=== PATIENT | female | born 1950 | race Caucasian/White ===

== ENCOUNTER → 2017-08-13 11:37 | Outpatient (CLI) | payer MEDICARE, OTHER, SELFPAY ==
[2017-06-03 06:57] VITALS: BMI 39.2
[2017-06-03 08:10] VITALS: BP 126/72
[2017-08-18 12:25] LABS: Vitamin D 1,25-Dihydroxy 55.5 pg/mL (19.9-79.3)
== END ==
PROVIDERS: Family Provider Family Medicine; PCP Family Medicine; Visit Provider Family Medicine
DX: E55.9 Vitamin D deficiency, unspecified (principal)
CPT/HCPCS: 36415; 82652

== ENCOUNTER → 2017-08-26 16:42 | Outpatient (CLI) | payer MEDICARE, OTHER, SELFPAY ==
[2017-08-26 12:55] LABS: Anion Gap 7 (5-15); BUN 11 mg/dL (7-18); Calcium,Total 8.7 mg/dL (8.5-10.1); Chloride 103 mmol/L (98-107); EST Glomerular Filtration Rate 53 mL/min (>60); Est Glom Filt Rate - Afr Amer 64 mL/min (>60); Glucose 123 mg/dL (74-106); Potassium 4.3 mmol/L (3.5-5.1); Sodium Level 140 mmol/L (136-145)
== END ==
PROVIDERS: Family Provider Family Medicine; PCP Family Medicine; Visit Provider Family Medicine
DX: Z00.00 Encounter for general adult medical examination without abnormal findings (principal)
CPT/HCPCS: 36415; 80048

== ENCOUNTER → 2017-12-16 10:08 | Outpatient (CLI) | payer MEDICARE, OTHER, SELFPAY ==
[2017-12-16 11:59] LABS: AST(SGOT) 25 U/L (15-37); Alanine Aminotransfer ALT/SGPT 32 U/L (13-56); Albumin, Serum 3.5 g/dL (3.2-5.0); Alkaline Phosphatase 97 U/L (45-117); Bilirubin, Direct 0.13 mg/dL (0.00-0.30); Cholesterol 139 mg/dL (200); Globulin 3.9 g/dL (2.2-4.2); High Density Lipoprotein 41 mg/dL; Protein, Total 7.4 g/dL (6.4-8.2); Triglycerides 133 mg/dL; Very Low Density Lipoprotein 27 mg/dL (5-40)
== END ==
PROVIDERS: Family Provider Family Medicine; PCP Family Medicine; Visit Provider Nurse Practitioner Family
DX: E78.5 Hyperlipidemia, unspecified (principal)
CPT/HCPCS: 36415; 80061; 80076

== ENCOUNTER → 2018-09-24 09:45 | Outpatient (CLI) | payer MEDICARE, OTHER, SELFPAY ==
[2018-06-18 10:08] VITALS: BMI 40.6
--- NOTE | 2018-09-24 09:51 | VDLE_ITS ---
Reason For Study: LEG PAIN RIGHT LEFT GSV is normal. CFV is compressible, spontaneous, phasic, CFV is compressible, spontaneous, phasic, competent, and demonstrates normal competent and demonstrates normal augmentation. augmentation. FV is compressible, spontaneous, phasic, competent and demonstrates normal augmentation. POP V is compressible, spontaneous, phasic, competent and demonstrates normal augmentation. T/P Trunk is compressible. PTV is compressible. RT PerV is compressible. Procedure Exam performed in department. A preliminary report was called and/or faxed to Dr. Bolden. Interpretation Summary Deep veins of the right lower extremity are patent and compressible segmentally. There is no evidence of right lower extremity deep vein thrombosis. Valvular competence appears intact within the proximal deep venous system on the right . The right greater saphenous vein appears patent and compressible segmentally. Ordering Physician: Justin Bolden Referring Physician: Justin Bolden Performed By: Nita Isaac RVT
== END ==
PROVIDERS: Family Provider Family Medicine; PCP Family Medicine; Referring Provider Family Medicine; Visit Provider Family Medicine
DX: M79.661 Pain in right lower leg (principal)
CPT/HCPCS: 93971

== ENCOUNTER → 2018-10-21 | Outpatient (CLI) | payer MEDICARE, OTHER, SELFPAY ==
[2018-06-18 10:08] VITALS: BMI 40.6
[2018-10-21 12:37] LABS: Anion Gap 7 (5-15); BUN 14 mg/dL (7-18); BUN/Creat Ratio 14.3 RATIO (10-20); Calcium,Total 8.2 mg/dL (8.5-10.1); Chloride 103 mmol/L (98-107); Cholesterol 151 mg/dL (200); Creatinine, Serum 0.98 mg/dL (0.55-1.02); EST Glomerular Filtration Rate 60 mL/min (>60); Est Glom Filt Rate - Afr Amer 73 mL/min (>60); Glucose 150 mg/dL (74-106); High Density Lipoprotein 37 mg/dL; Potassium 3.9 mmol/L (3.5-5.1); Sodium Level 139 mmol/L (136-145); Triglycerides 133 mg/dL; Very Low Density Lipoprotein 27 mg/dL (5-40)
[2018-10-21 13:05] LABS: Vitamin D,25 Hydroxy 18.2 ng/mL (29.95-100.01)
== END | disposition home or self-care (01) ==
LOC: MFPLAB 09:48
PROVIDERS: Family Provider Family Medicine; PCP Family Medicine; Referring Provider Family Medicine; Visit Provider Family Medicine
DX: Z00.00 Encounter for general adult medical examination without abnormal findings (principal); E55.9 Vitamin D deficiency, unspecified
CPT/HCPCS: 36415; 80048; 80061; 82306

== ENCOUNTER → 2019-11-01 11:51 | Outpatient (CLI) | payer MEDICARE, OTHER, SELFPAY ==
[2019-06-21 08:49] VITALS: BMI 41.5
[2019-11-01 15:16] LABS: ALB/GLOB Ratio 1.1 RATIO (0.9-2.4); AST(SGOT) 24 U/L (15-37); Alanine Aminotransfer ALT/SGPT 34 U/L (13-56); Albumin, Serum 3.6 g/dL (3.2-5.0); Alkaline Phosphatase 113 U/L (45-117); Anion Gap 5 (5-15); BUN 14 mg/dL (7-18); BUN/Creat Ratio 15.5 RATIO (10-20); Calcium,Total 8.4 mg/dL (8.5-10.1); Chloride 104 mmol/L (98-107); Cholesterol 164 mg/dL (200); EST Glomerular Filtration Rate 66 mL/min (>60); Est Glom Filt Rate - Afr Amer 80 mL/min (>60); Globulin 3.4 g/dL (2.2-4.2); Glucose 157 mg/dL (74-106); High Density Lipoprotein 43 mg/dL; Potassium 4.4 mmol/L (3.5-5.1); Sodium Level 138 mmol/L (136-145); Triglycerides 156 mg/dL; Very Low Density Lipoprotein 31 mg/dL (5-40)
[2019-11-01 16:00] LABS: Vitamin D,25 Hydroxy 25.2 ng/mL
== END ==
PROVIDERS: PCP Family Medicine; Referring Provider Family Medicine; Visit Provider Family Medicine
DX: E78.5 Hyperlipidemia, unspecified (principal); E55.9 Vitamin D deficiency, unspecified
CPT/HCPCS: 36415; 80053; 80061; 82306

== ENCOUNTER → 2019-12-20 10:00 | Outpatient (CLI) | payer MEDICARE, OTHER, SELFPAY ==
[2019-06-21 08:49] VITALS: BMI 41.5
--- NOTE | 2019-12-20 10:04 | BI_ITS ---
MAMMOGRAPHY - BILATERAL SCREENING REASON FOR EXAM: Female, 69 years old. Routine annual screening examination. PERTINENT HISTORY: Non-contributory. Remote left breast biopsy. TECHNIQUE: Digital bilateral breast arturo (3D mammographic acquisition) in the CC and MLO projections. 2-D mediolateral oblique (MLO) and craniocaudad (CC) views of both breasts were obtained. CAD: Full Field Digital Mammography with Computer Added Detection was performed. COMPARISON: Comparison is made with prior examination dated February 05, 2017 and June 05, 2014. FINDINGS: Breast Composition: The breasts are almost entirely fatty. There are no dominant masses or suspicious calcifications. No other significant abnormalities are identified. There has been no significant change since the prior study. BI/SCREEN MAMM (CAD) W/ARUTRO BILAT IMPRESSION: Stable bilateral screening mammogram. Yearly follow-up mammogram recommended. (A) ASSESSMENT CATEGORY: BIRADS Category 1: Negative. A letter regarding these results will be sent to the patient by the facility within 30 days. Approximately 10% of breast cancers are not detected by mammography. A normal mammogram should not delay biopsy of a clinically suspicious abnormality. [id number] Electronically Signed: Cisco Calderon, at 12:24 EDT , Service support ,
--- NOTE | 2019-12-20 10:21 | BD_ITS ---
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 COMPARISON: None. FINDINGS: Lumbar Spine (L1-L4): g/cm2 (1.338) / T-score (1.1) / Z-score (2.8) Findings are suggestive of normal bone density with a low fracture risk. Left Femur Total: g/cm2 (0.958) / T-score (-0.4) / Z-score (1.0) Left Femoral Neck: g/cm2 (0.882) / T-score (-1.1) / Z-score (0.5) BD/Dexa Bone Density Study IMPRESSION: The patient is considered osteopenic as outlined below according to World Julian Organization (WHO) criteria with a low fracture risk. Reference Information: The T-score is the number of standard deviations above or below the standard which is normal for young adults at their peak bone mineral density. The World Health Organization (WHO) interprets the T-scores as follows: Above -1 Normal bone density Between -1 and -2.5 Osteopenia Equal to / or below -2.5 Osteoporosis As a practical clinical guideline, osteopenia may be graded as follows: Mild -1 through -1.5 Moderate -1.6 through -2.0 Severe -2.1 through -2.4 The Z-score is the number of standard deviations above or below age-matched controls. A Z-score of less than -1.5 would be considered abnormal. References: 1. NIH Osteoporosis and Related Bone Diseases http://www.osteo.org 2. International Society for Clinical Densitometry http://www.iscd.org 3. National Osteoporosis Foundation http://www.nof.org Electronically Signed: Cisco Calderon, at 14:55 EDT , Service support ,
== END ==
PROVIDERS: PCP Family Medicine; Referring Provider Family Medicine; Visit Provider Family Medicine
DX: Z12.31 Encounter for screening mammogram for malignant neoplasm of breast (principal); N95.9 Unspecified menopausal and perimenopausal disorder
CPT/HCPCS: 77063; 77067; 77080

== ENCOUNTER → 2020-12-14 13:54 | Outpatient (CLI) | payer MEDICARE, OTHER, SELFPAY ==
[2020-06-21 10:22] VITALS: BMI 44.4
--- NOTE | 2020-12-14 13:59 | CT_ITS ---
STUDY: LOW DOSE CT LUNG CANCER SCREENING REASON FOR EXAM: Female, 70 years old. SMOKING. Patient smoked 1 pack per day for 50 years. RADIATION DOSAGE (If Supplied By Facility): CTDIvol = ( 4.02 ) mGy, DLP = ( 119.33 ) mGycm TECHNIQUE: No contrast was administered. Low dose technique was utilized (average mAS-38 and kVp 120). 1.25 mm axial source images with a slice interval of 1.25-mm were reconstructed in lung windows. 2.5 mm axial source images with a slice interval of 2.5-mm were reconstructed in lung windows. 5.0 mm axial source images with a slice interval of 5.0-mm were reconstructed in soft tissue windows. Nodule measured using lung windows on PACS and/or independent workstation with automated measurement of minimum and maximum diameter. Nodule measurement reported as average diameter rounded to the nearest whole number. Growth is defined as an increase ins size of greater than 1.5 mm. COMPARISON: None. NODULES: There is a 2.6 mm noncalcified nodule in the peripheral lateral aspect of the right upper lobe as seen on axial image #59 and coronal image #178. 2 tiny calcified granulomas are seen in the anterior aspect of the right upper lobe. Emphysema: Minimal scarring in the lateral aspect of the left lower lobe. Endobronchial lesion: None Aorta: Atherosclerotic plaque formation. Coronary arteries: Coronary artery calcification. Heart: Unremarkable Pulmonary artery: Unremarkable Mediastinal nodes: Small mediastinal lymph nodes. Other chest and abdominal findings: CT/Low Dose CT Lung Screening IMPRESSION: Lung-RADS category 2 - Continue annual screening with LDCT in 12 months. IMPORTANT NOTES FOR USE: ACR Lung-RADS Version 1.1 Assessment Categories Release Date: 2018 Category: Coded 0-4 bases on nodule(s) with highest degree of suspicion. Negative screen is defined as categories 1 and 2; a positive screen is defined as categories 3 and 4. Category 3 and 4A nodules that are unchanged on interval CT should be coded as category 2, and individuals returned to screening in 12 months. Category 4X: Category 3 or 4 nodules with additional imaging findings that increase the suspicion of lung cancer, such as spiculation, GGN that doubles in size in 1 year, enlarged lymph notes, etc. Category Modifiers: S (significant finding unrelated to lung cancer) Electronically Signed: Cisco Calderon MD at 15:05 EDT , Service support ,
== END ==
PROVIDERS: PCP Family Medicine; Referring Provider Family Medicine; Visit Provider Family Medicine
DX: F17.210 Nicotine dependence, cigarettes, uncomplicated (principal)
CPT/HCPCS: 71271

== ENCOUNTER → 2021-01-18 11:07 | Outpatient (CLI) | payer MEDICARE, OTHER, SELFPAY ==
[2020-06-21 10:22] VITALS: BMI 44.4
[2021-01-18 12:31] LABS: Anion Gap 5 (5-15); BUN 12 mg/dL (7-18); BUN/Creat Ratio 11.5 RATIO (10-20); Chloride 102 mmol/L (98-107); Cholesterol 139 mg/dL (200); Creatinine, Serum 1.04 mg/dL (0.55-1.02); EST Glomerular Filtration Rate 56 mL/min (>60); Est Glom Filt Rate - Afr Amer 67 mL/min (>60); Glucose 134 mg/dL (74-106); High Density Lipoprotein 43 mg/dL; Potassium 4.3 mmol/L (3.5-5.1); Sodium Level 137 mmol/L (136-145); Triglycerides 156 mg/dL; Very Low Density Lipoprotein 31 mg/dL (5-40)
== END ==
PROVIDERS: PCP Family Medicine; Visit Provider Family Medicine
DX: I10 Essential (primary) hypertension (principal)
CPT/HCPCS: 36415; 80048; 80061

== ENCOUNTER → 2021-06-19 12:45 | Outpatient (CLI) | payer MEDICARE, OTHER, SELFPAY ==
--- NOTE | 2021-06-19 12:48 | ECHOCS_ITS ---
Version 2 Procedure The study was technically difficult. Contrast injection was performed. Exam performed in department. Left Ventricle Normal LV size. Moderate concentric left ventricular hypertrophy. Left ventricular systolic function is normal. The estimated ejection fraction is 60 %. Stage 1 diastolic dysfunction. No regional wall motion abnormalities noted. Right Ventricle Normal RV size. Normal systolic function. Atria Normal left atrium. Normal right atrium. Mitral Valve Normal mitral valve. Tricuspid Valve The tricuspid valve is not well visualized. Aortic Valve The aortic valve is not well visualized. Pulmonic Valve The pulmonic valve is not well visualized. Great Vessels Normal aortic root. The pulmonary is not well visualized. Normal inferior vena cava. Pericardium/Pleural No pericardial effusion. Medication 22 gauge I.V. with prn adaptor inserted into left arm. Diluted definity 2ml given slow IV push to enhance endocardial definition. MMode/2D Measurements & Calculations LVIDd: 4.0 cm IVSd: 1.8 cm LA dimension: 3.6 cm LVIDs: 2.4 cm LVPWd: 1.6 cm FS: 40.1 % LAV(MOD-sp4): 50.0 ml LA A4 area: 18.8 cm2 RA A4 area: 12.8 cm2 Time Measurements MV dec time: 0.35 sec Doppler Measurements & Calculations MV E max jose: 76.2 cm/sec Lat Peak E' Jose: 7.4 cm/sec Med Peak E' Jose: 7.3 cm/sec MV A max jose: 99.0 cm/sec E/E' lat: 10.3 E/E' med: 10.4 MV E/A: 0.77 MV V2 max: 119.8 cm/sec MV P1/2t max jose: 109.1 cm/sec Ao V2 max: 130.3 cm/sec MV max P.7 mmHg MV P1/2t: 86.4 msec Ao max P.8 mmHg MV V2 mean: 72.9 cm/sec MV dec slope: 369.8 cm/sec2 MV mean P.4 mmHg MV V2 VTI: 35.4 cm MVA(P1/2t): 2.5 cm2 LV V1 max: 121.8 cm/sec PA V2 max: 116.6 cm/sec LV V1 max P.9 mmHg ECHO/Echo Complete W/ Contrast Interpretation Summary Normal LV size. Left ventricular systolic function is normal. The estimated ejection fraction is 60 %. Stage 1 diastolic dysfunction. Moderate concentric left ventricular hypertrophy. Contrast injection was performed. The study was technically difficult. Ordering Physician: Kamaljit Trevizo Referring Physician: Justin Bolden Performed By: Keven Mera RCS
== END ==
PROVIDERS: PCP Family Medicine; Referring Provider Internal Medicine Cardiovascular Disease; Visit Provider Internal Medicine Cardiovascular Disease
DX: I25.10 Atherosclerotic heart disease of native coronary artery without angina pectoris (principal)
CPT/HCPCS: 93306; Q9957; A4216; C8929

== ENCOUNTER → 2022-09-12 | Outpatient (CLI) | payer MEDICARE, OTHER, SELFPAY ==
[2022-09-12 18:16] LABS: ALB/GLOB Ratio 0.8 RATIO (0.9-2.4); AST(SGOT) 33 U/L (15-37); Alanine Aminotransfer ALT/SGPT 37 U/L (13-56); Albumin, Serum 3.5 g/dL (3.2-5.0); Alkaline Phosphatase 94 U/L (45-117); Anion Gap 8 (5-15); BUN 11 mg/dL (7-18); BUN/Creat Ratio 11.8 RATIO (10-20); Chloride 100 mmol/L (98-107); Cholesterol 139 mg/dL (200); Creatinine, Serum 0.94 mg/dL (0.55-1.02); EST Glomerular Filtration Rate 63 mL/min (>60); Est Glom Filt Rate - Afr Amer 76 mL/min (>60); Globulin 4.3 g/dL (2.2-4.2); Glucose 143 mg/dL (74-106); High Density Lipoprotein 44 mg/dL; Potassium 4.2 mmol/L (3.5-5.1); Protein, Total 7.8 g/dL (6.4-8.2); Sodium Level 139 mmol/L (136-145); Triglycerides 140 mg/dL; Very Low Density Lipoprotein 28 mg/dL (5-40)
== END | disposition home or self-care (01) ==
LOC: MFPLAB 14:10
PROVIDERS: PCP Family Medicine; Referring Provider Family Medicine; Visit Provider Family Medicine
DX: E78.5 Hyperlipidemia, unspecified (principal)
CPT/HCPCS: 36415; 80053; 80061

== ENCOUNTER 2023-03-19 14:14 | Inpatient (IN) | payer MEDICARE, OTHER, SELFPAY ==
[2023-03-19] VITALS (10 sets, daily range): BP systolic 136–203; BP diastolic 73–121; PULSE 62–98; RESP 16–24; TEMP 36.3–36.6; O2SAT 68–99; BMI 51.8; BMI 41.8
--- NOTE | 2023-03-19 14:37 | EKG12_ITS ---
Test Reason : SOB Blood Pressure : / mmHG Vent. Rate : 071 BPM Atrial Rate : 071 BPM P-R Int : 198 ms QRS Dur : 076 ms QT Int : 384 ms P-R-T Axes : 064 -25 058 degrees QTc Int : 417 ms Sinus rhythm with Premature supraventricular complexes Septal infarct , age undetermined Abnormal ECG Confirmed by MIKAELA BEYER, CINTHYA ([id number]), newspaper managing editor VANDANA ALVARADO ([id number]) on 03/24/2023 2:03:09 PM Referred By: JASEN Confirmed By:CINTHYA AL MD
--- NOTE | 2023-03-19 14:41 | EDS_ITS ---
HPI History of Present Illness Chief Complaint: Shortness of Breath Narrative Narrative: 72-year-old female presents with dyspnea. She has noticed it over the last couple of months but really over the last couple of weeks she has noticed even worse. She says she states she is gaining weight but she does not on a scale. She does have some ankle edema and left foot edema which is noticed over the last couple weeks as well. She states that currently she thinks she could walk from her room to the triage station, however couple of months ago she could walk much further without a difficulty. She denies any chest pain. No fevers or chills. Patient has history of COPD and is currently weaning down. She states he has not had any cigarettes today and is really only of smoking a couple a day. She states she is going to stop now. She does not feel like she is wheezing. [facility] Medical History Atherosclerotic heart disease of [place] coronary artery without angina pectoris Bronchitis COPD (chronic obstructive pulmonary disease) Diabetes Essential (primary) hypertension Hyperlipidemia LBBB (left bundle branch block) Nicotine abuse Nonischemic cardiomyopathy Home Medications albuterol sulfate 90 mcg/actuation aerosol inhaler 2 puff inhalation Q4H PRN SHORTNESS OF BREATH/WHEEZING 10/02/16 [History Last Taken Unknown] aspirin 81 mg tablet,delayed release 81 mg PO DAILY HEART HEALTH 10/02/16 [History Last Taken 03/18/23] imipramine HCl 25 mg tablet 25 - 50 mg PO QHS BLADDER CONTROL 10/02/16 [History Last Taken 03/18/23] lisinopril 20 mg tablet 20 mg PO BID BLOOD PRESSURE 10/02/16 [History Last Taken 03/18/23] simvastatin 40 mg tablet 40 mg PO QHS CHOLESTEROL 10/02/16 [History Last Taken 03/18/23] cholecalciferol (vitamin D3) 50 mcg (2,000 unit) capsule 2,000 unit PO DAILY SUPPLEMENT 11/24/17 [History Last Taken 03/18/23] carvedilol 25 mg tablet 25 mg PO BID HEART #180 tabs 09/03/20 [Rx Last Taken 03/18/23] Allergy/AdvReac Type Severity Reaction Status Date / Time Iodinated Contrast Media Allergy Other Verified 10/21/22 13:06 [CONTRASTS] meperidine [From Demerol] Allergy Unknown Verified 10/21/22 13:06 Penicillins [PCN] Allergy Rash Verified 10/21/22 13:06 Family History Mother Hypertension Diabetes Father Cancer Surgical History History of appendectomy History of cataract surgery History of cholecystectomy History of colonoscopy with polypectomy History of left heart catheterization (09/03/11) History of total hip arthroplasty Social History Smoking Status: Current every day smoker tobacco type: cigarettes alcohol intake: current substance use type: does not use ROS ROS ED Review of Systems ROS Unobtainable: Denies due to encephalopathy Constitutional Constitutional ED: Denies chills or fever(s) Eyes Eyes: Denies change in vision or diplopia ENT ENT ED: Denies rhinorrhea or sore throat Cardiovascular Cardiovascular: Denies chest pain or palpitations Respiratory/Chest Respiratory/Chest: Reports dyspnea and dyspnea on exertion Gastrointestinal Gastrointestinal: Denies abdominal pain, melena or nausea Genitourinary Genitourinary ED: Denies dysuria or hematuria Musculoskeletal Musculoskeletal: Denies arthralgias Integumentary Denies Abrasions Neurologic Neurologic: Denies headache(s) or paresthesias Psychiatric Psychiatric: Denies anxiety or depression EXAM Physical Exam Const Vital Signs: 03/19/23 14:15 03/19/23 14:25 03/19/23 15:30 Temperature 98 F Temperature Source Oral Pulse Rate 71 Respiratory Rate 24 H Respiratory Effort Normal Blood Pressure 203/121 H Blood Pressure Mean 148 Pulse Ox 68 Oxygen Delivery Method Room Air Nasal Cannula Nasal Cannula Oxygen Flow Rate (L/min) 2 2 03/19/23 16:49 03/19/23 17:22 Temperature 97.8 F Temperature Source Temporal Pulse Rate 98 75 Respiratory Rate 18 18 Respiratory Effort Blood Pressure 187/87 H 155/100 H Blood Pressure Mean 120 118 Pulse Ox 99 94 Oxygen Delivery Method Room Air Nasal Cannula Oxygen Flow Rate (L/min) 2 Positive well nourished HEENT Reports moist mucous membranes and dry mucous membranes Mouth ED: Yes dry mucous membranes Mouth: dry mucous membranes Eyes PERRL and EOMs intact bilaterally Neck no lymphadenopathy and supple Resp Auscultation: diminished lung sounds bilateral throughout Cardio regular rate and regular rhythm GI non-tender Back/Spine no CVA tenderness Extremity General Extremety ED: Yes edema and tenderness General Extremity: edema Neuro oriented x3 and CN's II-XII intact bilaterally Sensorium / Orientation: alert Psych mental status grossly normal Skin no wounds MDM MDM MDM Narrative Medical decision making narrative: 72-year-old female presenting with hypoxia. Patient denies any chest pain. This has been ongoing problem for a couple of months but worse over the last couple of weeks. She has history of COPD but does not feel like she is wheezing and I do not hear any wheezing on exam. Patient noted to be hypertensive. Differential includes CHF, COPD exacerbation, pneumonia, dehydration, electrolyte abnormalities, anemia, hypertension. Given 5 mg of hydralazine elevated blood pressure of 203/85. Will reevaluate. Patient states her blood pressure is never this high. Was obtained to assess white blood cell count, hemoglobin, platelets. BMP to assess renal function, electrolytes, glucose. High-sensitivity troponin, EKG to assess for ischemia and dysrhythmia. Chest x- ray to rule out pneumonia or CHF. BNP to assess for CHF. CBC shows normal white blood cell count 8.3. Hemoglobin slightly hemoconcentrated at 17.3. Recheck of blood pressure not under 155/100. Renal function and electrolytes unremarkable. High-sensitivity troponin is 8. BNP 56 and therefore within normal limits. Chest x-ray on my interpretation concerning for right-sided infiltrate. I did obtain a noncontrast CT scan to differentiate this and shows bilateral pleural effusions. It is unclear the etiology has a BNP is normal. Patient has no white count either. She is hypoxic into the 60s. And will need to be admitted. Discussed with hospitalist for admission. Impression: 1. Hypoxic respiratory failure 2. CHF 3. Dyspnea Lab Data Attestation: I reviewed the patient's lab results. Labs: Laboratory Results - last 24 hr 03/19/23 03/19/23 14:46 15:11 WBC 8.3 RBC 5.70 H Hgb 17.3 H Hct 57.7 H MCV 101.2 H MCH 30.4 MCHC 30.0 L RDW Std Deviation 53.9 H RDW Coeff of Ju[place] 14.5 Plt Count 210 MPV 11.9 Immature Gran % (Auto) 0.200 Neut % (Auto) 69.8 Lymph % (Auto) 19.5 Donley % (Auto) 8.1 Eos % (Auto) 1.7 Baso % (Auto) 0.7 Absolute Neuts (auto) 5.8 Absolute Lymphs (auto) 1.62 Nucleated RBC % 0 Sodium Cancelled 139 Potassium Cancelled 4.3 Chloride Cancelled 105 Carbon Dioxide Cancelled 33.0 H Anion Gap Cancelled 1 L BUN Cancelled 8 Creatinine Cancelled 0.78 Estim Creat Clear Calc Cancelled 43.91 Est GFR (MDRD) Af Amer Cancelled 94 Est GFR (MDRD) Non-Af Cancelled 78 BUN/Creatinine Ratio Cancelled 10.3 Glucose Cancelled 114 H Calcium Cancelled 8.4 L Troponin I High Sens Cancelled 8 B-Natriuretic Peptide 56.0 Radiography Diagnostic Testing: Clinical Impression(s) from Imaging Studies Chest X-Ray 03/19/23 15:00 IMPRESSION: Mild degree of increased markings in the right midlung. Early infiltrate should be ruled out. Electronically Signed: Cisco Calderon MD at 15:17 EDT , Chest CT 03/19/23 16:00 IMPRESSION: Bilateral pleural effusions. Electronically Signed: Cipriano Jefferson DO at 16:41 EDT , Discharge Plan Triage Chief Complaint: Shortness of Breath ED Provider: Harjit Ivory Dx/Rx/DC Orders Primary Care Provider: Justin Bolden
[2023-03-19] MEDS: hydrALAZINE 20 MG/ML Vial 5 MG IV (14:47)
[2023-03-19 14:49] LABS: Absolute Lymphocyte Count 1.62 X10^3/uL (0.83-4.51); Absolute Neutrophil Count 5.8 X10^3/uL (2.0-7.7); Basophil# 0.06 X10^3/uL; Basophil% 0.7 % (0-1); Eosinophil# 0.14 X10^3/uL; Eosinophils% 1.7 % (0-5); Hemoglobin 17.3 g/dL (12.0-15.0); Lymphocyte # 1.62 X10^3/ul (0.83-4.51); Lymphocyte % 19.5 % (19-41); Mean Corpuscular Hgb 30.4 pg (27.0-32.0); Mean Corpuscular Volume 101.2 fL (81-99); Mean Platelet Vol. 11.9 fl (6.2-12.0); Monocyte# 0.67 X10^3/uL; Monocyte% 8.1 % (0-10); NRBC Flagged by Analyzer 0 % (0-5); Neutrophil # 5.81 X10^3/uL (2.7-7.7); Neutrophil % 69.8 % (47-70); Platelet Count 210 K/mm3 (150-450); RBC Distribution Width CV 14.5 % (11.6-14.6); RBC Distribution Width SD 53.9 fl (35.1-43.9); White Blood Count 8.3 K/mm3 (4.4-11.0)
[2023-03-19 14:51] LABS: Hematocrit 57.7 % (37-47)
--- NOTE | 2023-03-19 15:00 | RAD_ITS ---
STUDY: X-RAY CHEST REASON FOR EXAM: Female, 72 years old. Chest pain TECHNIQUE: Single AP portable view of the chest. COMPARISON: Comparison is made with prior study dated October 02, 2016. FINDINGS: EKG electrodes are seen. Mild degree of increased markings in the right mid lung. Early infiltrate should be ruled out. There is no demonstrated pleural abnormality. There is moderate cardiac enlargement. Normal mediastinum and maninder. Normal visualized pulmonary arteries. Normal visualized aortic arch and descending thoracic aorta. There are diffuse degenerative changes of the visualized thoracic spine. Normal visualized ribs, clavicles, and shoulders. There is no demonstrated abnormality of the visualized soft tissue structures of the upper abdomen. RAD/Chest 1 View (Portable) IMPRESSION: Mild degree of increased markings in the right midlung. Early infiltrate should be ruled out. Electronically Signed: Cisco Calderon MD at 15:17 EDT ,
[2023-03-19 15:58] LABS: Anion Gap 1 (5-15); BUN 8 mg/dL (7-18); BUN/Creat Ratio 10.3 RATIO (10-20); Calcium,Total 8.4 mg/dL (8.5-10.1); Chloride 105 mmol/L (98-107); Creatinine, Serum 0.78 mg/dL (0.55-1.02); EST Glomerular Filtration Rate 78 mL/min (>60); Est Glom Filt Rate - Afr Amer 94 mL/min (>60); Estimated Creatinine Clearance 43.91 ml/min; Glucose 114 mg/dL (74-106); Potassium 4.3 mmol/L (3.5-5.1); Sodium Level 139 mmol/L (136-145); Troponin-I HS 8 pg/mL (3.0-54.0)
--- NOTE | 2023-03-19 16:00 | CT_ITS ---
INDICATION: dyspnea EXAMINATION: CT CHEST WITHOUT CONTRAST - CT Chest W/O Contrast Injection TECHNIQUE: Helically acquired images were obtained of the chest. A radiation dose optimization technique was used for this scan. IV Contrast dosage and agent: None. RADIATION DOSAGE (If Supplied By Facility): CTDIvol = ( 20.15 ) mGy, DLP = ( 770.34 ) mGycm COMPARISON: FINDINGS: LUNGS, PLEURA AND LARGE AIRWAYS: Bilateral mild pleural effusions, right more than left. No pneumothorax. THYROID: No thyroid lesions. HEART AND PERICARDIUM: Heart size is normal. No pericardial effusion. CORONARY ARTERIES: Coronary artery calcifications are noted VESSELS: Thoracic aorta is not dilated. MEDIASTINUM AND JARROD: No mediastinal or hilar adenopathy. Esophagus is unremarkable. No hiatal hernia. UPPER ABDOMEN: Possible left adrenal 1.5 cm nodule. BONES: Degenerative vertebral changes. CT/Chest without Contrast IMPRESSION: Bilateral pleural effusions. Electronically Signed: Cipriano Jefferson DO at 16:41 EDT Reading Location ID and State: [facility] / [place] Tel [phone], Service support ,
--- NOTE | 2023-03-19 16:50 | ED.RN ---
Patient Cleaned of incontinent urine. Cleaned and new linens applied.
--- NOTE | 2023-03-19 17:49 | HP.PCM.HOS_ITS ---
HPI - General General Date of Admission: 03/19/23 Date of Service: 03/19/23 Chief Complaint: Low O2 HPI Narrative LUCIANA AYALA, is a 72 F with history reportedly of COPD, hypertension, CAD who presented to [facility] 03/19/2023 due to low oxygen saturation. Reportedly she has had increased shortness of breath on and off for the past 1 to 2 months and over the past 3 to 4 days has been using her albuterol with increasing frequency. Today she went to her primary care physician's office and was found to have an oxygen saturation of 70% on room air and she was sent to the ED. In the ED she was 68% on room air and was placed on 2 L with improvement of sats when she was at rest, SBP 203/121. X-ray showed small pleural effusions and CT confirmed this with no other abnormalities appreciated. She 5 of hydralazine with improvement in her blood pressure. Hospitalist called for admission due to her hypoxia. Patient evaluated bedside and reports she is feeling slightly better than when she walked in, does still note shortness of breath, reports chronic cough with no increase in frequency or sputum production and has had no fevers. Has noticed increased feet swelling over the past few weeks but does not weigh herself, has had some lower back aching as well. Denies any chest pain, no headache or changes in vision. No other complaints at this time. Discussed her reported history of COPD and she said that is what they told me and that she is never seen a lung specialist or had testing for this but does take her albuterol. [facility] Medical History Atherosclerotic heart disease of [place] coronary artery without angina pectoris Bronchitis COPD (chronic obstructive pulmonary disease) Diabetes Essential (primary) hypertension Hyperlipidemia LBBB (left bundle branch block) Nicotine abuse Nonischemic cardiomyopathy Home Medications albuterol sulfate 90 mcg/actuation aerosol inhaler 2 puff inhalation Q4H PRN SHORTNESS OF BREATH/WHEEZING 10/02/16 [History Last Taken Unknown] aspirin 81 mg tablet,delayed release 81 mg PO DAILY HEART HEALTH 10/02/16 [History Last Taken 03/18/23] imipramine HCl 25 mg tablet 25 - 50 mg PO QHS BLADDER CONTROL 10/02/16 [History Last Taken 03/18/23] lisinopril 20 mg tablet 20 mg PO BID BLOOD PRESSURE 10/02/16 [History Last Taken 03/18/23] simvastatin 40 mg tablet 40 mg PO QHS CHOLESTEROL 10/02/16 [History Last Taken 03/18/23] cholecalciferol (vitamin D3) 50 mcg (2,000 unit) capsule 2,000 unit PO DAILY SUPPLEMENT 11/24/17 [History Last Taken 03/18/23] carvedilol 25 mg tablet 25 mg PO BID HEART #180 tabs 09/03/20 [Rx Last Taken 03/18/23] Allergy/AdvReac Type Severity Reaction Status Date / Time Iodinated Contrast Media Allergy Other Verified 10/21/22 13:06 [CONTRASTS] meperidine [From Demerol] Allergy Unknown Verified 10/21/22 13:06 Penicillins [PCN] Allergy Rash Verified 10/21/22 13:06 Family History Mother Hypertension Diabetes Father Cancer Surgical History History of appendectomy History of cataract surgery History of cholecystectomy History of colonoscopy with polypectomy History of left heart catheterization (09/03/11) History of total hip arthroplasty Social History Smoking Status: Current every day smoker tobacco type: cigarettes alcohol intake: current substance use type: does not use ROS ROS Narrative General: Denies fever/chills HENT: Denies headache, denies stuffy nose, denies sore throat EYES: Denies changes in vision Resp: Chronic cough with no change, shortness of breath increasing over the past 1 month Cardiac: Denies chest pain GI: Denies abdominal pain, denies changes in bowel, denies nausea/vomiting : Denies changes in urination Extremity: Some swelling in her legs MSK: Denies weakness Neuro: Denies any numbness/tingling Heme: Denies any bleeding or bruising Skin: Denies rashes Psychiatric: No complaints voiced Vital Signs Vital Signs Vital Signs: 03/19/23 14:15 03/19/23 14:25 03/19/23 15:30 Temperature 98 F Temperature Source Oral Pulse Rate 71 Respiratory Rate 24 H Respiratory Effort Normal Blood Pressure 203/121 H Blood Pressure Mean 148 Pulse Ox 68 Oxygen Delivery Method Room Air Nasal Cannula Nasal Cannula Oxygen Flow Rate (L/min) 2 2 03/19/23 16:49 03/19/23 17:22 Temperature 97.8 F Temperature Source Temporal Pulse Rate 98 75 Respiratory Rate 18 18 Respiratory Effort Blood Pressure 187/87 H 155/100 H Blood Pressure Mean 120 118 Pulse Ox 99 94 Oxygen Delivery Method Room Air Nasal Cannula Oxygen Flow Rate (L/min) 2 Weight Weight: 137 kg Body Mass Index (BMI) 51.8 Physical Exam Narrative General: Alert, oriented, no apparent distress HEENT: Atraumatic, normocephalic Eyes: Anicteric, normal conjunctiva, extraocular movements grossly intact Neck: Supple Respiratory: Diminished bilaterally with slight increase in respiratory effort Cardiovascular: Regular rate and rhythm GI: Soft, nontender, nondistended Extremities: Slight edema in lower extremities without significant pitting Musculoskeletal: Moving all extremities Neuro: No overt focal neurological deficits Skin: No rashes appreciated Psych: Cooperative Results Lab / Micro Data 03/19/23 14:46 03/19/23 15:11 Labs: Laboratory Results - last 24 hr 03/19/23 14:46: WBC 8.3, RBC 5.70 H, Hgb 17.3 H, Hct 57.7 H, MCV 101.2 H, MCH 30.4, MCHC 30.0 L, RDW Std Deviation 53.9 H, RDW Coeff of Juventino 14.5, Plt Count 210, MPV 11.9, Immature Gran % (Auto) 0.200, Neut % (Auto) 69.8, Lymph % (Auto) 19.5, Stark % (Auto) 8.1, Eos % (Auto) 1.7, Baso % (Auto) 0.7, Absolute Neuts (auto) 5.8, Absolute Lymphs (auto) 1.62, Nucleated RBC % 0, Sodium Cancelled, Potassium Cancelled, Chloride Cancelled, Carbon Dioxide Cancelled, Anion Gap Cancelled, BUN Cancelled, Creatinine Cancelled, Estim Creat Clear Calc Cancelled, Est GFR (MDRD) Af Amer Cancelled, Est GFR (MDRD) Non-Af Cancelled, BUN/Creatinine Ratio Cancelled, Glucose Cancelled, Calcium Cancelled, Troponin I High Sens Cancelled, B-Natriuretic Peptide 56.0 03/19/23 15:11: Sodium 139, Potassium 4.3, Chloride 105, Carbon Dioxide 33.0 H, Anion Gap 1 L, BUN 8, Creatinine 0.78, Estim Creat Clear Calc 43.91, Est GFR (MDRD) Af Amer 94, Est GFR (MDRD) Non-Af 78, BUN/Creatinine Ratio 10.3, Glucose 114 H, Calcium 8.4 L, Troponin I High Sens 8 Radiology Impression Chest X-Ray 03/19/23 15:00 IMPRESSION: Mild degree of increased markings in the right midlung. Early infiltrate should be ruled out. Electronically Signed: Cisco Calderon MD at 15:17 EDT , Chest CT 03/19/23 16:00 IMPRESSION: Bilateral pleural effusions. Electronically Signed: Cipriano Jefferson DO at 16:41 EDT , Assessment & Plan Assessment/Plan (1) Hypoxia: (2) Nicotine abuse: (3) Essential (primary) hypertension: PLAN: Plan #SOB with hypoxia -68% on RA on arrival, improved with O2 -Patient has documented history of COPD and uses albuterol at home, will sched ule nebs, no wheezing and do not feel IV steroids are necessary at this time -BNP was within normal limits and troponin also within normal limits, though CT and chest x-ray showed small pleural effusions -We will obtain echocardiogram to evaluate for any abnormalities and ideally pressures as well -Suspect there is a chronic component given her elevated hemoglobin and bicarb, will obtain VBG, also would benefit from outpatient sleep apnea evaluation and pulm follow-up -Additionally will get D-dimer, do not think the effusions that count for the extent of her hypoxia -We will also get COVID and respiratory panels though this is less likely given her timeline -Incentive spirometer, daily weights, I's and O's -EKG normal sinus rhythm with PVCs and heart rate of 71 #Hypertensive urgency -SBP 203/121 on arrival but no evidence of endorgan damage -Received hydralazine as needed -We will give patient her lisinopril and carvedilol and continue the as needed hydralazine, reports at home she does not run even close to this #Tobacco use -Advise cessation -Patient agreeable to nicotine replacement #Morbid obesity -BMI 51.8 kg/m? -Complicates treatment, prognosis, outcomes -Recommend weight loss and lifestyle changes #Possible adrenal incedentaloma -CT queried 1.5cm left adrenal nodule- will need further evaluation moving forward #DVT ppx: Lovenox subcu Jennie Salgado MD Charges/Coding Visit Charges Inpatient E&M: 14525 Init Hosp L2
[2023-03-19 19:53] LABS: D-Dimer Quantitative (DVT/PE) 1.17 FEU/ug/m (0.27-0.49)
--- NOTE | 2023-03-19 19:55 | ECHOCS_ITS ---
Reason For Study: Dyspnea/SOB Procedure This was a 2D Doppler, Color Flow transthoracic echocardiogram. Contrast injection was performed. Exam performed portable in patient room. Left Ventricle Normal LV size. Moderate eccentric left ventricular hypertrophy. Left ventricular systolic function is normal. The estimated ejection fraction is 70 %. Stage 1 diastolic dysfunction. No regional wall motion abnormalities noted. Right Ventricle Normal RV size. Normal systolic function. Atria Normal left atrium. Normal right atrium. Mitral Valve Normal mitral valve. Tricuspid Valve Normal tricuspid valve. Aortic Valve Trisinus/trileaflet aortic valve. Moderate focal aortic valve calcification. Pulmonic Valve Normal pulmonic valve. Great Vessels Normal aortic root. The pulmonary artery is normal size. Normal inferior vena cava. Pericardium/Pleural No pericardial effusion. Medication Diluted definity 3ml given slow IV push to enhance endocardial definition. MMode/2D Measurements & Calculations LVIDd: 4.4 cm IVSd: 1.8 cm LVOT diam: 2.0 cm LVIDs: 2.5 cm LVPWd: 0.75 cm RVDd: 3.5 cm FS: 44.1 % LVOT area: 3.1 cm2 Ao root diam: 3.2 cm LAV(MOD-bp): 45.7 ml LVAd ap4: 27.6 cm2 LAV(MOD-bp) Indexed: 19.7 ml/m2 LVLd ap4: 7.9 cm LAV(MOD-sp2): 30.5 ml EDV(MOD-sp4): 80.7 ml LAV(MOD-sp4): 53.3 ml EDV(sp4-el): 82.0 ml LVAs ap4: 13.9 cm2 LVLs ap4: 6.4 cm ESV(MOD-sp4): 25.2 ml ESV(sp4-el): 25.7 ml EF(MOD-sp4): 68.8 % EF(sp4-el): 68.6 % SV(MOD-sp4): 55.5 ml SV(sp4-el): 56.2 ml LA A4 area: 19.7 cm2 LA dimension(2D): 3.8 cm RA A4 area: 12.4 cm2 TAPSE: 2.8 cm Time Measurements MV dec time: 0.31 sec Doppler Measurements & Calculations MV E max jose: 78.3 cm/sec Lat Peak E' Jose: 9.2 cm/sec Med Peak E' Jose: 7.9 cm/sec MV A max jose: 106.0 cm/sec E/E' lat: 8.5 E/E' med: 9.9 MV E/A: 0.74 MV dec slope: 254.9 cm/sec2 Ao V2 max: 246.6 cm/sec LV V1 max: 144.1 cm/sec Ao max P.4 mmHg LV V1 max P.3 mmHg Ao V2 mean: 191.1 cm/sec LV V1 mean P.6 mmHg Ao mean P.6 mmHg LV V1 mean: 113.7 cm/sec Ao V2 VTI: 56.2 cm LV V1 VTI: 33.9 cm AV (velocity ratio): 0.60 UBALDO(I,D): 1.9 cm2 UBALDO(V,D): 1.8 cm2 SV(LVOT): 105.9 ml PA V2 max: 108.6 cm/sec ECHO/Echo Complete W/ Contrast Interpretation Summary Normal LV size. Left ventricular systolic function is normal. The estimated ejection fraction is 70 %. Stage 1 diastolic dysfunction. Moderate focal aortic valve calcification. Ordering Physician: Jennie Salgado Referring Physician: Justin Bolden Performed By: Daphne Cao, RDCS, RVT
--- NOTE | 2023-03-19 20:32 | VDLE_ITS ---
Reason For Study: Elevated D Dimer RIGHT LEFT GSV is normal. GSV is normal. CFV is compressible, spontaneous, phasic, CFV is compressible, spontaneous, phasic, competent and demonstrates normal competent, and demonstrates normal augmentation. augmentation. FV is compressible, spontaneous, phasic, FV is compressible, spontaneous, phasic, competent and demonstrates normal competent and demonstrates normal augmentation. augmentation. POP V is compressible, spontaneous, phasic, POP V is compressible, spontaneous, phasic, competent and demonstrates normal competent and demonstrates normal augmentation. augmentation. T/P Trunk is compressible. T/P Trunk is compressible. PTV is compressible. PTV is compressible. RT PerV is compressible. LT PerV is compressible. Procedure This is a venous duplex using B-mode, color flow and spectral Doppler. Exam performed portable in patient room. The exam was diagnostic. A preliminary report was called and/or faxed to PCU human resources trainee - Alex. VL/Venous Duplex US - Miguel Extrem Interpretation Summary Deep veins of the bilateral lower extremities are patent and compressible segme ntally. There is no evidence of bilateral lower extremity deep vein thrombosis. The bilateral great saphenous veins appear patent and compressible segmentally. Ordering Physician: Jennie Salgado Referring Physician: Justin Bolden Performed By: Jake Saravia RVT
--- NOTE | 2023-03-19 20:39 | PCM.HOSP.N ---
Hospitalist Note Elevated ddimer and still unclear cause of her initial significant hypoxia on admission and doctors office, covid negative, ddimer elevated. Pt w/ allrgy to contrast, will get LE duplex, v/q scan, and given lack of explanation for symptoms w/ significant desats w/ movement will treat w/ heparin gtt empirically with plan to deescalate if negative
[2023-03-19] MEDS: 0.9% Saline Lock 10 ML Syringe IV ×2 (21:17→22:49)
[2023-03-19] MEDS: Lisinopril 20 MG Tablet PO (21:17)
[2023-03-19] MEDS: Carvedilol 25 MG Tablet PO (21:17)
[2023-03-19] MEDS: Atorvastatin Calcium 20 MG Tablet PO (21:17)
[2023-03-19] MEDS: Furosemide 20 MG/2 ML VIAL IV (21:17)
[2023-03-19 21:21] LABS: Partial Thromboplast Time 34.4 Seconds (24.1-36.2)
[2023-03-19] MEDS: Heparin Injection (Vial) 5,000 UNIT/ML VIAL 8000 UNIT IV (22:30)
[2023-03-19] MEDS: HEPARIN/D5w 25,000 UNITS 25,000 UNITS/250 ML IV.SOLN. 15 UNITS CONT INF (22:47)
[2023-03-20] VITALS (11 sets, daily range): BP systolic 156–177; BP diastolic 71–82; PULSE 68–85; RESP 16–18; TEMP 36.4–36.8; O2SAT 89–95; BMI 39.7; BMI 40.5
[2023-03-20 04:49] LABS: Absolute Lymphocyte Count 2.04 X10^3/uL (0.83-4.51); Basophil% 0.8 % (0-1); Eosinophil# 0.18 X10^3/uL; Eosinophils% 1.5 % (0-5); Hematocrit 55.3 % (37-47); Hemoglobin 16.5 g/dL (12.0-15.0); Lymphocyte # 2.04 X10^3/ul (0.83-4.51); Lymphocyte % 16.5 % (19-41); Mean Corp Hgb Conc 29.8 g/dL (32-36); Mean Corpuscular Volume 100.5 fL (81-99); Mean Platelet Vol. 11.4 fl (6.2-12.0); Monocyte# 0.97 X10^3/uL; Monocyte% 7.9 % (0-10); NRBC Flagged by Analyzer 0 % (0-5); Neutrophil # 8.99 X10^3/uL (2.7-7.7); Neutrophil % 72.8 % (47-70); Platelet Count 214 K/mm3 (150-450); RBC Distribution Width CV 14.2 % (11.6-14.6); RBC Distribution Width SD 53.6 fl (35.1-43.9); White Blood Count 12.3 K/mm3 (4.4-11.0)
[2023-03-20 04:57] LABS: Blood Gas Specimen Type VEN; O2 Delivery Device Cannula; SITE Not entered; VBG BASE EXCESS 10 mmol/L (-1.0-3.5); VBG Bicarbonate 35 mmol/L (22-26); VBG PO2 40 mmHg (25-40); VBG SO2 71 % (50-70); VBG TCO2 37 mmol/L (23-33); VBG pCO2 60.5 mmHg (41-51); VBG pH 7.37 (7.32-7.42)
[2023-03-20 05:18] LABS: Anion Gap 2 (5-15); BUN 8 mg/dL (7-18); BUN/Creat Ratio 9.4 RATIO (10-20); Calcium,Total 8.3 mg/dL (8.5-10.1); Chloride 101 mmol/L (98-107); Creatinine, Serum 0.86 mg/dL (0.55-1.02); EST Glomerular Filtration Rate 69 mL/min (>60); Est Glom Filt Rate - Afr Amer 84 mL/min (>60); Estimated Creatinine Clearance 51.06 ml/min; Glucose 130 mg/dL (74-106); Potassium 3.7 mmol/L (3.5-5.1); Sodium Level 139 mmol/L (136-145); Thyroid Stim Hormone (TSH) 1.46 uIU/mL (0.358-3.74)
[2023-03-20 05:22] LABS: Partial Thromboplast Time > 200.0 Seconds (24.1-36.2)
[2023-03-20] MEDS: Ipratropium/Albuterol Sulfate 3 ML AMPUL.NEB INHALATION ×3 (07:02→19:38)
[2023-03-20] MEDS: Carvedilol 25 MG Tablet PO ×2 (10:15→22:28)
[2023-03-20] MEDS: Lisinopril 20 MG Tablet PO ×2 (10:15→22:28)
[2023-03-20] MEDS: Aspirin E.C. 81 MG Tablet PO (10:15)
--- NOTE | 2023-03-20 11:30 | CASEMGMT ---
MEDINA LANDIN Face to Face with patient for initial transition planning/care coordination assessment. RN CM introduced self and role at [facility]. Patient lying in bed, alert and oriented. Patient willing to participate in assessment and is able to answer all questions appropriately. Care providers, pharmacy, and demographics verified. Patient wishes to discharge home, denies need for home health at this time. Patient states she has no further needs or concerns at this time. CM to follow for discharge planning needs that may arise. 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 Patient states she is independent. Transportation: self, DME/HHC: Patient has shower chair, cane, walker, rollator, wheelchair, grab bars, lift chair at home. No previous HHC or SNF. Will monitor for home oxygen. Patient prefers [employer] for DME Disposition Plan: Patient to discharge home with family support and follow-up plans in place. Will monitor for home oxygen. Milka MORRISON, RN, CM
--- NOTE | 2023-03-20 11:39 | PN.HOSP_ITS ---
Subjective Subjective Feels about the same as yesterday, she still requiring 5 L nasal cannula. She is unclear as to the reaction she has had with contrast in the past however given the abnormality seen on chest x-ray cannot proceed with a VQ scan this was discussed with her and she is willing to try the protocol for CT scan with contr ast with an allergy. Objective Data Objective Data Vital Signs: Vital Signs Temp Pulse Resp BP Pulse Ox O2 Del Method O2 Flow Rate 98.2 F 68 18 160/72 H 94 Nasal Cannula 5 03/20/23 10:12 03/20/23 10:12 03/20/23 10:12 03/20/23 10:12 03/20/23 10:12 03/20/23 10:12 03/20/23 10:12 Oxygen Flow Rate (L/min) 5 Oxygen Delivery Method Nasal Cannula Weight: 236 lb 1.841 oz Body Mass Index (BMI) 40.5 Intake & Output: Intake and Output for Last 24 Hours 03/19/23 03/20/23 03/21/23 03:59 03:59 03:59 Intake Total 342.5 / 342.5 Output Total 1050 / 1050 950 / 950 Balance -1050 / -1050 -607.5 / -607.5 Lab / Micro Data 03/20/23 04:42 03/20/23 04:42 Labs: Laboratory Results - last 24 hr 03/19/23 14:46: WBC 8.3, RBC 5.70 H, Hgb 17.3 H, Hct 57.7 H, MCV 101.2 H, MCH 30.4, MCHC 30.0 L, RDW Std Deviation 53.9 H, RDW Coeff of Juventino 14.5, Plt Count 210, MPV 11.9, Immature Gran % (Auto) 0.200, Neut % (Auto) 69.8, Lymph % (Auto) 19.5, [place] % (Auto) 8.1, Eos % (Auto) 1.7, Baso % (Auto) 0.7, Absolute Neuts (auto) 5.8, Absolute Lymphs (auto) 1.62, Nucleated RBC % 0, Sodium Cancelled, Potassium Cancelled, Chloride Cancelled, Carbon Dioxide Cancelled, Anion Gap Cancelled, BUN Cancelled, Creatinine Cancelled, Estim Creat Clear Calc Cancelled, Est GFR (MDRD) Af Amer Cancelled, Est GFR (MDRD) Non-Af Cancelled, BUN/Creatinine Ratio Cancelled, Glucose Cancelled, Calcium Cancelled, Troponin I High Sens Cancelled, B-Natriuretic Peptide 56.0 03/19/23 15:11: Sodium 139, Potassium 4.3, Chloride 105, Carbon Dioxide 33.0 H, Anion Gap 1 L, BUN 8, Creatinine 0.78, Estim Creat Clear Calc 43.91, Est GFR (MDRD) Af Amer 94, Est GFR (MDRD) Non-Af 78, BUN/Creatinine Ratio 10.3, Glucose 114 H, Calcium 8.4 L, Troponin I High Sens 8 03/19/23 19:02: APTT 34.4, D-Dimer Quant (PE/DVT) 1.17 H* 03/20/23 04:42: WBC 12.3 H, RBC 5.50 H, Hgb 16.5 H, Hct 55.3 H, MCV 100.5 H, MCH 30.0, MCHC 29.8 L, RDW Std Deviation 53.6 H, RDW Coeff of Juventino 14.2, Plt Count 214, MPV 11.4, Immature Gran % (Auto) 0.500, Neut % (Auto) 72.8 H, Lymph % (Auto) 16.5 L, [place] % (Auto) 7.9, Eos % (Auto) 1.5, Baso % (Auto) 0.8, Absolute Neuts (auto) 9.0 H, Absolute Lymphs (auto) 2.04, Nucleated RBC % 0, APTT > 200.0 H*, Sodium 139, Potassium 3.7, Chloride 101, Carbon Dioxide 36.0 H, Anion Gap 2 L, BUN 8, Creatinine 0.86, Estim Creat Clear Calc 51.06, Est GFR (MDRD) Af Amer 84, Est GFR (MDRD) Non-Af 69, BUN/Creatinine Ratio 9.4 L, Glucose 130 H, Calcium 8.3 L, TSH 1.46 Micro: Microbiology 03/19/23 21:10 Mucosa - Nasopharyngeal Respiratory Panel (PCR) - Final 03/19/23 17:15 Nasal Secretion SARS-CoV-2 & FLU Antigen (Rapid) - Final ABG Data ABG results: ABG 03/20/23 04:50 Specimen Type NJ Sample Site Not entered O2 % 3.0 VBG pH 7.37 VBG pO2 40 VBG HCO3 35 H VBG Total CO2 37 H VBG O2 Sat (Calc) 71 H VBG Base Excess 10 H POC Mix VBG pCO2 Pt Tmp 60.5 H O2 Delivery Device Cannula Radiography Diagnostic Testing: Radiology Impression Chest X-Ray 03/19/23 15:00 IMPRESSION: Mild degree of increased markings in the right midlung. Early infiltrate should be ruled out. Electronically Signed: Cisco Calderon MD at 15:17 EDT , Chest CT 03/19/23 16:00 IMPRESSION: Bilateral pleural effusions. Electronically Signed: Cipriano Jefferson DO at 16:41 EDT , Physical Exam Narrative General: Alert, Oriented x3, Cooperative, mild to moderate respiratory distress HEENT: Atraumatic, PERRLA, EOMI, Normocephalic Oral: Moist Mucosa Neck: Supple, No JVD Lungs: Diminished, Normal air movement, No rhonchi, wheeze, No rales, intermittent tachypnea, can only do 3 word sentences, some retractions Cardiovascular: Regular rate, Regular Rhythm, Normal S1, Normal S2, No murmurs Abdomen: Soft, Non Tender, Non-Distended, No Hepato-splenomegaly Extremities: No edema, Capillary Refill Less than 3 Seconds Skin: No rashes, No breakdown Musculoskeletal: No Tenderness to Palpation of Joints or Extremities Neurological: Motor Exam 5/5 strength throughout, Sensory exam intact to light touch and pain Psych/Mental Status: Normal Affect, Appropriate Assessment & Plan Assessment/Plan (1) Hypoxia: (2) Nicotine abuse: (3) Essential (primary) hypertension: PLAN: Plan 1. Acute hypoxic respiratory failure unclear etiology/COPD/tobacco abuse -68% on RA on arrival, improved with O2 -Patient has documented history of COPD and uses albuterol at home, will schedule nebs, she did have some wheezing on my exam we will continue with breathing treatments May trial steroids -BNP was within normal limits and troponin also within normal limits, though CT and chest x-ray showed small pleural effusions -We will obtain echocardiogram to evaluate for any abnormalities and ideally pressures as well, lower extremity Doppler is also pending -Suspect there is a chronic component given her elevated hemoglobin and bicarb, will obtain VBG, also would benefit from outpatient sleep apnea evaluation and pulm follow-up -D-dimer was elevated however given the abnormal chest x-ray we will proceed with a CTA and placed on the contrast allergy protocol -COVID and respiratory panels are negative ? Discussed cessation 2. HTN/HLD/hypertensive urgency ? Present with a systolic blood pressure of 203 with no endorgan damage ? Continue with her home blood pressure medications ? We will continue to monitor and make adjustments as necessary 3. Morbid obesity -BMI 51.8 kg/m? -Complicates treatment, prognosis, outcomes -Recommend weight loss and lifestyle changes 4. Possible adrenal incedentaloma -CT queried 1.5cm left adrenal nodule ? Will need further evaluation moving forward DVT: Heparin drip Charges/Coding Visit Charges Inpatient E&M: 89708 Subs Hosp L2
[2023-03-20 14:33] LABS: Partial Thromboplast Time 101.8 Seconds (24.1-36.2)
--- NOTE | 2023-03-20 15:08 | CHAPLAIN ---
Type of Pastoral Visit _x__ Initial Visit ___ Follow-up Visit ___ On-call Visit ___ General Patient Visit ___ Spiritual Assessment ___ Family Conference ___ Bereavement ___ Rapid Response ___ Code Blue ___ Other (describe below) Pastoral Care Referral From __x_ Patient ___ Family ___ Nurse ___ Physician ___ Sash Repairer ___ Treasury Assistant ___ Other (describe below) Sacrament/Intervention _x__ Active listening ___ Anointing ___ Roman Catholic ___ Bereavement ___ Communion ___ Lyndsey exploration ___ _x__ Life review _x__ Prayer ___ Reconciliation ___ Sacrament of Sick _x__ Supportive presence ___ Wedding ___ Other (describe below) Pastoral Comments patient is given opportunity to express her situation and her life; pt uses that to talk about her life in review and mostly about her 39 yr old son living at home with many health issues; pt has concerns for her son's care; pt speaks of unknowns in her health and coming in yesterday to ED; pt is a member of a [employer] community but has not attended services in several years; pt welcomes presence and prayer for support
[2023-03-20] MEDS: predniSONE 20 MG Tablet 50 MG PO (18:20)
[2023-03-20] MEDS: HEPARIN/D5w 25,000 UNITS 25,000 UNITS/250 ML IV.SOLN. 10 UNITS CONT INF (20:20)
[2023-03-20 22:21] LABS: Partial Thromboplast Time 66.5 Seconds (24.1-36.2)
[2023-03-20] MEDS: Atorvastatin Calcium 20 MG Tablet PO (22:28)
[2023-03-21] VITALS (15 sets, daily range): BP systolic 113–148; BP diastolic 54–78; PULSE 67–74; RESP 16–20; TEMP 35.8–36.7; O2SAT 83–95; BMI 40.4
[2023-03-21] MEDS: predniSONE 20 MG Tablet 50 MG PO ×2 (01:12→06:59)
[2023-03-21 04:41] LABS: Absolute Lymphocyte Count 1.11 X10^3/uL (0.83-4.51); Absolute Neutrophil Count 7.5 X10^3/uL (2.0-7.7); Basophil# 0.02 X10^3/uL; Basophil% 0.2 % (0-1); Hemoglobin 16.5 g/dL (12.0-15.0); Lymphocyte # 1.11 X10^3/ul (0.83-4.51); Lymphocyte % 12.7 % (19-41); Mean Corp Hgb Conc 29.2 g/dL (32-36); Mean Corpuscular Hgb 29.8 pg (27.0-32.0); Mean Corpuscular Volume 102.2 fL (81-99); Mean Platelet Vol. 11.4 fl (6.2-12.0); Monocyte# 0.05 X10^3/uL; Monocyte% 0.6 % (0-10); NRBC Flagged by Analyzer 0 % (0-5); Neutrophil # 7.53 X10^3/uL (2.7-7.7); Neutrophil % 86.2 % (47-70); Platelet Count 174 K/mm3 (150-450); RBC Distribution Width CV 14.1 % (11.6-14.6); RBC Distribution Width SD 53.9 fl (35.1-43.9); Red Blood Count 5.54 M/mm3 (4.2-5.4); White Blood Count 8.7 K/mm3 (4.4-11.0)
[2023-03-21 04:55] LABS: Hematocrit 56.6 % (37-47)
[2023-03-21 05:37] LABS: Anion Gap 2 (5-15); BUN 12 mg/dL (7-18); BUN/Creat Ratio 15.2 RATIO (10-20); Calcium,Total 8.3 mg/dL (8.5-10.1); Chloride 104 mmol/L (98-107); Creatinine, Serum 0.79 mg/dL (0.55-1.02); EST Glomerular Filtration Rate 76 mL/min (>60); Est Glom Filt Rate - Afr Amer 92 mL/min (>60); Estimated Creatinine Clearance 43.91 ml/min; Glucose 206 mg/dL (74-106); Potassium 4.1 mmol/L (3.5-5.1); Sodium Level 137 mmol/L (136-145)
--- NOTE | 2023-03-21 05:55 | CT_ITS ---
HISTORY: SOB with elevated d-dimer. Has allergy, protocol initiated. TECHNIQUE: CT angiogram of the chest was performed after the intravenous administration of 100 mL Isovue-370. Post-processing of the angiographic images was performed with multiplanar reformation and 3D reconstruction. Individualized dose optimization techniques were used for this CT. 1164 images. COMPARISON: Noncontrast CT 03/19/2023, 12/14/2020. FINDINGS: CENTRAL AIRWAYS: Patent. LUNGS: Azygos lobe incidentally noted. Stable 2 m right upper lobe nodules with small blebs. 8 mm noncalcified left upper lobe suprahilar nodule on image 66/211. Increased right greater than left lower lobe atelectasis. PLEURA: Mild bilateral pleural effusions. HEART/PERICARDIUM: Heart within normal limits in size. No pericardial effusion. PULMONARY ARTERIES: No filling defect. AORTA/VESSELS: No thoracic aortic aneurysm or dissection flap. MEDIASTINUM/JARROD: No pathologically enlarged lymph nodes. OSSEOUS STRUCTURES: Degenerative change. UPPER ABDOMEN: 2 cm left adrenal adenoma. Calcified hepatic and splenic granulomas. CT/CTA Chest W/WO Contrast IMPRESSION: No evidence of pulmonary embolism. Stable since 12/2020 8 mm left upper lobe pulmonary nodule; recommend continued follow-up with annual screening. Stable 2 mm right upper lobe nodules. Increased mild bibasilar atelectasis with persistent mild bilateral pleural effusions. Electronically Signed: Julieta Horan MD at 9:18 EDT ,
[2023-03-21] MEDS: DiphenhydrAMINE 25 MG Capsule 50 MG PO (06:59)
[2023-03-21] MEDS: Ipratropium/Albuterol Sulfate 3 ML AMPUL.NEB INHALATION ×3 (07:59→19:35)
--- NOTE | 2023-03-21 08:20 | NURSING ---
Patient left unit for CT scan. Per nursing judgement Ativan dose held at this time- patient drowsy from prior dose of Benadryl given at 0700. Will monitor.
--- NOTE | 2023-03-21 08:37 | PN.HOSP_ITS ---
Subjective Subjective Sleepy this morning because she had received Benadryl for the contrast for CTA as well as a dose of Ativan per claustrophobia Objective Data Objective Data Vital Signs: Vital Signs Temp Pulse Resp BP Pulse Ox O2 Del Method O2 Flow Rate 96.8 F L 68 18 148/77 H 95 Nasal Cannula 5 03/21/23 08:03 03/21/23 08:03 03/21/23 08:03 03/21/23 08:03 03/21/23 08:03 03/21/23 08:03 03/21/23 08:03 Oxygen Flow Rate (L/min) 5 Oxygen Delivery Method Nasal Cannula Weight: 235 lb 10.786 oz Body Mass Index (BMI) 40.4 Intake & Output: Intake and Output for Last 24 Hours 03/20/23 03/21/23 03/22/23 03:59 03:59 03:59 Intake Total 832.17 / 832.17 88 / 88 Output Total 1050 / 1050 1550 / 1550 350 / 350 Balance -1050 / -1050 -717.83 / -717.83 -262 / -262 Lab / Micro Data 03/21/23 04:30 03/21/23 04:30 Labs: Laboratory Results - last 24 hr 03/20/23 13:50: APTT 101.8 H* 03/20/23 21:56: APTT 66.5 H 03/21/23 04:30: WBC 8.7, RBC 5.54 H, Hgb 16.5 H, Hct 56.6 H, MCV 102.2 H, MCH 29.8, MCHC 29.2 L, RDW Std Deviation 53.9 H, RDW Coeff of [place] 14.1, Plt Count 174, MPV 11.4, Immature Gran % (Auto) 0.300, Neut % (Auto) 86.2 H, Lymph % (Auto) 12.7 L, [place] % (Auto) 0.6, Eos % (Auto) 0.0, Baso % (Auto) 0.2, Absolute Neuts (auto) 7.5, Absolute Lymphs (auto) 1.11, Nucleated RBC % 0, APTT 89.0 H, Sodium 137, Potassium 4.1, Chloride 104, Carbon Dioxide 31.0, Anion Gap 2 L, BUN 12, Creatinine 0.79, Estim Creat Clear Calc 43.91, Est GFR (MDRD) Af Amer 92, Est GFR (MDRD) Non-Af 76, BUN/Creatinine Ratio 15.2, Glucose 206 H, Calcium 8.3 L Micro: Microbiology 03/19/23 21:10 Mucosa - Nasopharyngeal Respiratory Panel (PCR) - Final 03/19/23 17:15 Nasal Secretion SARS-CoV-2 & FLU Antigen (Rapid) - Final Radiography Diagnostic Testing: Radiology Impression Echocardiogram 03/19/23 19:55 Interpretation Summary Normal LV size. Left ventricular systolic function is normal. The estimated ejection fraction is 70 %. Stage 1 diastolic dysfunction. Moderate focal aortic valve calcification. Ordering Physician: Jennie Salgado Referring Physician: Justin Bolden Performed By: Daphne Cao, CLAUDE, RVT Physical Exam Narrative General: Alert, Oriented x3, Cooperative, mild to moderate respiratory distress HEENT: Atraumatic, PERRLA, EOMI, Normocephalic Oral: Moist Mucosa Neck: Supple, No JVD Lungs: Diminished, Normal air movement, No rhonchi, wheeze, No rales, intermittent tachypnea, can only do 3 word sentences, some retractions Cardiovascular: Regular rate, Regular Rhythm, Normal S1, Normal S2, No murmurs Abdomen: Soft, Non Tender, Non-Distended, No Hepato-splenomegaly Extremities: No edema, Capillary Refill Less than 3 Seconds Skin: No rashes, No breakdown Musculoskeletal: No Tenderness to Palpation of Joints or Extremities Neurological: Motor Exam 5/5 strength throughout, Sensory exam intact to light touch and pain Psych/Mental Status: Normal Affect, Appropriate Assessment & Plan Assessment/Plan (1) Hypoxia: (2) Nicotine abuse: (3) Essential (primary) hypertension: PLAN: Plan 1. Acute hypoxic respiratory failure unclear etiology/COPD/tobacco abuse -68% on RA on arrival, improved with O2 -Patient has documented history of COPD and uses albuterol at home, will schedule nebs, she did have some wheezing on my exam we will continue with breathing treatments May trial steroids -BNP was within normal limits and troponin also within normal limits, though CT and chest x-ray showed small pleural effusions -Echo with 70% EF and stage I diastolic dysfunction no signs of right heart strain -Suspect there is a chronic component given her elevated hemoglobin and bicarb, will obtain VBG, also would benefit from outpatient sleep apnea evaluation and pulm follow-up -D-dimer was elevated however given the abnormal chest x-ray we will proceed with a CTA and placed on the contrast allergy protocol -COVID and respiratory panels are negative ? Discussed cessation 2. HTN/HLD/hypertensive urgency ? Present with a systolic blood pressure of 203 with no endorgan damage ? Continue with her home blood pressure medications ? We will continue to monitor and make adjustments as necessary 3. Morbid obesity -BMI 51.8 kg/m? -Complicates treatment, prognosis, outcomes -Recommend weight loss and lifestyle changes 4. Possible adrenal incedentaloma -CT queried 1.5cm left adrenal nodule ? Will need further evaluation moving forward DVT: Heparin drip Charges/Coding Visit Charges Inpatient E&M: 65108 Subs Hosp L2
[2023-03-21] MEDS: Lisinopril 20 MG Tablet PO ×2 (08:44→21:34)
[2023-03-21] MEDS: Carvedilol 25 MG Tablet PO ×2 (08:45→21:34)
[2023-03-21] MEDS: Aspirin E.C. 81 MG Tablet PO (08:45)
[2023-03-21] MEDS: Miconazole Nitrate 43 GM Bottle 1 APPLIC TOPICAL ×2 (08:45→21:34)
--- NOTE | 2023-03-21 09:17 | CASEMGMT ---
Pox put on chart with green sheet to be given to pt.
[2023-03-21] MEDS: Furosemide 40 MG/4 ML Vial IV (12:33)
[2023-03-21 13:08] LABS: Partial Thromboplast Time 84.5 Seconds (24.1-36.2)
[2023-03-21] MEDS: Atorvastatin Calcium 20 MG Tablet PO (21:34)
[2023-03-21 22:00] LABS: Partial Thromboplast Time 42.4 Seconds (24.1-36.2)
[2023-03-22] VITALS (10 sets, daily range): BP systolic 131–155; BP diastolic 58–92; PULSE 69–79; RESP 16–20; TEMP 36.1–36.8; O2SAT 90–95; BMI 40.4
[2023-03-22] MEDS: HEPARIN/D5w 25,000 UNITS 25,000 UNITS/250 ML IV.SOLN. 9 UNITS CONT INF (00:49)
[2023-03-22 06:31] LABS: Absolute Lymphocyte Count 1.43 X10^3/uL (0.83-4.51); Absolute Neutrophil Count 23.1 X10^3/uL (2.0-7.7); Basophil# 0.05 X10^3/uL; Basophil% 0.2 % (0-1); Eosinophil# 0.57 X10^3/uL; Eosinophils% 2.1 % (0-5); Hematocrit 52.9 % (37-47); Lymphocyte # 1.43 X10^3/ul (0.83-4.51); Lymphocyte % 5.4 % (19-41); Mean Corp Hgb Conc 30.2 g/dL (32-36); Mean Corpuscular Hgb 30.1 pg (27.0-32.0); Mean Corpuscular Volume 99.4 fL (81-99); Mean Platelet Vol. 12.3 fl (6.2-12.0); Monocyte# 1.34 X10^3/uL; NRBC Flagged by Analyzer 0 % (0-5); Neutrophil # 23.06 X10^3/uL (2.7-7.7); Neutrophil % 86.8 % (47-70); POSITIVE DIFFERENTIAL YES; Platelet Count 183 K/mm3 (150-450); RBC Distribution Width CV 14.3 % (11.6-14.6); RBC Distribution Width SD 52.1 fl (35.1-43.9); Red Blood Count 5.32 M/mm3 (4.2-5.4); White Blood Count 26.6 K/mm3 (4.4-11.0)
[2023-03-22 06:36] LABS: Differential Indicated SCAN CRITERIA MET
[2023-03-22 06:42] LABS: Partial Thromboplast Time 50.4 Seconds (24.1-36.2)
[2023-03-22 07:08] LABS: Differential Comment SCANNED
[2023-03-22 07:15] LABS: Anion Gap 2 (5-15); BUN 19 mg/dL (7-18); BUN/Creat Ratio 19.6 RATIO (10-20); Calcium,Total 8.8 mg/dL (8.5-10.1); Chloride 100 mmol/L (98-107); Creatinine, Serum 0.97 mg/dL (0.55-1.02); EST Glomerular Filtration Rate 60 mL/min (>60); Est Glom Filt Rate - Afr Amer 73 mL/min (>60); Estimated Creatinine Clearance 45.27 ml/min; Glucose 163 mg/dL (74-106); Potassium 4.1 mmol/L (3.5-5.1); Sodium Level 137 mmol/L (136-145)
[2023-03-22] MEDS: Ipratropium/Albuterol Sulfate 3 ML AMPUL.NEB INHALATION ×3 (07:36→19:14)
[2023-03-22] MEDS: Carvedilol 25 MG Tablet PO ×2 (08:36→21:55)
[2023-03-22] MEDS: Aspirin E.C. 81 MG Tablet PO (08:36)
[2023-03-22] MEDS: Lisinopril 20 MG Tablet PO ×2 (08:37→21:56)
[2023-03-22] MEDS: Miconazole Nitrate 43 GM Bottle 1 APPLIC TOPICAL ×2 (08:37→21:55)
[2023-03-22] MEDS: Furosemide 40 MG/4 ML Vial IV ×2 (08:51→17:27)
[2023-03-22] MEDS: 0.9% Saline Lock 10 ML Syringe IV (08:52)
[2023-03-22] MEDS: Heparin Injection (Vial) 5,000 UNIT/ML VIAL IV ×2 (08:52→22:33)
--- NOTE | 2023-03-22 09:45 | PN.HOSP_ITS ---
Subjective Subjective Doing well, no issues overnight. Still requiring around 6-8 L nasal cannula Objective Data Objective Data Vital Signs: Vital Signs Temp Pulse Resp BP Pulse Ox O2 Del Method O2 Flow Rate 97.2 F L 76 16 132/92 H 94 High Flow 6 03/22/23 08:30 03/22/23 08:30 03/22/23 08:30 03/22/23 08:30 03/22/23 08:30 03/22/23 08:30 03/22/23 08:30 Oxygen Flow Rate (L/min) [ 10 AMBULATING with Oxygen #3] Oxygen Flow Rate (L/min) [ 7 AMBULATING with Oxygen #2] Oxygen Flow Rate (L/min) [ 5 AMBULATING with Oxygen #1] Oxygen Flow Rate (L/min) [At 5 REST with Oxygen] Oxygen Flow Rate (L/min) 6 Oxygen Delivery Method High Flow Weight: 235 lb 10.786 oz Body Mass Index (BMI) 40.4 Intake & Output: Intake and Output for Last 24 Hours 03/21/23 03/22/23 03/23/23 03:59 03:59 03:59 Intake Total 832.17 / 832.17 490.00 / 490.00 292.6 / 292.6 Output Total 1550 / 1550 1100 / 1100 400 / 400 Balance -717.83 / -717.83 -610.00 / -610.00 -107.4 / -107.4 Lab / Micro Data 03/22/23 06:00 03/22/23 06:00 Labs: Laboratory Results - last 24 hr 03/21/23 12:43: APTT 84.5 H 03/21/23 20:55: APTT 42.4 H 03/22/23 06:00: WBC 26.6 H, RBC 5.32, Hgb 16.0 H, Hct 52.9 H, MCV 99.4 H, MCH 30.1, MCHC 30.2 L, RDW Std Deviation 52.1 H, RDW Coeff of [place] 14.3, Plt Count 183, MPV 12.3 H, Immature Gran % (Auto) 0.500, Neut % (Auto) 86.8 H, Lymph % (Auto) 5.4 L, [place] % (Auto) 5.0, Eos % (Auto) 2.1, Baso % (Auto) 0.2, Absolute Neuts (auto) 23.1 H, Absolute Lymphs (auto) 1.43, Nucleated RBC % 0, Differential Comment SCANNED, APTT 50.4 H, Sodium 137, Potassium 4.1, Chloride 100, Carbon Dioxide 35.0 H, Anion Gap 2 L, BUN 19 H, Creatinine 0.97, Estim Creat Clear Calc 45.27, Est GFR (MDRD) Af Amer 73, Est GFR (MDRD) Non-Af 60, BUN/Creatinine Ratio 19.6, Glucose 163 H, Calcium 8.8 Micro: Microbiology 03/19/23 21:10 Mucosa - Nasopharyngeal Respiratory Panel (PCR) - Final 03/19/23 17:15 Nasal Secretion SARS-CoV-2 & FLU Antigen (Rapid) - Final Physical Exam Narrative General: Alert, Oriented x3, Cooperative, mild to moderate respiratory distress HEENT: Atraumatic, PERRLA, EOMI, Normocephalic Oral: Moist Mucosa Neck: Supple, No JVD Lungs: Diminished, Normal air movement, No rhonchi, wheeze, No rales, intermittent tachypnea, can only do 3 word sentences, some retractions Cardiovascular: Regular rate, Regular Rhythm, Normal S1, Normal S2, No murmurs Abdomen: Soft, Non Tender, Non-Distended, No Hepato-splenomegaly Extremities: No edema, Capillary Refill Less than 3 Seconds Skin: No rashes, No breakdown Musculoskeletal: No Tenderness to Palpation of Joints or Extremities Neurological: Motor Exam 5/5 strength throughout, Sensory exam intact to light touch and pain Psych/Mental Status: Normal Affect, Appropriate Assessment & Plan Assessment/Plan (1) Hypoxia: (2) Nicotine abuse: (3) Essential (primary) hypertension: PLAN: Plan 1. Acute hypoxic respiratory failure unclear etiology/COPD/tobacco abuse -68% on RA on arrival, improved with O2 -Patient has documented history of COPD and uses albuterol at home, will schedule nebs, she did have some wheezing on my exam we will continue with breathing treatments ? We will place on p.o. prednisone -BNP was within normal limits and troponin also within normal limits, though CT and chest x-ray showed small pleural effusions -Echo with 70% EF and stage I diastolic dysfunction no signs of right heart strain -Suspect there is a chronic component given her elevated hemoglobin and bicarb, will obtain VBG, also would benefit from outpatient sleep apnea evaluation and pulm follow-up -D-dimer was elevated proceed with a CTA which was negative for PE but it did show bilateral minimal pleural effusions ? We will continue with the heparin drip as the Doppler ultrasounds have not been read yet -COVID and respiratory panels are negative ? Discussed cessation 2. HTN/HLD/hypertensive urgency ? Present with a systolic blood pressure of 203 with no endorgan damage ? Continue with her home blood pressure medications ? We will continue to monitor and make adjustments as necessary ? To help with her breathing will continue with twice daily Lasix monitor her renal function 3. Morbid obesity -BMI 51.8 kg/m? -Complicates treatment, prognosis, outcomes -Recommend weight loss and lifestyle changes 4. Possible adrenal incedentaloma -CT queried 1.5cm left adrenal nodule ? Will need further evaluation moving forward DVT: Heparin drip Charges/Coding Visit Charges Inpatient E&M: 21792 Subs Hosp L2
[2023-03-22 09:51] LABS: Bacteria 0 SEEN /hpf (None Seen); Mucous, Urine 0 SEEN /hpf (<or=2+); Red Blood Cells-Urine 0 SEEN /hpf (0-5)
[2023-03-22 10:01] LABS: Color, Urine Yellow (Yellow); Glucose, Dipstick Normal (Normal); Ketone-Dipstick Negative (Negative); Leukocyte Esterase-Dipstick Negative /ul (Negative); Nitrite-Dipstick Negative (Negative); Occult Blood-Urine Negative /ul (Negative); Protein-Dipstick 30 mg/dl (Negative); Specific Gravity, Urine 1.015 (1.002-1.030); Urine Bilirubin Dipstick Negative (Negative); Urine Clarity Clear (Clear); Urine Urobilinogen 1 mg/dl (Normal)
[2023-03-22 10:07] LABS: Squamous Epithelial Cells - UA 0-5 SEEN /hpf (5-10)
[2023-03-22 10:08] LABS: White Blood Cells 0 SEEN /hpf (0-5)
[2023-03-22] MEDS: predniSONE 20 MG Tablet 40 MG PO (11:43)
[2023-03-22] MEDS: Menthol/Lanolin/Calamine/Znox 113 GM Tube 1 APPLIC TOPICAL ×2 (13:39→21:55)
[2023-03-22 15:25] LABS: Partial Thromboplast Time 58.5 Seconds (24.1-36.2)
[2023-03-22] MEDS: Atorvastatin Calcium 20 MG Tablet PO (21:55)
[2023-03-22 22:14] LABS: Partial Thromboplast Time 50.4 Seconds (24.1-36.2)
[2023-03-23] VITALS (8 sets, daily range): BP systolic 131–146; BP diastolic 53–79; PULSE 71–84; RESP 18–20; TEMP 36.4–36.7; O2SAT 91–94; BMI 40.8
[2023-03-23] MEDS: HEPARIN/D5w 25,000 UNITS 25,000 UNITS/250 ML IV.SOLN. 11 UNITS CONT INF (00:15)
[2023-03-23 04:35] LABS: Absolute Lymphocyte Count 1.38 X10^3/uL (0.83-4.51); Absolute Neutrophil Count 14.8 X10^3/uL (2.0-7.7); Basophil# 0.03 X10^3/uL; Basophil% 0.2 % (0-1); Hematocrit 50.7 % (37-47); Hemoglobin 15.3 g/dL (12.0-15.0); Lymphocyte # 1.38 X10^3/ul (0.83-4.51); Mean Corp Hgb Conc 30.2 g/dL (32-36); Mean Corpuscular Hgb 29.9 pg (27.0-32.0); Monocyte# 0.94 X10^3/uL; Monocyte% 5.4 % (0-10); NRBC Flagged by Analyzer 0 % (0-5); Neutrophil # 14.82 X10^3/uL (2.7-7.7); Neutrophil % 85.8 % (47-70); Platelet Count 176 K/mm3 (150-450); RBC Distribution Width CV 14.3 % (11.6-14.6); RBC Distribution Width SD 52.6 fl (35.1-43.9); Red Blood Count 5.12 M/mm3 (4.2-5.4); White Blood Count 17.3 K/mm3 (4.4-11.0)
[2023-03-23 04:51] LABS: Anion Gap 2 (5-15); BUN 19 mg/dL (7-18); Calcium,Total 8.3 mg/dL (8.5-10.1); Chloride 100 mmol/L (98-107); Creatinine, Serum 0.73 mg/dL (0.55-1.02); EST Glomerular Filtration Rate 83 mL/min (>60); Est Glom Filt Rate - Afr Amer 101 mL/min (>60); Estimated Creatinine Clearance 43.91 ml/min; Glucose 218 mg/dL (74-106); Sodium Level 138 mmol/L (136-145)
[2023-03-23 05:20] LABS: Partial Thromboplast Time 83.6 Seconds (24.1-36.2)
[2023-03-23] MEDS: Menthol/Lanolin/Calamine/Znox 113 GM Tube 1 APPLIC TOPICAL ×3 (05:43→21:28)
[2023-03-23] MEDS: predniSONE 20 MG Tablet 40 MG PO (08:30)
[2023-03-23] MEDS: Lisinopril 20 MG Tablet PO ×2 (08:31→21:30)
[2023-03-23] MEDS: Miconazole Nitrate 43 GM Bottle 1 APPLIC TOPICAL ×2 (08:31→21:28)
[2023-03-23] MEDS: Carvedilol 25 MG Tablet PO ×2 (08:31→21:28)
[2023-03-23] MEDS: Aspirin E.C. 81 MG Tablet PO (08:31)
[2023-03-23] MEDS: Furosemide 40 MG/4 ML Vial IV ×2 (08:39→18:39)
[2023-03-23] MEDS: 0.9% Saline Lock 10 ML Syringe IV ×4 (08:39→21:29)
--- NOTE | 2023-03-23 11:21 | CASEMGMT ---
Social Work LW/POA scanned into [facility], pt has Robbie Seth listed as healthcare POA. ЮЛИЯ Oakley
--- NOTE | 2023-03-23 11:26 | CON.PCM.CC_ITS ---
Assessment & Plan Assessment/Plan (1) Hypoxia: PLAN: Plan RECOMMENDATIONS: 1. Wean supplemental oxygen to maintain saturations at or above 90%. 2. Continue attempts at gentle diuresis as tolerated by hemodynamics and renal function. 3. Continue scheduled bronchodilators. 4. Transition to prednisone 40 mg daily beginning tomorrow. Anticipate 5-day burst at discharge. 5. Perform walking oximetry study prior to consideration for discharge home. 6. Outpatient pulmonary follow-up in 2 weeks. IMPRESSIONS: 1. Shortness of breath and hypoxemia The patient presented to the hospital with blood pressures in excess of 200 mmHg systolic and radiographic evidence of pleural effusions and atelectasis. In addition, the patient has an extensive tobacco abuse history and could certainly have an underlying component of obstructive lung disease. I do suspect that based upon her polycythemia, she has likely been hypoxemic for quite some time. At this time, it is reasonable to continue scheduled bronchodilators, steroids and IV Lasix, as tolerated by hemodynamics and renal function. The patient should be encouraged to utilize her incentive spirometer. Perform walking oximetry study prior to consideration for discharge home. The patient should ideally follow-up in the pulmonary medicine clinic in 2 weeks so that baseline PFTs can be obtained and maintenance bronchodilators initiated. 2. Chronic tobacco dependency The patient smoked until her admission to the hospital. She does have subce ntimeter pulmonary nodules on chest imaging, all of which appear to be stable. However, in light of her age and tobacco abuse history, recommend yearly low- dose CT imaging of the chest. 3. Morbid obesity/hypertension/hyperlipidemia Complicates care, management, recovery and prognosis. Continue home medications as indicated. This note was generated with [employer] dictation software. It may contain incorrect words, spelling, and punctuation that were not noted in checking the note before signing. HPI Consult Data Date of Consult: 03/24/23 HPI Narrative Reason for Consultation: COPD HPI Narrative: The patient is a 72-year-old female, with a history as outlined below, who presented to the emergency department on March 19 with shortness of breath and hypoxemia. The patient reported that she was being evaluated at the office of her primary care provider, at which time, she was noted to be significantly hypertensive with an oxygen saturation of approximately 90% on room air. She was subsequently referred to the emergency department for evaluation. The patient does have an extensive tobacco abuse history, but stated that she has not smoked any cigarettes since her admission to the hospital. She has never been evaluated by a dormitory keeper in the past. The patient has never completed pulmonary function studies. She does not regularly utilize supplemental oxygen at her baseline. On presentation to the emergency department, the patient was noted to be afebrile and was notably hypertensive with a blood pressure of 203/121 mmHg. The patient was hypoxemic, requiring supplemental oxygen. Initial laboratory evaluation demonstrated no evidence of a leukocytosis. Hemoglobin was elevated at 17.3 g/dL. Troponin and BNP were negative. Chemistry profile was notable for a bicarbonate of 33. Creatinine was within normal limits. CT imaging of the chest demonstrated bilateral pleural effusions. A CTA chest was then completed on March 21 which demonstrated no evidence for pulmonary embolism. The patient does have a stable subcentimeter pulmonary nodule in the left upper lobe. Echocardiogram completed on March 20 demonstrated moderate concentric LVH with stage I diastolic dysfunction. The patient was placed on bronchodilators, steroids and Lasix. [facility] Medical History (Updated 03/23/23 @ 19:[address] Blaise العلي, ) Atherosclerotic heart disease of [place] coronary artery without angina pectoris Bronchitis COPD (chronic obstructive pulmonary disease) Diabetes Essential (primary) hypertension Hyperlipidemia LBBB (left bundle branch block) Nicotine abuse Nonischemic cardiomyopathy Home Medications albuterol sulfate 90 mcg/actuation aerosol inhaler 2 puff inhalation Q4H PRN SHORTNESS OF BREATH/WHEEZING 10/02/16 [History Last Taken Unknown] aspirin 81 mg tablet,delayed release 81 mg PO DAILY HEART HEALTH 10/02/16 [History Last Taken 03/18/23] imipramine HCl 25 mg tablet 25 - 50 mg PO QHS BLADDER CONTROL 10/02/16 [History Last Taken 03/18/23] lisinopril 20 mg tablet 20 mg PO BID BLOOD PRESSURE 10/02/16 [History Last Taken 03/18/23] simvastatin 40 mg tablet 40 mg PO QHS CHOLESTEROL 10/02/16 [History Last Taken 03/18/23] cholecalciferol (vitamin D3) 50 mcg (2,000 unit) capsule 2,000 unit PO DAILY SUPPLEMENT 11/24/17 [History Last Taken 03/18/23] carvedilol 25 mg tablet 25 mg PO BID HEART #180 tabs 09/03/20 [Rx Last Taken 03/18/23] Allergy/AdvReac Type Severity Reaction Status Date / Time Iodinated Contrast Media Allergy Other Verified 10/21/22 13:06 [CONTRASTS] meperidine [From Demerol] Allergy Unknown Verified 10/21/22 13:06 Penicillins [PCN] Allergy Rash Verified 10/21/22 13:06 Family History Mother Hypertension Diabetes Father Cancer Surgical History History of appendectomy History of cataract surgery History of cholecystectomy History of colonoscopy with polypectomy History of left heart catheterization (09/03/11) History of total hip arthroplasty Social History Smoking Status: Current every day smoker tobacco type: cigarettes alcohol intake: current substance use type: does not use ROS ROS Narrative 10 systems were reviewed with pertinent positives as noted in the HPI above. Physical Exam Const alert and no apparent distress Constitutional Narrative: Obese. Sitting in bedside recliner. General Appearance: cooperative HEENT normocephalic and head/scalp atraumatic Eyes PERRL, EOMs intact bilaterally and conjunctivae normal Neck supple General: trachea midline Chest inspection of chest normal Resp normal respiratory effort Auscultation: rales and diminished lung sounds Cardio regular rate and regular rhythm GI normal to inspection, nondistended, normoactive bowel sounds Extremity no clubbing, cyanosis or edema Skin no rashes or lesions noted Neuro CN's II-XII intact bilaterally, moves all extremities and no focal motor deficits Psych cooperative and affect normal Lab / Micro Data 03/23/23 04:27 03/23/23 04:27 Labs: Laboratory Results - last 24 hr 03/22/23 14:56: APTT 58.5 H 03/22/23 21:35: APTT 50.4 H 03/23/23 04:27: WBC 17.3 H, RBC 5.12, Hgb 15.3 H, Hct 50.7 H, MCV 99.0, MCH 29. 9, MCHC 30.2 L, RDW Std Deviation 52.6 H, RDW Coeff of [place] 14.3, Plt Count 176, MPV 12.0, Immature Gran % (Auto) 0.600, Neut % (Auto) 85.8 H, Lymph % (Auto) 8.0 L, [place] % (Auto) 5.4, Eos % (Auto) 0.0, Baso % (Auto) 0.2, Absolute Neuts (auto) 14.8 H, Absolute Lymphs (auto) 1.38, Nucleated RBC % 0, APTT 83.6 H, Sodium 138, Potassium 4.0, Chloride 100, Carbon Dioxide 36.0 H, Anion Gap 2 L, BUN 19 H, Creatinine 0.73, Estim Creat Clear Calc 43.91, Est GFR (MDRD) Af Amer 101, Est GFR (MDRD) Non-Af 83, BUN/Creatinine Ratio 26.0 H, Glucose 218 H, Calcium 8.3 L Charges/Coding Visit Charges Inpatient E&M: 76659 Init Hosp L3
[2023-03-23 11:58] LABS: Partial Thromboplast Time 68.5 Seconds (24.1-36.2)
[2023-03-23] MEDS: Ipratropium/Albuterol Sulfate 3 ML AMPUL.NEB INHALATION ×2 (12:51→18:48)
[2023-03-23] MEDS: Methylprednisolone Sod Succ 40 MG/ML VIAL IV ×2 (15:32→21:28)
[2023-03-23 17:59] LABS: Partial Thromboplast Time 58.8 Seconds (24.1-36.2)
--- NOTE | 2023-03-23 19:41 | PCM.PN.HOSP ---
Reason for Visit Reason for Visit: Diagnoses Essential (primary) hypertension (03/19/23) Hypoxemia (03/19/23) Tobacco use (03/19/23) Subjective Subjective Patient was seen and examined today, she is still requiring 6 L of oxygen at rest, I had pulmonary medicine see the patient today for consultation. Objective Data Objective Data Vital Signs: Vital Signs Temp Pulse Resp BP Pulse Ox O2 Del Method O2 Flow Rate 98.0 F 76 18 136/71 H 93 Nasal Cannula 6 03/23/23 15:20 03/23/23 15:20 03/23/23 15:20 03/23/23 15:20 03/23/23 15:20 03/23/23 15:45 03/23/23 15:45 Oxygen Flow Rate (L/min) [ 10 AMBULATING with Oxygen #3] Oxygen Flow Rate (L/min) [ 7 AMBULATING with Oxygen #2] Oxygen Flow Rate (L/min) [ 5 AMBULATING with Oxygen #1] Oxygen Flow Rate (L/min) [At 5 REST with Oxygen] Oxygen Flow Rate (L/min) 6 Oxygen Delivery Method Nasal Cannula Weight: 108 kg Body Mass Index (BMI) 40.8 Intake & Output: Intake and Output for Last 24 Hours 03/21/23 03/22/23 03/23/23 23:59 23:59 23:59 Intake Total 233.95 / 473.95 1485.49 / 1685.49 588.96 / 588.96 Output Total 1050 / 1400 1550 / 2050 1400 / 1400 Balance -816.05 / -926.05 -64.51 / -364.51 -811.04 / -811.04 Lab / Micro Data 03/23/23 04:27 03/23/23 04:27 Labs: Laboratory Results - last 24 hr 03/22/23 21:35: APTT 50.4 H 03/23/23 04:27: WBC 17.3 H, RBC 5.12, Hgb 15.3 H, Hct 50.7 H, MCV 99.0, MCH 29.9, MCHC 30.2 L, RDW Std Deviation 52.6 H, RDW Coeff of [place] 14.3, Plt Count 176, MPV 12.0, Immature Gran % (Auto) 0.600, Neut % (Auto) 85.8 H, Lymph % (Auto) 8.0 L, [place] % (Auto) 5.4, Eos % (Auto) 0.0, Baso % (Auto) 0.2, Absolute Neuts (auto) 14.8 H, Absolute Lymphs (auto) 1.38, Nucleated RBC % 0, APTT 83.6 H, Sodium 138, Potassium 4.0, Chloride 100, Carbon Dioxide 36.0 H, Anion Gap 2 L, BUN 19 H, Creatinine 0.73, Estim Creat Clear Calc 43.91, Est GFR (MDRD) Af Amer 101, Est GFR (MDRD) Non-Af 83, BUN/Creatinine Ratio 26.0 H, Glucose 218 H, Calcium 8.3 L 03/23/23 11:43: APTT 68.5 H 03/23/23 17:24: APTT 58.8 H Micro: Microbiology 03/19/23 21:10 Mucosa - Nasopharyngeal Respiratory Panel (PCR) - Final 03/19/23 17:15 Nasal Secretion SARS-CoV-2 & FLU Antigen (Rapid) - Final Radiography Diagnostic Testing: Radiology Impression Venous Doppler Study 03/19/23 20:32 Interpretation Summary Deep veins of the bilateral lower extremities are patent and compressible segmentally. There is no evidence of bilateral lower extremity deep vein thrombosis. The bilateral great saphenous veins appear patent and compressible segmentally. Ordering Physician: Jennie Salgado Referring Physician: Justin Bolden Performed By: Jake Saravia RVJaz Physical Exam Const alert, oriented x3 and no apparent distress Constitutional Narrative: Patient is morbidly obese General Appearance: cooperative, well kempt and well developed Orientation / Consciousness: awake, oriented to person, oriented to place and oriented to time HEENT normocephalic, head/scalp atraumatic and moist oral mucous membranes Eyes PERRL, EOMs intact bilaterally and conjunctivae normal Neck supple, no JVD, thyroid normal and no carotid bruits General: trachea midline Resp normal respiratory effort, no retractions and no use of accessory muscles Resp Narrative: Scattered expiratory wheezes are noted bilaterally Auscultation: wheezes scattered wheezes and throughout; Negative for rales or rhonchi Cardio regular rate, regular rhythm, S1 normal heart sound, S2 normal heart sound, no murmurs, no rub and no gallops GI normal to inspection, nondistended, normoactive bowel sounds, soft to palpation, non-tender and non-distended Extremity no clubbing, cyanosis or edema Skin no rashes or lesions noted General Skin Exam: no breakdown Neuro oriented x3, CN's II-XII intact bilaterally, moves all extremities, no focal motor deficits and no sensory deficits noted Sensorium / Orientation: awake, alert, oriented to person, oriented to place and oriented to time Speech: speech normal Psych affect normal Assessment & Plan Assessment/Plan (1) COPD (chronic obstructive pulmonary disease): PLAN: Plan 1. Acute exacerbation of COPD-I placed the patient on IV corticosteroids today, she will continue to receive aerosol treatments, pulmonary medicine saw her in consultation today. #2 essential hypertension-patient will remain on her present blood pressure medications #3 acute hypoxic respiratory failure secondary to #1-patient's oxygen will be monitored, she is still on high flow oxygen #4 morbid obesity-complicates care, medical course, recovery, and prognosis #5 coronary artery disease-patient will remain on her present medications Patient's venous duplex of her lower extremities were negative for DVT, I have decided to stop her heparin drip Total clinical time spent by myself addressing the patient's medical issues, reviewing the data, and collaborating with patient's care team: 35 minutes Charges/Coding Visit Charges Inpatient E&M: 54614 Subs Hosp L2
[2023-03-23] MEDS: Atorvastatin Calcium 20 MG Tablet PO (21:28)
[2023-03-24] VITALS (8 sets, daily range): BP systolic 139–165; BP diastolic 65–77; PULSE 67–85; RESP 16–68; TEMP 36.3–36.8; O2SAT 92–94; BMI 41.0
[2023-03-24] MEDS: Methylprednisolone Sod Succ 40 MG/ML VIAL IV ×3 (05:32→21:14)
[2023-03-24] MEDS: 0.9% Saline Lock 10 ML Syringe IV ×5 (05:32→21:14)
[2023-03-24] MEDS: Ipratropium/Albuterol Sulfate 3 ML AMPUL.NEB INHALATION ×2 (07:04→19:03)
[2023-03-24] MEDS: Aspirin E.C. 81 MG Tablet PO (08:43)
[2023-03-24] MEDS: predniSONE 20 MG Tablet 40 MG PO (08:43)
[2023-03-24] MEDS: Miconazole Nitrate 43 GM Bottle 1 APPLIC TOPICAL ×2 (08:43→21:14)
[2023-03-24] MEDS: Carvedilol 25 MG Tablet PO ×2 (08:47→21:14)
[2023-03-24] MEDS: Lisinopril 20 MG Tablet PO ×2 (08:47→21:14)
[2023-03-24] MEDS: Furosemide 40 MG/4 ML Vial IV ×2 (10:09→17:42)
--- NOTE | 2023-03-24 10:10 | PN.CC_ITS ---
Assessment & Plan Assessment/Plan (1) Hypoxia: PLAN: Plan RECOMMENDATIONS: 1. Wean supplemental oxygen to maintain saturations at or above 90%. 2. Ongoing diuresis as tolerated by hemodynamics and renal function. 3. Continue scheduled bronchodilators. 4. Continue prednisone 40 mg daily. Anticipate 5-day burst at discharge. 5. Perform walking oximetry study prior to consideration for discharge home. 6. Outpatient pulmonary follow-up in 2 weeks. IMPRESSIONS: 1. Shortness of breath and hypoxemia The patient presented to the hospital with blood pressures in excess of 200 mmHg systolic and radiographic evidence of pleural effusions and atelectasis. In addition, the patient has an extensive tobacco abuse history and could certainly have an underlying component of obstructive lung disease. I do suspect that based upon her polycythemia, she has likely been hypoxemic for quite some time. At this time, it is reasonable to continue scheduled bronchodilators, steroids and IV Lasix, as tolerated by hemodynamics and renal function. The patient should be encouraged to utilize her incentive spirometer. Perform walking oximetry study prior to consideration for discharge home. The patient should ideally follow-up in the pulmonary medicine clinic in 2 weeks so that baseline PFTs can be obtained and maintenance bronchodilators initiated. 2. Chronic tobacco dependency The patient smoked until her admission to the hospital. She does have subcentimeter pulmonary nodules on chest imaging, all of which appear to be stable. However, in light of her age and tobacco abuse history, recommend yearly low-dose CT imaging of the chest. 3. Morbid obesity/hypertension/hyperlipidemia Complicates care, management, recovery and prognosis. Continue home medications as indicated. This note was generated with [employer] dictation software. It may contain incorrect words, spelling, and punctuation that were not noted in checking the note before signing. Subjective Subjective The patient was seen and examined at the bedside this morning. Events from the last 24 hours have been reviewed. The patient is currently afebrile, hemodynamically stable and maintaining appropriate oxygen saturations on 5 L/min via nasal cannula. The patient had an uneventful night and has been compliant with the use of her incentive spirometer. Objective Data Objective Data The patient's most recent lab work, culture data and imaging studies have all been personally reviewed. Vital Signs: Vital Signs Temp Pulse Resp BP Pulse Ox O2 Del Method O2 Flow Rate 98.2 F 76 16 150/70 H 93 Nasal Cannula 5 03/24/23 09:05 03/24/23 09:05 03/24/23 09:05 03/24/23 09:05 03/24/23 09:05 03/24/23 09:05 03/24/23 09:05 Oxygen Flow Rate (L/min) [ 10 AMBULATING with Oxygen #3] Oxygen Flow Rate (L/min) [ 7 AMBULATING with Oxygen #2] Oxygen Flow Rate (L/min) [ 5 AMBULATING with Oxygen #1] Oxygen Flow Rate (L/min) [At 5 REST with Oxygen] Oxygen Flow Rate (L/min) 5 Oxygen Delivery Method Nasal Cannula Weight: 239 lb 3.225 oz Body Mass Index (BMI) 41.0 Intake & Output: Intake and Output for Last 24 Hours 03/22/23 03/23/23 03/24/23 23:59 23:59 23:59 Intake Total 1485.49 / 1685.49 669.63 / 669.63 0 / 0 Output Total 1550 / 2050 1400 / 2950 1950 / 1950 Balance -64.51 / -364.51 -730.37 / -2280.37 -1950 / -1950 Lab / Micro Data Attestation: I reviewed the patient's lab results. 03/23/23 04:27 03/23/23 04:27 Labs: Laboratory Results - last 24 hr 03/23/23 11:43: APTT 68.5 H 03/23/23 17:24: APTT 58.8 H Micro: Microbiology 03/19/23 21:10 Mucosa - Nasopharyngeal Respiratory Panel (PCR) - Final 03/19/23 17:15 Nasal Secretion SARS-CoV-2 & FLU Antigen (Rapid) - Final Radiography Diagnostic Testing: Radiology Impression Venous Doppler Study 03/19/23 20:32 Interpretation Summary Deep veins of the bilateral lower extremities are patent and compressible segmentally. There is no evidence of bilateral lower extremity deep vein thrombosis. The bilateral great saphenous veins appear patent and compressible segmentally. Ordering Physician: Jennie Salgado Referring Physician: Justin Bolden Performed By: Jake Saravia, RVT Physical Exam Const alert and no apparent distress Constitutional Narrative: Obese. General Appearance: cooperative HEENT normocephalic and head/scalp atraumatic Eyes PERRL, EOMs intact bilaterally and conjunctivae normal Neck supple General: trachea midline Chest inspection of chest normal Resp normal respiratory effort Auscultation: rales and diminished lung sounds Cardio regular rate and regular rhythm GI normal to inspection, nondistended, normoactive bowel sounds Extremity no clubbing, cyanosis or edema Skin no rashes or lesions noted Neuro CN's II-XII intact bilaterally, moves all extremities and no focal motor deficits Psych cooperative and affect normal Charges/Coding Visit Charges Inpatient E&M: 08999 Subs Hosp L2
[2023-03-24] MEDS: Menthol/Lanolin/Calamine/Znox 113 GM Tube 1 APPLIC TOPICAL ×2 (14:35→21:15)
--- NOTE | 2023-03-24 19:04 | PCM.PN.HOSP ---
Reason for Visit Reason for Visit: Diagnoses Essential (primary) hypertension (03/19/23) Chronic obstructive pulmonary disease, unspecified (03/19/23) Hypoxemia (03/19/23) Tobacco use (03/19/23) Subjective Subjective Patient was seen and examined today, she still remains on 5 L nasal cannula at rest. Patient does not complain of any chest pain or shortness of breath at rest Objective Data Objective Data Vital Signs: Vital Signs Temp Pulse Resp BP Pulse Ox O2 Del Method O2 Flow Rate 97.3 F L 71 16 155/74 H 92 Nasal Cannula 5 03/24/23 14:35 03/24/23 14:35 03/24/23 14:35 03/24/23 14:35 03/24/23 14:35 03/24/23 14:35 03/24/23 14:35 Oxygen Flow Rate (L/min) [ 10 AMBULATING with Oxygen #3] Oxygen Flow Rate (L/min) [ 7 AMBULATING with Oxygen #2] Oxygen Flow Rate (L/min) [ 5 AMBULATING with Oxygen #1] Oxygen Flow Rate (L/min) [At 5 REST with Oxygen] Oxygen Flow Rate (L/min) 5 Oxygen Delivery Method Nasal Cannula Weight: 108.5 kg Body Mass Index (BMI) 41.0 Intake & Output: Intake and Output for Last 24 Hours 03/22/23 03/23/23 03/24/23 23:59 23:59 23:59 Intake Total 1485.49 / 1685.49 669.63 / 669.63 780 / 780 Output Total 1550 / 2050 1400 / 2950 1950 / 1950 Balance -64.51 / -364.51 -730.37 / -2280.37 -1170 / -1170 Lab / Micro Data 03/23/23 04:27 03/23/23 04:27 Micro: Microbiology 03/19/23 21:10 Mucosa - Nasopharyngeal Respiratory Panel (PCR) - Final 03/19/23 17:15 Nasal Secretion SARS-CoV-2 & FLU Antigen (Rapid) - Final Physical Exam Narrative alert, oriented x3 and no apparent distress Constitutional Narrative: Patient is morbidly obese General Appearance: cooperative, well kempt and well developed Orientation / Consciousness: awake, oriented to person, oriented to place and oriented to time HEENT normocephalic, head/scalp atraumatic and moist oral mucous membranes Eyes PERRL, EOMs intact bilaterally and conjunctivae normal Neck supple, no JVD, thyroid normal and no carotid bruits General: trachea midline Resp normal respiratory effort, no retractions and no use of accessory muscles Resp Narrative: Auscultation: Breath sounds are diminished bilaterally, no rhonchi or wheezes are noted Cardio regular rate, regular rhythm, S1 normal heart sound, S2 normal heart sound, no murmurs, no rub and no gallops GI normal to inspection, nondistended, normoactive bowel sounds, soft to palpation, non-tender and non-distended Extremity no clubbing, cyanosis or edema Skin no rashes or lesions noted General Skin Exam: no breakdown Neuro oriented x3, CN's II-XII intact bilaterally, moves all extremities, no focal motor deficits and no sensory deficits noted Sensorium / Orientation: awake, alert, oriented to person, oriented to place and oriented to time Speech: speech normal Psych affect normal Assessment & Plan Assessment/Plan (1) COPD (chronic obstructive pulmonary disease): PLAN: Plan 1. Acute exacerbation of COPD-patient will remain on her present treatment, she will need a walking pulse oximetry tomorrow, patient may be stable for discharge home tomorrow, she will be reevaluated tomorrow morning #2 essential hypertension-patient will remain on her present blood pressure medications #3 acute hypoxic respiratory failure secondary to #1-patient's oxygen will be monitored, she is still on high flow oxygen at rest #4 morbid obesity-complicates care, medical course, recovery, and prognosis #5 coronary artery disease-patient will remain on her present medications, I have decided to change the patient over to oral Lasix and stop her IV Lasix. Total clinical time spent by myself addressing the patient's medical issues, reviewing the data, and collaborating with patient's care team: 35 minutes Charges/Coding Visit Charges Inpatient E&M: 71162 Subs Hosp L2
[2023-03-24] MEDS: Atorvastatin Calcium 20 MG Tablet PO (21:14)
[2023-03-25] VITALS (10 sets, daily range): BP systolic 142–165; BP diastolic 63–69; PULSE 68–84; RESP 16–20; TEMP 36.2–36.7; O2SAT 84–98; BMI 40.1
[2023-03-25] MEDS: Methylprednisolone Sod Succ 40 MG/ML VIAL IV ×2 (05:29→13:45)
[2023-03-25] MEDS: 0.9% Saline Lock 10 ML Syringe IV ×2 (05:29→13:44)
[2023-03-25] MEDS: Menthol/Lanolin/Calamine/Znox 113 GM Tube 1 APPLIC TOPICAL ×2 (05:30→13:44)
[2023-03-25] MEDS: Ipratropium/Albuterol Sulfate 3 ML AMPUL.NEB INHALATION ×2 (07:23→13:05)
[2023-03-25] MEDS: Aspirin E.C. 81 MG Tablet PO (09:48)
[2023-03-25] MEDS: Carvedilol 25 MG Tablet PO (09:48)
[2023-03-25] MEDS: Lisinopril 20 MG Tablet PO (09:48)
[2023-03-25] MEDS: Miconazole Nitrate 43 GM Bottle 1 APPLIC TOPICAL (09:49)
[2023-03-25] MEDS: Furosemide 40 MG Tablet PO (09:52)
--- NOTE | 2023-03-25 14:06 | DCINST_ITS ---
Discharge Instructions Diet Discharge Diet: No restrictions Activity Discharge Activity: Return to Normal Activity Weight Bearing Status: Full weight bearing Follow Up Care Test Results: Test results from this visit will be discussed in further detail at your follow- up appointment, if applicable. Discharge Plan Admission Admit Date/Time: 03/19/23 17:50 Primary Reason for Your Visit: Observation of COPD, respiratory failure Attending Provider: Blaise العلي Primary Care Provider: Justin Bolden Consulting Providers: Jennie Salgado; Farhad Garza; Chirag Rodriguez; Bryce Razo; Donna Brunson; Tramaine Ordaz; Kurt Root; Kena Reynolds [employer]S ATTENDANT Discharge Orders/Prescriptions Prescriptions: New furosemide [Lasix] 40 mg tablet 40 mg PO DAILY Qty: 30 0RF prednisone 20 mg tablet 40 mg PO DAILY Qty: 11 0RF Rx Instructions: 1 twice a day for 3 days, then 1-1/2 daily for 2 days then 1 tablet daily for 2 days and stop Combivent Respimat 20-100 mcg/actuation mist 1 puff inhalation .QID Qty: 4 1RF Continued cholecalciferol (vitamin D3) 2,000 unit capsule 2,000 unit PO DAILY lisinopril 20 MG tablet 20 mg PO BID aspirin 81 MG tablet 81 mg PO DAILY simvastatin 40 MG tablet 40 mg PO QHS albuterol sulfate 1 PUFF inhaler 2 puff INHALATION Q4H PRN (Reason: SHORTNESS OF BREATH/WHEEZING ) imipramine HCl 25 MG tablet 25 - 50 mg PO QHS carvedilol 25 mg tablet 25 mg PO BID Qty: 180 3RF Referrals / Follow Up: Justin Bolden MD [Primary Care Provider] - Bryce Razo DO [Med Staff - Active Staff] - See Referral Note (In 2 weeks, call for an appointment, let them know you were hospitalized) Disposition Disposition (needs filled in before D/C Order can be placed): Home, Self Care
--- NOTE | 2023-03-25 14:36 | PCM.DC.SUM ---
Providers Date of Admission: 03/19/23 Date of Discharge: 03/25/23 Primary Care Physician: Dr. Justin Bolden MD Consultations 03/23/23 10:35 Consult: Front Services Agent / Pulmonary Medicine Routine Consulting Provider: Pulmonary Medicine scott Turcios Reason for Consult: COPD EMERGENT Consult: No Notified: Yes Date Notified: 03/23/23 Time Notified: 10:36 Method of Notification: Verbal Reason For Visit: HYPOXIA Diagnosis Discharge Diagnosis (1) COPD (chronic obstructive pulmonary disease): Status: Chronic Code(s): J44.9 - Chronic obstructive pulmonary disease, unspecified Plan 1. Acute exacerbation of COPD-patient will remain on her present treatment, she will need a walking pulse oximetry tomorrow, patient may be stable for discharge home tomorrow, she will be reevaluated tomorrow morning #2 essential hypertension-patient will remain on her present blood pressure medications #3 acute hypoxic respiratory failure secondary to #1-patient's oxygen will be monitored, she is still on high flow oxygen at rest #4 morbid obesity-complicates care, medical course, recovery, and prognosis #5 coronary artery disease-patient will remain on her present medications, I have decided to change the patient over to oral Lasix and stop her IV Lasix. Total clinical time spent by myself addressing the patient's medical issues, reviewing the data, and collaborating with patient's care team: 35 minutes Medications at Discharge Home Medications albuterol sulfate 90 mcg/actuation aerosol inhaler 2 puff inhalation Q4H PRN SHORTNESS OF BREATH/WHEEZING 10/02/16 aspirin 81 mg tablet,delayed release 81 mg PO DAILY HEART HEALTH 10/02/16 imipramine HCl 25 mg tablet 25 - 50 mg PO QHS BLADDER CONTROL 10/02/16 lisinopril 20 mg tablet 20 mg PO BID BLOOD PRESSURE 10/02/16 simvastatin 40 mg tablet 40 mg PO QHS CHOLESTEROL 10/02/16 cholecalciferol (vitamin D3) 50 mcg (2,000 unit) capsule 2,000 unit PO DAILY SUPPLEMENT 11/24/17 carvedilol 25 mg tablet 25 mg PO BID HEART #180 tabs 09/03/20 furosemide 40 mg tablet (Lasix) 40 mg PO DAILY #30 tabs 03/25/23 ipratropium 20 mcg-albuterol 100 mcg/actuation mist for inhalation (Combivent Respimat) 1 puff inhalation .QID #4 grams 03/25/23 prednisone 20 mg tablet 40 mg (2 x 20 mg) PO DAILY #11 tabs 03/25/23 Hospital Course Operations None Procedures 2-D Echocardiogram Summary of Care Provided Minutes Spent on Discharge: 32 Hospital Course: This 72-year-old white female was seen in the emergency room at [facility] with a chief complaint of shortness of breath. Patient denied any fevers or chills, patient had a known history of COPD and was currently smoking but she had decreased her cigarette intake in the last few days prior to coming into the hospital. Work-up in the emergency room showed the patient's white blood cell count to be normal, hemoglobin was elevated at 17.3, BNP was 56, chest x-ray showed a possible right-sided infiltrate, a noncontrasted CT scan of the chest was performed and this showed bilateral pleural effusions. Patient was admitted for exacerbation of COPD, placed on aerosol treatments, she required supplemental oxygen in the high flow rate, she was placed on corticosteroids, and she was ultimately seen by pulmonary medicine. Patient underwent a diuresis while in the hospital, this improved her oxygenation somewhat. On 03/25/2023, patient was seen and examined:alert, oriented x3 and no apparent distress Constitutional Narrative: Patient is morbidly obese General Appearance: cooperative, well kempt and well developed Orientation / Consciousness: awake, oriented to person, oriented to place and oriented to time HEENT normocephalic, head/scalp atraumatic and moist oral mucous membranes Eyes PERRL, EOMs intact bilaterally and conjunctivae normal Neck supple, no JVD, thyroid normal and no carotid bruits General: trachea midline Resp normal respiratory effort, no retractions and no use of accessory muscles Resp Narrative: Auscultation: Breath sounds are diminished bilaterally, no rhonchi or wheezes are noted Cardio regular rate, regular rhythm, S1 normal heart sound, S2 normal heart sound, no murmurs, no rub and no gallops GI normal to inspection, nondistended, normoactive bowel sounds, soft to palpation, non-tender and non-distended Extremity no clubbing, cyanosis or edema Skin no rashes or lesions noted General Skin Exam: no breakdown Neuro oriented x3, CN's II-XII intact bilaterally, moves all extremities, no focal motor deficits and no sensory deficits noted Sensorium / Orientation: awake, alert, oriented to person, oriented to place and oriented to time Speech: speech normal Psych affect normal Patient required 5 L of oxygen at rest to maintain her pulse ox above 88%, she required 6 L on ambulation, she was expected to wear portable oxygen on activities outside the home and in the home if needed. She was discharged home in stable condition on 03/25/2023. Weight / BMI Weight Weight: 106 kg Body Mass Index (BMI) 40.1 ABG / Lab / Microbiology Data 03/23/23 04:27 03/23/23 04:27 Microbiology: Microbiology 03/19/23 21:10 Mucosa - Nasopharyngeal Respiratory Panel (PCR) - Final 03/19/23 17:15 Nasal Secretion SARS-CoV-2 & FLU Antigen (Rapid) - Final D/C Instructions Discharge Diet: No restrictions Weight Bearing Status: Full weight bearing Meaningful Use Info Meaningful Use Diagnoses (Choose all that apply): None applicable Discharge Plan Admission Admit Date/Time: 03/19/23 17:50 Primary Reason for Your Visit: Observation of COPD, respiratory failure Attending Provider: Blaise العلي Primary Care Provider: Justin Bolden Consulting Providers: Jennie Salgado; Farhad Garza; Chirag Rodriguez; Bryce Razo; Donna Brunson; Tramaine Ordaz; Kurt Root; Kena Ryenolds POUL[employer] VETERINARIAN Instructions Additional Instructions / Restrictions: Use oxygen at 5 L/min with cannula at rest, use oxygen at 6 L/min with cannula during activity Discharge Orders/Prescriptions Prescriptions: New furosemide [Lasix] 40 mg tablet 40 mg PO DAILY Qty: 30 0RF prednisone 20 mg tablet 40 mg PO DAILY Qty: 11 0RF Rx Instructions: 1 twice a day for 3 days, then 1-1/2 daily for 2 days then 1 tablet daily for 2 days and stop Combivent Respimat 20-100 mcg/actuation mist 1 puff inhalation .QID Qty: 4 1RF Continued cholecalciferol (vitamin D3) 2,000 unit capsule 2,000 unit PO DAILY lisinopril 20 MG tablet 20 mg PO BID aspirin 81 MG tablet 81 mg PO DAILY simvastatin 40 MG tablet 40 mg PO QHS albuterol sulfate 1 PUFF inhaler 2 puff INHALATION Q4H PRN (Reason: SHORTNESS OF BREATH/WHEEZING ) imipramine HCl 25 MG tablet 25 - 50 mg PO QHS carvedilol 25 mg tablet 25 mg PO BID Qty: 180 3RF Referrals / Follow Up: Bryce Razo DO [Med Staff - Active Staff] - See Referral Note (In 2 weeks, call for an appointment, let them know you were hospitalized) Justin Bolden MD [Primary Care Provider] - Disposition Disposition (needs filled in before D/C Order can be placed): Home, Self Care Charges/Coding Visit Charges Inpatient E&M: 52931 Disch Hosp >30min
--- NOTE | 2023-03-25 15:30 | CASEMGMT ---
MEDINA LANDIN updated that patient will need oxygen at discharge. Patient prefers [employer]. Script received and referral sent to [employer] via [employer], portable tank arranged to be delivered to patient's room. MEDINA LANDIN in to patient's room to update regarding oxygen. Patient denies further needs at discharge. Patient had no further question or concerns.
--- NOTE | 2023-03-25 15:45 | PCM.HOSP.N ---
Hospitalist Note Patient requires oxygen at rest at 5 L/min via nasal cannula, she requires oxygen at 6 L/min via nasal cannula during activity, she is expected to use oxygen during ADLs at her home and outside her home, she requires portable oxygen in order to carry out activities outside her home. Patient understands she is to use the oxygen as instructed/prescribed.
--- NOTE | 2023-04-03 15:55 | PCM.HOSP.N ---
Hospitalist Note Patient is ambulatory in the home and in the community and requires home oxygen with portability.
== END 2023-03-25 18:11 | disposition home or self-care (01) | DRG 189 ==
LOC: ED 17:29 → PCU 17:38
PROVIDERS: Family Medicine; Admitting Provider Internal Medicine; Emergency Provider Student in an Organized Health Care Education/Training Program; PCP Family Medicine; Visit Provider Internal Medicine
DX: J96.01 Acute respiratory failure with hypoxia (principal); J44.1 Chronic obstructive pulmonary disease with (acute) exacerbation; Z68.43 Body mass index [BMI] 50.0-59.9, adult; J98.11 Atelectasis; J90 Pleural effusion, not elsewhere classified; E27.8 Other specified disorders of adrenal gland; E66.01 Morbid (severe) obesity due to excess calories; I10 Essential (primary) hypertension; I25.10 Atherosclerotic heart disease of native coronary artery without angina pectoris; F17.210 Nicotine dependence, cigarettes, uncomplicated; E78.5 Hyperlipidemia, unspecified; I16.0 Hypertensive urgency; F40.240 Claustrophobia; Z79.82 Long term (current) use of aspirin; Z79.899 Other long term (current) drug therapy
CPT/HCPCS: 36415; 71045; 71250; 71275; 80048; 81001; 82803; 83880; 84443; 84484; 85025; 85379; 85730; 87428; 87633; 93005; 93306; 93970; 94640; 94668; 99252; 99285; Q9957; Q9967; A4216; C8929; G0463; J1940

== ENCOUNTER → 2023-05-06 | Outpatient (CLI) | payer MEDICARE, OTHER, SELFPAY ==
--- NOTE | 2023-05-07 09:20 | PFT ---
INTRODUCTION: The patient is a 72-year-old female who presents for pulmonary function studies secondary to a diagnosis of COPD. Respiratory therapy reported good patient effort. Bronchodilators were used during testing. INTERPRETATION: Forced expiration spirometry demonstrates the presence of a very severe large airways obstructive ventilatory defect. There was no significant response to aerosolized bronchodilators. Body plethysmography was performed and revealed an elevated RV to 210% of predicted, indicative of underlying air trapping. Diffusing capacity by single breath CO was reduced to 55% of predicted. IMPRESSION: Irreversible very severe large airways obstructive ventilatory defect with associated air trapping.
== END | disposition home or self-care (01) ==
LOC: PSN 12:50
PROVIDERS: PCP Family Medicine; Referring Provider Nurse Practitioner Acute Care; Visit Provider Nurse Practitioner Acute Care
DX: J44.9 Chronic obstructive pulmonary disease, unspecified (principal)
CPT/HCPCS: 94060; 94726; 94729

== ENCOUNTER → 2023-05-11 | Outpatient (CLI) | payer MEDICARE, OTHER, SELFPAY ==
[2023-05-11 12:30] VITALS: PULSE 63; PULSE 66; PULSE 72; PULSE 76; O2SAT 88; O2SAT 92; O2SAT 93; O2SAT 96
--- NOTE | 2023-05-11 14:47 | CPS ---
Patient wears oxygen at home at 4 lpm. Patient came in on 4 lpm pulse dose, SpO2 88%. Placed patient on 4 lpm continuous oxygen, SpO2 never increased higher than 89%. Increased O2 to 6 lpm, SpO2 96%. Patient walked for 3 minutes on the 6 lpm and stated that she was done. She said that is more walking than she normally does at one time at home.
--- NOTE | 2023-05-15 07:19 | WT_ITS ---
PSN 6 Minute Walk Test 6 Minute Walk Test 6 Minute Walk Test: 6 Minute Walk Test PSN:6-Minute Walk Test Start: 05/11/23 13:41 Freq: Status: Discharge Protocol: [id number] Document 05/11/23 12:30 JR (Rec: 05/11/23 13:43 JR [id number]) 6 Minute Walk Test Date Performed 05/11/23 Time Performed 12:30 Height 5 ft 4 in Weight: 108.862 kg Weight in Pounds 240.[address]: Kena Reynolds RN [facility] Assistive device used: Walker Pre-test Oxygen Flow Rate (L/min) 4 Oxygen Delivery Method Nasal Cannula Pulse Ox 88 Pulse Rate (60-100) 66 Dyspnea Meño Scale (0-10) 0 Exertion Meño Scale (6-20) 6 1st minute Oxygen Flow Rate (L/min) 6 Oxygen Delivery Method Nasal Cannula Pulse Ox 92 Pulse Rate (60-100) 72 2nd minute Oxygen Flow Rate (L/min) 6 Oxygen Delivery Method Nasal Cannula Pulse Ox 92 Pulse Rate (60-100) 66 3rd minute Oxygen Flow Rate (L/min) 6 Oxygen Delivery Method Nasal Cannula Pulse Ox 93 Pulse Rate (60-100) 63 Post-test Oxygen Delivery Method Nasal Cannula Pulse Ox 96 Pulse Rate (60-100) 76 Dyspnea Meño Scale (0-10) 2 Exertion Meño Scale (6-20) 13 Full Laps Walked 3 Partial Lap, Number of Tiles Walked 0 Total Distance Walked (ft) 177 05/11/23 14:47 Cardiopulmonary Services by Nila Oviedo Patient wears oxygen at home at 4 lpm. Patient came in on 4 lpm pulse dose, SpO2 88%. Placed patient on 4 lpm continuous oxygen, SpO2 never increased higher than 89%. Increased O2 to 6 lpm, SpO2 96%. Patient walked for 3 minutes on the 6 lpm and stated that she was done. She said that is more walking than she normally does at one time at home. Initialized on 05/11/23 14:47 - END OF NOTE Interpretation Interpretation: Patient reportedly is on 4 L pulsed dose of baseline, but arrived with a saturation of 88%. Patient was switched to 4 L continuous flow and saturations improved only to 89%. Patient was then placed to 6 L/min continuous flow with a saturation of 96%. Patient was able to ambulate 3 minutes with the assistance of a walker and travel to 177 feet. Saturations were controlled and there was no significant tachycardia during testing. These findings are consistent with a respiratory limitation exercise tolerance. Recommendations Recommendations: The patient should be on 6 L continuous flow at all times at a minimum. If exercise tolerance improves, testing may need to be reevaluated.
== END | disposition home or self-care (01) ==
LOC: PSN 12:12
PROVIDERS: PCP Family Medicine; Referring Provider Nurse Practitioner Acute Care; Visit Provider Nurse Practitioner Acute Care
DX: J44.9 Chronic obstructive pulmonary disease, unspecified (principal)
CPT/HCPCS: 94618

== ENCOUNTER → 2023-05-19 | Outpatient (CLI) | payer MEDICARE, OTHER, SELFPAY | END | disposition home or self-care (01) | LOC: SL 20:09 | PROVIDERS: PCP Family Medicine; Referring Provider Nurse Practitioner Acute Care; Visit Provider Nurse Practitioner Acute Care | DX: G47.30 Sleep apnea, unspecified (principal) | CPT/HCPCS: 95810 ==

== ENCOUNTER → 2023-09-03 | Outpatient (CLI) | payer MEDICARE, OTHER, SELFPAY ==
[2023-09-03 11:28] LABS: Anion Gap 2 (5-15); BUN 11 mg/dL (7-18); BUN/Creat Ratio 10.3 RATIO (10-20); Calcium,Total 8.6 mg/dL (8.5-10.1); Chloride 104 mmol/L (98-107); Creatinine, Serum 1.07 mg/dL (0.55-1.02); EST Glomerular Filtration Rate 53 mL/min (>60); Est Glom Filt Rate - Afr Amer 65 mL/min (>60); Glucose 222 mg/dL (74-106); Potassium 3.8 mmol/L (3.5-5.1); Sodium Level 138 mmol/L (136-145)
== END | disposition home or self-care (01) ==
LOC: PAVLAB 10:42
PROVIDERS: PCP Family Medicine; Referring Provider Nurse Practitioner Gerontology; Visit Provider Nurse Practitioner Gerontology
DX: I10 Essential (primary) hypertension (principal)
CPT/HCPCS: 36415; 80048

== ENCOUNTER 2023-10-12 02:58 | Observation (INO) | payer MEDICARE, OTHER, SELFPAY ==
[2023-10-12] VITALS (24 sets, daily range): BP systolic 104–193; BP diastolic 54–90; PULSE 69–83; RESP 16–21; TEMP 36.2–36.9; O2SAT 85–99; BMI 43.0; BMI 50.3
--- NOTE | 2023-10-12 03:10 | CT_ITS ---
INDICATION: fall, vertigo EXAMINATION: CT BRAIN - CT Head or Brain W/O Contrast Injection TECHNIQUE: Multiple axial images were obtained of the head without intravenous contrast. A radiation dose optimization technique was used for this scan. IV Contrast dosage and agent: None. RADIATION DOSAGE (If Supplied By Facility): CTDIvol = ( 44.99 ) mGy, DLP = ( 796.11 ) mGycm COMPARISON: No relevant prior comparison study available FINDINGS: BRAIN PARENCHYMA: No intra- or extra-axial hemorrhage. No evidence of acute infarct. No intracranial mass or mass effect. There is preservation of the dolan/white matter interface. Posterior fossa structures are unremarkable. No parenchymal abnormality. CSF SPACES: No cerebral volume loss. No hydrocephalus. Basal cisterns are patent. CALVARIUM, SKULL BASE, PARANASAL SINUSES AND MASTOID AIR CELLS: Regional soft tissues and scalp unremarkable. Calvarium and skull base are intact. Paranasal sinuses are clear. Mastoid air cells are clear. No discrete lytic or blastic abnormalities. ORBITS: Both globes, extraocular muscles, optic nerves and retrobulbar fat appear unremarkable. CT/Brain/Head without Contrast IMPRESSION: No acute intracranial finding. Electronically Signed: Mark Mcdowell MD at 3:47 EDT Reading Location ID and State: [facility] / [place] Tel , Service support ,
--- NOTE | 2023-10-12 03:12 | ED.VIS.FALL ---
HPI HPI - Fall History of Present Illness Chief Complaint: Fall Informant: patient and EMS Narrative Narrative: Patient presents around 3 hours after her last fall. She states she has had several falls in the last 3 days due to feeling dizzy whenever she gets up. This has been going on intermittently for several weeks but seems to be worse in the last few days. She states it feels like a sensation of movement not necessarily presyncope, although she admittedly does not drink a lot of water she states that is no different than usual. She has had no fevers or recent illness. She has COPD and is on home oxygen, she no longer smokes although she used to. She denies having headaches, tinnitus, earache. She has some scrapes on her right arm and her right knee, she states that is not from the falls but from trying to get up and crawling on the carpet to get to a phone. She was not able to get up tonight hence EMS bringing her here, she states her legs are extremely weak. She denies any injury from the falls, saying that she loses her balance and falls backward, and her back is not really bothering her right now. She denies hitting her head that she knows of. Her legs have been swollen for about the past 6 or 8 months, she states they are probably a little worse recently. She also states that in the past couple weeks she started bupropion is the only medication change/new medicine, to help curb her appetite. [facility] Medical History (Updated 10/12/23 @ 06:28 by Kym Talavera) Atherosclerotic heart disease of [place] coronary artery without angina pectoris Bronchitis Chronic hypoxic respiratory failure, on home oxygen therapy CKD (chronic kidney disease), stage III COPD (chronic obstructive pulmonary disease) Essential (primary) hypertension Hyperlipidemia LBBB (left bundle branch block) Morbid obesity Nicotine abuse Nonischemic cardiomyopathy Sleep apnea Home Medications albuterol sulfate 90 mcg/actuation aerosol inhaler 2 puff inhalation Q4H PRN SHORTNESS OF BREATH/WHEEZING 10/02/16 [History Last Taken Unknown] aspirin 81 mg tablet,delayed release 81 mg PO DAILY HEART HEALTH 10/02/16 [History Last Taken 03/18/23] imipramine HCl 25 mg tablet 25 - 50 mg PO QHS BLADDER CONTROL 10/02/16 [History Last Taken 03/18/23] simvastatin 40 mg tablet 40 mg PO QHS CHOLESTEROL 10/02/16 [History Last Taken 03/18/23] cholecalciferol (vitamin D3) 50 mcg (2,000 unit) capsule 2,000 unit PO DAILY SUPPLEMENT 11/24/17 [History Last Taken 03/18/23] ipratropium 0.5 mg-albuterol 3 mg (2.5 mg base)/3 mL nebulization soln 3 ml inhalation Q6H #180 mL 09/03/23 [Rx Last Taken Unknown] Nebulizer machine #1 ea 09/15/23 [Rx Last Taken Unknown] bupropion HCl 300 mg 24 hr tablet, extended release 300 mg PO DAILY 10/12/23 [History Last Taken Unknown] carvedilol 25 mg tablet 25 mg PO Q12H HEART 10/12/23 [History Last Taken Unknown] lisinopril 40 mg tablet 40 mg PO DAILY 10/12/23 [History Last Taken Unknown] Allergy/AdvReac Type Severity Reaction Status Date / Time Iodinated Contrast Media Allergy Other Verified 10/12/23 06:24 [CONTRASTS] meperidine [From Demerol] Allergy Unknown Verified 10/12/23 06:24 Penicillins [PCN] Allergy Rash Verified 10/12/23 06:24 Family History Mother Hypertension Diabetes Father Cancer Surgical History History of appendectomy History of cataract surgery History of cholecystectomy History of colonoscopy with polypectomy History of left heart catheterization (09/03/11) History of total hip arthroplasty Social History household members: none Smoking Status: Former smoker quit date: 04/04/23 alcohol intake: current substance use type: does not use ROS ROS ED Constitutional Constitutional ED: Reports weakness; Denies chills or fever(s) Eyes Eyes: Denies change in vision or diplopia ENT ENT ED: Denies ear pain, epistaxis, facial pain, rhinorrhea or tinnitus Cardiovascular Cardiovascular: Reports leg edema; Denies chest pain, palpitations or syncope Respiratory/Chest Respiratory/Chest: Reports cough and other Details: Chronic cough no worse than usual ; Denies dyspnea Gastrointestinal Gastrointestinal: Denies abdominal pain, diarrhea, melena, nausea or vomiting Genitourinary Genitourinary ED: Denies dysuria or hematuria Musculoskeletal Musculoskeletal: Denies back pain, extremity pain or neck pain Integumentary Reports Abrasions; Denies abscess, laceration or rash Neurologic Neurologic: Reports as per HPI, disequilibrium, dizziness and frequent falls; Denies abnormal speech, confusion, focal weakness, headache(s), paresthesias or weakness Psychiatric Psychiatric: Denies suicidal ideation or suicidal thoughts EXAM Physical Exam Const Vital Signs: 10/12/23 02:59 10/12/23 03:06 10/12/23 03:36 Temperature 98.5 F Temperature Source Temporal Pulse Rate 74 Pulse Rate [Lying] Pulse Rate [Sitting (for 1 minute prior to obtaining)] Pulse Rate [Standing (for 1 minute prior to obtaining)] Respiratory Rate 20 H Respiratory Effort Respiratory Depth Respiratory Pattern Blood Pressure 142/54 H Blood Pressure [Lying] Blood Pressure [Sitting (for 1 minute prior to obtaining)] Blood Pressure [Standing (for 1 minute prior to obtaining)] Blood Pressure Mean 83 Blood Pressure Mean [Lying] Blood Pressure Mean [Sitting (for 1 minute prior to obtaining)] Blood Pressure Mean [Standing (for 1 minute prior to obtaining)] Pulse Ox 85 93 96 Oxygen Delivery Method Room Air Nasal Cannula Nasal Cannula Oxygen Flow Rate (L/min) 3 3 10/12/23 04:00 10/12/23 05:01 10/12/23 05:00 Temperature Temperature Source Pulse Rate 83 Pulse Rate [Lying] 77 Pulse Rate [Sitting (for 1 minute prior to obtaining)] 82 Pulse Rate [Standing (for 1 minute prior to obtaining)] 74 Respiratory Rate 21 H Respiratory Effort Normal Non-Labored Respiratory Depth Normal Respiratory Pattern Normal Blood Pressure 133/90 H Blood Pressure [Lying] 142/65 H Blood Pressure [Sitting (for 1 minute prior to obtaining)] 160/71 H Blood Pressure [Standing (for 1 minute prior to obtaining)] 141/64 H Blood Pressure Mean 104 Blood Pressure Mean [Lying] 90 Blood Pressure Mean [Sitting (for 1 minute prior to obtaining)] 100 Blood Pressure Mean [Standing (for 1 minute prior to obtaining)] 89 Pulse Ox 94 Oxygen Delivery Method Room Air Nasal Cannula Oxygen Flow Rate (L/min) Positive well nourished, well developed and obese General Appearance ED: well developed and NAD Nutritional Appearance: obese HEENT Reports TM's clear and nasal mucous membranes and turbinates normal HEENT Narrative: Small contusion left mid forehead, nontender, appears old no crepitance or depression or other signs of acute trauma. No Castaneda sign. No periorbital ecchymosis. No CSF otorhinorrhea. No hemotympanum. atraumatic Face and Sinus: Negative for facial tenderness Tympanic Membrane ED: Yes TM's clear Eyes PERRL and EOMs intact bilaterally Visual Acuity: other Other Details: no entrapment or pain with extraocular movements Neck full ROM and supple General: Negative for tenderness Chest Wall inspection of chest normal and palpation of chest normal Chest: symmetrical chest wall rise; Negative for crepitus or tenderness Resp normal respiratory effort and no retractions Resp Narrative: Diffuse end expiratory wheezing and diffusely diminished but symmetrically, trachea midline no respiratory distress Cardio no murmurs Rate: regular rate Rhythm: regular rhythm GI normal to inspection, nondistended, normoactive bowel sounds, soft to palpation and non-tender Back/Spine normal ROM Cervical Spine: Negative for cervical spine tenderness Thoracic Spine / Upper Back: Negative for thoracic spinal tenderness Lumbar Spine / Lower Back: Negative for lumbar spinal tenderness Extremity normal to inspection and full ROM Extremity Narrative: Abrasion right anterior knee without bony tenderness or limited range of motion, abrasions ulnar aspect of the right proximal forearm and the elbow without bony tenderness or limited range of motion. General Extremety ED: Negative for tenderness Neuro oriented x3, CN's II-XII intact bilaterally, moves all extremities, no focal motor deficits and no sensory deficits noted [place] Coma Scale: document GCS findings Spontaneous Obeys Commands Oriented 15 Sensorium / Orientation: awake and alert Motor Exam: general weakness Psych mental status grossly normal and thought process normal Skin no wounds Lesions: no lesions Rashes: no rashes MDM MDM MDM Narrative Medical decision making narrative: Orthostatics performed and are negative. My concern is that the patient is having some form of vertigo, that seems more consistent with peripheral vertigo since it is intermittent and triggered with position changes, but she is having disequilibrium that seems to be making her fall. She does not clinically seem to have a significant injury from any of these falls. We cleansed her abrasions and dressing with bacitracin. She has a leukocytosis on her screening labs, the etiology of this is unknown. She has no urinary symptoms, but has not provided urine yet because she does not have to go yet. Her blood counts are otherwise unremarkable. Labs do not indicate dehydration, she has mild hyperglycemia, chest x-ray 1 view on my interpretation negative for pneumonia, and she does not have symptoms of worsening respiratory status or URI/LRI symptoms lately, feels at her baseline there. I obtained a CT of the head given her recent falls and the vertigo, I reviewed the images and the report which I agree with, negative for nothing acute. She does not feel dizzy right now, but she feels like her legs are so weak that she cannot safely go home. Will discuss with hospitalist for inpatient observation and further evaluation. Lab Data Attestation: I reviewed the patient's lab results. Labs: Laboratory Results - last 24 hr 10/12/23 10/12/23 10/12/23 03:20 03:20 03:50 WBC Cancelled 18.1 H Corrected WBC Cancelled RBC Cancelled 3.73 L Hgb Cancelled 12.6 Hct Cancelled 37.9 MCV Cancelled 101.6 H MCH Cancelled 33.8 H MCHC Cancelled 33.2 RDW Std Deviation Cancelled 46.0 H RDW Coeff of [place] Cancelled 12.3 Plt Count Cancelled 159 MPV Cancelled 11.4 Immature Gran % (Auto) Cancelled 0.400 Neut % (Auto) Cancelled 83.0 H Lymph % (Auto) Cancelled 7.9 L Kle[place] % (Auto) Cancelled 7.9 Eos % (Auto) Cancelled 0.4 Baso % (Auto) Cancelled 0.4 Absolute Neuts (auto) Cancelled 15.0 H Absolute Lymphs (auto) Cancelled 1.44 Total Counted Cancelled Neutrophils % (Manual) Cancelled Band Neutrophils % Cancelled Lymphocytes % (Manual) Cancelled Monocytes % (Manual) Cancelled Eosinophils % (Manual) Cancelled Basophils % (Manual) Cancelled Metamyelocytes % Cancelled Myelocytes % Cancelled Promyelocytes % Cancelled Blast Cells % Cancelled Plasma Cell % (Manual) Cancelled Other Cells % Cancelled Nucleated RBC % Cancelled 0 Nucleated RBCs/100 WBC Cancelled Differential Comment Cancelled Diff Path Review Cancelled Hypersegmented Neuts Cancelled Atypical Lymphocytes Cancelled Reactive Lymphocytes Cancelled Smudge Cells Cancelled Toxic Granulation Cancelled Toxic Vacuolation Cancelled Dohle Bodies Cancelled [place] Rods Cancelled Platelet Estimate Cancelled Plt Morphology Comment Cancelled RBC Morphology Cancelled Cancelled Polychromasia Cancelled Hypochromasia Cancelled Basophilic Stippling Cancelled Anisocytosis Cancelled Microcytosis Cancelled Macrocytosis Cancelled Spherocytes Cancelled Sickle Cells Cancelled Target Cells Cancelled Tear Drop Cells Cancelled Ovalocytes Cancelled Stomatocytes Cancelled [place] Bodies Cancelled [place] Cells Cancelled Bite Cells Cancelled Crenated Cell Cancelled Acanthocytes (Spur) Cancelled Rouleaux Cancelled Schistocytes Cancelled Sodium 138 Potassium 3.9 Chloride 104 Carbon Dioxide 29.0 Anion Gap 5 BUN 16 Creatinine 1.14 H Estim Creat Clear Calc 54.33 Est GFR (MDRD) Af Amer 60 Est GFR (MDRD) Non-Af 50 L BUN/Creatinine Ratio 14.0 Glucose 247 H Calcium 8.4 L Magnesium 1.6 Troponin I High Sens 10 Radiography Diagnostic Testing: Clinical Impression(s) from Imaging Studies Brain CT 10/12/23 03:10 IMPRESSION: No acute intracranial finding. Electronically Signed: Mark Mcdowell MD at 3:47 EDT , Chest X-Ray 10/12/23 03:30 IMPRESSION: No acute pulmonary finding. Electronically Signed: Mark Mcdowell MD at 3:45 EDT , Rhythm Strip Rhythm Strip: Sinus Rhythm Rate: 75 Ectopy: None Management Discussion w/another healthcare provider: Hospitalist Discharge Plan Dx/Rx/DC Orders Clinical Impression: Generalized weakness, Multiple falls, Disequilibrium, Abrasion, multiple sites Disposition Disposition: Acute Care Hospital [facility] Discharge Date/Time: 10/12/23 06:01
--- NOTE | 2023-10-12 03:30 | RAD_ITS ---
INDICATION: sob EXAMINATION/TECHNIQUE: X-RAY - XR Chest 1 View COMPARISON: No relevant prior comparison study available FINDINGS: LINES/DEVICES: None. LUNGS: The lungs are well expanded. No consolidation, edema or effusion. No pneumothorax. MEDIASTINUM AND CARDIOVASCULAR STRUCTURES: Cardiac silhouette not enlarged. Central airways and mediastinal contour are unremarkable. BONES AND SOFT TISSUES: No acute osseous abnormalities. RAD/Chest 1 View (Portable) IMPRESSION: No acute pulmonary finding. Electronically Signed: Mark Mcdowell MD at 3:45 EDT ,
[2023-10-12 03:46] LABS: Anion Gap 5 (5-15); BUN 16 mg/dL (7-18); Calcium,Total 8.4 mg/dL (8.5-10.1); Chloride 104 mmol/L (98-107); Creatinine, Serum 1.14 mg/dL (0.55-1.02); EST Glomerular Filtration Rate 50 mL/min (>60); Est Glom Filt Rate - Afr Amer 60 mL/min (>60); Estimated Creatinine Clearance 54.33 ml/min; Glucose 247 mg/dL (74-106); Potassium 3.9 mmol/L (3.5-5.1); Sodium Level 138 mmol/L (136-145)
[2023-10-12 03:57] LABS: Absolute Lymphocyte Count 1.44 X10^3/uL (0.83-4.51); Basophil# 0.07 X10^3/uL; Basophil% 0.4 % (0-1); Eosinophil# 0.08 X10^3/uL; Eosinophils% 0.4 % (0-5); Hematocrit 37.9 % (37-47); Hemoglobin 12.6 g/dL (12.0-15.0); Lymphocyte # 1.44 X10^3/ul (0.83-4.51); Lymphocyte % 7.9 % (19-41); Mean Corp Hgb Conc 33.2 g/dL (32-36); Mean Corpuscular Hgb 33.8 pg (27.0-32.0); Mean Corpuscular Volume 101.6 fL (81-99); Mean Platelet Vol. 11.4 fl (6.2-12.0); Monocyte# 1.44 X10^3/uL; Monocyte% 7.9 % (0-10); NRBC Flagged by Analyzer 0 % (0-5); Neutrophil # 15.03 X10^3/uL (2.7-7.7); Platelet Count 159 K/mm3 (150-450); RBC Distribution Width CV 12.3 % (11.6-14.6); Red Blood Count 3.73 M/mm3 (4.2-5.4); White Blood Count 18.1 K/mm3 (4.4-11.0)
--- NOTE | 2023-10-12 05:22 | PCM.HP.STD ---
HPI - General General Date of Admission: 10/12/23 Date of Service: 10/12/23 Chief Complaint: LH, Dizziness, Falls. HPI Narrative The patient is a 73 y/o F w/ PMHx: JONO using oxygen qHS only, CKD possible stage III unclear subtype, Morbid Obesity, HTN, HLD, Chronic COPD w/ Chronic Hypoxic Respiratory Failure (2-3L NC), Former tobacco use, Nonobstructive CAD/Nonischemic cardiomyopathy who presents to the [facility] ED on 10/12/23 with history of 3 days of progressively worsening fatigue, malaise, dizziness and frequent falls with no recent fevers or chills reporting that she has been losing her balance and occasionally falling backwards with no head trauma or loss of consciousness with mildly increased lower extremity swelling above her baseline and reports that she recently started new medications including bupropion to assist in decreasing her appetite but unfortunately upon evening prior to ED presentation following a fall she could not get up prompting EMS call and transition to the ED given severe debility. Patient has difficulty describing the symptoms prior to falls but denies any specific overt room spinning sensation. From discussion it does seem may be to be more consistent with lightheadedness and dizziness and gait instability. Workup in the ED included T98.5, heart 74, BP 142/54, respiratory rate 20, 85% on room air with improvement to 96 on 3 L nasal cannula, CBC with WBC 18.1, hemoglobin 12.6, MCV 101.6, platelet 159 with left shift, BMP with BUN/creatinine 16/1.14, GFR 50, glucose 247, EKG was sinus rhythm with no acute evidence of ischemia, CT of the brain with no acute intracranial finding, chest x-ray with no acute cardiopulmonary finding, urinalysis requested and pending upon requested evaluation of patient. [facility] Medical History Atherosclerotic heart disease of [place] coronary artery without angina pectoris Bronchitis Chronic hypoxic respiratory failure, on home oxygen therapy CKD (chronic kidney disease), stage III COPD (chronic obstructive pulmonary disease) Diabetes Essential (primary) hypertension Hyperlipidemia LBBB (left bundle branch block) Morbid obesity Nicotine abuse Nonischemic cardiomyopathy Sleep apnea Home Medications albuterol sulfate 90 mcg/actuation aerosol inhaler 2 puff inhalation Q4H PRN SHORTNESS OF BREATH/WHEEZING 03/30/17 [History Last Taken Unknown] aspirin 81 mg tablet,delayed release 81 mg PO DAILY HEART HEALTH 10/02/16 [History Last Taken 03/18/23] imipramine HCl 25 mg tablet 25 - 50 mg PO QHS BLADDER CONTROL 10/02/16 [History Last Taken 03/18/23] simvastatin 40 mg tablet 40 mg PO QHS CHOLESTEROL 10/02/16 [History Last Taken 03/18/23] cholecalciferol (vitamin D3) 50 mcg (2,000 unit) capsule 2,000 unit PO DAILY SUPPLEMENT 11/24/17 [History Last Taken 03/18/23] carvedilol 25 mg tablet 25 mg PO BID HEART #180 tabs 09/03/20 [Rx Last Taken 03/18/23] lisinopril 40 mg tablet 40 mg PO BID #180 tabs 08/31/23 [Rx Last Taken Unknown] ipratropium 0.5 mg-albuterol 3 mg (2.5 mg base)/3 mL nebulization soln 3 ml inhalation Q6H #180 mL 09/03/23 [Rx Last Taken Unknown] Nebulizer machine #1 ea 09/15/23 [Rx Last Taken Unknown] Allergy/AdvReac Type Severity Reaction Status Date / Time Iodinated Contrast Media Allergy Other Verified 09/03/23 10:09 [CONTRASTS] meperidine [From Demerol] Allergy Unknown Verified 09/03/23 10:09 Penicillins [PCN] Allergy Rash Verified 09/03/23 10:09 Family History Mother Hypertension Diabetes Father Cancer Surgical History History of appendectomy History of cataract surgery History of cholecystectomy History of colonoscopy with polypectomy History of left heart catheterization (09/03/11) History of total hip arthroplasty Social History household members: none Smoking Status: Former smoker quit date: 04/04/23 alcohol intake: current substance use type: does not use ROS ROS Narrative Admission Review of Systems: CONSTITUTIONAL: No weight loss, fever, chills, + weakness or fatigue. HEENT: + Lightheadedness, dizziness. Eyes: No visual loss, blurred vision, double vision or yellow sclerae. Ears, Nose, Throat: No hearing loss, sneezing, congestion, runny nose or sore throat. SKIN: No rash or itching, lesions, wounds. CARDIOVASCULAR: + Lightheadedness, dizziness, near syncopal type sensation, chronic edema. No chest pain, chest pressure or chest discomfort, palpitations, orthopnea. RESPIRATORY: + Chronic dyspnea primarily with exertion. No marked cough, increased sputum, wheezing or hemoptysis. GASTROINTESTINAL: No anorexia, nausea, vomiting or diarrhea, abdominal pain, melena, BRBPR. GENITOURINARY: No dysuria, frequency, urgency or retention. NEUROLOGICAL: + Lightheadedness, dizziness, falls, near-syncope type sensation. No headache, paralysis, ataxia, numbness or tingling in the extremities, focal weakness, change in bowel or bladder control, seizure. MUSCULOSKELETAL: + muscle, back pain, joint pain or stiffness. HEMATOLOGIC: No anemia, bleeding or bruising. LYMPHATICS: No enlarged nodes. No history of splenectomy. PSYCHIATRIC: No history of depression or anxiety. ENDOCRINOLOGIC: No reports of sweating, cold or heat intolerance. No polyuria or polydipsia. ALLERGIES: No history of asthma, hives, eczema or rhinitis. Vital Signs Vital Signs Vital Signs: 10/12/23 02:59 10/12/23 03:06 10/12/23 03:36 Temperature 98.5 F Temperature Source Temporal Pulse Rate 74 Pulse Rate [Lying] Pulse Rate [Sitting (for 1 minute prior to obtaining)] Pulse Rate [Standing (for 1 minute prior to obtaining)] Respiratory Rate 20 H Respiratory Effort Respiratory Depth Respiratory Pattern Blood Pressure 142/54 H Blood Pressure [Lying] Blood Pressure [Sitting (for 1 minute prior to obtaining)] Blood Pressure [Standing (for 1 minute prior to obtaining)] Blood Pressure Mean 83 Blood Pressure Mean [Lying] Blood Pressure Mean [Sitting (for 1 minute prior to obtaining)] Blood Pressure Mean [Standing (for 1 minute prior to obtaining)] Pulse Ox 85 93 96 Oxygen Delivery Method Room Air Nasal Cannula Nasal Cannula Oxygen Flow Rate (L/min) 3 3 10/12/23 04:00 10/12/23 05:01 10/12/23 05:00 Temperature Temperature Source Pulse Rate 83 Pulse Rate [Lying] 77 Pulse Rate [Sitting (for 1 minute prior to obtaining)] 82 Pulse Rate [Standing (for 1 minute prior to obtaining)] 74 Respiratory Rate 21 H Respiratory Effort Normal Non-Labored Respiratory Depth Normal Respiratory Pattern Normal Blood Pressure 133/90 H Blood Pressure [Lying] 142/65 H Blood Pressure [Sitting (for 1 minute prior to obtaining)] 160/71 H Blood Pressure [Standing (for 1 minute prior to obtaining)] 141/64 H Blood Pressure Mean 104 Blood Pressure Mean [Lying] 90 Blood Pressure Mean [Sitting (for 1 minute prior to obtaining)] 100 Blood Pressure Mean [Standing (for 1 minute prior to obtaining)] 89 Pulse Ox 94 Oxygen Delivery Method Room Air Nasal Cannula Oxygen Flow Rate (L/min) Weight Weight: 250 lb 11.2 oz Body Mass Index (BMI) 43.0 Physical Exam Narrative Physical Examination: General: Awake, alert, oriented x 3 and cooperative, seated upright in the ED bed, fatigued, no acute distress. Skin: Normal color, normal turgor, no icterus, no cyanosis except occasional staged abrasion, scratches, bilateral lower extremity venous stasis skin changes. HEENT: AT/NC, EOMI, PERRLA, dry MM, no carotid bruits or JVD noted; however, very thickened neck makes evaluation difficult. Lungs: Diminished, distant, mildly increased respiratory rate but no distress, pursed lip breathing which she notes is chronic, no rales, ronchi or wheezing. Heart: Regular rate and rhythm; no gallop, rub audible. Abdomen: Soft, morbidly obese, NTTP, distant BS, difficult to discern distention and HSM given habitus. Extremities: No cyanosis, no clubbing, mild peripheral nonpitting edema distally in the bilateral lower extremity, see skin. Neurological: Patient awake, alert, oriented as noted, cognitive function intact; pupils equally reactive to light and accommodation, cranial nerves grossly normal, moving all 4 extremities, no focal deficits, strength moderately to severely global decreased. Psychiatric: Affect appears flat, fatigued, no acute evidence of depressive or anxiety feelings. Results Lab / Micro Data 10/12/23 03:50 10/12/23 03:20 Labs: Laboratory Results - last 24 hr 10/12/23 03:20: WBC Cancelled, Corrected WBC Cancelled, RBC Cancelled, Hgb Cancelled, Hct Cancelled, MCV Cancelled, MCH Cancelled, MCHC Cancelled, RDW Std Deviation Cancelled, RDW Coeff of [place] Cancelled, Plt Count Cancelled, MPV Cancelled, Immature Gran % (Auto) Cancelled, Neut % (Auto) Cancelled, Lymph % (Auto) Cancelled, [place] % (Auto) Cancelled, Eos % (Auto) Cancelled, Baso % (Auto) Cancelled, Absolute Neuts (auto) Cancelled, Absolute Lymphs (auto) Cancelled, Total Counted Cancelled, Neutrophils % (Manual) Cancelled, Band Neutrophils % Cancelled, Lymphocytes % (Manual) Cancelled, Monocytes % (Manual) Cancelled, Eosinophils % (Manual) Cancelled, Basophils % (Manual) Cancelled, Metamyelocytes % Cancelled, Myelocytes % Cancelled, Promyelocytes % Cancelled, Blast Cells % Cancelled, Plasma Cell % (Manual) Cancelled, Other Cells % Cancelled, Nucleated RBC % Cancelled, Nucleated RBCs/100 WBC Cancelled, Differential Comment Cancelled, Diff Path Review Cancelled, Hypersegmented Neuts Cancelled, Atypical Lymphocytes Cancelled, Reactive Lymphocytes Cancelled, Smudge Cells Cancelled, Toxic Granulation Cancelled, Toxic Vacuolation Cancelled, Dohle Bodies Cancelled, Meggan Rods Cancelled, Platelet Estimate Cancelled, Plt Morphology Comment Cancelled, RBC Morphology Cancelled 10/12/23 03:20: RBC Morphology Cancelled, Polychromasia Cancelled, Hypochromasia Cancelled, Basophilic Stippling Cancelled, Anisocytosis Cancelled, Microcytosis Cancelled, Macrocytosis Cancelled, Spherocytes Cancelled, Sickle Cells Cancelled, Target Cells Cancelled, Tear Drop Cells Cancelled, Ovalocytes Cancelled, Stomatocytes Cancelled, [place] Bodies Cancelled, [place] Cells Cancelled, Bite Cells Cancelled, Crenated Cell Cancelled, Acanthocytes (Spur) Cancelled, Rouleaux Cancelled, Schistocytes Cancelled, Sodium 138, Potassium 3.9, Chloride 104, Carbon Dioxide 29.0, Anion Gap 5, BUN 16, Creatinine 1.14 H, Estim Creat Clear Calc 54.33, Est GFR (MDRD) Af Amer 60, Est GFR (MDRD) Non-Af 50 L, BUN/Creatinine Ratio 14.0, Glucose 247 H, Calcium 8.4 L 10/12/23 03:50: WBC 18.1 H, RBC 3.73 L, Hgb 12.6, Hct 37.9, MCV 101.6 H, MCH 33.8 H, MCHC 33.2, RDW Std Deviation 46.0 H, RDW Coeff of [place] 12.3, Plt Count 159, MPV 11.4, Immature Gran % (Auto) 0.400, Neut % (Auto) 83.0 H, Lymph % (Auto) 7.9 L, [place] % (Auto) 7.9, Eos % (Auto) 0.4, Baso % (Auto) 0.4, Absolute Neuts (auto) 15.0 H, Absolute Lymphs (auto) 1.44, Nucleated RBC % 0 Rhythm Strip Rhythm Strip: Sinus Rhythm Rate: 75 Ectopy: None Imaging Radiology Impression Brain CT 10/12/23 03:10 IMPRESSION: No acute intracranial finding. Electronically Signed: Mark Mcdowell MD at 3:47 EDT , Chest X-Ray 10/12/23 03:30 IMPRESSION: No acute pulmonary finding. Electronically Signed: Mark Mcdowell MD at 3:45 EDT , Assessment & Plan Assessment/Plan (1) Multiple falls: PLAN: Plan The patient is a 73 y/o F w/ PMHx: JONO using oxygen qHS only, CKD possible stage III unclear subtype, Morbid Obesity, HTN, HLD, Chronic COPD w/ Chronic Hypoxic Respiratory Failure (2-3L NC), Former tobacco use, Nonobstructive CAD/Nonischemic cardiomyopathy who presents to the [facility] ED on 10/12/23 with history of 3 days of progressively worsening fatigue, malaise, dizziness and frequent falls with no recent fevers or chills reporting that she has been losing her balance and occasionally falling backwards with no head trauma or loss of consciousness with mildly increased lower extremity swelling above her baseline and reports that she recently started new medications including bupropion to assist in decreasing her appetite but unfortunately upon evening prior to ED presentation following a fall she could not get up prompting EMS call and transition to the ED given severe debility. #1. Adult FTT secondary to Dizziness/LH, ? Vertiginous symptoms (lower suspicion), debility with frequent falls, adult failure to thrive with leukocytosis of unclear etiology: Will admit to PCU to be cautious, will hold patient bupropion especially given onset of frequent falls and dizziness following start of this medication, CT head without acute findings and timeline would have expected findings if CVA and also would be constant, will cycle cardiac enzymes, will obtain orthostatic vital signs, will judiciously hydrate pending orthostatic vital signs and may bolus IV fluids as needed pending results, magnesium level requested, FLP in AM, urinalysis and urine culture requested but pending upon evaluation, procalcitonin requested, will judiciously hydrate and repeat chest x-ray in the a.m. given concern for possibly infectious unclear source as well, PT/OT/case management consult for discharge planning. #2. Nonobstructive CAD/nonischemic cardiomyopathy: Patient with single-vessel diagonal branch disease, nonobstructive, following with cardiology with last evaluation 08/28/2023 in the office, will continue aspirin, statin, Coreg, lisinopril home regimen. #3. Chronic COPD with chronic hypoxic respiratory failure (2-3L NC): Will maintain on home oxygen supplementation, continue ATC duonebs, PRN albuterol, HOB, IS parameters. #4. Hypertension: Continue home regimen including lisinopril, Coreg, PRN hydralazine. #5. Hyperlipidemia: We will continue patient on statin therapy. #6. Morbid Obesity: Weight loss and lifestyle changes encouraged. Will hold patient bupropion especially given onset of frequent falls and dizziness following start of this medication. #7. Former Tobacco Abuse: Encouraged continued tobacco cessation. #8. Chronic Kidney Disease Stage III unclear subtype per GFR trending: Admission BUN/Cr 16/1.14, GFR 50, baseline renal function 0.7-1.0, most recently noted 09/03/2023 creatinine 1.07 with at that time GFR noted to be 53 consistent with stage III, repeat BMP in AM. #9. JONO: Patient does not use CPAP or BiPAP but only supplemental oxygen at night. #10. DVT prophylaxis: Lovenox. #11. CODE status: Patient MIGUEL is her she notes and living will is she believes in place but uncertain. Discussed CODE status at length including difference between FULL code, DNR-CCA and DNR-CC status. Following discussions about the differences in these status, requested Full Code status. Advanced Care Planning Face to Face Time: 16 minutes. Charges/Coding Visit Charges Inpatient E&M: 04900 Init Hosp L2 Procedures Hospitalists Procedures: 31477 Advncd Care Plan 30 Min
[2023-10-12 05:49] LABS: Mucous, Urine 0 SEEN /hpf (<or=2+); Red Blood Cells-Urine 0 SEEN /hpf (0-5)
[2023-10-12 05:54] LABS: Color, Urine Yellow (Yellow); Glucose, Dipstick 1000 mg/dl (Normal); Ketone-Dipstick Negative (Negative); Leukocyte Esterase-Dipstick 25 /ul (Negative); Nitrite-Dipstick Positive (Negative); Occult Blood-Urine 150 /ul (Negative); Protein-Dipstick 100 mg/dl (Negative); Specific Gravity, Urine 1.015 (1.002-1.030); Urine Bilirubin Dipstick Negative (Negative); Urine Clarity Sl. Cloudy (Clear); Urine Urobilinogen 4 mg/dl (Normal)
[2023-10-12 06:03] LABS: Bacteria 4+ /hpf (None Seen); Squamous Epithelial Cells - UA 0-5 SEEN /hpf (5-10); White Blood Cells 0-5 SEEN /hpf (0-5)
[2023-10-12] MEDS: 0.9% Saline Lock 10 ML Syringe IV (06:29)
[2023-10-12] MEDS: 0.9% Normal Saline (1000mL) 1,000 ML 100 ML IV (06:30)
[2023-10-12 06:39] LABS: Magnesium 1.6 mg/dL (1.6-2.6); Troponin-I HS 10 pg/mL (3.0-54.0)
[2023-10-12 07:32] LABS: Troponin-I HS 14 pg/mL (3.0-54.0)
[2023-10-12] MEDS: Enoxaparin 40 MG/0.4 ML Syringe SC ×2 (08:02→21:39)
[2023-10-12] MEDS: Lisinopril 40 MG Tablet PO ×2 (08:02→21:39)
[2023-10-12] MEDS: Aspirin E.C. 81 MG Tablet PO (08:02)
[2023-10-12] MEDS: Carvedilol 25 MG Tablet PO ×2 (08:02→21:39)
[2023-10-12] MEDS: Menthol/Lanolin/Calamine/Znox 113 GM Tube 1 APPLIC TOPICAL ×3 (08:03→21:40)
[2023-10-12 09:36] LABS: Troponin-I HS 14 pg/mL (3.0-54.0)
[2023-10-12] MEDS: Ipratropium/Albuterol Sulfate 3 ML AMPUL.NEB INHALATION ×3 (09:37→20:05)
[2023-10-12] MEDS: Ceftriaxone 1 GM/50 ML BAG IV (09:53)
[2023-10-12] MEDS: buPROPion (XL) 300 MG TABLET.XL PO (09:53)
[2023-10-12] MEDS: Acetaminophen 325 MG Tablet 650 MG PO ×2 (15:25→21:38)
[2023-10-12] MEDS: hydrALAZINE 20 MG/ML Vial 10 MG IV (15:29)
--- NOTE | 2023-10-12 17:21 | PN.HOSP_ITS ---
Hospitalist Note Patient is a 73-year-old white female presented to the emergency department at [facility] on 10/12/2023 due to lightheadedness/dizziness/falls. She indicated this has been going on for a few weeks now she feels. She complained on presentation of about a 3-day history of progressively worsening fatigue, malaise, and dizziness/falls with no injury or loss of consciousness. She did indicate she recently started Wellbutrin to assist in decreasing her appetite. The evening prior to her presentation in the emergency department she had a fall which resulted in her inability to get up so EMS was called and she was transferred to the emergency department. On presentation she denied any overt room spinning and it sounded like she described more of a lightheadedness with gait instability. Her vital signs on presentation were unremarkable other than her oxygen saturation was 85% on room air with improvement to 96% on 3 L na cuco cannula. Her CBC did show a leukocytosis with a white count of 18.1 and a stable hemoglobin. She did have a left shift. Her BMP was overtly unremarkable. EKG showed sinus rhythm with no evidence of acute ischemia. CT of the brain was unremarkable for any acute findings. Her urinalysis was consistent with possible infection and a culture was obtained. Orthostatic vitals were also obtained and found to be positive show she was given IV fluids. Urine culture is currently pending and we did start her on ceftriaxone. I will give her 1 more liter of IV fluids and repeat orthostatic vitals. If her lightheadedness/dizziness persists will proceed with MRI tomorrow to rule out any vascular event in the cerebellum as the etiology for her symptoms. Plan is to reevaluate tomorrow and make further decisions from there.
[2023-10-12] MEDS: Lactated Ringers 1,000 ML 100 ML IV (17:53)
[2023-10-12 18:39] LABS: D-Dimer Quantitative (DVT/PE) 0.86 FEU/ug/m (0.27-0.49)
[2023-10-12] MEDS: predniSONE 20 MG Tablet 50 MG PO (19:48)
[2023-10-12] MEDS: Atorvastatin Calcium 20 MG Tablet PO (21:38)
[2023-10-12] MEDS: Imipramine HCl 25 MG Tablet PO (21:39)
[2023-10-13] VITALS (11 sets, daily range): BP systolic 112–182; BP diastolic 54–84; PULSE 67–93; RESP 16–24; TEMP 36.1–36.9; O2SAT 92–97; BMI 50.8
[2023-10-13] MEDS: predniSONE 20 MG Tablet 50 MG PO ×2 (01:27→06:27)
[2023-10-13] MEDS: Acetaminophen 325 MG Tablet 650 MG PO ×3 (03:49→21:44)
[2023-10-13] MEDS: hydrALAZINE 20 MG/ML Vial 10 MG IV (04:00)
[2023-10-13] MEDS: 0.9% Saline Lock 10 ML Syringe IV (04:00)
[2023-10-13] MEDS: Albuterol 2.5 MG/3 ML VIAL.NEB. INHALATION (04:15)
--- NOTE | 2023-10-13 05:55 | RAD_ITS ---
INDICATION: Dyspnea, cough EXAMINATION/TECHNIQUE: X-RAY - XR Chest 1 View COMPARISON: Chest x-ray from one day prior FINDINGS: LINES/DEVICES: None. LUNGS: Mild right basilar opacities. No sizable pleural effusion. No pneumothorax detected. MEDIASTINUM AND CARDIOVASCULAR STRUCTURES: Heart size stable, magnified by imaging technique. Mediastinal contours unremarkable. BONES AND SOFT TISSUES: No acute findings. RAD/Chest 1 View (Portable) IMPRESSION: Right basilar atelectasis versus infiltrate Electronically Signed: Blaise Farley MD at 7:16 EDT ,
[2023-10-13 05:58] LABS: Absolute Lymphocyte Count 1.04 X10^3/uL (0.83-4.51); Absolute Neutrophil Count 14.4 X10^3/uL (2.0-7.7); Basophil# 0.04 X10^3/uL; Basophil% 0.3 % (0-1); Hematocrit 37.8 % (37-47); Hemoglobin 12.1 g/dL (12.0-15.0); Lymphocyte # 1.04 X10^3/ul (0.83-4.51); Lymphocyte % 6.6 % (19-41); Mean Corpuscular Hgb 32.5 pg (27.0-32.0); Mean Corpuscular Volume 101.6 fL (81-99); Mean Platelet Vol. 11.8 fl (6.2-12.0); Monocyte# 0.31 X10^3/uL; NRBC Flagged by Analyzer 0 % (0-5); Neutrophil # 14.35 X10^3/uL (2.7-7.7); Neutrophil % 90.3 % (47-70); Platelet Count 162 K/mm3 (150-450); RBC Distribution Width CV 12.2 % (11.6-14.6); RBC Distribution Width SD 45.7 fl (35.1-43.9); Red Blood Count 3.72 M/mm3 (4.2-5.4); White Blood Count 15.9 K/mm3 (4.4-11.0)
[2023-10-13] MEDS: Ipratropium/Albuterol Sulfate 3 ML AMPUL.NEB INHALATION ×3 (07:08→20:29)
[2023-10-13] MEDS: Ceftriaxone 1 GM/50 ML BAG IV (08:44)
[2023-10-13] MEDS: Carvedilol 25 MG Tablet PO ×2 (08:46→21:44)
[2023-10-13] MEDS: Lisinopril 40 MG Tablet PO (08:46)
[2023-10-13] MEDS: Enoxaparin 40 MG/0.4 ML Syringe SC ×2 (08:46→21:44)
[2023-10-13] MEDS: buPROPion (XL) 300 MG TABLET.XL PO (08:46)
[2023-10-13] MEDS: Aspirin E.C. 81 MG Tablet PO (08:46)
[2023-10-13] MEDS: DiphenhydrAMINE 25 MG Capsule 50 MG PO (08:53)
[2023-10-13] MEDS: Ensure Plus High Protein 120 ML LIQUID PO ×3 (08:55→17:15)
--- NOTE | 2023-10-13 09:30 | CT_ITS ---
STUDY: CTA CHEST REASON FOR EXAM: Female, 73 years old. PE evaluation -- 13 HR PREP FOR ALLERGY RADIATION DOSAGE (If Supplied By Facility): CTDIvol = ( 28.20 ) mGy, DLP = ( 819.67 ) mGycm TECHNIQUE: The examination was performed with the intravenous administration of IV 100mL Isovue-370. Post-processing of the angiographic images was performed, with multiplanar reformation and 3D reconstruction. Individualized dose optimization techniques were used for this CT. COMPARISON: Comparison is made with prior study dated March 21, 2023. FINDINGS: Normal enhancement of the main pulmonary artery and right and left pulmonary arteries. Normal enhancement of the bilateral peripheral pulmonary arteries. There is no demonstrated pulmonary embolism. There is atherosclerotic calcification of the aortic arch with tortuosity. There is no demonstrated aortic dissection. Normal heart and pericardium. No coronary artery calcification is seen. Normal mediastinum. Normal hilar regions. Normal visualized trachea and bronchi. The lungs are well expanded. There is evidence of an azygous lobe. This is a normal variant. Minimal scarring in the lingular segment of the left upper lobe. Linear scarring in both lower lobes more prominent on the right side. Normal pleura. Normal chest wall structures. There are degenerative changes of thoracic spine. There is a 2.2 cm cyst in the posterior aspect of the left kidney. Stable 2.1 cm left adrenal adenoma. CT/CTA Chest W/WO Contrast IMPRESSION: No evidence of pulmonary embolism. No focal consolidation is seen. Electronically Signed: Cisco Calderon MD at 10:46 EDT ,
[2023-10-13] MEDS: amLODIPine 10 MG Tablet PO (10:01)
[2023-10-13] MEDS: Menthol/Lanolin/Calamine/Znox 113 GM Tube 1 APPLIC TOPICAL ×3 (10:06→21:58)
--- NOTE | 2023-10-13 10:37 | CASEMGMT ---
Met with pt to complete CALHOUN form. CALHOUN form explained to pt at this time who voiced understanding and signed form. Original form placed in pt?s chart and copy provided to the pt. Cristina Alvares RN CM
--- NOTE | 2023-10-13 12:08 | CASEMGMT ---
Addendum entered by Milka Johnson 10/13/23 15:05: MEDINA LANDIN updated by SW that patient was denied [facility] Rehab Unit. MEDINA LANDIN in to update patient. MEDINA LANDIN discussed private paying for SNF. Patient states she is not able to go privately to SNF. MEDINA LANDIN discussed HHC at discharge for SN, PT, OT. Patient reviewed list and prefers [facility] for HHC. Patient statest she has walker and rollator at home. Patient states she has home oxygen through [employer] at 2lpm continuously, MEDINA LANDIN to verify orders with [employer]. MEDINA LANDIN called and left referral with [facility], awaiting acceptance. CM will continue to follow this patient and plan for a safe discharge. Original Note: MEDINA LANDIN updated by therapy that patient would benefit from additional rehab at discharge. MEDINA LANDIN in to discuss needs at discharge. Patient states that she talked with her and she is agreeable to go to SNF/RU for additional therapy. Patient is currently in observation and will not have qualifying stay for SNF. MEDINA LANDIN discussed RU vs HHC at discharge. Patient states she would prefer to go to [facility] Rehab Unit and declined list. Patient states if she is not able to go to rehab unit, she will go home with HHC. A list of [facility] providers including quality and resource use data and consistent with the patient?s preferred geographical region, medical needs, and insurance network were provided from the [employer] Guide. Patient had no further questions or concerns. MEDINA LANDIN updated SW regarding requests for [facility] Rehab Unit.
[2023-10-13 12:21] LABS: ALB/GLOB Ratio 0.8 RATIO (0.9-2.4); AST(SGOT) 53 U/L (15-37); Alanine Aminotransfer ALT/SGPT 39 U/L (13-56); Albumin, Serum 2.9 g/dL (3.2-5.0); Alkaline Phosphatase 80 U/L (45-117); Anion Gap 8 (5-15); BUN 12 mg/dL (7-18); BUN/Creat Ratio 13.8 RATIO (10-20); Calcium,Total 8.8 mg/dL (8.5-10.1); Chloride 107 mmol/L (98-107); Creatinine, Serum 0.87 mg/dL (0.55-1.02); EST Glomerular Filtration Rate 68 mL/min (>60); Est Glom Filt Rate - Afr Amer 82 mL/min (>60); Estimated Creatinine Clearance 78.68 ml/min; Globulin 3.6 g/dL (2.2-4.2); Glucose 278 mg/dL (74-106); Protein, Total 6.5 g/dL (6.4-8.2); Sodium Level 140 mmol/L (136-145)
--- NOTE | 2023-10-13 12:40 | CASEMGMT ---
Addendum entered by Abigail Wheeler 10/13/23 14:39: Acute Rehab declined patient. Abigail LOPEZ Original Note: Per RN CM patient is agreeable to going to [facility] Acute Rehab. SW made a referral to [facility] Acute Rehab. Abigail LOPEZ
--- NOTE | 2023-10-13 16:05 | CASEMGMT ---
MEDINA LANDIN received call back from [facility] and they are able to accept patient with planned start of care for . MEDINA LANDIN updated patient. Patient had no further questions or concerns.
--- NOTE | 2023-10-13 16:57 | PN.HOSP_ITS ---
Reason for Visit Reason for Visit: Falls/lightheadedness Subjective Subjective Patient states she is feeling much better and she has had no further dizziness/lightheadedness. Her symptoms seem to resolve with IV fluids and I highly suspect she is volume depleted on presentation. She does state that she feels a little bit shaky today. Therapy thought she would do well with rehab however she was declined by inpatient rehab and residential facility as she did too well for that type of care so home health has been set up and that will start on . Objective Data Objective Data Vital Signs: Vital Signs Temp Pulse Resp BP Pulse Ox O2 Del Method O2 Flow Rate 98.5 F 77 20 H 150/75 H 94 Nasal Cannula 3 10/13/23 10:00 10/13/23 13:04 10/13/23 13:04 10/13/23 10:00 10/13/23 10:00 10/13/23 10:00 10/13/23 12:01 Oxygen Flow Rate (L/min) 3 Oxygen Delivery Method Nasal Cannula Weight: 134.3 kg Body Mass Index (BMI) 50.8 Intake & Output: Intake and Output for Last 24 Hours 10/11/23 10/12/23 10/13/23 23:59 23:59 23:59 Intake Total 1900 / 1900 1350 / 1350 Balance 1900 / 1900 1350 / 1350 Lab / Micro Data 10/13/23 05:34 10/13/23 05:34 Labs: Laboratory Results - last 24 hr 10/12/23 18:00: D-Dimer Quant (PE/DVT) 0.86 H* 10/13/23 05:34: WBC 15.9 H, RBC 3.72 L, Hgb 12.1, Hct 37.8, MCV 101.6 H, MCH 32.5 H, MCHC 32.0, RDW Std Deviation 45.7 H, RDW Coeff of Juventino 12.2, Plt Count 162, MPV 11.8, Immature Gran % (Auto) 0.800, Neut % (Auto) 90.3 H, Lymph % (Auto) 6.6 L, Ste[place]s % (Auto) 2.0, Eos % (Auto) 0.0, Baso % (Auto) 0.3, Absolute Neuts (auto) 14.4 H, Absolute Lymphs (auto) 1.04, Nucleated RBC % 0, Sodium 140, Potassium 4.0, Chloride 107, Carbon Dioxide 25.0, Anion Gap 8, BUN 12, Creatinine 0.87, Estim Creat Clear Calc 78.68, Est GFR (MDRD) Af Amer 82, Est GFR (MDRD) Non-Af 68, BUN/Creatinine Ratio 13.8, Glucose 278 H, Calcium 8.8, Total Bilirubin 0.50, AST 53 H, ALT 39, Alkaline Phosphatase 80, Total Protein 6.5, Albumin 2.9 L, Globulin 3.6, Albumin/Globulin Ratio 0.8 L Micro: Microbiology 10/12/23 05:34 Urine, Clean Catch Urine Culture - Preliminary Presumptive E. coli Radiography Diagnostic Testing: Radiology Impression Chest X-Ray 10/13/23 05:55 IMPRESSION: Right basilar atelectasis versus infiltrate Electronically Signed: Blaise Farley MD at 7:16 EDT , Chest CTA 10/13/23 09:30 IMPRESSION: No evidence of pulmonary embolism. No focal consolidation is seen. Electronically Signed: Cisco Calderon MD at 10:46 EDT , Rhythm Strip Rhythm Strip: Sinus Rhythm Rate: 75 Ectopy: None Physical Exam Const alert, oriented x3, no apparent distress and well nourished; Negative for average body habitus or healthy appearing Constitutional Narrative: Morbidly obese, white female, sitting up in a chair at the bedside, physical therapy at in the room working with the patient, appears comfortable, nontoxic HEENT head/scalp atraumatic and moist oral mucous membranes HEENT Narrative: Mallampati 3, no thrush Head and Scalp: normocephalic Resp normal respiratory effort, no retractions and no use of accessory muscles Resp Narrative: Diffusely diminished but no adventitious sounds, patient is on her baseline oxygen of 2 L, dyspneic with exertion Auscultation: Negative for rales, rhonchi or wheezes Cardio regular rate, regular rhythm, S1 normal heart sound, S2 normal heart sound, no rub, no gallops and no clicks; Negative for no murmurs Cardio Narrative: 3 out of 6 systolic murmur loudest at right upper sternal border GI normal to inspection, nondistended, normoactive bowel sounds, soft to palpation and non-tender GI Narrative: Large protuberant abdomen Extremity no clubbing, cyanosis or edema Extremity Narrative: Pedal pulses are 2+, radial pulses are 2+ Neuro oriented x3, moves all extremities and no focal motor deficits Neuro Narrative: Generalized weakness noted-proximal greater than distal Speech: speech normal Psych affect normal Psych Narrative: Very pleasant, interacts appropriately, seems slightly fatigued Assessment & Plan Assessment/Plan (1) Abrasion, multiple sites: (2) Multiple falls: (3) Generalized weakness: (4) Leukocytosis: (5) Hyperglycemia: PLAN: Plan Lightheadedness -Orthostatics were positive -This has resolved with IV fluids -Patient is found to be hyperglycemic and hemoglobin A1c is pending I do question whether or not she is been having an osmotic diuresis causing some dehydration -Continue to monitor -Cardiac enzymes were negative Generalized weakness/falls -PT/OT are following the patient -Therapy services did suggest she may benefit from ongoing therapy after discharge in the inpatient setting either at rehab or SNF however she has been declined by both services and plan is for home health care at the time of discharge -This will start on -CT of the brain was unremarkable for any acute findings Leukocytosis -Etiology unclear -May be reactive -No infectious symptoms -CTA of the chest was done and no significant findings there -Repeat CBC in a.m. Hyperglycemia -Blood sugars been markedly elevated and she is not on any steroids -Appears they have been trending up when I look at her previous trends -Check hemoglobin A1c as I suspect the patient may be a newly diagnosed diabetic Elevated D-dimer -CTA of the chest was performed and negative for PE Chronic hypoxic respiratory failure secondary to COPD -FEV1 is 32% predicted -Patient did have a recent echocardiogram done in March 2023 that showed an EF of 70%, stage I diastolic dysfunction and moderate focal aortic valve calcification--> pulmonary pressures were not reported -Continue home inhalers JONO -Continue home CPAP History of nonischemic cardiomyopathy -Patient is currently well compensated and last echo showed an EF of 70% -Continue current medical therapy Nonobstructive CAD/chronic LBBB -Patient follows as an outpatient with cardiology with her last appointment being in August -Overall stable -Last cardiac catheterization was in 2011 with no intervention -Cardiac enzymes were cycled and unremarkable x 3 -Continue home aspirin -Continue home carvedilol -Continue home lisinopril Hyperlipidemia -Continue home statin Urinary incontinence -Continue home medication Depression -Continue home Wellbutrin Tobacco abuse -Remote--> quit in March 2023 -Recommend ongoing cessation Morbid obesity -BMI is 50.8 -Complicates treatment, prognosis, outcomes -Recommend weight loss DVT prophylaxis -Continue enoxaparin 40 mg SQ twice daily CODE STATUS -Full code as verified on admission Charges/Coding Visit Charges Inpatient E&M: 16102 Subs Hosp L2
[2023-10-13 17:24] LABS: Hemoglobin A1c 7.3 % (3.8-5.6)
[2023-10-13 17:37] LABS: Bedside Glucose 280 mg/dL (74-106)
[2023-10-13] MEDS: levoFLOXacin IV 750 MG/150 ML BAG 100 MG IV (21:43)
[2023-10-13] MEDS: Atorvastatin Calcium 20 MG Tablet PO (21:44)
[2023-10-13] MEDS: Imipramine HCl 25 MG Tablet PO (21:54)
[2023-10-14 03:00] VITALS: BP 137/53; PULSE 67; RESP 18; TEMP 36.9; O2SAT 95
[2023-10-14 03:30] VITALS: BMI 51.7
[2023-10-14] MEDS: levoFLOXacin 750 MG Tablet PO (06:41)
[2023-10-14 06:58] VITALS: PULSE 67; RESP 22; O2SAT 95
[2023-10-14] MEDS: Ipratropium/Albuterol Sulfate 3 ML AMPUL.NEB INHALATION ×2 (06:58→13:14)
[2023-10-14 07:18] LABS: Absolute Lymphocyte Count 2.53 X10^3/uL (0.83-4.51); Absolute Neutrophil Count 15.3 X10^3/uL (2.0-7.7); Basophil# 0.07 X10^3/uL; Basophil% 0.4 % (0-1); Eosinophil# 0.04 X10^3/uL; Eosinophils% 0.2 % (0-5); Hematocrit 38.8 % (37-47); Hemoglobin 12.4 g/dL (12.0-15.0); Lymphocyte # 2.53 X10^3/ul (0.83-4.51); Lymphocyte % 13.1 % (19-41); Mean Corpuscular Hgb 33.1 pg (27.0-32.0); Mean Corpuscular Volume 103.5 fL (81-99); Monocyte# 1.33 X10^3/uL; Monocyte% 6.9 % (0-10); NRBC Flagged by Analyzer 0 % (0-5); Neutrophil # 15.26 X10^3/uL (2.7-7.7); Neutrophil % 78.8 % (47-70); Platelet Count 192 K/mm3 (150-450); RBC Distribution Width CV 12.5 % (11.6-14.6); RBC Distribution Width SD 47.3 fl (35.1-43.9); Red Blood Count 3.75 M/mm3 (4.2-5.4); White Blood Count 19.4 K/mm3 (4.4-11.0)
[2023-10-14 07:32] VITALS: BP 151/65; PULSE 72; RESP 18; TEMP 36.8; O2SAT 94
[2023-10-14] MEDS: buPROPion (XL) 300 MG TABLET.XL PO (07:34)
[2023-10-14] MEDS: Carvedilol 25 MG Tablet PO (07:34)
[2023-10-14] MEDS: Aspirin E.C. 81 MG Tablet PO (07:34)
[2023-10-14] MEDS: amLODIPine 10 MG Tablet PO (07:35)
[2023-10-14] MEDS: Lisinopril 40 MG Tablet PO (07:35)
[2023-10-14] MEDS: Enoxaparin 40 MG/0.4 ML Syringe SC (07:35)
[2023-10-14] MEDS: Acetaminophen 325 MG Tablet 650 MG PO (07:37)
[2023-10-14] MEDS: Ensure Plus High Protein 120 ML LIQUID PO (07:37)
[2023-10-14] MEDS: Menthol/Lanolin/Calamine/Znox 113 GM Tube 1 APPLIC TOPICAL (07:38)
[2023-10-14 07:52] LABS: Anion Gap 3 (5-15); BUN 19 mg/dL (7-18); BUN/Creat Ratio 20.7 RATIO (10-20); Calcium,Total 8.8 mg/dL (8.5-10.1); Chloride 106 mmol/L (98-107); Creatinine, Serum 0.92 mg/dL (0.55-1.02); EST Glomerular Filtration Rate 64 mL/min (>60); Est Glom Filt Rate - Afr Amer 77 mL/min (>60); Estimated Creatinine Clearance 75.23 ml/min; Glucose 177 mg/dL (74-106); Potassium 3.5 mmol/L (3.5-5.1); Sodium Level 142 mmol/L (136-145)
[2023-10-14] MEDS: metFORMIN HCl 500 MG Tablet PO (09:09)
--- NOTE | 2023-10-14 13:03 | DS.PCM_ITS ---
Providers Date of Admission: 10/12/23 Date of Discharge: 10/14/23 Primary Care Physician: Dr. Justin Bolden MD Reason For Visit: NEAR SYNCOPE, ADULT FTT Diagnosis Discharge Diagnosis (1) Abrasion, multiple sites: Status: Acute Code(s): T07.XXXA - Unspecified multiple injuries, initial encounter (2) Multiple falls: Status: Acute Code(s): R29.6 - Repeated falls (3) Generalized weakness: Status: Acute Code(s): R53.1 - Weakness (4) Leukocytosis: Status: Acute Code(s): D72.829 - Elevated white blood cell count, unspecified (5) Hyperglycemia: Status: Acute Code(s): R73.9 - Hyperglycemia, unspecified Medications at Discharge Home Medications albuterol sulfate 90 mcg/actuation aerosol inhaler 2 puff inhalation Q4H PRN SHORTNESS OF BREATH/WHEEZING 10/02/16 aspirin 81 mg tablet,delayed release 81 mg PO DAILY HEART HEALTH 10/02/16 imipramine HCl 25 mg tablet 25 - 50 mg PO QHS BLADDER CONTROL 10/02/16 simvastatin 40 mg tablet 40 mg PO QHS CHOLESTEROL 10/02/16 cholecalciferol (vitamin D3) 50 mcg (2,000 unit) capsule 2,000 unit PO DAILY SUPPLEMENT 11/24/17 ipratropium 0.5 mg-albuterol 3 mg (2.5 mg base)/3 mL nebulization soln 3 ml inhalation Q6H #180 mL 09/03/23 Nebulizer machine #1 ea 09/15/23 bupropion HCl 300 mg 24 hr tablet, extended release 300 mg PO DAILY 10/12/23 carvedilol 25 mg tablet 25 mg PO Q12H HEART 10/12/23 lisinopril 40 mg tablet 40 mg PO DAILY 10/12/23 amlodipine 10 mg tablet 10 mg PO DAILY #30 tabs 10/14/23 cephalexin 500 mg capsule 500 mg PO BID #10 caps 10/14/23 metformin 500 mg tablet 500 mg PO BIDCM #60 tabs 10/14/23 Hospital Course Summary of Care Provided Hospital Course: Mrs. Seth is a 73-year-old white female presented to the emergency department at [facility] on 10/12/2023 due to lig htheadedness/dizziness/falls. She indicated this has been going on for a few weeks now she feels. She complained on presentation of about a 3-day history of progressively worsening fatigue, malaise, and dizziness/falls with no injury or loss of consciousness. She did indicate she recently started Wellbutrin to assist in decreasing her appetite. The evening prior to her presentation in the emergency department she had a fall which resulted in her inability to get up so EMS was called and she was transferred to the emergency department. On presentation she denied any overt room spinning and it sounded like she described more of a lightheadedness with gait instability. Her vital signs on presentation were unremarkable other than her oxygen saturation was 85% on room air with improvement to 96% on 3 L nasal cannula. Her CBC did show a leukocytosis with a white count of 18.1 and a stable hemoglobin. She did have a left shift. Her BMP was overtly unremarkable. EKG showed sinus rhythm with no evidence of acute ischemia. CT of the brain was unremarkable for any acute findings. Her urinalysis was consistent with possible infection and a culture was obtained. Orthostatic vitals were also obtained and found to be positive show she was given IV fluids. Ceftriaxone was started after urine culture was sent. Her urine culture resulted positive for an E. coli UTI with chronic c ounts greater than 100,000. It was a pansensitive organism and we discharged her home with another 5 days of Keflex to complete her antibiotic regimen for her UTI. As noted, she was also found to be dehydrated. Her orthostatic vitals responded well to IV fluids and her symptoms resolved. She denied any further lightheadedness with moving around or with therapy getting up in her room and in the hallway. She was stable with regards to oxygen on her home 2 L at baseline. She was seen by physical and Occupational Therapy and they felt that she may benefit from some rehab acute rehab declined the patient and do the fact that she was admitted as observation did not qualify for discharge to long-term facility. We were able to arrange home health care at the time of discharge and she will start home health care on . She was moving much better at the time of discharge with therapy services and as noted above, her lightheadedness had resolved. She was noted to be hyperglycemic and we did obtain a hemoglobin A1c. Her A1c was found to be 7.3 which is consistent with a diagnosis of diabetes mellitus type 2. We started on metformin 500 mg p.o. twice daily and asked her to follow-up with her primary care physician for ongoing management of her diabetes. She was also given information with regards to diabetes and diet. Her blood pressure also was noted to be elevated during her stay and upon review of previous hospitalizations seems to be chronically elevated. We did increase her amlodipine to 10 mg p.o. twice daily and she was discharged with a prescription for this in addition to the metformin and her antibiotic. I have asked that she follow-up with her primary care physician within 1 week for hospital follow-up and a blood pressure check to see if any additional medication will be required to attain a goal blood pressure of 130/80 or less. She was able to be discharged home with home health care in stable condition on 10/14/2023. Discharge diagnoses: Orthostatic hypotension-resolved Lightheadedness-resolved Generalized weakness Falls E. coli UTI Newly diagnosed DM-2 Uncontrolled hypertension Leukocytosis Chronic hypoxic respiratory failure COPD JONO History of nonischemic cardiomyopathy Nonobstructive CAD Chronic left bundle branch block Hyperlipidemia Urinary incontinence Depression History of tobacco abuse Morbid obesity Physical Exam Const alert, oriented x3, no apparent distress, no limitations and well nourished; Negative for average body habitus or healthy appearing Constitutional Narrative: Morbidly obese, white female, sitting up in bed talking on the phone and watching television, appears comfortable and nontoxic, does appear chronically ill General Appearance: cooperative, comfortable, well kempt and well developed Orientation / Consciousness: awake, oriented to person, oriented to place and oriented to time Exam Limitations: no limitations Nutritional Appearance: morbidly obese HEENT normocephalic, head/scalp atraumatic, hearing grossly normal bilaterally and m oist oral mucous membranes HEENT Narrative: Mallampati 3, no thrush Eyes PERRL, EOMs intact bilaterally and conjunctivae normal Eyes Narrative: No scleral icterus Neck no lymphadenopathy and supple Neck Narrative: Trachea midline, no thyroid enlargement Resp normal respiratory effort, no retractions, no use of accessory muscles and clear to auscultation bilaterally Resp Narrative: Diffusely diminished but clear Auscultation: Negative for rales, rhonchi or wheezes Cardio regular rate, regular rhythm, S1 normal heart sound, S2 normal heart sound, no rub, no gallops and no clicks; Negative for no murmurs Cardio Narrative: 3 out of 6 systolic murmur loudest at right upper sternal border GI normal to inspection, nondistended, normoactive bowel sounds, soft to palpation and non-tender GI Narrative: Large protuberant abdomen Extremity no clubbing, cyanosis or edema Extremity Narrative: Pedal pulses are 2+, radial pulses are 2+ Skin no rashes or lesions noted, skin turgor normal and no jaundice Skin Narrative: Abrasion on forehead centrally, right elbow, and right knee-healing well with no signs of infection, no drainage Neuro oriented x3, CN's II-XII intact bilaterally, moves all extremities and no focal motor deficits Neuro Narrative: Generalized weakness noted-proximal greater than distal Speech: speech normal Psych affect normal Psych Narrative: Very pleasant, interacts appropriately, seems slightly fatigued Weight / BMI Weight Weight: 136.7 kg Body Mass Index (BMI) 51.7 ABG / Lab / Microbiology Data 10/14/23 06:45 10/14/23 06:45 Laboratory: Laboratory Results - last 24 hr 10/13/23 05:34: Hemoglobin A1c 7.3 H 10/13/23 17:12: POC Glucose 280 H 10/14/23 06:45: WBC 19.4 H, RBC 3.75 L, Hgb 12.4, Hct 38.8, MCV 103.5 H, MCH 33.1 H, MCHC 32.0, RDW Std Deviation 47.3 H, RDW Coeff of Juventino 12.5, Plt Count 192, MPV 12.0, Immature Gran % (Auto) 0.600, Neut % (Auto) 78.8 H, Lymph % (Auto) 13.1 L, [place] % (Auto) 6.9, Eos % (Auto) 0.2, Baso % (Auto) 0.4, Absolute Neuts (auto) 15.3 H, Absolute Lymphs (auto) 2.53, Nucleated RBC % 0, Sodium 142, Potassium 3.5, Chloride 106, Carbon Dioxide 33.0 H, Anion Gap 3 L, BUN 19 H, Creatinine 0.92, Estim Creat Clear Calc 75.23, Est GFR (MDRD) Af Amer 77, Est GFR (MDRD) Non-Af 64, BUN/Creatinine Ratio 20.7 H, Glucose 177 H, Calcium 8.8 Microbiology: Microbiology 10/12/23 05:34 Urine, Clean Catch Urine Culture - Final Presumptive E. coli D/C Instructions Discharge Diet: Low fat / Low cholesterol and 1800 Calorie Control Diet Discharge Activity: Return to Normal Activity Meaningful Use Info Meaningful Use Diagnoses (Choose all that apply): None applicable Discharge Plan Admission Admit Date/Time: 10/12/23 05:26 Primary Reason for Your Visit: Lightheadedness/dizziness/falls Attending Provider: Penny Redd Primary Care Provider: Justin Bolden Consulting Providers: Chantelle Chavarria Instructions Patient Instructions: Diabetes Food Shop Meals Prep, Diabetes Food Tips Ch, Diabetes: Meal Planning, Diabetes Inspect Feet Discharge Orders/Prescriptions Prescriptions: New amlodipine 10 mg Tablet 10 mg PO DAILY Qty: 30 1RF metformin 500 mg Tablet 500 mg PO BIDCM Qty: 60 1RF cephalexin 500 mg capsule 500 mg PO BID Qty: 10 0RF Continued cholecalciferol (vitamin D3) 2,000 unit capsule 2,000 unit PO DAILY ipratropium-albuterol 0.5 mg-3 mg(2.5 mg base)/3 mL solution for nebulization 3 ml inhalation Q6H Qty: 180 11RF aspirin 81 MG tablet 81 mg PO DAILY simvastatin 40 MG tablet 40 mg PO QHS albuterol sulfate 1 PUFF inhaler 2 puff INHALATION Q4H PRN (Reason: SHORTNESS OF BREATH/WHEEZING ) imipramine HCl 25 MG tablet 25 - 50 mg PO QHS carvedilol 25 mg tablet 25 mg PO Q12H lisinopril 40 mg tablet 40 mg PO DAILY bupropion HCl 300 mg tablet extended release 24 hr 300 mg PO DAILY (DME) Nebulizer machine See Rx Instructions .ROUTE .MEDSUPPLY Qty: 1 0RF Rx Instructions: As directed Referrals / Follow Up: Justin Bolden MD [Primary Care Provider] - Within 1 Week Disposition Disposition (needs filled in before D/C Order can be placed): Home Health Service Charges/Coding Visit Charges Inpatient E&M: 71919 Disch Hosp >30min
[2023-10-14 13:15] VITALS: PULSE 85; RESP 22
--- NOTE | 2023-10-14 13:46 | CASEMGMT ---
Patient has order for discharge. MEDINA LANDIN called [facility] to update regarding discharge, start of care planned for tomorrow. MEDINA LANDIN in to updated patient. Patient states will bring oxygen portability from home for at discharge. Patient had no further questions or concerns.
--- NOTE | 2023-10-14 14:28 | PHA.DC_ITS ---
Pharmacy [facility] has performed discharge medication reconciliation and counseling for this patient. 1. AMLODIPINE 10MG PO DAILY 2. CEPHALEXIN 500MG PO BID X 5 DAYS 3. METFORMIN 500MG PO BIDCM The patient's discharge medication list was reviewed for discrepancies and discrepancies were resolved. The patient was counseled on the following discharge medications and changes in medications for homegoing were reviewed. The Reason for Use, instructions for use, and potential side effects were reviewed for all new medications. The patient's questions regarding all of their medications were answered. The patient was able to verbally demonstrate an understanding of their discharge medications. Medications at Discharge Home Medications albuterol sulfate 90 mcg/actuation aerosol inhaler 2 puff inhalation Q4H PRN SHORTNESS OF BREATH/WHEEZING 10/02/16 aspirin 81 mg tablet,delayed release 81 mg PO DAILY HEART HEALTH 10/02/16 imipramine HCl 25 mg tablet 25 - 50 mg PO QHS BLADDER CONTROL 10/02/16 simvastatin 40 mg tablet 40 mg PO QHS CHOLESTEROL 10/02/16 cholecalciferol (vitamin D3) 50 mcg (2,000 unit) capsule 2,000 unit PO DAILY SUPPLEMENT 11/24/17 ipratropium 0.5 mg-albuterol 3 mg (2.5 mg base)/3 mL nebulization soln 3 ml inhalation Q6H breathing #180 mL 09/03/23 Nebulizer machine #1 ea 09/15/23 bupropion HCl 300 mg 24 hr tablet, extended release 300 mg PO DAILY mental health 10/12/23 carvedilol 25 mg tablet 25 mg PO Q12H HEART 10/12/23 lisinopril 40 mg tablet 40 mg PO DAILY blood pressure 10/12/23 amlodipine 10 mg tablet 10 mg PO DAILY #30 tabs 10/14/23 cephalexin 500 mg capsule 500 mg PO BID #10 caps 10/14/23 metformin 500 mg tablet 500 mg PO BIDCM #60 tabs 10/14/23
== END 2023-10-14 13:13 | disposition home health service (06) ==
LOC: ED 05:16 → PCU 05:46
PROVIDERS: Admitting Provider Family Medicine; Emergency Provider Emergency Medicine; PCP Family Medicine; Visit Provider Internal Medicine
DX: I95.1 Orthostatic hypotension (principal); J96.11 Chronic respiratory failure with hypoxia; J44.9 Chronic obstructive pulmonary disease, unspecified; I42.8 Other cardiomyopathies; Z68.43 Body mass index [BMI] 50.0-59.9, adult; E66.01 Morbid (severe) obesity due to excess calories; E11.65 Type 2 diabetes mellitus with hyperglycemia; E11.22 Type 2 diabetes mellitus with diabetic chronic kidney disease; N18.30 Chronic kidney disease, stage 3 unspecified; N39.0 Urinary tract infection, site not specified; B96.20 Unspecified Escherichia coli [E. coli] as the cause of diseases classified elsewhere; I44.7 Left bundle-branch block, unspecified; I25.10 Atherosclerotic heart disease of native coronary artery without angina pectoris; R32 Unspecified urinary incontinence; I12.9 Hypertensive chronic kidney disease with stage 1 through stage 4 chronic kidney disease, or unspecified chronic kidney disease; E78.5 Hyperlipidemia, unspecified; W19.XXXA Unspecified fall, initial encounter; T07.XXXA Unspecified multiple injuries, initial encounter; Z87.891 Personal history of nicotine dependence; D72.829 Elevated white blood cell count, unspecified; Z99.81 Dependence on supplemental oxygen; Z79.899 Other long term (current) drug therapy; Z79.82 Long term (current) use of aspirin; R29.6 Repeated falls; R62.7 Adult failure to thrive
CPT/HCPCS: 36415; 70450; 71045; 71275; 80048; 80053; 81001; 82962; 83036; 83735; 84145; 84484; 85025; 85379; 87086; 87088; 87186; 94640; 94668; 96361; 96365; 96366; 96367; 96372; 96375; 96376; 97162; 97166; 97802; 99221; 99252; 99284; J7030; J7120; Q9967; A4216; G0378; G0463

== ENCOUNTER 2024-03-23 21:12 | Inpatient (IN) | payer MEDICARE, OTHER, SELFPAY ==
[2024-03-23 21:13] VITALS: BP 126/59; PULSE 117; RESP 23; TEMP 37.3; O2SAT 91; BMI 40.7
[2024-03-23 21:15] VITALS: BP 126/59; PULSE 111; RESP 22; TEMP 37.3; O2SAT 92
[2024-03-23 21:46] VITALS: BP 107/61; PULSE 120; RESP 24; TEMP 37.5; O2SAT 91
--- NOTE | 2024-03-23 21:59 | EKG12_ITS ---
Test Reason : SHORTNESS OF BREATH Blood Pressure : / mmHG Vent. Rate : 108 BPM Atrial Rate : 000 BPM P-R Int : 000 ms QRS Dur : 078 ms QT Int : 298 ms P-R-T Axes : 000 078 -15 degrees QTc Int : 399 ms Atrial fibrillation with rapid ventricular response Abnormal QRS-T angle, consider primary T wave abnormality Abnormal ECG Confirmed by Robert Etienne ([id number]), editor magazine [employer]ILL [employer] ([id number]) on 03/28/2024 10:42:40 AM Referred By: VIANEY Confirmed By:Robert Etienne
--- NOTE | 2024-03-23 22:01 | EDS_ITS ---
HPI History of Present Illness Chief Complaint: Shortness of Breath Informant: patient, spouse/S.O. and EMS Narrative Narrative: 73-year-old female presenting to the emergency room with chief complaint of dyspnea. Patient states that yesterday she began to have runny nose sore throat cough and increasing shortness of breath. She has home oxygen typically wearing 2 to 4 L due to her COPD. She states that today she called her home oxygen company and had a brand-new concentrator out. She states she was noticing that her oxygen levels were into the low 80s. Eventually EMS was called and they noted a pulse ox of 83%. Patient denies any chest pain. No history of congestive heart failure. She denies any new swelling of her legs. states he feels okay but that he had a rough day at work because he was painting inside a house with fumes. He denies any fever cough or rhinorrhea or sore throat. She has no history of DVT or PE. She sees [facility]. [facility] Medical History Chronic hypoxic respiratory failure, on home oxygen therapy Morbid obesity CKD (chronic kidney disease), stage III Sleep apnea Nonischemic cardiomyopathy Essential (primary) hypertension LBBB (left bundle branch block) COPD (chronic obstructive pulmonary disease) Hyperlipidemia Nicotine abuse Atherosclerotic heart disease of [place] coronary artery without angina pectoris Bronchitis Home Medications ?Medication ?Instructions ?Recorded ?Last Taken ?Type albuterol sulfate 90 mcg/actuation 2 puff inhalation Q4H PRN 10/02/16 Unknown History aerosol inhaler SHORTNESS OF BREATH/WHEEZING aspirin 81 mg tablet,delayed 81 mg PO DAILY HEART HEALTH 10/02/16 03/18/23 History release imipramine HCl 25 mg tablet 25 - 50 mg PO QHS BLADDER CONTROL 10/02/16 03/18/23 History simvastatin 40 mg tablet 40 mg PO QHS CHOLESTEROL 10/02/16 03/18/23 History Nebulizer machine #1 ea 09/15/23 Unknown Rx bupropion HCl 300 mg 24 hr tablet, 300 mg PO DAILY mental health 10/12/23 Unknown History extended release carvedilol 25 mg tablet 25 mg PO Q12H HEART 10/12/23 Unknown History lisinopril 40 mg tablet 40 mg PO DAILY blood pressure 10/12/23 Unknown History amlodipine 10 mg tablet 10 mg PO DAILY #30 tabs 10/14/23 Unknown Rx cholecalciferol (vitamin D3) 25 25 mcg PO DAILY 03/08/24 Unknown History mcg (1,000 unit) capsule fluticasone fur. 200 mcg-umeclid 1 inh inhalation DAILY #60 ea 03/08/24 Unknown Rx 62.5 mcg-vilant 25 mcg inhalat.powder (Trelegy Ellipta) ipratropium 20 mcg-albuterol 100 1 puff inhalation BID 03/08/24 Unknown History mcg/actuation mist for inhalation (Combivent Respimat) metformin 1,000 mg tablet 1,000 mg PO BID 03/08/24 Unknown History Allergy/AdvReac Type Severity Reaction Status Date / Time Iodinated Contrast Media Allergy Other Verified 03/23/24 21:30 (CONTRASTS) meperidine (From Demerol) Allergy Unknown Verified 03/23/24 21:30 Penicillins (PCN) Allergy Rash Verified 03/23/24 21:30 Family History Mother Hypertension Diabetes Father Cancer Surgical History History of colonoscopy with polypectomy History of total hip arthroplasty History of cholecystectomy History of cataract surgery History of appendectomy History of left heart catheterization (09/03/11) Social History household members: none Smoking Status: Former smoker quit date: 04/04/23 alcohol intake: current substance use type: does not use ROS ROS ED Constitutional Constitutional ED: Reports fever(s) and sweats; Denies chills or weight loss Eyes Eyes: Denies change in vision or diplopia ENT ENT ED: Reports rhinorrhea and sore throat; Denies ear pain Cardiovascular Cardiovascular: Denies chest pain, orthopnea, palpitations or racing heartbeat Respiratory/Chest Respiratory/Chest: Reports cough, dyspnea and dyspnea on exertion; Denies orthopnea Gastrointestinal Gastrointestinal: Denies abdominal pain, diarrhea, nausea or vomiting Genitourinary Genitourinary ED: Denies dysuria, hematuria or urinary frequency Musculoskeletal Musculoskeletal: Denies arthralgias, back pain, myalgias or neck pain Integumentary Denies abscess or rash Neurologic Neurologic: Denies headache(s) or weakness Psychiatric Psychiatric: Denies anxiety, depression, suicidal ideation or suicidal thoughts Endocrine Endocrinology: Denies polydipsia, polyphagia or polyuria Allergic/Immunologic Allergic/Immunologic ED: Denies mouth swelling, tongue swelling or urticaria EXAM Physical Exam Const Vital Signs: 03/23/24 21:13 03/23/24 21:15 03/23/24 21:45 Temperature 99.2 F H 99.2 F H Temperature Source Oral Oral Pulse Rate 117 H 111 H Respiratory Rate 23 H 22 H Respiratory Effort Normal Non-Labored Respiratory Pattern Tachypnea Blood Pressure 126/59 H 126/59 H Blood Pressure Mean 81 81 Pulse Ox 91 92 Oxygen Delivery Method Nasal Cannula Nasal Cannula Oxygen Flow Rate (L/min) 6 6 03/23/24 21:46 03/23/24 22:25 03/23/24 22:25 Temperature 99.5 F H Temperature Source Oral Pulse Rate 120 H 110 H Respiratory Rate 24 H 20 H Respiratory Effort Respiratory Pattern Normal Blood Pressure 107/61 Blood Pressure Mean 76 Pulse Ox 91 91 Oxygen Delivery Method Nasal Cannula Nasal Cannula Oxygen Flow Rate (L/min) 5 5 03/23/24 22:53 Temperature 99 F Temperature Source Oral Pulse Rate 105 H Respiratory Rate 25 H Respiratory Effort Respiratory Pattern Blood Pressure 115/68 Blood Pressure Mean 83 Pulse Ox 90 Oxygen Delivery Method Nasal Cannula Oxygen Flow Rate (L/min) 5 Positive well nourished and well developed General Appearance ED: well developed HEENT Reports normocephalic, head/scalp atraumatic and moist mucous membranes Eyes PERRL and EOMs intact bilaterally Neck no lymphadenopathy, supple and no JVD Resp Resp Narrative: Patient is tachypneic with pursed lip breathing. She speaks in 4-5 word sentences. Cardio regular rate, regular rhythm and no murmurs Rate: tachycardic GI normal to inspection, nondistended, normoactive bowel sounds and non-tender Palpation: soft Back/Spine no CVA tenderness and normal ROM Extremity General Extremety ED: Yes edema General Extremity: edema bilateral lower extremity Details: mild Neuro oriented x3 and CN's II-XII intact bilaterally Sensorium / Orientation: alert Motor Exam: strength 5/5 throughout Psych mental status grossly normal Mood & Affect: Negative for depressed or tearful Skin no rashes or lesions noted and no wounds MDM MDM MDM Narrative Medical decision making narrative: Differential diagnosis includes but not limited to pneumonia pleural effusion pneumothorax COPD exacerbation sepsis viral syndrome Patient's white count is substantially elevated 36.2 hemoglobin 11.8 platelet count 188. 86.3 neutrophils. Lactic acid elevated 2.8 BNP is 190.7 troponin 6 normal LFTs my independent interpretation the chest x-ray is right lower lobe infiltrate with pleural effusion. Blood cultures were obtained and the patient is given a breathing treatment Rocephin and azithromycin. Ibuprofen was given for the low-grade temperature. Afib does appear new for the patient. Case will be discussed with the hospitalist regarding admission History & Record Review Discussion w/independent historian: Patient and Significant other Additional record(s) reviewed:: Prior inpatient record, Prior ED visit and Prior labs Lab Data Attestation: I reviewed the patient's lab results. Labs: Laboratory Results - last 24 hr 03/23/24 22:10 WBC 36.2 H* RBC 3.61 L Hgb 11.8 L Hct 35.8 L MCV 99.2 H MCH 32.7 H MCHC 33.0 RDW Std Deviation 46.3 H RDW Coeff of [place] 12.8 Plt Count 188 MPV 12.5 H Immature Gran % (Auto) 1.200 H Neut % (Auto) 86.3 H Lymph % (Auto) 5.3 L Snyder % (Auto) 6.8 Eos % (Auto) 0.1 Baso % (Auto) 0.3 Absolute Neuts (auto) 31.3 H Absolute Lymphs (auto) 1.93 Nucleated RBC % 0 Differential Comment SCANNED Diff Path Review May foll Sodium 138 Potassium 3.5 Chloride 103 Carbon Dioxide 25.0 Anion Gap 10 BUN 25 H Creatinine 1.27 H Estim Creat Clear Calc 47.27 Est GFR (MDRD) Af Amer 53 L Est GFR (MDRD) Non-Af 44 L BUN/Creatinine Ratio 19.7 Glucose 154 H Lactic Acid 2.8 H* Calcium 8.3 L Total Bilirubin 0.90 Direct Bilirubin 0.40 H AST 14 L ALT 33 Alkaline Phosphatase 77 Troponin I High Sens 6 B-Natriuretic Peptide 190.7 H Total Protein 6.5 Albumin 2.8 L Globulin 3.7 Radiography Diagnostic Testing: Clinical Impression(s) from Imaging Studies Chest X-Ray 03/23/24 22:08 IMPRESSION: Small right-sided pleural effusion with basilar opacity which could be atelectasis or pneumonia. Electronically Signed: Min Rees MD at 22:21 EDT , EKG Initial EKG: Attestation: I personally reviewed and interpreted this EKG as follows: Comments: Atrial fibrillation with rapid ventricular response at 108 bpm. Management Discussion w/another healthcare provider: Hospitalist (Dr Chavarria) Discharge Plan Triage Chief Complaint: Shortness of Breath ED Provider: Gaurang Mann Dx/Rx/DC Orders Prescriptions: No Action metformin 1,000 mg tablet 1,000 mg PO BID cholecalciferol (vitamin D3) 25 mcg (1,000 unit) capsule 25 mcg PO DAILY Combivent Respimat 20-100 mcg/actuation mist 1 puff inhalation BID Trelegy Ellipta 200-62.5-25 mcg blister with device 1 inh inhalation DAILY Qty: 60 6RF aspirin 81 MG tablet 81 mg PO DAILY simvastatin 40 MG tablet 40 mg PO QHS albuterol sulfate 1 PUFF inhaler 2 puff INHALATION Q4H PRN (Reason: SHORTNESS OF BREATH/WHEEZING ) imipramine HCl 25 MG tablet 25 - 50 mg PO QHS carvedilol 25 mg tablet 25 mg PO Q12H lisinopril 40 mg tablet 40 mg PO DAILY bupropion HCl 300 mg tablet extended release 24 hr 300 mg PO DAILY amlodipine 10 mg Tablet 10 mg PO DAILY Qty: 30 1RF (DME) Nebulizer machine See Rx Instructions .ROUTE .MEDSUPPLY Qty: 1 0RF Rx Instructions: As directed Primary Care Provider: Justin Bolden Referrals: Justin Bolden MD [Primary Care Provider] - Print Language: Slovak
--- NOTE | 2024-03-23 22:08 | RAD_ITS ---
INDICATION: copd EXAMINATION/TECHNIQUE: X-RAY - XR Chest 1 View COMPARISON: Prior study dated: 10/13/2023 FINDINGS: LINES/DEVICES: None. LUNGS: Low lung volumes. Small right-sided pleural effusion with basilar opacity. The left lung is clear. No pneumothorax. MEDIASTINUM AND CARDIOVASCULAR STRUCTURES: Cardiac silhouette not enlarged. Central airways and mediastinal contour are unremarkable. BONES AND SOFT TISSUES: No acute abnormality. RAD/Chest 1 View (Portable) IMPRESSION: Small right-sided pleural effusion with basilar opacity which could be atelectasis or pneumonia. Electronically Signed: Min Rees MD at 22:21 EDT ,
[2024-03-23] MEDS: Ibuprofen 600 MG Tablet PO (22:15)
[2024-03-23 22:23] LABS: Absolute Lymphocyte Count 1.93 X10^3/uL (0.83-4.51); Absolute Neutrophil Count 31.3 X10^3/uL (2.0-7.7); Basophil% 0.3 % (0-1); Eosinophil# 0.05 X10^3/uL; Eosinophils% 0.1 % (0-5); Hematocrit 35.8 % (37-47); Hemoglobin 11.8 g/dL (12.0-15.0); Lymphocyte # 1.93 X10^3/ul (0.83-4.51); Lymphocyte % 5.3 % (19-41); Mean Corpuscular Hgb 32.7 pg (27.0-32.0); Mean Corpuscular Volume 99.2 fL (81-99); Mean Platelet Vol. 12.5 fl (6.2-12.0); Monocyte# 2.46 X10^3/uL; Monocyte% 6.8 % (0-10); NRBC Flagged by Analyzer 0 % (0-5); Neutrophil # 31.27 X10^3/uL (2.7-7.7); Neutrophil % 86.3 % (47-70); POSITIVE COUNT YES; POSITIVE DIFFERENTIAL YES; Platelet Count 188 K/mm3 (150-450); RBC Distribution Width CV 12.8 % (11.6-14.6); RBC Distribution Width SD 46.3 fl (35.1-43.9); Red Blood Count 3.61 M/mm3 (4.2-5.4)
[2024-03-23 22:25] VITALS: PULSE 110; RESP 20; O2SAT 91
[2024-03-23] MEDS: Ipratropium/Albuterol Sulfate 3 ML AMPUL.NEB INHALATION (22:25)
[2024-03-23 22:40] LABS: Differential Indicated SCAN CRITERIA MET; White Blood Count 36.2 K/mm3 (4.4-11.0)
[2024-03-23 22:41] LABS: AST(SGOT) 14 U/L (15-37); Alanine Aminotransfer ALT/SGPT 33 U/L (13-56); Albumin, Serum 2.8 g/dL (3.2-5.0); Alkaline Phosphatase 77 U/L (45-117); Anion Gap 10 (5-15); BUN 25 mg/dL (7-18); BUN/Creat Ratio 19.7 RATIO (10-20); Calcium,Total 8.3 mg/dL (8.5-10.1); Chloride 103 mmol/L (98-107); Creatinine, Serum 1.27 mg/dL (0.55-1.02); EST Glomerular Filtration Rate 44 mL/min (>60); Est Glom Filt Rate - Afr Amer 53 mL/min (>60); Estimated Creatinine Clearance 47.27 ml/min; Globulin 3.7 g/dL (2.2-4.2); Glucose 154 mg/dL (74-106); Potassium 3.5 mmol/L (3.5-5.1); Protein, Total 6.5 g/dL (6.4-8.2); Sodium Level 138 mmol/L (136-145); Troponin-I HS 6 pg/mL (3.0-54.0)
[2024-03-23 22:49] LABS: Differential Comment SCANNED
[2024-03-23 22:53] VITALS: BP 115/68; PULSE 105; RESP 25; TEMP 37.2; O2SAT 90
[2024-03-23 22:55] LABS: Lactic Acid 2.8 mmol/L (0.4-1.9)
[2024-03-23 23:00] LABS: BNP,B-Type NATRIURETIC PEPTIDE 190.7 pg/mL (0-100)
--- NOTE | 2024-03-23 23:20 | CT_ITS ---
INDICATION: pneumonia pleural effusion EXAMINATION: CT CHEST WITHOUT CONTRAST - CT Chest W/O Contrast Injection TECHNIQUE: Helically acquired images were obtained of the chest. The protocol utilizes one or more of the following dose reduction techniques: automated exposure control, adjustment of mA and/or kV according to patient size,and/or use of iterative reconstruction technique. IV Contrast dosage and agent: None. RADIATION DOSAGE (If Supplied By Facility): CTDIvol = ( 20.15 ) mGy, DLP = ( 755.23 ) mGycm COMPARISON: Prior study dated: 10/13/2023 FINDINGS: LUNGS, PLEURA AND LARGE AIRWAYS: The central airways are patent. Filling defects of the right lower and middle lobe bronchi. Complete consolidation of the right middle lobe. Dependent right lower lobe opacity with small pleural effusion. There is a right upper lobe pulmonary nodule measuring 0.5 cm on series 2 image 42, unchanged. Left upper lobe central 0.9 cm nodule on series 2 image 32. This is unchanged. These were both present on the sixth 1121 study, without significant change. A posterior right upper lobe 0.3 cm nodule is also unchanged, series 2 image 28. Azygos fissure present. No pneumothorax. THYROID: No thyroid lesions. HEART AND PERICARDIUM: Prominent heart. No pericardial effusion. CORONARY ARTERIES: Coronary artery calcification is seen. VESSELS: Thoracic aorta is not dilated. MEDIASTINUM AND JARROD: Prominent subcarinal lymph node measures 1.4 cm short axis. This is increased from prior. Esophagus is unremarkable. No hiatal hernia. UPPER ABDOMEN: Left adrenal gland thickening, unchanged. Simple left renal cyst which requires no specific follow-up. BONES: No suspicious lytic or blastic abnormality. Degenerative change throughout the spine. DISH. CT/Chest without Contrast IMPRESSION: Right middle lobe consolidation consistent with pneumonia. Small right pleural effusion. Prominent mediastinal lymph nodes are likely reactive. Pulmonary nodules which appear unchanged from prior imaging, suggestive of benign etiology. Electronically Signed: Min Rees MD at 0:31 EDT ,
[2024-03-23] MEDS: Ceftriaxone 1 GM/50 ML BAG IV (23:21)
--- NOTE | 2024-03-23 23:32 | HP.PCM.HOS_ITS ---
HPI - General General Date of Admission: 03/23/24 Date of Service: 03/23/24 Chief Complaint: Dyspnea. HPI Narrative The patient is a 73 y/o F w/ PMHx: JONO using oxygen qHS only, CKD possible stage III unclear subtype, Morbid Obesity, HTN, HLD, Chronic COPD w/ Chronic Hypoxic Respiratory Failure (2-3L NC), Former tobacco use, Nonobstructive CAD/Nonischemic cardiomyopathy, Chronic anemia who presents to the [facility] ED on 03/23/24 with dyspnea worsening over the last 48 hours with onset of rhinorrhea, sore throat and cough starting the day prior with increased oxygen supplementation needs although she does note that her concentrator was having issues today prompting her to call the company with low oxygen levels into the 80s at home prompting EMS call with no recent increased lower extremity swelling or orthopnea but she has recently been more exposed to chemicals as they have been painting inside the house with no other ill contacts. Workup in the ED included T99.2, heart rate 117, BP 126/59, respiratory rate 23, 91% on 6 L nasal cannula normally on 2 L nasal cannula chronically with most recent repeat assessment T99, heart rate 105, BP 115/68, respiratory rate 25, 90% on 5 L nasal cannula, CBC with WBC 36.2, hemoglobin 0.8, MCV 99.2, platelet 188 with left shift, CMP with BUN/creatinine 25/1.27, GFR 44, glucose 154, lactic acid 2.8, hepatic profile not marked appearing, BNP 190.7, troponin 6, chest x-ray with small right-sided pleural effusion with basilar opacity possibly atelectasis versus pneumonia, blood culture x 2 pending per ED, rapid SARS COVID/influenza/RSV PCR negative, pending CT of the chest per ED physician upon requested evaluation patient. In the ED patient ministered DuoNeb therapy, Motrin 600 mg p.o. x 1, Zithromax 500 mg IV times 1 as well as Rocephin 1 g IV x 1. [facility] Medical History Chronic hypoxic respiratory failure, on home oxygen therapy Morbid obesity CKD (chronic kidney disease), stage III Sleep apnea Nonischemic cardiomyopathy Essential (primary) hypertension LBBB (left bundle branch block) COPD (chronic obstructive pulmonary disease) Hyperlipidemia Nicotine abuse Atherosclerotic heart disease of [place] coronary artery without angina pectoris Bronchitis Home Medications ?Medication ?Instructions ?Recorded ?Last Taken ?Type albuterol sulfate 90 mcg/actuation 2 puff inhalation Q4H PRN 10/02/16 Unknown History aerosol inhaler SHORTNESS OF BREATH/WHEEZING aspirin 81 mg tablet,delayed 81 mg PO DAILY HEART HEALTH 10/02/16 03/18/23 History release imipramine HCl 25 mg tablet 25 - 50 mg PO QHS BLADDER CONTROL 10/02/16 03/18/23 History simvastatin 40 mg tablet 40 mg PO QHS CHOLESTEROL 10/02/16 03/18/23 History Nebulizer machine #1 ea 09/15/23 Unknown Rx bupropion HCl 300 mg 24 hr tablet, 300 mg PO DAILY mental health 10/12/23 Unknown History extended release carvedilol 25 mg tablet 25 mg PO Q12H HEART 10/12/23 Unknown History lisinopril 40 mg tablet 40 mg PO DAILY blood pressure 10/12/23 Unknown History amlodipine 10 mg tablet 10 mg PO DAILY #30 tabs 10/14/23 Unknown Rx cholecalciferol (vitamin D3) 25 25 mcg PO DAILY 03/08/24 Unknown History mcg (1,000 unit) capsule fluticasone fur. 200 mcg-umeclid 1 inh inhalation DAILY #60 ea 03/08/24 Unknown Rx 62.5 mcg-vilant 25 mcg inhalat.powder (Trelegy Ellipta) ipratropium 20 mcg-albuterol 100 1 puff inhalation BID 03/08/24 Unknown History mcg/actuation mist for inhalation (Combivent Respimat) metformin 1,000 mg tablet 1,000 mg PO BID 03/08/24 Unknown History Allergy/AdvReac Type Severity Reaction Status Date / Time Iodinated Contrast Media Allergy Other Verified 03/23/24 21:30 (CONTRASTS) meperidine (From Demerol) Allergy Unknown Verified 03/23/24 21:30 Penicillins (PCN) Allergy Rash Verified 03/23/24 21:30 Family History Mother Hypertension Diabetes Father Cancer Surgical History History of colonoscopy with polypectomy History of total hip arthroplasty History of cholecystectomy History of cataract surgery History of appendectomy History of left heart catheterization (09/03/11) Social History household members: none Smoking Status: Former smoker quit date: 04/04/23 alcohol intake: current substance use type: does not use ROS ROS Narrative Admission Review of Systems: CONSTITUTIONAL: No weight loss, fever, chills, + weakness or fatigue. HEENT: Eyes: No visual loss, blurred vision, double vision or yellow sclerae. Ears, Nose, Throat: No hearing loss, sneezing, congestion, runny nose or sore throat. SKIN: No rash or itching, lesions, wounds. CARDIOVASCULAR: + Chronic edema. No chest pain, chest pressure or chest discomfort, palpitations, orthopnea, syncope. RESPIRATORY: + Acute on Chronic dyspnea primarily with exertion, cough without marked sputum. No wheezing or hemoptysis. GASTROINTESTINAL: No anorexia, nausea, vomiting or diarrhea, abdominal pain, melena, BRBPR. GENITOURINARY: No dysuria, frequency, urgency or retention. NEUROLOGICAL: No headache, lightheadedness, dizziness, syncopal events, paralysis, ataxia, numbness or tingling in the extremities, focal weakness, change in bowel or bladder control, seizure. MUSCULOSKELETAL: + muscle, back pain, joint pain or stiffness. HEMATOLOGIC: + Chronic anemia. No bleeding or bruising. LYMPHATICS: No enlarged nodes. No history of splenectomy. PSYCHIATRIC: No history of depression or anxiety. ENDOCRINOLOGIC: No reports of sweating, cold or heat intolerance. No polyuria or polydipsia. ALLERGIES: No history of asthma, hives, eczema or rhinitis. Vital Signs Vital Signs Vital Signs: 03/23/24 21:13 03/23/24 21:15 03/23/24 21:45 Temperature 99.2 F H 99.2 F H Temperature Source Oral Oral Pulse Rate 117 H 111 H Respiratory Rate 23 H 22 H Respiratory Effort Normal Non-Labored Respiratory Pattern Tachypnea Blood Pressure 126/59 H 126/59 H Blood Pressure Mean 81 81 Pulse Ox 91 92 Oxygen Delivery Method Nasal Cannula Nasal Cannula Oxygen Flow Rate (L/min) 6 6 03/23/24 21:46 03/23/24 22:25 03/23/24 22:25 Temperature 99.5 F H Temperature Source Oral Pulse Rate 120 H 110 H Respiratory Rate 24 H 20 H Respiratory Effort Respiratory Pattern Normal Blood Pressure 107/61 Blood Pressure Mean 76 Pulse Ox 91 91 Oxygen Delivery Method Nasal Cannula Nasal Cannula Oxygen Flow Rate (L/min) 5 5 03/23/24 22:53 Temperature 99 F Temperature Source Oral Pulse Rate 105 H Respiratory Rate 25 H Respiratory Effort Respiratory Pattern Blood Pressure 115/68 Blood Pressure Mean 83 Pulse Ox 90 Oxygen Delivery Method Nasal Cannula Oxygen Flow Rate (L/min) 5 Weight Weight: 237 lb 7.005 oz Body Mass Index (BMI) 40.7 Physical Exam Narrative Physical Examination: General: Awake, alert, oriented x 3 and cooperative, seated upright in the ED bed, fatigued, no acute distress, notes feeling improved with ED interventions with less than dyspnea sensation. Skin: Normal color, normal turgor, no icterus, no cyanosis except occasional staged abrasion, bilateral lower extremity stasis skin changes. HEENT: AT/NC, EOMI, PERRLA, mildly dry MM, no carotid bruits or JVD noted; however, very thickened neck makes evaluation difficult. Lungs: Diminished, distant, mildly increased respiratory rate but no distress, more prominent bilateral bases, right greater than left, currently no marked rales, rhonchi or wheezing. Heart: Irregular irregular; no gallop, rub audible. Abdomen: Soft, morbidly obese, NTTP, distant BS, difficult to discern distention and HSM given habitus. Extremities: No cyanosis, no clubbing, mild peripheral nonpitting edema distally in the bilateral lower extremity, see skin. Neurological: Patient awake, alert, oriented as noted, cognitive function intact; pupils equally reactive to light and accommodation, cranial nerves grossly normal, moving all 4 extremities, no focal deficits, strength severely global decreased secondary to acute presentation. Psychiatric: Affect appears flat, fatigued, ill-appearing, no acute evidence of depressive or anxiety feelings. Results Lab / Micro Data 03/23/24 22:10 03/23/24 22:10 Labs: Laboratory Results - last 24 hr 03/23/24 22:10: WBC 36.2 H*, RBC 3.61 L, Hgb 11.8 L, Hct 35.8 L, MCV 99.2 H, MCH 32.7 H, MCHC 33.0, RDW Std Deviation 46.3 H, RDW Coeff of [place] 12.8, Plt Count 188, MPV 12.5 H, Immature Gran % (Auto) 1.200 H, Neut % (Auto) 86.3 H, Lymph % (Auto) 5.3 L, [place] % (Auto) 6.8, Eos % (Auto) 0.1, Baso % (Auto) 0.3, Absolute Neuts (auto) 31.3 H, Absolute Lymphs (auto) 1.93, Nucleated RBC % 0, Differential Comment SCANNED, Diff Path Review May foll, Sodium 138, Potassium 3.5, Chloride 103, Carbon Dioxide 25.0, Anion Gap 10, BUN 25 H, Creatinine 1.27 H, Estim Creat Clear Calc 47.27, Est GFR (MDRD) Af Amer 53 L, Est GFR (MDRD) Non-Af 44 L, BUN/Creatinine Ratio 19.7, Glucose 154 H, Lactic Acid 2.8 H*, C alcium 8.3 L, Total Bilirubin 0.90, Direct Bilirubin 0.40 H, AST 14 L, ALT 33, Alkaline Phosphatase 77, Troponin I High Sens 6, B-Natriuretic Peptide 190.7 H, Total Protein 6.5, Albumin 2.8 L, Globulin 3.7 Micro: Microbiology 03/23/24 22:29 Mucosa - Nose SARS-CoV-2, Influenza & RSV (PCR) - Final Imaging Radiology Impression Chest X-Ray 03/23/24 22:08 IMPRESSION: Small right-sided pleural effusion with basilar opacity which could be atelectasis or pneumonia. Electronically Signed: Min Rees MD at 22:21 EDT Reading Location ID and State: [facility] / [place] Tel , Service support , Assessment & Plan Assessment/Plan (1) Acute and chronic respiratory failure with hypoxia: (2) Pneumonia: (3) New onset a-fib: PLAN: Plan The patient is a 73 y/o F w/ PMHx: JONO using oxygen qHS only, CKD possible stage III unclear subtype, Morbid Obesity, HTN, HLD, Chronic COPD w/ Chronic Hypoxic Respiratory Failure (2-3L NC), Former tobacco use, Nonobstructive CAD/Nonischemic cardiomyopathy, Chronic anemia who presents to the [facility] ED on 03/23/24 with dyspnea worsening over the last 48 hours with onset of rhinorrhea, sore throat and cough starting the day prior with increased oxygen supplementation needs although she does note that her concentrator was having issues today prompting her to call the company with low oxygen levels into the 80s at home prompting EMS call with no recent increased lower extremity swelling or orthopnea but she has recently been more exposed to chemicals as they have been painting inside the house with no other ill contacts. #1. Acute on Chronic Hypoxic secondary to Acute RML Pneumonia, Community Acquired with associated lactic acidosis suspected secondary to her hypoxemia: CXR in the ED w/ with small right sided pleural effusion with basilar opacity possibly atelectasis versus pneumonia with follow-up CT chest per ED with right middle lobe consolidation consistent with pneumonia, small right pleural effusion, prominent mediastinal lymph nodes likely reactive, pulmonary nodules unchanged from previous. Will admit to PCU given #2, maintain on oxygen with wean as tolerated to home oxygen which is normally 2 to 3 L nasal cannula supplementation, continue ATC budesonide with avoidance of albuterol and less absolutely necessary given #2, maintain on IV Rocephin and Azithromycin, MRSA screen requested, encourage HOB, IS parameters w/ pending sputum cultures and urine antigens. Bld cx x 2 obtained in the ED. PT/OT/case management consulted for discharge planning. #2. Paroxysmal atrial fibrillation w/ RVR, new onset as well as noted occasional ventricular tachycardia on monitor: EKG in ED w/ atrial fibrillation w/ RVR. Patient administered Cardizem 10 mg bolus in ED. Will maintain on telemetry, obtain cardiac enzyme serial set, obtain magnesium level, obtain ECHO, obtain TSH level. CHADs scoring appropriate for anticoagulation start at this time thus will initiate oral Eliquis regimen. Will dose with patient Coreg now however if ongoing issues may necessitate drip. #3. Chronic macrocytic anemia: Admission hemoglobin 1.8, MCV 99.2, baseline hemoglobin more recently has been lower at 12 range, will continue closely monitor and further investigate pending trending. #4. Nonobstructive CAD/nonischemic cardiomyopathy: Patient with single-vessel diagonal branch disease, nonobstructive, following with cardiology with last evaluation 08/28/2023 in the office, will continue aspirin, statin, Coreg, lisinopril home regimen. #5. Chronic COPD with chronic hypoxic respiratory failure (2-3L NC): Complicates presentation as noted above, will continue oxygen supplementation with wean as tolerated to home 2 to 3 L supplementation, maintain on ATC budesonide therapy, PRN albuterol only if absolutely needed given PAF with RVR presentation concurrently, HOB, IS parameters. #6. Hypertension: Continue home regimen including lisinopril, Coreg with dose upon admission given #2, PRN hydralazine. #7. Hyperlipidemia: We will continue patient on statin therapy. FLP in AM. #8. Chronic Kidney Disease Stage III unclear subtype per GFR trending: Admission BUN/Cr 25/1.27, GFR 44, baseline renal function has vacillated but appears 0.7-1.1, will repeat BMP in AM. #9. JONO: Patient does not use CPAP or BiPAP but only supplemental oxygen at night, will continue supplementation as noted above #1 with wean as tolerated to previous home level. #10. Morbid Obesity: Weight loss and lifestyle changes encouraged. #11. Former Tobacco Abuse: Encouraged continued tobacco cessation. #12. DVT prophylaxis: Eliquis given #2. #13. CODE status: Patient MIGUEL is her and she notes living will is in place. Discussed CODE status at length including difference between FULL code, DNR-CCA and DNR-CC status. Following discussions about the differences in these status, requested Full Code status. Advanced Care Planning Face to Face Time: 16 minutes. Charges/Coding Visit Charges Inpatient E&M: 90434 Init Hosp L3 Procedures Hospitalists Procedures: 40193 Advncd Care Plan 30 Min
[2024-03-23 23:45] VITALS: BP 113/58; PULSE 115; RESP 31; TEMP 37.2; O2SAT 92
[2024-03-24] VITALS (15 sets, daily range): BP systolic 109–157; BP diastolic 55–103; PULSE 64–109; RESP 17–28; TEMP 36.5–37.2; O2SAT 92–96; BMI 41.9
[2024-03-24] MEDS: dilTIAZem 25 MG/5 ML Vial 10 MG IV BOLUS (00:17)
[2024-03-24] MEDS: Azithromycin 500 MG in Dextrose 5%-Water (250mL Bag) 250 ML 250 MG IV ×2 (00:17→22:59)
[2024-03-24 00:36] LABS: Magnesium 0.9 mg/dL (1.6-2.6)
[2024-03-24] MEDS: Magnesium Sulfate 4gm/100mL 4 GM/100 ML IV.SOLN. IV (00:57)
--- NOTE | 2024-03-24 01:20 | ECHOD_ITS ---
Reason For Study: PAF Procedure This was a 2D Doppler, Color Flow transthoracic echocardiogram. The study was technically difficult. Definity declined by patient due to allergy. Exam performed portable in ED. Left Ventricle Mild concentric left ventricular hypertrophy. The left ventricular ejection fraction is 65 %. Diastolic function is indeterminate. Right Ventricle Normal right ventricle. Atria The left and right atria are normal. Mitral Valve Trivial mitral valve insufficiency. Tricuspid Valve The tricuspid valve is not well visualized. No tricuspid valve insufficiency. Aortic Valve Moderate calcification of the noncoronary cusp of the aortic valve. Mild aortic valve stenosis. Pulmonic Valve The pulmonic valve is not well visualized. Great Vessels The aortic root is not well visualized. Pericardium/Pleural No pericardial effusion. MMode/2D Measurements & Calculations LVIDd: 4.2 cm IVSd: 1.4 cm LAV(MOD-bp): 56.4 ml LVIDs: 2.4 cm LVPWd: 1.3 cm LAV(MOD-bp) Indexed: 26.8 ml/m2 FS: 42.3 % LAV(MOD-sp2): 47.1 ml LAV(MOD-sp4): 58.7 ml LA dimension(2D): 4.0 cm LA A4 area: 20.2 cm2 RA A4 area: 20.3 cm2 Time Measurements MV dec time: 0.27 sec Doppler Measurements & Calculations MV E max jose: 92.9 cm/sec Lat Peak E' Jose: 9.3 cm/sec Med Peak E' Jose: 8.6 cm/sec MV A max jose: 88.8 cm/sec E/E' lat: 10.0 E/E' med: 10.8 MV E/A: 1.0 MV V2 max: 97.0 cm/sec MV dec slope: 341.7 cm/sec2 Ao V2 max: 203.0 cm/sec MV max P.8 mmHg Ao max P.5 mmHg MV V2 mean: 63.2 cm/sec Ao V2 mean: 136.6 cm/sec MV mean P.8 mmHg Ao mean P.7 mmHg MV V2 VTI: 31.1 cm Ao V2 VTI: 46.0 cm ECHO/Echo Complete Interpretation Summary The study was technically difficult. Mild concentric left ventricular hypertrophy. The left ventricular ejection fraction is 65 %. Moderate calcification of the noncoronary cusp of the aortic valve. Mild aortic valve stenosis. Ordering Physician: Chantelle Chavarria Referring Physician: Justin Bolden Performed By: Toshia Orr and Student
[2024-03-24 01:34] LABS: International Normalized Ratio 1.4; Prothrombin Time (Protime)PT. 17.2 SECONDS (11.7-14.9)
[2024-03-24 01:35] LABS: Partial Thromboplast Time 32.7 Seconds (24.1-36.2)
[2024-03-24] MEDS: 0.9% Normal Saline (1000mL) 1,000 ML 100 ML IV (02:01)
[2024-03-24] MEDS: APIXABAN 5 MG TABLET PO ×3 (02:02→22:58)
[2024-03-24] MEDS: Carvedilol 25 MG Tablet PO ×3 (02:02→22:58)
[2024-03-24] MEDS: Atorvastatin Calcium 20 MG Tablet PO ×2 (02:03→22:58)
[2024-03-24] MEDS: Imipramine HCl 25 MG Tablet PO ×2 (02:03→22:58)
[2024-03-24 02:18] LABS: Reflex Lactate? Y
[2024-03-24 03:07] LABS: Lactic Acid 1.9 mmol/L (0.4-1.9)
[2024-03-24 06:38] LABS: Bedside Glucose 145 mg/dL (74-106)
[2024-03-24] MEDS: Budesonide Respules 0.5 MG/2 ML AMPUL.NEB. INHALATION (07:37)
[2024-03-24 07:48] LABS: Absolute Lymphocyte Count 1.35 X10^3/uL (0.83-4.51); Absolute Neutrophil Count 24.6 X10^3/uL (2.0-7.7); Basophil# 0.09 X10^3/uL; Basophil% 0.3 % (0-1); Eosinophil# 0.18 X10^3/uL; Eosinophils% 0.6 % (0-5); Hematocrit 31.9 % (37-47); Hemoglobin 10.4 g/dL (12.0-15.0); Lymphocyte # 1.35 X10^3/ul (0.83-4.51); Lymphocyte % 4.8 % (19-41); Mean Corp Hgb Conc 32.6 g/dL (32-36); Mean Corpuscular Hgb 32.7 pg (27.0-32.0); Mean Corpuscular Volume 100.3 fL (81-99); Mean Platelet Vol. 11.6 fl (6.2-12.0); Monocyte# 1.76 X10^3/uL; Monocyte% 6.2 % (0-10); NRBC Flagged by Analyzer 0 % (0-5); Neutrophil # 24.59 X10^3/uL (2.7-7.7); Neutrophil % 86.7 % (47-70); POSITIVE DIFFERENTIAL YES; Platelet Count 146 K/mm3 (150-450); RBC Distribution Width CV 12.8 % (11.6-14.6); RBC Distribution Width SD 46.9 fl (35.1-43.9); Red Blood Count 3.18 M/mm3 (4.2-5.4); White Blood Count 28.4 K/mm3 (4.4-11.0)
[2024-03-24] MEDS: amLODIPine 10 MG Tablet PO (08:04)
[2024-03-24] MEDS: Aspirin E.C. 81 MG Tablet PO (08:05)
[2024-03-24] MEDS: buPROPion (XL) 300 MG TABLET.XL PO (08:05)
[2024-03-24] MEDS: Lisinopril 40 MG Tablet PO (08:05)
[2024-03-24 08:07] LABS: Troponin-I HS 17 pg/mL (3.0-54.0)
[2024-03-24] MEDS: guaiFENesin 10 ML UDC (200MG/10ML) 20 ML PO (08:09)
[2024-03-24 08:24] LABS: Differential Indicated SCAN CRITERIA MET
[2024-03-24 09:42] LABS: Troponin-I HS 14 pg/mL (3.0-54.0)
[2024-03-24 11:14] LABS: Differential Comment SCANNED
[2024-03-24 11:45] LABS: ALB/GLOB Ratio 0.9 RATIO (0.9-2.4); AST(SGOT) 15 U/L (15-37); Alanine Aminotransfer ALT/SGPT 28 U/L (13-56); Albumin, Serum 2.6 g/dL (3.2-5.0); Alkaline Phosphatase 76 U/L (45-117); Anion Gap 10 (5-15); BUN 24 mg/dL (7-18); Calcium,Total 7.9 mg/dL (8.5-10.1); Chloride 105 mmol/L (98-107); Creatinine, Serum 1.09 mg/dL (0.55-1.02); EST Glomerular Filtration Rate 52 mL/min (>60); Est Glom Filt Rate - Afr Amer 63 mL/min (>60); Estimated Creatinine Clearance 56.15 ml/min; Globulin 2.8 g/dL (2.2-4.2); Glucose 123 mg/dL (74-106); Magnesium 1.9 mg/dL (1.6-2.6); Potassium 3.5 mmol/L (3.5-5.1); Protein, Total 5.4 g/dL (6.4-8.2); Sodium Level 140 mmol/L (136-145)
[2024-03-24] MEDS: Insulin Lispro 100 UNIT/ML INSULN.PEN SC ×3 (11:45→23:07)
[2024-03-24 11:54] LABS: Bedside Glucose 189 mg/dL (74-106)
[2024-03-24 13:43] LABS: Troponin-I HS 12 pg/mL (3.0-54.0)
--- NOTE | 2024-03-24 14:35 | PCM.PN.HOSP ---
Reason for Visit Reason for Visit: Diagnoses Unspecified atrial fibrillation (03/23/24) Pneumonia, unspecified organism (03/23/24) Acute and chronic respiratory failure with hypoxia (03/23/24) Objective Data Objective Data Vital Signs: Vital Signs Temp Pulse Resp BP Pulse Ox O2 Del Method O2 Flow Rate 98.7 F 70 21 H 133/72 H 92 High Flow 6 03/24/24 12:59 03/24/24 12:59 03/24/24 12:59 03/24/24 12:59 03/24/24 12:59 03/24/24 12:59 03/24/24 12:59 Oxygen Flow Rate (L/min) 6 Oxygen Delivery Method High Flow Weight: 245 lb 9.519 oz Body Mass Index (BMI) 41.9 Intake & Output: Intake and Output for Last 24 Hours 03/22/24 03/23/24 03/24/24 23:59 23:59 23:59 Intake Total 50 / 50 1555 / 1555 Balance 50 / 50 1555 / 1555 Lab / Micro Data 03/24/24 07:34 03/24/24 07:34 Labs: Laboratory Results - last 24 hr 03/23/24 22:10: WBC 36.2 H*, RBC 3.61 L, Hgb 11.8 L, Hct 35.8 L, MCV 99.2 H, MCH 32.7 H, MCHC 33.0, RDW Std Deviation 46.3 H, RDW Coeff of [place] 12.8, Plt Count 188, MPV 12.5 H, Immature Gran % (Auto) 1.200 H, Neut % (Auto) 86.3 H, Lymph % (Auto) 5.3 L, [place] % (Auto) 6.8, Eos % (Auto) 0.1, Baso % (Auto) 0.3, Absolute Neuts (auto) 31.3 H, Absolute Lymphs (auto) 1.93, Nucleated RBC % 0, Differential Comment SCANNED, Diff Path Review November, Sodium 138, Potassium 3.5, Chloride 103, Carbon Dioxide 25.0, Anion Gap 10, BUN 25 H, Creatinine 1.27 H, Estim Creat Clear Calc 47.27, Est GFR (MDRD) Af Amer 53 L, Est GFR (MDRD) Non-Af 44 L, BUN/Creatinine Ratio 19.7, Glucose 154 H, Lactic Acid 2.8 H*, Calcium 8.3 L, Magnesium 0.9 L*, Total Bilirubin 0.90, Direct Bilirubin 0.40 H, AST 14 L, ALT 33, Alkaline Phosphatase 77, Troponin I High Sens 6, B-Natriuretic Peptide 190.7 H, Total Protein 6.5, Albumin 2.8 L, Globulin 3.7 03/24/24 01:04: PT 17.2 H, INR 1.4, APTT 32.7 03/24/24 02:22: Lactic Acid 1.9 03/24/24 06:21: POC Glucose 145 H 03/24/24 07:34: WBC 28.4 H, RBC 3.18 L, Hgb 10.4 L, Hct 31.9 L, MCV 100.3 H, MCH 32.7 H, MCHC 32.6, RDW Std Deviation 46.9 H, RDW Coeff of [place] 12.8, Plt Count 146 L, MPV 11.6, Immature Gran % (Auto) 1.400 H, Neut % (Auto) 86.7 H, Lymph % (Auto) 4.8 L, [place] % (Auto) 6.2, Eos % (Auto) 0.6, Baso % (Auto) 0.3, Absolute Neuts (auto) 24.6 H, Absolute Lymphs (auto) 1.35, Nucleated RBC % 0, Differential Comment SCANNED, Diff Path Review November, Sodium 140, Potassium 3.5, Chloride 105, Carbon Dioxide 25.0, Anion Gap 10, BUN 24 H, Creatinine 1.09 H, Estim Creat Clear Calc 56.15, Est GFR (MDRD) Af Amer 63, Est GFR (MDRD) Non-Af 52 L, BUN/Creatinine Ratio 22.0 H, Glucose 123 H, Calcium 7.9 L, Magnesium 1.9, Total Bilirubin 0.60, AST 15, ALT 28, Alkaline Phosphatase 76, Troponin I High Sens 17, Total Protein 5.4 L, Albumin 2.6 L, Globulin 2.8, Albumin/Globulin Ratio 0.9, TSH 1.010 03/24/24 09:20: Troponin I High Sens 14 03/24/24 11:35: POC Glucose 189 H 03/24/24 13:10: Troponin I High Sens 12 Micro: Microbiology 03/24/24 06:22 Urine, Clean Catch Legionella Antigen - Final 03/24/24 06:22 Urine, Clean Catch Streptococcus pneumoniae Antigen (M - Final 03/24/24 02:53 Nasal Secretion MRSA (PCR) - Final 03/24/24 02:53 Mucosa - Nose Respiratory Panel (PCR) - Final 03/23/24 22:29 Mucosa - Nose SARS-CoV-2, Influenza & RSV (PCR) - Final Radiography Diagnostic Testing: Radiology Impression Chest X-Ray 03/23/24 22:08 IMPRESSION: Small right-sided pleural effusion with basilar opacity which could be atelectasis or pneumonia. Electronically Signed: Min Rees MD at 22:21 EDT , Chest CT 03/23/24 23:20 IMPRESSION: Right middle lobe consolidation consistent with pneumonia. Small right pleural effusion. Prominent mediastinal lymph nodes are likely reactive. Pulmonary nodules which appear unchanged from prior imaging, suggestive of benign etiology. Electronically Signed: Min Rees MD at 0:31 EDT , Physical Exam Narrative Seen and examined. As per the nursing staff report, patient had a choking event in the morning while having toast. Patient states he has mild dysphagia for last 2 to 3 years and it happens randomly sometime once in a month or once in 3 months. It can happen with any solid food but not liquid food. GI consulted Earlier patient was admitted with shortness of breath, cough with no change in symptoms. No fever. Physical exam General: Alert, Oriented x3, Cooperative HEENT: Atraumatic, PERRLA, EOMI, Normocephalic Oral: No Gingival or Mucosal Lesions/ Ulcerations Neck: Supple, No JVD, Negative Carotid Bruits Chest wall/Lungs: Air entry diminished in bilateral lung bases. Mild bilateral coarse crepitations and rhonchi Cardiovascular: Irregular rhythm, Normal S1, Normal S2, No M/G/R Abdomen: Bowel Sounds Present, Soft, Non Tender, Non-Distended : No dysuria. No renal angle tenderness. No suprapubic tenderness. Extremities: No edema, Capillary Refill Less than 3 Seconds Skin: No rashes, No breakdown Musculoskeletal: No Tenderness to Palpation of Joints or Extremities Neurological: Cranial nerves II-XII grossly intact, DTR 2+/4. No acute focal neurological deficit. Psych/Mental Status: Flat affect. Assessment & Plan Assessment/Plan (1) Acute and chronic respiratory failure with hypoxia: (2) Pneumonia: (3) New onset a-fib: PLAN: Plan The patient is a 73 y/o F was admitted with shortness of breath worsening over 2 to 3 days with URI symptoms of rhinorrhea or sore throat and cough for 3 to 4 days with increased oxygen requirement. In ED found to have right lower lobe pneumonia. #1. Acute on Chronic Hypoxic secondary to Acute RML Pneumonia, Community Acquired with associated lactic acidosis suspected secondary to her hypoxemia: Patient is being admitted in PCU status but currently in ED. On baseline 2 to 3 L of oxygen at night with CPAP. Chest x-ray and states CT initially reviewed and shows right lower lobe consolidation with small right pleural effusion. Started on IV antibiotic ceftriaxone and azithromycin. Pneumonia infectious workup so far negative including respiratory panel, urinary antigen, MRSA nasal screen and triple PCR for SARS-CoV-2, flu and RSV are negative #2. Paroxysmal atrial fibrillation w/ RVR, new onset with PVCs: EKG in ED w/ atrial fibrillation w/ RVR. Patient administered Cardizem 10 mg bolus in ED. cardiac enzymes negative. BNP slightly elevated. CHADVASC score is high therefore started on Eliquis. Rate controlled with carvedilol. #3. Chronic macrocytic anemia: Admission hemoglobin 11.8, MCV 99.2, baseline hemoglobin more recently has been lower at 12 range. No acute issues #4. Nonobstructive CAD/nonischemic cardiomyopathy: Patient with single-vessel diagonal branch disease, nonobstructive, following with cardiology with last evaluation 08/28/2023 in the office, continue aspirin, statin, Coreg, lisinopril home regimen. #5. Mild COPD exacerbation with chronic hypoxic respiratory failure (2-3L NC) due to pneumonia: Patient complained that he has increased shortness of breath for about 2 to 3 days along with cough but no change in his sputum. continue oxygen supplementation with wean as tolerated to home 2 to 3 L supplementation. Patient is being managed on scheduled bronchodilator, IV Solu-Medrol, Mucinex, incentive spirometry and Pep. #6. Hypertension: Continue home regimen including lisinopril, Coreg and IV as needed Daniel. #7. Hyperlipidemia: We will continue patient on statin therapy. FLP #8. Chronic Kidney Disease Stage IIIa : Admission BUN/Cr 25/1.27, GFR 44, baseline r appears 0.7-1.1, repeat creatinine shows 1.09, BUN 24. #9. JONO: Patient does not use CPAP or BiPAP but only supplemental oxygen at night, will continue supplementation as noted above #1 with wean as tolerated to previous home level. #10. Morbid Obesity: Weight loss and lifestyle changes encouraged. #11. Former Tobacco Abuse: Encouraged continued tobacco cessation. #12. Hyperglycemia: Glucose in BMP elevated 154, 189. Accu-Chek AC incorrigible sliding scale. A1c tomorrow AM 13. Electrolyte abnormality: Serum magnesium level, 0.9. Hypomagnesemia, magnesium sulfate replaced. Repeat magnesium 1.9. CODE status: Patient MIGUEL is her and she notes living will is in place. Discussed CODE status at length including difference between FULL code, DNR-CCA and DNR-CC status. Following discussions about the differences in these status, requested Full Code status. Charges/Coding Visit Charges Inpatient E&M: 99499 Subs Hosp L2
--- NOTE | 2024-03-24 14:48 | CASEMGMT ---
RN CM to ER to complete assessment. Pt getting echo and RN CM asked to return at a later time. Updated Milka HANEY CM.
[2024-03-24 15:08] LABS: Pathologist Review Reviewed
[2024-03-24] MEDS: Insulin Glargine-YFGN 100 UNIT/ML Pen 10 UNIT SC (16:14)
[2024-03-24] MEDS: guaiFENesin/D-Methorphan TAB.SR.12H 1 TABLET PO ×2 (16:14→22:57)
[2024-03-24 16:34] LABS: Bedside Glucose 199 mg/dL (74-106)
[2024-03-24] MEDS: Ipratropium/Albuterol Sulfate 3 ML AMPUL.NEB INHALATION (19:26)
[2024-03-24] MEDS: Ceftriaxone 1 GM/50 ML BAG IV (22:52)
[2024-03-24] MEDS: Senna/Docusate Sodium 1 Tablet 2 TABLET PO (22:57)
[2024-03-24 23:57] LABS: Bedside Glucose 191 mg/dL (74-106)
[2024-03-25] VITALS (14 sets, daily range): BP systolic 121–138; BP diastolic 54–90; PULSE 64–78; RESP 14–24; TEMP 36.1–36.6; O2SAT 88–95; BMI 41.8
[2024-03-25 06:19] LABS: Absolute Lymphocyte Count 0.97 X10^3/uL (0.83-4.51); Absolute Neutrophil Count 23.9 X10^3/uL (2.0-7.7); Basophil# 0.04 X10^3/uL; Basophil% 0.2 % (0-1); Hematocrit 33.5 % (37-47); Hemoglobin 10.9 g/dL (12.0-15.0); Lymphocyte # 0.97 X10^3/ul (0.83-4.51); Lymphocyte % 3.7 % (19-41); Mean Corp Hgb Conc 32.5 g/dL (32-36); Mean Corpuscular Hgb 32.4 pg (27.0-32.0); Mean Corpuscular Volume 99.7 fL (81-99); Mean Platelet Vol. 12.6 fl (6.2-12.0); Monocyte% 2.7 % (0-10); NRBC Flagged by Analyzer 0 % (0-5); Neutrophil # 23.86 X10^3/uL (2.7-7.7); Neutrophil % 91.8 % (47-70); POSITIVE DIFFERENTIAL YES; Platelet Count 172 K/mm3 (150-450); RBC Distribution Width CV 12.6 % (11.6-14.6); RBC Distribution Width SD 45.6 fl (35.1-43.9); Red Blood Count 3.36 M/mm3 (4.2-5.4)
[2024-03-25] MEDS: Insulin Lispro 100 UNIT/ML INSULN.PEN SC ×3 (06:25→22:25)
[2024-03-25 06:36] LABS: Differential Indicated SCAN CRITERIA MET
[2024-03-25] MEDS: Ipratropium/Albuterol Sulfate 3 ML AMPUL.NEB INHALATION ×2 (06:55→19:31)
[2024-03-25 07:08] LABS: Anion Gap 8 (5-15); BUN 20 mg/dL (7-18); BUN/Creat Ratio 22.8 RATIO (10-20); Calcium,Total 8.3 mg/dL (8.5-10.1); Chloride 105 mmol/L (98-107); Cholesterol 107 mg/dL (200); Creatinine, Serum 0.88 mg/dL (0.55-1.02); EST Glomerular Filtration Rate 67 mL/min (>60); Est Glom Filt Rate - Afr Amer 81 mL/min (>60); Estimated Creatinine Clearance 69.48 ml/min; Glucose 168 mg/dL (74-106); High Density Lipoprotein 61 mg/dL; Potassium 3.6 mmol/L (3.5-5.1); Sodium Level 139 mmol/L (136-145); Triglycerides 68 mg/dL; Very Low Density Lipoprotein 14 mg/dL (5-40)
[2024-03-25 07:09] LABS: Bedside Glucose 170 mg/dL (74-106)
[2024-03-25 08:32] LABS: Hemoglobin A1c 5.5 % (3.8-5.6)
--- NOTE | 2024-03-25 09:48 | PCM.PN.HOSP ---
Reason for Visit Reason for Visit: Diagnoses Unspecified atrial fibrillation (03/23/24) Pneumonia, unspecified organism (03/23/24) Acute and chronic respiratory failure with hypoxia (03/23/24) Objective Data Objective Data Vital Signs: Vital Signs Temp Pulse Resp BP Pulse Ox O2 Del Method O2 Flow Rate 97.6 F L 78 20 H 128/62 H 95 Nasal Cannula 5 03/25/24 02:30 03/25/24 06:55 03/25/24 06:55 03/25/24 02:30 03/25/24 06:55 03/25/24 06:55 03/25/24 06:55 Oxygen Flow Rate (L/min) 5 Oxygen Delivery Method Nasal Cannula Weight: 245 lb 2.464 oz Body Mass Index (BMI) 41.8 Intake & Output: Intake and Output for Last 24 Hours 03/23/24 03/24/24 03/25/24 23:59 23:59 23:59 Intake Total 50 / 50 1555 / 1555 305 / 305 Balance 50 / 50 1555 / 1555 305 / 305 Lab / Micro Data 03/25/24 05:44 03/25/24 05:44 Labs: Laboratory Results - last 24 hr 03/23/24 22:10: Diff Path Review Reviewed 03/24/24 07:34: Differential Comment SCANNED, Diff Path Review November, Sodium 140, Potassium 3.5, Chloride 105, Carbon Dioxide 25.0, Anion Gap 10, BUN 24 H, Creatinine 1.09 H, Estim Creat Clear Calc 56.15, Est GFR (MDRD) Af Amer 63, Est GFR (MDRD) Non-Af 52 L, BUN/Creatinine Ratio 22.0 H, Glucose 123 H, Calcium 7.9 L, Magnesium 1.9, Total Bilirubin 0.60, AST 15, ALT 28, Alkaline Phosphatase 76, Total Protein 5.4 L, Albumin 2.6 L, Globulin 2.8, Albumin/Globulin Ratio 0.9, TSH 1.010 03/24/24 11:35: POC Glucose 189 H 03/24/24 13:10: Troponin I High Sens 12 03/24/24 16:08: POC Glucose 199 H 03/24/24 23:05: POC Glucose 191 H 03/25/24 05:44: WBC 26.0 H, RBC 3.36 L, Hgb 10.9 L, Hct 33.5 L, MCV 99.7 H, MCH 32.4 H, MCHC 32.5, RDW Std Deviation 45.6 H, RDW Coeff of [place] 12.6, Plt Count 172, MPV 12.6 H, Immature Gran % (Auto) 1.600 H, Neut % (Auto) 91.8 H, Lymph % (Auto) 3.7 L, [place] % (Auto) 2.7, Eos % (Auto) 0.0, Baso % (Auto) 0.2, Absolute Neuts (auto) 23.9 H, Absolute Lymphs (auto) 0.97, Nucleated RBC % 0, Sodium 139, Potassium 3.6, Chloride 105, Carbon Dioxide 26.0, Anion Gap 8, BUN 20 H, Creatinine 0.88, Estim Creat Clear Calc 69.48, Est GFR (MDRD) Af Amer 81, Est GFR (MDRD) Non-Af 67, BUN/Creatinine Ratio 22.8 H, Glucose 168 H, Hemoglobin A1c 5.5, Calcium 8.3 L, Triglycerides 68, Cholesterol 107, LDL Cholesterol 32, VLDL Cholesterol 14, HDL Cholesterol 61 03/25/24 06:23: POC Glucose 170 H Micro: Microbiology 03/24/24 10:10 Sputum, Expectorated/Coughed Gram Stain - Final 03/24/24 06:22 Urine, Clean Catch Legionella Antigen - Final 03/24/24 06:22 Urine, Clean Catch Streptococcus pneumoniae Antigen (M - Final 03/24/24 02:53 Nasal Secretion MRSA (PCR) - Final 03/24/24 02:53 Mucosa - Nose Respiratory Panel (PCR) - Final 03/23/24 22:29 Mucosa - Nose SARS-CoV-2, Influenza & RSV (PCR) - Final Radiography Diagnostic Testing: Radiology Impression Echocardiogram 03/24/24 01:20 Interpretation Summary The study was technically difficult. Mild concentric left ventricular hypertrophy. The left ventricular ejection fraction is 65 %. Moderate calcification of the noncoronary cusp of the aortic valve. Mild aortic valve stenosis. Ordering Physician: Chantelle Chavarria Referring Physician: Justin Bolden Performed By: Tohsia Orr and Student Physical Exam Narrative Seen and examined. As per the nursing staff report, patient had a choking event yesterday on the toast and intermittent dysphagia. Went for swallow study/BMS Earlier patient was admitted with shortness of breath, cough with no change in symptoms. No fever. Physical exam General: Alert, Oriented x3, Cooperative HEENT: Atraumatic, PERRLA, EOMI, Normocephalic Oral: No Gingival or Mucosal Lesions/ Ulcerations Neck: Supple, No JVD, Negative Carotid Bruits Chest wall/Lungs: Air entry diminished in bilateral lung bases. Mild expiratory wheezing but much improved compared to yesterday Cardiovascular: Irregular rhythm, Normal S1, Normal S2, No M/G/R Abdomen: Bowel Sounds Present, Soft, Non Tender, Non-Distended : No dysuria. No renal angle tenderness. No suprapubic tenderness. Extremities: No edema, Capillary Refill Less than 3 Seconds Skin: No rashes, No breakdown Musculoskeletal: No Tenderness to Palpation of Joints or Extremities Neurological: Cranial nerves II-XII grossly intact, DTR 2+/4. No acute focal neurological deficit. Psych/Mental Status: Flat affect. Assessment & Plan Assessment/Plan (1) Acute and chronic respiratory failure with hypoxia: (2) Pneumonia: (3) New onset a-fib: PLAN: Plan The patient is a 73 y/o F was admitted with shortness of breath worsening over 2 to 3 days with URI symptoms of rhinorrhea or sore throat and cough for 3 to 4 days with increased oxygen requirement. In ED found to have right lower lobe pneumonia. #1. Acute on Chronic Hypoxic secondary to Acute RML Pneumonia, Community Acquired with associated lactic acidosis suspected secondary to her hypoxemia: Patient is being admitted in PCU status but currently in ED. On baseline 2 to 3 L of oxygen at night with CPAP. Chest x-ray and states CT initially reviewed and shows right lower lobe consolidation with small right pleural effusion. Started on IV antibiotic ceftriaxone and azithromycin. Pneumonia infectious workup so far negative including respiratory panel, urinary antigen, and triple PCR for SARS-CoV-2, flu and RSV are negative 03/25/2024: Prelim sputum culture growing 2+ GPC, 2+ GPR. ID consult requested and discussed with him. Patient already had echo which did not show vegetation. No further need for SRINIVASA. Vancomycin added and Zithromax discontinued. 2. Mild esophageal dysphagia: Patient states he has mild dysphagia for last 2 to 3 years and it happens randomly sometime once in a month or once in 3 months. It can happen with any solid food but not liquid food. GI consulted. Had EGD suspected motility disorder EGD 03/25/2020 Impressions : - LA Grade C reflux esophagitis with no bleeding. Biopsied. - Abnormal esophageal motility, suspicious for achalasia. Dilated. - Hematin (altered blood/bhpfja-vhhdfy-wnjq material) in the gastric fundus, in the gastric body and in the cardia. - Gastritis. - No gross lesions in the first portion of the duodenum. Recommendations : - [facility] to [facility] for [facility]. - Resume regular diet. - Continue present medications. - Await pathology results. #2. Paroxysmal atrial fibrillation w/ RVR, new onset with PVCs: EKG in ED w/ atrial fibrillation w/ RVR. Patient administered Cardizem 10 mg bolus in ED. cardiac enzymes negative. BNP slightly elevated. CHADVASC score is high therefore started on Eliquis. Rate controlled with carvedilol. 03/25: 2D echo shows EF 65% with mild aortic stenosis and calcification in noncoronary cusp of aortic valve. #3. Chronic macrocytic anemia: Admission hemoglobin 11.8, MCV 99.2, baseline hemoglobin more recently has been lower at 12 range. No acute issues 03/25 H&H at baseline. #4. Nonobstructive CAD/nonischemic cardiomyopathy: Patient with single-vessel diagonal branch disease, nonobstructive, following with cardiology with last evaluation 08/28/2023 in the office, continue aspirin, statin, Coreg, lisinopril home regimen. #5. Mild COPD exacerbation with chronic hypoxic respiratory failure (2-3L NC) due to pneumonia: Patient complained that he has increased shortness of breath for about 2 to 3 days along with cough but no change in his sputum. continue oxygen supplementation with wean as tolerated to home 2 to 3 L supplementation. Patient is being managed on scheduled bronchodilator, IV Solu-Medrol, Mucinex, incentive spirometry and Pep. 03/25: Shortness of breath and wheezing better. #6. Hypertension: Continue home regimen including lisinopril, Coreg and IV as needed Daniel. #7. Hyperlipidemia: We will continue patient on statin therapy. FLP #8. Chronic Kidney Disease Stage IIIa : Admission BUN/Cr 25/1.27, GFR 44, baseline r appears 0.7-1.1, repeat creatinine shows 1.09, BUN 24. #9. JONO: Patient does not use CPAP or BiPAP but only supplemental oxygen at night, will continue supplementation as noted above #1 with wean as tolerated to previous home level. #10. Morbid Obesity: Weight loss and lifestyle changes encouraged. #11. Former Tobacco Abuse: Encouraged continued tobacco cessation. #12. Hyperglycemia: Glucose in BMP elevated 154, 189. Accu-Chek AC incorrigible sliding scale. A1c tomorrow AM 13. Electrolyte abnormality: Serum magnesium level, 0.9. Hypomagnesemia, magnesium sulfate replaced. Repeat magnesium 1.9. CODE status: Patient MIGUEL is her and she notes living will is in place. Discussed CODE status at length including difference between FULL code, DNR-CCA and DNR-CC status. Following discussions about the differences in these status, requested Full Code status. Clinical Impression(s) from Imaging Studies Chest X-Ray 03/23/24 22:08 IMPRESSION: Small right-sided pleural effusion with basilar opacity which could be atelectasis or pneumonia. Electronically Signed: Min Rees MD at 22:21 EDT , Chest CT 03/23/24 23:20 IMPRESSION: Right middle lobe consolidation consistent with pneumonia. Small right pleural effusion. Prominent mediastinal lymph nodes are likely reactive. Pulmonary nodules which appear unchanged from prior imaging, suggestive of benign etiology. Electronically Signed: Min Rees MD at 0:31 EDT , Echocardiogram 03/24/24 01:20 Interpretation Summary The study was technically difficult. Mild concentric left ventricular hypertrophy. The left ventricular ejection fraction is 65 %. Moderate calcification of the noncoronary cusp of the aortic valve. Mild aortic valve stenosis. Ordering Physician: Chantelle Chavarria Referring Physician: Justin Bolden Performed By: Toshia Orr and Student Microbiology Past 72 Hours 03/24/24 10:10 Sputum, Expectorated/Coughed Gram Stain - Final 03/24/24 10:10 Sputum, Expectorated/Coughed Respiratory Culture - Preliminary Staphylococcus aureus 03/24/24 06:22 Urine, Clean Catch Legionella Antigen - Final 03/24/24 06:22 Urine, Clean Catch Streptococcus pneumoniae Antigen (M - Final 03/24/24 02:53 Nasal Secretion MRSA (PCR) - Final 03/24/24 02:53 Mucosa - Nose Respiratory Panel (PCR) - Final 03/23/24 22:29 Mucosa - Nose SARS-CoV-2, Influenza & RSV (PCR) - Final Laboratory Results 03/24/24 07:34: Diff Path Review Reviewed 03/24/24 16:08: POC Glucose 199 H 03/24/24 23:05: POC Glucose 191 H 03/25/24 05:44: WBC 26.0 H, RBC 3.36 L, Hgb 10.9 L, Hct 33.5 L, MCV 99.7 H, MCH 32.4 H, MCHC 32.5, RDW Std Deviation 45.6 H, RDW Coeff of [place] 12.6, Plt Count 172, MPV 12.6 H, Immature Gran % (Auto) 1.600 H, Neut % (Auto) 91.8 H, Lymph % (Auto) 3.7 L, [place] % (Auto) 2.7, Eos % (Auto) 0.0, Baso % (Auto) 0.2, Absolute Neuts (auto) 23.9 H, Absolute Lymphs (auto) 0.97, Nucleated RBC % 0, Sodium 139, Potassium 3.6, Chloride 105, Carbon Dioxide 26.0, Anion Gap 8, BUN 20 H, Creatinine 0.88, Estim Creat Clear Calc 69.48, Est GFR (MDRD) Af Amer 81, Est GFR (MDRD) Non-Af 67, BUN/Creatinine Ratio 22.8 H, Glucose 168 H, Hemoglobin A1c 5.5, Calcium 8.3 L, Triglycerides 68, Cholesterol 107, LDL Cholesterol 32, VLDL Cholesterol 14, HDL Cholesterol 61 03/25/24 06:23: POC Glucose 170 H 03/25/24 10:52: POC Glucose 162 H Charges/Coding Visit Charges Inpatient E&M: 33811 Subs Hosp L2
--- NOTE | 2024-03-25 10:21 | CASEMGMT ---
MEDINA LANDIN Assessment Face to Face with patient for initial transition planning/care coordination assessment. MEDINA LANDIN introduced self and role at [facility], pt voices understanding. Pt is A&Ox4 and is resting comfortably in bed and is calm. Pt at bedside. Care providers, pharmacy, and demographics verified. Admitting dx: Hypoxia, PNA LACE Strata: 3 PCP: Justin Bolden Specialists: ERICK, [facility] Preferred Pharmacy: [facility] Insurance: MCR A/B, [employer] Supp Prescription Benefit:Yes LNOK: Robbie (H) Living Arrangements: Pt lives with her and 40 y/o son in a single story home with a basement with a stair lift and 3 steps to enter. Pt states that the stair lift was built for a friend that used to live with her ADLs/IADLs: Ind Transportation: Self, DME: Shower Chair. Cane. FWW. W/C. Rollator. Grab bars. Stair lift. BP Monitor. Home oxygen through [employer]. Awaiting return e-mail/verification regarding current O2 Rx. Pt states that she has a concentrator, POC, Pulse Ox, and portable tanks. Pt states that he will bring in portability at [place]. HHC/SNF: Hx with [facility] HH. Denies SNF Hx or needs Pt?s goal: Home Plan: Home with pt . 6-Click is 19. Pt denies the need for HHC or OP Tx. However, PT is ordered and pending. CM to follow oxygen needs as well as therapy recommendations. Cristina Alvares RN, CM
[2024-03-25] MEDS: 0.9% Saline Lock 10 ML Syringe IV ×4 (10:55→22:22)
[2024-03-25 11:38] LABS: Bedside Glucose 162 mg/dL (74-106)
[2024-03-25] MEDS: Lactated Ringers 1,000 ML 15 ML IV (12:22)
--- NOTE | 2024-03-25 12:36 | PRE.ANES_ITS ---
ASA Classification* ASA Classification ASA Classification: 3 Assessment & Plan Anesthesia* Anesthesia Assessment Anesthesia Assessment: Discussed sedation and/or anesthesia options, risks, benefits, and alternatives with patient/parents/legal guardian/POA. Questions invited. The patient/parents/legal guardian/POA seems to understand and agrees to proceed with anesthesia plan. Reviewed the physical assessment, medical history, allergy history and patient home medications list prior to surgery/procedure/anesthetic and documented any changes. Performed airway and anesthesia risk assessments. Anesthesia Type Anesthesia Type: MAC Anesthesia Focused Assessment* Temperature: 97.9 F Pulse Rate: 73 Blood Pressure: 125/61 Respiratory Rate: 16 Pulse Ox: 94 Airway Assessment Mouth opens: >3 cm Mallampati Score: II Focused Labs Anesthesia Preop lab: CBC WBC 26.0 K/mm3 (4.4-11.0) H 03/25/24 05:44 RBC 3.36 M/mm3 (4.2-5.4) L 03/25/24 05:44 Hgb 10.9 g/dL (12.0-15.0) L 03/25/24 05:44 Hct 33.5 % (37-47) L 03/25/24 05:44 Plt Count 172 K/mm3 (150-450) 03/25/24 05:44 CHEMISTRY Potassium 3.6 mmol/L (3.5-5.1) 03/25/24 05:44 Sodium 139 mmol/L (136-145) 03/25/24 05:44 Magnesium 1.9 mg/dL (1.6-2.6) 03/24/24 07:34 BUN 20 mg/dL (7-18) H 03/25/24 05:44 Creatinine 0.88 mg/dL (0.55-1.02) 03/25/24 05:44 Glucose 168 mg/dL (74-106) H 03/25/24 05:44 POC Glucose 162 mg/dL (74-106) H 03/25/24 10:52 TSH 1.010 uIU/mL (0.358-3.740) 03/24/24 07:34 COAG PT 17.2 SECONDS (11.7-14.9) H 03/24/24 01:04 Pre-Assessment Diagnosis/Proposed Procedure Planned Operative Procedure(s): EGD Anesthesia History Anesthesia History - medical service representative: Anesthesia History - medical service representative Hx Hospitalization No 04/13/19 13:08 Any Problems With Anesthesia No 03/25/24 09:46 Cholinesterase deficiency No 03/25/24 09:46 You/Your Family Experience No 03/25/24 09:46 fever (hyperthermia) with Relationship Recent Exposure to Contagious No 03/25/24 09:46 Disease Does patient have nerve No 03/25/24 09:46 stimulator Patient instructed to have device shut off --Does patient have Pacemaker No 03/25/24 09:38 or ICD? When Was Last Pacemaker Check QUESTION #4 FULL TEXT: You/Your Family Experience fever (hyperthermia) with Anesthesia Last Oral Intake Last Oral intake: Last Oral Intake NPO since 00:01 03/25/24 09:38 Meds taken in AM with sips of No 03/25/24 09:38 water? Meds patient instructed to take am of surgery PONV PONV - medical service representative: PONV - medical service representative Female HX of Motion Sickness HX of N/V After Surgery Non-Smoker Duration of Surgery greater than 60 minutes Number of Risk Factors PONV Score Height & Weight Height & Weight: Anesthesia: Height & Weight Height 5 ft 4.17 in 03/25/24 09:38 Weight: 111.2 kg 03/25/24 09:38 Body Mass Index (BMI) 41.8 03/25/24 09:38 Respiratory Assessment Respiratory Assessment - medical service representative: Respiratory Tract Infection Hx - medical service representative Hx Respiratory Tract Infection Yes: current pna 03/25/24 09:46 STOP Sleep Apnea STOP Sleep Apnea - medical service representative: STOP Sleep Apnea - medical service representative Hx Hypertension Yes 03/24/24 02:11 Hx Sleep Apnea No 03/24/24 02:11 CPAP No 10/12/23 06:04 BIPAP No 10/12/23 06:04 Do you snore loudly (louder No 03/24/24 02:11 than talking or can be heard Do you often feel tired/ No 03/24/24 02:11 fatigued/ sleepy during daytime? Has anyone observed you stop No 03/24/24 02:11 breathing during sleep? STOP Results Negative 03/24/24 02:11 QUESTION #5 FULL TEXT : Do you snore loudly (louder than talking or can be heard through closed doors)? 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 Specify any problems Hx of Preganancy in last 3 N/A 03/24/24 02:11 Months Nurse Filling Out Transfusion ASELF 03/24/24 02:11 & Questions: Date: 03/24/24 03/24/24 02:11 Time: 02:12 03/24/24 02:11 Patient unable to answer at this time (ie. confused, unrespo /Reproduction History /Reproductive History - medical service representative: /Reproductive Hx- medical service representative Hx Now No 03/25/24 09:46 Gestational Age (in weeks): EDC: Hx Hx Para Hx Section SAB No 03/25/24 09:46 Active Medications Active Medications: Current Medications Generic Name Dose Route Start Last Admin Trade Name Freq PRN Reason Stop Dose Admin Acetaminophen 650 mg 03/24/24 01:20 Acetaminophen 325 Mg Tablet PO Q4H PRN PRN Fever, pain 1-10/10 Albuterol/Ipratropium 3 ml 03/24/24 15:00 03/25/24 06:55 Ipratropium/Albuterol Sulfate 3 Ml Ampul.Neb INHALATION 3 ml Q6HWA.RT ANGELITO Administration Amlodipine Besylate 10 mg 03/24/24 10:00 03/24/24 08:04 Amlodipine 10 Mg Tablet PO 10 mg DAILY ANGELITO Administration Protocol Apixaban 5 mg 03/24/24 01:20 03/24/24 22:58 Apixaban 5 Mg Tablet PO 5 mg BID ANGELITO Administration Aspirin 81 mg 03/24/24 10:00 03/24/24 08:05 Aspirin E.C. 81 Mg Tablet PO 81 mg DAILY ANGELITO Administration Atorvastatin Calcium 20 mg 03/24/24 01:30 03/24/24 22:58 Atorvastatin Calcium 20 Mg Tablet PO 20 mg QHS ANGELITO Administration Bupropion HCl 300 mg 03/24/24 10:00 03/24/24 08:05 Bupropion (Xl) 300 Mg Tablet.Xl PO 300 mg DAILY ANGELITO Administration Carvedilol 25 mg 03/24/24 01:20 03/24/24 22:58 Carvedilol 25 Mg Tablet PO 25 mg Q12 ANGELITO Administration Protocol Glucagon 1 mg 03/24/24 01:20 Glucagon 1 Mg/Ml Syringe IM X1 PRN HYPOGLYCEMIA Protocol Guaifenesin 1 tablet 03/24/24 14:55 03/24/24 22:57 Guaifenesin/D-Methorphan Tab.Sr.12h PO 1 tablet BID ANGELITO Administration Hydralazine HCl 10 mg 03/24/24 14:51 Hydralazine 20 Mg/Ml Vial IV Q4H PRN PRN SBP > 180 Protocol Azithromycin 500 mg/ Dextrose 255 mls @ 250 mls/hr 03/24/24 22:00 03/25/24 01:36 IV Infused Q24H ANGELITO Infusion Ceftriaxone Sodium 1 gm in 50 mls @ 100 mls/hr 03/24/24 22:00 03/25/24 01:35 Rocephin IV Infused Q24H ANGELITO Infusion Dextrose 250 mls @ 0 mls/hr 03/24/24 01:20 Dextrose 10%-Water IV .Q0M PRN HYPOGLYCEMIA Protocol As Directed Sodium Chloride 250 mls @ 15 mls/hr 03/24/24 02:19 IV .[id number] PRN Saline Flush Lactated Ringer's 1,000 mls @ 15 mls/hr 03/25/24 12:30 03/25/24 12:22 IV 15 mls/hr .Q48H ANGELITO Administration Imipramine HCl 25 mg 03/24/24 01:20 03/24/24 22:58 Imipramine Hcl 25 Mg Tablet PO 25 mg QHS ANGELITO Administration Insulin Glargine 10 unit 03/24/24 17:00 03/24/24 16:14 Insulin Glargine-Yfgn 100 Unit/Ml Pen SC 10 unit DINNER ANGELITO Administration Insulin Human Lispro 0 unit 03/24/24 07:00 03/25/24 10:52 Insulin Lispro 100 Unit/Ml Insuln.Pen SC Not Given ACHS [facility] Protocol Lisinopril 40 mg 03/24/24 10:00 03/24/24 08:05 Lisinopril 40 Mg Tablet PO 40 mg DAILY ANGELITO Administration Protocol Melatonin 3 mg 03/24/24 01:20 Melatonin 3 Mg Tablet PO QHS PRN PRN INSOMNIA Methylprednisolone 40 mg 03/24/24 15:00 03/25/24 06:21 Methylprednisolone 40 Mg/Ml Vial IV 40 mg Q8 ANGELITO Administration Ondansetron HCl 4 mg 03/24/24 01:20 Ondansetron 4 Mg/2 Ml Vial IV Q8H PRN PRN NAUSEA/VOMITING Prochlorperazine Edisylate 5 mg 03/24/24 01:20 Prochlorperazine 10 Mg/2 Ml Vial IV Q4H PRN PRN Breakthrough Nausea/Vomiting Senna/Docusate Sodium 2 tablet 03/24/24 22:00 03/24/24 22:57 Senna/Docusate Sodium 1 Tablet PO 2 tablet BID ANGELITO Administration Sodium Chloride 10 - 40 ml 03/24/24 02:19 03/25/24 10:55 0.9% Saline Lock 10 Ml Syringe IV 10 ml UD PRN Administration SALINE FLUSH PFSH Medical History Chronic hypoxic respiratory failure, on home oxygen therapy Morbid obesity CKD (chronic kidney disease), stage III Sleep apnea Nonischemic cardiomyopathy Essential (primary) hypertension LBBB (left bundle branch block) COPD (chronic obstructive pulmonary disease) Hyperlipidemia Nicotine abuse Atherosclerotic heart disease of [place] coronary artery without angina pectoris Bronchitis Home Medications ?Medication ?Instructions ?Recorded ?Last Taken ?Type albuterol sulfate 90 mcg/actuation 2 puff inhalation Q4H PRN 10/02/16 Unknown History aerosol inhaler SHORTNESS OF BREATH/WHEEZING aspirin 81 mg tablet,delayed 81 mg PO DAILY HEART HEALTH 10/02/16 03/18/23 History release imipramine HCl 25 mg tablet 25 - 50 mg PO QHS BLADDER CONTROL 10/02/16 03/18/23 History simvastatin 40 mg tablet 40 mg PO QHS CHOLESTEROL 10/02/16 03/18/23 History Nebulizer machine #1 ea 09/15/23 Unknown Rx bupropion HCl 300 mg 24 hr tablet, 300 mg PO DAILY mental health 10/12/23 Unknown History extended release carvedilol 25 mg tablet 25 mg PO Q12H HEART 10/12/23 Unknown History lisinopril 40 mg tablet 40 mg PO DAILY blood pressure 10/12/23 Unknown History amlodipine 10 mg tablet 10 mg PO DAILY #30 tabs 10/14/23 Unknown Rx cholecalciferol (vitamin D3) 25 25 mcg PO DAILY 03/08/24 Unknown History mcg (1,000 unit) capsule fluticasone fur. 200 mcg-umeclid 1 inh inhalation DAILY #60 ea 03/08/24 Unknown Rx 62.5 mcg-vilant 25 mcg inhalat.powder (Trelegy Ellipta) ipratropium 20 mcg-albuterol 100 1 puff inhalation BID 03/08/24 Unknown History mcg/actuation mist for inhalation (Combivent Respimat) metformin 1,000 mg tablet 1,000 mg PO BID 03/08/24 Unknown History Allergy/AdvReac Type Severity Reaction Status Date / Time Iodinated Contrast Media Allergy Other Verified 03/23/24 21:30 (CONTRASTS) meperidine (From Demerol) Allergy Unknown Verified 03/23/24 21:30 Penicillins (PCN) Allergy Rash Verified 03/23/24 21:30 Family History Mother Hypertension Diabetes Father Cancer Surgical History History of colonoscopy with polypectomy History of total hip arthroplasty History of cholecystectomy History of cataract surgery History of appendectomy History of left heart catheterization (09/03/11) Social History household members: none Smoking Status: Former smoker quit date: 04/04/23 alcohol intake: current substance use type: does not use Review of Systems (Anesthesia) ROS Narrative System reviewed and no additional complaints, except as documented.
--- NOTE | 2024-03-25 12:45 | EGD_PTH ---
PATHOLOGY RESULTS PATIENT: LUCIANA AYALA LOC: [facility] U#:[id number] AGE/SX: 73/F ROOM: [facility] RE03/23/[address]: Dr. Farhad Garza MD : 1950 BED: 1 DIS: 03/29/2024 SPEC #: [id number] RECD: 03/25/24 17:11 STATUS: BUBBA REQ #: [id number] EPI: 03/25/24 12:[address]: Jadon Solano DEPT: SURGICAL PATHOLOGY RECD BY: Liat Barron ENTERED: 03/28/24 12:19 SP TYPE: EGD BIOPSY OTHR DR: MD Dr. Farhad Pastrana MD Dr. Prakash Chand, MD Dr. Paul Nielsen, MD Dr. Robert Leininger, MD Tissues: Esophagus, NOS Procedures: Special Stain Group I Surgery Specimen Level IV Alcian Blue/PAS (control) Comments: @ Ordering doctor for SSI edited from to @ by SERAFIN at 03/29/24823 @ Ordering doctor for SUIV edited from to @ by SERAFIN at 03/29/24823 @ Ordering doctor for AB-PAS edited from to @ by SERAFIN at 03/29/24823 @ Submitting doctor edited from to @ by SERAFIN at 03/29/24823 HEADER OPERATION: EGD, biopsy, dilatation PRE-OP DIAGNOSIS: Dysphagia TISSUE SUBMITTED: Distal esophagus biopsy MICROSCOPIC DIAGNOSIS Distal esophagus, biopsy: Fragments of gastroesophageal mucosa with chronic inflammation. Intestinal metaplasia (goblet cell metaplasia) is not identified. See comment. Chu 03/29/2024 COMMENT Alcian blue/PAS stain with matched control is used in the evaluation of the specimen. MICROSCOPIC DESCRIPTION Slides are reviewed. GROSS DESCRIPTION Received in fixative is one container labeled with the patient's name and designated Distal esophagus biopsy. The specimen consists of two irregular fragments of light valle soft tissue that in aggregate measure 0.5 x 0.3 x 0.1 cm. The specimen is totally submitted in one cassette. 03/28/2024 TC:3 CPT:42743,70930
--- NOTE | 2024-03-25 12:55 | EX.PCM.CON.G ---
HPI Consult Data Date of Consult: 03/25/24 HPI Narrative Reason for Consultation: Dysphagia HPI Narrative: LUCIANA AYALA, is a 73 y/o F w/ PMHx: JONO using oxygen qHS only, CKD possible stage III unclear subtype, Morbid Obesity, HTN, HLD, Chronic COPD w/ Chronic Hypoxic Respiratory Failure (2-3L NC), Former tobacco use, Nonobstructive CAD/Nonischemic cardiomyopathy, Chronic anemia who presents to the [facility] ED on 03/23/24 with dyspnea worsening over the last 48 hours with onset of rhinorrhea, sore throat and cough starting the day prior with increased oxygen supplementation needs although she does note that her concentrator was having issues today prompting her to call the company with low oxygen levels into the 80s at home prompting EMS call with no recent increased lower extremity swelling or orthopnea but she has recently been more exposed to chemicals as they have been painting inside the house with no other ill contacts. Workup in the ED included T99.2, heart rate 117, BP 126/59, respiratory rate 23, 91% on 6 L nasal cannula normally on 2 L nasal cannula chronically with most recent repeat assessment T99, heart rate 105, BP 115/68, respiratory rate 25, 90% on 5 L nasal cannula, CBC with WBC 36.2, hemoglobin 0.8, MCV 99.2, platelet 188 with left shift, CMP with BUN/creatinine 25/1.27, GFR 44, glucose 154, lactic acid 2.8, hepatic profile not marked appearing, BNP 190.7, troponin 6, chest x-ray with small right-sided pleural effusion with basilar opacity possibly atelectasis versus pneumonia, blood culture x 2 pending per ED, rapid SARS COVID/influenza/RSV PCR negative, pending CT of the chest per ED physician upon requested evaluation patient. In the ED patient ministered DuoNeb therapy, Motrin 600 mg p.o. x 1, Zithromax 500 mg IV times 1 as well as Rocephin 1 g IV x 1. [facility] Medical History Chronic hypoxic respiratory failure, on home oxygen therapy Morbid obesity CKD (chronic kidney disease), stage III Sleep apnea Nonischemic cardiomyopathy Essential (primary) hypertension LBBB (left bundle branch block) COPD (chronic obstructive pulmonary disease) Hyperlipidemia Nicotine abuse Atherosclerotic heart disease of [place] coronary artery without angina pectoris Bronchitis Home Medications ?Medication ?Instructions ?Recorded ?Last Taken ?Type albuterol sulfate 90 mcg/actuation 2 puff inhalation Q4H PRN 10/02/16 Unknown History aerosol inhaler SHORTNESS OF BREATH/WHEEZING aspirin 81 mg tablet,delayed 81 mg PO DAILY HEART HEALTH 10/02/16 03/18/23 History release imipramine HCl 25 mg tablet 25 - 50 mg PO QHS BLADDER CONTROL 10/02/16 03/18/23 History simvastatin 40 mg tablet 40 mg PO QHS CHOLESTEROL 10/02/16 03/18/23 History Nebulizer machine #1 ea 09/15/23 Unknown Rx bupropion HCl 300 mg 24 hr tablet, 300 mg PO DAILY mental health 10/12/23 Unknown History extended release carvedilol 25 mg tablet 25 mg PO Q12H HEART 10/12/23 Unknown History lisinopril 40 mg tablet 40 mg PO DAILY blood pressure 10/12/23 Unknown History amlodipine 10 mg tablet 10 mg PO DAILY #30 tabs 10/14/23 Unknown Rx cholecalciferol (vitamin D3) 25 25 mcg PO DAILY 03/08/24 Unknown History mcg (1,000 unit) capsule fluticasone fur. 200 mcg-umeclid 1 inh inhalation DAILY #60 ea 03/08/24 Unknown Rx 62.5 mcg-vilant 25 mcg inhalat.powder (Trelegy Ellipta) ipratropium 20 mcg-albuterol 100 1 puff inhalation BID 03/08/24 Unknown History mcg/actuation mist for inhalation (Combivent Respimat) metformin 1,000 mg tablet 1,000 mg PO BID 03/08/24 Unknown History Allergy/AdvReac Type Severity Reaction Status Date / Time Iodinated Contrast Media Allergy Other Verified 03/23/24 21:30 (CONTRASTS) meperidine (From Demerol) Allergy Unknown Verified 03/23/24 21:30 Penicillins (PCN) Allergy Rash Verified 03/23/24 21:30 Family History Mother Hypertension Diabetes Father Cancer Surgical History History of colonoscopy with polypectomy History of total hip arthroplasty History of cholecystectomy History of cataract surgery History of appendectomy History of left heart catheterization (09/03/11) Social History household members: none Smoking Status: Former smoker quit date: 04/04/23 alcohol intake: current substance use type: does not use ROS ROS Narrative Admission Review of Systems: CONSTITUTIONAL: No weight loss, fever, chills, + weakness or fatigue. HEENT: Eyes: No visual loss, blurred vision, double vision or yellow sclerae. Ears, Nose, Throat: No hearing loss, sneezing, congestion, runny nose or sore throat. SKIN: No rash or itching, lesions, wounds. CARDIOVASCULAR: + Chronic edema. No chest pain, chest pressure or chest discomfort, palpitations, orthopnea, syncope. RESPIRATORY: + Acute on Chronic dyspnea primarily with exertion, cough without marked sputum. No wheezing or hemoptysis. GASTROINTESTINAL: No anorexia, nausea, vomiting or diarrhea, abdominal pain, melena, BRBPR. GENITOURINARY: No dysuria, frequency, urgency or retention. NEUROLOGICAL: No headache, lightheadedness, dizziness, syncopal events, paralysis, ataxia, numbness or tingling in the extremities, focal weakness, change in bowel or bladder control, seizure. MUSCULOSKELETAL: + muscle, back pain, joint pain or stiffness. HEMATOLOGIC: + Chronic anemia. No bleeding or bruising. LYMPHATICS: No enlarged nodes. No history of splenectomy. PSYCHIATRIC: No history of depression or anxiety. ENDOCRINOLOGIC: No reports of sweating, cold or heat intolerance. No polyuria or polydipsia. ALLERGIES: No history of asthma, hives, eczema or rhinitis. Physical Exam Narrative Physical Examination: General: Awake, alert, oriented x 3 and cooperative, seated upright in the ED bed, fatigued, no acute distress, notes feeling improved with ED interventions with less than dyspnea sensation. Skin: Normal color, normal turgor, no icterus, no cyanosis except occasional staged abrasion, bilateral lower extremity stasis skin changes. HEENT: AT/NC, EOMI, PERRLA, mildly dry MM, no carotid bruits or JVD noted; however, very thickened neck makes evaluation difficult. Lungs: Diminished, distant, mildly increased respiratory rate but no distress, more prominent bilateral bases, right greater than left, currently no marked rales, rhonchi or wheezing. Heart: Irregular irregular; no gallop, rub audible. Abdomen: Soft, morbidly obese, NTTP, distant BS, difficult to discern distention and HSM given habitus. Extremities: No cyanosis, no clubbing, mild peripheral nonpitting edema distally in the bilateral lower extremity, see skin. Neurological: Patient awake, alert, oriented as noted, cognitive function intact; pupils equally reactive to light and accommodation, cranial nerves grossly normal, moving all 4 extremities, no focal deficits, strength severely global decreased secondary to acute presentation. Psychiatric: Affect appears flat, fatigued, ill-appearing, no acute evidence of depressive or anxiety feelings. Lab / Micro Data 03/25/24 05:44 03/25/24 05:44 Labs: Laboratory Results - last 24 hr 03/23/24 22:10: Diff Path Review Reviewed 03/24/24 13:10: Troponin I High Sens 12 03/24/24 16:08: POC Glucose 199 H 03/24/24 23:05: POC Glucose 191 H 03/25/24 05:44: WBC 26.0 H, RBC 3.36 L, Hgb 10.9 L, Hct 33.5 L, MCV 99.7 H, MCH 32.4 H, MCHC 32.5, RDW Std Deviation 45.6 H, RDW Coeff of [place] 12.6, Plt Count 172, MPV 12.6 H, Immature Gran % (Auto) 1.600 H, Neut % (Auto) 91.8 H, Lymph % (Auto) 3.7 L, [place] % (Auto) 2.7, Eos % (Auto) 0.0, Baso % (Auto) 0.2, Absolute Neuts (auto) 23.9 H, Absolute Lymphs (auto) 0.97, Nucleated RBC % 0, Sodium 139, Potassium 3.6, Chloride 105, Carbon Dioxide 26.0, Anion Gap 8, BUN 20 H, Creatinine 0.88, Estim Creat Clear Calc 69.48, Est GFR (MDRD) Af Amer 81, Est GFR (MDRD) Non-Af 67, BUN/Creatinine Ratio 22.8 H, Glucose 168 H, Hemoglobin A1c 5.5, Calcium 8.3 L, Triglycerides 68, Cholesterol 107, LDL Cholesterol 32, VLDL Cholesterol 14, HDL Cholesterol 61 03/25/24 06:23: POC Glucose 170 H 03/25/24 10:52: POC Glucose 162 H Micro: Microbiology 03/24/24 10:10 Sputum, Expectorated/Coughed Gram Stain - Final 03/24/24 10:10 Sputum, Expectorated/Coughed Respiratory Culture - Preliminary Staphylococcus aureus Imaging Radiology Impression Echocardiogram 03/24/24 01:20 Interpretation Summary The study was technically difficult. Mild concentric left ventricular hypertrophy. The left ventricular ejection fraction is 65 %. Moderate calcification of the noncoronary cusp of the aortic valve. Mild aortic valve stenosis. Ordering Physician: Chantelle Chavarria Referring Physician: Justin Bolden Performed By: Toshia Orr and Student Assessment & Plan Assessment/Plan (1) Acute and chronic respiratory failure with hypoxia: (2) Pneumonia: (3) New onset a-fib: PLAN: Plan The patient is a 73 y/o F w/ PMHx: JONO using oxygen qHS only, CKD possible stage III unclear subtype, Morbid Obesity, HTN, HLD, Chronic COPD w/ Chronic Hypoxic Respiratory Failure (2-3L NC), Former tobacco use, Nonobstructive CAD/Nonischemic cardiomyopathy, Chronic anemia who presents to the [facility] ED on 03/23/24 with dyspnea worsening over the last 48 hours with onset of rhinorrhea, sore throat and cough. I was called to see her due to worsening esophageal dysphagia and inability to swallow her pills. Acute on Chronic Hypoxic secondary to Acute RML Pneumonia, Community Acquired with associated lactic acidosis suspected secondary to her hypoxemia: CXR in the ED w/ with small right sided pleural effusion with basilar opacity possibly atelectasis versus pneumonia with follow-up CT chest per ED with right middle lobe consolidation consistent with pneumonia, small right pleural effusion, prominent mediastinal lymph nodes likely reactive, pulmonary nodules unchanged from previous. Will admit to PCU given #2, maintain on oxygen with wean as tolerated to home oxygen which is normally 2 to 3 L nasal cannula supplementation, continue ATC budesonide with avoidance of albuterol and less absolutely necessary given #2, maintain on IV Rocephin and Azithromycin, MRSA screen requested, encourage HOB, IS parameters w/ pending sputum cultures and urine antigens. Bld cx x 2 obtained in the ED. PT/OT/case management consulted for discharge planning. Esophageal dysphagia. Differential diagnosis does include esophageal stricture, esophageal ring, eosinophilic esophagitis, hiatal hernia. She will undergo an upper endoscopy evaluate upper GI tract. She was explained alternatives, risk, benefits include not withstanding bleeding, infection, sepsis, perforation, need for emergent urgent . She will have an ASA of 3. Charges/Coding Visit Charges Inpatient E&M: 74071 Init Hosp L3
--- NOTE | 2024-03-25 13:24 | OP.CCLET_ITS ---
03/25/2024 Justin Bolden MD [address] [id number] Re : Upper GI endoscopy procedure for Sally Lopezler Dear Dr. Bolden This procedure was performed on Monday, March 25, 2024. My impressions and recommendations are as follows: Impressions : - LA Grade C reflux esophagitis with no bleeding. Biopsied. - Abnormal esophageal motility, suspicious for achalasia. Dilated. - Hematin (altered blood/azctvp-asksvy-ieji material) in the gastric fundus, in the gastric body and in the cardia. - Gastritis. - No gross lesions in the first portion of the duodenum. Recommendations : - Return patient to [facility] for ongoing care. - Resume regular diet. - Continue present medications. - Await pathology results. My findings are described in the full procedure note, which is enclosed. If I can be of further assistance, please feel free to contact me at . Sincerely, Jadon Solano, 03/25/2024 1:24:04 PM This report has been signed electronically.
--- NOTE | 2024-03-25 13:24 | OP.EGD_ITS ---
Patient Name: Sally Seth Procedure Date: 03/25/2024 1:00 PM Date of : 1950 Age: 73 Procedure: Upper GI endoscopy Indications: Dysphagia Providers: Jadon Solano DO Medicines: Monitored Anesthesia Care Patient Profile: This is a 73 year old female. Refer to note in patient chart for documentation of history and physical. Patient has symptoms of acute dysphagia. Complications: No immediate complications. Procedure: Pre-Anesthesia Assessment: - Prior to the procedure, a History and Physical was performed, and patient medications and allergies were reviewed. The patient is competent. The risks and benefits of the procedure and the sedation options and risks were discussed with the patient. All questions were answered and informed consent was obtained. Patient identification and proposed procedure were verified by the physician in the pre-procedure area. Mental Status Examination: alert and oriented. Airway Examination: normal oropharyngeal airway and neck mobility. Respiratory Examination: clear to auscultation. CV Examination: normal. Prophylactic Antibiotics: The patient does not require prophylactic antibiotics. Prior Anticoagulants: The patient has taken no anticoagulant or antiplatelet agents except for NSAID medication. ASA Grade Assessment: II - A patient with mild systemic disease. After reviewing the risks and benefits, the patient was deemed in satisfactory condition to undergo the procedure. The anesthesia plan was to use monitored anesthesia care (MAC). Immediately prior to administration of medications, the patient was re-assessed for adequacy to receive sedatives. The heart rate, respiratory rate, oxygen saturations, blood pressure, adequacy of pulmonary ventilation, and response to care were monitored throughout the procedure. The physical status of the patient was re-assessed after the procedure. After obtaining informed consent, the endoscope was passed under direct vision. Throughout the procedure, the patient's blood pressure, pulse, and oxygen saturations were monitored continuously. The Endoscope was introduced through the mouth, and advanced to the second part of duodenum. The upper GI endoscopy was accomplished without difficulty. The patient tolerated the procedure well. Scope In: 1:13:19 PM Scope Out: 1:18:46 PM Total Procedure Duration Time 0 hours 5 minutes 27 seconds Findings: LA Grade C (one or more mucosal breaks continuous between tops of 2 or more mucosal folds, less than 75% circumference) esophagitis with no bleeding was found 34 to 42 cm from the incisors. Biopsies were taken with a cold forceps for histology. Verification of patient identification for the specimen was done. Estimated blood loss was minimal. Abnormal motility was noted in the esophagus. The cricopharyngeus was abnormal. There are extra peristaltic waves in the esophageal body. The distal esophagus/lower esophageal sphincter is spastic, but gives up passage to the endoscope. Primary peristaltic waves are noted. A guidewire was placed and the scope was withdrawn. Dilation was performed with a Savary dilator with no resistance at 54 Fr. The dilation site was examined and showed moderate mucosal disruption. Hematin (altered blood/[id number]-ykmlfs-zpjd material) was found in the cardia, in the gastric fundus and in the gastric body. Localized mild inflammation characterized by erosions and erythema was found at the pylorus. No gross lesions were noted in the first portion of the duodenum. Impression: - LA Grade C reflux esophagitis with no bleeding. Biopsied. - Abnormal esophageal motility, suspicious for achalasia. Dilated. - Hematin (altered blood/kkkvlo-unymqy-vxae material) in the gastric fundus, in the gastric body and in the cardia. - Gastritis. - No gross lesions in the first portion of the duodenum. Recommendation: - Return patient to [facility] for ongoing care. - Resume regular diet. - Continue present medications. - Await pathology results. Procedure Code(s): --- Professional --- 49594, Esophagogastroduodenoscopy, flexible, transoral; with insertion of guide wire followed by passage of dilator(s) through esophagus over guide wire 40671, 59,51, Esophagogastroduodenoscopy, flexible, transoral; with biopsy, single or multiple CPT copyright 2021 [employer]. All rights reserved. The codes documented in this report are preliminary and upon registered phlebotomist part time review may be revised to meet current compliance requirements. Jadon Solano DO 03/25/2024 1:24:04 PM This report has been signed electronically. Number of Addenda: 0 Note Initiated On: 03/25/2024 1:00 PM
--- NOTE | 2024-03-25 13:28 | PCM.POST.ANE ---
Anesthesia: Postop Eval I Current Vital Signs Temperature: 97.6 F Pulse Rate: 72 Blood Pressure: 134/67 Respiratory Rate: 16 Pulse Ox: 95 Oxygen Delivery Method: Nasal Cannula Oxygen Flow Rate (L/min): 3 Assessment Airway patent: Yes Spontaneous unlabored respirations: Yes Mental status: Awake and Calm nausea: No Vomiting: No Anesthesia Complication: No Fluid Hydration Crystalloid volume administer (ml): 300 Total IV fluid infused: 300 Progress Note Anesthesia document: Postop Eval 1 completed: Yes
--- NOTE | 2024-03-25 13:58 | PCM.POSTANE2 ---
Anesthesia Postop Eval I Sum Postop Eval Completion status Anesthesia document: Postop Eval 1 completed: Yes Anesthesia Postop Eval I Summary Anesthesia Postop Eval I Summary: Anesthesia Postop Eval I: Assessment Summary Airway patent Yes 03/25/24 13:29 [email or web address] Spontaneous unlabored Yes 03/25/24 13:29 [email or web address] respirations Mental status Awake,Calm 03/25/24 13:29 [email or web address] nausea No 03/25/24 13:29 [email or web address] Vomiting No 03/25/24 13:29 [email or web address] Anesthesia Postop Eval I: Fluid Summary Crystalloid volume administer 300 03/25/24 13:29 [email or web address] (ml) Colloids volume administered ( ml) Blood Product volume administered (ml) Total IV fluid infused 300 03/25/24 13:29 [email or web address] Anesthesia Postop Eval I: Summary Notes Anesthesia Complication No 03/25/24 13:29 [email or web address] Anesthesia Complication Comment: Post-operative progress note Anesthesia: Postop Eval II Evaluation Mental status: Awake Pain Level: 0 nausea: No Vomiting: No
[2024-03-25 13:59] LABS: Pathologist Review Reviewed
[2024-03-25] MEDS: Carvedilol 25 MG Tablet PO ×2 (14:16→22:19)
[2024-03-25] MEDS: Senna/Docusate Sodium 1 Tablet 2 TABLET PO ×2 (14:17→22:17)
[2024-03-25] MEDS: amLODIPine 10 MG Tablet PO (14:17)
[2024-03-25] MEDS: APIXABAN 5 MG TABLET PO ×2 (14:18→22:17)
[2024-03-25] MEDS: buPROPion (XL) 300 MG TABLET.XL PO (14:18)
[2024-03-25] MEDS: Lisinopril 40 MG Tablet PO (14:18)
[2024-03-25] MEDS: Aspirin E.C. 81 MG Tablet PO (14:18)
[2024-03-25] MEDS: guaiFENesin/D-Methorphan TAB.SR.12H 1 TABLET PO ×2 (14:18→22:16)
[2024-03-25] MEDS: Insulin Glargine-YFGN 100 UNIT/ML Pen 10 UNIT SC (17:31)
[2024-03-25] MEDS: Vancomycin HCl 1,750 MG in 0.9% Normal Saline (500mL Bag) 500 ML 250 MG IV (17:44)
[2024-03-25 17:53] LABS: Bedside Glucose 212 mg/dL (74-106)
--- NOTE | 2024-03-25 18:12 | PCM.RX.CS ---
Consult Antibiotic Management Pharmacy has been consulted to manage selected antibiotic: Vancomycin Type of Intervention Type of Consult: New start Suspected Infection Suspected Infection: Pneumonia Labs Labs: Sodium 139 mmol/L (136-145) 03/25/24 05:44 Potassium 3.6 mmol/L (3.5-5.1) 03/25/24 05:44 Chloride 105 mmol/L (98-107) 03/25/24 05:44 Carbon Dioxide 26.0 mmol/L (21.0-32.0) 03/25/24 05:44 Anion Gap 8 (5-15) 03/25/24 05:44 BUN 20 mg/dL (7-18) H 03/25/24 05:44 Creatinine 0.88 mg/dL (0.55-1.02) 03/25/24 05:44 Est GFR (MDRD) Af Amer 81 mL/min (>60) 03/25/24 05:44 Est GFR (MDRD) Non-Af 67 mL/min (>60) 03/25/24 05:44 BUN/Creatinine Ratio 22.8 RATIO (10-20) H 03/25/24 05:44 Glucose 168 mg/dL (74-106) H 03/25/24 05:44 Microbiology Microbiology: Microbiology 03/24/24 10:10 Sputum, Expectorated/Coughed Gram Stain - Final 03/24/24 10:10 Sputum, Expectorated/Coughed Respiratory Culture - Preliminary Staphylococcus aureus 03/24/24 06:22 Urine, Clean Catch Legionella Antigen - Final 03/24/24 06:22 Urine, Clean Catch Streptococcus pneumoniae Antigen (M - Final 03/24/24 02:53 Nasal Secretion MRSA (PCR) - Final 03/24/24 02:53 Mucosa - Nose Respiratory Panel (PCR) - Final 03/23/24 22:29 Mucosa - Nose SARS-CoV-2, Influenza & RSV (PCR) - Final Pharmacy Plan for Drug Dosing Pharmacy Plan for Drug Dosing: NEW START IV VANCOMYCIN Consulting Physician: Lemuel Indication: Pneumonia Goal Trough: 15-20 mg/dl SrCr: 0.88 mg/dL CrCl: 69.5 ml/min Comments: initial dose of 1750mg given at 1744 Vancomycin Dose: Will start 1500mg Q12 (03/26 @ 0600) and get a trough prior to the 4th dose per policy. Pending Level: 03/27/24 @ 0530 Pharmacy Service will continue to monitor and adjust dosing as required.
[2024-03-25] MEDS: Atorvastatin Calcium 20 MG Tablet PO (22:16)
[2024-03-25] MEDS: Imipramine HCl 25 MG Tablet PO (22:19)
[2024-03-25] MEDS: Ceftriaxone 1 GM/50 ML BAG IV (22:28)
[2024-03-25 22:58] LABS: Bedside Glucose 180 mg/dL (74-106)
[2024-03-26] VITALS (15 sets, daily range): BP systolic 119–126; BP diastolic 51–63; PULSE 62–75; RESP 15–18; TEMP 36.2–36.5; O2SAT 4–98; BMI 41.4
[2024-03-26] MEDS: Vancomycin HCl 1,500 MG in 0.9% Normal Saline (500mL Bag) 500 ML 250 MG IV (05:02)
[2024-03-26] MEDS: 0.9% Saline Lock 10 ML Syringe IV ×3 (05:02→22:09)
[2024-03-26 05:40] LABS: Absolute Lymphocyte Count 1.15 X10^3/uL (0.83-4.51); Basophil# 0.02 X10^3/uL; Basophil% 0.1 % (0-1); Hematocrit 32.5 % (37-47); Hemoglobin 10.6 g/dL (12.0-15.0); Lymphocyte # 1.15 X10^3/ul (0.83-4.51); Lymphocyte % 5.2 % (19-41); Mean Corp Hgb Conc 32.6 g/dL (32-36); Mean Corpuscular Hgb 32.6 pg (27.0-32.0); Mean Platelet Vol. 12.1 fl (6.2-12.0); Monocyte# 0.78 X10^3/uL; Monocyte% 3.5 % (0-10); NRBC Flagged by Analyzer 0 % (0-5); Neutrophil # 20.02 X10^3/uL (2.7-7.7); Neutrophil % 89.6 % (47-70); POSITIVE DIFFERENTIAL YES; Platelet Count 200 K/mm3 (150-450); RBC Distribution Width CV 12.6 % (11.6-14.6); RBC Distribution Width SD 46.4 fl (35.1-43.9); Red Blood Count 3.25 M/mm3 (4.2-5.4); White Blood Count 22.3 K/mm3 (4.4-11.0)
[2024-03-26 05:46] LABS: Differential Indicated SCAN CRITERIA MET
[2024-03-26 06:02] LABS: Anion Gap 4 (5-15); BUN 25 mg/dL (7-18); BUN/Creat Ratio 27.1 RATIO (10-20); Calcium,Total 8.5 mg/dL (8.5-10.1); Chloride 106 mmol/L (98-107); Creatinine, Serum 0.92 mg/dL (0.55-1.02); EST Glomerular Filtration Rate 63 mL/min (>60); Est Glom Filt Rate - Afr Amer 77 mL/min (>60); Estimated Creatinine Clearance 66.11 ml/min; Glucose 194 mg/dL (74-106); Potassium 3.9 mmol/L (3.5-5.1); Sodium Level 138 mmol/L (136-145)
[2024-03-26] MEDS: Insulin Lispro 100 UNIT/ML INSULN.PEN SC ×4 (06:16→22:04)
[2024-03-26 06:30] LABS: Differential Comment SCANNED
[2024-03-26 06:36] LABS: Bedside Glucose 188 mg/dL (74-106)
[2024-03-26] MEDS: Ipratropium/Albuterol Sulfate 3 ML AMPUL.NEB INHALATION ×2 (07:04→19:29)
[2024-03-26] MEDS: amLODIPine 10 MG Tablet PO (10:04)
[2024-03-26] MEDS: Carvedilol 25 MG Tablet PO ×2 (10:04→22:10)
[2024-03-26] MEDS: buPROPion (XL) 300 MG TABLET.XL PO (10:04)
[2024-03-26] MEDS: Lisinopril 40 MG Tablet PO (10:04)
[2024-03-26] MEDS: guaiFENesin/D-Methorphan TAB.SR.12H 1 TABLET PO ×2 (10:04→22:10)
[2024-03-26] MEDS: APIXABAN 5 MG TABLET PO ×2 (10:04→22:10)
[2024-03-26] MEDS: Aspirin E.C. 81 MG Tablet PO (10:04)
[2024-03-26] MEDS: Senna/Docusate Sodium 1 Tablet 2 TABLET PO ×2 (10:04→22:12)
[2024-03-26] MEDS: Pantoprazole Sodium 40 MG Tablet PO ×2 (10:11→22:15)
[2024-03-26 12:00] LABS: Bedside Glucose 306 mg/dL (74-106)
--- NOTE | 2024-03-26 14:08 | PCM.PN.HOSP ---
Subjective Subjective Doing well, feels a little bit better today Objective Data Objective Data Vital Signs: Vital Signs Temp Pulse Resp BP Pulse Ox O2 Del Method O2 Flow Rate 97.6 F L 69 15 120/51 L 92 Nasal Cannula 4 03/26/24 09:28 03/26/24 09:28 03/26/24 11:34 03/26/24 09:28 03/26/24 11:34 03/26/24 13:54 03/26/24 13:54 Oxygen Flow Rate (L/min) 4 Oxygen Delivery Method Nasal Cannula Weight: 242 lb 15.19 oz Body Mass Index (BMI) 41.4 Intake & Output: Intake and Output for Last 24 Hours 03/25/24 03/26/24 03/27/24 03:59 03:59 03:59 Intake Total 1605 / 1605 679 / 679 530 / 530 Balance 1605 / 1605 679 / 679 530 / 530 Lab / Micro Data 03/26/24 05:30 03/26/24 05:30 Labs: Laboratory Results - last 24 hr 03/25/24 17:26: POC Glucose 212 H 03/25/24 22:24: POC Glucose 180 H 03/26/24 05:30: WBC 22.3 H, RBC 3.25 L, Hgb 10.6 L, Hct 32.5 L, MCV 100.0 H, MCH 32.6 H, MCHC 32.6, RDW Std Deviation 46.4 H, RDW Coeff of Juventino 12.6, Plt Count 200, MPV 12.1 H, Immature Gran % (Auto) 1.600 H, Neut % (Auto) 89.6 H, Lymph % (Auto) 5.2 L, [place] % (Auto) 3.5, Eos % (Auto) 0.0, Baso % (Auto) 0.1, Absolute Neuts (auto) 20.0 H, Absolute Lymphs (auto) 1.15, Nucleated RBC % 0, Differential Comment SCANNED, Sodium 138, Potassium 3.9, Chloride 106, Carbon Dioxide 28.0, Anion Gap 4 L, BUN 25 H, Creatinine 0.92, Estim Creat Clear Calc 66.11, Est GFR (MDRD) Af Amer 77, Est GFR (MDRD) Non-Af 63, BUN/Creatinine Ratio 27.1 H, Glucose 194 H, Calcium 8.5 03/26/24 06:15: POC Glucose 188 H 03/26/24 11:26: POC Glucose 306 H Micro: Microbiology 03/24/24 10:10 Sputum, Expectorated/Coughed Gram Stain - Final 03/24/24 10:10 Sputum, Expectorated/Coughed Respiratory Culture - Final Staphylococcus aureus 03/23/24 22:10 Blood Culture (Wb) - Right Wrist Blood Culture - Preliminary No growth in 48 hours. 03/25/24 17:50 Nasal Secretion MRSA (PCR) - Final 03/24/24 06:22 Urine, Clean Catch Legionella Antigen - Final 03/24/24 06:22 Urine, Clean Catch Streptococcus pneumoniae Antigen (M - Final 03/24/24 02:53 Nasal Secretion MRSA (PCR) - Final 03/24/24 02:53 Mucosa - Nose Respiratory Panel (PCR) - Final 03/23/24 22:29 Mucosa - Nose SARS-CoV-2, Influenza & RSV (PCR) - Final Physical Exam Narrative General: Alert, Oriented x3, Cooperative, No apparent distress HEENT: Atraumatic, PERRLA, EOMI, Normocephalic Oral: Moist Mucosa Neck: Supple, No JVD Lungs: Diminished, Normal air movement, No rhonchi, scattered wheeze, No rales Cardiovascular: Regular rate, Regular Rhythm, Normal S1, Normal S2, No murmurs Abdomen: Soft, Non Tender, Non-Distended, No Hepato-splenomegaly Extremities: No edema, Capillary Refill Less than 3 Seconds Skin: No rashes, No breakdown Musculoskeletal: No Tenderness to Palpation of Joints or Extremities Neurological: No focal neurological deficits, Motor Exam 5/5 strength throughout, Sensory exam intact to light touch and pain Psych/Mental Status: Normal Affect, Appropriate Assessment & Plan Assessment/Plan (1) Acute and chronic respiratory failure with hypoxia: (2) Pneumonia: (3) New onset a-fib: PLAN: Plan The patient is a 73 y/o F was admitted with shortness of breath worsening over 2 to 3 days with URI symptoms of rhinorrhea or sore throat and cough for 3 to 4 days with increased oxygen requirement. In ED found to have right lower lobe pneumonia. #1. Acute on Chronic Hypoxic secondary to Acute RML Pneumonia, Community Acquired with associated lactic acidosis suspected secondary to her hypoxemia: Patient is being admitted in PCU status but currently in ED. On baseline 2 to 3 L of oxygen at night with CPAP. Chest x-ray and states CT initially reviewed and shows right lower lobe consolidation with small right pleural effusion. Started on IV antibiotic ceftriaxone and azithromycin. Pneumonia infectious workup so far negative including respiratory panel, urinary antigen, and triple PCR for SARS-CoV-2, flu and RSV are negative 03/25/2024: Prelim sputum culture growing 2+ GPC, 2+ GPR. ID consult requested and discussed with him. Patient already had echo which did not show vegetation. No further need for SRINIVASA. Vancomycin added and Zithromax discontinued. 03/26/2024: MSSA pneumonia, will discontinue vancomycin continue with Rocephin 2. Mild esophageal dysphagia: Patient states he has mild dysphagia for last 2 to 3 years and it happens randomly sometime once in a month or once in 3 months. It can happen with any solid food but not liquid food. GI consulted. Had EGD suspected motility disorder EGD 03/25/2020 03/26/2024: EGD with esophagitis and gastritis, will start on twice daily PPI #2. Paroxysmal atrial fibrillation w/ RVR, new onset with PVCs: EKG in ED w/ atrial fibrillation w/ RVR. Patient administered Cardizem 10 mg bolus in ED. cardiac enzymes negative. BNP slightly elevated. CHADVASC score is high therefore started on Eliquis. Rate controlled with carvedilol. 03/25: 2D echo shows EF 65% with mild aortic stenosis and calcification in noncoronary cusp of aortic valve. #3. Chronic macrocytic anemia: Admission hemoglobin 11.8, MCV 99.2, baseline hemoglobin more recently has been lower at 12 range. No acute issues 03/25 H&H at baseline. #4. Nonobstructive CAD/nonischemic cardiomyopathy: Patient with single-vessel diagonal branch disease, nonobstructive, following with cardiology with last evaluation 08/28/2023 in the office, continue aspirin, statin, Coreg, lisinopril home regimen. #5. Mild COPD exacerbation with chronic hypoxic respiratory failure (2-3L NC) due to pneumonia: Patient complained that he has increased shortness of breath for about 2 to 3 days along with cough but no change in his sputum. continue oxygen supplementation with wean as tolerated to home 2 to 3 L supplementation. Patient is being managed on scheduled bronchodilator, IV Solu-Medrol, Mucinex, incentive spirometry and Pep. 03/25: Shortness of breath and wheezing better. 03/26/2024: Will decrease Solu-Medrol to daily prednisone #6. Hypertension: Continue home regimen including lisinopril, Coreg and IV as needed Daniel. #7. Hyperlipidemia: We will continue patient on statin therapy. FLP #8. Chronic Kidney Disease Stage IIIa : Admission BUN/Cr 25/1.27, GFR 44, baseline r appears 0.7-1.1, repeat creatinine shows 1.09, BUN 24. #9. JONO: Patient does not use CPAP or BiPAP but only supplemental oxygen at night, will continue supplementation as noted above #1 with wean as tolerated to previous home level. #10. Morbid Obesity: Weight loss and lifestyle changes encouraged. #11. Former Tobacco Abuse: Encouraged continued tobacco cessation. #12. Hyperglycemia: Glucose in BMP elevated 154, 189. Accu-Chek AC incorrigible sliding scale. A1c tomorrow AM 13. Electrolyte abnormality: Serum magnesium level, 0.9. Hypomagnesemia, magnesium sulfate replaced. Repeat magnesium 1.9. DVT: Eliquis Charges/Coding Visit Charges Inpatient E&M: 81912 Subs Hosp L2
[2024-03-26 16:28] LABS: Bedside Glucose 182 mg/dL (74-106)
[2024-03-26] MEDS: Insulin Glargine-YFGN 100 UNIT/ML Pen 10 UNIT SC (16:48)
[2024-03-26] MEDS: Ceftriaxone 1 GM/50 ML BAG IV (22:06)
[2024-03-26] MEDS: Atorvastatin Calcium 20 MG Tablet PO (22:11)
[2024-03-26] MEDS: Imipramine HCl 25 MG Tablet PO (22:12)
[2024-03-26 23:10] LABS: Bedside Glucose 198 mg/dL (74-106)
[2024-03-27] VITALS (8 sets, daily range): BP systolic 113–150; BP diastolic 58–61; PULSE 62–75; RESP 14–20; TEMP 36–36.6; O2SAT 86–96; BMI 40.6
[2024-03-27] MEDS: Ipratropium/Albuterol Sulfate 3 ML AMPUL.NEB INHALATION ×3 (07:00→19:50)
[2024-03-27 07:03] LABS: Bedside Glucose 109 mg/dL (74-106)
[2024-03-27 07:10] LABS: Absolute Lymphocyte Count 2.15 X10^3/uL (0.83-4.51); Absolute Neutrophil Count 15.8 X10^3/uL (2.0-7.7); Basophil# 0.09 X10^3/uL; Basophil% 0.4 % (0-1); Eosinophil# 0.06 X10^3/uL; Eosinophils% 0.3 % (0-5); Hematocrit 34.4 % (37-47); Hemoglobin 10.9 g/dL (12.0-15.0); Lymphocyte # 2.15 X10^3/ul (0.83-4.51); Lymphocyte % 10.6 % (19-41); Mean Corp Hgb Conc 31.7 g/dL (32-36); Mean Corpuscular Hgb 32.3 pg (27.0-32.0); Mean Corpuscular Volume 102.1 fL (81-99); Mean Platelet Vol. 12.1 fl (6.2-12.0); Monocyte# 1.51 X10^3/uL; Monocyte% 7.4 % (0-10); NRBC Flagged by Analyzer 0.1 % (0-5); Neutrophil # 15.83 X10^3/uL (2.7-7.7); POSITIVE DIFFERENTIAL YES; Platelet Count 221 K/mm3 (150-450); RBC Distribution Width CV 12.8 % (11.6-14.6); RBC Distribution Width SD 47.8 fl (35.1-43.9); Red Blood Count 3.37 M/mm3 (4.2-5.4); White Blood Count 20.3 K/mm3 (4.4-11.0)
[2024-03-27 07:14] LABS: Differential Indicated SCAN CRITERIA MET
[2024-03-27 07:25] LABS: Anion Gap 4 (5-15); BUN 30 mg/dL (7-18); BUN/Creat Ratio 32.6 RATIO (10-20); Calcium,Total 8.5 mg/dL (8.5-10.1); Chloride 108 mmol/L (98-107); Creatinine, Serum 0.92 mg/dL (0.55-1.02); EST Glomerular Filtration Rate 64 mL/min (>60); Est Glom Filt Rate - Afr Amer 77 mL/min (>60); Estimated Creatinine Clearance 65.29 ml/min; Glucose 122 mg/dL (74-106); Potassium 4.2 mmol/L (3.5-5.1); Sodium Level 141 mmol/L (136-145)
[2024-03-27] MEDS: APIXABAN 5 MG TABLET PO ×2 (08:59→22:25)
[2024-03-27] MEDS: Carvedilol 25 MG Tablet PO ×2 (08:59→22:25)
[2024-03-27] MEDS: predniSONE 20 MG Tablet 40 MG PO (08:59)
[2024-03-27] MEDS: guaiFENesin/D-Methorphan TAB.SR.12H 1 TABLET PO ×2 (08:59→22:26)
[2024-03-27] MEDS: Aspirin E.C. 81 MG Tablet PO (08:59)
[2024-03-27] MEDS: amLODIPine 10 MG Tablet PO (09:00)
[2024-03-27] MEDS: Senna/Docusate Sodium 1 Tablet 2 TABLET PO (09:01)
[2024-03-27] MEDS: buPROPion (XL) 300 MG TABLET.XL PO (09:02)
[2024-03-27] MEDS: Lisinopril 40 MG Tablet PO (09:02)
[2024-03-27] MEDS: Pantoprazole Sodium 40 MG Tablet PO ×2 (09:04→22:26)
[2024-03-27 11:29] LABS: Bedside Glucose 136 mg/dL (74-106)
--- NOTE | 2024-03-27 13:02 | PCM.PN.HOSP ---
Subjective Subjective Doing well, no issues overnight Objective Data Objective Data Vital Signs: Vital Signs Temp Pulse Resp BP Pulse Ox O2 Del Method O2 Flow Rate 97.9 F 63 14 124/59 H 87 Nasal Cannula 4 03/27/24 08:55 03/27/24 08:55 03/27/24 08:55 03/27/24 08:55 03/27/24 09:30 03/27/24 10:00 03/27/24 10:00 Oxygen Flow Rate (L/min) [ 8 AMBULATING with Oxygen #3] Oxygen Flow Rate (L/min) [ 6 AMBULATING with Oxygen #2] Oxygen Flow Rate (L/min) [ 4 AMBULATING with Oxygen #1] Oxygen Flow Rate (L/min) [At 2 REST with Oxygen] Oxygen Flow Rate (L/min) 4 Oxygen Delivery Method Nasal Cannula Weight: 237 lb 10.533 oz Body Mass Index (BMI) 40.6 Intake & Output: Intake and Output for Last 24 Hours 03/26/24 03/27/24 03/28/24 03:59 03:59 03:59 Intake Total 679 / 679 580 / 580 Balance 679 / 679 580 / 580 Lab / Micro Data 03/27/24 06:10 03/27/24 06:10 Labs: Laboratory Results - last 24 hr 03/26/24 16:09: POC Glucose 182 H 03/26/24 22:03: POC Glucose 198 H 03/27/24 06:10: WBC 20.3 H, RBC 3.37 L, Hgb 10.9 L, Hct 34.4 L, MCV 102.1 H, MCH 32.3 H, MCHC 31.7 L, RDW Std Deviation 47.8 H, RDW Coeff of [place] 12.8, Plt Count 221, MPV 12.1 H, Immature Gran % (Auto) 3.300 H, Neut % (Auto) 78.0 H, Lymph % (Auto) 10.6 L, [place] % (Auto) 7.4, Eos % (Auto) 0.3, Baso % (Auto) 0.4, Absolute Neuts (auto) 15.8 H, Absolute Lymphs (auto) 2.15, Nucleated RBC % 0.1, Sodium 141, Potassium 4.2, Chloride 108 H, Carbon Dioxide 29.0, Anion Gap 4 L, BUN 30 H, Creatinine 0.92, Estim Creat Clear Calc 65.29, Est GFR (MDRD) Af Amer 77, Est GFR (MDRD) Non-Af 64, BUN/Creatinine Ratio 32.6 H, Glucose 122 H, Calcium 8.5 03/27/24 06:34: POC Glucose 109 H 03/27/24 11:11: POC Glucose 136 H Micro: Microbiology 03/24/24 10:10 Sputum, Expectorated/Coughed Gram Stain - Final 03/24/24 10:10 Sputum, Expectorated/Coughed Respiratory Culture - Final Staphylococcus aureus 03/23/24 22:10 Blood Culture (Wb) - Right Wrist Blood Culture - Preliminary No growth in 48 hours. 03/25/24 17:50 Nasal Secretion MRSA (PCR) - Final 03/24/24 06:22 Urine, Clean Catch Legionella Antigen - Final 03/24/24 06:22 Urine, Clean Catch Streptococcus pneumoniae Antigen (M - Final 03/24/24 02:53 Nasal Secretion MRSA (PCR) - Final 03/24/24 02:53 Mucosa - Nose Respiratory Panel (PCR) - Final 03/23/24 22:29 Mucosa - Nose SARS-CoV-2, Influenza & RSV (PCR) - Final Physical Exam Narrative General: Alert, Oriented x3, Cooperative, No apparent distress HEENT: Atraumatic, PERRLA, EOMI, Normocephalic Oral: Moist Mucosa Neck: Supple, No JVD Lungs: Diminished, Normal air movement, No rhonchi, scattered wheeze, No rales Cardiovascular: Regular rate, Regular Rhythm, Normal S1, Normal S2, No murmurs Abdomen: Soft, Non Tender, Non-Distended, No Hepato-splenomegaly Extremities: No edema, Capillary Refill Less than 3 Seconds Skin: No rashes, No breakdown Musculoskeletal: No Tenderness to Palpation of Joints or Extremities Neurological: No focal neurological deficits, Motor Exam 5/5 strength throughout, Sensory exam intact to light touch and pain Psych/Mental Status: Normal Affect, Appropriate Assessment & Plan Assessment/Plan (1) Acute and chronic respiratory failure with hypoxia: (2) Pneumonia: (3) New onset a-fib: PLAN: Plan #1. Acute on Chronic Hypoxic secondary to Acute RML Pneumonia, Community Acquired with associated lactic acidosis suspected secondary to her hypoxemia: Patient is being admitted in PCU status but currently in ED. On baseline 2 to 3 L of oxygen at night with CPAP. Chest x-ray and states CT initially reviewed and shows right lower lobe consolidation with small right pleural effusion. Started on IV antibiotic ceftriaxone and azithromycin. Pneumonia infectious workup so far negative including respiratory panel, urinary antigen, and triple PCR for SARS-CoV-2, flu and RSV are negative 03/25/2024: Prelim sputum culture growing 2+ GPC, 2+ GPR. ID consult requested and discussed with him. Patient already had echo which did not show vegetation. No further need for SRINIVASA. Vancomycin added and Zithromax discontinued. 03/26/2024: MSSA pneumonia, will discontinue vancomycin continue with Rocephin 03/27/2024: She required 8 L with ambulation today, will trial her on a dose of IV Lasix 2. Mild esophageal dysphagia: Patient states he has mild dysphagia for last 2 to 3 years and it happens randomly sometime once in a month or once in 3 months. It can happen with any solid food but not liquid food. GI consulted. Had EGD suspected motility disorder EGD 03/25/2020 03/26/2024: EGD with esophagitis and gastritis, will start on twice daily PPI #2. Paroxysmal atrial fibrillation w/ RVR, new onset with PVCs: EKG in ED w/ atrial fibrillation w/ RVR. Patient administered Cardizem 10 mg bolus in ED. cardiac enzymes negative. BNP slightly elevated. CHADVASC score is high therefore started on Eliquis. Rate controlled with carvedilol. 03/25: 2D echo shows EF 65% with mild aortic stenosis and calcification in noncoronary cusp of aortic valve. #3. Chronic macrocytic anemia: Admission hemoglobin 11.8, MCV 99.2, baseline hemoglobin more recently has been lower at 12 range. No acute issues 03/25 H&H at baseline. #4. Nonobstructive CAD/nonischemic cardiomyopathy: Patient with single-vessel diagonal branch disease, nonobstructive, following with cardiology with last evaluation 08/28/2023 in the office, continue aspirin, statin, Coreg, lisinopril home regimen. #5. Mild COPD exacerbation with chronic hypoxic respiratory failure (2-3L NC) due to pneumonia: Patient complained that he has increased shortness of breath for about 2 to 3 days along with cough but no change in his sputum. continue oxygen supplementation with wean as tolerated to home 2 to 3 L supplementation. Patient is being managed on scheduled bronchodilator, IV Solu-Medrol, Mucinex, incentive spirometry and Pep. 03/25: Shortness of breath and wheezing better. 03/26/2024: Will decrease Solu-Medrol to daily prednisone #6. Hypertension: Continue home regimen including lisinopril, Coreg and IV as needed Daniel. #7. Hyperlipidemia: We will continue patient on statin therapy. FLP #8. Chronic Kidney Disease Stage IIIa : Admission BUN/Cr 25/1.27, GFR 44, baseline r appears 0.7-1.1, repeat creatinine shows 1.09, BUN 24. #9. JONO: Patient does not use CPAP or BiPAP but only supplemental oxygen at night, will continue supplementation as noted above #1 with wean as tolerated to previous home level. #10. Morbid Obesity: Weight loss and lifestyle changes encouraged. #11. Former Tobacco Abuse: Encouraged continued tobacco cessation. #12. Hyperglycemia: Glucose in BMP elevated 154, 189. Accu-Chek AC incorrigible sliding scale. A1c tomorrow AM 13. Electrolyte abnormality: Serum magnesium level, 0.9. Hypomagnesemia, magnesium sulfate replaced. Repeat magnesium 1.9. DVT: Eliquis Charges/Coding Visit Charges Inpatient E&M: 35233 Subs Hosp L2
[2024-03-27] MEDS: 0.9% Saline Lock 10 ML Syringe IV ×2 (14:44→22:32)
[2024-03-27] MEDS: Furosemide 20 MG/2 ML VIAL IV (14:44)
[2024-03-27] MEDS: Insulin Lispro 100 UNIT/ML INSULN.PEN SC ×2 (16:40→22:27)
[2024-03-27] MEDS: Insulin Glargine-YFGN 100 UNIT/ML Pen 10 UNIT SC (16:41)
[2024-03-27 17:34] LABS: Bedside Glucose 207 mg/dL (74-106)
[2024-03-27] MEDS: Atorvastatin Calcium 20 MG Tablet PO (22:26)
[2024-03-27] MEDS: Imipramine HCl 25 MG Tablet PO (22:27)
[2024-03-27] MEDS: Ceftriaxone 1 GM/50 ML BAG IV (22:50)
[2024-03-27 23:11] LABS: Bedside Glucose 189 mg/dL (74-106)
[2024-03-28] VITALS (10 sets, daily range): BP systolic 126–188; BP diastolic 64–78; PULSE 60–70; RESP 16–18; TEMP 35.9–36.8; O2SAT 86–98; BMI 40.3
[2024-03-28 06:52] LABS: Bedside Glucose 111 mg/dL (74-106)
[2024-03-28 07:43] LABS: Anion Gap 6 (5-15); BUN 24 mg/dL (7-18); BUN/Creat Ratio 27.5 RATIO (10-20); Calcium,Total 8.1 mg/dL (8.5-10.1); Chloride 105 mmol/L (98-107); Creatinine, Serum 0.87 mg/dL (0.55-1.02); EST Glomerular Filtration Rate 68 mL/min (>60); Est Glom Filt Rate - Afr Amer 82 mL/min (>60); Estimated Creatinine Clearance 68.82 ml/min; Glucose 132 mg/dL (74-106); Potassium 3.5 mmol/L (3.5-5.1); Sodium Level 140 mmol/L (136-145)
[2024-03-28] MEDS: Carvedilol 25 MG Tablet PO ×2 (08:28→20:21)
[2024-03-28] MEDS: APIXABAN 5 MG TABLET PO ×2 (08:28→20:20)
[2024-03-28] MEDS: Aspirin E.C. 81 MG Tablet PO (08:28)
[2024-03-28] MEDS: amLODIPine 10 MG Tablet PO (08:29)
[2024-03-28] MEDS: guaiFENesin/D-Methorphan TAB.SR.12H 1 TABLET PO ×2 (08:29→20:21)
[2024-03-28] MEDS: Pantoprazole Sodium 40 MG Tablet PO ×2 (08:29→20:22)
[2024-03-28] MEDS: predniSONE 20 MG Tablet 40 MG PO (08:29)
[2024-03-28] MEDS: buPROPion (XL) 300 MG TABLET.XL PO (08:29)
[2024-03-28] MEDS: Lisinopril 40 MG Tablet PO (08:30)
[2024-03-28] MEDS: Furosemide 40 MG/4 ML Vial IV (11:50)
[2024-03-28] MEDS: Insulin Lispro 100 UNIT/ML INSULN.PEN SC ×3 (11:52→20:20)
[2024-03-28 12:47] LABS: Bedside Glucose 162 mg/dL (74-106)
--- NOTE | 2024-03-28 12:59 | PCM.CONS.GEN ---
Assessment & Plan Assessment/Plan (1) Pneumonia: PLAN: sputum with mssa, on ceftriaxone. Will change to po doxy, plan on 4 more days. Will follow as needed, thank you (2) Acute and chronic respiratory failure with hypoxia: HPI Consult Data Date of Consult: 03/28/24 HPI Narrative Reason for Consultation: pneumonia HPI Narrative: LUCIAAN AYALA, is a 73 F with JONO, COPD, CKD, on home O2, presented 03/23 with 2-3 days progressive dyspnea, hypoxia, dry cough, fatigue, not feeling well. Admitted on azithro/ceftriaxone, now just on ceftriaxone. Feeling better, no sputum, no n/v/d. O2 down to 4L. Full ROS performed and neg except as noted above. [facility] Medical History Chronic hypoxic respiratory failure, on home oxygen therapy Morbid obesity CKD (chronic kidney disease), stage III Sleep apnea Nonischemic cardiomyopathy Essential (primary) hypertension LBBB (left bundle branch block) COPD (chronic obstructive pulmonary disease) Hyperlipidemia Nicotine abuse Atherosclerotic heart disease of [place] coronary artery without angina pectoris Bronchitis Home Medications ?Medication ?Instructions ?Recorded ?Last Taken ?Type albuterol sulfate 90 mcg/actuation 2 puff inhalation Q4H PRN 10/02/16 Unknown History aerosol inhaler SHORTNESS OF BREATH/WHEEZING aspirin 81 mg tablet,delayed 81 mg PO DAILY HEART HEALTH 10/02/16 03/18/23 History release imipramine HCl 25 mg tablet 25 - 50 mg PO QHS BLADDER CONTROL 10/02/16 03/18/23 History simvastatin 40 mg tablet 40 mg PO QHS CHOLESTEROL 10/02/16 03/18/23 History Nebulizer machine #1 ea 09/15/23 Unknown Rx bupropion HCl 300 mg 24 hr tablet, 300 mg PO DAILY mental health 10/12/23 Unknown History extended release carvedilol 25 mg tablet 25 mg PO Q12H HEART 10/12/23 Unknown History lisinopril 40 mg tablet 40 mg PO DAILY blood pressure 10/12/23 Unknown History amlodipine 10 mg tablet 10 mg PO DAILY #30 tabs 10/14/23 Unknown Rx cholecalciferol (vitamin D3) 25 25 mcg PO DAILY 03/08/24 Unknown History mcg (1,000 unit) capsule fluticasone fur. 200 mcg-umeclid 1 inh inhalation DAILY #60 ea 03/08/24 Unknown Rx 62.5 mcg-vilant 25 mcg inhalat.powder (Trelegy Ellipta) ipratropium 20 mcg-albuterol 100 1 puff inhalation BID 03/08/24 Unknown History mcg/actuation mist for inhalation (Combivent Respimat) metformin 1,000 mg tablet 1,000 mg PO BID 03/08/24 Unknown History Allergy/AdvReac Type Severity Reaction Status Date / Time Iodinated Contrast Media Allergy Other Verified 03/23/24 21:30 (CONTRASTS) meperidine (From Demerol) Allergy Unknown Verified 03/23/24 21:30 Penicillins (PCN) Allergy Rash Verified 03/23/24 21:30 Family History Mother Hypertension Diabetes Father Cancer Surgical History History of colonoscopy with polypectomy History of total hip arthroplasty History of cholecystectomy History of cataract surgery History of appendectomy History of left heart catheterization (09/03/11) Social History household members: none Smoking Status: Former smoker quit date: 04/04/23 alcohol intake: current substance use type: does not use Physical Exam Const alert, oriented x3 and no apparent distress General Appearance: cooperative HEENT normocephalic and head/scalp atraumatic Eyes PERRL and EOMs intact bilaterally Neck supple and No nodes Resp clear to auscultation bilaterally Auscultation: diminished lung sounds Cardio regular rate and regular rhythm GI soft to palpation, non-tender and non-distended Extremity General Extremity: edema Skin no rashes or lesions noted Neuro CN's II-XII intact bilaterally Lab / Micro Data Attestation: I reviewed the patient's lab results. 03/27/24 06:10 03/28/24 05:46 Labs: Laboratory Results - last 24 hr 03/27/24 16:39: POC Glucose 207 H 03/27/24 22:24: POC Glucose 189 H 03/28/24 05:46: Sodium 140, Potassium 3.5, Chloride 105, Carbon Dioxide 29.0, Anion Gap 6, BUN 24 H, Creatinine 0.87, Estim Creat Clear Calc 68.82, Est GFR (MDRD) Af Amer 82, Est GFR (MDRD) Non-Af 68, BUN/Creatinine Ratio 27.5 H, Glucose 132 H, Calcium 8.1 L 03/28/24 06:28: POC Glucose 111 H 03/28/24 11:52: POC Glucose 162 H
[2024-03-28] MEDS: Ipratropium/Albuterol Sulfate 3 ML AMPUL.NEB INHALATION ×2 (13:38→19:12)
[2024-03-28] MEDS: Insulin Glargine-YFGN 100 UNIT/ML Pen 10 UNIT SC (16:04)
[2024-03-28] MEDS: BENZOCAINE/MENTHOL 1 LOZENGE MUCOUS MEM (16:14)
--- NOTE | 2024-03-28 17:10 | PN.HOSP_ITS ---
Subjective Subjective Breathing little bit easier today, felt like she needed 1 more day with Lasix in the morning Objective Data Objective Data Vital Signs: Vital Signs Temp Pulse Resp BP Pulse Ox O2 Del Method O2 Flow Rate 98.3 F 63 18 126/78 H 96 Nasal Cannula 4 03/28/24 16:01 03/28/24 16:01 03/28/24 16:01 03/28/24 16:01 03/28/24 16:01 03/28/24 16:01 03/28/24 16:01 Oxygen Flow Rate (L/min) [ 6 AMBULATING with Oxygen #3] Oxygen Flow Rate (L/min) [ 4 AMBULATING with Oxygen #2] Oxygen Flow Rate (L/min) [ 3 AMBULATING with Oxygen #1] Oxygen Flow Rate (L/min) [At 3 REST with Oxygen] Oxygen Flow Rate (L/min) 4 Oxygen Delivery Method Nasal Cannula Weight: 236 lb 5.369 oz Body Mass Index (BMI) 40.3 Intake & Output: Intake and Output for Last 24 Hours 03/27/24 03/28/24 03/29/24 03:59 03:59 03:59 Intake Total 580 / 580 300 / 300 450 / 450 Output Total 400 / 400 300 / 300 Balance 580 / 580 -100 / -100 150 / 150 Lab / Micro Data 03/27/24 06:10 03/28/24 05:46 Labs: Laboratory Results - last 24 hr 03/27/24 16:39: POC Glucose 207 H 03/27/24 22:24: POC Glucose 189 H 03/28/24 05:46: Sodium 140, Potassium 3.5, Chloride 105, Carbon Dioxide 29.0, Anion Gap 6, BUN 24 H, Creatinine 0.87, Estim Creat Clear Calc 68.82, Est GFR (MDRD) Af Amer 82, Est GFR (MDRD) Non-Af 68, BUN/Creatinine Ratio 27.5 H, G lucose 132 H, Calcium 8.1 L 03/28/24 06:28: POC Glucose 111 H 03/28/24 11:52: POC Glucose 162 H Micro: Microbiology 03/24/24 10:10 Sputum, Expectorated/Coughed Gram Stain - Final 03/24/24 10:10 Sputum, Expectorated/Coughed Respiratory Culture - Final Staphylococcus aureus 03/23/24 22:10 Blood Culture (Wb) - Right Wrist Blood Culture - Preliminary No growth in 48 hours. 03/25/24 17:50 Nasal Secretion MRSA (PCR) - Final 03/24/24 06:22 Urine, Clean Catch Legionella Antigen - Final 03/24/24 06:22 Urine, Clean Catch Streptococcus pneumoniae Antigen (M - Final 03/24/24 02:53 Nasal Secretion MRSA (PCR) - Final 03/24/24 02:53 Mucosa - Nose Respiratory Panel (PCR) - Final 03/23/24 22:29 Mucosa - Nose SARS-CoV-2, Influenza & RSV (PCR) - Final Physical Exam Narrative General: Alert, Oriented x3, Cooperative, No apparent distress HEENT: Atraumatic, PERRLA, EOMI, Normocephalic Oral: Moist Mucosa Neck: Supple, No JVD Lungs: Diminished, Normal air movement, No rhonchi, scattered wheeze, No rales Cardiovascular: Regular rate, Regular Rhythm, Normal S1, Normal S2, No murmurs Abdomen: Soft, Non Tender, Non-Distended, No Hepato-splenomegaly Extremities: No edema, Capillary Refill Less than 3 Seconds Skin: No rashes, No breakdown Musculoskeletal: No Tenderness to Palpation of Joints or Extremities Neurological: No focal neurological deficits, Motor Exam 5/5 strength throughout, Sensory exam intact to light touch and pain Psych/Mental Status: Normal Affect, Appropriate Assessment & Plan Assessment/Plan (1) Acute and chronic respiratory failure with hypoxia: (2) Pneumonia: (3) New onset a-fib: PLAN: Plan #1. Acute on Chronic Hypoxic secondary to Acute RML Pneumonia, Community Acquired with associated lactic acidosis suspected secondary to her hypoxemia: Patient is being admitted in PCU status but currently in ED. On baseline 2 to 3 L of oxygen at night with CPAP. Chest x-ray and states CT initially reviewed and shows right lower lobe consolidation with small right pleural effusion. Started on IV antibiotic ceftriaxone and azithromycin. Pneumonia infectious workup so far negative including respiratory panel, urinary antigen, and triple PCR for SARS-CoV-2, flu and RSV are negative 03/25/2024: Prelim sputum culture growing 2+ GPC, 2+ GPR. ID consult requested and discussed with him. Patient already had echo which did not show vegetation. No further need for SRINIVASA. Vancomycin added and Zithromax discontinued. 03/26/2024: MSSA pneumonia, will discontinue vancomycin continue with Rocephin 03/27/2024: She required 8 L with ambulation today, will trial her on a dose of IV Lasix 03/28/2024: She still feels short of breath but show needed 4 L with ambulation today, she would like to see how she will feel tomorrow after Lasix in the morning 2. Mild esophageal dysphagia: Patient states he has mild dysphagia for last 2 to 3 years and it happens randomly sometime once in a month or once in 3 months. It can happen with any solid food but not liquid food. GI consulted. Had EGD suspected motility disorder EGD 03/25/2020 03/26/2024: EGD with esophagitis and gastritis, will start on twice daily PPI #2. Paroxysmal atrial fibrillation w/ RVR, new onset with PVCs: EKG in ED w/ atrial fibrillation w/ RVR. Patient administered Cardizem 10 mg bolus in ED. cardiac enzymes negative. BNP slightly elevated. CHADVASC score is high therefore started on Eliquis. Rate controlled with carvedilol. 03/25: 2D echo shows EF 65% with mild aortic stenosis and calcification in noncoronary cusp of aortic valve. #3. Chronic macrocytic anemia: Admission hemoglobin 11.8, MCV 99.2, baseline hemoglobin more recently has been lower at 12 range. No acute issues 03/25 H&H at baseline. #4. Nonobstructive CAD/nonischemic cardiomyopathy: Patient with single-vessel diagonal branch disease, nonobstructive, following with cardiology with last evaluation 08/28/2023 in the office, continue aspirin, statin, Coreg, lisinopril home regimen. #5. Mild COPD exacerbation with chronic hypoxic respiratory failure (2-3L NC) due to pneumonia: Patient complained that he has increased shortness of breath for about 2 to 3 days along with cough but no change in his sputum. continue oxygen supplementation with wean as tolerated to home 2 to 3 L supplementation. Patient is being managed on scheduled bronchodilator, IV Solu-Medrol, Mucinex, incentive spirometry and Pep. 03/25: Shortness of breath and wheezing better. 03/26/2024: Will decrease Solu-Medrol to daily prednisone #6. Hypertension: Continue home regimen including lisinopril, Coreg and IV as needed Daniel. #7. Hyperlipidemia: We will continue patient on statin therapy. FLP #8. Chronic Kidney Disease Stage IIIa : Admission BUN/Cr 25/1.27, GFR 44, baseline r appears 0.7-1.1, repeat creatinine shows 1.09, BUN 24. #9. JONO: Patient does not use CPAP or BiPAP but only supplemental oxygen at night, will continue supplementation as noted above #1 with wean as tolerated to previous home level. #10. Morbid Obesity: Weight loss and lifestyle changes encouraged. #11. Former Tobacco Abuse: Encouraged continued tobacco cessation. #12. Hyperglycemia: Glucose in BMP elevated 154, 189. Accu-Chek AC incorrigible sliding scale. A1c tomorrow AM 13. Electrolyte abnormality: Serum magnesium level, 0.9. Hypomagnesemia, magnesium sulfate replaced. Repeat magnesium 1.9. DVT: Eliquis Charges/Coding Visit Charges Inpatient E&M: 55623 Subs Hosp L2
[2024-03-28 17:26] LABS: Bedside Glucose 242 mg/dL (74-106)
[2024-03-28] MEDS: Doxycycline 100 MG CAPSULE PO (20:20)
[2024-03-28] MEDS: Atorvastatin Calcium 20 MG Tablet PO (20:21)
[2024-03-28] MEDS: Imipramine HCl 25 MG Tablet PO (20:22)
[2024-03-28 21:00] LABS: Bedside Glucose 155 mg/dL (74-106)
[2024-03-29 02:55] VITALS: BP 155/68; PULSE 59; RESP 18; TEMP 35.6; O2SAT 96
[2024-03-29 04:11] VITALS: BMI 40.6
[2024-03-29] MEDS: BENZOCAINE/MENTHOL 1 LOZENGE MUCOUS MEM ×2 (06:21→11:16)
[2024-03-29 06:45] LABS: Bedside Glucose 119 mg/dL (74-106)
[2024-03-29] MEDS: Ipratropium/Albuterol Sulfate 3 ML AMPUL.NEB INHALATION ×2 (07:23→13:08)
[2024-03-29 07:24] VITALS: PULSE 68; RESP 19; O2SAT 94
[2024-03-29] MEDS: Furosemide 40 MG/4 ML Vial IV (07:56)
[2024-03-29 07:59] VITALS: BP 139/60; PULSE 66; RESP 16; TEMP 36.7; O2SAT 95
[2024-03-29] MEDS: predniSONE 20 MG Tablet 40 MG PO (08:00)
[2024-03-29] MEDS: Carvedilol 25 MG Tablet PO (08:01)
[2024-03-29] MEDS: Doxycycline 100 MG CAPSULE PO (08:01)
[2024-03-29] MEDS: amLODIPine 10 MG Tablet PO (08:01)
[2024-03-29] MEDS: guaiFENesin/D-Methorphan TAB.SR.12H 1 TABLET PO (08:01)
[2024-03-29] MEDS: APIXABAN 5 MG TABLET PO (08:01)
[2024-03-29] MEDS: Aspirin E.C. 81 MG Tablet PO (08:01)
[2024-03-29] MEDS: buPROPion (XL) 300 MG TABLET.XL PO (08:02)
[2024-03-29] MEDS: Pantoprazole Sodium 40 MG Tablet PO (08:02)
[2024-03-29] MEDS: Lisinopril 40 MG Tablet PO (08:02)
[2024-03-29 08:46] LABS: Anion Gap 6 (5-15); BUN 22 mg/dL (7-18); BUN/Creat Ratio 22.7 RATIO (10-20); Calcium,Total 8.4 mg/dL (8.5-10.1); Chloride 103 mmol/L (98-107); Creatinine, Serum 0.97 mg/dL (0.55-1.02); EST Glomerular Filtration Rate 60 mL/min (>60); Est Glom Filt Rate - Afr Amer 72 mL/min (>60); Estimated Creatinine Clearance 61.96 ml/min; Glucose 116 mg/dL (74-106); Potassium 3.5 mmol/L (3.5-5.1); Sodium Level 139 mmol/L (136-145)
[2024-03-29 11:00] VITALS: O2SAT 85; O2SAT 88; O2SAT 89; O2SAT 90
[2024-03-29] MEDS: Insulin Lispro 100 UNIT/ML INSULN.PEN SC (11:17)
[2024-03-29 12:17] LABS: Bedside Glucose 190 mg/dL (74-106)
--- NOTE | 2024-03-29 12:57 | DCINST_ITS ---
Discharge Instructions Diet Discharge Diet: Low fat / Low cholesterol, 8 Cup Fluid Restriction and Carb Control Diet Activity Discharge Activity: Return to Normal Activity Dressing / Incision Call your doctor if you observe: Fever of 101 or Higher, Shortness of breath, Dizziness, Fainting spells, Swelling in the ankles, Chest pain and Increased palpitations (irregular heartbeat) Follow Up Care Test Results: Test results from this visit will be discussed in further detail at your follow- up appointment, if applicable. Discharge Plan Admission Admit Date/Time: 03/23/24 23:33 Attending Provider: Farhad Garza Primary Care Provider: Justin Bolden Consulting Providers: Chantelle Chavarria; Niles Mcleod; Eb Hdez Discharge Orders/Prescriptions Prescriptions: New doxycycline monohydrate 100 mg Capsule 100 mg PO BID 3 Days Qty: 6 0RF pantoprazole 40 mg Tablet,Delayed Release (Dr/Ec) 40 mg PO BID 30 Days Qty: 60 0RF Eliquis 5 mg Tablet 5 mg PO BID 30 Days Qty: 60 0RF prednisone 10 mg tablet 40 mg PO BREAKFAST Qty: 18 0RF Rx Instructions: Take 3 tablets daily for 3 days then 2 tablets daily for 3 days then 1 tablet daily for 3 days furosemide 40 mg tablet 40 mg PO DAILY Qty: 7 0RF Continued metformin 1,000 mg tablet 1,000 mg PO BID cholecalciferol (vitamin D3) 25 mcg (1,000 unit) capsule 25 mcg PO DAILY Combivent Respimat 20-100 mcg/actuation mist 1 puff inhalation BID Trelegy Ellipta 200-62.5-25 mcg blister with device 1 inh inhalation DAILY Qty: 60 6RF aspirin 81 MG tablet 81 mg PO DAILY simvastatin 40 MG tablet 40 mg PO QHS albuterol sulfate 1 PUFF inhaler 2 puff INHALATION Q4H PRN (Reason: SHORTNESS OF BREATH/WHEEZING ) imipramine HCl 25 MG tablet 25 - 50 mg PO QHS carvedilol 25 mg tablet 25 mg PO Q12H lisinopril 40 mg tablet 40 mg PO DAILY bupropion HCl 300 mg tablet extended release 24 hr 300 mg PO DAILY amlodipine 10 mg Tablet 10 mg PO DAILY Qty: 30 1RF (DME) Nebulizer machine See Rx Instructions .ROUTE .MEDSUPPLY Qty: 1 0RF Rx Instructions: As directed Referrals / Follow Up: Justin Bolden MD [Primary Care Provider] - Disposition Disposition (needs filled in before D/C Order can be placed): Home, Self Care
[2024-03-29 13:08] VITALS: PULSE 71; RESP 22
--- NOTE | 2024-03-29 14:41 | CASEMGMT ---
Patient has order for discharge. Patient discharging on Eliquis, copay is $140, savings card applied. MEDINA CM in to discuss needs at discharge. Patient states will bring oxygen tank from home. MEDINA LANDIN updated patient regarding Eliquis cost and savings card. Patient denies need for HHC as she is at her baseline. Patient is maintaining on her home oxygen orders. Patient denied further questions or concerns. Discharge plan updated.
[2024-03-29 14:47] VITALS: O2SAT 95
--- NOTE | 2024-03-29 15:38 | DS.PCM_ITS ---
Providers Date of Admission: 03/23/24 Primary Care Physician: Dr. Justin Bolden MD Consultations 03/24/24 13:24 Consult: Gastroenterology Routine Consulting Provider: [facility] Reason for Consult: foreign body EMERGENT Consult: No MD Notified: Yes Date Notified: 03/24/24 Time Notified: 13:24 Method of Notification: Verbal 03/25/24 15:57 Consult: Infectious Disease Routine Consulting Provider: Niles Mcleod Reason for Consult: STAPH Pneumonia, echo neg for vegetation EMERGENT Consult: No MD Notified: Yes Date Notified: 03/25/24 Time Notified: 15:58 Method of Notification: Verbal Reason For Visit: HYPOXIA PNA Diagnosis Discharge Diagnosis (1) Acute and chronic respiratory failure with hypoxia: Status: Chronic Code(s): J96.21 - Acute and chronic respiratory failure with hypoxia (2) Pneumonia: Status: Acute Code(s): J18.9 - Pneumonia, unspecified organism (3) New onset a-fib: Status: Acute Code(s): I48.91 - Unspecified atrial fibrillation Medications at Discharge Home Medications albuterol sulfate 90 mcg/actuation aerosol inhaler 2 puff inhalation Q4H PRN SHORTNESS OF BREATH/WHEEZING 10/02/16 aspirin 81 mg tablet,delayed release 81 mg PO DAILY HEART HEALTH 10/02/16 imipramine HCl 25 mg tablet 25 - 50 mg PO QHS BLADDER CONTROL 10/02/16 simvastatin 40 mg tablet 40 mg PO QHS CHOLESTEROL 10/02/16 Nebulizer machine #1 ea 09/15/23 bupropion HCl 300 mg 24 hr tablet, extended release 300 mg PO DAILY mental health 10/12/23 carvedilol 25 mg tablet 25 mg PO Q12H HEART 10/12/23 lisinopril 40 mg tablet 40 mg PO DAILY blood pressure 10/12/23 amlodipine 10 mg tablet 10 mg PO DAILY blood pressure #30 tabs 10/14/23 cholecalciferol (vitamin D3) 25 mcg (1,000 unit) capsule 25 mcg PO DAILY vitamin 03/08/24 fluticasone fur. 200 mcg-umeclid 62.5 mcg-vilant 25 mcg inhalat.powder (Trelegy Ellipta) 1 inh inhalation DAILY breathing #60 ea 03/08/24 ipratropium 20 mcg-albuterol 100 mcg/actuation mist for inhalation (Combivent Respimat) 1 puff inhalation BID 03/08/24 metformin 1,000 mg tablet 1,000 mg PO BID 03/08/24 apixaban 5 mg tablet (Eliquis) 5 mg PO BID 30 days #60 tabs 03/29/24 doxycycline monohydrate 100 mg capsule 100 mg PO BID 3 days #6 caps 03/29/24 furosemide 40 mg tablet 40 mg PO DAILY #7 tabs 03/29/24 pantoprazole 40 mg tablet,delayed release 40 mg PO BID 30 days #60 tabs 03/29/24 prednisone 10 mg tablet 40 mg (4 x 10 mg) PO BREAKFAST #18 tabs 03/29/24 Hospital Course Procedures 2-D Echocardiogram and EGD Summary of Care Provided Minutes Spent on Discharge: 39 Hospital Course: Per HPI: The patient is a 73 y/o F w/ PMHx: JONO using oxygen qHS only, CKD possible stage III unclear subtype, Morbid Obesity, HTN, HLD, Chronic COPD w/ Chronic Hypoxic Respiratory Failure (2-3L NC), Former tobacco use, Nonobstructive CAD/Nonischemic cardiomyopathy, Chronic anemia who presents to the [facility] ED on 03/23/24 with dyspnea worsening over the last 48 hours with onset of rhinorrhea, sore throat and cough starting the day prior with increased oxygen supplementation needs although she does note that her concentrator was having issues today prompting her to call the company with low oxygen levels into the 80s at home prompting EMS call with no recent increased lower extremity swelling or orthopnea but she has recently been more exposed to chemicals as they have been painting inside the house with no other ill contacts. Workup in the ED included T99.2, heart rate 117, BP 126/59, respiratory rate 23, 91% on 6 L nasal cannula normally on 2 L nasal cannula chronically with most recent repeat assessment T99, heart rate 105, BP 115/68, respiratory rate 25, 90% on 5 L nasal cannula, CBC with WBC 36.2, hemoglobin 0.8, MCV 99.2, platelet 188 with left shift, CMP with BUN/creatinine 25/1.27, GFR 44, glucose 154, lactic acid 2.8, hepatic profile not marked appearing, BNP 190.7, troponin 6, chest x-ray with small right-sided pleural effusion with basilar opacity possibly atelectasis versus pneumonia, blood culture x 2 pending per ED, rapid SARS COVID/influenza/RSV PCR negative, pending CT of the chest per ED physician upon requested evaluation patient. In the ED patient ministered DuoNeb therapy, Motrin 600 mg p.o. x 1, Zithromax 500 mg IV times 1 as well as Rocephin 1 g IV x 1. Hospital Course: #1. Acute on Chronic Hypoxic secondary to Acute RML Pneumonia, Community Acquired with associated lactic acidosis suspected secondary to her hypoxemia: Patient is being admitted in PCU status but currently in ED. On baseline 2 to 3 L of oxygen at night with CPAP. Chest x-ray and states CT initially reviewed and shows right lower lobe consolidation with small right pleural effusion. Started on IV antibiotic ceftriaxone and azithromycin. Pneumonia infectious workup so far negative including respiratory panel, urinary antigen, and triple PCR for SARS-CoV-2, flu and RSV are negative 03/25/2024: Prelim sputum culture growing 2+ GPC, 2+ GPR. ID consult requested and discussed with him. Patient already had echo which did not show vegetation. No further need for SRINIVASA. Vancomycin added and Zithromax discontinued. 03/26/2024: MSSA pneumonia, will discontinue vancomycin continue with Rocephin 03/27/2024: She required 8 L with ambulation today, will trial her on a dose of IV Lasix 03/28/2024: She still feels short of breath but show needed 4 L with ambulation today, she would like to see how she will feel tomorrow after Lasix in the morning 03/29/2024: She is feeling much better today and required 3 L at rest and 5 to 6 L with ambulation. I discussed with her the plan for discharge and she expressed understanding of the risk benefits of going home and would like to go home today. Appreciate infectious disease assistance, she was transition to p.o. doxycycline for MSSA in her sputum. She will be discharged on 3 more days. I also elected to discharge her on a short steroid taper as well as several days of p.o. Lasix as this seemed to help with her breathing here in the hospital. Of note she was started on Eliquis during this admission secondary to a new onset A-fib, her hemoglobin remained stable despite the EGD with esophagitis and gastritis therefore safe to continue on discharge as well with PPI. 2. Mild esophageal dysphagia: Patient states he has mild dysphagia for last 2 to 3 years and it happens randomly sometime once in a month or once in 3 months. It can happen with any solid food but not liquid food. GI consulted. Had EGD suspected motility disorder EGD 03/25/2020 03/26/2024: EGD with esophagitis and gastritis, will start on twice daily PPI 03/29/2024: Will discharge on PPI twice daily for a month and can likely transition to daily dosing after that #2. Paroxysmal atrial fibrillation w/ RVR, new onset with PVCs: EKG in ED w/ atrial fibrillation w/ RVR. Patient administered Cardizem 10 mg bolus in ED. cardiac enzymes negative. BNP slightly elevated. CHADVASC score is high therefore started on Eliquis. Rate controlled with carvedilol. 03/25: 2D echo shows EF 65% with mild aortic stenosis and calcification in noncoronary cusp of aortic valve. #3. Chronic macrocytic anemia: Admission hemoglobin 11.8, MCV 99.2, baseline hemoglobin more recently has been lower at 12 range. No acute issues 03/25 H&H at baseline. #4. Nonobstructive CAD/nonischemic cardiomyopathy: Patient with single-vessel diagonal branch disease, nonobstructive, following with cardiology with last evaluation 08/28/2023 in the office, continue aspirin, statin, Coreg, lisinopril home regimen. #5. Mild COPD exacerbation with chronic hypoxic respiratory failure (2-3L NC) due to pneumonia: Patient complained that he has increased shortness of breath for about 2 to 3 days along with cough but no change in his sputum. continue oxygen supplementation with wean as tolerated to home 2 to 3 L supplementation. Patient is being managed on scheduled bronchodilator, IV Solu-Medrol, Mucinex, incentive spirometry and Pep. 03/25: Shortness of breath and wheezing better. 03/26/2024: Will decrease Solu-Medrol to daily prednisone 03/29/2024: Will discharge on a short prednisone taper #6. Hypertension: Continue home regimen including lisinopril, Coreg and IV as needed Daniel. #7. Hyperlipidemia: We will continue patient on statin therapy. FLP #8. Chronic Kidney Disease Stage IIIa : Admission BUN/Cr 25/1.27, GFR 44, baseline r appears 0.7-1.1, repeat creatinine shows 1.09, BUN 24. #9. JONO: Patient does not use CPAP or BiPAP but only supplemental oxygen at night, will continue supplementation as noted above #1 with wean as tolerated to previous home level. #10. Morbid Obesity: Weight loss and lifestyle changes encouraged. #11. Former Tobacco Abuse: Encouraged continued tobacco cessation. #12. Hyperglycemia: Glucose in BMP elevated 154, 189. Accu-Chek AC incorrigible sliding scale. A1c tomorrow AM 13. Electrolyte abnormality: Serum magnesium level, 0.9. Hypomagnesemia, magnesium sulfate replaced. Repeat magnesium 1.9. Physical Exam Narrative General: Alert, Oriented x3, Cooperative, No apparent distress HEENT: Atraumatic, PERRLA, EOMI, Normocephalic Oral: Moist Mucosa Neck: Supple, No JVD Lungs: Diminished, Normal air movement, No rhonchi, scattered wheeze, No rales Cardiovascular: Regular rate, Regular Rhythm, Normal S1, Normal S2, No murmurs Abdomen: Soft, Non Tender, Non-Distended, No Hepato-splenomegaly Extremities: No edema, Capillary Refill Less than 3 Seconds Skin: No rashes, No breakdown Musculoskeletal: No Tenderness to Palpation of Joints or Extremities Neurological: No focal neurological deficits, Motor Exam 5/5 strength throughout, Sensory exam intact to light touch and pain Psych/Mental Status: Normal Affect, Appropriate Weight / BMI Weight Weight: 237 lb 14.06 oz Body Mass Index (BMI) 40.6 ABG / Lab / Microbiology Data 03/27/24 06:10 03/29/24 06:22 Laboratory: Laboratory Results - last 24 hr 03/28/24 15:59: POC Glucose 242 H 03/28/24 20:17: POC Glucose 155 H 03/29/24 06:13: POC Glucose 119 H 03/29/24 06:22: Sodium 139, Potassium 3.5, Chloride 103, Carbon Dioxide 30.0, Anion Gap 6, BUN 22 H, Creatinine 0.97, Estim Creat Clear Calc 61.96, Est GFR (MDRD) Af Amer 72, Est GFR (MDRD) Non-Af 60, BUN/Creatinine Ratio 22.7 H, G lucose 116 H, Calcium 8.4 L 03/29/24 11:12: POC Glucose 190 H Microbiology: Microbiology 03/23/24 22:10 Blood Culture (Wb) - Right Wrist Blood Culture - Final No growth in 5 days. 03/24/24 10:10 Sputum, Expectorated/Coughed Gram Stain - Final 03/24/24 10:10 Sputum, Expectorated/Coughed Respiratory Culture - Final Staphylococcus aureus 03/25/24 17:50 Nasal Secretion MRSA (PCR) - Final 03/24/24 06:22 Urine, Clean Catch Legionella Antigen - Final 03/24/24 06:22 Urine, Clean Catch Streptococcus pneumoniae Antigen (M - Final 03/24/24 02:53 Nasal Secretion MRSA (PCR) - Final 03/24/24 02:53 Mucosa - Nose Respiratory Panel (PCR) - Final 03/23/24 22:29 Mucosa - Nose SARS-CoV-2, Influenza & RSV (PCR) - Final D/C Instructions Discharge Diet: Low fat / Low cholesterol, 8 Cup Fluid Restriction and Carb Control Diet Call your doctor if you observe: Fever of 101 or Higher, Shortness of breath, Dizziness, Fainting spells, Swelling in the ankles, Chest pain and Increased palpitations (irregular heartbeat) Meaningful Use Info Meaningful Use Meaningful Use Diagnoses (Choose all that apply): None applicable Ischemic Stroke Statin Dosing Therapy Reference: STATIN DOSE THERAPY REFERENCE: * Patients > 75 years receive moderate or high dose statin therapy. * Patients 75 years or YOUNGER should receive HIGH intensity statin dose unless contraindicated. You will be required to document reason for non-treatment if statin daily dose does not meet guidelines. HIGH DOSE STATIN THERAPY DAILY Atorvastatin > than or = to 40 mg Rosuvastatin > than or = to 20 mg Amlodipine + Atorvastatin > than or = to 2.5/40 mg Ezetimibe + Simvastatin 10/80 mg Simvastatin 80mg Discharge Plan Admission Admit Date/Time: 03/23/24 23:33 Attending Provider: Farhad Garza Primary Care Provider: Justin Bolden Consulting Providers: Chantelle Chavarria; Niles Mcleod; Eb Hdez Discharge Orders/Prescriptions Prescriptions: New doxycycline monohydrate 100 mg Capsule 100 mg PO BID 3 Days Qty: 6 0RF pantoprazole 40 mg Tablet,Delayed Release (Dr/Ec) 40 mg PO BID 30 Days Qty: 60 0RF Eliquis 5 mg Tablet 5 mg PO BID 30 Days Qty: 60 0RF prednisone 10 mg tablet 40 mg PO BREAKFAST Qty: 18 0RF Rx Instructions: Take 3 tablets daily for 3 days then 2 tablets daily for 3 days then 1 tablet daily for 3 days furosemide 40 mg tablet 40 mg PO DAILY Qty: 7 0RF Continued metformin 1,000 mg tablet 1,000 mg PO BID cholecalciferol (vitamin D3) 25 mcg (1,000 unit) capsule 25 mcg PO DAILY Combivent Respimat 20-100 mcg/actuation mist 1 puff inhalation BID Trelegy Ellipta 200-62.5-25 mcg blister with device 1 inh inhalation DAILY Qty: 60 6RF aspirin 81 MG tablet 81 mg PO DAILY simvastatin 40 MG tablet 40 mg PO QHS albuterol sulfate 1 PUFF inhaler 2 puff INHALATION Q4H PRN (Reason: SHORTNESS OF BREATH/WHEEZING ) imipramine HCl 25 MG tablet 25 - 50 mg PO QHS carvedilol 25 mg tablet 25 mg PO Q12H lisinopril 40 mg tablet 40 mg PO DAILY bupropion HCl 300 mg tablet extended release 24 hr 300 mg PO DAILY amlodipine 10 mg Tablet 10 mg PO DAILY Qty: 30 1RF (DME) Nebulizer machine See Rx Instructions .ROUTE .MEDSUPPLY Qty: 1 0RF Rx Instructions: As directed Referrals / Follow Up: Justin Bolden MD [Primary Care Provider] - ([facility] called and the office was closed for lunch. ) Disposition Disposition (needs filled in before D/C Order can be placed): Home, Self Care Charges/Coding Visit Charges Inpatient E&M: 66460 Disch Hosp >30min
--- NOTE | 2024-03-29 16:08 | PHA.DC.MC.R ---
Pharmacy [facility] has performed discharge medication reconciliation and counseling for this patient. 1. APIXABAN 5MG PO BID 2. DOXYCYCLINE 100MG PO BID X 3 DAYS 3. FUROSEMIDE 40MG PO DAILY 4. PANTOPRAZOLE 40MG PO DAILY 5. PREDNISONE 30MG PO DAILY X 3 DAYS, 20MG X 3 DAYS, 10MG X 3 DAYS The patient's discharge medication list was reviewed for discrepancies and discrepancies were resolved. The patient was counseled on the following discharge medications and changes in medications for homegoing were reviewed. The Reason for Use, instructions for use, and potential side effects were reviewed for all new medications. The patient's questions regarding all of their medications were answered. The patient was able to verbally demonstrate an understanding of their discharge medications. Medications at Discharge Home Medications albuterol sulfate 90 mcg/actuation aerosol inhaler 2 puff inhalation Q4H PRN SHORTNESS OF BREATH/WHEEZING 10/02/16 aspirin 81 mg tablet,delayed release 81 mg PO DAILY HEART HEALTH 10/02/16 imipramine HCl 25 mg tablet 25 - 50 mg PO QHS BLADDER CONTROL 10/02/16 simvastatin 40 mg tablet 40 mg PO QHS CHOLESTEROL 10/02/16 Nebulizer machine #1 ea 09/15/23 bupropion HCl 300 mg 24 hr tablet, extended release 300 mg PO DAILY mental health 10/12/23 carvedilol 25 mg tablet 25 mg PO Q12H HEART 10/12/23 lisinopril 40 mg tablet 40 mg PO DAILY blood pressure 10/12/23 amlodipine 10 mg tablet 10 mg PO DAILY blood pressure #30 tabs 10/14/23 cholecalciferol (vitamin D3) 25 mcg (1,000 unit) capsule 25 mcg PO DAILY vitamin 03/08/24 fluticasone fur. 200 mcg-umeclid 62.5 mcg-vilant 25 mcg inhalat.powder (Trelegy Ellipta) 1 inh inhalation DAILY breathing #60 ea 03/08/24 ipratropium 20 mcg-albuterol 100 mcg/actuation mist for inhalation (Combivent Respimat) 1 puff inhalation BID 03/08/24 metformin 1,000 mg tablet 1,000 mg PO BID 03/08/24 apixaban 5 mg tablet (Eliquis) 5 mg PO BID 30 days #60 tabs 03/29/24 doxycycline monohydrate 100 mg capsule 100 mg PO BID 3 days #6 caps 03/29/24 furosemide 40 mg tablet 40 mg PO DAILY #7 tabs 03/29/24 pantoprazole 40 mg tablet,delayed release 40 mg PO BID 30 days #60 tabs 03/29/24 prednisone 10 mg tablet 40 mg (4 x 10 mg) PO BREAKFAST #18 tabs 03/29/24
== END 2024-03-29 16:10 | disposition home or self-care (01) | DRG 871 ==
LOC: ED 03-24 00:41 → PCU 03-24 01:53
PROVIDERS: Internal Medicine; Internal Medicine Gastroenterology; Admitting Provider Family Medicine; Emergency Provider Emergency Medicine; PCP Family Medicine; Visit Provider Family Medicine
PROC: 0DJ08ZZ Inspection of Upper Intestinal Tract, Via Natural or Artificial Opening Endoscopic (ICD-10-PCS; CPT 43235; principal; 2024-03-25 12:40)
DX: A41.2 Sepsis due to unspecified staphylococcus (principal); J15.211 Pneumonia due to Methicillin susceptible Staphylococcus aureus; J96.21 Acute and chronic respiratory failure with hypoxia; E87.20 Acidosis, unspecified; I42.8 Other cardiomyopathies; J44.1 Chronic obstructive pulmonary disease with (acute) exacerbation; I48.0 Paroxysmal atrial fibrillation; N18.30 Chronic kidney disease, stage 3 unspecified; E66.01 Morbid (severe) obesity due to excess calories; I12.9 Hypertensive chronic kidney disease with stage 1 through stage 4 chronic kidney disease, or unspecified chronic kidney disease; D53.9 Nutritional anemia, unspecified; I70.0 Atherosclerosis of aorta; I35.0 Nonrheumatic aortic (valve) stenosis; E78.5 Hyperlipidemia, unspecified; G47.33 Obstructive sleep apnea (adult) (pediatric); I25.10 Atherosclerotic heart disease of native coronary artery without angina pectoris; N18.31 Chronic kidney disease, stage 3a; K29.70 Gastritis, unspecified, without bleeding; K21.00 Gastro-esophageal reflux disease with esophagitis, without bleeding; Z87.891 Personal history of nicotine dependence; Z66 Do not resuscitate; Z79.82 Long term (current) use of aspirin; Z79.51 Long term (current) use of inhaled steroids; R73.9 Hyperglycemia, unspecified; I49.3 Ventricular premature depolarization; R13.10 Dysphagia, unspecified; Z79.891 Long term (current) use of opiate analgesic; Z82.49 Family history of ischemic heart disease and other diseases of the circulatory system; Z83.49 Family history of other endocrine, nutritional and metabolic diseases; Z80.9 Family history of malignant neoplasm, unspecified
CPT/HCPCS: 36415; 71045; 71250; 80048; 80053; 80061; 80076; 82962; 83036; 83605; 83735; 83880; 84443; 84484; 85025; 85610; 85730; 87040; 87070; 87077; 87186; 87205; 87449; 87631; 87633; 87641; 88305; 88312; 93005; 93306; 94640; 94668; 97110; 97162; 97165; 97530; 99285; J7030; J7040; J7120; A4216; C1769; J1940; J2405

== ENCOUNTER → 2024-08-01 | Outpatient (CLI) | payer MEDICARE, OTHER, SELFPAY ==
[2024-08-01 18:07] LABS: ALB/GLOB Ratio 0.7 RATIO (0.9-2.4); AST(SGOT) 26 U/L (15-37); Alanine Aminotransfer ALT/SGPT 30 U/L (13-56); Albumin, Serum 2.9 g/dL (3.2-5.0); Alkaline Phosphatase 92 U/L (45-117); Anion Gap 12 (5-15); BUN 21 mg/dL (7-18); BUN/Creat Ratio 19.1 RATIO (10-20); Calcium,Total 8.3 mg/dL (8.5-10.1); Chloride 105 mmol/L (98-107); Cholesterol 141 mg/dL (200); EST Glomerular Filtration Rate 52 mL/min (>60); Est Glom Filt Rate - Afr Amer 63 mL/min (>60); Globulin 4.3 g/dL (2.2-4.2); Glucose 139 mg/dL (74-106); High Density Lipoprotein 53 mg/dL; Potassium 3.6 mmol/L (3.5-5.1); Protein, Total 7.2 g/dL (6.4-8.2); Sodium Level 141 mmol/L (136-145); Triglycerides 103 mg/dL; Very Low Density Lipoprotein 21 mg/dL (5-40)
[2024-08-01 18:13] LABS: Hemoglobin A1c 5.8 % (3.8-5.6)
== END | disposition home or self-care (01) ==
LOC: MFPLAB 13:55
PROVIDERS: PCP Family Medicine; Referring Provider Family Medicine; Visit Provider Family Medicine
DX: I10 Essential (primary) hypertension (principal)
CPT/HCPCS: 36415; 80053; 80061; 83036

== ENCOUNTER 2024-08-28 20:00 | Inpatient (IN) | payer MEDICARE, OTHER, SELFPAY ==
[2024-08-28] VITALS (8 sets, daily range): BP systolic 126–136; BP diastolic 55–84; PULSE 83–88; RESP 20–24; TEMP 36.8; O2SAT 80–96; BMI 41.9
--- NOTE | 2024-08-28 20:11 | EDS_ITS ---
HPI History of Present Illness Chief Complaint: Shortness of Breath [facility] Medical History Chronic hypoxic respiratory failure, on home oxygen therapy Morbid obesity CKD (chronic kidney disease), stage III Sleep apnea Nonischemic cardiomyopathy Essential (primary) hypertension LBBB (left bundle branch block) COPD (chronic obstructive pulmonary disease) Hyperlipidemia Nicotine abuse Atherosclerotic heart disease of [place] coronary artery without angina pectoris Bronchitis Home Medications ?Medication ?Instructions ?Recorded ?Last Taken ?Type albuterol sulfate 90 mcg/actuation 2 puff inhalation Q 4H PRN 10/02/16 Unknown History aerosol inhaler SHORTNESS OF BREATH/WHEEZING aspirin 81 mg tablet,delayed 81 mg PO DAILY HEART HEAL TH 10/02/16 03/18/23 His tory release imipramine HCl 25 mg tablet 25 - 50 mg PO QHS BLADDER CONTROL 10/02/16 03/18/23 History simvastatin 40 mg tablet 40 mg PO QHS CHOLESTEROL 03/18/23 History Nebulizer machine #1 ea 09/15/23 Unknown Rx bupropion HCl 300 mg 24 hr tablet, 300 mg PO DAILY [facility] 10/12/23 Unknown History extended release carvedilol 25 mg tablet 25 mg PO Q12H HEART 10/12/23 Unknown History amlodipine 10 mg tablet 10 mg PO DAILY blood pressur e #30 10/14/23 Unknown Rx tabs cholecalciferol (vitamin D3) 25 25 mcg PO DAILY vitami n 03/08/24 Unknown History mcg (1,000 unit) capsule fluticasone fur. 200 mcg-umeclid 1 inh inhalation LOVE Y breathing 03/08/24 Unknown Rx 62.5 mcg-vilant 25 mcg #60 ea inhalat.powder (Trelegy Ellipta) ipratropium 20 mcg-albuterol 100 1 puff inhalation BID 03/08/24 Unknown History mcg/actuation mist for inhalation (Combivent Respimat) metformin 1,000 mg tablet 1,000 mg PO BID 03/08/24 Unk nown History apixaban 5 mg tablet (Eliquis) 5 mg PO BID 30 days #60 tabs 03/29/24 Unknown Rx doxycycline monohydrate 100 mg 100 mg PO BID 3 days #6 caps 03/29/24 Unknown Rx capsule furosemide 40 mg tablet 40 mg PO DAILY #7 tabs 03/29 Unknown Rx pantoprazole 40 mg tablet,delayed 40 mg PO BID 30 days #60 tabs 03/29/24 Unknown Rx release prednisone 10 mg tablet 40 mg (4 x 10 mg) PO BREAKFA ST #18 03/29/24 Unknown Rx tabs lisinopril 40 mg tablet 40 mg PO BID #180 TABLETS Unknown Rx Allergy/AdvReac Type Severity Reaction Status Date / Time Iodinated Contrast Media Allergy Other Verified 08/28/24 20:02 (CONTRASTS) meperidine (From Demerol) Allergy Unknown Verified 08/28/24 20:02 Penicillins (PCN) Allergy Rash Verified 08/28/24 20:02 Family History Mother Hypertension Diabetes Father Cancer Surgical History History of colonoscopy with polypectomy History of total hip arthroplasty History of cholecystectomy History of cataract surgery History of appendectomy History of left heart catheterization (09/03/11) Social History household members: none Smoking Status: Former smoker quit date: 04/04/23 alcohol intake: current substance use type: does not use EXAM Physical Exam Const Vital Signs: 08/28/24 20:04 08/28/24 20:08 08/28/24 20:08 Temperature 98.2 F 98.2 F Temperature Source Oral Oral Pulse Rate 83 83 Respiratory Rate 21 H 21 H Respiratory Effort Short of Breath Respiratory Depth Deep Respiratory Pattern Tachypnea Blood Pressure 136/84 H 136/84 H Blood Pressure Mean 101 101 Pulse Ox 91 91 Oxygen Delivery Method Nasal Cannula Nasal Cannula Nasal Cannula Oxygen Flow Rate (L/min) 4.5 4.5 4.5 08/28/24 20:51 08/28/24 20:51 08/28/24 20:53 Temperature Temperature Source Pulse Rate 85 Respiratory Rate 20 H Respiratory Effort Respiratory Depth Respiratory Pattern Normal Blood Pressure Blood Pressure Mean Pulse Ox 80 96 Oxygen Delivery Method Nasal Cannula Non-Rebreather Oxygen Flow Rate (L/min) 5 15 08/28/24 21:08 08/28/24 22:00 Temperature 98.2 F 98.2 F Temperature Source Oral Oral Pulse Rate 84 88 Respiratory Rate 22 H 20 H Respiratory Effort Respiratory Depth Respiratory Pattern Blood Pressure 129/61 H 135/63 H Blood Pressure Mean 83 87 Pulse Ox 92 88 Oxygen Delivery Method Nasal Cannula Nasal Cannula Oxygen Flow Rate (L/min) 4 4 MDM MDM MDM Narrative Medical decision making narrative: HISTORY OF PRESENT ILLNESS: 73-year-old female history of chronic hypoxic respiratory failure on home oxygen, atrial fibrillation on Eliquis, morbid obesity, CKD, nonischemic cardiomyopathy, hypertension, hyperlipidemia presents with chief complaint of shortness of breath. Per EMS report patient called for multiple falls and nausea and vomiting. She notes had mechanical fall today. No she was getting out of the recliner and her walker slipped forward. She fell backwards hitting her head and low back. She also notes increasing shortness of breath. Notes a cough that is nonproductive. States she is not smoking. She states today she became very short of breath despite having her oxygen on and she was saturating in the low 80s. She denies chest pain. Denies leg swelling. The patient denies recent surgery in the last 4 weeks or immobilization in the last 3 days, denies previous diagnosis of DVT or PE, hemoptysis, unilateral leg swelling or malignancy with treatment the last 6 months or palliative. No estrogen use noted. Denies bleeding diathesis. She notes that she gets reflux in times and developed nausea and vomiting. She endorses 1 episode of nonbloody nonbilious vomitus prior to arrival. Denies any nausea or abdominal pain at this time REVIEW OF SYSTEMS: Pertinent positives: Shortness of breath, nausea vomiting Pertinent negatives: Focal weakness, abdominal pain, chest pain PHYSICAL EXAM: Nursing triage notes reviewed, Vital signs reviewed Constitutional: please see mdm HENT: MMM, atraumatic, normocephalic, no nasal septal hematoma, no intraoral lesions nasal cannula in place Eyes: Pupils equal round and reactive to light, Extraocular muscles intact Neck: No stridor, no JVD, full neck ROM Lungs: Coarse breath sounds, slight expiratory wheezing in the right lower lung saravia, No increased work of breathing, no conversational dyspnea, no accessory muscle use, no nasal flaring. No respiratory distress noted Heart: Regular rate and rhythm, No murmurs, No rubs and No gallops, 2+ distal pulses (radial, femoral, posterior tibial) in all extremities Abdomen: Soft, there is no tenderness, rigidity, rebound or guarding, no obvious peritoneal signs, no palpable pulsatile abdominal masses, no auscultated abdominal bruit : No CVAT Extremities: No edema Neuro: No new focal neurological deficits, cranial nerves II through XII intact, 5/5 strength in all present extremities. Intact sensation to light touch in all present extremities, 2+ reflexes bilateral patella tendons. Skin: No rash or lesions noted MEDICAL DECISION MAKING: Chief Complaint: As per HPI External records reviewed: Reviewed prior hospitalization Factors affecting care: As per HPI Social determinants of health: Denies current tobacco use History obtained from others: The patient's Consults: Internal medicine (Dr. Chavarria) MDM Narrative: The patient was initially hemodynamically stable, afebrile and nontoxic- appearing. She is saturating at 88% on her home 4 and half liters. Patient had no signs of respiratory compromise. No indication for BiPAP or intubation initially. Primary secondary trauma surveys concerning for intracranial normality, cervical spine abnormality thoracic lumbar spine abnormality. History concerning for intra-abdominal pathology, heart and lung pathology including pneumonia, CHF, ACS, anemia, electrolyte disturbance, COVID, RSV, flu, pneumonia. I obtained a broad lab and imaging workup to further elucidate etiology patient's complaints IV placed, monitor placed. Patient saturating well on her home 4 and half liters by nasal cannula. No indication for noninvasive ventilation or intubation at this time. ALL IMAGES (IF OBTAINED) HAVE BEEN PERSONALLY REVIEWED AND INTERPRETED BY MYSELF. Chest x-ray was read reviewed by myself shows evidence of a right lower lobe infiltrate EKG with normal sinus rhythm rate 83, left ax deviation, QT interval 455, no STEMI CBC with marked leukocytosis of 30,000 which is slightly uptrending from prior, noted mild anemia but no thrombocytopenia BMP without evidence of significant electrolyte abnormalities, no anion gap, no acute kidney injury. LFTs show no evidence of hepatobiliary pathology. High-sensitivity troponin is negative, no evidence of myocardial ischemia Lipase is wnl indicating no pancreatic inflammation. COVID/RSV/flu negative CT scan of the head shows no evidence of obvious intracranial normality CT scan of the abdomen pelvis shows no evidence of obvious intra-abdominal pathology CT scan thoracic spine shows no evidence of obvious bony pathology of the back CT scan lumbar spine shows no evidence of obvious bony abnormality The synthesis of the patient's history, physical exam, labs images suggest likely pneumonia as a cause of her report of hypoxia, elevated leukocytosis and falls. There is no obvious traumatic injury noted on trauma evaluation. Given report of hypoxia and significant medical comorbidities I gave patient IV levofloxacin and opt to admit the patient for further management. The patient and/or family, caregivers express understanding. The patient and/or family, caregivers agrees with the plan. Shared decision making: I will have a discussion with the patient and or visitors regarding risk/benefits of further testing or admission. They will be made aware of of the risk/benefits inherent in this decision they will be given the opportunity to voice understanding. Total critical care time today provided was at least 0 minutes. This excludes separately billable procedures. Critical care time (if documented) is secondary to the patient having high probability of clinically significant/life threatening deterioration in the patient's condition which required my urgent intervention. Impression: 1. Community-acquired pneumonia 2. Hypoxia 3. History of COPD 4. Frequent falls Dispo: Admit to [facility] This note was generated with [employer] dictation software. It may contain incorrect words, spelling, and punctuation that were not noted in review of the chart prior to signing. Lab Data Labs: Laboratory Results - last 24 hr 08/28/24 20:30 WBC 30.1 H* RBC 3.59 L Hgb 11.5 L Hct 35.1 L MCV 97.8 MCH 32.0 MCHC 32.8 RDW Std Deviation 46.1 H RDW Coeff of [place] 13.0 Plt Count 195 MPV 11.8 Sodium 140 Potassium 3.4 L Chloride 106 Carbon Dioxide 26.0 Anion Gap 8 BUN 22 H Creatinine 1.11 H Estim Creat Clear Calc 55.00 Est GFR (MDRD) Af Amer 62 Est GFR (MDRD) Non-Af 51 L BUN/Creatinine Ratio 19.8 Glucose 152 H Calcium 7.3 L Total Bilirubin 0.90 AST 15 ALT 25 Alkaline Phosphatase 76 Troponin I High Sens 5 Total Protein 7.1 Albumin 2.8 L Globulin 4.3 H Albumin/Globulin Ratio 0.7 L Lipase 27 L Radiography Diagnostic Testing: Clinical Impression(s) from Imaging Studies Brain CT 08/28/24 20:28 IMPRESSION: 1. No acute intracranial abnormality. 2. Atrophy and chronic small-vessel ischemic changes. Reading Location: [facility] Abdomen/Pelvis CT 08/28/24 20:29 IMPRESSION: 1. Right middle and lower lobe consolidations concerning for multifocal pneumonia. Recommend imaging follow-up after medical management to ensure resolution. 2. Small right basilar effusion. 3. Small hiatal hernia. Dilated esophagus with extensive debris throughout. Correlate for aspiration pneumonia. One or more dose reduction techniques were used (e.g., Automated exposure control, adjustment of the mA and/or kV according to patient size, use of iterative reconstruction technique). Reading Location: [facility] Lumbar Spine CT 08/28/24 20:29 IMPRESSION: No acute osseous abnormality. Moderate multilevel degenerative changes. Right hip prosthesis. Severe left hip osteoarthritis. No paraspinal mass. One or more dose reduction techniques were used (e.g., Automated exposure control, adjustment of the mA and/or kV according to patient size, use of iterative reconstruction technique). Reading Location: [facility] Thoracic Spine CT 08/28/24 20:29 IMPRESSION: No acute osseous abnormality. Multilevel partial vertebral body ankylosis. Mild multilevel degenerative changes. Airspace consolidations in the right middle and right lower lobes concerning for pneu monia. Small hiatal hernia. Diffuse distention of the esophagus containing debris. Correlate for aspiration pneumonia. Coronary artery disease. One or more dose reduction techniques were used (e.g., Automated exposure control, adjustment of the mA and/or kV according to patient size, use of iterative reconstruction technique). Reading Location: [facility] Chest X-Ray 08/28/24 22:00 IMPRESSION: Right basilar consolidation with probable small right effusion. Reading Location: [facility] Discharge Plan Triage Chief Complaint: Shortness of Breath ED Provider: Jackson Negrete Dx/Rx/DC Orders Prescriptions: No Action metformin 1,000 mg tablet 1,000 mg PO BID cholecalciferol (vitamin D3) 25 mcg (1,000 unit) capsule 25 mcg PO DAILY Combivent Respimat 20-100 mcg/actuation mist 1 puff inhalation BID Trelegy Ellipta 200-62.5-25 mcg blister with device 1 inh inhalation DAILY Qty: 60 6RF aspirin 81 MG tablet 81 mg PO DAILY simvastatin 40 MG tablet 40 mg PO QHS albuterol sulfate 1 PUFF inhaler 2 puff INHALATION Q4H PRN (Reason: SHORTNESS OF BREATH/WHEEZING ) imipramine HCl 25 MG tablet 25 - 50 mg PO QHS carvedilol 25 mg tablet 25 mg PO Q12H bupropion HCl 300 mg tablet extended release 24 hr 300 mg PO DAILY amlodipine 10 mg Tablet 10 mg PO DAILY Qty: 30 1RF doxycycline monohydrate 100 mg Capsule 100 mg PO BID 3 Days Qty: 6 0RF pantoprazole 40 mg Tablet,Delayed Release (Dr/Ec) 40 mg PO BID 30 Days Qty: 60 0RF Eliquis 5 mg Tablet 5 mg PO BID 30 Days Qty: 60 0RF prednisone 10 mg tablet 40 mg PO BREAKFAST Qty: 18 0RF Rx Instructions: Take 3 tablets daily for 3 days then 2 tablets daily for 3 days then 1 tablet daily for 3 days furosemide 40 mg tablet 40 mg PO DAILY Qty: 7 0RF (DME) Nebulizer machine See Rx Instructions .ROUTE .MEDSUPPLY Qty: 1 0RF Rx Instructions: As directed lisinopril 40 mg tablet 40 mg PO BID Qty: 180 3RF Primary Care Provider: Justin Bolden Referrals: Justin Bolden MD [Primary Care Provider] - Print Language: Georgian
--- NOTE | 2024-08-28 20:28 | CT_ITS ---
EXAM: CT brain without IV contrast CLINICAL HISTORY: Pain, trauma COMPARISON: 10/12/2023 TECHNIQUE: Multiple contiguous axial images through the abdomen and pelvis were obtained without the administration of intravenous contrast. Two-dimensional coronal and sagittal reformatted images were reconstructed. Low-dose imaging technique was utilized. FINDINGS: No evidence of acute intracranial hemorrhage, midline shift or mass effect. No definite CT evidence of acute territorial cortical infarction. No hydrocephalus. Moderate generalized cerebral atrophy and chronic small-vessel ischemic changes. No depressed calvarial fracture. Paranasal sinuses and mastoid air cells are clear. CT/Brain/Head without Contrast IMPRESSION: 1. No acute intracranial abnormality. 2. Atrophy and chronic small-vessel ischemic changes. Reading Location: [facility]
--- NOTE | 2024-08-28 20:28 | EKG12_ITS ---
Test Reason : SOB Blood Pressure : */* mmHG Vent. Rate : 83 BPM Atrial Rate : 83 BPM P-R Int : 194 ms QRS Dur : 74 ms QT Int : 388 ms P-R-T Axes : 53 -29 44 degrees QTcB Int : 455 ms Normal sinus rhythm Low voltage QRS Borderline ECG Confirmed by Robert Etienne ([id number]), news video editor VANDANA ALVARADO ([id number]) on 08/29/2024 10:33:56 AM Referred By: Jackson Negrete Confirmed By: Robert Etienne
--- NOTE | 2024-08-28 20:29 | CT_ITS ---
PROCEDURE: CT abdomen pelvis without IV contrast REASON FOR EXAM: Nausea, vomiting TECHNIQUE: Multiple contiguous axial images through the abdomen and pelvis were obtained without the administration of intravenous contrast. Two-dimensional coronal and sagittal reformatted images were reconstructed. Low-dose imaging technique was utilized. COMPARISON: None. FINDINGS: Small right pleural effusion. Airspace consolidations in the right middle and right lower lobes. Small hiatal hernia. Distended esophagus containing extensive debris. Unenhanced liver, spleen, pancreas and right adrenal gland are intact. Nodular thickening of the left adrenal gland. Gallbladder is not visualized. No significant biliary ductal dilation. Punctate left renal hilar calcification which may relate to a vascular calcification or nonobstructing calculus. Small left renal cyst. No hydronephrosis. Urinary bladder is grossly intact. No bowel obstruction, focal bowel wall thickening or significant perienteric inflammation. Appendix is not visualized. No pelvic free fluid. No free air. Calcified nonaneurysmal abdominal aorta. No suspicious adenopathy. Superficial soft tissues are without acute abnormality. No acute osseous abnormality. Degenerative changes of the spine and left hip. Right hip prosthesis. CT/Abdomen/Pelvis without Cont IMPRESSION: 1. Right middle and lower lobe consolidations concerning for multifocal pneumon ia. Recommend imaging follow-up after medical management to ensure resolution. 2. Small right basilar effusion. 3. Small hiatal hernia. Dilated esophagus with extensive debris throughout. C orrelate for aspiration pneumonia. One or more dose reduction techniques were used (e.g., Automated exposure contr ol, adjustment of the mA and/or kV according to patient size, use of iterative reconstruction technique). Reading Location: [facility]
--- NOTE | 2024-08-28 20:29 | CT_ITS ---
PROCEDURE: CT thoracic spine without IV contrast REASON FOR EXAM: Pain, trauma TECHNIQUE: Multiple contiguous axial images through the thoracic spine were obtained without the administration of intravenous contrast. Two-dimensional coronal and sagittal reformatted images were reconstructed. Low-dose imaging technique was utilized. COMPARISON: None FINDINGS: See impression CT/Spine Thoracic without Contras IMPRESSION: No acute osseous abnormality. Multilevel partial vertebral body ankylosis. Mi ld multilevel degenerative changes. Airspace consolidations in the right middle and right lower lobes concerning for pneumon ia. Small hiatal hernia. Diffuse distention of the esophagus containing debris. Correlate for aspiration pneumonia. Coronary artery disease. One or more dose reduction techniques were used (e.g., Automated exposure contr ol, adjustment of the mA and/or kV according to patient size, use of iterative reconstruction technique). Reading Location: [facility]
--- NOTE | 2024-08-28 20:29 | CT_ITS ---
PROCEDURE: CT lumbar spine without IV contrast REASON FOR EXAM: Pain, trauma. TECHNIQUE: Multiple contiguous axial images through the lumbar spine were obtained without the administration of intravenous contrast. Two-dimensional coronal and sagittal reformatted images were reconstructed. Low-dose imaging technique was utilized. COMPARISON: None. FINDINGS: See impression CT/Spine Lumbar without Contrast IMPRESSION: No acute osseous abnormality. Moderate multilevel degenerative changes. Right hip prosthesis. Severe left hip osteoarthritis. No paraspinal mass. One or more dose reduction techniques were used (e.g., Automated exposure contr ol, adjustment of the mA and/or kV according to patient size, use of iterative reconstruction technique). Reading Location: [facility]
[2024-08-28] MEDS: Ipratropium/Albuterol Sulfate 3 ML AMPUL.NEB INHALATION (20:41)
[2024-08-28] MEDS: Ondansetron 4 MG/2 ML Vial IV (20:41)
[2024-08-28 21:01] LABS: Hematocrit 35.1 % (37-47); Hemoglobin 11.5 g/dL (12.0-15.0); Mean Corp Hgb Conc 32.8 g/dL (32-36); Mean Corpuscular Volume 97.8 fL (81-99); Mean Platelet Vol. 11.8 fl (6.2-12.0); POSITIVE COUNT YES; Platelet Count 195 K/mm3 (150-450); RBC Distribution Width SD 46.1 fl (35.1-43.9); Red Blood Count 3.59 M/mm3 (4.2-5.4)
[2024-08-28 21:08] LABS: White Blood Count 30.1 K/mm3 (4.4-11.0)
[2024-08-28 21:09] LABS: Scan Indicated on CBC? Y/N YES- FLAGS NOTED
[2024-08-28 21:25] LABS: ALB/GLOB Ratio 0.7 RATIO (0.9-2.4); AST(SGOT) 15 U/L (15-37); Alanine Aminotransfer ALT/SGPT 25 U/L (13-56); Albumin, Serum 2.8 g/dL (3.2-5.0); Alkaline Phosphatase 76 U/L (45-117); Anion Gap 8 (5-15); BUN 22 mg/dL (7-18); BUN/Creat Ratio 19.8 RATIO (10-20); Calcium,Total 7.3 mg/dL (8.5-10.1); Chloride 106 mmol/L (98-107); Creatinine, Serum 1.11 mg/dL (0.55-1.02); EST Glomerular Filtration Rate 51 mL/min (>60); Est Glom Filt Rate - Afr Amer 62 mL/min (>60); Globulin 4.3 g/dL (2.2-4.2); Glucose 152 mg/dL (74-106); Lipase 27 U/L (73-393); Potassium 3.4 mmol/L (3.5-5.1); Protein, Total 7.1 g/dL (6.4-8.2); Sodium Level 140 mmol/L (136-145); Troponin-I HS 5 pg/mL (3.0-54.0)
--- NOTE | 2024-08-28 21:38 | CM.ED ---
feeder worker power unit operator confirmed in patient record the presence of scanned in Living Will and HPOA. Harriet Taylor, GREEN TIRE INSPECTOR, BOILER FIREMAN
--- NOTE | 2024-08-28 22:00 | RAD_ITS ---
PROCEDURE: Chest radiograph REASON FOR EXAM: Cough TECHNIQUE: Frontal view of the chest COMPARISON: 03/24/2024 FINDINGS: Mild cardiomegaly. Right basilar airspace consolidations. Left lung is clear. Possible small right pleural effusion. No sizable pneumothorax. RAD/Chest 1 View (Portable) IMPRESSION: Right basilar consolidation with probable small right effusion. Reading Location: [facility]
--- NOTE | 2024-08-28 23:06 | PCM.HP.STD ---
HPI - General General Date of Admission: 08/28/24 Date of Service: 08/28/24 Chief Complaint: Falls, N/V, hypoxia. HPI Narrative The patient is a 73 y/o F w/ PMHx: Diabetes mellitus type II, JONO using oxygen qHS only, CKD possible stage III unclear subtype, Morbid Obesity, HTN, HLD, Chronic COPD w/ Chronic Hypoxic Respiratory Failure (2-3L NC), Former tobacco use, Nonobstructive CAD/Nonischemic cardiomyopathy, Chronic anemia who presents to the [facility] ED on 08/28/2024 with history of fatigue, malaise, dyspnea in addition to nausea and emesis with worsening weakness with resulting multiple falls prompting eventual ED evaluation to be cautious. Workup in the ED included T98.2, heart rate 83, BP 136/84, respiratory rate 21, 91% on 4.5 L nasal cannula, CBC with WBC 30.1, hemoglobin 11.5, MCV 97.8 without differential performed, CMP with potassium 3.4, BUN/creatinine 22/1.11, GFR 51, hepatic profile not marked appearing, troponin 5, chest x-ray right basilar consolidation with probable small right effusion, CT head with no acute intracranial abnormality with atrophy and chronic small vessel ischemic changes, CT thoracic spine with no acute osseous abnormality with multilevel partial vertebral body ankylosis and mild multilevel degenerative changes, CT lumbar spine with no acute osseous abnormality with moderate multilevel degenerative changes, CT abdomen and pelvis right middle and lower lobe consolidation concerning for multifocal pneumonia, small right basilar effusion, small hiatal hernia, dilated esophagus with extensive debris with recommended correlation for aspiration pneumonia. In the ED patient ministered DuoNeb therapy, Levaquin 750 mg IV x 1 and Zofran 4 mg IV x 1. [facility] Medical History Diabetes mellitus, type 2 Chronic hypoxic respiratory failure, on home oxygen therapy Morbid obesity CKD (chronic kidney disease), stage III Sleep apnea Nonischemic cardiomyopathy Essential (primary) hypertension LBBB (left bundle branch block) COPD (chronic obstructive pulmonary disease) Hyperlipidemia Nicotine abuse Atherosclerotic heart disease of [place] coronary artery without angina pectoris Bronchitis Home Medications ?Medication ?Instructions ?Recorded ?Last Taken ?Type albuterol sulfate 90 mcg/actuation 2 puff inhalation Q4H PRN 10/02/16 Unknown History aerosol inhaler SHORTNESS OF BREATH/WHEEZING aspirin 81 mg tablet,delayed 81 mg PO DAILY HEART HEALTH 10/02/16 03/18/23 History release imipramine HCl 25 mg tablet 25 - 50 mg PO QHS BLADDER CONTROL 10/02/16 03/18/23 History simvastatin 40 mg tablet 40 mg PO QHS CHOLESTEROL 10/02/16 03/18/23 History Nebulizer machine #1 ea 09/15/23 Unknown Rx bupropion HCl 300 mg 24 hr tablet, 300 mg PO DAILY mental health 10/12/23 Unknown History extended release carvedilol 25 mg tablet 25 mg PO Q12H HEART 10/12/23 Unknown History amlodipine 10 mg tablet 10 mg PO DAILY blood pressure #30 10/14/23 Unknown Rx tabs cholecalciferol (vitamin D3) 25 25 mcg PO DAILY vitamin 03/08/24 Unknown History mcg (1,000 unit) capsule fluticasone fur. 200 mcg-umeclid 1 inh inhalation DAILY breathing 03/08/24 Unknown Rx 62.5 mcg-vilant 25 mcg #60 ea inhalat.powder (Trelegy Ellipta) ipratropium 20 mcg-albuterol 100 1 puff inhalation BID 03/08/24 Unknown History mcg/actuation mist for inhalation (Combivent Respimat) metformin 1,000 mg tablet 1,000 mg PO BID 03/08/24 Unknown History apixaban 5 mg tablet (Eliquis) 5 mg PO BID 30 days #60 tabs 03/29/24 Unknown Rx doxycycline monohydrate 100 mg 100 mg PO BID 3 days #6 caps 03/29/24 Unknown Rx capsule furosemide 40 mg tablet 40 mg PO DAILY #7 tabs 03/29/24 Unknown Rx pantoprazole 40 mg tablet,delayed 40 mg PO BID 30 days #60 tabs 03/29/24 Unknown Rx release prednisone 10 mg tablet 40 mg (4 x 10 mg) PO BREAKFAST #18 03/29/24 Unknown Rx tabs lisinopril 40 mg tablet 40 mg PO BID #180 TABLETS 08/03/24 Unknown Rx Allergy/AdvReac Type Severity Reaction Status Date / Time Iodinated Contrast Media Allergy Other Verified 08/28/24 20:02 (CONTRASTS) meperidine (From Demerol) Allergy Unknown Verified 08/28/24 20:02 Penicillins (PCN) Allergy Rash Verified 08/28/24 20:02 Family History Mother Hypertension Diabetes Father Cancer Surgical History History of colonoscopy with polypectomy History of total hip arthroplasty History of cholecystectomy History of cataract surgery History of appendectomy History of left heart catheterization (09/03/11) Social History household members: none Smoking Status: Former smoker quit date: 04/04/23 alcohol intake: current substance use type: does not use ROS ROS Narrative Admission Review of Systems: CONSTITUTIONAL: No weight loss, fever, chills, + weakness or fatigue. HEENT: Eyes: No visual loss, blurred vision, double vision or yellow sclerae. Ears, Nose, Throat: No hearing loss, sneezing, congestion, runny nose or sore throat. SKIN: No rash or itching, lesions, wounds. CARDIOVASCULAR: + Chronic edema. No chest pain, chest pressure or chest discomfort, palpitations, orthopnea, syncope. RESPIRATORY: + Acute on Chronic dyspnea, cough without marked sputum. No wheezing or hemoptysis. GASTROINTESTINAL: + Anorexia, nausea, vomiting. No diarrhea, abdominal pain, melena, BRBPR. GENITOURINARY: No dysuria, frequency, urgency or retention. NEUROLOGICAL: + Frequent falls. No headache, lightheadedness, dizziness, syncopal events, paralysis, ataxia, numbness or tingling in the extremities, focal weakness, change in bowel or bladder control, seizure. MUSCULOSKELETAL: + muscle, back pain, joint pain or stiffness. HEMATOLOGIC: + Chronic anemia. No bleeding or bruising. LYMPHATICS: No enlarged nodes. No history of splenectomy. PSYCHIATRIC: No history of depression or anxiety. ENDOCRINOLOGIC: No reports of sweating, cold or heat intolerance. No polyuria or polydipsia. ALLERGIES: No history of asthma, hives, eczema or rhinitis. Vital Signs Vital Signs Vital Signs: 08/28/24 20:04 08/28/24 20:08 08/28/24 20:08 Temperature 98.2 F 98.2 F Temperature Source Oral Oral Pulse Rate 83 83 Respiratory Rate 21 H 21 H Respiratory Effort Short of Breath Respiratory Depth Deep Respiratory Pattern Tachypnea Blood Pressure 136/84 H 136/84 H Blood Pressure Mean 101 101 Pulse Ox 91 91 Oxygen Delivery Method Nasal Cannula Nasal Cannula Nasal Cannula Oxygen Flow Rate (L/min) 4.5 4.5 4.5 08/28/24 20:51 08/28/24 20:51 08/28/24 20:53 Temperature Temperature Source Pulse Rate 85 Respiratory Rate 20 H Respiratory Effort Respiratory Depth Respiratory Pattern Normal Blood Pressure Blood Pressure Mean Pulse Ox 80 96 Oxygen Delivery Method Nasal Cannula Non-Rebreather Oxygen Flow Rate (L/min) 5 15 08/28/24 21:08 08/28/24 22:00 08/28/24 23:00 Temperature 98.2 F 98.2 F 98.2 F Temperature Source Oral Oral Oral Pulse Rate 84 88 83 Respiratory Rate 22 H 20 H 24 H Respiratory Effort Respiratory Depth Respiratory Pattern Blood Pressure 129/61 H 135/63 H 131/55 H Blood Pressure Mean 83 87 80 Pulse Ox 92 88 94 Oxygen Delivery Method Nasal Cannula Nasal Cannula Nasal Cannula Oxygen Flow Rate (L/min) 4 4 4 Weight Weight: 244 lb 7.882 oz Body Mass Index (BMI) 41.9 Physical Exam Narrative Physical Examination: General: Awake, alert, oriented x 3 and cooperative, seated upright in the ED bed, fatigued, no evidence of any respiratory distress. Skin: Normal color, normal turgor, no icterus, no cyanosis except bilateral lower extremity venous stasis skin changes, occasional abrasion, staged ecchymoses HEENT: AT/NC, EOMI, PERRLA, MMM, difficult to discern carotid bruits/JVD given thickened neck. Lungs: Diminished, right greater than left, mildly increased respiratory rate but no distress, mildly rhonchorous right base, no rales or wheezing Heart: Regular rate and rhythm; no gallop, rub audible. Abdomen: Soft, morbidly obese, NTTP, distant BS, difficult to discern distention and HSM given habitus. Extremities: No cyanosis, no clubbing, pedal to proximal kline 2+ pitting edema. Neurological: Patient awake, alert, oriented as noted, cognitive function intact; pupils equally reactive to light and accommodation, cranial nerves grossly normal, moving all 4 extremities, no focal deficits, strength severely global decrease secondary to acute presentation Psychiatric: Affect appears fatigued, no acute evidence of depressive or anxiety feelings. Results Lab / Micro Data 08/28/24 20:30 08/28/24 20:30 Labs: Laboratory Results - last 24 hr 08/28/24 20:30: WBC 30.1 H*, RBC 3.59 L, Hgb 11.5 L, Hct 35.1 L, MCV 97.8, MCH 32.0, MCHC 32.8, RDW Std Deviation 46.1 H, RDW Coeff of [place] 13.0, Plt Count 195, MPV 11.8, Sodium 140, Potassium 3.4 L, Chloride 106, Carbon Dioxide 26.0, Anion Gap 8, BUN 22 H, Creatinine 1.11 H, Estim Creat Clear Calc 55.00, Est GFR (MDRD) Af Amer 62, Est GFR (MDRD) Non-Af 51 L, BUN/Creatinine Ratio 19.8, Glucose 152 H, Calcium 7.3 L, Total Bilirubin 0.90, AST 15, ALT 25, Alkaline Phosphatase 76, Troponin I High Sens 5, Total Protein 7.1, Albumin 2.8 L, Globulin 4.3 H, Albumin/Globulin Ratio 0.7 L, Lipase 27 L Micro: Microbiology 08/28/24 20:30 Mucosa - Nose SARS-CoV-2, Influenza & RSV (PCR) - Final Imaging Radiology Impression Brain CT 08/28/24 20:28 IMPRESSION: 1. No acute intracranial abnormality. 2. Atrophy and chronic small-vessel ischemic changes. Reading Location: [facility] Abdomen/Pelvis CT 08/28/24 20:29 IMPRESSION: 1. Right middle and lower lobe consolidations concerning for multifocal pneumonia. Recommend imaging follow-up after medical management to ensure resolution. 2. Small right basilar effusion. 3. Small hiatal hernia. Dilated esophagus with extensive debris throughout. Correlate for aspiration pneumonia. One or more dose reduction techniques were used (e.g., Automated exposure control, adjustment of the mA and/or kV according to patient size, use of iterative reconstruction technique). [email or web address] 08/28/24 20:29 IMPRESSION: No acute osseous abnormality. Moderate multilevel degenerative changes. Right hip prosthesis. Severe left hip osteoarthritis. No paraspinal mass. One or more dose reduction techniques were used (e.g., Automated exposure control, adjustment of the mA and/or kV according to patient size, use of iterative reconstruction technique). [email or web address] Thoracic Spine CT 08/28/24 20:29 IMPRESSION: No acute osseous abnormality. Multilevel partial vertebral body ankylosis. Mild multilevel degenerative changes. Airspace consolidations in the right middle and right lower lobes concerning for pneumonia. Small hiatal hernia. Diffuse distention of the esophagus containing debris. Correlate for aspiration pneumonia. Coronary artery disease. One or more dose reduction techniques were used (e.g., Automated exposure control, adjustment of the mA and/or kV according to patient size, use of iterative reconstruction technique). Reading Location: [facility] Chest X-Ray 08/28/24 22:00 IMPRESSION: Right basilar consolidation with probable small right effusion. Reading [email or web address] Assessment & Plan Assessment/Plan (1) Acute and chronic respiratory failure with hypoxia: (2) Pneumonia: PLAN: Plan The patient is a 73 y/o F w/ PMHx: Diabetes mellitus type II, JONO using oxygen qHS only, CKD possible stage III unclear subtype, Morbid Obesity, HTN, HLD, Chronic COPD w/ Chronic Hypoxic Respiratory Failure (2-3L NC), Former tobacco use, Nonobstructive CAD/Nonischemic cardiomyopathy, Chronic anemia who presents to the [facility] ED on 08/28/2024 with history of fatigue, malaise, dyspnea in addition to nausea and emesis with worsening weakness with resulting multiple falls prompting eventual ED evaluation to be cautious. #1. Acute on Chronic Hypoxic secondary to Acute RML/RLL Pneumonia, concern for possible aspiration component with gram-negative/gram-positive organisms: Will admit to MS,maintain on oxygen with wean as tolerated to home oxygen which is normally 2 to 3 L nasal cannula supplementation, continue ATC budesonide with avoidance of albuterol and less absolutely necessary given #2, maintain on IV Rocephin and IV Flagyl given aspiration concerns and allergies noted, MRSA screen requested, encourage HOB, IS parameters w/ pending sputum cultures, full respiratory viral panel and urine antigens. Bld cx x 2 obtained in the ED. PT/OT//ST/case management consulted for discharge planning. #2. Hypokalemia: Admission K+ 3.4, magnesium level requested, supplementation given, repeat level in AM. #3. Diabetes mellitus type II: Hold oral home regimen, requesting ST involvement, allow sips of water with medication until ST evaluation, every 6 hours accu checks w/ ISS in the interim. #4. Chronic Kidney Disease Stage III unclear subtype per GFR trending: Admission BUN/Cr 22/1.11, GFR 51, baseline renal function has vacillated but appears 0.7-1.1, will repeat BMP in AM. #5. PAF: We will continue patient home Eliquis and Coreg home regimen. #6. Chronic anemia, currently appearing macrocytic with MCV 97.8: Admission hemoglobin 11.5, MCV 97.8, baseline hemoglobin recently 10-11 range primarily, will continue to trend.\ #7. Nonobstructive CAD/nonischemic cardiomyopathy: Patient with single-vessel diagonal branch disease, nonobstructive, will continue aspirin, statin, Coreg, lisinopril home regimen. #8. Hypertension: Continue home regimen including lisinopril, Coreg, amlodipine, PRN hydralazine. #9. Hyperlipidemia: We will continue patient on statin therapy. . #10. Anxiety and depression: We will continue patient home bupropion home regimen. #11. JONO: Patient does not use CPAP or BiPAP but only supplemental oxygen at night. #12. Morbid Obesity: Weight loss and lifestyle changes encouraged. #13. Former Tobacco Abuse: Encouraged continued tobacco cessation. #14. GERD: We will continue patient on PPI. #15. Chronic bilateral lower extremity edema/lymphedema: Strongly encourage patient to consider snug arun wraps but she refused. Given acute infectious presentation would prefer to hydrate judiciously initially. Elevate lower extremities as able. #16. DVT prophylaxis: Continue home Eliquis. #17. CODE status: Patient MIGUEL is her and she notes living will is in place. Discussed CODE status at length including difference between FULL code, DNR-CCA and DNR-CC status. Following discussions about the differences in these status, requested Full Code status. Advanced Care Planning Face to Face Time: 16 minutes. Charges/Coding Visit Charges Inpatient E&M: 63033 Init Hosp L3 Procedures Hospitalists Procedures: 89654 Advncd Care Plan 30 Min
[2024-08-28] MEDS: levoFLOXacin IV 750 MG/150 ML BAG 100 MG IV (23:13)
[2024-08-28 23:41] LABS: Magnesium 0.7 mg/dL (1.6-2.6)
[2024-08-28] MEDS: Potassium Chloride Oral Tablet 20 MEQ 40 MEQ PO (23:48)
[2024-08-29] VITALS (10 sets, daily range): BP systolic 115–153; BP diastolic 52–100; PULSE 80–89; RESP 16–22; TEMP 36.4–36.8; O2SAT 91–96; BMI 39.9
[2024-08-29] MEDS: Magnesium Sulfate 2 GM in Dextrose 5%-Water (100mL Bag) 100 ML IV (01:56)
[2024-08-29] MEDS: 0.9% Normal Saline (1000mL) 1,000 ML 100 ML IV (02:28)
[2024-08-29] MEDS: metroNIDAZOLE 500 MG/100 ML BAG 100 MG IV ×4 (02:28→21:45)
[2024-08-29] MEDS: Potassium Chloride Oral Tablet 20 MEQ 40 MEQ PO (02:28)
[2024-08-29 07:10] LABS: Bedside Glucose 118 mg/dL (74-106)
[2024-08-29] MEDS: Budesonide Respules 0.5 MG/2 ML AMPUL.NEB. INHALATION ×2 (07:11→20:10)
[2024-08-29 08:39] LABS: Absolute Lymphocyte Count 1.86 X10^3/uL (0.83-4.51); Absolute Neutrophil Count 20.8 X10^3/uL (2.0-7.7); Basophil# 0.05 X10^3/uL; Basophil% 0.2 % (0-1); Eosinophil# 0.05 X10^3/uL; Eosinophils% 0.2 % (0-5); Hematocrit 32.1 % (37-47); Hemoglobin 10.4 g/dL (12.0-15.0); Lymphocyte # 1.86 X10^3/ul (0.83-4.51); Lymphocyte % 7.6 % (19-41); Mean Corp Hgb Conc 32.4 g/dL (32-36); Mean Corpuscular Hgb 32.1 pg (27.0-32.0); Mean Corpuscular Volume 99.1 fL (81-99); Mean Platelet Vol. 12.1 fl (6.2-12.0); Monocyte# 1.73 X10^3/uL; NRBC Flagged by Analyzer 0 % (0-5); Neutrophil # 20.76 X10^3/uL (2.7-7.7); Neutrophil % 84.3 % (47-70); POSITIVE DIFFERENTIAL YES; Platelet Count 178 K/mm3 (150-450); RBC Distribution Width CV 13.1 % (11.6-14.6); RBC Distribution Width SD 47.3 fl (35.1-43.9); Red Blood Count 3.24 M/mm3 (4.2-5.4); White Blood Count 24.6 K/mm3 (4.4-11.0)
[2024-08-29 08:40] LABS: Differential Indicated SCAN CRITERIA MET
[2024-08-29] MEDS: Nystatin Powder 15gm Bottle 1 APPLIC TOPICAL ×2 (08:41→23:37)
[2024-08-29] MEDS: APIXABAN 5 MG TABLET PO ×2 (08:43→23:36)
[2024-08-29] MEDS: Pantoprazole Sodium 40 MG Tablet PO ×2 (08:43→23:37)
[2024-08-29] MEDS: buPROPion (XL) 300 MG TABLET.XL PO (08:44)
[2024-08-29] MEDS: Lisinopril 40 MG Tablet PO ×2 (08:44→23:37)
[2024-08-29] MEDS: amLODIPine 10 MG Tablet PO (08:44)
[2024-08-29] MEDS: Carvedilol 25 MG Tablet PO ×2 (08:45→17:51)
[2024-08-29 08:59] LABS: ALB/GLOB Ratio 0.6 RATIO (0.9-2.4); AST(SGOT) 15 U/L (15-37); Alanine Aminotransfer ALT/SGPT 22 U/L (13-56); Albumin, Serum 2.6 g/dL (3.2-5.0); Alkaline Phosphatase 72 U/L (45-117); Anion Gap 8 (5-15); BUN 22 mg/dL (7-18); BUN/Creat Ratio 21.8 RATIO (10-20); Calcium,Total 7.2 mg/dL (8.5-10.1); Chloride 106 mmol/L (98-107); Creatinine, Serum 1.01 mg/dL (0.55-1.02); EST Glomerular Filtration Rate 57 mL/min (>60); Est Glom Filt Rate - Afr Amer 69 mL/min (>60); Estimated Creatinine Clearance 58.97 ml/min; Globulin 4.3 g/dL (2.2-4.2); Glucose 105 mg/dL (74-106); Potassium 4.2 mmol/L (3.5-5.1); Protein, Total 6.9 g/dL (6.4-8.2); Sodium Level 140 mmol/L (136-145)
--- NOTE | 2024-08-29 09:07 | NURSING ---
bilateral breast washed underneath with soap and water, rinsed well and towel dried-speech here to see pt
[2024-08-29] MEDS: Ceftriaxone 2 GM in 0.9% Normal Saline (50mL MB+) 50 ML IV (09:53)
--- NOTE | 2024-08-29 10:00 | NURSING ---
off unit to radiology for testing
--- NOTE | 2024-08-29 11:01 | ST.MBS ---
Modified Barium Swallow Patient Information Study Date: 08/29/24 Study Time: 10:00 Direct Billable Minutes: 120 Total Minutes procedure & reportin Diagnosis: J18.9 - Pneumonia, J96.21 - Respiratory failure w/ hypoxia Referring Physician: Blaise العلي Medical History: The patient is a 73-year-old female with a history of type 2 diabetes mellitus, chronic kidney disease (stage III), morbid obesity, obstructive sleep apnea (on nightly oxygen), chronic hypoxic respiratory failure (requiring 2-3L nasal cannula), COPD, hypertension, hyperlipidemia, nonischemic cardiomyopathy, and chronic anemia. She presented to the [facility] Emergency Department on 08/28/2024 with worsening fatigue, malaise, dyspnea, nausea, vomiting, and progressive weakness, leading to multiple falls. Imaging revealed right basilar consolidation with a probable small pleural effusion on chest X-ray, and CT findings concerning for multifocal pneumonia with suspected aspiration. Prior EGD (March 2024) showed LA Grade C reflux esophagitis, abnormal esophageal motility suggestive of achalasia, gastritis, and hematin in the stomach. Given concerns for aspiration pneumonia, Speech Therapy was consulted, and a bedside swallow evaluation was deferred in favor of an immediate modified barium swallow study. Current Diet Ordered: NPO Mental Status: WNL Respiratory Status: Oxygenating on 4L/M nasal cannula Penetration-Aspiration Scale Penetration-Aspiration Scale: OBJECTIVE ASSESSMENT OF SWALLOW FUNCTION (QUANTITATIVE ? PER TRIAL): PENETRATION / ASPIRATION SCALE (PAREDES): 1 = does not enter airway 2 = enters airway/above vocal folds/ejected 3 = enters airway/above vocal folds/not ejected 4 = enters airway/contacts vocal folds/ejected 5 = enters airway/contacts vocal folds/not ejected 6 = enters airway/below vocal folds/ejected 7 = enters airway/below vocal folds/not ejected despite effort 8 = enters airway/below vocal folds/no effort VIDEOFLOROSCOPIC SCALE SCORE (PAREDES): Grade I = aspiration of material that has penetrated into the laryngeal vestibule, intact cough reflex Grade II = aspiration < 10 % of the bolus, intact cough reflex Grade III = aspiration of < 10 % of the bolus, reduced cough reflex or aspiration of > 10 % of the bolus, intact cough reflex Grade IV = aspiration of > 10 % of the bolus, reduced cough reflex Penetration-Aspiration Scale Score Thin Liquid via teaspoon: Result: 1= does not enter airway Thin Liquid via small single sip: cup: Result: 1= does not enter airway Thin Liquid via small single sip: cup Trial 2: Result: 1= does not enter airway [place] Thick Liquid via small single sip: cup: Result: 1= does not enter airway Honey Thick Liquid via small single sip: cup: Result: 1= does not enter airway Pudding: Result: 1= does not enter airway Cookie: Result: 1= does not enter airway Barium Tablet: Result: 1= does not enter airway Thin Liquid via sequential sips: cup: Result: 2= enter airway/above vocal folds/ejected Oral Phase Labial Seal: No Labial Escape Tongue Control During Bolus Hold: Escape to lateral buccal cavity/floor of mouth Bolus Preparation/Mastication: Timely and efficient chewing and mashing Bolus Transport/Lingual Motion: Brisk tongue motion Oral Residue: Trace residue lining oral structures Pharyngeal Phase Initiation of Pharyngeal Swallow: Bolus head in pyriforms Soft Palate Elevation: No bolus between soft palate and pharyngeal wall Laryngeal Elevation: Partial superior movement thyroid cart/partial apprx aryt-epig petiole Anterior Hyoid Excursion: Partial anterior movement Epiglottic Movement: Complete inversion Laryngeal Vestibule Closure at Height of Swallow: Incomplete; narrow column of air/contrast in laryngeal vestibule Pharyngeal Stripping Wave: Present - diminished Pharyngoesophageal Segment Opening: Parital distension and partial duration; parital obstruction of flow Tongue Base Retraction: Narrow column of contrast between tongue base & post. pharyngeal wall Pharyngeal Residue: Collection of residue within or on pharyngeal structures Esophageal Phase Esophageal Clearance: Esophageal retention w/ retrograde flow below pharyngoesophageal seg. Diagnosis/Impression Diagnosis: PHARYNGOESOPHAGEAL DYSPHAGIA R13.14 Impression: No aspiration was observed during the study. The oral phase was adequate, though occasional oral residue spilled into the vallecula, which the patient independently cleared with multiple swallows. The primary deficits were pharyngoesophageal, with poor UES opening leading to incomplete clearance of liquids and pharyngeal residue in the pyriform sinuses. Significant retention was noted in the mid-esophagus post-swallow. When trialing pudding, retention progressively worsened, with complete retention and absent motility after only 3 bites. The patient trialed a barium tablet with a water systems engineer, which initially became stuck in the vallecula before momentarily lodging in the UES prior to complete clearance. The patient is at high risk for reflux aspiration. A liquid wash was somewhat effective in clearing esophageal retention, but retrograde flow near the UES was consistently observed across all PO trials. Given poor tolerance of whole medications with water and impaired UES function, ARTILLERY SPECIALIST recommends medications be crushed in puree. GI intervention is necessary. The patient was educated on GERD precautions, including stopping PO intake if esophageal retention symptoms increase, eating smaller/more frequent meals, and remaining upright for at least 30 minutes after meals. The hospitalist and GI team have been informed of MBSS findings and dietary recommendations. Recommendations Diet: Thin Liquids Comment: Medications crushed in puree Compensatory Strategies: Small Bites (Consider smaller, more frequent meals due to esophageal retention and reflux observed in the study.), Small Sips, Multiple Swallows, Alternate bites/solids and sips/liquids, Sitting upright and Remain sitting upright for 30 minutes after PO intake Recommend Repeat Modified Barium Swallow: No Need for Skilled Speech Therapy Services: No Recommended Referrals: GI Consult Education Completed: 1. Described result of evaluation. and 2. Pt understands evaluation & agrees with goals and treatment plan. Status Active ST Patient: Active Contact Information [facility] Speech Therapy:: Jennie Hood M.A. [facility]ARTILL[facility] SPECIALIST Speech-Language Pathologist [facility] [address] [place] [address] [email or web address] [phone]
[2024-08-29 11:26] LABS: Bedside Glucose 161 mg/dL (74-106)
--- NOTE | 2024-08-29 12:03 | CASEMGMT ---
Addendum entered by Ronit Bernal 08/29/24 12:46: MEDINA LANDIN into pt room, pt sitting up in bed. Provided pt with a list of HHC providers including quality and resource use data and consistent with the patient?s preferred geographic region, medical needs, and insurance network were provided from the [employer] Guide. Discussed with pt that she only wants SN but her therapy evals this date recommended further therapy. Pt states that it was not good as this was the first time she was out of bed. Discussed seeing how pt does tomorrow and ongoing and therapy may be added to HH referral. Pt agreeable to this. Also will follow ST recommendations. RN CM to check back on pt preferences. Original Note: RN MUSHTAQ Assessment: Face to Face with pt for initial transition planning/care coordination assessment. MEDINA LANDIN introduced self and role at [facility], pt voices understanding and consents to assessment. Pt is A&O x4 and answers all questions appropriately at this time. Pt sitting up in bed with oxygen on in no distress. Care providers, pharmacy, and demographics verified/updated. Admitting Dx: acute on chronic hypoxia, pna Strata Score: 3 PCP:Kimi Specialists:Santhosh, cardio; Anthony pod; susan Razo Preferred Pharmacy: [facility] Insurance: [facility], [employer] Sr Supp Prescription Benefit: yes LNOK: Robbie Pérezetler, Living Arrangements: Pt lives with and an adult son in a single story home with 3 steps to enter with bilat rails. Pt reports she is I in ADLs. She states her friend comes and cooks food for her or her cooks. She states her does the laundry and he picks up the groceries and they are ordered online. Pt denies concerns at home. Transportation: Pt drives self and denies concerns with transportation. DME:rollator, portable oxygen concentrator, oxygen through [employer], pox, BGM with sufficient testing supplies, FWW, transport w/c HHC/SNF: Pt has had HHC in the past but cannot recall the name of the agency, denies SNF stays. Pt states no concerns with going home at time of dc. Pt states that she would be interested in HHC for SN but not therapy. RN MUSHTAQ to bring a list. Pt states no further concerns/needs. CM to follow. Advised pt to ask CM if any further questions/concerns/needs arise, voices understanding. Pt Goal: Home with HHC SN Plan: Home with C SN Kareem HANEY CM
--- NOTE | 2024-08-29 14:55 | CASEMGMT ---
Addendum entered by Ronit Bernal 08/29/24 16:21: Received tc back from [facility], they are able to accept pt for SOC on pending hospital dc. Original Note: RN [facility]HT[facility] received pt preference of [facility]. Pt states she does not want anyone else to come to her home from out of town. She is aware this referral will be made. TC to [facility] at [facility], referral made at this time.
[2024-08-29 15:34] LABS: Pathologist Review Reviewed
--- NOTE | 2024-08-29 17:00 | EX.PCM.CON.G ---
HPI Consult Data Date of Consult: 08/29/24 HPI Narrative Reason for Consultation: Aspiration PNA and dysphagia HPI Narrative: LUCIANA AYALA, is a 73 F who presented to the ED with worsening shortness of breath and hypoxia. I saw her previous admission when she came in for similar presentation. She has a past medical history of chronic COPD w/ Chronic Hypoxic Respiratory Failure (2-3L NC). Workup in the ED included T98.2, heart rate 83, BP 136/84, respiratory rate 21, 91% on 4.5 L nasal cannula, CBC with WBC 30.1, hemoglobin 11.5, MCV 97.8 without differential performe CMP with potassium 3.4, BUN/creatinine 22/1.11, chest x-ray right basilar consolidation with probable small right effusion CT head with no acute intracranial abnormality with atrophy and chronic small vessel ischemic changes CT thoracic spine with no acute osseous abnormality with multilevel partial vertebral body ankylosis and mild multilevel degenerative changes CT lumbar spine with no acute osseous abnormality with moderate multilevel degenerative changes CT abdomen and pelvis right middle and lower lobe consolidation concerning for multifocal pneumonia, small right basilar effusion, small hiatal hernia, dilated esophagus with extensive debris with recommended correlation for aspiration pneumonia. I performed an upper endoscopy with her several months ago was displayed : LA Grade C (one or more mucosal breaks continuous between tops of 2 or more mucosal folds, less than 75% circumference) esophagitis with no bleeding was found 34 to 42 cm from the incisors. Biopsies were taken with a cold forceps for histology. Verification of patient identification for the specimen was done. Estimated blood loss was minimal. Abnormal motility was noted in the esophagus. The cricopharyngeus was abnormal. There are extra peristaltic waves in the esophageal body. The distal esophagus/lower esophageal sphincter is spastic, but gives up passage to the endoscope. Primary peristaltic waves are noted. guidewire was placed and the scope was withdrawn. Dilation was performed with a Savary dilator with no resistance at 54 Fr. The dilation site was examined and showed moderate mucosal disruption. Hematin (altered blood/ljrgvz-tdhfgg-gjut material) was found in the cardia, in the gastric fundus and in the gastric body. Localized mild inflammation characterized by erosions and erythema was found at the pylorus. No gross lesions were noted in the first portion of the duodenum. Impression: - LA Grade C reflux esophagitis with no bleeding. Biopsied. - Abnormal esophageal motility, suspicious for achalasia. Dilated. - Hematin (altered blood/opflqt-upvthd-imvu material) in the gastric fundus, in the gastric body and in the cardia. - Gastritis. - No gross lesions in the first portion of the duodenum. [facility] Medical History Diabetes mellitus, type 2 Chronic hypoxic respiratory failure, on home oxygen therapy Morbid obesity CKD (chronic kidney disease), stage III Sleep apnea Nonischemic cardiomyopathy Essential (primary) hypertension LBBB (left bundle branch block) COPD (chronic obstructive pulmonary disease) Hyperlipidemia Nicotine abuse Atherosclerotic heart disease of hoopa coronary artery without angina pectoris Bronchitis Home Medications ?Medication ?Instructions ?Recorded ?Last Taken ?Type albuterol sulfate 90 mcg/actuation 2 puff inhalation Q4H PRN 10/02/16 Unknown History aerosol inhaler SHORTNESS OF BREATH/WHEEZING aspirin 81 mg tablet,delayed 81 mg PO DAILY HEART HEALTH 10/02/16 08/28/24 10:00 History release imipramine HCl 25 mg tablet 25 - 50 mg PO QHS BLADDER CONTROL 10/02/16 08/27/24 22:00 History simvastatin 40 mg tablet 40 mg PO QHS CHOLESTEROL 10/02/16 08/27/24 22:00 History Nebulizer machine #1 ea 09/15/23 Unknown Rx bupropion HCl 300 mg 24 hr tablet, 300 mg PO DAILY mental health 10/12/23 08/28/24 10:00 History extended release carvedilol 25 mg tablet 25 mg PO Q12H HEART 10/12/23 08/28/24 10:00 History amlodipine 10 mg tablet 10 mg PO DAILY blood pressure #30 10/14/23 08/28/24 10:00 Rx tabs cholecalciferol (vitamin D3) 25 25 mcg PO DAILY vitamin 03/08/24 Unknown History mcg (1,000 unit) capsule fluticasone fur. 200 mcg-umeclid 1 inh inhalation DAILY breathing 03/08/24 Unknown Rx 62.5 mcg-vilant 25 mcg #60 ea inhalat.powder (Trelegy Ellipta) ipratropium 20 mcg-albuterol 100 1 puff inhalation BID 03/08/24 Unknown History mcg/actuation mist for inhalation (Combivent Respimat) metformin 1,000 mg tablet 1,000 mg PO BID diabetes 03/08/24 08/28/24 10:00 History apixaban 5 mg tablet (Eliquis) 5 mg PO BID afib 30 days #60 tabs 03/29/24 08/28/24 10:00 Rx doxycycline monohydrate 100 mg 100 mg PO BID 3 days #6 caps 03/29/24 Unknown Rx capsule furosemide 40 mg tablet 40 mg PO DAILY diuretic #7 tabs 03/29/24 Unknown Rx pantoprazole 40 mg tablet,delayed 40 mg PO BID gerd 30 days #60 tabs 03/29/24 08/28/24 10:00 Rx release prednisone 10 mg tablet 40 mg (4 x 10 mg) PO BREAKFAST #18 03/29/24 Unknown Rx tabs lisinopril 40 mg tablet 40 mg PO BID blood pressure #180 08/03/24 08/28/24 10:00 Rx TABLETS Allergy/AdvReac Type Severity Reaction Status Date / Time Iodinated Contrast Media Allergy Other Verified 08/28/24 20:02 (CONTRASTS) meperidine (From Demerol) Allergy Unknown Verified 08/28/24 20:02 Penicillins (PCN) Allergy Rash Verified 08/28/24 20:02 Family History Mother Hypertension Diabetes Father Cancer Surgical History History of colonoscopy with polypectomy History of total hip arthroplasty History of cholecystectomy History of cataract surgery History of appendectomy History of left heart catheterization (09/03/11) Social History household members: none Smoking Status: Former smoker quit date: 04/04/23 alcohol intake: current substance use type: does not use ROS Constitutional Constitutional: Denies fatigue, fever(s), poor appetite, weight gain or weight loss Gastrointestinal Gastrointestinal: Denies belching, bloating, change in bowel habits, change in stool character, chewing difficulty, coffee ground emesis, constipation, cramping, diarrhea, dyspepsia, dysphagia, early satiety, excessive flatus, fecal incontinence, heartburn, hematemesis, hematochezia, hemorrhoids, loose stools, melena, nausea, odynophagia, rectal bleeding, tenesmus, vomiting or weight changes Physical Exam Narrative Physical Examination: General: Awake, alert, oriented x 3 and cooperative, seated upright in the ED bed, fatigued, no evidence of any respiratory distress. Skin: Normal color, normal turgor, no icterus, no cyanosis except bilateral lower extremity venous stasis skin changes, occasional abrasion, staged ecchymoses HEENT: AT/NC, EOMI, PERRLA, MMM, difficult to discern carotid bruits/JVD given thickened neck. Lungs: Diminished, right greater than left, mildly increased respiratory rate but no distress, mildly rhonchorous right base, no rales or wheezing Heart: Regular rate and rhythm; no gallop, rub audible. Abdomen: Soft, morbidly obese, NTTP, distant BS, difficult to discern distention and HSM given habitus. Extremities: No cyanosis, no clubbing, pedal to proximal kline 2+ pitting edema. Neurological: Patient awake, alert, oriented as noted, cognitive function intact; pupils equally reactive to light and accommodation, cranial nerves grossly normal, moving all 4 extremities, no focal deficits, strength severely global decrease secondary to acute presentation Psychiatric: Affect appears fatigued, no acute evidence of depressive or anxiety feelings. Lab / Micro Data 08/29/24 07:48 08/29/24 07:48 Labs: Laboratory Results - last 24 hr 08/28/24 20:30: WBC 30.1 H*, RBC 3.59 L, Hgb 11.5 L, Hct 35.1 L, MCV 97.8, MCH 32.0, MCHC 32.8, RDW Std Deviation 46.1 H, RDW Coeff of [place] 13.0, Plt Count 195, MPV 11.8, Sodium 140, Potassium 3.4 L, Chloride 106, Carbon Dioxide 26.0, Anion Gap 8, BUN 22 H, Creatinine 1.11 H, Estim Creat Clear Calc 55.00, Est GFR (MDRD) Af Amer 62, Est GFR (MDRD) Non-Af 51 L, BUN/Creatinine Ratio 19.8, Glucose 152 H, Calcium 7.3 L, Magnesium 0.7 L*, Total Bilirubin 0.90, AST 15, ALT 25, Alkaline Phosphatase 76, Troponin I High Sens 5, Total Protein 7.1, Albumin 2.8 L, Globulin 4.3 H, Albumin/Globulin Ratio 0.7 L, Lipase 27 L 08/29/24 06:46: POC Glucose 118 H 08/29/24 07:48: WBC 24.6 H, RBC 3.24 L, Hgb 10.4 L, Hct 32.1 L, MCV 99.1 H, MCH 32.1 H, MCHC 32.4, RDW Std Deviation 47.3 H, RDW Coeff of Ju[place]ino 13.1, Plt Count 178, MPV 12.1 H, Immature Gran % (Auto) 0.700, Neut % (Auto) 84.3 H, Lymph % (Auto) 7.6 L, Williams % (Auto) 7.0, Eos % (Auto) 0.2, Baso % (Auto) 0.2, Absolute Neuts (auto) 20.8 H, Absolute Lymphs (auto) 1.86, Nucleated RBC % 0, Diff Path Review Reviewed, Sodium 140, Potassium 4.2, Chloride 106, Carbon Dioxide 26.0, Anion Gap 8, BUN 22 H, Creatinine 1.01, Estim Creat Clear Calc 58.97, Est GFR (MDRD) Af Amer 69, Est GFR (MDRD) Non-Af 57 L, BUN/Creatinine Ratio 21.8 H, Glucose 105, Calcium 7.2 L, Total Bilirubin 0.70, AST 15, ALT 22, Alkaline Phosphatase 72, Total Protein 6.9, Albumin 2.6 L, Globulin 4.3 H, Albumin/Globulin Ratio 0.6 L 08/29/24 11:08: POC Glucose 161 H Micro: Microbiology 08/29/24 01:38 Mucosa - Nasopharyngeal Respiratory Panel (PCR) - Final 08/29/24 02:35 Nasal Secretion MRSA (PCR) - Final 08/29/24 01:58 Urine, Random Legionella Antigen - Final 08/29/24 01:58 Urine, Random Streptococcus pneumoniae Antigen (M - Final 08/28/24 20:30 Mucosa - Nose SARS-CoV-2, Influenza & RSV (PCR) - Final Imaging Radiology Impression Brain CT 08/28/24 20:28 IMPRESSION: 1. No acute intracranial abnormality. 2. Atrophy and chronic small-vessel ischemic changes. Reading Location: [facility] Abdomen/Pelvis CT 08/28/24 20:29 IMPRESSION: 1. Right middle and lower lobe consolidations concerning for multifocal pneumonia. Recommend imaging follow-up after medical management to ensure resolution. 2. Small right basilar effusion. 3. Small hiatal hernia. Dilated esophagus with extensive debris throughout. Correlate for aspiration pneumonia. One or more dose reduction techniques were used (e.g., Automated exposure control, adjustment of the mA and/or kV according to patient size, use of iterative reconstruction technique). Reading Location: [facility] Lumbar Spine CT 08/28/24 20:29 IMPRESSION: No acute osseous abnormality. Moderate multilevel degenerative changes. Right hip prosthesis. Severe left hip osteoarthritis. No paraspinal mass. One or more dose reduction techniques were used (e.g., Automated exposure control, adjustment of the mA and/or kV according to patient size, use of iterative reconstruction technique). Reading Location: [facility] Thoracic Spine CT 08/28/24 20:29 IMPRESSION: No acute osseous abnormality. Multilevel partial vertebral body ankylosis. Mild multilevel degenerative changes. Airspace consolidations in the right middle and right lower lobes concerning for pneumonia. Small hiatal hernia. Diffuse distention of the esophagus containing debris. Correlate for aspiration pneumonia. Coronary artery disease. One or more dose reduction techniques were used (e.g., Automated exposure control, adjustment of the mA and/or kV according to patient size, use of iterative reconstruction technique). Reading [facility] 08/28/24 22:00 IMPRESSION: Right basilar consolidation with probable small right effusion. Reading [facility] Assessment & Plan Assessment/Plan (1) Acute and chronic respiratory failure with hypoxia: (2) Pneumonia: PLAN: Plan 73 y/o F w/ dyspnea in addition to nausea and emesis with worsening weakness . He was diagnosed with acute or chronic COPD with multifocal pneumonia. She also had imaging that showed dilated esophagus with a fluid-filled esophagus. I suspect that she does have either an esophageal gastric junction outflow obstruction or a form of achalasia type I or type II. She had severe illness and esophagitis from coughing on her previous upper endoscopy. I think she is undergoing repeat upper endoscopy with possible dilation possible Botox injection into the lower esophageal sphincter. Recommend 40 mg of PPI twice a day and continue replacement night. Charges/Coding Visit Charges Inpatient E&M: 18499 Init Hosp L3
--- NOTE | 2024-08-29 17:27 | PCM.PN.HOSP ---
Reason for Visit Reason for Visit: Diagnoses Pneumonia, unspecified organism (08/28/24) Acute and chronic respiratory failure with hypoxia (08/28/24) Subjective Subjective Patient was seen and examined today, she is currently on 4 L of oxygen via nasal cannula. Patient does not appear to be in any respiratory distress at rest at this time. Objective Data Objective Data Vital Signs: Vital Signs Temp Pulse Resp BP Pulse Ox O2 Del Method O2 Flow Rate 98.0 F 80 20 H 126/80 H 94 Nasal Cannula 4 08/29/24 13:18 08/29/24 13:18 08/29/24 13:18 08/29/24 13:18 08/29/24 13:18 08/29/24 13:18 08/29/24 13:18 Oxygen Flow Rate (L/min) 4 Oxygen Delivery Method Nasal Cannula Weight: 106.2 kg Body Mass Index (BMI) 39.9 Intake & Output: Intake and Output for Last 24 Hours 08/27/24 08/28/24 08/29/24 23:59 23:59 23:59 Intake Total 1419 / 1419 Balance 1419 / 1419 Lab / Micro Data 08/29/24 07:48 08/29/24 07:48 Labs: Laboratory Results - last 24 hr 08/28/24 20:30: WBC 30.1 H*, RBC 3.59 L, Hgb 11.5 L, Hct 35.1 L, MCV 97.8, MCH 32.0, MCHC 32.8, RDW Std Deviation 46.1 H, RDW Coeff of Juventino 13.0, Plt Count 195, MPV 11.8, Sodium 140, Potassium 3.4 L, Chloride 106, Carbon Dioxide 26.0, Anion Gap 8, BUN 22 H, Creatinine 1.11 H, Estim Creat Clear Calc 55.00, Est GFR (MDRD) Af Amer 62, Est GFR (MDRD) Non-Af 51 L, BUN/Creatinine Ratio 19.8, Glucose 152 H, Calcium 7.3 L, Magnesium 0.7 L*, Total Bilirubin 0.90, AST 15, ALT 25, Alkaline Phosphatase 76, Troponin I High Sens 5, Total Protein 7.1, Albumin 2.8 L, Globulin 4.3 H, Albumin/Globulin Ratio 0.7 L, Lipase 27 L 08/29/24 06:46: POC Glucose 118 H 08/29/24 07:48: WBC 24.6 H, RBC 3.24 L, Hgb 10.4 L, Hct 32.1 L, MCV 99.1 H, MCH 32.1 H, MCHC 32.4, RDW Std Deviation 47.3 H, RDW Coeff of Juventino 13.1, Plt Count 178, MPV 12.1 H, Immature Gran % (Auto) 0.700, Neut % (Auto) 84.3 H, Lymph % (Auto) 7.6 L, [place] % (Auto) 7.0, Eos % (Auto) 0.2, Baso % (Auto) 0.2, Absolute Neuts (auto) 20.8 H, Absolute Lymphs (auto) 1.86, Nucleated RBC % 0, Diff Path Review Reviewed, Sodium 140, Potassium 4.2, Chloride 106, Carbon Dioxide 26.0, Anion Gap 8, BUN 22 H, Creatinine 1.01, Estim Creat Clear Calc 58.97, Est GFR (MDRD) Af Amer 69, Est GFR (MDRD) Non-Af 57 L, BUN/Creatinine Ratio 21.8 H, Glucose 105, Calcium 7.2 L, Total Bilirubin 0.70, AST 15, ALT 22, Alkaline Phosphatase 72, Total Protein 6.9, Albumin 2.6 L, Globulin 4.3 H, Albumin/Globulin Ratio 0.6 L 08/29/24 11:08: POC Glucose 161 H Micro: Microbiology 08/29/24 01:38 Mucosa - Nasopharyngeal Respiratory Panel (PCR) - Final 08/29/24 02:35 Nasal Secretion MRSA (PCR) - Final 08/29/24 01:58 Urine, Random Legionella Antigen - Final 08/29/24 01:58 Urine, Random Streptococcus pneumoniae Antigen (M - Final 08/28/24 20:30 Mucosa - Nose SARS-CoV-2, Influenza & RSV (PCR) - Final Radiography Diagnostic Testing: Radiology Impression Brain CT 08/28/24 20:28 IMPRESSION: 1. No acute intracranial abnormality. 2. Atrophy and chronic small-vessel ischemic changes. Reading Location: [facility]Pelvis CT 08/28/24 20:29 IMPRESSION: 1. Right middle and lower lobe consolidations concerning for multifocal pneumonia. Recommend imaging follow-up after medical management to ensure resolution. 2. Small right basilar effusion. 3. Small hiatal hernia. Dilated esophagus with extensive debris throughout. Correlate for aspiration pneumonia. One or more dose reduction techniques were used (e.g., Automated exposure control, adjustment of the mA and/or kV according to patient size, use of iterative reconstruction technique). Reading Location: [facility] Lumbar Spine CT 08/28/24 20:29 IMPRESSION: No acute osseous abnormality. Moderate multilevel degenerative changes. Right hip prosthesis. Severe left hip osteoarthritis. No paraspinal mass. One or more dose reduction techniques were used (e.g., Automated exposure control, adjustment of the mA and/or kV according to patient size, use of iterative reconstruction technique). Reading Location: [facility] Thoracic Spine CT 08/28/24 20:29 IMPRESSION: No acute osseous abnormality. Multilevel partial vertebral body ankylosis. Mild multilevel degenerative changes. Airspace consolidations in the right middle and right lower lobes concerning for pneumonia. Small hiatal hernia. Diffuse distention of the esophagus containing debris. Correlate for aspiration pneumonia. Coronary artery disease. One or more dose reduction techniques were used (e.g., Automated exposure control, adjustment of the mA and/or kV according to patient size, use of iterative reconstruction technique). Reading Location: [facility] Chest X-Ray 08/28/24 22:00 IMPRESSION: Right basilar consolidation with probable small right effusion. Reading Location: [facility] Physical Exam Const alert, oriented x3, no apparent distress and average body habitus General Appearance: cooperative, well kempt and well developed Orientation / Consciousness: awake, oriented to person, oriented to place and oriented to time HEENT normocephalic, head/scalp atraumatic and moist oral mucous membranes Eyes PERRL, EOMs intact bilaterally and conjunctivae normal Neck supple, no JVD, thyroid normal and no carotid bruits General: trachea midline Resp normal respiratory effort, no retractions, no use of accessory muscles and clear to auscultation bilaterally Auscultation: Negative for rales, rhonchi or wheezes Cardio regular rate, regular rhythm, S1 normal heart sound, S2 normal heart sound, no murmurs, no rub and no gallops GI normal to inspection, nondistended, normoactive bowel sounds, soft to palpation, non-tender and non-distended Extremity no clubbing, cyanosis or edema Skin no rashes or lesions noted General Skin Exam: no breakdown Neuro oriented x3, CN's II-XII intact bilaterally, moves all extremities, no focal motor deficits and no sensory deficits noted Sensorium / Orientation: awake and alert Speech: speech normal Psych affect normal Assessment & Plan Assessment/Plan (1) Acute and chronic respiratory failure with hypoxia: PLAN: Plan 1. Acute on chronic hypoxic respiratory failure secondary to exacerbation of COPD and community-acquired pneumonia-patient will continue on aerosol treatments and IV antibiotics, pulse ox will be monitored, oxygen will be adjusted as necessary #2 community-acquired pneumonia-patient is currently on Rocephin and Flagyl #3 type 2 diabetes-blood sugars will be monitored, sliding scale insulin will be administered as needed #4 paroxysmal atrial fibrillation-patient is on Eliquis and Coreg #5 morbid obesity-complicates care, management, recovery, and prognosis Total clinical time spent by myself addressing the patient's medical issues, reviewing all of her data, and collaborating with patient's care team: 35 minutes Charges/Coding Visit Charges Inpatient E&M: 03834 Subs Hosp L2
[2024-08-29] MEDS: Insulin Lispro 100 UNIT/ML INSULN.PEN SC (17:50)
[2024-08-29 18:10] LABS: Bedside Glucose 181 mg/dL (74-106)
[2024-08-29] MEDS: Atorvastatin Calcium 20 MG Tablet PO (23:36)
[2024-08-29] MEDS: Imipramine HCl 25 MG Tablet PO (23:36)
[2024-08-29] MEDS: Menthol/Lanolin/Calamine/Znox 113 GM Tube 1 APPLIC TOPICAL (23:37)
[2024-08-30] VITALS (18 sets, daily range): BP systolic 108–148; BP diastolic 50–77; PULSE 80–89; RESP 16–22; TEMP 36.2–37.5; O2SAT 87–98; BMI 41.1
[2024-08-30 00:06] LABS: Bedside Glucose 140 mg/dL (74-106)
[2024-08-30] MEDS: metroNIDAZOLE 500 MG/100 ML BAG 100 MG IV ×3 (06:15→21:10)
[2024-08-30 06:48] LABS: Bedside Glucose 141 mg/dL (74-106)
[2024-08-30 07:18] LABS: Absolute Lymphocyte Count 1.54 X10^3/uL (0.83-4.51); Absolute Neutrophil Count 16.6 X10^3/uL (2.0-7.7); Basophil# 0.06 X10^3/uL; Basophil% 0.3 % (0-1); Eosinophil# 0.04 X10^3/uL; Eosinophils% 0.2 % (0-5); Hemoglobin 9.6 g/dL (12.0-15.0); Lymphocyte # 1.54 X10^3/ul (0.83-4.51); Lymphocyte % 7.7 % (19-41); Mean Corpuscular Hgb 31.9 pg (27.0-32.0); Mean Corpuscular Volume 99.7 fL (81-99); Monocyte# 1.62 X10^3/uL; Monocyte% 8.1 % (0-10); NRBC Flagged by Analyzer 0 % (0-5); Neutrophil # 16.63 X10^3/uL (2.7-7.7); Neutrophil % 82.8 % (47-70); POSITIVE DIFFERENTIAL YES; Platelet Count 179 K/mm3 (150-450); RBC Distribution Width SD 46.6 fl (35.1-43.9); Red Blood Count 3.01 M/mm3 (4.2-5.4); White Blood Count 20.1 K/mm3 (4.4-11.0)
[2024-08-30] MEDS: Budesonide Respules 0.5 MG/2 ML AMPUL.NEB. INHALATION ×2 (07:20→19:43)
[2024-08-30 07:28] LABS: Differential Indicated SCAN CRITERIA MET
[2024-08-30 07:47] LABS: Anion Gap 5 (5-15); BUN 19 mg/dL (7-18); BUN/Creat Ratio 19.5 RATIO (10-20); Calcium,Total 6.9 mg/dL (8.5-10.1); Chloride 106 mmol/L (98-107); Creatinine, Serum 0.98 mg/dL (0.55-1.02); EST Glomerular Filtration Rate 59 mL/min (>60); Est Glom Filt Rate - Afr Amer 72 mL/min (>60); Estimated Creatinine Clearance 61.74 ml/min; Glucose 143 mg/dL (74-106); Potassium 3.9 mmol/L (3.5-5.1); Sodium Level 137 mmol/L (136-145)
[2024-08-30] MEDS: Menthol/Lanolin/Calamine/Znox 113 GM Tube 1 APPLIC TOPICAL ×2 (09:54→21:12)
[2024-08-30] MEDS: Ceftriaxone 2 GM in 0.9% Normal Saline (50mL MB+) 50 ML IV (09:54)
[2024-08-30] MEDS: Nystatin Powder 15gm Bottle 1 APPLIC TOPICAL ×2 (09:56→21:12)
[2024-08-30 11:54] LABS: Pathologist Review Reviewed
[2024-08-30 12:23] LABS: Bedside Glucose 142 mg/dL (74-106)
--- NOTE | 2024-08-30 14:58 | PCM.PRE.AN2 ---
ASA Classification* ASA Classification ASA Classification: 3 Assessment & Plan Anesthesia* Anesthesia Assessment Anesthesia Assessment: Discussed sedation and/or anesthesia options, risks, benefits, and alternatives with patient/parents/legal guardian/POA. Questions invited. The patient/parents/legal guardian/POA seems to understand and agrees to proceed with anesthesia plan. Reviewed the physical assessment, medical history, allergy history and patient home medications list prior to surgery/procedure/anesthetic and documented any changes. Performed airway and anesthesia risk assessments. Anesthesia Type Anesthesia Type: MAC History Source History Obtained from:: Patient and Chart Anesthesia Focused Assessment* Temperature: 97.2 F Pulse Rate: 85 Blood Pressure: 148/72 Respiratory Rate: 21 Pulse Ox: 94 Oxygen Delivery Method: Nasal Cannula Oxygen Flow Rate (L/min): 5 Airway Assessment Mouth opens: 2 cm Mallampati Score: IV Teeth Condition: Missing (Patient is edentulous.) Neck Range of motion (ROM): Limited ROM Focused Labs Anesthesia Preop lab: CBC WBC 20.1 K/mm3 (4.4-11.0) H 08/30/24 06:40 08/30/24 RBC 3.01 M/mm3 (4.2-5.4) L 08/30/24 06:40 08/30/24 Hgb 9.6 g/dL (12.0-15.0) L 08/30/24 06:40 08/30/24 Hct 30.0 % (37-47) L 08/30/24 06:40 08/30/24 Plt Count 179 K/mm3 (150-450) 08/30/24 06:40 08/30/24 CHEMISTRY Potassium 3.9 mmol/L (3.5-5.1) 08/30/24 06:40 08/30/24 Sodium 137 mmol/L (136-145) 08/30/24 06:40 08/30/24 Magnesium 0.7 mg/dL (1.6-2.6) L* 08/28/24 20:30 08/28/24 BUN 19 mg/dL (7-18) H 08/30/24 06:40 08/30/24 Creatinine 0.98 mg/dL (0.55-1.02) 08/30/24 06:40 08/30/24 Glucose 143 mg/dL (74-106) H 08/30/24 06:40 08/30/24 POC Glucose 142 mg/dL (74-106) H 08/30/24 11:31 08/30/24 TSH 1.010 uIU/mL (0.358-3.740) 03/24/24 07:34 03/24/24 COAG PT 17.2 SECONDS (11.7-14.9) H 03/24/24 01:04 03/24/24 Pre-Assessment Diagnosis/Proposed Procedure Planned Operative Procedure(s): Esophagogastroduodenoscopy with possible cautery and/or injection therapy. Possible dilation. 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 When Was Last Pacemaker Check QUESTION #4 FULL TEXT: You/Your Family Experience fever (hyperthermia) with Anesthesia Last Oral Intake Last Oral intake: Last Oral Intake NPO since 00:00 08/30/24 13:51 Meds taken in AM with sips of No 08/30/24 13:51 water? Meds patient instructed to take am of surgery PONV PONV - tennis net maker: PONV - tennis net maker Female HX of Motion Sickness HX of N/V After Surgery Non-Smoker Duration of Surgery greater than 60 minutes Number of Risk Factors PONV Score Height & Weight Height & Weight: Anesthesia: Height & Weight Height 5 ft 4.17 in 08/30/24 13:51 Weight: 109.2 kg 08/30/24 13:51 Body Mass Index (BMI) 41.1 08/30/24 13:51 Respiratory Assessment Respiratory Assessment - tennis net maker: Respiratory Tract Infection Hx - tennis net maker Hx Respiratory Tract Infection No 08/30/24 04:08 Any additional information?: Yes Hx Respiratory Tract Infection: Yes (Currently getting over pneumonia.) STOP Sleep Apnea STOP Sleep Apnea - tennis net maker: STOP Sleep Apnea - tennis net maker Hx Hypertension Yes 08/29/24 10:43 Hx Sleep Apnea Yes 08/29/24 01:49 CPAP No 08/29/24 01:49 BIPAP No 08/29/24 01:49 Do you snore loudly (louder than talking or can be heard Do you often feel tired/ fatigued/ sleepy during daytime? Has anyone observed you stop breathing during sleep? STOP Results Positive 08/29/24 01:49 QUESTION #5 FULL TEXT : Do you snore loudly (louder than talking or can be heard through closed doors)? 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 Specify any problems Hx of Preganancy in last 3 N/A 08/29/24 01:49 Months Nurse Filling Out Transfusion CSIGNORIN 08/29/24 01:49 & Questions: Date: 08/29/24 08/29/24 01:49 Time: 01:51 08/29/24 01:49 Patient unable to answer at this time (ie. confused, unrespo /Reproduction History /Reproductive History - tennis net maker: /Reproductive Hx- tennis net maker Hx Now No 08/30/24 04:08 Gestational Age (in weeks): EDC: Hx Hx Para Hx Section SAB No 03/25/24 09:46 Active Medications Active Medications: Current Medications Generic Name Dose Route Start Last Admin Trade Name Freq PRN Reason Stop Dose Admin Acetaminophen 650 mg 08/29/24 01:19 Acetaminophen 325 Mg Tablet PO Q4H PRN PRN Fever, pain 1-04/14 Al Hydroxide/Mg Hydroxide 30 ml 08/29/24 01:19 Mag Hydrox/Al Hydrox/Simeth 30 Ml Udc PO Q6H PRN PRN Gastric Burning Albuterol Sulfate 2.5 mg 08/29/24 01:19 Albuterol 2.5 Mg/3 Ml Vial.Neb. INHALATION Q2H PRN PRN Dyspnea, wheezing Amlodipine Besylate 10 mg 08/29/24 10:00 08/30/24 08:21 Amlodipine 10 Mg Tablet PO Not Given DAILY [facility] Protocol Apixaban 5 mg 08/29/24 10:00 08/30/24 08:20 Apixaban 5 Mg Tablet PO Not Given BID [facility] Aspirin 81 mg 08/29/24 08:00 08/30/24 08:19 Aspirin E.C. 81 Mg Tablet PO Not Given BREAKFAST [facility] Atorvastatin Calcium 20 mg 08/29/24 22:00 08/29/24 23:36 Atorvastatin Calcium 20 Mg Tablet PO 20 mg QHS ANGELITO Administration Budesonide 0.5 mg 08/29/24 01:19 08/30/24 07:20 Budesonide Respules 0.5 Mg/2 Ml Ampul.Neb. INHALATION 0.5 mg BID.RT ANGELITO Administration Bupropion HCl 300 mg 08/29/24 10:00 08/30/24 08:20 Bupropion (Xl) 300 Mg Tablet.Xl PO Not Given DAILY [facility] Calamine/Phenol 1 applic 08/29/24 22:00 08/30/24 09:54 Menthol/Lanolin/Calamine/Znox 113 Gm Tube TOPICAL 09/03/24 22:00 1 applic BID ANGELITO Administration Protocol Carvedilol 25 mg 08/29/24 08:00 08/30/24 08:21 Car[facility]il[facility] 25 Mg [facility] Glucagon 1 mg 08/29/24 01:19 Glucagon 1 Mg/Ml Syringe IM X1 PRN HYPOGLYCEMIA Protocol Guaifenesin 20 ml 08/29/24 01:19 Guaifenesin 10 Ml Udc (200mg/10ml) PO Q4H PRN PRN COUGH Hydralazine HCl 10 mg 08/29/24 01:19 Hydralazine 20 Mg/Ml Vial IV Q4H PRN PRN SBP > 160 Protocol Metronidazole 500 mg in 100 mls @ 100 mls/hr 08/29/24 01:19 08/30/24 14:10 Flagyl IV 0 mls/hr Q8 ANGELITO Infusion Ceftriaxone Sodium 2 gm/ 50 mls @ 100 mls/hr 08/29/24 10:00 08/30/24 10:25 Sodium Chloride IV Infused Q24 ANGELITO Infusion Dextrose 250 mls @ 0 mls/hr 08/29/24 01:19 Dextrose 10%-Water IV .Q0M PRN HYPOGLYCEMIA Protocol As Directed Sodium Chloride 100 mls @ 15 mls/hr 08/29/24 01:27 IV .Q6H40M PRN Saline Flush Sodium Chloride 100 mls @ 15 mls/hr 08/29/24 01:27 IV .Q6H40M PRN Additional IVPB Infusion Imipramine HCl 25 mg 08/29/24 22:00 08/29/24 23:36 Imipramine Hcl 25 Mg Tablet PO 25 mg QHS ANGELITO Administration Insulin Human Lispro 0 unit 08/29/24 01:19 08/30/24 11:32 Insulin Lispro 100 Unit/Ml Insuln.Pen SC Not Given Q6H [facility] Protocol Lisinopril 40 mg 08/29/24 10:00 08/30/24 08:21 Lisinopril 40 Mg Tablet PO Not Given BID [facility] Protocol Melatonin 3 mg 08/29/24 01:19 Melatonin 3 Mg Tablet PO QHS PRN PRN INSOMNIA Nystatin 1 applic 08/29/24 10:00 08/30/24 09:56 Nystatin Powder 15gm Bottle TOPICAL 1 applic BID [facility] Administration Protocol Ondansetron HCl 4 mg 08/29/24 01:19 Ondansetron 4 Mg/2 Ml Vial IV Q8H PRN PRN NAUSEA/VOMITING Pantoprazole Sodium 40 mg 08/29/24 10:00 08/30/24 08:20 Pantoprazole Sodium 40 Mg Tablet PO Not Given BID [facility] Prochlorperazine Edisylate 5 mg 08/29/24 01:19 Prochlorperazine 10 Mg/2 Ml Vial IV Q4H PRN PRN Breakthrough nausea/vomiting Senna/Docusate Sodium 2 tablet 08/29/24 01:19 Senna/Docusate Sodium 1 Tablet PO BID PRN PRN Constipation Sodium Chloride 10 - 40 ml 08/29/24 01:27 0.9% Saline Lock 10 Ml Syringe IV UD PRN SALINE FLUSH PFSH Medical History Diabetes mellitus, type 2 Chronic hypoxic respiratory failure, on home oxygen therapy Morbid obesity CKD (chronic kidney disease), stage III Sleep apnea Nonischemic cardiomyopathy Essential (primary) hypertension LBBB (left bundle branch block) COPD (chronic obstructive pulmonary disease) Hyperlipidemia Nicotine abuse Atherosclerotic heart disease of [place] coronary artery without angina pectoris Bronchitis Home Medications ?Medication ?Instructions ?Recorded ?Last Taken ?Type albuterol sulfate 90 mcg/actuation 2 puff inhalation Q4H PRN 10/02/16 Unknown History aerosol inhaler SHORTNESS OF BREATH/WHEEZING aspirin 81 mg tablet,delayed 81 mg PO DAILY [facility] 10/02/16 08/28/24 10:00 History release imipramine HCl 25 mg tablet 25 - 50 mg PO QHS BLADDER CONTROL 10/02/16 08/27/24 22:00 History simvastatin 40 mg tablet 40 mg PO QHS CHOLESTEROL 10/02/16 08/27/24 22:00 History Nebulizer machine #1 ea 09/15/23 Unknown Rx bupropion HCl 300 mg 24 hr tablet, 300 mg PO DAILY mental health 10/12/23 08/28/24 10:00 History extended release carvedilol 25 mg tablet 25 mg PO Q12H HEART 10/12/23 08/28/24 10:00 History amlodipine 10 mg tablet 10 mg PO DAILY blood pressure #30 10/14/23 08/28/24 10:00 Rx tabs cholecalciferol (vitamin D3) 25 25 mcg PO DAILY vitamin 03/08/24 Unknown History mcg (1,000 unit) capsule fluticasone fur. 200 mcg-umeclid 1 inh inhalation DAILY breathing 03/08/24 Unknown Rx 62.5 mcg-vilant 25 mcg #60 ea inhalat.powder (Trelegy Ellipta) ipratropium 20 mcg-albuterol 100 1 puff inhalation BID 03/08/24 Unknown History mcg/actuation mist for inhalation (Combivent Respimat) metformin 1,000 mg tablet 1,000 mg PO BID diabetes 03/08/24 08/28/24 10:00 History apixaban 5 mg tablet (Eliquis) 5 mg PO BID afib 30 days #60 tabs 03/29/24 08/28/24 10:00 Rx doxycycline monohydrate 100 mg 100 mg PO BID 3 days #6 caps 03/29/24 Unknown Rx capsule furosemide 40 mg tablet 40 mg PO DAILY diuretic #7 tabs 03/29/24 Unknown Rx pantoprazole 40 mg tablet,delayed 40 mg PO BID gerd 30 days #60 tabs 03/29/24 08/28/24 10:00 Rx release prednisone 10 mg tablet 40 mg (4 x 10 mg) PO BREAKFAST #18 03/29/24 Unknown Rx tabs lisinopril 40 mg tablet 40 mg PO BID blood pressure #180 08/03/24 08/28/24 10:00 Rx TABLETS Allergy/AdvReac Type Severity Reaction Status Date / Time Iodinated Contrast Media Allergy Other Verified 08/28/24 20:02 (CONTRASTS) meperidine (From Demerol) Allergy Unknown Verified 08/28/24 20:02 Penicillins (PCN) Allergy Rash Verified 08/28/24 20:02 Family History Mother Hypertension Diabetes Father Cancer Surgical History History of colonoscopy with polypectomy History of total hip arthroplasty History of cholecystectomy History of cataract surgery History of appendectomy History of left heart catheterization (09/03/11) Social History household members: none Smoking Status: Former smoker quit date: 04/04/23 alcohol intake: current substance use type: does not use Review of Systems (Anesthesia) ROS Narrative System reviewed and no additional complaints, except as documented.
--- NOTE | 2024-08-30 15:30 | EGD_PTH ---
PATIENT: LUCIANA AYALA LOC: MS3 U#:[id number] AGE/SX: 73/F ROOM: [facility]311 RE08/28/[address]: Dr. Blaise العلي DO : 1950 BED: 1 DIS: 09/01/2024 SPEC #: [id number] RECD: 08/31/24 10:22 STATUS: BUBBA ANDERSEN #: [id number] EPI: 08/30/24 15:[address]: Ra Xiomarahsaan DEPT: SURGICAL PATHOLOGY RECD BY: Aurora Mclaughlin ENTERED: 08/31/24 10:37 SP TYPE: EGD BIOPSY OTHR DR: MD Dr. Blaise Pastrana DO Dr. Paul Nielsen, MD Dr. Theron Andrus, DO Tissues: Esophagus, NOS Procedures: Special Stain Group I Surgery Specimen Level IV GMS Stain (control) HEADER OPERATION: EGD, biopsy, Botox injection PRE-OP DIAGNOSIS: Esophageal gastric junction outflow obstruction or a form of achalasia type I or type II. TISSUE SUBMITTED: Random esophagus biopsy MICROSCOPIC DIAGNOSIS Esophagus, random biopsy: Fragments of squamous epithelium with minimal chronic inflammation and congestion. See comment. 09/01/2024 COMMENT Special stain for fungi is positive for a few organisms (yeast and pseudohyphae) consistent with Ramila species; matched control is appropriate. This case has been reviewed in consultation with Dr. Garnica who concurs with the above diagnosis. IDC:FA MICROSCOPIC DESCRIPTION Slides are reviewed. GROSS DESCRIPTION Received in fixative is one container labeled with the patient's name and designated Random esophagus biopsy. The specimen consists of multiple irregular fragments of light [place] soft tissue that in aggregate measure 1 x 0.2 x 0.2 cm. The specimen is totally submitted in one cassette. 08/31/2024 TC:3 CPT:03971,13376
--- NOTE | 2024-08-30 15:50 | CASEMGMT ---
[facility] CM into pt room to make aware of HH acceptance, pt is off of the floor at this time.
--- NOTE | 2024-08-30 15:54 | PCM.PN.BLA ---
Progress Note Patient has been n.p.o. since last night. She is for EGD today. Physical Exam Const alert, oriented x3, no apparent distress and average body habitus General Appearance: cooperative, well kempt and well developed Orientation / Consciousness: awake, oriented to person, oriented to place and oriented to time HEENT normocephalic, head/scalp atraumatic and moist oral mucous membranes Eyes PERRL, EOMs intact bilaterally and conjunctivae normal Neck supple, no JVD, thyroid normal and no carotid bruits General: trachea midline Resp normal respiratory effort, no retractions, no use of accessory muscles and clear to auscultation bilaterally Auscultation: Negative for rales, rhonchi or wheezes Cardio regular rate, regular rhythm, S1 normal heart sound, S2 normal heart sound, no murmurs, no rub and no gallops GI normal to inspection, nondistended, normoactive bowel sounds, soft to palpation, non-tender and non-distended Extremity no clubbing, cyanosis or edema Skin no rashes or lesions noted General Skin Exam: no breakdown Neuro oriented x3, CN's II-XII intact bilaterally, moves all extremities, no focal motor deficits and no sensory deficits noted Sensorium / Orientation: awake and alert Speech: speech normal Psych affect normal Assessment & Plan Assessment/Plan (1) Acute and chronic respiratory failure with hypoxia: (2) Pneumonia: PLAN: Plan 73 y/o F w/ dyspnea in addition to nausea and emesis with worsening weakness . He was diagnosed with acute or chronic COPD with multifocal pneumonia. She also had imaging that showed dilated esophagus with a fluid-filled esophagus. I suspect that she does have either an esophageal gastric junction outflow obstruction or a form of achalasia type I or type II. She had severe illness and esophagitis from coughing on her previous upper endoscopy. I think she is undergoing repeat upper endoscopy with possible dilation possible Botox injection into the lower esophageal sphincter. Recommend 40 mg of PPI twice a day and continue replacement night. Visit Charges Inpatient E&M: 24515 Subs Hosp L2
[2024-08-30] MEDS: 0.9% Normal Saline (Pres. free 10 ML Vial (16:12)
[2024-08-30] MEDS: 0.9% Saline Lock 10 ML Syringe IV (16:13)
[2024-08-30] MEDS: Botulinum Toxin A 100 Units Vial IJ (16:16)
--- NOTE | 2024-08-30 16:34 | PCM.POST.ANE ---
Anesthesia: Postop Eval I Current Vital Signs Temperature: 97.2 F Pulse Rate: 84 Blood Pressure: 108/61 Respiratory Rate: 18 Pulse Ox: 92 Oxygen Delivery Method: Nasal Cannula Oxygen Flow Rate (L/min): 4 Assessment Airway patent: Yes Spontaneous unlabored respirations: Yes Mental status: Awake nausea: No Vomiting: No Anesthesia Complication: No Fluid Hydration Crystalloid volume administer (ml): 40 Total IV fluid infused: 40 Progress Note Anesthesia document: Postop Eval 1 completed: Yes
--- NOTE | 2024-08-30 16:36 | OP.EGD_ITS ---
Patient Name: Sally Seth Procedure Date: 08/30/2024 3:55 PM Date of : 1950 Age: 73 Procedure: Upper GI endoscopy Indications: Dysphagia Providers: Jadon Solano DO Referring MD: Jackson Negrete Do Medicines: Propofol per Anesthesia Patient Profile: This is a 73 year old female. Refer to note in patient chart for documentation of history and physical. Patient has symptoms of dysphagia with both liquids and solids. Her most recent EGD for dilation. Complications: No immediate complications. Procedure: Pre-Anesthesia Assessment: - Prior to the procedure, a History and Physical was performed, and patient medications and allergies were reviewed. The patient is competent. The risks and benefits of the procedure and the sedation options and risks were discussed with the patient. All questions were answered and informed consent was obtained. Patient identification and proposed procedure were verified by the physician in the pre-procedure area. Mental Status Examination: alert and oriented. Airway Examination: normal oropharyngeal airway and neck mobility. Respiratory Examination: clear to auscultation. CV Examination: normal. Prophylactic Antibiotics: The patient does not require prophylactic antibiotics. Prior Anticoagulants: The patient has taken no anticoagulant or antiplatelet agents except for NSAID medication. ASA Grade Assessment: II - A patient with mild systemic disease. After reviewing the risks and benefits, the patient was deemed in satisfactory condition to undergo the procedure. The anesthesia plan was to use monitored anesthesia care (MAC). Immediately prior to administration of medications, the patient was re-assessed for adequacy to receive sedatives. The heart rate, respiratory rate, oxygen saturations, blood pressure, adequacy of pulmonary ventilation, and response to care were monitored throughout the procedure. The physical status of the patient was re-assessed after the procedure. After obtaining informed consent, the endoscope was passed under direct vision. Throughout the procedure, the patient's blood pressure, pulse, and oxygen saturations were monitored continuously. The Endoscope was introduced through the mouth, and advanced to the second part of duodenum. The upper GI endoscopy was accomplished without difficulty. The patient tolerated the procedure well. Scope In: 4:07:05 PM Scope Out: 4:21:41 PM Total Procedure Duration Time 0 hours 14 minutes 36 seconds Findings: Diffuse, white plaques were found in the entire esophagus. Biopsies were taken with a cold forceps for histology. Verification of patient identification for the specimen was done. Estimated blood loss was minimal. Abnormal motility was noted in the esophagus. The cricopharyngeus was abnormal. There are extra peristaltic waves in the esophageal body. The distal esophagus/lower esophageal sphincter is spastic, but gives up passage to the endoscope. Tertiary peristaltic waves are noted. Area was successfully injected with 100 units botulinum toxin. A hiatal hernia was present. No gross lesions were noted in the first portion of the duodenum. Impression: - Esophageal plaques were found, consistent with candidiasis. Biopsied. - Abnormal esophageal motility, established achalasia. Injected with botulinum toxin. - Hiatal hernia. - No gross lesions in the first portion of the duodenum. Recommendation: - Return patient to [facility] for ongoing care. - Advance diet as tolerated. - Continue present medications. - Await pathology results. - Nystatin suspension 100,000 units PO QID for 1 week. Procedure Code(s): --- Professional --- 90095, Esophagogastroduodenoscopy, flexible, transoral; with biopsy, single or multiple 88532, 59,51, Esophagogastroduodenoscopy, flexible, transoral; with directed submucosal injection(s), any substance CPT copyright 2021 [employer]. All rights reserved. The codes documented in this report are preliminary and upon plant pathology teacher review may be revised to meet current compliance requirements. Jadon Solano DO 08/30/2024 4:35:44 PM This report has been signed electronically. Number of Addenda: 0 Note Initiated On: 08/30/2024 3:55 PM
--- NOTE | 2024-08-30 16:36 | OP.CCLET_ITS ---
08/30/2024 Justin Bolden MD [address] [id number] Re : Upper GI endoscopy procedure for Sally Lopezler Dear Dr. Bolden This procedure was performed on Friday, August 30, 2024. My impressions and recommendations are as follows: Impressions : - Esophageal plaques were found, consistent with candidiasis. Biopsied. - Abnormal esophageal motility, established achalasia. Injected with botulinum toxin. - Hiatal hernia. - No gross lesions in the first portion of the duodenum. Recommendations : - Return patient to hospital [facility] for ongoing care. - Advance diet as tolerated. - Continue present medications. - Await pathology results. - Nystatin suspension 100,000 units PO QID for 1 week. My findings are described in the full procedure note, which is enclosed. If I can be of further assistance, please feel free to contact me at . Sincerely, Jadon Solano, 08/30/2024 4:35:44 PM This report has been signed electronically.
--- NOTE | 2024-08-30 17:37 | PN.HOSP_ITS ---
Reason for Visit Reason for Visit: Diagnoses Pneumonia, unspecified organism (08/28/24) Acute and chronic respiratory failure with hypoxia (08/28/24) Subjective Subjective Patient was seen and examined today, she is currently on 5 L of oxygen, patient and EGD today and underwent injection with botulinum toxin. There was evidence of esophageal plaques noted consistent with candidiasis. Objective Data Objective Data Vital Signs: Vital Signs Temp Pulse Resp BP Pulse Ox O2 Del Method O2 Flow Rate 99.3 F H 81 20 H 131/61 H 98 High Flow 5 08/30/24 17:26 08/30/24 17:26 08/30/24 17:26 08/30/24 17:26 08/30/24 17:26 08/30/24 17:26 08/30/24 17:26 Oxygen Flow Rate (L/min) 5 Oxygen Delivery Method High Flow Weight: 109.2 kg Body Mass Index (BMI) 41.1 Intake & Output: Intake and Output for Last 24 Hours 08/28/24 08/29/24 08/30/24 23:59 23:59 23:59 Intake Total 1519 / 1519 1190 / 1190 Balance 1519 / 1519 1190 / 1190 Lab / Micro Data 08/30/24 06:40 08/30/24 06:40 Labs: Laboratory Results - last 24 hr 08/29/24 17:46: POC Glucose 181 H 08/29/24 23:43: POC Glucose 140 H 08/30/24 06:20: POC Glucose 141 H 08/30/24 06:40: WBC 20.1 H, RBC 3.01 L, Hgb 9.6 L, Hct 30.0 L, MCV 99.7 H, MCH 31.9, MCHC 32.0, RDW Std Deviation 46.6 H, RDW Coeff of [place] 13.0, Plt Count 179, MPV 12.0, Immature Gran % (Auto) 0.900, Neut % (Auto) 82.8 H, Lymph % (Auto) 7.7 L, [place] % (Auto) 8.1, Eos % (Auto) 0.2, Baso % (Auto) 0.3, Absolute Neuts (auto) 16.6 H, Absolute Lymphs (auto) 1.54, Nucleated RBC % 0, Differential Comment COMMENT, Diff Path Review Reviewed, Sodium 137, Potassium 3.9, Chloride 106, Carbon Dioxide 26.0, Anion Gap 5, BUN 19 H, Creatinine 0.98, Estim Creat Clear Calc 61.74, Est GFR (MDRD) Af Amer 72, Est GFR (MDRD) Non-Af 59 L, BUN/Creatinine Ratio 19.5, Glucose 143 H, Calcium 6.9 L 08/30/24 11:31: POC Glucose 142 H Micro: Microbiology 08/29/24 01:38 Mucosa - Nasopharyngeal Respiratory Panel (PCR) - Final 08/29/24 02:35 Nasal Secretion MRSA (PCR) - Final 08/29/24 01:58 Urine, Random Legionella Antigen - Final 08/29/24 01:58 Urine, Random Streptococcus pneumoniae Antigen (M - Final 08/28/24 20:30 Mucosa - Nose SARS-CoV-2, Influenza & RSV (PCR) - Final Physical Exam Narrative alert, oriented x3, no apparent distress and average body habitus General Appearance: cooperative, well kempt and well developed Orientation / Consciousness: awake, oriented to person, oriented to place and oriented to time HEENT normocephalic, head/scalp atraumatic and moist oral mucous membranes Eyes PERRL, EOMs intact bilaterally and conjunctivae normal Neck supple, no JVD, thyroid normal and no carotid bruits General: trachea midline Resp normal respiratory effort, no retractions, no use of accessory muscles and clear to auscultation bilaterally Auscultation: Negative for rales, rhonchi or wheezes Cardio regular rate, regular rhythm, S1 normal heart sound, S2 normal heart sound, no murmurs, no rub and no gallops GI normal to inspection, nondistended, normoactive bowel sounds, soft to palpation, non-tender and non-distended Extremity no clubbing, cyanosis or edema Skin no rashes or lesions noted General Skin Exam: no breakdown Neuro oriented x3, CN's II-XII intact bilaterally, moves all extremities, no focal motor deficits and no sensory deficits noted Sensorium / Orientation: awake and alert Speech: speech normal Psych affect normal Assessment & Plan Assessment/Plan (1) Acute and chronic respiratory failure with hypoxia: PLAN: Plan 1. Acute on chronic hypoxic respiratory failure secondary to exacerbation of COPD and community-acquired pneumonia-patient will continue on aerosol treatments and IV antibiotics, pulse ox will be monitored, oxygen will be adjusted as necessary #2 community-acquired pneumonia-patient is currently on Rocephin and Flagyl #3 type 2 diabetes-blood sugars will be monitored, sliding scale insulin will be administered as needed #4 paroxysmal atrial fibrillation-patient is on Eliquis and Coreg #5 morbid obesity-complicates care, management, recovery, and prognosis #6 achalasia-patient underwent Botox injection today during her EGD #7 Ramila esophagitis-patient was placed on nystatin swish and swallow Total clinical time spent by myself addressing the patient's medical issues, reviewing all of her data, and collaborating with patient's care team: 35 minutes Charges/Coding Visit Charges Inpatient E&M: 20789 Subs Hosp L2
[2024-08-30] MEDS: Carvedilol 25 MG Tablet PO (17:47)
[2024-08-30 18:15] LABS: Bedside Glucose 116 mg/dL (74-106)
--- NOTE | 2024-08-30 18:48 | PCM.POSTANE2 ---
Anesthesia Postop Eval I Sum Postop Eval Completion status Anesthesia document: Postop Eval 1 completed: Yes Anesthesia Postop Eval I Summary Anesthesia Postop Eval I Summary: Anesthesia Postop Eval I: Assessment Summary Airway patent Yes 08/30/24 16:35 [email or web address] Spontaneous unlabored Yes 08/30/24 16:35 [email or web address] respirations Mental status Awake 08/30/24 16:35 [email or web address] nausea No 08/30/24 16:35 [email or web address] Vomiting No 08/30/24 16:35 [email or web address] Anesthesia Postop Eval I: Fluid Summary Crystalloid volume administer 40 08/30/24 16:35 [email or web address] (ml) Colloids volume administered ( ml) Blood Product volume administered (ml) Total IV fluid infused 40 08/30/24 16:35 [email or web address] Anesthesia Postop Eval I: Summary Notes Anesthesia Complication No 08/30/24 16:35 [email or web address] Anesthesia Complication Comment: Post-operative progress note Anesthesia: Postop Eval II Evaluation Mental status: Awake and Calm Pain Level: 0 nausea: No Vomiting: No Complications Anesthesia Complication: No
[2024-08-30] MEDS: NYSTATIN 500,000 UNIT/5 ML UDC 500000 UNIT PO ×2 (18:58→21:10)
[2024-08-30] MEDS: guaiFENesin 10 ML UDC (200MG/10ML) 20 ML PO (20:58)
[2024-08-30] MEDS: APIXABAN 5 MG TABLET PO (21:07)
[2024-08-30] MEDS: Imipramine HCl 25 MG Tablet PO (21:08)
[2024-08-30] MEDS: Atorvastatin Calcium 20 MG Tablet PO (21:08)
[2024-08-30] MEDS: Pantoprazole Sodium 40 MG Tablet PO (21:08)
[2024-08-30] MEDS: Lisinopril 40 MG Tablet PO (21:08)
[2024-08-30] MEDS: Insulin Lispro 100 UNIT/ML INSULN.PEN SC (21:09)
[2024-08-30 21:53] LABS: Bedside Glucose 170 mg/dL (74-106)
[2024-08-31] VITALS (10 sets, daily range): BP systolic 108–121; BP diastolic 53–76; PULSE 64–93; RESP 16–24; TEMP 36.4–36.9; O2SAT 4–97; BMI 40.8
[2024-08-31] MEDS: metroNIDAZOLE 500 MG/100 ML BAG 100 MG IV ×2 (06:10→14:21)
[2024-08-31 07:21] LABS: Bedside Glucose 113 mg/dL (74-106)
[2024-08-31] MEDS: Budesonide Respules 0.5 MG/2 ML AMPUL.NEB. INHALATION ×2 (07:42→20:05)
[2024-08-31] MEDS: Aspirin E.C. 81 MG Tablet PO (08:32)
[2024-08-31] MEDS: Nystatin Powder 15gm Bottle 1 APPLIC TOPICAL ×2 (08:54→21:24)
[2024-08-31] MEDS: Carvedilol 25 MG Tablet PO ×2 (08:54→18:12)
[2024-08-31] MEDS: Pantoprazole Sodium 40 MG Tablet PO ×2 (08:55→21:24)
[2024-08-31] MEDS: Lisinopril 40 MG Tablet PO ×2 (08:55→21:24)
[2024-08-31] MEDS: buPROPion (XL) 300 MG TABLET.XL PO (08:55)
[2024-08-31] MEDS: amLODIPine 10 MG Tablet PO (08:55)
[2024-08-31] MEDS: NYSTATIN 500,000 UNIT/5 ML UDC 500000 UNIT PO ×4 (08:56→21:24)
[2024-08-31] MEDS: APIXABAN 5 MG TABLET PO ×2 (08:56→21:24)
[2024-08-31] MEDS: Menthol/Lanolin/Calamine/Znox 113 GM Tube 1 APPLIC TOPICAL ×2 (08:56→21:24)
[2024-08-31] MEDS: Ceftriaxone 2 GM in 0.9% Normal Saline (50mL MB+) 50 ML IV (08:57)
--- NOTE | 2024-08-31 10:35 | CASEMGMT ---
Addendum entered by Ronit Bernal 08/31/24 12:32: Received notification from [facility] that pt is asking if she can dc tomorrow instead of today. Spoke with hospitalist, pt will stay yet today. TC jazmine Oh at [facility], updated that pt will not dc today but tomorrow. will plan to see pt on Thursday. MEDINA LANDIN into pt room, pt is aware of this plan. She denies further needs. Original Note: MEDINA LANDIN into pt room, pt lying in bed in no distress. Pt is aware that [facility] has accepted her. Asked pt how she thought she was doing with therapy as we had left it that we would see if she improved prior to ordering it for HH. Pt states that she is doing much better with therapy but that she is open to evals at home. Pt has a portable concentrator that she will have for dc home. Pt denies any further needs. TC jazmine Oh at [facility], she is aware pt will dc today and requesting SN, PT and OT.
[2024-08-31 12:22] LABS: Bedside Glucose 139 mg/dL (74-106)
[2024-08-31] MEDS: guaiFENesin 10 ML UDC (200MG/10ML) 20 ML PO (14:19)
--- NOTE | 2024-08-31 15:38 | PCM.PN.HOSP ---
Reason for Visit Reason for Visit: Diagnoses Pneumonia, unspecified organism (08/28/24) Acute and chronic respiratory failure with hypoxia (08/28/24) Subjective Subjective Patient was seen and examined today, she complains of generalized weakness, she does not feel that she could go home today. Patient is on 4 L of oxygen continuously at rest. Objective Data Objective Data Vital Signs: Vital Signs Temp Pulse Resp BP Pulse Ox O2 Del Method O2 Flow Rate 98.3 F 75 20 H 108/56 L 95 Nasal Cannula 4 08/31/24 14:17 08/31/24 14:17 08/31/24 14:17 08/31/24 14:17 08/31/24 14:17 08/31/24 14:32 08/31/24 14:32 Oxygen Flow Rate (L/min) 4 Oxygen Delivery Method Nasal Cannula Weight: 108.7 kg Body Mass Index (BMI) 40.8 Intake & Output: Intake and Output for Last 24 Hours 08/29/24 08/30/24 08/31/24 23:59 23:59 23:59 Intake Total 1519 / 1519 1540 / 1540 650 / 650 Balance 1519 / 1519 1540 / 1540 650 / 650 Lab / Micro Data 08/30/24 06:40 08/30/24 06:40 Labs: Laboratory Results - last 24 hr 08/30/24 17:43: POC Glucose 116 H 08/30/24 20:57: POC Glucose 170 H 08/31/24 06:28: POC Glucose 113 H 08/31/24 11:57: POC Glucose 139 H Micro: Microbiology 08/29/24 01:38 Mucosa - Nasopharyngeal Respiratory Panel (PCR) - Final 08/29/24 02:35 Nasal Secretion MRSA (PCR) - Final 08/29/24 01:58 Urine, Random Legionella Antigen - Final 08/29/24 01:58 Urine, Random Streptococcus pneumoniae Antigen (M - Final 08/28/24 20:30 Mucosa - Nose SARS-CoV-2, Influenza & RSV (PCR) - Final Physical Exam Narrative alert, oriented x3, no apparent distress and average body habitus General Appearance: cooperative, well kempt and well developed Orientation / Consciousness: awake, oriented to person, oriented to place and oriented to time HEENT normocephalic, head/scalp atraumatic and moist oral mucous membranes Eyes PERRL, EOMs intact bilaterally and conjunctivae normal Neck supple, no JVD, thyroid normal and no carotid bruits General: trachea midline Resp normal respiratory effort, no retractions, no use of accessory muscles and clear to auscultation bilaterally Auscultation: Negative for rales, rhonchi or wheezes Cardio regular rate, regular rhythm, S1 normal heart sound, S2 normal heart sound, no murmurs, no rub and no gallops GI normal to inspection, nondistended, normoactive bowel sounds, soft to palpation, non-tender and non-distended Extremity no clubbing, cyanosis or edema Skin no rashes or lesions noted General Skin Exam: no breakdown Neuro oriented x3, CN's II-XII intact bilaterally, moves all extremities, no focal motor deficits and no sensory deficits noted Sensorium / Orientation: awake and alert Speech: speech normal Psych affect normal Assessment & Plan Assessment/Plan (1) Acute and chronic respiratory failure with hypoxia: PLAN: Plan 1. Acute on chronic hypoxic respiratory failure secondary to exacerbation of COPD and community-acquired pneumonia-patient will continue on aerosol treatments and IV antibiotics, pulse ox will be monitored, oxygen will be adjusted as necessary #2 community-acquired pneumonia-patient will be switched over to oral antibiotics #3 type 2 diabetes-blood sugars will be monitored, sliding scale insulin will be administered as needed #4 paroxysmal atrial fibrillation-patient is on Eliquis and Coreg #5 morbid obesity-complicates care, management, recovery, and prognosis #6 achalasia-patient underwent Botox injection today during her EGD #7 Ramila esophagitis-patient was placed on nystatin swish and swallow Total clinical time spent by myself addressing the patient's medical issues, reviewing all of her data, and collaborating with patient's care team: 35 minutes Charges/Coding Visit Charges Inpatient E&M: 61901 Subs Hosp L2
[2024-08-31 17:35] LABS: Bedside Glucose 121 mg/dL (74-106)
[2024-08-31] MEDS: 0.9% Saline Lock 10 ML Syringe IV ×2 (18:12→21:24)
[2024-08-31] MEDS: Insulin Lispro 100 UNIT/ML INSULN.PEN SC (19:56)
--- NOTE | 2024-08-31 20:05 | PN_ITS ---
Progress Note She underwent and egd with botox placement yesterday. She is not suffering any side effects from the anesthesia or botox injections thus far. Physical Exam Narrative alert, oriented x3, no apparent distress and average body habitus General Appearance: cooperative, well kempt and well developed Orientation / Consciousness: awake, oriented to person, oriented to place and oriented to time HEENT normocephalic, head/scalp atraumatic and moist oral mucous membranes Eyes PERRL, EOMs intact bilaterally and conjunctivae normal Neck supple, no JVD, thyroid normal and no carotid bruits General: trachea midline Resp normal respiratory effort, no retractions, no use of accessory muscles and clear to auscultation bilaterally Auscultation: Negative for rales, rhonchi or wheezes Cardio regular rate, regular rhythm, S1 normal heart sound, S2 normal heart sound, no murmurs, no rub and no gallops GI normal to inspection, nondistended, normoactive bowel sounds, soft to palpation, non-tender and non-distended Extremity no clubbing, cyanosis or edema Skin no rashes or lesions noted General Skin Exam: no breakdown Neuro oriented x3, CN's II-XII intact bilaterally, moves all extremities, no focal motor deficits and no sensory deficits noted Sensorium / Orientation: awake and alert Speech: speech normal Psych affect normal Assessment & Plan Assessment/Plan (1) Acute and chronic respiratory failure with hypoxia: (2) Pneumonia: PLAN: Plan 73 y/o F w/ dyspnea in addition to nausea and emesis with worsening weakness . He was diagnosed with acute or chronic COPD with multifocal pneumonia. She also had imaging that showed dilated esophagus with a fluid-filled esophagus. I suspect that she does have either an esophageal gastric junction outflow obstruction or a form of achalasia type I or type II. She had severe illness and esophagitis from coughing on her previous upper endoscopy. I think she is undergoing repeat upper endoscopy with possible dilation possible Botox injection into the lower esophageal sphincter. Recommend 40 mg of PPI twice a day and continue replacement night. The most common reasons for recommending this procedure are: * Achalasia: This is a movement disorder of the oesophagus which, in particular, is characterized by a failure of the sphincter muscle, which lies at the end of the esophagus at the entrance to the stomach. When this muscle fails to open during swallowing, it causes a delay of food passage through the oes ophagus and into the stomach. * Disorders of more widespread muscle spasm of the oesophagus: In these conditions the muscle of the oesophagus can go into spasm at various points along the length of the gullet. These contractions can be powerful and painful. The process of swallowing can be compromised. I think she is suffering from both of these issues affecting her esophagus. * I told her that her Difficulty swallowing, or dysphagia, can occur for several days or weeks prior to it working. Side effects of the botox in the esopphagus Throat sensations? * A heavy or swollen feeling in the mid-to-low neck * A feeling of a phantom wad of phlegm or swelling in the throat * Noisy breathing during exertion or at night while sleeping Visit Charges Inpatient E&M: 33953 Init Hosp L3
[2024-08-31] MEDS: Doxycycline 100 MG CAPSULE PO (21:23)
[2024-08-31] MEDS: Imipramine HCl 25 MG Tablet PO (21:24)
[2024-08-31] MEDS: Atorvastatin Calcium 20 MG Tablet PO (21:24)
[2024-08-31 21:30] LABS: Bedside Glucose 173 mg/dL (74-106)
[2024-09-01 01:50] VITALS: BP 128/54; PULSE 71; RESP 15; TEMP 36.6; O2SAT 93
[2024-09-01 04:06] VITALS: BMI 40.8
[2024-09-01 05:07] LABS: Bedside Glucose 123 mg/dL (74-106)
[2024-09-01 06:35] VITALS: BP 115/76; PULSE 75; RESP 17; TEMP 36.7; O2SAT 93
[2024-09-01 06:58] LABS: Bedside Glucose 111 mg/dL (74-106)
[2024-09-01] MEDS: Budesonide Respules 0.5 MG/2 ML AMPUL.NEB. INHALATION (07:03)
[2024-09-01 08:18] VITALS: BP 129/64; PULSE 73; RESP 16; TEMP 36.3; O2SAT 93
--- NOTE | 2024-09-01 09:33 | CASEMGMT ---
RN CM into pt room, pt states she feels much better today. Pt states to notify HH that if they do not reach her on the home phone to call the cell phone as she has some numbers blocked and she doesn't know if the hospital is one of them. TC to [facility] intake, left vm with this information.
[2024-09-01 10:08] VITALS: PULSE 74; RESP 18
[2024-09-01] MEDS: Carvedilol 25 MG Tablet PO (10:17)
[2024-09-01] MEDS: Aspirin E.C. 81 MG Tablet PO (10:17)
[2024-09-01] MEDS: Menthol/Lanolin/Calamine/Znox 113 GM Tube 1 APPLIC TOPICAL (10:18)
[2024-09-01] MEDS: Doxycycline 100 MG CAPSULE PO (10:18)
[2024-09-01] MEDS: Nystatin Powder 15gm Bottle 1 APPLIC TOPICAL (10:26)
[2024-09-01] MEDS: NYSTATIN 500,000 UNIT/5 ML UDC 500000 UNIT PO ×2 (10:27→14:39)
[2024-09-01] MEDS: APIXABAN 5 MG TABLET PO (10:27)
[2024-09-01] MEDS: amLODIPine 10 MG Tablet PO (10:27)
[2024-09-01] MEDS: buPROPion (XL) 300 MG TABLET.XL PO (10:28)
[2024-09-01] MEDS: Pantoprazole Sodium 40 MG Tablet PO (10:28)
[2024-09-01] MEDS: Lisinopril 40 MG Tablet PO (10:28)
--- NOTE | 2024-09-01 11:16 | PCM.DC ---
Discharge Instructions Diet Discharge Diet: 1800 Calorie Control Diet DC O2, CPAP, BIPAP needs Home O2 Discharge instructions: Yes Type of respiratory needs?: Oxygen Oxygen frequency: Continuous Continuous oxygen liters per minute: 2 L and With Ambulation Oxygen liters per minute during Ambulation: 4 L Dressing / Incision Discharge Activity: Return to Normal Activity Weight Bearing Status: Full weight bearing Follow Up Care Test Results: Test results from this visit will be discussed in further detail at your follow-up appointment, if applicable. Discharge Plan Admission Admit Date/Time: 08/28/24 23:07 Primary Reason for Your Visit: Exacerbation of COPD, community-acquired pneumonia Attending Provider: Blaise العلي Primary Care Provider: Justin Bolden Consulting Providers: Chantelle Chavarria Discharge Orders/Prescriptions Prescriptions: New doxycycline monohydrate 100 mg Capsule 100 mg PO BID Qty: 7 0RF Continued metformin 1,000 mg tablet 1,000 mg PO BID cholecalciferol (vitamin D3) 25 mcg (1,000 unit) capsule 25 mcg PO DAILY Combivent Respimat 20-100 mcg/actuation mist 1 puff inhalation BID Trelegy Ellipta 200-62.5-25 mcg blister with device 1 inh inhalation DAILY Qty: 60 6RF aspirin 81 MG tablet 81 mg PO DAILY simvastatin 40 MG tablet 40 mg PO QHS albuterol sulfate 1 PUFF inhaler 2 puff INHALATION Q4H PRN (Reason: SHORTNESS OF BREATH/WHEEZING ) imipramine HCl 25 MG tablet 25 - 50 mg PO QHS carvedilol 25 mg tablet 25 mg PO Q12H bupropion HCl 300 mg tablet extended release 24 hr 300 mg PO DAILY amlodipine 10 mg Tablet 10 mg PO DAILY Qty: 30 1RF pantoprazole 40 mg Tablet,Delayed Release (Dr/Ec) 40 mg PO BID 30 Days Qty: 60 0RF Eliquis 5 mg Tablet 5 mg PO BID 30 Days Qty: 60 0RF furosemide 40 mg tablet 40 mg PO DAILY Qty: 7 0RF (DME) Nebulizer machine See Rx Instructions .ROUTE .MEDSUPPLY Qty: 1 0RF Rx Instructions: As directed lisinopril 40 mg tablet 40 mg PO BID Qty: 180 3RF Discontinued doxycycline monohydrate 100 mg Capsule 100 mg PO BID 3 Days Qty: 6 0RF prednisone 10 mg tablet 40 mg PO BREAKFAST Qty: 18 0RF Rx Instructions: Take 3 tablets daily for 3 days then 2 tablets daily for 3 days then 1 tablet daily for 3 days Referrals / Follow Up: Justin Bolden MD [Primary Care Provider] - 09/08/24 2:00 pm Disposition Disposition (needs filled in before D/C Order can be placed): Home Health Service
[2024-09-01 11:23] VITALS: O2SAT 84; O2SAT 86; O2SAT 87; O2SAT 90; O2SAT 92
[2024-09-01 11:52] LABS: Bedside Glucose 188 mg/dL (74-106)
--- NOTE | 2024-09-01 11:54 | DS.PCM_ITS ---
Providers Date of Admission: 08/28/24 Date of Discharge: 09/01/24 Primary Care Physician: Dr. Justin Bolden MD Consultations 08/29/24 11:09 Consult: Gastroenterology Routine Consulting Provider: [facility] Reason for Consult: Possible achalasia EMERGENT Consult: No Notified: Yes Date Notified: 08/29/24 Time Notified: 11:09 Method of Notification: Verbal Reason For Visit: ACUTE ON CHRONIC HYPOXIA, PNA Diagnosis Discharge Diagnosis (1) Acute and chronic respiratory failure with hypoxia: Status: Chronic Code(s): J96.21 - Acute and chronic respiratory failure with hypoxia (2) Pneumonia: Status: Acute Code(s): J18.9 - Pneumonia, unspecified organism Plan 1. Acute on chronic hypoxic respiratory failure secondary to exacerbation of COPD and community-acquired pneumonia-patient will continue on aerosol treatments and IV antibiotics, pulse ox will be monitored, oxygen will be adjusted as necessary #2 community-acquired pneumonia-patient will be switched over to oral antibiotics #3 type 2 diabetes-blood sugars will be monitored, sliding scale insulin will be administered as needed #4 paroxysmal atrial fibrillation-patient is on Eliquis and Coreg #5 morbid obesity-complicates care, management, recovery, and prognosis #6 achalasia-patient underwent Botox injection today during her EGD #7 Ramila esophagitis-patient was placed on nystatin swish and swallow Total clinical time spent by myself addressing the patient's medical issues, reviewing all of her data, and collaborating with patient's care team: 35 minutes Medications at Discharge Home Medications albuterol sulfate 90 mcg/actuation aerosol inhaler 2 puff inhalation Q4H PRN SHORTNESS OF BREATH/WHEEZING 10/02/16 aspirin 81 mg tablet,delayed release 81 mg PO DAILY HEART HEALTH 10/02/16 imipramine HCl 25 mg tablet 25 - 50 mg PO QHS BLADDER CONTROL 10/02/16 simvastatin 40 mg tablet 40 mg PO QHS CHOLESTEROL 10/02/16 Nebulizer machine #1 ea 09/15/23 bupropion HCl 300 mg 24 hr tablet, extended release 300 mg PO DAILY mental health 10/12/23 carvedilol 25 mg tablet 25 mg PO Q12H HEART 10/12/23 amlodipine 10 mg tablet 10 mg PO DAILY blood pressure #30 tabs 10/14/23 cholecalciferol (vitamin D3) 25 mcg (1,000 unit) capsule 25 mcg PO DAILY vitamin 03/08/24 fluticasone fur. 200 mcg-umeclid 62.5 mcg-vilant 25 mcg inhalat.powder (Trelegy Ellipta) 1 inh inhalation DAILY breathing #60 ea 03/08/24 ipratropium 20 mcg-albuterol 100 mcg/actuation mist for inhalation (Combivent Respimat) 1 puff inhalation BID 03/08/24 metformin 1,000 mg tablet 1,000 mg PO BID diabetes 03/08/24 apixaban 5 mg tablet (Eliquis) 5 mg PO BID afib 30 days #60 tabs 03/29/24 furosemide 40 mg tablet 40 mg PO DAILY diuretic #7 tabs 03/29/24 pantoprazole 40 mg tablet,delayed release 40 mg PO BID gerd 30 days #60 tabs 03/29/24 lisinopril 40 mg tablet 40 mg PO BID blood pressure #180 TABLETS 08/03/24 doxycycline monohydrate 100 mg capsule 100 mg PO BID #7 caps 09/01/24 Hospital Course Operations None Procedures EGD Summary of Care Provided Minutes Spent on Discharge: 32 Hospital Course: This 73-year-old white female was seen in the emergency room at [facility] with a chief complaint of increased shortness of breath. Patient also complained of generalized weakness and nausea and vomiting. Patient has home oxygen at home which she uses chronically. Labs obtained in the ER showed an elevated white blood cell count at 30.1, hemoglobin was 11.5, potassium was 3.4, creatinine was 1.11 and BUN was 22. CT of the abdomen with pelvis showed right middle and lower lobe consolidations concerning for pneumonia in the lung. Patient was admitted to [place] [address] for exacerbation of COPD and pneumonia, she was treated with IV antibiotics and due to persistent problems with dysphagia was seen in consultation by gastroenterology and underwent an EGD with injection of botulinum toxin for achalasia. On 09/01/2024, patient was seen and examined: On examination she appeared in good health and spirits, she does not appear to be in any distress. Vital signs as documented. Skin warm and dry and without overt rashes. Neck without JVD, thyroid appears normal, trachea is midline, neck is supple. Lungs clear, normal air movement was noted. Heart exam notable for regular rhythm, normal sounds and absence of murmurs, rubs or gallops. Abdomen unremarkable and without evidence of organomegaly, masses, or abdominal aortic enlargement, bowel sounds are present in all 4 quadrants, no abdominal tenderness was noted. Extremities nonedematous, no cyanosis was noted, no clubbing was noted. Neuro: Cranial nerves II through XII are grossly intact, no focal motor deficits were noted, sensation to light touch and pinprick is intact, motor exam 5/5 throughout. Psych: Patient is alert and oriented x3, she does not appear anxious or depressed, she does not appear agitated. Patient appears stable for discharge home on 09/01/2024. Patient required 2 L of oxygen at rest and 4 L of oxygen on ambulation. Weight / BMI Weight Weight: 108.7 kg Body Mass Index (BMI) 40.8 ABG / Lab / Microbiology Data 08/30/24 06:40 08/30/24 06:40 Laboratory: Laboratory Results - last 24 hr 08/31/24 11:57: POC Glucose 139 H 08/31/24 17:11: POC Glucose 121 H 08/31/24 19:55: POC Glucose 173 H 09/01/24 01:52: POC Glucose 123 H 09/01/24 06:27: POC Glucose 111 H 09/01/24 11:35: POC Glucose 188 H Microbiology: Microbiology 08/29/24 01:38 Mucosa - Nasopharyngeal Respiratory Panel (PCR) - Final 08/29/24 02:35 Nasal Secretion MRSA (PCR) - Final 08/29/24 01:58 Urine, Random Legionella Antigen - Final 08/29/24 01:58 Urine, Random Streptococcus pneumoniae Antigen (M - Final 08/28/24 20:30 Mucosa - Nose SARS-CoV-2, Influenza & RSV (PCR) - Final D/C Instructions Discharge Diet: 1800 Calorie Control Diet Weight Bearing Status: Full weight bearing DC O2, CPAP, BIPAP Needs Home O2 Discharge instructions: Yes Type of respiratory needs?: Oxygen Oxygen frequency: Continuous Continuous oxygen liters per minute: 2 L and With Ambulation Oxygen liters per minute during Ambulation: 4 L DC home with Oxygen: Yes Home O2 MD Review: I have reviewed the oxygen testing, and the patient qualifies for home oxygen equipment and portability. The patient is mobile in the home and the community. Meaningful Use Info Meaningful Use Meaningful Use Diagnoses (Choose all that apply): None applicable Ischemic Stroke Statin Dosing Therapy Reference: STATIN DOSE THERAPY REFERENCE: * Patients > 75 years receive moderate or high dose statin therapy. * Patients 75 years or YOUNGER should receive HIGH intensity statin dose unless contraindicated. You will be required to document reason for non-treatment if statin daily dose does not meet guidelines. HIGH DOSE STATIN THERAPY DAILY Atorvastatin > than or = to 40 mg Rosuvastatin > than or = to 20 mg Amlodipine + Atorvastatin > than or = to 2.5/40 mg Ezetimibe + Simvastatin 10/80 mg Simvastatin 80mg Discharge Plan Admission Admit Date/Time: 08/28/24 23:07 Primary Reason for Your Visit: Exacerbation of COPD, community-acquired pneumonia Attending Provider: Blaise العلي Primary Care Provider: Justin Bolden Consulting Providers: Chantelle Chavarria Discharge Orders/Prescriptions Prescriptions: New doxycycline monohydrate 100 mg Capsule 100 mg PO BID Qty: 7 0RF Continued metformin 1,000 mg tablet 1,000 mg PO BID cholecalciferol (vitamin D3) 25 mcg (1,000 unit) capsule 25 mcg PO DAILY Combivent Respimat 20-100 mcg/actuation mist 1 puff inhalation BID Trelegy Ellipta 200-62.5-25 mcg blister with device 1 inh inhalation DAILY Qty: 60 6RF aspirin 81 MG tablet 81 mg PO DAILY simvastatin 40 MG tablet 40 mg PO QHS albuterol sulfate 1 PUFF inhaler 2 puff INHALATION Q4H PRN (Reason: SHORTNESS OF BREATH/WHEEZING ) imipramine HCl 25 MG tablet 25 - 50 mg PO QHS carvedilol 25 mg tablet 25 mg PO Q12H bupropion HCl 300 mg tablet extended release 24 hr 300 mg PO DAILY amlodipine 10 mg Tablet 10 mg PO DAILY Qty: 30 1RF pantoprazole 40 mg Tablet,Delayed Release (Dr/Ec) 40 mg PO BID 30 Days Qty: 60 0RF Eliquis 5 mg Tablet 5 mg PO BID 30 Days Qty: 60 0RF furosemide 40 mg tablet 40 mg PO DAILY Qty: 7 0RF (DME) Nebulizer machine See Rx Instructions .ROUTE .MEDSUPPLY Qty: 1 0RF Rx Instructions: As directed lisinopril 40 mg tablet 40 mg PO BID Qty: 180 3RF Discontinued doxycycline monohydrate 100 mg Capsule 100 mg PO BID 3 Days Qty: 6 0RF prednisone 10 mg tablet 40 mg PO BREAKFAST Qty: 18 0RF Rx Instructions: Take 3 tablets daily for 3 days then 2 tablets daily for 3 days then 1 tablet daily for 3 days Referrals / Follow Up: Justin Bolden MD [Primary Care Provider] - 09/08/24 2:00 pm Disposition Disposition (needs filled in before D/C Order can be placed): Home Health Service Charges/Coding Visit Charges Inpatient E&M: 05655 Disch Hosp >30min
[2024-09-01] MEDS: Insulin Lispro 100 UNIT/ML INSULN.PEN SC (12:08)
--- NOTE | 2024-09-01 12:15 | CASEMGMT ---
Sent updated [place] [facility] [place] via [facility].
--- NOTE | 2024-09-01 12:45 | PHA.DC_ITS ---
Pharmacy [facility] has performed discharge medication reconciliation and counseling for this patient. Doxycycline was sent to [facility] but patient would like to have it filled at [facility]. This [facility] called [facility], spoke to Rahel and requested transfer. 1. DOXYCYCLINE 100MG PO BID X 7 DAYS The patient's discharge medication list was reviewed for discrepancies and discrepancies were resolved. The patient was counseled on the following discharge medications and changes in medications for homegoing were reviewed. The Reason for Use, instructions for use, and potential side effects were reviewed for all new medications. The patient's questions regarding all of their medications were answered. The patient was able to verbally demonstrate an understanding of their discharge medications. Medications at Discharge Home Medications albuterol sulfate 90 mcg/actuation aerosol inhaler 2 puff inhalation Q4H PRN SHORTNESS OF BREATH/WHEEZING 10/02/16 aspirin 81 mg tablet,delayed release 81 mg PO DAILY HEART HEALTH 10/02/16 imipramine HCl 25 mg tablet 25 - 50 mg PO QHS BLADDER CONTROL 10/02/16 simvastatin 40 mg tablet 40 mg PO QHS CHOLESTEROL 10/02/16 Nebulizer machine #1 ea 09/15/23 bupropion HCl 300 mg 24 hr tablet, extended release 300 mg PO DAILY mental health 10/12/23 carvedilol 25 mg tablet 25 mg PO Q12H HEART 10/12/23 amlodipine 10 mg tablet 10 mg PO DAILY blood pressure #30 tabs 10/14/23 cholecalciferol (vitamin D3) 25 mcg (1,000 unit) capsule 25 mcg PO DAILY vitamin 03/08/24 fluticasone fur. 200 mcg-umeclid 62.5 mcg-vilant 25 mcg inhalat.powder (Trelegy Ellipta) 1 inh inhalation DAILY breathing #60 ea 03/08/24 ipratropium 20 mcg-albuterol 100 mcg/actuation mist for inhalation (Combivent Respimat) 1 puff inhalation BID 03/08/24 metformin 1,000 mg tablet 1,000 mg PO BID diabetes 03/08/24 apixaban 5 mg tablet (Eliquis) 5 mg PO BID afib 30 days #60 tabs 03/29/24 furosemide 40 mg tablet 40 mg PO DAILY diuretic #7 tabs 03/29/24 pantoprazole 40 mg tablet,delayed release 40 mg PO BID gerd 30 days #60 tabs 03/29/24 lisinopril 40 mg tablet 40 mg PO BID blood pressure #180 TABLETS 08/03/24 doxycycline monohydrate 100 mg capsule 100 mg PO BID #7 caps 09/01/24
--- NOTE | 2024-09-01 18:42 | PN_ITS ---
Progress Note Patient states that her breathing is a lot better. Physical Exam Narrative alert, oriented x3, no apparent distress and average body habitus General Appearance: cooperative, well kempt and well developed Orientation / Consciousness: awake, oriented to person, oriented to place and oriented to time HEENT normocephalic, head/scalp atraumatic and moist oral mucous membranes Eyes PERRL, EOMs intact bilaterally and conjunctivae normal Neck supple, no JVD, thyroid normal and no carotid bruits General: trachea midline Resp normal respiratory effort, no retractions, no use of accessory muscles and clear to auscultation bilaterally Auscultation: Negative for rales, rhonchi or wheezes Cardio regular rate, regular rhythm, S1 normal heart sound, S2 normal heart sound, no murmurs, no rub and no gallops GI normal to inspection, nondistended, normoactive bowel sounds, soft to palpation, non-tender and non-distended Extremity no clubbing, cyanosis or edema Skin no rashes or lesions noted General Skin Exam: no breakdown Neuro oriented x3, CN's II-XII intact bilaterally, moves all extremities, no focal motor deficits and no sensory deficits noted Sensorium / Orientation: awake and alert Speech: speech normal Psych affect normal Assessment & Plan Assessment/Plan (1) Acute and chronic respiratory failure with hypoxia: (2) Pneumonia: PLAN: Plan 73 y/o F w/ dyspnea in addition to nausea and emesis with worsening weakness . He was diagnosed with acute or chronic COPD with multifocal pneumonia. She also had imaging that showed dilated esophagus with a fluid-filled esophagus. I suspect that she does have either an esophageal gastric junction outflow obstruction or a form of achalasia type I or type II. She had severe illness and esophagitis from coughing on her previous upper endoscopy. I think she is undergoing repeat upper endoscopy with possible dilation possible Botox injection into the lower esophageal sphincter. Recommend 40 mg of PPI twice a day and continue replacement night. The most common reasons for recommending this procedure are: * Achalasia: This is a movement disorder of the oesophagus which, in particular, is characterized by a failure of the sphincter muscle, which lies at the end of the esophagus at the entrance to the stomach. When this muscle fails to open during swallowing, it causes a delay of food passage through the oesophagus and into the stomach. * Disorders of more widespread muscle spasm of the oesophagus: In these conditions the muscle of the oesophagus can go into spasm at various points along the length of the gullet. These contractions can be powerful and painful. The process of swallowing can be compromised. I think she is suffering from both of these issues affecting her esophagus. * I told her that her Difficulty swallowing, or dysphagia, can occur for several days or weeks prior to it working. Side effects of the botox in the esopphagus Throat sensations? * A heavy or swollen feeling in the mid-to-low neck * A feeling of a phantom wad of phlegm or swelling in the throat * Noisy breathing during exertion or at night while sleeping Visit Charges Inpatient E&M: 05513 Subs Hosp L3
== END 2024-09-01 16:50 | disposition home health service (06) | DRG 177 ==
LOC: ED 20:37 → MS3 23:51
PROVIDERS: Anesthesiology; Internal Medicine Gastroenterology; Admitting Provider Family Medicine; Emergency Provider Emergency Medicine; PCP Family Medicine; Referring Provider Emergency Medicine; Visit Provider Internal Medicine
PROC: 0DJ08ZZ Inspection of Upper Intestinal Tract, Via Natural or Artificial Opening Endoscopic (ICD-10-PCS; CPT 43235; principal; 2024-08-30 15:25)
DX: J69.0 Pneumonitis due to inhalation of food and vomit (principal); J96.21 Acute and chronic respiratory failure with hypoxia; B37.81 Candidal esophagitis; I42.8 Other cardiomyopathies; J44.0 Chronic obstructive pulmonary disease with (acute) lower respiratory infection; Z68.41 Body mass index [BMI] 40.0-44.9, adult; J44.1 Chronic obstructive pulmonary disease with (acute) exacerbation; K22.0 Achalasia of cardia; E11.22 Type 2 diabetes mellitus with diabetic chronic kidney disease; N18.30 Chronic kidney disease, stage 3 unspecified; I12.9 Hypertensive chronic kidney disease with stage 1 through stage 4 chronic kidney disease, or unspecified chronic kidney disease; F32.A Depression, unspecified; D53.9 Nutritional anemia, unspecified; I48.0 Paroxysmal atrial fibrillation; J18.9 Pneumonia, unspecified organism; E66.01 Morbid (severe) obesity due to excess calories; E78.5 Hyperlipidemia, unspecified; I25.10 Atherosclerotic heart disease of native coronary artery without angina pectoris; G47.33 Obstructive sleep apnea (adult) (pediatric); E87.6 Hypokalemia; F41.9 Anxiety disorder, unspecified; K21.9 Gastro-esophageal reflux disease without esophagitis; I89.0 Lymphedema, not elsewhere classified; K44.9 Diaphragmatic hernia without obstruction or gangrene; Z99.81 Dependence on supplemental oxygen; Z79.899 Other long term (current) drug therapy; Z79.82 Long term (current) use of aspirin; Z79.01 Long term (current) use of anticoagulants; Z79.84 Long term (current) use of oral hypoglycemic drugs; Z88.0 Allergy status to penicillin; Z87.891 Personal history of nicotine dependence; Z91.81 History of falling
CPT/HCPCS: 36415; 70450; 71045; 72128; 72131; 74176; 74230; 80048; 80053; 82962; 83690; 83735; 84484; 85025; 85027; 87449; 87631; 87633; 87641; 88305; 88312; 92611; 93005; 94640; 94668; 97116; 97162; 97166; 97530; 97535; 99285; A4216; J0585; J0696; J2405

== ENCOUNTER → 2024-09-08 | Outpatient (CLI) | payer MEDICARE, OTHER, SELFPAY ==
[2024-09-08 17:40] LABS: Absolute Lymphocyte Count 1.49 X10^3/uL (0.83-4.51); Absolute Neutrophil Count 13.2 X10^3/uL (2.0-7.7); Basophil# 0.09 X10^3/uL; Basophil% 0.6 % (0-1); Eosinophil# 0.13 X10^3/uL; Eosinophils% 0.8 % (0-5); Hematocrit 36.2 % (37-47); Hemoglobin 11.6 g/dL (12.0-15.0); Lymphocyte # 1.49 X10^3/ul (0.83-4.51); Lymphocyte % 9.5 % (19-41); Mean Corpuscular Hgb 32.1 pg (27.0-32.0); Mean Corpuscular Volume 100.3 fL (81-99); Mean Platelet Vol. 11.3 fl (6.2-12.0); Monocyte% 3.8 % (0-10); NRBC Flagged by Analyzer 0 % (0-5); Neutrophil # 13.19 X10^3/uL (2.7-7.7); Neutrophil % 84.1 % (47-70); Platelet Count 337 K/mm3 (150-450); RBC Distribution Width CV 13.5 % (11.6-14.6); RBC Distribution Width SD 49.3 fl (35.1-43.9); Red Blood Count 3.61 M/mm3 (4.2-5.4); White Blood Count 15.7 K/mm3 (4.4-11.0)
[2024-09-08 18:54] LABS: Anion Gap 17 (5-15); BUN 19 mg/dL (4-19); BUN/Creat Ratio 17.8 RATIO (10-20); Calcium,Total 8.3 mg/dL (7.6-11.0); Carbon Dioxide 22.4 mmol/L (21.0-32.0); Chloride 104 mmol/L (98-108); Creatinine, Serum 1.07 mg/dL (0.70-1.20); EST Glomerular Filtration Rate 55 (>60); Glucose 163 mg/dL (70-99); Potassium 3.5 mmol/L (3.3-5.1); Sodium Level 143 mmol/L (133-145)
[2024-09-08 19:40] LABS: PTHIN 88 pg/mL (11-61)
== END | disposition home or self-care (01) ==
LOC: MFPLAB 14:28
PROVIDERS: PCP Family Medicine; Referring Provider Family Medicine; Visit Provider Family Medicine
DX: E83.51 Hypocalcemia (principal); D64.9 Anemia, unspecified
CPT/HCPCS: 36415; 80048; 82330; 83970; 85025

== ENCOUNTER → 2024-10-07 | Outpatient (CLI) | payer MEDICARE, OTHER, SELFPAY ==
--- NOTE | 2024-10-07 14:58 | CT_ITS ---
PROCEDURE: LOW DOSE CT LUNG SCREENING 10/07/2024 REASON FOR EXAM: SMOKER QUIT 03/2023. Prior to this 40 pack-year history of smoking. COPD. Home oxygen. TECHNIQUE: Low Dose CT Lung screening without contrast. Coronal and Sagittal reconstruction series were provided. One or more dose reduction techniques were used (e.g., Automated exposure control, adjustment of the mA and/or kV according to patient size, use of iterative reconstruction technique). REFERENCE LINK: [employer] Lung-RADS RADIATION DOSE SUMMARY: CTDlvol: 4.02 mGy DLP: 142.95 mGycm COMPARISON: Noncontrast chest CT from March 24, 2024 FINDINGS: PULMONARY NODULES: (Only nodules >3mm are reported) Nodules described below are on series 2 unless otherwise specified. Pulmonary Nodules: No worrisome nodules are identified. Hardware:None. Lymph Nodes:No suspicious adenopathy. Heart and Vasculature:Heart is upper limits normal in size. Coronary Artery Calcifications: Moderately pronounced calcific coronary artery atherosclerosis is present. Lungs and Airways: Pleural thickening and scarring in the right base has improved compared to the prior study from March 2024. Other foci of pleural-based linear stranding appear the same or improved. Pleura:No pleural effusions. Upper Abdomen:No acute process identified in the upper abdomen. Bones:No aggressive bone lesions. CT/Low Dose CT Lung Screening IMPRESSION: No worrisome pulmonary nodules are identified. Coronary artery calcification (CAC) is moderately pronounced. Lung-RADS Category: 1 Other Significant Findings: None. Recommendation: Continue annual low-dose screening so long as the criteria for scanning are met. Reading [facility]
== END | disposition home or self-care (01) ==
LOC: CT 14:46
PROVIDERS: PCP Family Medicine; Referring Provider Nurse Practitioner Acute Care; Visit Provider Nurse Practitioner Acute Care
DX: F17.210 Nicotine dependence, cigarettes, uncomplicated (principal)
CPT/HCPCS: 71271

== ENCOUNTER → 2025-03-28 | Outpatient (CLI) | payer MEDICARE, OTHER, SELFPAY ==
[2025-03-28 16:04] LABS: Hematocrit 33.7 % (37-47); Hemoglobin 11.2 g/dL (12.0-15.0); Immature Granulocytes Count 0.110 X10^3/uL (0.0-0.0); Mean Corp Hgb Conc 33.2 g/dL (32-36); Mean Corpuscular Volume 97.1 fL (81-99); Mean Platelet Vol. 12.0 fl (6.2-12.0); NRBC Flagged by Analyzer 0 % (0-5); Platelet Count 214 K/mm3 (150-450); RBC Distribution Width CV 13.2 % (11.6-14.6); RBC Distribution Width SD 47.5 fl (35.1-43.9); Red Blood Count 3.47 M/mm3 (4.2-5.4); White Blood Count 16.5 K/mm3 (4.4-11.0)
[2025-03-28 16:26] LABS: AST(SGOT) 33 U/L (<=31); Alanine Aminotransfer ALT/SGPT 33 U/L (<=34); Albumin, Serum 3.7 g/dL (3.4-4.8); Alkaline Phosphatase 96 U/L (35-104); Anion Gap 14 (5-15); BUN 19 mg/dL (4-19); BUN/Creat Ratio 16.7 RATIO (10-20); Calcium,Total 7.4 mg/dL (7.6-11.0); Carbon Dioxide 26.2 mmol/L (21.0-32.0); Chloride 101 mmol/L (98-108); Cholesterol 134 mg/dL (<=200); Globulin 3.2 g/dL (2.2-4.2); Glucose 151 mg/dL (70-99); Low Density Lipoprotein Calc. 56 mg/dL; Potassium 3.5 mmol/L (3.3-5.1); Pro- Brain NATRIURETIC PEPTIDE 782 pg/mL (<=900); Triglycerides 91 mg/dL; Very Low Density Lipoprotein 18 mg/dL (5-40); cholesterol:hdl ratio screen 2.24
== END | disposition home or self-care (01) ==
LOC: LAB 14:59
PROVIDERS: PCP Family Medicine; Referring Provider Student in an Organized Health Care Education/Training Program; Visit Provider Student in an Organized Health Care Education/Training Program
DX: I10 Essential (primary) hypertension (principal); R60.0 Localized edema; E78.00 Pure hypercholesterolemia, unspecified; I25.10 Atherosclerotic heart disease of native coronary artery without angina pectoris; R06.02 Shortness of breath
CPT/HCPCS: 36415; 80053; 80061; 83880; 85025

== ENCOUNTER → 2025-04-17 | Outpatient (CLI) | payer MEDICARE, OTHER, SELFPAY ==
[2025-04-17 16:44] LABS: Anion Gap 14 (5-15); BUN 24 mg/dL (4-19); BUN/Creat Ratio 16.3 RATIO (10-20); Calcium,Total 7.1 mg/dL (7.6-11.0); Carbon Dioxide 22.9 mmol/L (21.0-32.0); Chloride 104 mmol/L (98-108); Glucose 128 mg/dL (70-99); Potassium 4.2 mmol/L (3.3-5.1)
== END | disposition home or self-care (01) ==
LOC: LAB 15:32
PROVIDERS: PCP Family Medicine; Referring Provider Student in an Organized Health Care Education/Training Program; Visit Provider Student in an Organized Health Care Education/Training Program
DX: I10 Essential (primary) hypertension (principal); I42.8 Other cardiomyopathies
CPT/HCPCS: 36415; 80048

== ENCOUNTER → 2025-04-21 | Outpatient (CLI) | payer MEDICARE, OTHER, SELFPAY ==
--- NOTE | 2025-04-21 12:41 | ECHOCS_ITS ---
Reason For Study Reason For Study: LE EDEMA Procedure This was a 2D Doppler, Color Flow transthoracic echocardiogram. The study was technically difficult. Contrast injection was performed. Exam performed in department. Left Ventricle Normal LV size. The left ventricular ejection fraction is 65 %. No regional wall motion abnormalities noted. Right Ventricle Normal RV size. Normal systolic function. Atria The left atrium is mildly enlarged. Normal right atrium. Mitral Valve Normal mitral valve. Tricuspid Valve Normal tricuspid valve. Aortic Valve Trisinus/trileaflet aortic valve. Pulmonic Valve Normal pulmonic valve. Great Vessels Normal aortic root. The pulmonary artery is normal size. Inferior vena cava collapse with respiration. Pericardium/Pleural No pericardial effusion. Medication 22 gauge I.V. with prn adaptor inserted into right arm. Diluted definity 1ml given slow IV push to enhance endocardial definition. MMode/2D Measurements & Calculations LVIDd: 4.1 cm IVSd: 1.5 cm LAV(MOD- bp): 66.7 ml LVIDs: 2.1 cm LVPWd: 1.1 cm FS: 47.6 % LAV(MOD- bp) Indexed: 32.3 ml/m2 LAV(MOD- sp2): 48.5 ml LAV(MOD- sp4): 71.9 ml SV(MOD-sp4): 62.3 ml SV(sp4- el): 64.8 ml LVAd ap4: 32.3 cm2 LVLd ap4: 8.8 cm SI(MOD-sp4): 30.2 ml/m2 EDV(MOD-sp4): 96.8 ml EDV(sp4-el): 100.9 ml LVAs ap4: 17.6 cm2 LVLs ap4: 7.3 cm ESV(MOD-sp4): 34.5 ml ESV(sp4-el): 36.1 ml EF(MOD-sp4): 64.3 % EF(sp4-el): 64.2 % LA dimension(2D): 3.9 cm LA A4 area: 22.2 cm2 RA A4 area: 10.1 cm2 Time Measurements MV dec time: 0.18 sec Doppler Measurements & Calculations MV E max jose: 113.8 cm/sec Lat Peak E' Jose: 9.9 cm/sec Med Peak E' Jose: 9.1 cm/sec MV A max jose: 102.6 cm/sec E/E' lat: 11.5 E/E' med: 12.5 MV E/A: 1.1 MV V2 max: 108.1 cm/sec MV dec slope: 648.2 cm/sec2 Ao V2 max: 211.1 cm/sec MV max P.7 mmHg Ao max P.0 mmHg MV V2 mean: 78.2 cm/sec Ao V2 mean: 152.7 cm/sec MV mean P.7 mmHg Ao mean P.6 mmHg MV V2 VTI: 33.3 cm Ao V2 VTI: 56.6 cm AV (velocity ratio): 0.49 LV V1 max: 103.6 cm/sec PA V2 max: 125.4 cm/sec LV V1 max P.3 mmHg PA V2 mean: 89.4 cm/sec LV V1 mean P.7 mmHg LV V1 mean: 79.7 cm/sec LV V1 VTI: 27.6 cm ECHO/Echo Complete W/ Contrast Interpretation Summary Normal LV size. The left ventricular ejection fraction is 65 %. The left atrium is mildly enlarged. Contrast injection was performed. Ordering Physician: Jose Kam Referring Physician: Jose Kam Performed By: Toshia Hercules RCS
--- OUTSIDE RECORDS SUMMARY | 2025-04-21 13:01 | XMS RPT_ITS | CCD ---
Author Organization [facility] Care Team Providers Care Air Marshal Name Role Phone Dr. Justin Bolden Primary Care Provider Dr. Justin Bolden Referring Provider Janneth ACUÑA, PA Amber Cano Attending Provider Dr. Justin Bolden Primary Care Provider Dr. Harjit Ivory Emergency Provider Dr. Jennie Salgado Admit Provider Dr. Jennie Salgado Attending Provider Dr. Jennie Salgado Other Provider Dr. Jorge Duarte Attending Provider Dr. Kamaljit Trevizo Attending Provider Dr. Farhad Garza Attending Provider Dr. Farhad Garza Other Provider Dr. Blaise العلي Other Provider Dr. Chirag Rodriguez Other Provider Dr. Bryce Razo Attending Provider Dr. Bryce Razo Other Provider Dr. Donna Brunson Other Provider Unavailable Dr. Tramaine Ordaz Other Provider Dr. Kurt Root Other Provider Unavailab Daley TRANSITIONAL CARE NURSE, TRANSITIONAL CARE NURSE-C Kena Other Provider Dr. Blaise العلي Attending Provider Dr. Justin Bolden Primary Care Provider Dr. Harjit Ivory Emergency Provider Dr. Jennie Salgado Admit Provider Dr. Jennie Salgado Attending Provider Dr. Jennie Salgado Other Provider Dr. Jorge Duarte Attending Provider Dr. Jennie Salgado Referring Provider Dr. Kamaljit Trevizo Attending Provider Dr. Kamaljit Trevizo Referring Provider Dr. Farhad Garza Attending Provider Dr. Farhad Garza Other Provider Dr. Blaise العلي Referring Provider Dr. Blaise العلي Other Provider Dr. Chirag Rodriguez Other Provider Dr. Bryce Razo Attending Provider Dr. Bryce Razo Other Provider Dr. Donna Brunson Other Provider Unavailable Dr. Tramaine Ordaz Other Provider Dr. Kurt Root Other Provider Unavailab le Gail TRANSITIONAL CARE NURSE, TRANSITIONAL CARE NURSE-C Kena Other Provider Dr. Blaise لاعلي Attending Provider Dr. Justin Bolden Referring Provider Gail TRANSITIONAL CARE NURSE, TRANSITIONAL CARE NURSE-C Kena Attending Provider Gail TRANSITIONAL CARE NURSE, TRANSITIONAL CARE NURSE-C Kena Referring Provider Dr. Chirag Rodriguez Attending Provider Dr. Justin Bolden Primary Care Provider Gail TRANSITIONAL CARE NURSE, TRANSITIONAL CARE NURSE-C Kena Referring Provider Gail TRANSITIONAL CARE NURSE, TRANSITIONAL CARE NURSE-C Kena Other Provider Dr. Justin Bolden Referring Provider Lexa TRANSITIONAL CARE NURSE, TRANSITIONAL CARE NURSE-C Acacia Attending Provider Gail TRANSITIONAL CARE NURSE, TRANSITIONAL CARE NURSE-C Kena Attending Provider Dr. Justin Bolden Primary Care Provider Dr. Justin Bolden Referring Provider Lexa TRANSITIONAL CARE NURSE, TRANSITIONAL CARE NURSE-C Acacia Attending Provider Gail TRANSITIONAL CARE NURSE, TRANSITIONAL CARE NURSE-C Kena Attending Provider Dr. Aquilino Sheikh Emergency Provider Dr. Chantelle Chavarria Admit Provider Dr. Chantelle Chavarria Other Provider Dr. Penny Redd Attending Provider Dr. Penny Redd Other Provider Dr. Justin Bolden MD Primary Care Provider Dr. Justin Bolden MD Attending Provider Dr. Justin Bolden MD Referring Provider Dr. Jackson Negrete DO Referring Provider Dr. Jackson Negrete DO Emergency Provider Dr. Chantelle Chavarria MD Admit Provider Dr. Chantelle Chavarria MD Other Provider Dr. Blaise العلي DO Attending Provider Dr. Blaise العلي DO Other Provider Dr. Jadon Solano DO Attending Provider Kiley TRANSITIONAL CARE NURSE-CSg Attending Provider Gail MICHAELS-CKena Attending Provider Gail MICHAELS-CKena Referring Provider Dr. Justin Bolden MD Primary Care Physician Dr. Justin Bolden MD Referring Provider Jose Boles Attending Physician Demiter PA, Jose Referring Provider Kena Velez Attending Physician Kiley TRANSITIONAL CARE NURSE, Sg Contreras Attending Unavailable Bolden, Justin Referring Unavailable Bolden, Justin Primary Care Unavailable Bolden, Justin Attending Unavailable Bolden, Justin Referring Unavailable Bolden, Justin Primary Care Unavailable Bolden, Justin Primary Care Unavailable Gail TRANSITIONAL CARE NURSE, Kena Attending Unavailable Gail TRANSITIONAL CARE NURSE, Kena Referring Unavailable Bolden, Justin Primary Care Unavailable Gail TRANSITIONAL CARE NURSE, Kena Attending Unavailable Bolden, Justin Referring Unavailable Bolden, Justin Primary Care Unavailable Gail TRANSITIONAL CARE NURSE, Kena Attending Unavailable Bolden, Justin Referring Unavailable Bolden, Justin Primary Care Unavailable Demiter, Jose Attending Unavailable Bolden, Justin Referring Unavailable Bolden, Justin Primary Care Unavailable Demiter, Jose Attending Unavailable Demiter, Jose Referring Unavailable Bolden, Justin Primary Care Unavailable Bolden, Justin Attending Unavailable Bolden, Justin Referring Unavailable White, Chantelle L Admitting Unavailable White, Chantelle L Consulting Unavailable Caden, Jackson Referring Unavailable Blaise العلي Attending Unavailable Bolden, Justin Primary Care Unavailable Blaise العلي Consulting Unavailable Jadon Solano Attending Unavailable Bolden, Justin Primary Care Unavailable White, Chantelle L Consulting Unavailable White, Chantelle L Admitting Unavailable Caden, Jackson Referring Unavailable Tereletsky, Blaise Attending Unavailable Bolden, Justin Primary Care Unavailable Demiter, Jose Attending Unavailable Demiter, Jose Referring Unavailable Bolden, Justin Primary Care Unavailable Demiter, Jose Attending Unavailable Demiter, Jose Referring Unavailable White, Chantelle L Attending Unavailable Bolden, Justin Primary Care Unavailable Kiley TRANSITIONAL CARE NURSE, Sg Contreras Attending Unavailable Bolden, Justin Referring Unavailable Allergies Allergy Classification Reported Allergen(s) Allergy Type Date of Onset Reaction(s) Facility (14 sources) Meperidine Drug Allergy 2 Unknown [facility] (14 sources) Penicillins Allergy to substance 2 Rash [facility] (14 sources) Triiodobenzoic Acids Allergy to substance 2 Other [facility] (1 source) Meperidine Drug Allergy 5 [facility] (1 source) Penicillins Drug allergy (disorder) 5 [facility] (1 source) Iodinated Contrast Media Drug allergy (disorder) 5 [facility] Medications Current Medications Medication Drug Class(es) Dates Sig (Normalized) Sig (Original) [id number] 200 actuat albuterol 0.09 mg/actuat metered dose inhaler (15 sources) beta2-Adrenergic Agonist Start: 04-03-2025 Albuterol Sulfate 90 mcg/actuation HFA aerosol inhaler Active 2 NMA INHALATION Q4H as needed for SHORTNESS OF BREATH/WHEEZING 8.5 5 April 03, 2025 11:08am Complies with drug therapy Start: 04-03-2025 Albuterol Sulf ate 90 mcg/actuation HFA aerosol inhaler Active 2 NMA INHALATION Q4H as needed for SHORTNESS OF BREATH/WHEEZING 8.5 5 April 03, 2025 11:08am Complies with drug therapy Start: 10-02-2016 End: 04-03-2025 Albuterol Sulfate 1 PUFF inh aler Discontinued 2 NMA INHALATION Q4H as needed for SHORTNESS OF BREATH/WHEEZING October 02, 2016 12:00am April 03, 2025 11:09am Start: 10-02-2016 take 1 puff(s) by in halation every four hours Albuterol Sulfate Active 2 PUFF INHALATION Q4H October 01, 2016 11:00pm Start: 10-02-2016 take 1 puff(s) by in halation every four hours Albuterol Sulfate Active 2 PUFF INHALATION Q4H October 02, 2016 12:00am Start: 10-02-2016 take 1 puff(s) by in halation every four hours as needed Albuterol Sulfate Active 2 PUFF INHALATION EVERY 4 HOURS NEEDED October 02, 2016 12:00am 120 actuat albuterol 0.1 mg/actuat / ipratropium bromide 0.02 mg/actuat inhalation spray (20 sources) Anticholinergic, beta2-Adrenergic Agonist Start: 03-08-2024 take 20-100 ug by inhalation twice daily Ipratropium-Albuterol (Combivent Respimat) 20-100 mcg/actuation mist Active 1 NMA INHALATION TWICE A DAY March 08, 2024 12:00am Complies with drug therapy Start: 09-03-2023 End: 03-08-2024 take 1 mL by inhalation every six hours Ipratropium-Albuterol 0.5 mg-3 mg(2.5 mg base)/3 mL solution for nebulization Discontinued 3 mL INHALATION EVERY 6 HOURS 180 September 03, 2023 1:00am March 08, 2024 10:45am Chronic obstructive pulmonary disease Chronic obstructive pulmonary disease, unspecified breathing Start: 09-03-2023 take 1 mL by inhalat ion every six hours Ipratropium-Albuterol Active 3 ML INHALATION EVERY 6 HOURS 180 September 03, 2023 1:00am Start: 03-25-2023 End: 09-03-2023 take 20-100 ug by inhalation four times daily Ipratropium-Albuterol (Combivent Respimat) 20-100 mcg/actuation mist Discontinued 1 NMA INHALATION .QID 4 July 22, 2023 1:02pm September 03, 2023 11:30am Start: 03-25-2023 End: 09-03-2023 take 20-100 ug by inhalation four times daily Ipratropium-Albuterol (Combivent Respimat) 20-100 mcg/actuation mist Discontinued 1 PUFF INHALATION .QID 4 July 22, 2023 1:02pm September 03, 2023 11:30am Albuterol Sulfate 1 PUFF inhaler (2 sources) Start: 10-02-2016 Albuterol Sulfate 1 PUFF inhaler Active 2 NMA INHALATION Q4H as needed for SHORTNESS OF BREATH/WHEEZING October 02, 2016 12:00am amLODIPine 5 mg oral tablet (9 sources) Dihydropyridine Calcium Channel Aquilino Start: 03-28-2025 End: 04-03-2025 take 1 tablet by mouth once daily Amlodipine 5 mg tablet Discontinued 5 mg PO DAILY 30 March 28, 2025 2:37pm April 03, 2025 5:07pm blood pressure Start: 10-14-2023 End: 03-28-2025 take 1 tablet by mouth once daily Amlodipine 10 mg Tablet Discontinued 10 mg PO DAILY 30 October 14, 2023 12:00am March 28, 2025 2:39pm blood pressure apixaban 5 mg oral tablet (5 sources) Factor Xa Inhibitor Start: 03-29-2024 take 1 tablet by mouth twice daily Apixaban (Eliquis) 5 mg Tablet Active 5 mg PO TWICE A DAY 60 30 0 March 29, 2024 12:00am afib Complies with drug therapy aspirin 81 mg delayed release oral tablet (14 sources) Platelet Aggregation Inhibitor, Nonsteroidal Anti-inflammatory Drug Start: 10-02-2016 take 1 tablet by mouth once daily Aspirin 81 MG tablet Active 81 mg PO DAILY October 02, 2016 12:00am HEART HEALTH Complies with drug therapy 24 hr buPROPion hydrochloride 300 mg extended release oral tablet (6 sources) Aminoketone Start: 10-12-2023 take 1 tablet by mouth once daily Bupropion Hcl 300 mg tablet extended release 24 hr Active 300 mg PO DAILY October 12, 2023 12:00am mental health Complies with drug therapy carvedilol 25 mg oral tablet (20 sources) alpha-Adrenergic Aquilino, beta-Adrenergic Aquilino Start: 10-12-2023 take 1 tablet by mouth every twelve hours Carvedilol 25 mg tablet Active 25 mg PO Q12H October 12, 2023 12:00am HEART Complies with drug therapy Start: 10-02-2016 End: 10-12-2023 take 1 tablet by mouth twice daily Carvedilol 25 mg tablet Discontinued 25 mg PO TWICE A DAY September 03, 2020 11:26am October 12, 2023 6:11am HEART cholecalciferol 0.025 mg oral capsule (20 sources) Vitamin D Start: 09-26-2024 take 1 capsule by mouth once daily Cholecalciferol (Vitamin D3) 25 mcg (1,000 unit) capsule Active 3000 U PO DAILY September 26, 2024 11:37am vitamin Complies with drug therapy Start: 03-08-2024 End: 09-26-2024 take 1 capsule by mouth once daily Cholecalciferol (Vitamin D3) 25 mcg (1,000 unit) capsule Discontinued 25 ug PO DAILY March 08, 2024 12:00am September 26, 2024 11:39am vitamin Start: 11-24-2017 End: 03-08-2024 take 1 capsule by mouth once daily Cholecalciferol (Vitamin D3) 2,000 unit capsule Discontinued 2000 U PO DAILY November 24, 2017 12:00am March 08, 2024 10:46am SUPPLEMENT Ayimdgpizbs-Fxgvyetfg-Jdbegm er (8 sources) Start: 10-11-2024 Nfhjqepnesn-Qtksmbplq-Tzvhhg er (Trelegy Ellipta) 200-62.5-25 mcg blister with device Active 1 NMA INHALATION DAILY 60 6 October 11, 2024 9:52am breathing Complies with drug therapy Start: 03-08-2024 End: 10-11-2024 Liimzabvkmb-Gudmyosyv-Ljgekq er (Trelegy Ellipta) 200-62.5-25 mcg blister with device Discontinued 1 NMA INHALATION DAILY 60 March 08, 2024 12:00am October 11, 2024 9:52am breathing Start: 03-08-2024 Fluticasone-Um eclidin-Vilanter (Trelegy Ellipta) 200-62.5-25 mcg blister with device Active 1 NMA INHALATION DAILY 60 March 08, 2024 12:00am furosemide 40 mg oral tablet (20 sources) Loop Diuretic Start: 04-03-2025 take 1 tablet by liya th once daily in the morning Start: 04-03-2025 take 1 tablet by liya th once daily in the morning Start: 03-29-2024 End: 09-26-2024 take 1 tablet by mouth once daily Furosemide 40 mg tablet Discontinued 40 mg PO DAILY 7 March 29, 2024 12:00am September 26, 2024 11:39am diuretic Start: 03-25-2023 End: 08-28-2023 take 1 tablet by mouth once daily Furosemide (Lasix) 40 mg tablet Discontinued 40 mg PO DAILY 30 March 25, 2023 12:00am August 28, 2023 3:26pm imipramine hydrochloride 25 mg oral tablet (14 sources) Tricyclic Antidepressant Start: 10-02-2016 take 25-50 mg by mouth at bedtime Imipramine Hcl 25 MG tablet Active 25 - 50 mg PO AT BEDTIME October 02, 2016 12:00am BLADDER CONTROL Complies with drug therapy Start: 10-02-2016 take 25-50 mg by liya th at bedtime Imipramine Hcl Active 25 - 50 MG PO AT BEDTIME October 02, 2016 12:00am lisinopril 40 mg oral tablet (20 sources) Angiotensin Converting Enzyme Inhibitor Start: 09-26-2024 take 1 tablet by mouth once daily Lisinopril 40 mg tablet Active 40 mg PO daily September 26, 2024 11:36am blood pressure Complies with drug therapy Start: 08-03-2024 End: 09-26-2024 take 1 tablet by mouth twice daily Lisinopril 40 mg tablet Discontinued 40 mg PO TWICE A DAY 180 3 August 03, 2024 2:58pm September 26, 2024 11:39am blood pressure Start: 10-12-2023 End: 08-03-2024 take 1 tablet by mouth once daily Lisinopril 40 mg tablet Discontinued 40 mg PO DAILY October 12, 2023 12:00am August 03, 2024 2:58pm blood pressure Start: 08-31-2023 End: 10-12-2023 take 1 tablet by mouth twice daily Lisinopril 40 mg tablet Discontinued 40 mg PO TWICE A DAY 180 3 August 31, 2023 1:00am October 12, 2023 6:38am Start: 08-28-2023 End: 08-31-2023 take 2 tablets by mouth twice daily Lisinopril 20 mg tablet Discontinued 40 mg PO TWICE A DAY August 28, 2023 3:44pm August 31, 2023 1:49pm BLOOD PRESSURE Start: 08-28-2023 End: 08-31-2023 take 40 mg by mouth twice daily Lisinopril Discontinue d 40 MG PO TWICE A DAY August 28, 2023 3:44pm August 31, 2023 1:49pm Start: 10-02-2016 End: 08-28-2023 take 1 tablet by mouth twice daily Lisinopril 20 MG tablet Discontinued 20 mg PO TWICE A DAY October 02, 2016 12:00am August 28, 2023 3:45pm BLOOD PRESSURE metFORMIN hydrochloride 1000 mg oral tablet (11 sources) Biguanide Start: 03-08-2024 take 1 tablet by mouth twice daily Metformin 1,000 mg tablet Active 1000 mg PO TWICE A DAY March 08, 2024 12:00am diabetes Complies with drug therapy Start: 10-14-2023 End: 03-08-2024 take 1 tablet by mouth twice daily at mealtime Metformin 500 mg Tablet Discontinued 500 mg PO TWICE DAILY WITH MEALS 60 1 October 14, 2023 12:00am March 08, 2024 10:44am Nebulizer machine (15 sources) Start: 09-15-2023 Nebulizer mach ine Active 0 .ROUTE .MEDSUPPLY 1 0 September 15, 2023 3:04pm Chronic obstructive pulmonary disease Chronic obstructive pulmonary disease, unspecified As directed Start: 09-15-2023 Nebulizer mach ine Active 0 .ROUTE .MEDSUPPLY 1 September 15, 2023 3:04pm As directed Start: 09-03-2023 End: 09-15-2023 Nebulizer machine Discontinu ed 0 .ROUTE .MEDSUPPLY 1 September 03, 2023 1:00am September 15, 2023 3:04pm Chronic obstructive pulmonary disease Chronic obstructive pulmonary disease, unspecified As directed Start: 09-03-2023 End: 09-15-2023 Nebulizer machine Discontinu ed 0 .ROUTE .MEDSUPPLY 1 September 03, 2023 1:00am September 15, 2023 3:04pm As directed Start: 09-03-2023 Nebulizer mach ine Active 0 .ROUTE .MEDSUPPLY 1 September 03, 2023 12:00am As directed pantoprazole 40 mg delayed release oral tablet (5 sources) Proton Pump Inhibitor Start: 03-29-2024 take 1 tablet by mouth twice daily Pantoprazole 40 mg Tablet,Delayed Release (Dr/Ec) Active 40 mg PO TWICE A DAY 60 30 March 29, 2024 12:00am gerd Complies with drug therapy simvastatin 40 mg oral tablet (14 sources) HMG-CoA Reductase Inhibitor Start: 10-02-2016 take 1 tablet by mouth at bedtime Simvastatin 40 MG tablet Active 40 mg PO AT BEDTIME October 02, 2016 12:00am CHOLESTEROL Complies with drug therapy spironolactone 25 mg oral tablet (3 sources) Aldosterone Antagonist Start: 04-03-2025 take 1 tablet by mouth once daily Start: 04-03-2025 take 1 tablet by mouth once da carlyle Completed/Discontinued Medications Medication Drug Class(es) Dates Sig (Normalized) Sig (Original) cephalexin 500 mg oral capsule (6 sources) Cephalosporin Antibacterial Start: 10-14-2023 End: 11-06-2023 take 1 capsule by mouth twice daily Cephalexin 500 mg capsule Discontinued 500 mg PO TWICE A DAY 10 October 14, 2023 12:00am November 06, 2023 11:26am doxycycline monohydrate 100 mg oral capsule (10 sources) Tetracycline-class Drug Start: 03-29-2024 End: 09-26-2024 take 1 capsule by mouth twice daily Doxycycline Monohydrate 100 mg Capsule Discontinued 100 mg PO TWICE A DAY 7 September 01, 2024 1:00September 26, 2024 11:38am levoFLOXacin 500 mg oral tablet (14 sources) Quinolone Antimicrobial Start: 10-03-2016 End: 10-05-2016 take 1 tablet by mouth once daily Levofloxacin (Levaquin) 500 MG tablet Discontinued 500 mg PO DAILY 3 October 03, 2016 12:00am October 05, 2016 10:44am predniSONE 10 mg oral tablet (17 sources) Start: 03-29-2024 End: 09-01-2024 take 3 tablets by mouth once daily at breakfast, then take 2 tablets by mouth once daily, then take 1 tablet by mouth once daily Prednisone 10 mg tablet Discontinued 40 mg PO WITH BREAKFAST March 29, 2024 12:00am September 01, 2024 12:21pm Take 3 tablets daily for 3 days then 2 tablets daily for 3 days then 1 tablet daily for 3 days Start: 03-25-2023 End: 04-14-2023 take 1 tablet by mouth twice daily, then take 1-0.5 tablets by mouth once daily, then take 1 tablet by mouth once daily Prednisone 20 mg tablet Discontinued 40 mg PO DAILY March 25, 2023 12:00am April 14, 2023 1:40pm 1 twice a day for 3 days, then 1-1/2 daily for 2 days then 1 tablet daily for 2 days and stop Start: 03-25-2023 End: 04-14-2023 take 1 tablet by mouth twice daily, then take 1-0.5 tablets by mouth once daily, then take 1 tablet by mouth once daily Prednisone Discontinued 40 MG PO DAILY March 25, 2023 12:00am April 14, 2023 1:40pm 1 twice a day for 3 days, then 1-1/2 daily for 2 days then 1 tablet daily for 2 days and stop Problems Active Problems Problem Classification Problem Date Documented Da te Episodic/Chronic Cardiac dysrhythmias (12 sources) Atrial fibrillation; Translations: [Unspecified atrial fibrillation] 03-24-2024 Chronic Chronic obstructive pulmonary disease and bronchiectasis (20 sources) Chronic obstructive lung disease; Translations: [Chronic obstructive pulmonary disease, unspecified] 03-23-2023 Chronic Comment on above: FEV1 32% of predicte d Chronic obstructive pulmonary disease and bronchiectasis (14 sources) Bronchitis; Translations: [Bronchitis, not specified as acute or chronic] 06-17-2018 Episodic Conditions associated with dizziness or vertigo (9 sources) Loss of equilibrium; Translations: [Dizziness and giddiness] 10-12-2023 Episodic Conduction disorders (20 sources) Left bundle branch block; Translations: [Left bundle-branch block, unspecified] 11-24-2017 Chronic Coronary atherosclerosis and other heart disease (20 sources) Coronary atherosclerosis; Translations: [Atherosclerotic heart disease of [place] coronary artery without angina pectoris] Onset: 03-28-2025 11-24-2017 Chronic Diabetes mellitus without complication (7 sources) Hyperglycemia; Translations: [Hyperglycemia, unspecified] 10-13-2023 Episodic Diseases of white blood cells (7 sources) Leukocytosis; Translations: [Elevated white blood cell count, unspecified] 10-13-2023 Chronic Disorders of lipid metabolism (20 sources) Hyperlipidemia; Translations: [Hyperlipidemia, unspecified] Onset: 03-28-2025 11-24-2017 Chronic Essential hypertension (20 sources) Essential hypertension; Translations: [Essential (primary) hypertension] Onset: 04-03-2025 06-17-2018 Chronic Malaise and fatigue (9 sources) Asthenia; Translations: [Weakness] 10-12-2023 Episodic Other connective tissue disease (7 sources) Recurrent falls ; Translations: [Repeated falls] 10-12-2023 Episodic Other connective tissue disease (2 sources) Repeated falls; Translations: [History of fall] 10-12-2023 Episodic Other injuries and conditions due to external causes (7 sources) Abrasion and/or friction burn of multiple sites; Translations: [Unspecified multiple injuries, initial encounter] 10-12-2023 Episodic Other injuries and conditions due to external causes (2 sources) Unspecified multiple injuries, initial encounter; Translations: [Abrasion or friction burn of other, multiple, and unspecified sites, without mention of infection] 10-12-2023 Episodic Other lower respiratory disease (16 sources) Hypoxia; Translations: [Hypoxemia] 03-19-2023 Episodic Other lower respiratory disease (11 sources) Hypoxemia; Translations: [Hypoxemia] 03-19-2023 Episodic Other lower respiratory disease (2 sources) Shortness of breath; Translations: [Shortness of breath] Onset: 03-28-2025 Episodic Other nutritional; endocrine; and metabolic disorders (14 sources) Obesity; Translations: [Obesity, unspecified] 04-14-2023 Chronic Other nutritional; endocrine; and metabolic disorders (6 sources) Obesity, unspecified; Translations: [Obesity, unspecified] 04-14-2023 Chronic Other nutritional; endocrine; and metabolic disorders (5 sources) Hypomagnesemia; Translations: [Hypomagnesemia] 03-24-2024 Chronic Other nutritional; endocrine; and metabolic disorders (1 source) Hypocalcemia; Translations: [Hypocalcemia] Onset: 09-20-2024 Chronic Elizabeth-; endo-; and myocarditis; cardiomyopathy (except that caused by tuberculosis or sexually transmitted disease) (20 sources) Cardiomyopathy; Translations: [Other cardiomyopathies] Onset: 03-28-2025 06-06-2021 Chronic Residual codes; unclassified (3 sources) Sleep apnea; Translations: [Sleep apnea, unspecified] 04-14-2023 Chronic Residual codes; unclassified (3 sources) Sleep apnea, unspecified; Translations: [Unspecified sleep apnea] 04-14-2023 Chronic Residual codes; unclassified (14 sources) Harmful pattern of use of nicotine; Translations: [Tobacco use] 11-24-2017 Episodic Residual codes; unclassified (2 sources) Tobacco use; Translations: [Tobacco use disorder] 03-19-2023 Episodic Residual codes; unclassified (6 sources) Edema of lower extremity; Translations: [Localized edema] 03-28-2025 Episodic Residual codes; unclassified (2 sources) Localized edema; Translations: [Localized edema] Onset: 03-28-2025 Episodic Respiratory failure; insufficiency; arrest (adult) (8 sources) Ihgks-ua-faiihyl respiratory failure; Translations: [Acute and chronic respiratory failure with hypoxia] Onset: 09-07-2024 09-09-2024 Chronic Substance-related disorders (9 sources) Cigarette smoker ; Translations: [Nicotine dependence, cigarettes, uncomplicated] Onset: 11-01-2024 03-08-2024 Chronic Comment on above: Quit smoking 2022 Past or Other Problems Problem Classification Problem Date Documented Da te Episodic/Chronic Pneumonia (except that caused by tuberculosis or sexually transmitted disease) (8 sources) Pneumonia; Translations: [Pneumonia, unspecified organism] Onset: 09-07-2024 09-09-2024 Episodic Results Test Name Value Interpretation Reference Range Facility Basic Metabolic Profile (BMP )on 04-17-2025 BUN/CRE 16.3 RATIO Normal 10-20 [facility] Comment on above: Performed By: #### L 500.2500 #### [facility] [address] [place], [address] Calcium [Mass/Vol] 7.1 mg/dL Low 7.6-11.0 [facility] Comment on above: Performed By: #### L 500.2500 #### [facility] [address] [place], [address] Chloride [Moles/Vol] 104 mmol/L Normal 98-108 [facility] Comment on above: Performed By: #### L 500.2500 #### [facility] [address] [place], [address] CO2 [Moles/Vol] 22.9 mmol/L Normal 21.0-32.0 [facility] Comment on above: Performed By: #### L 500.2500 #### [facility] [address] [place], [address] Creatinine [Mass/Vol] 1.50 mg/dL High 0.70-1.20 [facility] Comment on above: Performed By: #### L 500.2500 #### [facility] [address] [place], [address] GAP 14 Normal 5-15 [facility] Comment on above: Performed By: #### L 500.2500 #### [facility] [address] [place], [address] GFR/1.73 sq M.predicted among non-blacks MDRD (S/P/Bld) [Vol rate/Area] 36 mL/min/{1.73_m2} Low >60 [facility] Comment on above: Result Comment: mL/m in/1.73m2 CKD-EPI Creatinine Equation (2020) Performed By: #### L 500.2500 #### [facility] [address] [place], [address] Glucose [Mass/Vol] 128 mg/dL High 70-99 [facility] Comment on above: Performed By: #### L 500.2500 #### [facility] [address] [place], [address] Potassium [Moles/Vol] 4.2 mmol/L Normal 3.3-5.1 [facility] Comment on above: Performed By: #### L 500.2500 #### [facility] [address] [place], [address] Sodium [Moles/Vol] 141 mmol/L Normal 133-145 [facility] Comment on above: Performed By: #### L 500.2500 #### [facility] [address] [place], [address] Urea nitrogen [Mass/Vol] 24 mg/dL High 4-19 [facility] Comment on above: Performed By: #### L 500.2500 #### [facility] [address] [place], [address] Pulmonary Visit Reporton Pulmonary Visit Report [facility] [address] [place], [place] [address] OFFICE VISIT Date of Service: 04/03/25 MR#: [id number] Acct: [id number] Name: SALLY AYALA Rep #: [id number] : 1950 Provider: SHANTA Reynolds Age/Sex: 74/F Location: [facility] Status: Signed Assessment and Plan Assessment and Plan (1) COPD (chronic obstructive pulmonary disease): Status: Chronic Qualifiers: COPD type: unspecified COPD Qualified Code(s): J44.9 - Chronic obstructive pulmonary disease, unspecified Comment: FEV1 32% of predicted Plan: She does not appear to be an exacerbation of COPD today. No need for prednisone or antibiotic. Continue current maintenance medication, on triple therapy with the use of Trelegy. No additional testing at this time. Contact the office for any new or worsening symptoms. An acute visit and typically be arranged within 1-2 days. Follow-up in November. (2) Obesity: Status: Chronic Qualifiers: Obesity type: due to excess calories Obesity classification: adult class 3 (BMI gt;= 40) Serious obesity comorbidity presence: with serious comorbidity Body mass index: BMI 40.0-44.9 Qualified Code(s): E66.01 - Morbid (severe) obesity due to excess calories; Z68.41 - Body mass index [BMI] 40.0-44.9, adult Plan: Complicates exam, plan, care and prognosis. Continue to encourage weight loss. (3) Hypoxia: Status: Chronic Plan: She is using and benefiting from supplemental oxygen. Continue to titrate as needed to maintain saturations 89 to 92%. Intolerant of NIV. (4) Smoking greater than 30 pack years: Status: Chronic Comment: Quit smoking March 2023 Plan: She remains appropriate for repeat LDCT which will be due in October 2024, ordered previously. Follow-up in November to discuss test results. Medications: New albuterol sulfate 90 mcg/actuation 2 puffs inhalation Q4H PRN 8.5 grams 5RF SHORTNESS OF BREATH/WHEEZING Plan Details Additional Comments: This note was generated with [employer] dictation software. It may contain incorrect words, spelling, and punctuation that were not noted in checking the note before signing. Follow Up: 11/03/25 HPI 3 M FU Chief Complaint: Leg swelling HPI Comments Details: This patient presents to the office today for follow-up of her COPD with chronic hypoxic respiratory failure and to discuss test results. She is in a wheelchair and on supplemental oxygen. She has not recently been seen in the ED or urgent care for any respiratory illness. She has not required any antibiotics or prednisone for any breathing problems. She is compliant with use of Trelegy 1 puff daily. She does report rinsing her mouth out after each use. She denies any medication side effect such as sore throat or thrush. She is compliant with supplemental oxygen. She uses 3 L/min continuous. She uses 3 L/min continuous with sleep. If you recall, she quit smoking over 1 year ago, but she smells of smoke. She does have a greater than 58-spal-uoch smoking history. She does have shortness of breath on exertion. She reports a dry cough but denies any sputum production or hemoptysis. She denies any wheezing, chest tightness, chest pain or palpitations. She denies any fever, chills or body aches. She has lower extremity edema. It has progressed over the past few weeks. She has been working with cardiology and recently had one of her medication decreased from 10 mg to 5 mg". She is upset because she is not able to fit in any of her shoes. She was set up with a noninvasive ventilator after the last office visit, however she was not able to tolerate it and returned it AGAINST MEDICAL ADVICE. Intake Vital Signs 11/01/24 08:31 04/03/25 07:57 Height 5 ft 4 in 5 ft 4 in Weight: 243 lb BMI 41.7 BP 133/81 H Blood Pressure Location Lt brachial Position Sitting Respiration 20 H Pulse 67 Pulse Source Monitor Temp 97.4 F L Temperature Source Temporal Artery Pulse Oximetry (%) 98 Oxygen Delivery Method nasal canula Oxygen Flow Rate (L/min) 3 Intake Visit Reasons: 3 M FU Chief Complaint: hosp f/u SOB, hypoxia Engineering Program Analyst Required: No DME Vendor: Dustin Accompanied by: Self Allergies Iodinated Contrast Media (CONTRASTS) Allergy (Verified 04/03/25 10:42) Other meperidine (From Demerol) Allergy (Verified 04/03/25 10:42) Unknown Penicillins (PCN) Allergy (Verified 04/03/25 10:42) Rash Medications ???Medication ???Instructions ???Recorded ???Confirmed ???Type aspirin 81 mg tablet,delayed 81 mg PO DAILY HEART HEALTH 04/03/25 History release imipramine HCl 25 mg tablet 25 - 50 mg PO QHS BLADDER CONTROL 10/02/16 04/03/25 History simvastatin 40 mg tablet 40 mg PO QHS CHOLESTEROL 10/02/16 04/03/25 History Nebulizer machine #1 ea 09/15/2304/03 (more content not included)... Normal [facility] Absolute lymphocyte countOrd ered By: Jose Kam on 03-28-2025 Lymphocytes Auto (Unsp spec) [#/Vol] 1.34 10*3/uL 0.83-4.51 [facility] Absolute neutrophil countOrd ered By: Jose Kam on 03-28-2025 Neutrophils (Bld) [#/Vol] 13.7 10*3/uL High 2.0-7.7 [facility] Anion gap in Serum or Plasma Ordered By: Jose Kam on 03-28-2025 Anion gap [Moles/Vol] 14 mmol/L 5- [facility] Automated lymphocyte count a s percentage of total leukocytesOrdered By: Jose Kam on 03-28-2025 Lymphocytes/100 WBC Auto (Unsp spec) 8.1 % Low - [facility] BUN/creatinine ratioOrdered By: Jose Kam on 03-28-2025 Urea nitrogen/Creatinine [Mass ratio] 16.7 mg/mg 10- [facility] Basophil percentageOrdered B y: Jose Kam on 03-28-2025 Basophils/100 WBC (Bld) 0.3 % 0-1 [facility] Bilirubin, totalOrdered By: Jose Kam on 03-28-2025 Bilirubin [Mass/Vol] 0.65 mg/dL 0.00-1.30 [facility] CBC W/Diff, Automatedon 03-07 Absolute Lymph 1.34 X10 3/uL Normal 0.83-4.51 [facility] Comment on above: Performed By: #### L 500.2500 #### [facility] [address] [place], [address] Absolute Neut 13.7 X10 3/uL High 2.0-7.7 [facility] Comment on above: Performed By: #### L 500.2500 #### [facility] [address] [place], [address] Basophils/100 WBC (Bld) 0.3 % Normal 0-1 [facility] Comment on above: Performed By: #### L 500.2500 #### [facility] [address] [facility] [place], [address] Eosinophils/100 WBC (Bld) 0.4 % Normal 0-5 [facility] Comment on above: Performed By: #### L 500.2500 #### [facility] [address] [place], [address] Erythrocyte distribution width (RBC) [Ratio] 13.2 % Normal 11.6-14.6 [facility] Comment on above: Performed By: #### L 500.2500 #### [facility] [address] [place], [address] Hematocrit (Bld) [Volume fraction] 33.7 % Low 37-47 [facility] Comment on above: Performed By: #### L 500.2500 #### [facility] [address] [place], [address] Hemoglobin (Bld) [Mass/Vol] 11.2 g/dL Low 12.0-15.0 [facility] Comment on above: Performed By: #### L 500.2500 #### [facility] [address] [place], [address] IG% 0.700 Normal 0.0-0.9 [facility] Comment on above: Result Comment: IG% - Immature Granulocytes (promyelocytes, myelocytes and metamyelocytes) > 1% indicates that a LEFT SHIFT is Present. Performed By: #### L 500.2500 #### [facility] [address] [place], [address] Lymphocytes/100 WBC (Bld) 8.1 % Low 19-41 [facility] Comment on above: Performed By: #### L 500.2500 #### [facility] [address] [place], [address] MCH (RBC) [Entitic mass] 32.3 pg High 27.0-32.0 [facility] Comment on above: Performed By: #### L 500.2500 #### [facility] [address] [place], [address] MCHC (RBC) [Mass/Vol] 33.2 g/dL Normal 32-36 [facility] Comment on above: Performed By: #### L 500.2500 #### [facility] [address] [place], [address] MCV (RBC) [Entitic vol] 97.1 fL Normal 81-99 [facility] Comment on above: Performed By: #### L 500.2500 #### [facility] [address] [place], [address] Monocytes/100 WBC (Bld) 7.8 % Normal 0-10 [facility] Comment on above: Performed By: #### L 500.2500 #### [facility] [address] [place], [address] Neutrophils/100 WBC (Bld) 82.7 % High 47-70 [facility] Comment on above: Performed By: #### L 500.2500 #### [facility] [place], [address] Nucleated RBC (Bld) [#/Vol] 0 10*3/uL Normal 0-5 [facility] Comment on above: Performed By: #### L 500.2500 #### [facility] [address] [place], [address] Platelet mean volume (Bld) [Entitic vol] 12.0 fL Normal 6.2-12.0 [facility] Comment on above: Performed By: #### L 500.2500 #### [facility] [address] [place], [address] Platelets (Bld) [#/Vol] 214 10*3/uL Normal 150-450 [facility] Comment on above: Performed By: #### L 500.2500 #### [facility] [address] [place], [address] RBC (Bld) [#/Vol] 3.47 10*6/uL Low 4.2-5.4 [facility] Comment on above: Performed By: #### L 500.2500 #### [facility] [address] [place], [address] RDW SD 47.5 fl High 35.1-43.9 [facility] Comment on above: Performed By: #### L 500.2500 #### [facility] [address] [place], [place], [address] WBC (Bld) [#/Vol] 16.5 10*3/uL High 4.4-11.0 [facility] Comment on above: Performed By: #### L 500.2500 #### [facility] [address] [place], [place], [address] Calculated very low density lipoprotein (VLDL) cholesterol measurementOrdered By: Jose Kam on 03-28-2025 Calculated very low density lipoprotein (VLDL) cholesterol measurement 18 mg/dL 5-40 [facility] Carbon dioxide, total [Moles /volume] in Central venous bloodOrdered By: Jose Kam on 03-28-2025 CO2 [Moles/Vol] 26.2 mmol/L 21.0-32.0 [facility] Cardiology Visit Reporton Cardiology Visit Report [facility] [address] [place], [place] [address] OFFICE VISIT Date of Service: 03/28/25 MR#: [id number] Acct: [id number] Name: SALLY AYALA Rep #: [id number] : 1950 Provider: DOMENICO Prado Age/Sex: 74/F Location: [facility] Status: Signed HPI HPI History of Present Illness Details: Sally Ayala is a 74-year-old female who presents to office today for follow-up for monitoring her cardiovascular health. She has a history of nonischemic cardiomyopathy, coronary artery disease involving single-vessel diagonal branch, left bundle branch block, hypertension, hyperlipidemia and tobacco abuse. Upon presentation today, patient reports doing fairly well. She reports significant bilateral LE edema over the past few months in which she has had to purchase new shoes and have her help put her shoes on. She reports fatigue described as having no get up and go that has been more noticed over the last 6 months. She reports SOB with little exertion. She has been on O2 support for about a year now. Further ROS below. 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 Is patient in pain?: No Allergies Iodinated Contrast Media (CONTRASTS) Allergy (Verified 03/28/25 13:59) Other meperidine (From Demerol) Allergy (Verified 03/28/25 13:59) Unknown Penicillins (PCN) Allergy (Verified 03/28/25 13:59) Rash Medications ???Medication ???Instructions ???Recorded ???Confirmed ???Type albuterol sulfate 90 mcg/actuation 2 puff inhalation Q4H PRN 03/28/25 History aerosol inhaler SHORTNESS OF BREATH/WHEEZING aspirin 81 mg tablet,delayed 81 mg PO DAILY HEART HEALTH 03/28/25 History release imipramine HCl 25 mg tablet 25 - 50 mg PO QHS BLADDER CONTROL 10/02/16 03/28/25 History simvastatin 40 mg tablet 40 mg PO QHS CHOLESTEROL 10/02/16 03/28/25 History Nebulizer machine #1 ea 09/15/23 11/01/24 Rx bupropion HCl 300 mg 24 hr tablet, 300 mg PO DAILY mental health 03/28/25 History extended release carvedilol 25 mg tablet 25 mg PO Q12H HEART 10/12/2303/28 History ipratropium 20 mcg-albuterol 100 1 puff inhalation BID 03/08/24 History mcg/actuation mist for inhalation (Combivent Respimat) metformin 1,000 mg tablet 1,000 mg PO BID diabetes 03/08/24 03/28/25 History apixaban 5 mg tablet (Eliquis) 5 mg PO BID afib 30 days #60 tabs 03/29/24 03/28/25 Rx pantoprazole 40 mg tablet,delayed 40 mg PO BID gerd 30 days #60 tab s 03/29/24 03/28/25 Rx release cholecalciferol (vitamin D3) 25 3,000 unit PO DAILY vitamin 03/28/25 History mcg (1,000 unit) capsule lisinopril 40 mg tablet 40 mg PO QDAY blood pressure 09/2603/28/25 History fluticasone fur. 200 mcg-umeclid 1 inh inhalation DAILY breathing 0 10/11/24 03/28/25 Rx 62.5 mcg-vilant 25 mcg #60 ea inhalat.powder (Trelegy Ellipta) amlodipine 5 mg tablet 5 mg PO DAILY blood pressure #30 0 03/28/25 03/28/25 Rx tabs Ejection fraction %: 65 Have you fallen in the past year?: Yes PFSH Medical History Acute and chronic respiratory failure with hypoxia Pneumonia Diabetes mellitus, type 2 Chronic hypoxic respiratory failure, on home oxygen therapy Morbid obesity CKD (chronic kidney disease), stage III Sleep apnea Nonischemic cardiomyopathy Essential (primary) hypertension LBBB (left bundle branch block) COPD (chronic obstructive pulmonary disease) Hyperlipidemia Nicotine abuse Atherosclerotic heart disease of [place] coronary artery without angina pectoris Bronchitis Surgical History History of colonoscopy with polypectomy History of total hip arthroplasty History of cholecystectomy History of cataract surgery History of appendectomy History of left heart catheterization (09/03/11) Family History Mother Hypertension Diabetes Father Cancer Social History household members: none Smoking Status: Former smoker quit date: 04/04/23 how long ago did patient quit smokin alcohol intake: never substance use type: does not use caffeine: Yes Type: carbonated beverages Number of servings: 1 ROS Const Const: Positive for fatigue; Negative for weakness, headache(s) (more content not included)... Normal [facility] Chloride assayOrdered By: Hiram Kam on 03-28-2025 Chloride [Moles/Vol] 101 mmol/L 98-108 [facility] Comprehensive Metabolic Prof ilon 03-28-2025 Albumin [Mass/Vol] 3.7 g/dL Normal 3.4-4.8 [facility] Comment on above: Performed By: #### L 500.2500 #### [facility] [address] [place], [address] Albumin/Globulin [Mass ratio] 1.1 {ratio} Normal 0.9-2.4 [facility] Comment on above: Performed By: #### L 500.2500 #### [facility] [address] [place], [address] ALK PHOS 96 U/L Normal 35-104 [facility] Comment on above: Performed By: #### L 500.2500 #### [facility] [address] [place], [address] ALT [Catalytic activity/Vol] 33 U/L Normal <=34 [facility] Comment on above: Performed By: #### L 500.2500 #### [facility] [address] [place], [address] AST [Catalytic activity/Vol] 33 U/L High <=31 [facility] Comment on above: Performed By: #### L 500.2500 #### [facility] [address] [place], [address] Bilirubin [Mass/Vol] 0.65 mg/dL Normal 0.00-1.30 [facility] Comment on above: Performed By: #### L 500.2500 #### [facility] [address] [place], [address] BUN/CRE 16.7 RATIO Normal 10-20 [facility] Comment on above: Performed By: #### L 500.2500 #### [facility] [address] [place], [address] Calcium [Mass/Vol] 7.4 mg/dL Low 7.6-11.0 [facility] Comment on above: Performed By: #### L 500.2500 #### [facility] [address] [place], [address] Chloride [Moles/Vol] 101 mmol/L Normal 98-108 [facility] Comment on above: Performed By: #### L 500.2500 #### [facility] [address] [place], [address] CO2 [Moles/Vol] 26.2 mmol/L Normal 21.0-32.0 [facility] Comment on above: Performed By: #### L 500.2500 #### [facility] [address] [place], [address] Creatinine [Mass/Vol] 1.12 mg/dL Normal 0.70-1.20 [facility] Comment on above: Performed By: #### L 500.2500 #### [facility] [address] [place], [address] GAP 14 Normal 5-15 [facility] Comment on above: Performed By: #### L 500.2500 #### [facility] [address] [place], [address] GFR/1.73 sq M.predicted among non-blacks MDRD (S/P/Bld) [Vol rate/Area] 52 mL/min/{1.73_m2} Low >60 [facility] Comment on above: Result Comment: mL/m in/1.73m2 CKD-EPI Creatinine Equation (2020) Performed By: #### L 500.2500 #### [facility] [address] [place], [address] Globulin (S) [Mass/Vol] 3.2 g/dL Normal 2.2-4.2 [facility] Comment on above: Performed By: #### L 500.2500 #### [facility] [address] [place], [address] Glucose [Mass/Vol] 151 mg/dL High 70-99 [facility] Comment on above: Performed By: #### L 500.2500 #### [facility] [address] [place], [address] Potassium [Moles/Vol] 3.5 mmol/L Normal 3.3-5.1 [facility] Comment on above: Performed By: #### L 500.2500 #### [facility] [address] [place], [address] Sodium [Moles/Vol] 141 mmol/L Normal 133-145 [facility] Comment on above: Performed By: #### L 500.2500 #### [facility] [address] [place], [address] T PROT 6.9 g/dL Normal 5.9-8.4 [facility] Comment on above: Performed By: #### L 500.2500 #### [facility] [address] [place], [address] Urea nitrogen [Mass/Vol] 19 mg/dL Normal 4-19 [facility] Comment on above: Performed By: #### L 500.2500 #### [facility] [address] [place], [address] Eosinophil percentageOrdered By: Jose Kam on 03-28-2025 Eosinophils/100 WBC (Bld) 0.4 % 0-5 [facility] Erythrocyte distribution wid th ratioOrdered By: Jose Kam on 03-28-2025 Erythrocyte distribution width (RBC) [Ratio] 13.2 % 11.6-14.6 [facility] Erythrocyte distribution wid th standard deviationOrdered By: Jose Kam on 03-28-2025 Erythrocyte distribution width (RBC) [Ratio] 47.5 fl High 35.1-43.9 [facility] Glomerular filtration rate ( GFR) estimation/1.73 sq m using serum, plasma, or whole bOrdered By: Jose Kam on 03-28-2025 GFR/1.73 sq M.predicted among non-blacks MDRD (S/P/Bld) [Vol rate/Area] 52 mL/min/{1.73_m2} Low >60 [facility] Comment on above: mL/min/1.73m2 CKD-EP I Creatinine Equation (2020) Hematocrit Auto (Bld) [Volum e fraction]Ordered By: Jose Kam on 03-28-2025 Hematocrit (Bld) [Volume fraction] 33.7 % Low 37-47 [facility] Hemoglobin measurementOrdere d By: Jose Kam on 03-28-2025 Hemoglobin (Bld) [Mass/Vol] 11.2 g/dL Low 12.0-15.0 [facility] Immature granulocytes/100 WB C Auto (Bld)Ordered By: Jose aKm on 03-28-2025 Immature granulocytes/100 WBC (Bld) 0.700 % 0.0-0.9 [facility] Comment on above: IG% - Immature Granu locytes (promyelocytes, myelocytes and metamyelocytes) > 1% indicates that a LEFT SHIFT is Present. LDL calc ser/plasOrdered By: Jose Kam on 03-28-2025 Cholesterol in LDL [Mass/Vol] 56 mg/dL [facility] Comment on above: Nmelvpdmom=759-348 m g/dL & Higher Pavm=646 mg/dL or greaterFriedwald Equation for LDL-C Laboratory - Chemistry and C hemistry - challengeOrdered By: Jose Kam on 03-28-2025 AST [Catalytic activity/Vol] 33 U/L High <32 [facility] Lipid Profileon 03-28-2025 CHOL:HDL 2.24 Normal [facility] Comment on above: Performed By: #### L 500.2500 #### [facility] [address] [place], [address] Cholesterol [Mass/Vol] 134 mg/dL Normal <=200 [facility] Comment on above: Result Comment: Chol esterol level, Desirable <200 mg/dL Borderline high cholesterol 200-239 mg/dL High cholesterol >=240 mg/dL Recommendations of the NCEP Adult Treatment Panel for the following risk-cutoff thresholds for the [place] population. Performed By: #### L 500.2500 #### [facility] [address] [place], [address] Cholesterol in HDL [Mass/Vol] 60 mg/dL Normal [facility] Comment on above: Result Comment: [place] onal Cholesterol Education Program (NCEP) guidelines: <40 mg/dL: Low HDL-cholesterol (major risk factor for CHD) >= 60 mg/dL: High HDL-cholesterol (negative risk factor for CHD) HDL-cholesterol is affected by a number of factors, e.g. smoking, exercise, hormones, sex and age. Performed By: #### L 500.2500 #### [facility] [address] [place], [address] Cholesterol in LDL [Mass/Vol] 56 mg/dL Normal [facility] Comment on above: Result Comment: Bord jrkxyc=704-177 mg/dL Higher Tozx=424 mg/dL or greater Friedwald Equation for LDL-C Performed By: #### L 500.2500 #### [facility] [address] [place], [address] Cholesterol in VLDL [Mass/Vol] 18 mg/dL Normal 5-40 [facility] Comment on above: Performed By: #### L 500.2500 #### [facility] [address] [facility] [address] Triglyceride [Mass/Vol] 91 mg/dL Normal [facility] Comment on above: Result Comment: The drugs N-Acetylcysteine and Metamizole may falsely depress this assay. Normal range: <150 mg/dL Borderline High: 150-199 mg/dL High: 200-499 mg/dL Very High: >500 mg/dL Performed By: #### L 500.2500 #### [facility] [address] [place], [address] MCV (mean corpuscular volume ) determinationOrdered By: Jose Kam on 03-28-2025 MCV (RBC) [Entitic vol] 97.1 fL 81-99 [facility] Mean corpuscular hemoglobin (MCH) determinationOrdered By: Jose Kam on 03-28-2025 MCH (RBC) [Entitic mass] 32.3 pg High 27.0-32.0 [facility] Mean corpuscular hemoglobin concentration (MCHC) determinationOrdered By: Jose Kam on 03-28-2025 MCHC (RBC) [Mass/Vol] 33.2 g/dL 32-36 [facility] Mean platelet volume determi nationOrdered By: Jose Kam on 03-28-2025 Platelet mean volume (Bld) [Entitic vol] 12.0 fL 6.2-12.0 [facility] Monocyte percentageOrdered B y: Jose Kam on 03-28-2025 Monocytes/100 WBC (Bld) 7.8 % 0-10 [facility] Natriuretic peptide.B prohor angela N-Terminal [Mass/volume] in Serum or PlasmaOrdered By: Jose Kam on 03-28-2025 Natriuretic peptide.B prohormone N-Terminal [Mass/Vol] 782 pg/mL <900 [facility] Comment on above: Heart Failure Unlike ly: < 300 pg/mLHeart Failure Likely< 50 Years: > 450 pg/mL50-75 Years: > 900 pg/mL>75 Years: > 1800 pg/mL Neutrophil percentageOrdered By: Jose Kam on 03-28-2025 Neutrophils/100 WBC (Bld) 82.7 % High 47-70 [facility] Nucleated red blood cell per centageOrdered By: Jose Kam on 03-28-2025 Nucleated RBC/100 WBC (Bld) [Ratio] 0 % 0-5 [facility] Platelet countOrdered By: Hiram Kam on 03-28-2025 Platelets (Bld) [#/Vol] 214 10*3/uL 150-450 [facility] Potassium measurement (mass/ volume)Ordered By: Jose Kam on 03-28-2025 Potassium (Unsp spec) [Mass/Vol] 3.5 mmol/L 3.3-5.1 [facility] Pro- Brain NATRIURETIC PEPTI Kvng 03-28-2025 Natriuretic peptide B (Bld) [Mass/Vol] 782 pg/mL Normal <=900 [facility] Comment on above: Result Comment: Hear t Failure Unlikely: < 300 pg/mL Heart Failure Likely < 50 Years: > 450 pg/mL 50-75 Years: > 900 pg/mL >75 Years: > 1800 pg/mL Performed By: #### L 500.2500 #### [facility] [address] [place], [address] RBC Auto (Bld) [#/Vol]Ordere d By: Jose Kam on 03-28-2025 RBC (Bld) [#/Vol] 3.47 10*6/uL Low 4.2-5.4 [facility] Screening total cholesterol/ high density lipoprotein (HDL) cholesterol ratioOrdered By: Jose Kam on 03-28-2025 Cholesterol.total/Lety sterol in HDL [Mass ratio] 2.24 {ratio} [facility] Serum creatinine measurement (mass/volume)Ordered By: Jose Kam on 03-28-2025 Creatinine [Mass/Vol] 1.12 mg/dL 0.70-1.20 [facility] Serum globulin measurementOr dered By: Jose Kam on 03-28-2025 Globulin (S) [Mass/Vol] 3.2 g/dL 2.2-4.2 [facility] Serum glucose measurement (m ass/volume)Ordered By: Jose Kam on 03-28-2025 Glucose [Mass/Vol] 151 mg/dL High 70-99 [facility] Serum or plasma alanine atkins otransferase (ALT) measurementOrdered By: Jose Kam on 03-28-2025 ALT [Catalytic activity/Vol] 33 U/L <35 [facility] Serum or plasma albumin nikunj urement (mass/volume)Ordered By: Jose Kam on 03-28-2025 Albumin [Mass/Vol] 3.7 g/dL 3.4-4.8 [facility] Serum or plasma albumin/glob ulin mass ratioOrdered By: Jose Kam on 03-28-2025 Albumin/Globulin [Mass ratio] 1.1 {ratio} 0.9-2.4 [facility] Serum or plasma alkaline alix sphatase measurementOrdered By: Jose Kam on 03-28-2025 ALP [Catalytic activity/Vol] 96 U/L 35-104 [facility] Serum or plasma calcium nikunj urement (mass/volume)Ordered By: Jose Kam on 03-28-2025 Calcium [Mass/Vol] 7.4 mg/dL Low 7.6-11.0 [facility] Serum or plasma cholesterol in HDL measurement (mass/volume)Ordered By: Jose Kam on 03-28-2025 Cholesterol in HDL [Mass/Vol] 60 mg/dL >40 [facility] Comment on above: National Cholesterol Education Program (NCEP) guidelines:<40 mg/dL: Low HDL-cholesterol (major risk factor for CHD)>= 60 mg/dL: High HDL-cholesterol (negative risk factor for CHD)HDL-cholesterol is affected by a number of factors, e.g. smoking, exercise, hormones, sex and age. Serum or plasma cholesterol measurement (mass/volume)Ordered By: Jose Kam on 03-28-2025 Cholesterol [Mass/Vol] 134 mg/dL <201 [facility] Comment on above: Cholesterol level, D esirable <200 mg/dLBorderline high cholesterol 200-239 mg/dLHigh cholesterol >=240 mg/dLRecommendations of the NCEP Adult Treatment Panel for the following risk-cutoff thresholds for the [place] population. Serum or plasma urea nitroge n measurement (mass/volume)Ordered By: Jose Kam on 03-28-2025 Urea nitrogen [Mass/Vol] 19 mg/dL 4-19 [facility] Sodium levelOrdered By: Nicholas er Negin on 03-28-2025 Sodium [Moles/Vol] 141 mmol/L 133-145 [facility] Total proteinOrdered By: Higinio Kam on 03-28-2025 Protein [Mass/Vol] 6.9 g/dL 5.9-8.4 [facility] Triglycerides measurementOrd ered By: Jose Kam on 03-28-2025 Triglyceride [Mass/Vol] 91 mg/dL <199 [facility] Comment on above: The drugs N-Acetylcy steine and Metamizole may falsely depress this assay. Normal range: <150 mg/dLBorderline High: 150-199 mg/dLHigh: 200-499 mg/dLVery High: >500 mg/dL White blood cell (WBC) count Ordered By: Jose Kam on 03-28-2025 WBC (Bld) [#/Vol] 16.5 10*3/uL High 4.4-11.0 [facility] Pulmonary Visit Reporton Pulmonary Visit Report [facility] [address] [place] [address] OFFICE VISIT Date of Service: 11/01/24 MR#: [id number] Acct: [id number] Name: SALLY AYALA Rep #: [id number] : 1950 Provider: SHANTA Reynolds Age/Sex: 74/F Location: [facility] Status: Signed Assessment and Plan Assessment and Plan (1) COPD (chronic obstructive pulmonary disease): Status: Chronic Qualifiers: COPD type: unspecified COPD Qualified Code(s): J44.9 - Chronic obstructive pulmonary disease, unspecified Comment: FEV1 32% of predicted Plan: Deteriorated. I do not believe she is an exacerbation of COPD today, however she has been hospitalized twice in the past 6 months for COPD exacerbations. I am going to proceed with placing her on a noninvasive ventilator. This patient requires a noninvasive ventilator to treat their COPD and chronic respiratory failure. Due to the degree of the COPD and risk of , as well as recurrent hospitalization or worsening condition, the patient needs to be managed with volume assured ventilation. Follow-up in the office in approximately 3 months to evaluate her response to therapy. She has been encouraged to contact the office if this medication is too expensive. She conveys understanding and is agreeable with this plan. No additional testing at this time. (2) Obesity: Status: Chronic Qualifiers: Obesity type: due to excess calories Obesity classification: adult class 3 (BMI gt;= 40) Serious obesity comorbidity presence: with serious comorbidity Body mass index: BMI 40.0-44.9 Qualified Code(s): E66.01 - Morbid (severe) obesity due to excess calories; Z68.41 - Body mass index [BMI] 40.0-44.9, adult Plan: Improving. Complicates exam, plan, care and prognosis. Continue to encourage weight loss. (3) Hypoxia: Status: Chronic Plan: She is using and benefiting from supplemental oxygen. Continue to titrate as needed to maintain saturations 89 to 92%. Also ordering a noninvasive ventilator. (4) Smoking greater than 30 pack years: Status: Chronic Comment: Quit smoking March 2023 Plan: She remains appropriate for repeat LDCT which will be due in October 2024, ordered accordingly. Orders: Orders Low Dose CT Lung Screening 10/04/25 F17.200 - Nicotine dependence, unspecified, uncomplicated, F17.210 - Nicotine dependence, cigarettes, uncomplicated Plan Details Additional Comments: This note was generated with Crzy[employer] software. It may contain incorrect words, spelling, and punctuation that were not noted in checking the note before signing. Follow Up: 3 Months ([facility]) HPI 4 M FU Chief Complaint: Test results HPI Comments Details: This patient presents to the office today for follow-up of her COPD with chronic hypoxic respiratory failure and to discuss test results. She is in a wheelchair and currently on supplemental oxygen. If you recall, she was hospitalized at [facility] from March 23 through March 29, 2020 for for staph pneumonia. She was most recently hospitalized at [facility] from August 28 through September 01, 2024 for pneumonia with acute on chronic hypoxia. She was treated with IV antibiotics, bronchodilators, supplemental oxygen. She was unable to tolerate BiPAP support. She did require between 2 and 4 L of supplemental oxygen. She was successfully ambulated on 4 L of supplemental oxygen prior to hospital discharge. She is compliant with use of Trelegy 1 puff daily. She does report rinsing her mouth out after each use. She denies any medication side effect such as sore throat or thrush. She states the medication has been very effective. She states that the only thing she does not like about it is that it is "expensive". She states that the medication is costing her approximately $36 per month. She is compliant with supplemental oxygen. She uses 3 L/min continuous. She uses 3 L/min continuous with sleep. She admits that sometimes she wakes up in the morning and has removed the nasal cannula inadvertently. If you recall, she quit smoking 1 year ago. She does have a greater than 61-wnni-ztka smoking history. She does have shortness of breath on exertion. She reports a dry cough but denies any sputum production or hemoptysis. She denies any wheezing, chest tightness, chest pain or palpitations. She denies any fever, chills or body aches. Test results personally viewed the patient: Low-dose CT lung screening completed on October 07, 2024. "No worrisome nodules are identified". Intake Vital Signs 03/08/24 07:40 03/25/24 09:38 08/30/24 13:51 11/01/24 08:31 Height 5 ft 4 in 5 ft 4.17 in 5 ft 4.17 in 5 ft 4 in Weight: 230 lb BMI 39.4 BP 110/68 Blood Pressure Location Lt brachial Position Sitting Respiration 20 H Pulse 65 P (more content not included)... Normal [facility] Low Dose CT Lung Screeningon 10-07-[address] Lung Screening [facility] [address] [place] [address] Lung Screening MR#: [id number] Acct: [id number] Name: SALLY AYALA Rep #: [id number] : 1950 F 74 From: Fredo Stevenson DO PCP: Dr. Justin Bolden MD Status: [facility] Study: Low Dose CT Lung Screening Date of Exam: 10/07 Exam# [id number] Ordering Dr: Kena Reynolds TRANSITIONAL CARE NURSE TRANSITIONAL CARE NURSE-C PROCEDURE: LOW DOSE CT LUNG SCREENING 10/07/2024 REASON FOR EXAM: SMOKER QUIT 03/2023. Prior to this 40 pack-year history of smoking. COPD. Home oxygen. TECHNIQUE: Low Dose CT Lung screening without contrast. Coronal and Sagittal reconstruction series were provided. One or more dose reduction techniques were used (e.g., Automated exposure control, adjustment of the mA and/or kV according to patient size, use of iterative reconstruction technique). REFERENCE LINK: L4 Mobile Lung-RADS RADIATION DOSE SUMMARY: CTDlvol: 4.02 mGy DLP: 142.95 mGycm COMPARISON: Noncontrast chest CT from March 24, 2024 FINDINGS: PULMONARY NODULES: (Only nodules >3mm are reported) Nodules described below are on series 2 unless otherwise specified. Pulmonary Nodules: No worrisome nodules are identified. Hardware:None. Lymph Nodes:No suspicious adenopathy. Heart and Vasculature:Heart is upper limits normal in size. Coronary Artery Calcifications: Moderately pronounced calcific coronary artery atherosclerosis is present. Lungs and Airways: Pleural thickening and scarring in the right base has improved compared to the prior study from March 2024. Other foci of pleural-based linear stranding appear the same or improved. Pleura:No pleural effusions. Upper Abdomen:No acute process identified in the upper abdomen. Bones:No aggressive bone lesions. CT/Low Dose CT Lung Screening IMPRESSION: No worrisome pulmonary nodules are identified. Coronary artery calcification (CAC) is moderately pronounced. Lung-RADS Category: 1 Other Significant Findings: None. Recommendation: Continue annual low-dose screening so long as the criteria for scanning are met. Reading [facility] CC: SHANTA Reynolds; Dr. Justin Bolden MD Bundle Collector: Signed Normal [facility] Cardiology Visit Reporton Cardiology Visit Report [facility] [place] [address] [facility]. [address] [place], [place] [address] OFFICE VISIT Date of Service: 09/26/24 MR#: [id number] Acct: [id number] Name: SALLY AYALA Rep #: [id number] : 1950 Provider: SHANTA adan Age/Sex: 74/F Location: [facility] Status: Signed HPI HPI History of Present Illness Details: SALLY AYALA, is a 74 F who presents to the office today for a cardiovascular outpatient follow-up. She has a history of nonischemic cardiomyopathy, coronary artery disease involving single-vessel diagonal branch, left bundle branch block, hypertension, hyperlipidemia, and tobacco abuse. She denies chest, arm, jaw, or neck discomfort. She denies palpitations. She states bilateral lower extremity edema. She denies claudication. She states shortness of breath with activity when walking long distances. She denies shortness of breath at rest, orthopnea, or PND. She denies chronic cough. She denies significant, sudden weight gain. She acknowledges dizziness. This occurred once She denies lightheadedness, near-syncope, or syncope. She denies blood in urine, blood in stool, or epistaxis. He denies fever with chills. She denies myalgia. She denies fatigue. Her exercise level has remained stable. 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: No Accompanied by: Is patient in pain?: No Allergies Iodinated Contrast Media (CONTRASTS) Allergy (Verified 09/26/24 11:33) Other meperidine (From Demerol) Allergy (Verified 09/26/24 11:33) Unknown Penicillins (PCN) Allergy (Verified 09/26/24 11:33) Rash Medications ???Medication ???Instructions ???Recorded ???Confirmed ???Type albuterol sulfate 90 mcg/actuation 2 puff inhalation Q4H PRN 09/26/24 History aerosol inhaler SHORTNESS OF BREATH/WHEEZING aspirin 81 mg tablet,delayed 81 mg PO DAILY HEART HEALTH 09/26/24 History release imipramine HCl 25 mg tablet 25 - 50 mg PO QHS BLADDER CONTROL 10/02/16 09/26/24 History simvastatin 40 mg tablet 40 mg PO QHS CHOLESTEROL 10/02/16 09/26/24 History Nebulizer machine #1 ea 09/15/23 11/06/23 Rx bupropion HCl 300 mg 24 hr tablet, 300 mg PO DAILY mental health 09/26/24 History extended release carvedilol 25 mg tablet 25 mg PO Q12H HEART 10/12/2309/26 History amlodipine 10 mg tablet 10 mg PO DAILY blood pressure #30 10/14/23 09/26/24 Rx tabs fluticasone fur. 200 mcg-umeclid 1 inh inhalation DAILY breathing 0 03/08/24 09/26/24 Rx 62.5 mcg-vilant 25 mcg #60 ea inhalat.powder (Trelegy Ellipta) ipratropium 20 mcg-albuterol 100 1 puff inhalation BID 03/08/24 History mcg/actuation mist for inhalation (Combivent Respimat) metformin 1,000 mg tablet 1,000 mg PO BID diabetes 03/08/24 09/26/24 History apixaban 5 mg tablet (Eliquis) 5 mg PO BID afib 30 days #60 tabs 03/29/24 09/26/24 Rx pantoprazole 40 mg tablet,delayed 40 mg PO BID gerd 30 days #60 tab s 03/29/24 09/26/24 Rx release cholecalciferol (vitamin D3) 25 3,000 unit PO DAILY vitamin 09/26/24 History mcg (1,000 unit) capsule lisinopril 40 mg tablet 40 mg PO QDAY blood pressure 09/26 History Ejection fraction %: 65 Have you fallen in the past year?: Yes (Multiple episodes, 1 episode due to dizziness. ) [facility] Medical History Acute and chronic respiratory failure with hypoxia Pneumonia Diabetes mellitus, type 2 Chronic hypoxic respiratory failure, on home oxygen therapy Morbid obesity CKD (chronic kidney disease), stage III Sleep apnea Nonischemic cardiomyopathy Essential (primary) hypertension LBBB (left bundle branch block) COPD (chronic obstructive pulmonary disease) Hyperlipidemia Nicotine abuse Atherosclerotic heart disease of [place] coronary artery without angina pectoris Bronchitis Surgical History History of colonoscopy with polypectomy History of total hip arthroplasty History of cholecystectomy History of cataract surgery History of appendectomy History of left heart catheterization (09/03/11) Family History Mother Hypertension Diabetes Father Cancer Social History (Updated 09/26/24 @ 11:41 by Nunu Malhotra) household members: none Smoking Status: Former smoker quit date: 04/04/23 how long ago did patient quit smokin alcohol intake: ne (more content not included)... Normal [facility] L501.2276on 09-14-2024 Ionized Calcium 1.10 mmol/L Normal 1.09-1.30 [facility] Comment on above: Performed By: #### L 500.2500, L501.2276, L100.0100, L509.1000 ####[facility] [address] [place], [address] Absolute neutrophil countOrd ered By: Justin Bolden on 09-08-2024 Neutrophils (Bld) [#/Vol] 13.2 10*3/uL High 2.0-7.7 [facility] Anion gap in Serum or Plasma Ordered By: Justin Bolden on 09-08-2024 Anion gap [Moles/Vol] 17 mmol/L High 5-15 [facility] BUN/creatinine ratioOrdered By: Justin Bolden on 09-08-2024 Urea nitrogen/Creatinine [Mass ratio] 17.8 mg/mg 10- [facility] Basic Metabolic Profile (BMP )on 09-08-2024 BUN/CRE 17.8 RATIO Normal - [facility] Comment on above: Performed By: #### L 500.2500, L501.2276, L100.0100, L509.1000 ####[facility] [address] [place], [address] Calcium [Mass/Vol] 8.3 mg/dL Normal 7.6-11.0 [facility] Comment on above: Performed By: #### L 500.2500, L501.2276, L100.0100, L509.1000 ####[facility] [address] [place], [address] Chloride [Moles/Vol] 104 mmol/L Normal 98-108 [facility] Comment on above: Performed By: #### L 500.2500, L501.2276, L100.0100, L509.1000 ####[facility] [address] [place], [address] CO2 [Moles/Vol] 22.4 mmol/L Normal 21.0-32.0 [facility] Comment on above: Performed By: #### L 500.2500, L501.2276, L100.0100, L509.1000 ####[facility] [address] [place], [address] Creatinine [Mass/Vol] 1.07 mg/dL Normal 0.70-1.20 [facility] Comment on above: Performed By: #### L 500.2500, L501.2276, L100.0100, L509.1000 ####[facility] [address] [place], [address] GAP 17 High 5-15 [facility] Comment on above: Performed By: #### L 500.2500, L501.2276, L100.0100, L509.1000 ####[facility] [address] [place], [address] GFR/1.73 sq M.predicted among non-blacks MDRD (S/P/Bld) [Vol rate/Area] 55 mL/min/{1.73_m2} Low >60 [facility] Comment on above: Result Comment: mL/m in/1.73m2 CKD-EPI Creatinine Equation (2020) Performed By: #### L 500.2500, L501.2276, L100.0100, L509.1000 ####[facility] [address] [place], [address] Glucose [Mass/Vol] 163 mg/dL High 70-99 [facility] Comment on above: Performed By: #### L 500.2500, L501.2276, L100.0100, L509.1000 ####[facility] [address] [place], [address] Potassium [Moles/Vol] 3.5 mmol/L Normal 3.3-5.1 [facility] Comment on above: Performed By: #### L 500.2500, L501.2276, L100.0100, L509.1000 ####[facility] [address] [place], [address] Sodium [Moles/Vol] 143 mmol/L Normal 133-145 [facility] Comment on above: Performed By: #### L 500.2500, L501.2276, L100.0100, L509.1000 ####[facility] [address] [place], [address] Urea nitrogen [Mass/Vol] 19 mg/dL Normal 4-19 [facility] Comment on above: Performed By: #### L 500.2500, L501.2276, L100.0100, L509.1000 ####[facility] [address] [place], [address] Basophil percentageOrdered B y: Justin Bolden on 09-08-2024 Basophils/100 WBC (Bld) 0.6 % 0-1 [facility] CBC W/Diff, Automatedon Absolute Lymph 1.49 X10 3/uL Normal 0.83-4.51 [facility] Comment on above: Performed By: #### L 500.2500, L501.2276, L100.0100, L509.1000 #### [facility] [address] [place], [address] Absolute Neut 13.2 X10 3/uL High 2.0-7.7 [facility] Comment on above: Performed By: #### L 500.2500, L501.2276, L100.0100, L509.1000 #### [facility] [address] [place], [address] Basophils/100 WBC (Bld) 0.6 % Normal 0-1 [facility] Comment on above: Performed By: #### L 500.2500, L501.2276, L100.0100, L509.1000 #### [facility] [address] [place], [address] Eosinophils/100 WBC (Bld) 0.8 % Normal 0-5 [facility] Comment on above: Performed By: #### L 500.2500, L501.2276, L100.0100, L509.1000 #### [facility] [address] [place], [address] Erythrocyte distribution width (RBC) [Ratio] 13.5 % Normal 11.6-14.6 [facility] Comment on above: Performed By: #### L 500.2500, L501.2276, L100.0100, L509.1000 #### [facility] [address] [place], [address] Hematocrit (Bld) [Volume fraction] 36.2 % Low 37-47 [facility] Comment on above: Performed By: #### L 500.2500, L501.2276, L100.0100, L509.1000 #### [facility] [address] [place], [address] Hemoglobin (Bld) [Mass/Vol] 11.6 g/dL Low 12.0-15.0 [facility] Comment on above: Performed By: #### L 500.2500, L501.2276, L100.0100, L509.1000 #### [facility] [address] [place], [address] IG% 1.200 High 0.0-0.9 [facility] Comment on above: Result Comment: IG% - Immature Granulocytes (promyelocytes, myelocytes and metamyelocytes) > 1% indicates that a LEFT SHIFT is Present. Performed By: #### L 500.2500, L501.2276, L100.0100, L509.1000 #### [facility] [address] [place], [address] Lymphocytes/100 WBC (Bld) 9.5 % Low 19-41 [facility] Comment on above: Performed By: #### L 500.2500, L501.2276, L100.0100, L509.1000 #### [facility] [address] [place], [address] [facility] (RBC) [Entitic mass] 32.1 pg High 27.0-32.0 [facility] Comment on above: Performed By: #### L 500.2500, L501.2276, L100.0100, L509.1000 #### [facility] [address] [place], [address] MCHC (RBC) [Mass/Vol] 32.0 g/dL Normal 32-36 [facility] Comment on above: Performed By: #### L 500.2500, L501.2276, L100.0100, L509.1000 #### [facility] [address] [place], [address] MCV (RBC) [Entitic vol] 100.3 fL High 81-99 [facility] Comment on above: Performed By: #### L 500.2500, L501.2276, L100.0100, L509.1000 #### [facility] [address] [place], [address] Monocytes/100 WBC (Bld) 3.8 % Normal 0-10 [facility] Comment on above: Performed By: #### L 500.2500, L501.2276, L100.0100, L509.1000 #### [facility] [address] [place], [address] Neutrophils/100 WBC (Bld) 84.1 % High 47-70 [facility] Comment on above: Performed By: #### L 500.2500, L501.2276, L100.0100, L509.1000 #### [facility] [address] [place], [address] Nucleated RBC (Bld) [#/Vol] 0 10*3/uL Normal 0-5 [facility] Comment on above: Performed By: #### L 500.2500, L501.2276, L100.0100, L509.1000 #### [facility] [address] [place], [address] Platelet mean volume (Bld) [Entitic vol] 11.3 fL Normal 6.2-12.0 [facility] Comment on above: Performed By: #### L 500.2500, L501.2276, L100.0100, L509.1000 #### [facility] [address] [place], [address] Platelets (Bld) [#/Vol] 337 10*3/uL Normal 150-450 [facility] Comment on above: Performed By: #### L 500.2500, L501.2276, L100.0100, L509.1000 #### [facility] [address] [place], [address] RBC (Bld) [#/Vol] 3.61 10*6/uL Low 4.2-5.4 [facility] Comment on above: Performed By: #### L 500.2500, L501.2276, L100.0100, L509.1000 #### [facility] [address] [place], [address] RDW SD 49.3 fl High 35.1-43.9 [facility] Comment on above: Performed By: #### L 500.2500, L501.2276, L100.0100, L509.1000 #### [facility] [address] [place], [address] WBC (Bld) [#/Vol] 15.7 10*3/uL High 4.4-11.0 [facility] Comment on above: Performed By: #### L 500.2500, L501.2276, L100.0100, L509.1000 #### [facility] [address] [place], [address] Calcium ionizedOrdered By: Leander Bolden on 09-08-2024 Ionized Calcium 1.10 mmol/L 1.09-1.30 [facility] Carbon dioxide, total [Moles /volume] in Central venous bloodOrdered By: Justin Bolden on 09-08-2024 CO2 [Moles/Vol] 22.4 mmol/L 21.0-32.0 [facility] Chloride assayOrdered By: Domenico Bolden on 09-08-2024 Chloride [Moles/Vol] 104 mmol/L 98-108 [facility] Eosinophil percentageOrdered By: Justin Bolden on 09-08-2024 Eosinophils/100 WBC (Bld) 0.8 % 0-5 [facility] Erythrocyte distribution wid th ratioOrdered By: Justin Bolden on 09-08-2024 Erythrocyte distribution width (RBC) [Ratio] 13.5 % 11.6-14.6 [facility] Erythrocyte distribution wid th standard deviationOrdered By: Justin Bolden on 09-08-2024 Erythrocyte distribution width (RBC) [Entitic vol] 49.3 fL High 35.1-43.9 [facility] GFR/1.73 sq M.predicted chidi g non-blacks MDRD (S/P/Bld) [Vol rate/Area]Ordered By: Justin Bolden on 09-08-2024 Estimated GFR (MDRD) Non-Af Amer 55 Low >60 [facility] Comment on above: mL/min/1.73m2 CKD-EP I Creatinine Equation (2020) Hematocrit Auto (Bld) [Volum e fraction]Ordered By: Justin Bolden on 09-08-2024 Hematocrit (Bld) [Volume fraction] 36.2 % Low 37-47 [facility] Hemoglobin measurementOrdere d By: Justin Bolden on 09-08-2024 Hemoglobin (Bld) [Mass/Vol] 11.6 g/dL Low 12.0-15.0 [facility] Immature granulocytes/100 WB C Auto (Bld)Ordered By: Justin Bolden on 09-08-2024 Immature granulocytes/100 WBC (Bld) 1.200 % High 0.0-0.9 [facility] Comment on above: IG% - Immature Granu locytes (promyelocytes, myelocytes and metamyelocytes) > 1% indicates that a LEFT SHIFT is Present. Lymphocytes Auto (Unsp spec) [#/Vol]Ordered By: Justin Bolden on 09-08-2024 Lymphocytes (Bld) [#/Vol] 1.49 10*3/uL 0.83-4.51 [facility] Lymphocytes/100 WBC Auto (Un sp spec)Ordered By: Justin Bolden on 09-08-2024 Lymphocytes/100 WBC (Bld) 9.5 % Low 19-41 [facility] MCV (mean corpuscular volume ) determinationOrdered By: Justin Bolden on 09-08-2024 MCV (RBC) [Entitic vol] 100.3 fL High 81-99 [facility] Mean corpuscular hemoglobin (MCH) determinationOrdered By: Justin Bolden on 09-08-2024 MCH (RBC) [Entitic mass] 32.1 pg High 27.0-32.0 [facility] Mean corpuscular hemoglobin concentration (MCHC) determinationOrdered By: Justin Bolden on 09-08-2024 MCHC (RBC) [Mass/Vol] 32.0 g/dL 32-36 [facility] Mean platelet volume determi nationOrdered By: Justin Bolden on 09-08-2024 Platelet mean volume (Bld) [Entitic vol] 11.3 fL 6.2-12.0 [facility] Monocyte percentageOrdered B y: Justin Bolden on 09-08-2024 Monocytes/100 WBC (Bld) 3.8 % 0-10 [facility] Neutrophil percentageOrdered By: Justin Bolden on 09-08-2024 Neutrophils/100 WBC (Bld) 84.1 % High 47-70 [facility] Nucleated red blood cell per centageOrdered By: Justin Bolden on 09-08-2024 Nucleated RBC/100 WBC (Bld) [Ratio] 0 % 0-5 [facility] PTH intactOrdered By: Justin kenny on 09-08-2024 Parathyroid Hormone (Intact) 88 pg/mL High 11 [facility] PTHINon 09-08-2024 PTH 88 pg/mL High [facility] Comment on above: Performed By: #### L 500.2500, L501.2276, L100.0100, L509.1000 ####[facility] [address] [place], [address] Platelet countOrdered By: Domenico Bolden on 09-08-2024 Platelets (Bld) [#/Vol] 337 10*3/uL 150-450 [facility] Potassium (Unsp spec) [Mass/ Vol]Ordered By: Justin Bolden on 09-08-2024 Potassium [Moles/Vol] 3.5 mmol/L 3.3-5.1 [facility] RBC Auto (Bld) [#/Vol]Ordere d By: Justin Bolden on 09-08-2024 RBC (Bld) [#/Vol] 3.61 10*6/uL Low 4.2-5.4 [facility] Serum creatinine measurement (mass/volume)Ordered By: Justin Bolden on 09-08-2024 Creatinine [Mass/Vol] 1.07 mg/dL 0.70-1.20 [facility] Serum glucose measurement (m ass/volume)Ordered By: Justin Bolden on 09-08-2024 Glucose [Mass/Vol] 163 mg/dL High 70-99 [facility] Serum or plasma calcium nikunj urement (mass/volume)Ordered By: Justin Bolden on 09-08-2024 Calcium [Mass/Vol] 8.3 mg/dL 7.6-11.0 [facility] Serum or plasma urea nitroge n measurement (mass/volume)Ordered By: Justin Bolden on 09-08-2024 Urea nitrogen [Mass/Vol] 19 mg/dL 4-19 [facility] Sodium levelOrdered By: Justin Bolden on 09-08-2024 Sodium [Moles/Vol] 143 mmol/L 133-145 [facility] White blood cell (WBC) count Ordered By: Justin Bolden on 09-08-2024 WBC (Bld) [#/Vol] 15.7 10*3/uL High 4.4-11.0 [facility] Bedside Glucoseon 09-01-2024 FINGERSTICK GLU 188 mg/dL High 74-106 [facility] Comment on above: Result Comment: BORIS RIVAS OF PATIENT CARE PER NURSING PROTOCOL Performed By: #### L 501.080 ####[facility] [address] [place], [address] FINGERSTICK GLU 111 mg/dL High 74-106 [facility] Comment on above: Result Comment: BORIS GEMENT OF PATIENT CARE PER NURSING PROTOCOL Performed By: #### L 500.2500 #### [facility] [address] [place], [address] FINGERSTICK GLU 123 mg/dL High 74-106 [facility] Comment on above: Result Comment: BORIS GEMENT OF PATIENT CARE PER NURSING PROTOCOL Performed By: #### L 501.080 #### [facility] [address] [place], [address] Discharge Instructionon 08-07 Discharge Instruction [facility] Medical Records Department [address] [place] [address] Instructions for Home/Discharge Instructions 09/01/24 1116 MR#: [id number] Acct: [id number] Name: SALLY AYALA Rep #: [id number] : 1950 73 From: Blaise العلي DO PCP: Dr. Justin Bolden MD Status:ADM IN Discharge Instructions Diet Discharge Diet: 1800 Calorie Control Diet DC O2, CPAP, BIPAP needs Home O2 Discharge instructions: Yes Type of respiratory needs?: Oxygen Oxygen frequency: Continuous Continuous oxygen liters per minute: 2 L and With Ambulation Oxygen liters per minute during Ambulation: 4 L Dressing / Incision Discharge Activity: Return to Normal Activity Weight Bearing Status: Full weight bearing Follow Up Care Test Results: Test results from this visit will be discussed in further detail at your follow-up appointment, if applicable. Discharge Plan Admission Admit Date/Time: 08/28/24 23:07 Primary Reason for Your Visit: Exacerbation of COPD, community-acquired pneumonia Attending Provider: Blaise العلي Primary Care Provider: Justin Bolden Consulting Providers: Chantelle Chavarria Discharge Orders/Prescriptions Prescriptions: New doxycycline monohydrate 100 mg Capsule 100 mg PO BID Qty: 7 0RF Continued metformin 1,000 mg tablet 1,000 mg PO BID cholecalciferol (vitamin D3) 25 mcg (1,000 unit) capsule 25 mcg PO DAILY Combivent Respimat 20-100 mcg/actuation mist 1 puff inhalation BID Trelegy Ellipta 200-62.5-25 mcg blister with device 1 inh inhalation DAILY Qty: 60 6RF aspirin 81 MG tablet 81 mg PO DAILY simvastatin 40 MG tablet 40 mg PO QHS albuterol sulfate 1 PUFF inhaler 2 puff INHALATION Q4H PRN (Reason: SHORTNESS OF BREATH/WHEEZING ) imipramine HCl 25 MG tablet 25 - 50 mg PO QHS carvedilol 25 mg tablet 25 mg PO Q12H bupropion HCl 300 mg tablet extended release 24 hr 300 mg PO DAILY amlodipine 10 mg Tablet 10 mg PO DAILY Qty: 30 1RF pantoprazole 40 mg Tablet,Delayed Release (Dr/Ec) 40 mg PO BID 30 Days Qty: 60 0RF Eliquis 5 mg Tablet 5 mg PO BID 30 Days Qty: 60 0RF furosemide 40 mg tablet 40 mg PO DAILY Qty: 7 0RF (DME) Nebulizer machine See Rx Instructions .ROUTE .MEDSUPPLY Qty: 1 0RF Rx Instructions: As directed lisinopril 40 mg tablet 40 mg PO BID Qty: 180 3RF Discontinued doxycycline monohydrate 100 mg Capsule 100 mg PO BID 3 Days Qty: 6 0RF prednisone 10 mg tablet 40 mg PO BREAKFAST Qty: 18 0RF Rx Instructions: Take 3 tablets daily for 3 days then 2 tablets daily for 3 days then 1 tablet daily for 3 days Referrals / Follow Up: Justin Bolden MD [Primary Care Provider] - 09/08/24 2:00 pm Disposition Disposition (needs filled in before D/C Order can be placed): Home Health Service 09/01/24 1154 Blaise العلي DO CC: Dr. Chantelle Chavarria MD; Dr. Justin Bolden MD Signed Normal [facility] Glucose measurement at [facility] deOrdered By: Blaise العلي on 09-01-2024 Bedside Glucose (Misc Panel) 188 mg/dL High 74-106 [facility] Comment on above: MANAGEMENT OF PATIEN T CARE PER NURSING PROTOCOL Bedside Glucoseon 08-31-2024 FINGERSTICK GLU 173 mg/dL High 74-106 [facility] Comment on above: Result Comment: BORIS GEMENT OF PATIENT CARE PER NURSING PROTOCOL Performed By: #### L 501.080 ####[facility] [address] [place], [address] FINGERSTICK GLU 121 mg/dL High 74-106 [facility] Comment on above: Result Comment: BORIS GEMENT OF PATIENT CARE PER NURSING PROTOCOL Performed By: #### L 500.2500 #### [facility] [address] [place], [address] FINGERSTICK GLU 139 mg/dL High 74-106 [facility] Comment on above: Result Comment: BORIS GEMENT OF PATIENT CARE PER NURSING PROTOCOL Performed By: #### L 501.080 #### [facility] [address] [place], [address] FINGERSTICK GLU 113 mg/dL High 74-106 [facility] Comment on above: Result Comment: BORIS GEMENT OF PATIENT CARE PER NURSING PROTOCOL Performed By: #### L 501.080 #### [facility] [address] [place], [address] Absolute neutrophil countOrd ered By: Herbert Schultz on 08-30-2024 Neutrophils (Bld) [#/Vol] 16.6 10*3/uL High 2.0-7.7 [facility] Basic Metabolic Profile (BMP )on 08-30-2024 BUN/CRE 19.5 RATIO Normal 10-20 [facility] Comment on above: Performed By: #### L 501.080 #### [facility] [address] [place], [address] CA,Total 6.9 mg/dL Low 8.5-10.1 [facility] Comment on above: Performed By: #### L 501.080 #### [facility] [address] [place], [address] Chloride [Moles/Vol] 106 mmol/L Normal 98-107 [facility] Comment on above: Performed By: #### L 501.080 #### [facility] [address] [place], [address] CO2 [Moles/Vol] 26.0 mmol/L Normal 21.0-32.0 [facility] Comment on above: Performed By: #### L 501.080 #### [facility] [address] [place], [address] Creatinine [Mass/Vol] 0.98 mg/dL Normal 0.55-1.02 [facility] Comment on above: Result Comment: The validity of the calculated GFR GFRAA in patients over 70 years has not been determined. Clinical correlation is essential. Performed By: #### L 501.080 #### [facility] [address] [place], [address] ECRCL 61.74 ml/min Normal [facility] Comment on above: Performed By: #### L 501.080 #### [facility] [address] [place], [address] EST GFR - AA 72 mL/min Normal >60 [facility] Comment on above: Result Comment: Afri can [employer] GFR Calc Performed By: #### L 501.080 #### [facility] [address] [place], [address] GAP 5 Normal 5-15 [facility] Comment on above: Performed By: #### L 501.080 #### [facility] [address] [place], [address] GFR/1.73 sq M.predicted among non-blacks MDRD (S/P/Bld) [Vol rate/Area] 59 mL/min/{1.73_m2} Low >60 [facility] Comment on above: Result Comment: Non- GFR Calc Performed By: #### L 501.080 #### [facility] [address] [place], [address] Glucose [Mass/Vol] 143 mg/dL High 74-106 [facility] Comment on above: Result Comment: Fast ing Glucose result greater than or equal to 126 mg/dL suggests DIABETES MELLITUS per A.D.A. criteria. Performed By: #### L 501.080 #### [facility] [address] [place], [address] Potassium [Moles/Vol] 3.9 mmol/L Normal 3.5-5.1 [facility] Comment on above: Performed By: #### L 501.080 #### [facility] [address] [place], [address] Sodium [Moles/Vol] 137 mmol/L Normal 136-145 [facility] Comment on above: Performed By: #### L 501.080 #### [facility] [address] [place], [address] Urea nitrogen [Mass/Vol] 19 mg/dL High 7-18 [facility] Comment on above: Performed By: #### L 501.080 #### [facility] [address] [place], [address] Basophil percentageOrdered B y: Herbert Schultz on 08-30-2024 Basophils/100 WBC (Bld) 0.3 % 0-1 [facility] Bedside Glucoseon 08-30-2024 FINGERSTICK GLU 170 mg/dL High 74-106 [facility] Comment on above: Result Comment: BORIS GEMENT OF PATIENT CARE PER NURSING PROTOCOL Performed By: #### L 501.080 ####[facility] [address] [place], [address] FINGERSTICK GLU 116 mg/dL High 74-106 [facility] Comment on above: Result Comment: BOIRS GEMENT OF PATIENT CARE PER NURSING PROTOCOL Performed By: #### L 500.2500 #### [facility] [address] [place], [address] FINGERSTICK GLU 142 mg/dL High 74-106 [facility] Comment on above: Result Comment: BORIS GEMENT OF PATIENT CARE PER NURSING PROTOCOL Performed By: #### L 501.080 #### [facility] [address] [place], [address] FINGERSTICK GLU 141 mg/dL High 74-106 [facility] Comment on above: Result Comment: BORIS GEMENT OF PATIENT CARE PER NURSING PROTOCOL Performed By: #### L 501.080 #### [facility] [address] [place], [address] FINGERSTICK GLU 140 mg/dL High 74-106 [facility] Comment on above: Result Comment: BORIS GEMENT OF PATIENT CARE PER NURSING PROTOCOL Performed By: #### L 501.080 #### [facility] [address] [place], [address] Blood urea nitrogen (BUN)/cr eatinine ratioOrdered By: Herbert Schultz on 08-30-2024 Urea nitrogen/Creatinine [Mass ratio] 19.5 mg/mg 10-20 [facility] CBC W/Diff, Automatedon 08-07 PATH REV Reviewed Normal [facility] Comment on above: Result Comment: Neut rophilic leukocytosis. Macrocytic anemia. Clinical correlation necessary. Tobin Boucher M.D. 08/30/24 AMENDED REPORT 08/30/24 1153 PATH REV previously reported as: November Performed By: #### L 501.080 #### [facility] [address] [place], [address] Carbon dioxide measurementOr dered By: Herbert Schultz on 08-30-2024 CO2 [Moles/Vol] 26.0 mmol/L 21.0-32.0 [facility] Chloride measurementOrdered By: Herbert Schultz on 08-30-2024 Chloride [Moles/Vol] 106 mmol/L 98-107 [facility] EGD Reporton 08-30-2024 EGD Report [facility] Medical Records Department [address] [place] [address] EGD Report MR#: [id number] Acct: [id number] Name: SALLY AYALA Rep #: [id number] : 1950 73 From: Jadon Solano DO PCP: Dr. Justin Bolden MD Status:ADM IN Patient Name: Sally Ayala Procedure Date: 08/30/2024 3:55 PM Date of : 1950 Age: 73 Procedure: Upper GI endoscopy Indications: Dysphagia Providers: Jadon Solano DO Referring MD: Jackson Negrete Do Medicines: Propofol per Anesthesia Patient Profile: This is a 73 year old female. Refer to note in patient chart for documentation of history and physical. Patient has symptoms of dysphagia with both liquids and solids. Her most recent EGD for dilation. Complications: No immediate complications. Procedure: Pre-Anesthesia Assessment: - Prior to the procedure, a History and Physical was performed, and patient medications and allergies were reviewed. The patient is competent. The risks and benefits of the procedure and the sedation options and risks were discussed with the patient. All questions were answered and informed consent was obtained. Patient identification and proposed procedure were verified by the physician in the pre-procedure area. Mental Status Examination: alert and oriented. Airway Examination: normal oropharyngeal airway and neck mobility. Respiratory Examination: clear to auscultation. CV Examination: normal. Prophylactic Antibiotics: The patient does not require prophylactic antibiotics. Prior Anticoagulants: The patient has taken no anticoagulant or antiplatelet agents except for NSAID medication. ASA Grade Assessment: II - A patient with mild systemic disease. After reviewing the risks and benefits, the patient was deemed in satisfactory condition to undergo the procedure. The anesthesia plan was to use monitored anesthesia care (MAC). Immediately prior to administration of medications, the patient was re-assessed for adequacy to receive sedatives. The heart rate, respiratory rate, oxygen saturations, blood pressure, adequacy of pulmonary ventilation, and response to care were monitored throughout the procedure. The physical status of the patient was re-assessed after the procedure. After obtaining informed consent, the endoscope was passed under direct vision. Throughout the procedure, the patient's blood pressure, pulse, and oxygen saturations were monitored continuously. The Endoscope was introduced through the mouth, and advanced to the second part of duodenum. The upper GI endoscopy was accomplished without difficulty. The patient tolerated the procedure well. Scope In: 4:07:05 PM Scope Out: 4:21:41 PM Total Procedure Duration Time 0 hours 14 minutes 36 seconds Findings: Diffuse, white plaques were found in the entire esophagus. Biopsies were taken with a cold forceps for histology. Verification of patient identification for the specimen was done. Estimated blood loss was minimal. Abnormal motility was noted in the esophagus. The cricopharyngeus was abnormal. There are extra peristaltic waves in the esophageal body. The distal esophagus/lower esophageal sphincter is spastic, but gives up passage to the endoscope. Tertiary peristaltic waves are noted. Area was successfully injected with 100 units botulinum toxin. A hiatal hernia was present. No gross lesions were noted in the first portion of the duodenum. Impression: - Esophageal plaques were found, consistent with candidiasis. Biopsied. - Abnormal esophageal motility, established achalasia. Injected with botulinum toxin. - Hiatal hernia. - No gross lesions in the first portion of the duodenum. Recommendation: - Return patient to hospital [facility] for ongoing care. - Advance diet as tolerated. - Continue present medications. - Await pathology results. - Nystatin suspension 100,000 units PO QID for 1 week. Procedure Code(s): --- Professional --- 61728, Esophagogastroduodenos copy, flexible, transoral; with biopsy, single or multiple 35769, 59,51, Esophagogastroduodenos copy, flexible, transoral; with directed submucosal injection(s), any substance CPT copyright 2021 [employer]. All rights reserved. The codes documented in this report are preliminary and upon family medicine physician review may be revised to meet current compliance requirements. Jadon Solano DO 08/30/2024 4:35:44 PM This report has been signed electronically. Number of Addenda: 0 Note Initiated On: 08/30/2024 3:55 PM 08/30/24 1636 Date Jadon Barriga Signature: Date (if indicated) CC: Dr. Justin Bolden MD; Jadon Friend, DO Date Dictated: 08/30/241554 Date Transcribed: Bundle Collector: FOUZIA (more content not included)... Normal [facility] Eosinophil percentageOrdered By: Herbert Schultz on 08-30-2024 Eosinophils/100 WBC (Bld) 0.2 % 0-5 [facility] Erythrocyte distribution wid th ratioOrdered By: Herbert Schultz on 08-30-2024 Erythrocyte distribution width (RBC) [Ratio] 13.0 % 11.6-14.6 [facility] Erythrocyte distribution wid th standard deviationOrdered By: Herbert Schultz on 08-30-2024 Erythrocyte distribution width (RBC) [Entitic vol] 46.6 fL High 35.1-43.9 [facility] Estimated glomerular filtrat ion rate (GFR) AmericanOrdered By: Herbert Schultz on 08-30-2024 Estimated GFR (MDRD) Amer 72 mL/min >60 [facility] Comment on above: GFR Calc Estimation of creatinine raiza aranceOrdered By: Herbert Schultz on 08-30-2024 Estimated Creatinine Clearance Calc 61.74 ml/min [facility] Glomerular filtration rate ( GFR) estimationOrdered By: Herbert Schultz on 08-30-2024 Estimated GFR (MDRD) Non-Af Amer 59 mL/min Low >60 [facility] Comment on above: Non- GFR Calc Glucose measurementOrdered B y: Herbert Schultz on 08-30-2024 Glucose [Mass/Vol] 143 mg/dL High 74-106 [facility] [place] Comment on above: Fasting Glucose resu lt greater than or equal to 126 mg/dL suggests DIABETES MELLITUS per A.D.A. criteria. Hematocrit Auto (Bld) [Volum e fraction]Ordered By: Herbert Schultz on 08-30-2024 Hematocrit (Bld) [Volume fraction] 30.0 % Low 37-47 [facility] Hemoglobin measurementOrdere d By: Herbert Schultz on 08-30-2024 Hemoglobin (Bld) [Mass/Vol] 9.6 g/dL Low 12.0-15.0 [facility] Immature granulocytes/100 WB C Auto (Bld)Ordered By: Herbert Schultz on 08-30-2024 Immature granulocytes/100 WBC (Bld) 0.900 % 0.0-0.9 [facility] Comment on above: IG% - Immature Granu locytes (promyelocytes, myelocytes and metamyelocytes) > 1% indicates that a LEFT SHIFT is Present. Lymphocytes Auto (Unsp spec) [#/Vol]Ordered By: Herbert Schultz on 08-30-2024 Lymphocytes (Bld) [#/Vol] 1.54 10*3/uL 0.83-4.51 [facility] Lymphocytes/100 WBC Auto (Un sp spec)Ordered By: Herbert Schultz on 08-30-2024 Lymphocytes/100 WBC (Bld) 7.7 % Low 19-41 [facility] MCV (mean corpuscular volume ) determinationOrdered By: Herbert Schultz on 08-30-2024 MCV (RBC) [Entitic vol] 99.7 fL High 81-99 [facility] MR/POSTOP.ANEon 08-30-2024 MR/POSTOP.ANE [facility] Medical Records Department [address] [place] [address] Anesthesia Postop Eval I 08/30/241633 MR#: [id number] Acct: [id number] Name: SALLY AYALA Rep #: [id number] : 1950 73 From: Benigno Rae PCP: Dr. Justin Bolden MD Status:ADM IN Y Race: C Location: [place] [id number] Anesthesia: Postop Eval I Current Vital Signs Temperature: 97.2 F Pulse Rate: 84 Blood Pressure: 108/61 Respiratory Rate: 18 Pulse Ox: 92 Oxygen Delivery Method: Nasal Cannula Oxygen Flow Rate (L/min): 4 Assessment Airway patent: Yes Spontaneous unlabored respirations: Yes Mental status: Awake nausea: No Vomiting: No Anesthesia Complication: No Fluid Hydration Crystalloid volume administer (ml): 40 Total IV fluid infused: 40 Progress Note Anesthesia document: Postop Eval 1 completed: Yes 08/30/241634 Date Benigno Rivera Signature: Date CC: Signed Normal [facility] [id number] 08-30-2024 MR/POSTOPAN2 [facility] Medical Records Department [address] [place] [address] Anesthesia Postop Eval II 08/30/241847 MR#: [id number] Acct: [id number] Name: SALLY AYALA Rep #: [id number] : 1950 73 From: Herbert Schultz MD PCP: Dr. Justin Bolden MD Status:ADM IN Y Race: C Location: [place] [address] Anesthesia Postop Eval I Sum Postop Eval Completion status Anesthesia document: Postop Eval 1 completed: Yes Anesthesia Postop Eval I Summary Anesthesia Postop Eval I Summary: Anesthesia Postop Eval I: Assessment Summary Airway patent Yes 08/30/24 16:35 [email or web address] Spontaneous unlabored Yes 08/30/24 16:35 [email or web address] respirations Mental status Awake 08/30/24 16:35 [email or web address] nausea No 08/30/24 16:35 [email or web address] Vomiting No 08/30/24 16:35 [email or web address] Anesthesia Postop Eval I: Fluid Summary Crystalloid volume administer 40 08/30/24 16:35 [email or web address] (ml) Colloids volume administered ( ml) Blood Product volume administered (ml) Total IV fluid infused 40 08/30/24 16:35 [email or web address] Anesthesia Postop Eval I: Summary Notes Anesthesia Complication No 08/30/24 16:35 [email or web address] Anesthesia Complication Comment: Post-operative progress note Anesthesia: Postop Eval II Evaluation Mental status: Awake and Calm Pain Level: 0 nausea: No Vomiting: No Complications Anesthesia Complication: No 08/30/241847 Date Herbert Schultz MD Cosigner Signature: Date CC: Signed Normal [facility] Manual differential comment Wilfrid (Bld) [Interp]Ordered By: Herbert Schultz on 08-30-2024 Differential Comment COMMENT [facility] Comment on above: MONOCYTOSIS. Mean corpuscular hemoglobin (MCH) determinationOrdered By: Herbert Schultz on 08-30-2024 MCH (RBC) [Entitic mass] 31.9 pg 27.0-32.0 [facility] Mean corpuscular hemoglobin concentration (MCHC) determinationOrdered By: Herbert Schultz on 08-30-2024 MCHC (RBC) [Mass/Vol] 32.0 g/dL 32-36 [facility] Mean platelet volume determi nationOrdered By: Herbert Schultz on 08-30-2024 Platelet mean volume (Bld) [Entitic vol] 12.0 fL 6.2-12.0 [facility] Monocyte percentageOrdered B y: Herbert Schultz on 08-30-2024 Monocytes/100 WBC (Bld) 8.1 % 0-10 [facility] Neutrophil percentageOrdered By: Herbert Schultz on 08-30-2024 Neutrophils/100 WBC (Bld) 82.8 % High 47-70 [facility] Nucleated red blood cell per centageOrdered By: Herbert Schultz on 08-30-2024 Nucleated RBC/100 WBC (Bld) [Ratio] 0 % 0-5 [facility] Pathologist review Wilfrid (Unsp spec) [Interp]Ordered By: Herbert Schultz on 08-30-2024 Differential Pathologist's Review Reviewed [facility] Comment on above: Previous reported re sult: Lacie barrett Edited by: SERAFIN on 08/30/24:1153Neutrophilic leukocytosis.Macrocytic anemia.Clinical correlation necessary.Tobin Boucher M.D. 08/30/24 AMENDED REPORT 08/30/24 1153 PATH REV previously reported as: November Platelet countOrdered By: Teofilo on 08-30-2024 Platelets (Bld) [#/Vol] 179 10*3/uL 150-450 [facility] Potassium measurementOrdered By: Herbert Schultz on 08-30-2024 Potassium [Moles/Vol] 3.9 mmol/L 3.5-5.1 [facility] RBC Auto (Bld) [#/Vol]Ordere d By: Herbert Schultz on 08-30-2024 RBC (Bld) [#/Vol] 3.01 10*6/uL Low 4.2-5.4 [facility] Serum anion gap measurementO rdered By: Herbert Schultz on 08-30-2024 Anion gap [Moles/Vol] 5 mmol/L 5-15 [facility] Serum or plasma calcium nikunj urement (mass/volume)Ordered By: Herbert Schultz on 08-30-2024 Calcium [Mass/Vol] 6.9 mg/dL Low 8.5-10.1 [facility] Serum or plasma creatinine m easurement (mass/volume)Ordered By: Herbert Schultz on 08-30-2024 Creatinine [Mass/Vol] 0.98 mg/dL 0.55-1.02 [facility] Comment on above: The validity of the calculated GFR & GFRAA in patients over 70 years has not been determined. Clinical correlation is essential. Serum or plasma urea nitroge n measurement (mass/volume)Ordered By: Herbert Schultz on 08-30-2024 Urea nitrogen [Mass/Vol] 19 mg/dL High 7-18 [facility] Sodium levelOrdered By: Thiago Schultz on 08-30-2024 Sodium [Moles/Vol] 137 mmol/L 136-145 [facility] Special Stain Group Ion - Special Stain Group I ---- ---- Patient Age/Sex Location Account Attending Physician ---- LUCYSALLY CANNON 73/F MS3 [id number] Dr. Blaise العلي DO ---- Specimen: [id number] Received: 08/31/24 Status: BUBBA Casper Num: [id number] Spec Type: EGD BIOPSY Subm Dr: Jadon Solano DO HEADER OPERATION: EGD, biopsy, Botox injection PRE-OP DIAGNOSIS: Esophageal gastric junction outflow obstruction or a form of achalasia type I or type II. TISSUE SUBMITTED: Random esophagus biopsy ---- MICROSCOPIC DIAGNOSIS Esophagus, random biopsy: Fragments of squamous epithelium with minimal chronic inflammation and congestion. See comment. mr 09/01/2024 COMMENT Special stain for fungi is positive for a few organisms (yeast and pseudohyphae) consistent with Ramila species; matched control is appropriate. This case has been reviewed in consultation with Dr. Garnica who concurs with the above diagnosis. IDC:FA MICROSCOPIC DESCRIPTION Slides are reviewed. GROSS DESCRIPTION Received in fixative is one container labeled with the patient's name and designated "Random esophagus biopsy." The specimen consists of multiple irregular fragments of light valle soft tissue that in aggregate measure 1 x 0.2 x 0.2 cm. The specimen is totally submitted in one cassette. 08/31/2024 TC:3 CPT:04989,91254 ---- Patient Age/Sex Location Account Attending Physician ---- SALLY AYALA 73/F MS3 [id number] Dr. Blaise العلي DO ---- Signed (signature on file) Dr. Tobin Boucher MD 09/01/24 1403 ---- Normal [facility] Comment on above: Performed By: #### P SSI ####[facility] [address] [place], [address] White blood cell (WBC) count Ordered By: Herbert Schultz on 08-30-2024 WBC (Bld) [#/Vol] 20.1 10*3/uL High 4.4-11.0 [facility] Albumin to globulin ratioOrd ered By: Chantelle Chavarria on 08-29-2024 Albumin/Globulin [Mass ratio] 0.6 {ratio} Low 0.9-2.4 [facility] Bedside Glucoseon 08-29-2024 FINGERSTICK GLU 181 mg/dL High 74-106 [facility] Comment on above: Result Comment: BORIS GEMENT OF PATIENT CARE PER NURSING PROTOCOL Performed By: #### L 501.080 #### [facility] [address] [place], [address] FINGERSTICK GLU 161 mg/dL High 74-106 [facility] Comment on above: Result Comment: BORIS GEMENT OF PATIENT CARE PER NURSING PROTOCOL Performed By: #### L 500.2500 #### [facility] [address] [place], [address] FINGERSTICK GLU 118 mg/dL High 74-106 [facility] Comment on above: Result Comment: BORIS GEMENT OF PATIENT CARE PER NURSING PROTOCOL Performed By: #### L 501.080 #### [facility] [address] [place], [address] Bilirubin, totalOrdered By: Chantelle Chavarria on 08-29-2024 Bilirubin [Mass/Vol] 0.70 mg/dL 0.20-1.00 [facility] Comment on above: For patients on eltr ombopag therapy, use of Dimension Wendel TBIL is not recommended. CBC W/Diff, Automatedon 08-07 PATH REV Reviewed Normal [facility] Comment on above: Result Comment: Neut rophilic leukocytosis. Macrocytic anemia. Clinical correlation necessary. Tobin Boucher M.D. 08/29/24 AMENDED REPORT 08/29/24 1533 PATH REV previously reported as: November nena Performed By: #### L 500.2500 #### [facility] [address] [place], [address] Comprehensive Metabolic Prof ilon 08-29-2024 Albumin [Mass/Vol] 2.6 g/dL Low 3.2-5.0 [facility] Comment on above: Performed By: #### L 500.2500 #### [facility] [address] [place], [address] Albumin/Globulin [Mass ratio] 0.6 {ratio} Low 0.9-2.4 [facility] Comment on above: Performed By: #### L 500.2500 #### [facility] [address] [place], [address] ALK P 72 U/L Normal 45-117 [facility] Comment on above: Performed By: #### L 500.2500 #### [facility] [address] [place], [address] ALT [Catalytic activity/Vol] 22 U/L Normal 13-56 [facility] Comment on above: Performed By: #### L 500.2500 #### [facility] [address] [place], [address] AST [Catalytic activity/Vol] 15 U/L Normal 15-37 [facility] Comment on above: Performed By: #### L 500.2500 #### [facility] [address] [place], [address] Bilirubin [Mass/Vol] 0.70 mg/dL Normal 0.20-1.00 [facility] Comment on above: Result Comment: For patients on eltrombopag therapy, use of Dimension Wendel TBIL is not recommended. Performed By: #### L 500.2500 #### [facility] [address] [place], [address] BUN/CRE 21.8 RATIO High 10-20 [facility] Comment on above: Performed By: #### L 500.2500 #### [facility] [address] [place], [address] CA,Total 7.2 mg/dL Low 8.5-10.1 [facility] Comment on above: Performed By: #### L 500.2500 #### [facility] [address] [place], [address] Chloride [Moles/Vol] 106 mmol/L Normal 98-107 [facility] Comment on above: Performed By: #### L 500.2500 #### [facility] [address] [place], [address] CO2 [Moles/Vol] 26.0 mmol/L Normal 21.0-32.0 [facility] Comment on above: Performed By: #### L 500.2500 #### [facility] [address] [place], [address] Creatinine [Mass/Vol] 1.01 mg/dL Normal 0.55-1.02 [facility] Comment on above: Result Comment: The validity of the calculated GFR GFRAA in patients over 70 years has not been determined. Clinical correlation is essential. Performed By: #### L 500.2500 #### [facility] [address] [place], [address] ECRCL 58.97 ml/min Normal [facility] Comment on above: Performed By: #### L 500.2500 #### [facility] [address] [place], [address] EST GFR - AA 69 mL/min Normal >60 [facility] Comment on above: Result Comment: Afri can Swazi GFR Calc Performed By: #### L 500.2500 #### [facility] [address] [place], [address] GAP 8 Normal 5-15 [facility] Comment on above: Performed By: #### L 500.2500 #### [facility] [address] [place], [address] GFR/1.73 sq M.predicted among non-blacks MDRD (S/P/Bld) [Vol rate/Area] 57 mL/min/{1.73_m2} Low >60 [facility] Comment on above: Result Comment: Non- GFR Calc Performed By: #### L 500.2500 #### [facility] [address] [place], [address] Globulin (S) [Mass/Vol] 4.3 g/dL High 2.2-4.2 [facility] Comment on above: Performed By: #### L 500.2500 #### [facility] [address] [place], [address] Glucose [Mass/Vol] 105 mg/dL Normal 74-106 [facility] Comment on above: Result Comment: Fast ing Glucose result from 100 to 125 mg/dL suggests IMPAIRED HOMEOSTASIS per A.D.A. criteria. Performed By: #### L 500.2500 #### [facility] [address] [place], [address] Potassium [Moles/Vol] 4.2 mmol/L Normal 3.5-5.1 [facility] Comment on above: Performed By: #### L 500.2500 #### [facility] [address] [place], [address] Sodium [Moles/Vol] 140 mmol/L Normal 136-145 [facility] Comment on above: Performed By: #### L 500.2500 #### [facility] [address] [place], [address] T PROT 6.9 g/dL Normal 6.4-8.2 [facility] Comment on above: Performed By: #### L 500.2500 #### [facility] [address] [place], [address] Urea nitrogen [Mass/Vol] 22 mg/dL High 7-18 [facility] Comment on above: Performed By: #### L 500.2500 #### [facility] [address] [place], [address] L. pneumophila Ag Ql (U)Orde red By: Chantelle Chavarria on 08-29-2024 Legionella Antigen [facility] Laboratory - Chemistry and C hemistry - challengeOrdered By: Chantelle Chavarria on 08-29-2024 AST [Catalytic activity/Vol] 15 U/L 15-37 [facility] Legionella Antigen Urineon 0 08-29-2024 LEGU URINE, RANDOM Legionella Antigen result interpretation: L pneumo Ag Ur Ql Negative Presumptive negative for Legionella pneumophila serogroup 1 antigen in urine, suggesting no recent or current infection. Legionella Ag, Urine Negative (See interpretation below) Normal [facility] Comment on above: Performed By: #### M 300.4500, M300.4600 ####[facility] [address] [place], [address] M8200.1000on 08-29-2024 M8200.1000 Normal Reference Ran ge = Negative MRSA DNA Nose Ql GIANNI+probe GeneXpert Instrument, PCR method MRSA PCR MRSA NEGATIVE Normal [facility] Comment on above: Performed By: #### M 8200.1000 ####[facility] [address] [place], [address] MR/CON.PCM.GIon 08-29-2024 MR/CON.PCM.GI [facility] Medical Records Department [address] [place] [address] Consultation - GI 08/29/24 1700 MR#: [id number] Acct: [id number] Name: SALLY AYALA Rep #: [id number] : 1950 73 From: Jadon Friend DO PCP: Dr. Justin Bolden MD Status:ADM IN Location: MS3 [id number] HPI Consult Data Date of Consult: 08/29/24 HPI Narrative Reason for Consultation: Aspiration PNA and dysphagia HPI Narrative: SALLY AYALA, is a 73 F who presented to the ED with worsening shortness of breath and hypoxia. I saw her previous admission when she came in for similar presentation. She has a past medical history of chronic COPD w/ Chronic Hypoxic Respiratory Failure (2-3L NC). Workup in the ED included T98.2, heart rate 83, BP 136/84, respiratory rate 21, 91% on 4.5 L nasal cannula, CBC with WBC 30.1, hemoglobin 11.5, MCV 97.8 without differential performe CMP with potassium 3.4, BUN/creatinine 22/1.11, chest x-ray right basilar consolidation with probable small right effusion CT head with no acute intracranial abnormality with atrophy and chronic small vessel ischemic changes CT thoracic spine with no acute osseous abnormality with multilevel partial vertebral body ankylosis and mild multilevel degenerative changes CT lumbar spine with no acute osseous abnormality with moderate multilevel degenerative changes CT abdomen and pelvis right middle and lower lobe consolidation concerning for multifocal pneumonia, small right basilar effusion, small hiatal hernia, dilated esophagus with extensive debris with recommended correlation for aspiration pneumonia. I performed an upper endoscopy with her several months ago was displayed : LA Grade C (one or more mucosal breaks continuous between tops of 2 or more mucosal folds, less than 75% circumference) esophagitis with no bleeding was found 34 to 42 cm from the incisors. Biopsies were taken with a cold forceps for histology. Verification of patient identification for the specimen was done. Estimated blood loss was minimal. Abnormal motility was noted in the esophagus. The cricopharyngeus was abnormal. There are extra peristaltic waves in the esophageal body. The distal esophagus/lower esophageal sphincter is spastic, but gives up passage to the endoscope. Primary peristaltic waves are noted. guidewire was placed and the scope was withdrawn. Dilation was performed with a Savary dilator with no resistance at 54 Fr. The dilation site was examined and showed moderate mucosal disruption. Hematin (altered blood/bmhyze-janxdz-wv ke material) was found in the cardia, in the gastric fundus and in the gastric body. Localized mild inflammation characterized by erosions and erythema was found at the pylorus. No gross lesions were noted in the first portion of the duodenum. Impression: - LA Grade C reflux esophagitis with no bleeding. Biopsied. - Abnormal esophageal motility, suspicious for achalasia. Dilated. - Hematin (altered blood/gwfhcx-xwybsf-cg ke material) in the gastric fundus, in the gastric body and in the cardia. - Gastritis. - No gross lesions in the first portion of the duodenum. [facility] Medical History Diabetes mellitus, type 2 Chronic hypoxic respiratory failure, on home oxygen therapy Morbid obesity CKD (chronic kidney disease), stage III Sleep apnea Nonischemic cardiomyopathy Essential (primary) hypertension LBBB (left bundle branch block) COPD (chronic obstructive pulmonary disease) Hyperlipidemia Nicotine abuse Atherosclerotic heart disease of [place] coronary artery without angina pectoris Bronchitis Home Medications ???Medication ???Instructions ???Recorded ???Last Taken ???Type albuterol sulfate 90 mcg/actuation 2 puff inhalation Q4H PRN Unknown History aerosol inhaler SHORTNESS OF BREATH/WHEEZING aspirin 81 mg tablet,delayed 81 mg PO DAILY HEART HEALTH 08/28/24 10:00 History release imipramine HCl 25 mg tablet 25 - 50 mg PO QHS BLADDER CONTROL 10/02/16 08/27/24 22:00 History simvastatin 40 mg tablet 40 mg PO QHS CHOLESTEROL 10/02/16 08/27/24 22:00 History Nebulizer machine #1 ea 09/15/23 Unknown Rx bupropion HCl 300 mg 24 hr tablet, 300 mg PO DAILY mental health 08/28/24 10:00 History extended release carvedilol 25 mg tablet 25 mg PO Q12H HEART 10/12/2308/28 10:00 History amlodipine 10 mg tablet 10 mg PO DAILY blood pressure #30 10/14/23 08/28/24 10:00 Rx tabs cholecalciferol (vitamin D3) 25 25 mcg PO DAILY vitamin 03/08/24 U nknown History mcg (1,000 unit) capsule fluticasone fur. 200 mcg-umeclid 1 inh inhalation DAILY breathing 0 03/08/24 Unknown Rx 62.5 mcg-vilant 25 mcg #60 ea inhalat.powder (Trelegy Ellipta) ipratropium 20 mcg-albuterol 100 (more content not included)... Normal [facility] MRSA DNA GIANNI+probe Ql (Nose) Ordered By: Chantelle Chavarria on 08-29-2024 MRSA (PCR) [facility] Modified Barium Swallow Stud yon 08-29-2024 Modified Barium Swallow Study [facility] Speech Pathology [address] [place] [address] Modified Barium Swallow Study MR#: [id number] Acct: [id number] Name: SALLY AYALA Rep #: [id number] : 1950 73 From: Jenniecarlyle Hood Modified Barium Swallow Patient Information Study Date: 08/29/24 Study Time: 10:00 Direct Billable Minutes: 120 Total Minutes procedure reportin Diagnosis: J18.9 - Pneumonia, J96.21 - Respiratory failure w/ hypoxia Referring Physician: Blaise العلي Medical History: The patient is a 73-year-old female with a history of type 2 diabetes mellitus, chronic kidney disease (stage III), morbid obesity, obstructive sleep apnea (on nightly oxygen), chronic hypoxic respiratory failure (requiring 2-3L nasal cannula), COPD, hypertension, hyperlipidemia, nonischemic cardiomyopathy, and chronic anemia. She presented to the [facility] Emergency Department on 08/28/2024 with worsening fatigue, malaise, dyspnea, nausea, vomiting, and progressive weakness, leading to multiple falls. Imaging revealed right basilar consolidation with a probable small pleural effusion on chest X-ray, and CT findings concerning for multifocal pneumonia with suspected aspiration. Prior EGD (March 2024) showed LA Grade C reflux esophagitis, abnormal esophageal motility suggestive of achalasia, gastritis, and hematin in the stomach. Given concerns for aspiration pneumonia, Speech Therapy was consulted, and a bedside swallow evaluation was deferred in favor of an immediate modified barium swallow study. Current Diet Ordered: NPO Mental Status: WNL Respiratory Status: Oxygenating on 4L/M nasal cannula Penetration-Aspiration Scale Penetration-Aspiration Scale: OBJECTIVE ASSESSMENT OF SWALLOW FUNCTION (QUANTITATIVE ??? PER TRIAL): PENETRATION / ASPIRATION SCALE (PAREDES): 1 = does not enter airway 2 = enters airway/above vocal folds/ejected 3 = enters airway/above vocal folds/not ejected 4 = enters airway/contacts vocal folds/ejected 5 = enters airway/contacts vocal folds/not ejected 6 = enters airway/below vocal folds/ejected 7 = enters airway/below vocal folds/not ejected despite effort 8 = enters airway/below vocal folds/no effort VIDEOFLOROSCOPIC SCALE SCORE (PAREDES): Grade I = aspiration of material that has penetrated into the laryngeal vestibule, intact cough reflex Grade II = aspiration < 10 % of the bolus, intact cough reflex Grade III = aspiration of < 10 % of the bolus, reduced cough reflex or aspiration of > 10 % of the bolus, intact cough reflex Grade IV = aspiration of > 10 % of the bolus, reduced cough reflex Penetration-Aspiration Scale Score Thin Liquid via teaspoon: Result: 1= does not enter airway Thin Liquid via small single sip: cup: Result: 1= does not enter airway Thin Liquid via small single sip: cup Trial 2: Result: 1= does not enter airway [place] Thick Liquid via small single sip: cup: Result: 1= does not enter airway Honey Thick Liquid via small single sip: cup: Result: 1= does not enter airway Pudding: Result: 1= does not enter airway Cookie: Result: 1= does not enter airway Barium Tablet: Result: 1= does not enter airway Thin Liquid via sequential sips: cup: Result: 2= enter airway/above vocal folds/ejected Oral Phase Labial Seal: No Labial Escape Tongue Control During Bolus Hold: Escape to lateral buccal cavity/floor of mouth Bolus Preparation/Masticatio n: Timely and efficient chewing and mashing Bolus Transport/Lingual Motion: Brisk tongue motion Oral Residue: Trace residue lining oral structures Pharyngeal Phase Initiation of Pharyngeal Swallow: Bolus head in pyriforms Soft Palate Elevation: No bolus between soft palate and pharyngeal wall Laryngeal Elevation: Partial superior movement thyroid cart/partial apprx aryt-epig petiole Anterior Hyoid Excursion: Partial anterior movement Epiglottic Movement: Complete inversion Laryngeal Vestibule Closure at Height of Swallow: Incomplete; narrow column of air/contrast in laryngeal vestibule Pharyngeal Stripping Wave: Present - diminished Pharyngoesophageal Segment Opening: Parital distension and partial duration; parital obstruction of flow Tongue Base Retraction: Narrow column of contrast between tongue base post. pharyngeal wall Pharyngeal Residue: Collection of residue within or on pharyngeal structures Esophageal Phase Esophageal Clearance: Esophageal retention w/ retrograde flow below pharyngoesophageal seg. Diagnosis/Impression Diagnosis: PHARYNGOESOPHAGEAL DYSPHAGIA R13.14 Impression: No aspiration was observed during the study. The oral phase was adequate, though occasional oral residue spilled into the vallecula, which the patient independently cleared with multiple swallows. The primary deficits were pharyngoesophageal, with poor UES opening leading to incomplete clearance of liquids and pharyngeal residue in the pyriform sinuses. Significant re (more content not included)... Normal [facility] RESPIRATORY PANEL MOLECULARo n 08-29-2024 RP PANEL ADENOVIRUS Not Detected INFLUENZA A Not Detected INFLUENZA A (SUBTYPE H1) Not Detected INFLUENZA A (SUBTYPE H3) Not Detected INFLUENZA B Not Detected HUMAN METAPHNEUMO Not Detected PARAINFLUENZA 1 Not Detected PARAINFLUENZA 2 Not Detected PARAINFLUENZA 3 Not Detected PARAINFLUENZA 4 Not Detected RHINOVIRUS Not Detected RSV A Not Detected RSV B Not Detected Normal [facility] Comment on above: Performed By: #### M 100.638 ####[facility] [id number] [place], [place], [id number] Respiratory pathogens DNA an d RNA panel GIANNI+probe (Resp)Ordered By: [facility] on 08-29-2024 Respiratory Panel (PCR) [facility] Serum globulin measurementOr dered By: [facility] on 08-29-2024 Globulin (S) [Mass/Vol] 4.3 g/dL High 2.2-4.2 [facility] Serum or plasma alanine atkins otransferase (ALT) measurementOrdered By: [facility] on 08-29-2024 ALT [Catalytic activity/Vol] 22 U/L 13-56 [facility] Serum or plasma albumin nikunj urement (mass/volume)Ordered By: [facility] on 08-29-2024 Albumin [Mass/Vol] 2.6 g/dL Low 3.2-5.0 [facility] Serum or plasma alkaline alix sphatase measurementOrdered By: [facility] on 08-29-2024 ALP [Catalytic activity/Vol] 72 U/L 45-117 [facility] Strep pneumoniae Antig(UR,CS F)on 08-29-2024 STPAG URINE INTERPRETATION Strep pneumoniae Antig(UR,CSF) Strep pneumoniae Antig(UR,CSF) Negative Urine Presumptive negative for pneumococcal pneumonia, suggesting no current or recent pneumococcal infection. Infection due to S pneumoniae cannot be ruled out since the antigen present in the sample may be below the detection limit of the test. Strep pneumo Test Negative URINE (See interpretation below) Normal [facility] Comment on above: Performed By: #### M 300.4500, M300.4600 ####[facility] [id number] [facility] [place], [address] Streptococcus pneumoniae ant igen assayOrdered By: Chantelle Chavarria on 08-29-2024 Streptococcus pneumoniae Antigen (M [facility] Total proteinOrdered By: Aut umangeli Chavarria on 08-29-2024 Protein [Mass/Vol] 6.9 g/dL 6.4-8.2 [facility] 12 Lead EKGon 08-28-2024 12 Lead EKG [facility] Cardi[facility] Services [address] [place] [address] 12 Lead EKG 08/28/242037 MR#: [id number] Acct: [id number] Name: SALLY AYALA Rep #: [id number] : 1950 73 From: Robert Etienne MD Attending Dr: Dr. Blaise العلي DO Status: A DM IN Ordering Dr: Jackson Negrete DO Date: 08/28/24 [place] [facility]: F C Admitted: 08/28/24 Test Reason : SOB Blood Pressure : */* mmHG Vent. Rate : 83 BPM Atrial Rate : 83 BPM P-R Int : 194 ms QRS Dur : 74 ms QT Int : 388 ms P-R-T Axes : 53 -29 44 degrees QTcB Int : 455 ms Normal sinus rhythm Low voltage QRS Borderline ECG Confirmed by Robert Etienne ([id number]), editor department VANDANA ALVARADO ([id number]) on 08/29/2024 10:33:56 AM Referred By: Jackson Negrete Confirmed By: Robert Etienne 08/29/24 1033 Date Robert Etienne MD CC: Dr. Blaise العلي DO; Dr. Justin Bolden MD; Dr. Jackson Negrete DO Signed Normal [facility] Abdomen/Pelvis without Conto n 08-28-2024 Abdomen/Pelvis without Cont [facility] Imaging Services [address] [place] [address] Abdomen/Pelvis without Cont MR#: [id number] Acct: [id number] Name: SALLY AYALA Rep #: [id number] : 1950 F 73 From: Niles Anaya PCP: Dr. Justin Bolden MD Status: REG ER Study: Abdomen/Pelvis without Cont Date of Exam: 08/07 09/27 Exam# [id number] Ordering Dr: Jackson Negrete DO PROCEDURE: CT abdomen pelvis without IV contrast REASON FOR EXAM: Nausea, vomiting TECHNIQUE: Multiple contiguous axial images through the abdomen and pelvis were obtained without the administration of intravenous contrast. Two-dimensional coronal and sagittal reformatted images were reconstructed. Low-dose imaging technique was utilized. COMPARISON: None. FINDINGS: Small right pleural effusion. Airspace consolidations in the right middle and right lower lobes. Small hiatal hernia. Distended esophagus containing extensive debris. Unenhanced liver, spleen, pancreas and right adrenal gland are intact. Nodular thickening of the left adrenal gland. Gallbladder is not visualized. No significant biliary ductal dilation. Punctate left renal hilar calcification which may relate to a vascular calcification or nonobstructing calculus. Small left renal cyst. No hydronephrosis. Urinary bladder is grossly intact. No bowel obstruction, focal bowel wall thickening or significant perienteric inflammation. Appendix is not visualized. No pelvic free fluid. No free air. Calcified nonaneurysmal abdominal aorta. No suspicious adenopathy. Superficial soft tissues are without acute abnormality. No acute osseous abnormality. Degenerative changes of the spine and left hip. Right hip prosthesis. CT/Abdomen/Pelvis without Cont IMPRESSION: 1. Right middle and lower lobe consolidations concerning for multifocal pneumonia. Recommend imaging follow-up after medical management to ensure resolution. 2. Small right basilar effusion. 3. Small hiatal hernia. Dilated esophagus with extensive debris throughout. Correlate for aspiration pneumonia. One or more dose reduction techniques were used (e.g., Automated exposure control, adjustment of the mA and/or kV according to patient size, use of iterative reconstruction technique). Reading Location: [facility] CC: Dr. Justin Bolden MD; Dr. Jackson Negrete DO Bundle Collector: Signed Normal [facility] Brain/Head without Contrasto n 08-28-2024 Brain/Head without Contrast [facility] Imaging Services [address] [place], [place] [address] Brain/Head without Contrast MR#: [id number] Acct: [id number] Name: SALLY AYALA Rep #: [id number] : 1950 F 73 From: Niles Anaya PCP: Dr. Justin Bolden MD Status: REG ER Study: Brain/Head without Contrast Date of Exam: 08/07 09/27 Exam# [id number] Ordering Dr: Jackson Negrete DO EXAM: CT brain without IV contrast CLINICAL HISTORY: Pain, trauma COMPARISON: 10/12/2023 TECHNIQUE: Multiple contiguous axial images through the abdomen and pelvis were obtained without the administration of intravenous contrast. Two-dimensional coronal and sagittal reformatted images were reconstructed. Low-dose imaging technique was utilized. FINDINGS: No evidence of acute intracranial hemorrhage, midline shift or mass effect. No definite CT evidence of acute territorial cortical infarction. No hydrocephalus. Moderate generalized cerebral atrophy and chronic small- vessel ischemic changes. No depressed calvarial fracture. Paranasal sinuses and mastoid air cells are clear. CT/Brain/Head without Contrast IMPRESSION: 1. No acute intracranial abnormality. 2. Atrophy and chronic small-vessel ischemic changes. Reading Location: [facility] CC: Dr. Justin Bolden MD; Dr. Jackson Negrete DO Bundle Collector: Signed Normal [facility] CBC-Complete Blood Cnt No Di ffon 08-28-2024 WBC (Bld) [#/Vol] 30.1 10*3/uL Invalid Interpretation Code 4.4-11.0 [facility] Comment on above: Result Comment: CRIT ICAL VALUE CALLED TO MMARTIN 08/28/242102 Justin Ahn. RESULTS READ BACK BY SAME. Performed By: #### L 501.2450, L501.4020, L100.0500, L500.4050 #### [facility] [address] [place], [address] Erythrocyte distribution width (RBC) [Ratio] 13.0 % Normal 11.6-14.6 [facility] Comment on above: Performed By: #### L 501.2450, L501.4020, L100.0500, L500.4050 #### [facility] [address] [place], [address] Hematocrit (Bld) [Volume fraction] 35.1 % Low 37-47 [facility] Comment on above: Performed By: #### L 501.2450, L501.4020, L100.0500, L500.4050 #### [facility] [address] [place], [address] Hemoglobin (Bld) [Mass/Vol] 11.5 g/dL Low 12.0-15.0 [facility] Comment on above: Performed By: #### L 501.2450, L501.4020, L100.0500, L500.4050 #### [facility] [address] [place], [address] MCH (RBC) [Entitic mass] 32.0 pg Normal 27.0-32.0 [facility] Comment on above: Performed By: #### L 501.2450, L501.4020, L100.0500, L500.4050 #### [facility] [address] [place], [address] MCHC (RBC) [Mass/Vol] 32.8 g/dL Normal 32-36 [facility] Comment on above: Performed By: #### L 501.2450, L501.4020, L100.0500, L500.4050 #### [facility] [address] [place], [address] MCV (RBC) [Entitic vol] 97.8 fL Normal 81-99 [facility] Comment on above: Performed By: #### L 501.2450, L501.4020, L100.0500, L500.4050 #### [facility] [address] [place], [address] Platelet mean volume (Bld) [Entitic vol] 11.8 fL Normal 6.2-12.0 [facility] Comment on above: Performed By: #### L 501.2450, L501.4020, L100.0500, L500.4050 #### [facility] [address] [place], [address] Platelets (Bld) [#/Vol] 195 10*3/uL Normal 150-450 [facility] Comment on above: Performed By: #### L 501.2450, L501.4020, L100.0500, L500.4050 #### [facility] [address] [place], [address] RBC (Bld) [#/Vol] 3.59 10*6/uL Low 4.2-5.4 [facility] Comment on above: Performed By: #### L 501.2450, L501.4020, L100.0500, L500.4050 #### [facility] [address] [place], [address] RDW SD 46.1 fl High 35.1-43.9 [facility] Comment on above: Performed By: #### L 501.2450, L501.4020, L100.0500, L500.4050 #### [facility] [address] [place], [address] Chest 1 View (Portable)on Chest 1 View (Portable) [facility] Imaging Services [address] [place] [address] Chest 1 View (Portable) MR#: [id number] Acct: [id number] Name: SALLY AYALA Rep #: [id number] : 1950 F 73 From: Niles Anaya PCP: Dr. Justin Bolden MD Status: REG ER Study: Chest 1 View (Portable) Date of Exam: 08/28/24 Exam# [id number] Ordering Dr: Jackson Negrete DO PROCEDURE: Chest radiograph REASON FOR EXAM: Cough TECHNIQUE: Frontal view of the chest COMPARISON: 03/24/2024 FINDINGS: Mild cardiomegaly. Right basilar airspace consolidations. Left lung is clear. Possible small right pleural effusion. No sizable pneumothorax. RAD/Chest 1 View (Portable) IMPRESSION: Right basilar consolidation with probable small right effusion. Reading Location: [facility] CC: Dr. Justin Bolden MD; Dr. Jackson Negrete DO Bundle Collector: Signed Normal [facility] Comprehensive Metabolic Prof ilon 08-28-2024 Albumin [Mass/Vol] 2.8 g/dL Low 3.2-5.0 [facility] Comment on above: Order Comment: 'TROP ' Serial specimen #1, #2 or #3: 1 Performed By: #### L 501.2450, L501.4020, L100.0500, L500.4050 #### [facility] [address] [place], [address] Albumin/Globulin [Mass ratio] 0.7 {ratio} Low 0.9-2.4 [facility] Comment on above: Order Comment: 'TROP ' Serial specimen #1, #2 or #3: 1 Performed By: #### L 501.2450, L501.4020, L100.0500, L500.4050 #### [facility] [address] [place], [address] ALK P 76 U/L Normal 45-117 [facility] Comment on above: Order Comment: 'TROP ' Serial specimen #1, #2 or #3: 1 Performed By: #### L 501.2450, L501.4020, L100.0500, L500.4050 #### [facility] [address] [place], [address] ALT [Catalytic activity/Vol] 25 U/L Normal 13-56 [facility] Comment on above: Order Comment: 'TROP ' Serial specimen #1, #2 or #3: 1 Performed By: #### L 501.2450, L501.4020, L100.0500, L500.4050 #### [facility] [address] [place], [address] AST [Catalytic activity/Vol] 15 U/L Normal 15-37 [facility] Comment on above: Order Comment: 'TROP ' Serial specimen #1, #2 or #3: 1 Performed By: #### L 501.2450, L501.4020, L100.0500, L500.4050 #### [facility] [address] [place], [address] Bilirubin [Mass/Vol] 0.90 mg/dL Normal 0.20-1.00 [facility] Comment on above: Order Comment: 'TROP ' Serial specimen #1, #2 or #3: 1 Result Comment: For patients on eltrombopag therapy, use of Dimension Wendel TBIL is not recommended. Performed By: #### L 501.2450, L501.4020, L100.0500, L500.4050 #### [facility] [address] [place], [address] BUN/CRE 19.8 RATIO Normal 10-20 [facility] Comment on above: Order Comment: 'TROP ' Serial specimen #1, #2 or #3: 1 Performed By: #### L 501.2450, L501.4020, L100.0500, L500.4050 #### [facility] [address] [place], [address] CA,Total 7.3 mg/dL Low 8.5-10.1 [facility] Comment on above: Order Comment: 'TROP ' Serial specimen #1, #2 or #3: 1 Performed By: #### L 501.2450, L501.4020, L100.0500, L500.4050 #### [facility] [address] [place], [address] Chloride [Moles/Vol] 106 mmol/L Normal 98-107 [facility] Comment on above: Order Comment: 'TROP ' Serial specimen #1, #2 or #3: 1 Performed By: #### L 501.2450, L501.4020, L100.0500, L500.4050 #### [facility] [address] [place], [address] CO2 [Moles/Vol] 26.0 mmol/L Normal 21.0-32.0 [facility] Comment on above: Order Comment: 'TROP ' Serial specimen #1, #2 or #3: 1 Performed By: #### L 501.2450, L501.4020, L100.0500, L500.4050 #### [facility] [address] [place], [address] Creatinine [Mass/Vol] 1.11 mg/dL High 0.55-1.02 [facility] Comment on above: Order Comment: 'TROP ' Serial specimen #1, #2 or #3: 1 Result Comment: The validity of the calculated GFR GFRAA in patients over 70 years has not been determined. Clinical correlation is essential. Performed By: #### L 501.2450, L501.4020, L100.0500, L500.4050 #### [facility] [address] [place], [address] ECRCL 55.00 ml/min Normal [facility] Comment on above: Order Comment: 'TROP ' Serial specimen #1, #2 or #3: 1 Performed By: #### L 501.2450, L501.4020, L100.0500, L500.4050 #### [facility] [address] [place], [address] EST GFR - AA 62 mL/min Normal >60 [facility] Comment on above: Order Comment: 'TROP ' Serial specimen #1, #2 or #3: 1 Result Comment: Afri can Swazi GFR Calc Performed By: #### L 501.2450, L501.4020, L100.0500, L500.4050 #### [facility] [address] [place], [address] GAP 8 Normal 5-15 [facility] Comment on above: Order Comment: 'TROP ' Serial specimen #1, #2 or #3: 1 Performed By: #### L 501.2450, L501.4020, L100.0500, L500.4050 #### [facility] [address] [place], [address] GFR/1.73 sq M.predicted among non-blacks MDRD (S/P/Bld) [Vol rate/Area] 51 mL/min/{1.73_m2} Low >60 [facility] Comment on above: Order Comment: 'TROP ' Serial specimen #1, #2 or #3: 1 Result Comment: Non- GFR Calc Performed By: #### L 501.2450, L501.4020, L100.0500, L500.4050 #### [facility] [address] [place], [address] Globulin (S) [Mass/Vol] 4.3 g/dL High 2.2-4.2 [facility] Comment on above: Order Comment: 'TROP ' Serial specimen #1, #2 or #3: 1 Performed By: #### L 501.2450, L501.4020, L100.0500, L500.4050 #### [facility] [address] [place], [address] Glucose [Mass/Vol] 152 mg/dL High 74-106 [facility] Comment on above: Order Comment: 'TROP ' Serial specimen #1, #2 or #3: 1 Result Comment: Fast ing Glucose result greater than or equal to 126 mg/dL suggests DIABETES MELLITUS per A.D.A. criteria. Performed By: #### L 501.2450, L501.4020, L100.0500, L500.4050 #### [facility] [address] [place], [address] Potassium [Moles/Vol] 3.4 mmol/L Low 3.5-5.1 [facility] Comment on above: Order Comment: 'TROP ' Serial specimen #1, #2 or #3: 1 Performed By: #### L 501.2450, L501.4020, L100.0500, L500.4050 #### [facility] [address] [place], [address] Sodium [Moles/Vol] 140 mmol/L Normal 136-145 [facility] Comment on above: Order Comment: 'TROP ' Serial specimen #1, #2 or #3: 1 Performed By: #### L 501.2450, L501.4020, L100.0500, L500.4050 #### [facility] [address] [place], [address] T PROT 7.1 g/dL Normal 6.4-8.2 [facility] Comment on above: Order Comment: 'TROP ' Serial specimen #1, #2 or #3: 1 Performed By: #### L 501.2450, L501.4020, L100.0500, L500.4050 #### [facility] [address] [place], [address] Urea nitrogen [Mass/Vol] 22 mg/dL High 7-18 [facility] Comment on above: Order Comment: 'TROP ' Serial specimen #1, #2 or #3: 1 Performed By: #### L 501.2450, L501.4020, L100.0500, L500.4050 #### [facility] [address] [place], [address] Emergency Department Summary on 08-28-2024 Emergency Department Summary [facility] Medical Records Department [address] [place] [address] Emergency Department Summary 08/28/24 MR#: [id number] Acct: [id number] Name: SALLY AYALA Rep #: [id number] : 1950 73 From: Jackson Negrete DO PCP: Dr. Justin Bolden MD Status:REG ER Location: ED HPI History of Present Illness Chief Complaint: Shortness of Breath [facility] Medical History Chronic hypoxic respiratory failure, on home oxygen therapy Morbid obesity CKD (chronic kidney disease), stage III Sleep apnea Nonischemic cardiomyopathy Essential (primary) hypertension LBBB (left bundle branch block) COPD (chronic obstructive pulmonary disease) Hyperlipidemia Nicotine abuse Atherosclerotic heart disease of [place] coronary artery without angina pectoris Bronchitis Home Medications ???Medication ???Instructions ???Recorded ???Last Taken ???Type albuterol sulfate 90 mcg/actuation 2 puff inhalation Q4H PRN Unknown History aerosol inhaler SHORTNESS OF BREATH/WHEEZING aspirin 81 mg tablet,delayed 81 mg PO DAILY HEART HEALTH 03/18/23 History release imipramine HCl 25 mg tablet 25 - 50 mg PO QHS BLADDER CONTROL 10/02/16 03/18/23 History simvastatin 40 mg tablet 40 mg PO QHS CHOLESTEROL 10/02/16 03/18/23 History Nebulizer machine #1 ea 09/15/23 Unknown Rx bupropion HCl 300 mg 24 hr tablet, 300 mg PO DAILY mental health Unknown History extended release carvedilol 25 mg tablet 25 mg PO Q12H HEART 10/12/23 Unkno wn History amlodipine 10 mg tablet 10 mg PO DAILY blood pressure #30 10/14/23 Unknown Rx tabs cholecalciferol (vitamin D3) 25 25 mcg PO DAILY vitamin 03/08/24 U nknown History mcg (1,000 unit) capsule fluticasone fur. 200 mcg-umeclid 1 inh inhalation DAILY breathing 0 03/08/24 Unknown Rx 62.5 mcg-vilant 25 mcg #60 ea inhalat.powder (Trelegy Ellipta) ipratropium 20 mcg-albuterol 100 1 puff inhalation BID 03/08/24 Unk nown History mcg/actuation mist for inhalation (Combivent Respimat) metformin 1,000 mg tablet 1,000 mg PO BID 03/08/24 Unknown H istory apixaban 5 mg tablet (Eliquis) 5 mg PO BID 30 days #60 tabs 03/29 Unknown Rx doxycycline monohydrate 100 mg 100 mg PO BID 3 days #6 caps 03/29 Unknown Rx capsule furosemide 40 mg tablet 40 mg PO DAILY #7 tabs 03/29/24 Un known Rx pantoprazole 40 mg tablet,delayed 40 mg PO BID 30 days #60 tabs Unknown Rx release prednisone 10 mg tablet 40 mg (4 x 10 mg) PO BREAKFAST #18 03/29/24 Unknown Rx tabs lisinopril 40 mg tablet 40 mg PO BID #180 TABLETS 08/03/24 Unknown Rx Allergy/AdvReac Type Severity Reaction Status Date / Time Iodinated Contrast Media Allergy Other Verified 08/28/24 20:02 (CONTRASTS) meperidine (From Demerol) Allergy Unknown Verified 08/28/24 20:02 Penicillins (PCN) Allergy Rash Verified 08/28/24 20:02 Family History Mother Hypertension Diabetes Father Cancer Surgical History History of colonoscopy with polypectomy History of total hip arthroplasty History of cholecystectomy History of cataract surgery History of appendectomy History of left heart catheterization (09/03/11) Social History household members: none Smoking Status: Former smoker quit date: 04/04/23 alcohol intake: current substance use type: does not use EXAM Physical Exam Const Vital Signs: 08/28/24 20:04 08/28/24 20:08 08/28/24 20:08 Temperature 98.2 F 98.2 F Temperature Source Oral Oral Pulse Rate 83 83 Respiratory Rate 21 H 21 H Respiratory Effort Short of Breath Respiratory Depth Deep Respiratory Pattern Tachypnea Blood Pressure 136/84 H 136/84 H Blood Pressure Mean 101 101 Pulse Ox 91 91 Oxygen Delivery Method Nasal Cannula Nasal Cannula Nasal Cannula Oxygen Flow Rate (L/min) 4.5 4.5 4.5 08/28/24 20:51 08/28/24 20:51 08/28/24 20:53 Temperature Temperature Source Pulse Rate 85 Respiratory Rate 20 H Respiratory Effort Respiratory Depth Respiratory Pattern Normal Blood Pressure Blood Pressure Mean Pulse Ox 80 96 Oxygen Delivery Method Nasal Cannula Non-Rebreather Oxygen Flow Rate (L/min) 5 15 08/28/24 21:08 08/28/24 22:00 Temperature 98.2 F 98.2 F Temperature Source Oral Oral Pulse Rate 84 88 Respiratory Rate 22 H 20 H Respiratory Effort Respiratory Depth Respiratory Pattern Blood Pressure 129/61 H 135/63 H Blood Pressure Mean 83 87 Pulse Ox 92 88 Oxygen Delivery Method Nasal Cannula Nasal Cannula Oxygen Flow R (more content not included)... Normal [facility] H AND P Exam - [facility] 08-28-2024 H&P Exam - Hospitalist [facility] Medical Records Department [address] [place] [address] H P Exam - Hospitalist 08/28/24 2306 MR#: [id number] Acct: [id number] Name: SALLY AYALA Rep #: [id number] : 1950 73 From: Chantelle Chavarria MD PCP: Dr. Justin Bolden MD Status:ADM IN Location: [place] [address] HPI - General General Date of Admission: 08/28/24 Date of Service: 08/28/24 Chief Complaint: Falls, N/V, hypoxia. HPI Narrative The patient is a 73 y/o F w/ PMHx: Diabetes mellitus type II, JONO using oxygen qHS only, CKD possible stage III unclear subtype, Morbid Obesity, HTN, HLD, Chronic COPD w/ Chronic Hypoxic Respiratory Failure (2-3L NC), Former tobacco use, Nonobstructive CAD/Nonischemic cardiomyopathy, Chronic anemia who presents to the [facility] ED on 08/28/2024 with history of fatigue, malaise, dyspnea in addition to nausea and emesis with worsening weakness with resulting multiple falls prompting eventual ED evaluation to be cautious. Workup in the ED included T98.2, heart rate 83, BP 136/84, respiratory rate 21, 91% on 4.5 L nasal cannula, CBC with WBC 30.1, hemoglobin 11.5, MCV 97.8 without differential performed, CMP with potassium 3.4, BUN/creatinine 22/1.11, GFR 51, hepatic profile not marked appearing, troponin 5, chest x-ray right basilar consolidation with probable small right effusion, CT head with no acute intracranial abnormality with atrophy and chronic small vessel ischemic changes, CT thoracic spine with no acute osseous abnormality with multilevel partial vertebral body ankylosis and mild multilevel degenerative changes, CT lumbar spine with no acute osseous abnormality with moderate multilevel degenerative changes, CT abdomen and pelvis right middle and lower lobe consolidation concerning for multifocal pneumonia, small right basilar effusion, small hiatal hernia, dilated esophagus with extensive debris with recommended correlation for aspiration pneumonia. In the ED patient ministered DuoNeb therapy, Levaquin 750 mg IV x 1 and Zofran 4 mg IV x 1. PFSH Medical History Diabetes mellitus, type 2 Chronic hypoxic respiratory failure, on home oxygen therapy Morbid obesity CKD (chronic kidney disease), stage III Sleep apnea Nonischemic cardiomyopathy Essential (primary) hypertension LBBB (left bundle branch block) COPD (chronic obstructive pulmonary disease) Hyperlipidemia Nicotine abuse Atherosclerotic heart disease of [place] coronary artery without angina pectoris Bronchitis Home Medications ???Medication ???Instructions ???Recorded ???Last Taken ???Type albuterol sulfate 90 mcg/actuation 2 puff inhalation Q4H PRN Unknown History aerosol inhaler SHORTNESS OF BREATH/WHEEZING aspirin 81 mg tablet,delayed 81 mg PO DAILY HEART HEALTH 03/18/23 History release imipramine HCl 25 mg tablet 25 - 50 mg PO QHS BLADDER CONTROL 10/02/16 03/18/23 History simvastatin 40 mg tablet 40 mg PO QHS CHOLESTEROL 10/02/16 03/18/23 History Nebulizer machine #1 ea 09/15/23 Unknown Rx bupropion HCl 300 mg 24 hr tablet, 300 mg PO DAILY mental health Unknown History extended release carvedilol 25 mg tablet 25 mg PO Q12H HEART 10/12/23 Unkno wn History amlodipine 10 mg tablet 10 mg PO DAILY blood pressure #30 10/14/23 Unknown Rx tabs cholecalciferol (vitamin D3) 25 25 mcg PO DAILY vitamin 03/08/24 U nknown History mcg (1,000 unit) capsule fluticasone fur. 200 mcg-umeclid 1 inh inhalation DAILY breathing 0 03/08/24 Unknown Rx 62.5 mcg-vilant 25 mcg #60 ea inhalat.powder (Trelegy Ellipta) ipratropium 20 mcg-albuterol 100 1 puff inhalation BID 03/08/24 Unk nown History mcg/actuation mist for inhalation (Combivent Respimat) metformin 1,000 mg tablet 1,000 mg PO BID 03/08/24 Unknown H istory apixaban 5 mg tablet (Eliquis) 5 mg PO BID 30 days #60 tabs 03/29 Unknown Rx doxycycline monohydrate 100 mg 100 mg PO BID 3 days #6 caps 03/29 Unknown Rx capsule furosemide 40 mg tablet 40 mg PO DAILY #7 tabs 03/29/24 Un known Rx pantoprazole 40 mg tablet,delayed 40 mg PO BID 30 days #60 tabs Unknown Rx release prednisone 10 mg tablet 40 mg (4 x 10 mg) PO BREAKFAST #18 03/29/24 Unknown Rx tabs lisinopril 40 mg tablet 40 mg PO BID #180 TABLETS 08/03/24 Unknown Rx Allergy/AdvReac Type Severity Reaction Status Date / Time Iodinated Contrast Media Allergy Other Verified 08/28/24 20:02 (CONTRASTS) meperidine (From Demerol) Allergy Unknown Verified 08/28/24 20:02 Penicillins (PCN) Allergy Rash Verified 08/28/24 20:02 Family History Mother Hypertension Diabetes Father Cancer Surgical History (more content not included)... Normal [facility] Influenza virus A and B and SARS-CoV-2 (COVID-19) and Respiratory syncytial virus RNAOrdered By: Jackson Negrete on 08-28-2024 SARS-CoV-2 (COVID-19) RNA GIANNI+probe Ql (Unsp spec) [facility] L501.4020on 08-28-2024 TROPONIN-I HS 5 pg/mL Normal 3.0-54.0 [facility] Comment on above: Order Comment: 'TROP ' Serial specimen #1, #2 or #3: 1 Result Comment: Ralph vallejo Note: New Test Units and Gender Specific Reference Ranges. For more information see Policy Stat Procedure Wendel High Sensitivity Troponin (TNIH) and attachments. Performed By: #### L 501.2450, L501.4020, L100.0500, L500.4050 #### [facility] [address] [place], [address] Lipaseon 08-28-2024 Lipase [Catalytic activity/Vol] 27 U/L Low 73-393 [facility] Comment on above: Order Comment: 'TROP ' Serial specimen #1, #2 or #3: 1 Performed By: #### L 501.2450, L501.4020, L100.0500, L500.4050 #### [facility] [address] [place], [address] Lipase measurementOrdered By : Jackson Negrete on 08-28-2024 Lipase [Catalytic activity/Vol] 27 U/L Low 73-393 [facility] M100.678on 08-28-2024 M100.678 SARS-CoV-2 (COVID 19 ) Negative INFLUENZA A Negative INFLUENZA B Negative RSV PCR Negative Normal [facility] Comment on above: Performed By: #### M 100.678 ####[facility] [address] [place], [address] Magnesiumon 08-28-2024 Magnesium [Mass/Vol] 0.7 mg/dL Invalid Interpretation Code 1.6-2.6 [facility] Comment on above: Order Comment: Comme nts: may add to ED labs Result Comment: Crit ical Result(s) Called at: 23:36:11 08/28/2024 by: JUSTIN AHN TO MEDINA ERNANDEZ. Results read back by same. Performed By: #### L 501.080 #### [facility] [address] [place], [address] Magnesium measurementOrdered By: Chantelle Chavarria on 08-28-2024 Magnesium [Mass/Vol] 0.7 mg/dL Low 1.6-2.6 [facility] Comment on above: Critical Result(s) C alled at: 23:36:11 08/28/2024 by: JUSTIN AHN TO MEDINA ERNANDEZ. Results read back by same. Spine Lumbar without Contras ton 08-28-2024 Spine Lumbar without Contrast [facility] [address] [place] [address] Spine Lumbar without Contrast MR#: [id number] Acct: [id number] Name: SALLY AYALA Rep #: [id number] : 1950 F 73 From: Niles Anaya PCP: Dr. Justin Bolden MD Status: REG ER Study: Spine Lumbar without Contrast Date of Exam: Exam# [id number] Ordering Dr: Jackson Negrete DO PROCEDURE: CT lumbar spine without IV contrast REASON FOR EXAM: Pain, trauma. TECHNIQUE: Multiple contiguous axial images through the lumbar spine were obtained without the administration of intravenous contrast. Two-dimensional coronal and sagittal reformatted images were reconstructed. Low-dose imaging technique was utilized. COMPARISON: None. FINDINGS: See impression CT/Spine Lumbar without Contrast IMPRESSION: No acute osseous abnormality. Moderate multilevel degenerative changes. Right hip prosthesis. Severe left hip osteoarthritis. No paraspinal mass. One or more dose reduction techniques were used (e.g., Automated exposure control, adjustment of the mA and/or kV according to patient size, use of iterative reconstruction technique). Reading Location: [facility] CC: Dr. Justin Bolden MD; Dr. Jackson Negrete DO Bundle Collector: Signed Normal [facility] Spine Thoracic without Contr ason 08-28-2024 Spine Thoracic without Contras [facility] [address] [place] [address] Spine Thoracic without Contras MR#: [id number] Acct: [id number] Name: SALLY AYALA Rep #: [id number] : 1950 F 73 From: Niles Anaya PCP: Dr. Justin Bolden MD Status: REG ER Study: Spine Thoracic without Contras Date of Exam: 0 08/28/24 Exam# [id number] Ordering Dr: Jackson Negrete DO PROCEDURE: CT thoracic spine without IV contrast REASON FOR EXAM: Pain, trauma TECHNIQUE: Multiple contiguous axial images through the thoracic spine were obtained without the administration of intravenous contrast. Two-dimensional coronal and sagittal reformatted images were reconstructed. Low-dose imaging technique was utilized. COMPARISON: None FINDINGS: See impression CT/Spine Thoracic without Contras IMPRESSION: No acute osseous abnormality. Multilevel partial vertebral body ankylosis. Mild multilevel degenerative changes. Airspace consolidations in the right middle and right lower lobes concerning for pneumonia. Small hiatal hernia. Diffuse distention of the esophagus containing debris. Correlate for aspiration pneumonia. Coronary artery disease. One or more dose reduction techniques were used (e.g., Automated exposure control, adjustment of the mA and/or kV according to patient size, use of iterative reconstruction technique). Reading Location: [facility] CC: Dr. Justin Bolden MD; Dr. Jackson Negrete DO Bundle Collector: Signed Normal [facility] Troponin IOrdered By: Jackson Negrete on 08-28-2024 Troponin I High Sensitivity 5 pg/mL 3.0-54.0 [facility] Comment on above: Please Note: [place] t Units and Gender Specific Reference Ranges. For more information see Policy Stat Procedure Wendel High Sensitivity Troponin (TNIH) and attachments. Albumin to globulin ratioOrd ered By: Justin Bolden on 08-01-2024 Albumin/Globulin [Mass ratio] 0.7 {ratio} Low 0.9-2.4 [facility] Bilirubin, totalOrdered By: Justin Bolden on 08-01-2024 Bilirubin [Mass/Vol] 0.40 mg/dL 0.20-1.00 [facility] Comment on above: For patients on eltr ombopag therapy, use of Dimension Wendel TBIL is not recommended. Blood urea nitrogen (BUN)/cr eatinine ratioOrdered By: Justin Bolden on 08-01-2024 Urea nitrogen/Creatinine [Mass ratio] 19.1 mg/mg 10-20 [facility] Carbon dioxide measurementOr dered By: Justin Bolden on 08-01-2024 CO2 [Moles/Vol] 24.0 mmol/L 21.0-32.0 [facility] Chloride measurementOrdered By: Justin Bolden on 08-01-2024 Chloride [Moles/Vol] 105 mmol/L 98-107 [facility] Comprehensive Metabolic Prof ilon 08-01-2024 Albumin [Mass/Vol] 2.9 g/dL Low 3.2-5.0 [facility] Comment on above: Performed By: #### L 501.2450, L501.4020, L100.0500, L500.4050 #### [facility] [address] [place], [address] Albumin/Globulin [Mass ratio] 0.7 {ratio} Low 0.9-2.4 [facility] Comment on above: Performed By: #### L 501.2450, L501.4020, L100.0500, L500.4050 #### [facility] [address] [place], [address] ALK P 92 U/L Normal 45-117 [facility] Comment on above: Performed By: #### L 501.2450, L501.4020, L100.0500, L500.4050 #### [facility] [address] [place], [address] ALT [Catalytic activity/Vol] 30 U/L Normal 13-56 [facility] Comment on above: Performed By: #### L 501.2450, L501.4020, L100.0500, L500.4050 #### [facility] [address] [place], [address] AST [Catalytic activity/Vol] 26 U/L Normal 15-37 [facility] Comment on above: Performed By: #### L 501.2450, L501.4020, L100.0500, L500.4050 #### [facility] [address] [place], [address] Bilirubin [Mass/Vol] 0.40 mg/dL Normal 0.20-1.00 [facility] Comment on above: Result Comment: For patients on eltrombopag therapy, use of Dimension Wendel TBIL is not recommended. Performed By: #### L 501.2450, L501.4020, L100.0500, L500.4050 #### [facility] [address] [place], [address] BUN/CRE 19.1 RATIO Normal 10-20 [facility] Comment on above: Performed By: #### L 501.2450, L501.4020, L100.0500, L500.4050 #### [facility] [address] [place], [address] CA,Total 8.3 mg/dL Low 8.5-10.1 [facility] Comment on above: Performed By: #### L 501.2450, L501.4020, L100.0500, L500.4050 #### [facility] [address] [place], [address] Chloride [Moles/Vol] 105 mmol/L Normal 98-107 [facility] Comment on above: Performed By: #### L 501.2450, L501.4020, L100.0500, L500.4050 #### [facility] [address] [place], [address] CO2 [Moles/Vol] 24.0 mmol/L Normal 21.0-32.0 [facility] Comment on above: Performed By: #### L 501.2450, L501.4020, L100.0500, L500.4050 #### [facility] [address] [place], [address] Creatinine [Mass/Vol] 1.10 mg/dL High 0.55-1.02 [facility] Comment on above: Result Comment: The validity of the calculated GFR GFRAA in patients over 70 years has not been determined. Clinical correlation is essential. Performed By: #### L 501.2450, L501.4020, L100.0500, L500.4050 #### [facility] [address] [place], [address] EST GFR - AA 63 mL/min Normal >60 [facility] Comment on above: Result Comment: Afri can Swazi GFR Calc Performed By: #### L 501.2450, L501.4020, L100.0500, L500.4050 #### [facility] [address] [place], [address] GAP 12 Normal 5-15 [facility] Comment on above: Performed By: #### L 501.2450, L501.4020, L100.0500, L500.4050 #### [facility] [address] [place], [address] GFR/1.73 sq M.predicted among non-blacks MDRD (S/P/Bld) [Vol rate/Area] 52 mL/min/{1.73_m2} Low >60 [facility] Comment on above: Result Comment: Non- GFR Calc Performed By: #### L 501.2450, L501.4020, L100.0500, L500.4050 #### [facility] [address] [place], [address] Globulin (S) [Mass/Vol] 4.3 g/dL High 2.2-4.2 [facility] Comment on above: Performed By: #### L 501.2450, L501.4020, L100.0500, L500.4050 #### [facility] [address] [place], [address] Glucose [Mass/Vol] 139 mg/dL High 74-106 [facility] Comment on above: Result Comment: Fast ing Glucose result greater than or equal to 126 mg/dL suggests DIABETES MELLITUS per A.D.A. criteria. Performed By: #### L 501.2450, L501.4020, L100.0500, L500.4050 #### [facility] [address] [place], [address] Potassium [Moles/Vol] 3.6 mmol/L Normal 3.5-5.1 [facility] Comment on above: Performed By: #### L 501.2450, L501.4020, L100.0500, L500.4050 #### [facility] [address] [place], [address] Sodium [Moles/Vol] 141 mmol/L Normal 136-145 [facility] Comment on above: Performed By: #### L 501.2450, L501.4020, L100.0500, L500.4050 #### [facility] [address] [place], [address] T PROT 7.2 g/dL Normal 6.4-8.2 [facility] Comment on above: Performed By: #### L 501.2450, L501.4020, L100.0500, L500.4050 #### [facility] [address] [place], [address] Urea nitrogen [Mass/Vol] 21 mg/dL High 7-18 [facility] Comment on above: Performed By: #### L 501.2450, L501.4020, L100.0500, L500.4050 #### [facility] [address] [place], [address] Estimated glomerular filtrat ion rate (GFR) AmericanOrdered By: Justin Bolden on 08-01-2024 Estimated GFR (MDRD) Amer 63 mL/min >60 [facility] Comment on above: GFR Calc Glomerular filtration rate ( GFR) estimationOrdered By: Justin Bolden on 08-01-2024 Estimated GFR (MDRD) Non-Af Amer 52 mL/min Low >60 [facility] Comment on above: Non- GFR Calc Glucose measurementOrdered B y: Justin Bolden on 08-01-2024 Glucose [Mass/Vol] 139 mg/dL High 74-106 [facility] Comment on above: Fasting Glucose resu lt greater than or equal to 126 mg/dL suggests DIABETES MELLITUS per A.D.A. criteria. Hemoglobin A1con 08-01-2024 HbA1c (Bld) [Mass fraction] 5.8 % High 3.8-5.6 [facility] Comment on above: Result Comment: Norm al < 5.7 % Prediabetic 5.7 - 6.4 % Diabetic >or= 6.5 % Please note range changes. Performed By: #### L 501.2450, L501.4020, L100.0500, L500.4050 #### [facility] [place], [address] Hemoglobin A1c percentageOrd ered By: Justin Bolden on 08-01-2024 HbA1c (Bld) [Mass fraction] 5.8 % High 3.8-5.6 [facility] Comment on above: Normal < 5.7 % Predi abetic 5.7 - 6.4 % Diabetic >or= 6.5 % Please note range changes. High density lipoprotein (HD L) measurementOrdered By: Justin Bolden on 08-01-2024 Cholesterol in HDL [Mass/Vol] 53 mg/dL >40 [facility] Comment on above: The drugs N-Acetylcy steine and Metamizole may falsely depress this assay. Reference Range HDL <40 mg/dL Low HDL Cholesterol HDL >or= 60 mg/dL High HDL Cholesterol Laboratory - Chemistry and C hemistry - challengeOrdered By: Justin Bolden on 08-01-2024 AST [Catalytic activity/Vol] 26 U/L 15-37 [facility] Lipid Profileon 08-01-2024 Cholesterol [Mass/Vol] 141 mg/dL Normal 200 [facility] Comment on above: Result Comment: <200 mg/dL Desirable 200-240 mg/dL Borderline >240 mg/dL High Risk Performed By: #### L 501.2450, L501.4020, L100.0500, L500.4050 #### [facility] [address] [place], [address] Cholesterol in HDL [Mass/Vol] 53 mg/dL Normal [facility] Comment on above: Result Comment: The drugs N-Acetylcysteine and Metamizole may falsely depress this assay. Reference Range HDL <40 mg/dL Low HDL Cholesterol HDL >or= 60 mg/dL High HDL Cholesterol Performed By: #### L 501.2450, L501.4020, L100.0500, L500.4050 #### [facility] [address] [place], [address] Cholesterol in LDL [Mass/Vol] 67 mg/dL Normal 0-130 [facility] Comment on above: Performed By: #### L 501.2450, L501.4020, L100.0500, L500.4050 #### [facility] [address] [place], [address] Cholesterol in VLDL [Mass/Vol] 21 mg/dL Normal 5-40 [facility] Comment on above: Performed By: #### L 501.2450, L501.4020, L100.0500, L500.4050 #### [facility] [address] [place], [address] Triglyceride [Mass/Vol] 103 mg/dL Normal [facility] Comment on above: Result Comment: The drugs N-Acetylcysteine and Metamizole may falsely depress this assay. Serum Triglycerides Reference Interval Normal <150 mg/dL Borderline high 150 - 199 mg/dL High 200 - 499 mg/dL Very High > or = 500 mg/dL Performed By: #### L 501.2450, L501.4020, L100.0500, L500.4050 #### [facility] [address] [place], [address] Low density lipoprotein (LDL ) cholesterol measurementOrdered By: Justin Bolden on 08-01-2024 Cholesterol in LDL [Mass/Vol] 67 mg/dL 0-130 [facility] Potassium measurementOrdered By: Justin Bolden on 08-01-2024 Potassium [Moles/Vol] 3.6 mmol/L 3.5-5.1 [facility] Protein+Creatinine Ratio,Uri neon 08-01-2024 PROT:CRE RATIO Normal 0-200 [facility] Comment on above: Result Comment: UTO Performed By: #### L 501.2450, L501.4020, L100.0500, L500.4050 #### [facility] [address] [place], [address] PROTEIN,UR.RAN. Normal <11.9 [facility] Comment on above: Result Comment: UTO Performed By: #### L 501.2450, L501.4020, L100.0500, L500.4050 #### [facility] [address] [place], [address] UR CREAT Normal NO RANGE EST. [facility] Comment on above: Result Comment: UTO Performed By: #### L 501.2450, L501.4020, L100.0500, L500.4050 #### [facility] [address] [place], [address] Serum anion gap measurementO rdered By: Justin Bolden on 08-01-2024 Anion gap [Moles/Vol] 12 mmol/L 5-15 [facility] Serum globulin measurementOr dered By: Justin Bolden on 08-01-2024 Globulin (S) [Mass/Vol] 4.3 g/dL High 2.2-4.2 [facility] Serum or plasma alanine atkins otransferase (ALT) measurementOrdered By: Justin Bolden on 08-01-2024 ALT [Catalytic activity/Vol] 30 U/L 13-56 [facility] Serum or plasma albumin nikunj urement (mass/volume)Ordered By: Justin Bolden on 08-01-2024 Albumin [Mass/Vol] 2.9 g/dL Low 3.2-5.0 [facility] Serum or plasma alkaline alix sphatase measurementOrdered By: Justin Bolden on 08-01-2024 ALP [Catalytic activity/Vol] 92 U/L 45-117 [facility] Serum or plasma calcium nikunj urement (mass/volume)Ordered By: Justin Bolden on 08-01-2024 Calcium [Mass/Vol] 8.3 mg/dL Low 8.5-10.1 [facility] Serum or plasma cholesterol measurement (mass/volume)Ordered By: Justin Bolden on 08-01-2024 Cholesterol [Mass/Vol] 141 mg/dL <200 [facility] Comment on above: <200 mg/dL Desirable 200-240 mg/dL Borderline >240 mg/dL High Risk Serum or plasma creatinine m easurement (mass/volume)Ordered By: Justin Bolden on 08-01-2024 Creatinine [Mass/Vol] 1.10 mg/dL High 0.55-1.02 [facility] Comment on above: The validity of the calculated GFR & GFRAA in patients over 70 years has not been determined. Clinical correlation is essential. Serum or plasma urea nitroge n measurement (mass/volume)Ordered By: Justin Bolden on 08-01-2024 Urea nitrogen [Mass/Vol] 21 mg/dL High 7-18 [facility] Sodium levelOrdered By: Justin Bolden on 08-01-2024 Sodium [Moles/Vol] 141 mmol/L 136-145 [facility] Total proteinOrdered By: Lauren Bolden on 08-01-2024 Protein [Mass/Vol] 7.2 g/dL 6.4-8.2 [facility] Triglycerides measurementOrd ered By: Justin Bolden on 08-01-2024 Triglyceride [Mass/Vol] 103 mg/dL <199 [facility] Comment on above: The drugs N-Acetylcy steine and Metamizole may falsely depress this assay.Serum Triglycerides Reference Interval Normal <150 mg/dL Borderline high 150 - 199 mg/dL High 200 - 499 mg/dL Very High > or = 500 mg/dL Very low density lipoprotein (VLDL) cholesterol measurementOrdered By: Justin Bolden on 08-01-2024 VLDL Cholesterol 21 mg/dL 5-40 [facility] Absolute lymphocyte countOrd ered By: Penny Redd on 10-14-2023 Lymphocytes Auto (Unsp spec) [#/Vol] 2.53 10*3/uL 0.83-4.51 [facility] Automated lymphocyte count a s percentage of total leukocytesOrdered By: Penny Redd on 10-14-2023 Lymphocytes/100 WBC Auto (Unsp spec) 13.1 % 19-41 [facility] Basophil percentageOrdered B y: Penny Redd on 10-14-2023 Basophils/100 WBC (Bld) 0.4 % 0-1 [facility] Chloride [Moles/Vol] 106 mmol/L 98-107 [facility] Eosinophils/100 WBC (Bld) 0.2 % 0-5 [facility] Glucose [Mass/Vol] 177 mg/dL 74-106 [facility] Comment on above: Fasting Glucose resu lt greater than or equal to 126 mg/dL suggests DIABETES MELLITUS per A.D.A. criteria. Hemoglobin (Bld) [Mass/Vol] 12.4 g/dL 12.0-15.0 [facility] Monocytes/100 WBC (Bld) 6.9 % 0-10 [facility] [facility] Neutrophils (Bld) [#/Vol] 15.3 10*3/uL 2.0-7.7 [facility] Neutrophils/100 WBC (Bld) 78.8 % 47-70 [facility] Potassium [Moles/Vol] 3.5 mmol/L 3.5-5.1 [facility] Sodium [Moles/Vol] 142 mmol/L 136-145 [facility] WBC (Bld) [#/Vol] 19.4 10*3/uL 4.4-11.0 [facility] Determination of erythrocyte mean corpuscular volume (MCV)Ordered By: Penny Redd on 10-14-2023 MCV (RBC) [Entitic vol] 103.5 fL 81-99 [facility] Erythrocyte distribution wid th ratioOrdered By: Penny Redd on 10-14-2023 Erythrocyte distribution width (RBC) [Ratio] 12.5 % 11.6-14.6 [facility] Erythrocyte distribution wid th standard deviationOrdered By: Penny Redd on 10-14-2023 Erythrocyte distribution width (RBC) [Entitic vol] 47.3 fL 35.1-43.9 [facility] Hematocrit Auto (Bld) [Volum e fraction]Ordered By: Penny Redd on 10-14-2023 Hematocrit (Bld) [Volume fraction] 38.8 % 37-47 [facility] Immature granulocytes/100 WB C Auto (Bld)Ordered By: Penny Redd on 10-14-2023 Immature granulocytes/100 WBC (Bld) 0.600 % 0.0-0.9 [facility] Comment on above: IG% - Immature Granu locytes (promyelocytes, myelocytes and metamyelocytes) > 1% indicates that a LEFT SHIFT is Present. Laboratory - Chemistry and C hemistry - challengeOrdered By: Penny Redd on 10-14-2023 CO2 [Moles/Vol] 33.0 mmol/L 21.0-32.0 [facility] Urea nitrogen/Creatinine [Mass ratio] 20.7 mg/mg 10-20 [facility] Laboratory - Hematology and Cell countsOrdered By: Penny Redd on 10-14-2023 MCH (RBC) [Entitic mass] 33.1 pg 27.0-32.0 [facility] MCHC (RBC) [Mass/Vol] 32.0 g/dL 32-36 [facility] Nucleated RBC/100 WBC (Bld) [Ratio] 0 % 0-5 [facility] Platelet mean volume (Bld) [Entitic vol] 12.0 fL 6.2-12.0 [facility] Platelets (Bld) [#/Vol] 192 10*3/uL 150-450 [facility] No Panel InformationOrdered By: Penny Redd on 10-14-2023 Estimated Creatinine Clearance Calc 75.23 ml/min [facility] Estimated GFR (MDRD) Amer 77 mL/min >60 [facility] Comment on above: GFR Calc Estimated GFR (MDRD) Non-Af Amer 64 mL/min >60 [facility] Comment on above: Non- GFR Calc RBC Auto (Bld) [#/Vol]Ordere d By: Penny Redd on 10-14-2023 RBC (Bld) [#/Vol] 3.75 10*6/uL 4.2-5.4 [facility] Serum or plasma calcium nikunj urement (mass/volume)Ordered By: Penny Redd on 10-14-2023 Calcium [Mass/Vol] 8.8 mg/dL 8.5-10.1 [facility] Serum or plasma creatinine m easurement (mass/volume)Ordered By: Penny Redd on 10-14-2023 Creatinine [Mass/Vol] 0.92 mg/dL 0.55-1.02 [facility] Comment on above: The validity of the calculated GFR & GFRAA in patients over 70 years has not been determined. Clinical correlation is essential. Serum or plasma urea nitroge n measurement (mass/volume)Ordered By: Penny Redd on 10-14-2023 Urea nitrogen [Mass/Vol] 19 mg/dL 7-18 [facility] Thin prep Papanicolaou smear with manual screeningOrdered By: Penny Redd on 10-14-2023 Thin prep Papanicolaou smear with manual screening 3 5-15 [facility] Basophil percentageOrdered B y: Chantelle Chavarria on 10-13-2023 Bilirubin [Mass/Vol] 0.50 mg/dL 0.20-1.00 [facility] Comment on above: For patients on eltr ombopag therapy, use of Dimension Wendel TBIL is not recommended. Protein [Mass/Vol] 6.5 g/dL 6.4-8.2 [facility] Laboratory - Chemistry and C hemistry - challengeOrdered By: Chantelle Chavarria on 10-13-2023 Albumin/Globulin [Mass ratio] 0.8 {ratio} 0.9-2.4 [facility] ALP [Catalytic activity/Vol] 80 U/L 45-117 [facility] ALT [Catalytic activity/Vol] 39 U/L 13-56 [facility] Globulin (S) [Mass/Vol] 3.6 g/dL 2.2-4.2 [facility] Thin prep Papanicolaou smear with manual screeningOrdered By: Penny Redd on 10-13-2023 Thin prep Papanicolaou smear with manual screening 280 mg/dL 74-106 [facility] Comment on above: MANAGEMENT OF PATIEN T CARE PER NURSING PROTOCOL Thin prep Papanicolaou smear with manual screeningOrdered By: Chantelle Chavarria on 10-13-2023 Thin prep Papanicolaou smear with manual screening 2.9 g/dL 3.2-5.0 [facility] Thin prep Papanicolaou smear with manual screening 53 U/L 15-37 [facility] Whole blood hemoglobin A1c/t otal hemoglobin ratio (mass fraction)Ordered By: Penny Redd on 10-13-2023 HbA1c (Bld) [Mass fraction] 7.3 % 3.8-5.6 [facility] Comment on above: Normal < 5.7 % Predi abetic 5.7 - 6.4 % Diabetic >or= 6.5 % Please note range changes. Absolute lymphocyte countOrd ered By: Aquilino Sheikh on 10-12-2023 Lymphocytes Auto (Unsp spec) [#/Vol] 1.44 10*3/uL 0.83-4.51 [facility] Automated lymphocyte count a s percentage of total leukocytesOrdered By: Aquilino Sheikh on 10-12-2023 Lymphocytes/100 WBC Auto (Unsp spec) 7.9 % 19-41 [facility] Basophil percentageOrdered B y: Aquilino Sheikh on 10-12-2023 Basophil percentage 0-5 SEEN /hpf 0-5 [facility] Basophils/100 WBC (Bld) 0.4 % 0-1 [facility] Eosinophils/100 WBC (Bld) 0.4 % 0-5 [facility] Hemoglobin (Bld) [Mass/Vol] 12.6 g/dL 12.0-15.0 [facility] Monocytes/100 WBC (Bld) 7.9 % 0-10 [facility] Neutrophils (Bld) [#/Vol] 15.0 10*3/uL 2.0-7.7 [facility] Neutrophils/100 WBC (Bld) 83.0 % 47-70 [facility] WBC (Bld) [#/Vol] 18.1 10*3/uL 4.4-11.0 [facility] Chloride [Moles/Vol] 104 mmol/L 98-107 [facility] Glucose [Mass/Vol] 247 mg/dL 74-106 [facility] Comment on above: Glucose result great er than or equal to 200 mg/dLsuggests DIABETES MELLITUS per A.D.A. criteria. Potassium [Moles/Vol] 3.9 mmol/L 3.5-5.1 [facility] Sodium [Moles/Vol] 138 mmol/L 136-145 [facility] Bilirubin Test strip Ql (U)O rdered By: Aquilino Sheikh on 10-12-2023 Bilirubin Ql (U) Negative Negative [facility] Culture, urineOrdered By: Haleigh Chavarria on 10-12-2023 Bacteria identified Cx Nom (U) Presumptive E. coli [facility] Determination of erythrocyte mean corpuscular volume (MCV)Ordered By: Aquilino Sheikh on 10-12-2023 MCV (RBC) [Entitic vol] 101.6 fL 81-99 [facility] Erythrocyte distribution wid th ratioOrdered By: Aquilino Sheikh on 10-12-2023 Erythrocyte distribution width (RBC) [Ratio] 12.3 % 11.6-14.6 [facility] Erythrocyte distribution wid th standard deviationOrdered By: Aquilino Sheikh on 10-12-2023 Erythrocyte distribution width (RBC) [Entitic vol] 46.0 fL 35.1-43.9 [facility] Hematocrit Auto (Bld) [Volum e fraction]Ordered By: Aquilino Sheikh on 10-12-2023 Hematocrit (Bld) [Volume fraction] 37.9 % 37-47 [facility] Immature granulocytes/100 WB C Auto (Bld)Ordered By: Aquilino Sheikh on 10-12-2023 Immature granulocytes/100 WBC (Bld) 0.400 % 0.0-0.9 [facility] Comment on above: IG% - Immature Granu locytes (promyelocytes, myelocytes and metamyelocytes) > 1% indicates that a LEFT SHIFT is Present. Ketones Test strip Ql (U)Ord ered By: Aquilino Sheikh on 10-12-2023 Ketones Ql (U) Negative Negative [facility] Laboratory - Chemistry and C hemistry - challengeOrdered By: Aquilino Sheikh on 10-12-2023 CO2 [Moles/Vol] 29.0 mmol/L 21.0-32.0 [facility] Urea nitrogen/Creatinine [Mass ratio] 14.0 mg/mg 10-20 [facility] Laboratory - Chemistry and C hemistry - challengeOrdered By: Chantelle Chavarria on 10-12-2023 Magnesium [Mass/Vol] 1.6 mg/dL 1.6-2.6 [facility] Comment on above: Slight Hemolysis, Re sult may be falsely increased. Laboratory - Hematology and Cell countsOrdered By: Aquilino Sheikh on 10-12-2023 MCH (RBC) [Entitic mass] 33.8 pg 27.0-32.0 [facility] MCHC (RBC) [Mass/Vol] 33.2 g/dL 32-36 [facility] Nucleated RBC/100 WBC (Bld) [Ratio] 0 % 0-5 [facility] Platelet mean volume (Bld) [Entitic vol] 11.4 fL 6.2-12.0 [facility] Platelets (Bld) [#/Vol] 159 10*3/uL 150-450 [facility] Mucus LM Ql (Urine sed)Order ed By: Aquilino Sheikh on 10-12-2023 Mucus Ql (Urine sed) 0 SEEN /hpf [facility] Nitrite Test strip Ql (U)Ord ered By: Aquilino Sheikh on 10-12-2023 Nitrite Ql (U) Positive Negative [facility] No Panel InformationOrdered By: Penny Redd on 10-12-2023 D-Dimer Quantitative (PE/DVT) 0.86 FEU/ug/m 0.27-0.49 [facility] Comment on above: D-Dimer ELEVATED (>0 .49): Additional studies and clinicalassessments are indicated to conclude diagnosis of:Deep Vein Thrombosis (DVT) or Pulmonary Embolism (PE)CRITICAL VALUE VERIFIED. CALLED TO DEBBI SARAH10/12/23 1838 Sanjuanita Flores.RESULTS READ BACK BY SAME . No Panel InformationOrdered By: Chantelle Chavarria on 10-12-2023 Troponin I High Sensitivity 14 pg/mL 3.0-54.0 [facility] Comment on above: Please Note: [place] t Units and Gender Specific Reference Ranges. For more information see Policy Stat Procedure Wendel High Sensitivity Troponin (TNIH) and attachments. No Panel InformationOrdered By: Aquilino Sheikh on 04-08-2024 Urine RBC 0 SEEN /hpf 0-5 [facility] Estimated Creatinine Clearance Calc 54.33 ml/min [facility] Estimated GFR (MDRD) Amer 60 mL/min >60 [facility] Comment on above: GFR Calc Estimated GFR (MDRD) Non-Af Amer 50 mL/min >60 [facility] Comment on above: Non- GFR Calc Protein Test strip Ql (U)Ord ered By: Aquilino Sheikh on 10-12-2023 Protein Ql (U) 100 mg/dl Negative [facility] RBC Auto (Bld) [#/Vol]Ordere d By: Aquilino Sheikh on 10-12-2023 RBC (Bld) [#/Vol] 3.73 10*6/uL 4.2-5.4 [facility] Serum or plasma calcium nikunj urement (mass/volume)Ordered By: Aquilino Sheikh on 10-12-2023 Calcium [Mass/Vol] 8.4 mg/dL 8.5-10.1 [facility] Serum or plasma creatinine m easurement (mass/volume)Ordered By: Aquilino Sheikh on 10-12-2023 Creatinine [Mass/Vol] 1.14 mg/dL 0.55-1.02 [facility] Comment on above: The validity of the calculated GFR & GFRAA in patients over 70 years has not been determined. Clinical correlation is essential. Serum or plasma urea nitroge n measurement (mass/volume)Ordered By: Aquilino Sheikh on 10-12-2023 Urea nitrogen [Mass/Vol] 16 mg/dL 7-18 [facility] Serum procalcitonin measurem entOrdered By: Chantelle Chavarria on 10-12-2023 Procalcitonin [Mass/Vol] 0.10 ng/mL 0.00-0.09 [facility] Comment on above: A procalcitonin (PCT ) level above 2.0 ng/mL on the first day of ICU admission is associated with a high risk for progression to severe sepsis and/or septic shock. A PCT level below 0.5 ng/mL on the first day of ICU admission is associated with a low risk for progression to severe and/or septic shock. Note: Concentrations <0.5 ng/mL do not exclude an infection on account of localized infections (without systemic signs) which can be associated with such low concentrations, or a systemic infection in its initial stages (<6 hours). Furthermore, increased procalcitonin can occur without infection. PCT concentrations between 0.5 and 2.0 ng/mL should be interpreted taking into account the patient's history. It is recommended to retest PCT within 6-24 hours if any concentrations <2 ng/mL are obtained. Squamous epithelial cells de tection in urine sediment by light microscopyOrdered By: Aquilino Sheikh on 10-12-2023 Epithelial cells.squamous LM Ql (Urine sed) 0-5 SEEN /hpf 5-10 [facility] Thin prep Papanicolaou smear with manual screeningOrdered By: Aquilino Sheikh on 10-12-2023 Thin prep Papanicolaou smear with manual screening 5 5-15 [facility] Urine blood detectionOrdered By: Aquilion Sheikh on 10-12-2023 RBC Ql (U) 150 /ul Negative [facility] Urine clarityOrdered By: Raimundo Sheikh on 10-12-2023 Clarity (U) Sl. Cloudy Clear [facility] Urine color determinationOrd ered By: Aquilino Sheikh on 10-12-2023 Color (U) Yellow Yellow [facility] Urine glucose detectionOrder ed By: Aquilino Sheikh 10-12-2023 Glucose Ql (U) 1000 mg/dl Normal [facility] Urine leukocyte esterase det ection by dipstickOrdered By: Aquilino Sheikh 10-12-2023 Leukocyte esterase Test strip Ql (U) 25 /ul Negative [facility] Urine pHOrdered By: Aquilino Sheikh 10-12-2023 pH (U) 6.0 [pH] 5.0 - 8.0 [facility] Urine sediment bacteria coun t by microscopy (number/high power field)Ordered By: Aquilino Sheikh 10-12-2023 Bacteria LM.HPF (Urine sed) [#/Area] 4 /[HPF] None Seen [facility] Urine specific gravity measu rementOrdered By: Aquilino Sheikh on 10-12-2023 Specific gravity (U) [Rel density] 1.015 1.002-1.030 [facility] Urine urobilinogen measureme ntOrdered By: Aquilino Sheikh 10-12-2023 Urobilinogen Ql (U) 4 mg/dl Normal [facility] Basophil percentageOrdered B y: Acacia Lindquist on 09-03-2023 Chloride [Moles/Vol] 104 mmol/L 98-107 [facility] Glucose [Mass/Vol] 222 mg/dL 74-106 [facility] Comment on above: Glucose result great er than or equal to 200 mg/dLsuggests DIABETES MELLITUS per A.D.A. criteria. Potassium [Moles/Vol] 3.8 mmol/L 3.5-5.1 [facility] Sodium [Moles/Vol] 138 mmol/L 136-145 [facility] Laboratory - Chemistry and C hemistry - challengeOrdered By: Acacia Lindquist on 09-03-2023 CO2 [Moles/Vol] 32.0 mmol/L 21.0-32.0 [facility] Urea nitrogen/Creatinine [Mass ratio] 10.3 mg/mg 10-20 [facility] No Panel InformationOrdered By: Acacia Lindquist on 09-03-2023 Estimated GFR (MDRD) Amer 65 mL/min >60 [facility] Comment on above: GFR Calc Estimated GFR (MDRD) Non-Af Amer 53 mL/min >60 [facility] Comment on above: Non- GFR Calc Serum or plasma calcium nikunj urement (mass/volume)Ordered By: Acacia Lindquist on 09-03-2023 Calcium [Mass/Vol] 8.6 mg/dL 8.5-10.1 [facility] Serum or plasma creatinine m easurement (mass/volume)Ordered By: Acacia Lindquist on 09-03-2023 Creatinine [Mass/Vol] 1.07 mg/dL 0.55-1.02 [facility] Comment on above: The validity of the calculated GFR & GFRAA in patients over 70 years has not been determined. Clinical correlation is essential. Serum or plasma urea nitroge n measurement (mass/volume)Ordered By: Acacia Lindquist on 09-03-2023 Urea nitrogen [Mass/Vol] 11 mg/dL 7-18 [facility] Thin prep Papanicolaou smear with manual screeningOrdered By: Acacia Lindquist on 09-03-2023 Thin prep Papanicolaou smear with manual screening 2 5-15 [facility] Absolute lymphocyte countOrd ered By: Farhad Garza on 03-23-2023 Lymphocytes Auto (Unsp spec) [#/Vol] 1.38 10*3/uL 0.83-4.51 [facility] Basophil percentageOrdered B y: Farhad Garza on 03-23-2023 Basophils/100 WBC (Bld) 0.2 % 0-1 [facility] Chloride [Moles/Vol] 100 mmol/L 98-107 [facility] Eosinophils/100 WBC (Bld) 0.0 % 0-5 [facility] Glucose [Mass/Vol] 218 mg/dL 74-106 [facility] Comment on above: Glucose result great er than or equal to 200 mg/dLsuggests DIABETES MELLITUS per A.D.A. criteria. Neutrophils (Bld) [#/Vol] 14.8 10*3/uL 2.0-7.7 [facility] Neutrophils/100 WBC (Bld) 85.8 % 47-70 [facility] Potassium [Moles/Vol] 4.0 mmol/L 3.5-5.1 [facility] Sodium [Moles/Vol] 138 mmol/L 136-145 [facility] WBC (Bld) [#/Vol] 17.3 10*3/uL 4.4-11.0 [facility] Blood erythrocytes count (nu mber/volume)Ordered By: Farhad Garza on 03-23-2023 RBC (Bld) [#/Vol] 5.12 10*6/uL 4.2-5.4 [facility] Blood hemoglobin measurement (mass/volume)Ordered By: Farhad Garza on 03-23-2023 Hemoglobin (Bld) [Mass/Vol] 15.3 g/dL 12.0-15.0 [facility] Blood lymphocytes/100 leukoc ytesOrdered By: Farhad Garza on 03-23-2023 Lymphocytes/100 WBC (Bld) 8.0 % 19-41 [facility] Blood monocytes/100 leukocyt esOrdered By: Farhad Garza on 03-23-2023 Monocytes/100 WBC (Bld) 5.4 % 0-10 [facility] Blood platelet mean volumeOr dered By: Farhad Garza on 03-23-2023 Platelet mean volume (Bld) [Entitic vol] 12.0 fL 6.2-12.0 [facility] Determination of erythrocyte mean corpuscular volume (MCV)Ordered By: Farhad Garza on 03-23-2023 MCV (RBC) [Entitic vol] 99.0 fL 81-99 [facility] Hematocrit Auto (Bld) [Volum e fraction]Ordered By: Farhad Garza on 03-23-2023 Hematocrit (Bld) [Volume fraction] 50.7 % 37-47 [facility] Laboratory - Chemistry and C hemistry - challengeOrdered By: Farhad Garza on 03-23-2023 CO2 [Moles/Vol] 36.0 mmol/L 21.0-32.0 [facility] Urea nitrogen/Creatinine [Mass ratio] 26.0 mg/mg 10-20 [facility] Laboratory - CoagulationOrde red By: Blaise العلي on 03-23-2023 aPTT Coag (Bld) [Time] 58.8 s 24.1-36.2 [facility] Laboratory - Hematology and Cell countsOrdered By: Farhad Garza on 03-23-2023 Erythrocyte distribution width (RBC) [Entitic vol] 52.6 fL 35.1-43.9 [facility] Erythrocyte distribution width (RBC) [Ratio] 14.3 % 11.6-14.6 [facility] Immature granulocytes/100 WBC (Bld) 0.600 % 0.0-0.9 [facility] Comment on above: IG% - Immature Granu locytes (promyelocytes, myelocytes and metamyelocytes) > 1% indicates that a LEFT SHIFT is Present. MCH (RBC) [Entitic mass] 29.9 pg 27.0-32.0 [facility] Nucleated RBC/100 WBC (Bld) [Ratio] 0 % 0-5 [facility] MCHC Auto (RBC) [Mass/Vol]Or dered By: Farhad Garza on 03-23-2023 MCHC (RBC) [Mass/Vol] 30.2 g/dL 32-36 [facility] No Panel InformationOrdered By: Farhad Garza on 03-23-2023 Estimated Creatinine Clearance Calc 43.91 ml/min [facility] Estimated GFR (MDRD) Amer 101 mL/min >60 [facility] Comment on above: GFR Calc Estimated GFR (MDRD) Non-Af Amer 83 mL/min >60 [facility] Comment on above: Non- GFR Calc Platelets bldOrdered By: Janak Garza on 03-23-2023 Platelets (Bld) [#/Vol] 176 10*3/uL 150-450 [facility] Serum or plasma calcium nikunj urement (mass/volume)Ordered By: Farhad Garza on 03-23-2023 Calcium [Mass/Vol] 8.3 mg/dL 8.5-10.1 [facility] Serum or plasma creatinine m easurement (mass/volume)Ordered By: Farhad Garza on 03-23-2023 Creatinine [Mass/Vol] 0.73 mg/dL 0.55-1.02 [facility] Comment on above: The validity of the calculated GFR & GFRAA in patients over 70 years has not been determined. Clinical correlation is essential. Serum or plasma urea nitroge n measurement (mass/volume)Ordered By: Farhad Garza on 03-23-2023 Urea nitrogen [Mass/Vol] 19 mg/dL 7-18 [facility] Thin prep Papanicolaou smear with manual screeningOrdered By: Farhad Garza on 03-23-2023 Thin prep Papanicolaou smear with manual screening 2 5-15 [facility] Basophil percentageOrdered B y: Farhad Garza on 03-22-2023 Basophil percentage 0 SEEN /hpf 0-5 [facility] Bilirubin Test strip Ql (U)O rdered By: Farhad Garza on 03-22-2023 Bilirubin Ql (U) Negative Negative [facility] Blood manual differential co mment interpretation (narrative result)Ordered By: Farhad Garza on 03-22-2023 Manual differential comment Wilfrid (Bld) [Interp] SCANNED [facility] Comment on above: NEUTROPHILIA NOTED Ketones Test strip Ql (U)Ord ered By: Farhad Garza on 03-22-2023 Ketones Ql (U) Negative Negative [facility] Mucus LM Ql (Urine sed)Order ed By: Farhad Garza on 03-22-2023 Mucus Ql (Urine sed) 0 SEEN /hpf [facility] Nitrite Test strip Ql (U)Ord ered By: Farhad Garza on 03-22-2023 Nitrite Ql (U) Negative Negative [facility] Protein Test strip Ql (U)Ord ered By: Farhad Garza on 03-22-2023 Protein Ql (U) 30 mg/dl Negative [facility] Squamous epithelial cells de tection in urine sediment by light microscopyOrdered By: Farhad Garza on 03-22-2023 Epithelial cells.squamous LM Ql (Urine sed) 0-5 SEEN /hpf 5-10 [facility] Urine blood detectionOrdered By: Farhad Garza on 03-22-2023 RBC Ql (U) Negative Negative [facility] RBC Ql (U) 0 SEEN /hpf 0-5 [facility] Urine clarityOrdered By: Janak Garza on 03-22-2023 Clarity (U) Clear Clear [facility] Urine color determinationOrd ered By: Farhad Garza on 03-22-2023 Color (U) Yellow Yellow [facility] Urine glucose detectionOrder ed By: Farhad Garza on 03-22-2023 Glucose Ql (U) Normal mg/dl Normal [facility] Urine leukocyte esterase det ection by dipstickOrdered By: Farhad Garza on 03-22-2023 Leukocyte esterase Test strip Ql (U) Negative Negative [facility] Urine pHOrdered By: Farhad Garza on 03-22-2023 pH (U) 6.0 [pH] 5.0 - 8.0 [facility] Urine sediment bacteria coun t by microscopy (number/high power field)Ordered By: Farhad Garza on 03-22-2023 Bacteria LM.HPF (Urine sed) [#/Area] 0 /[HPF] None Seen [facility] Urine specific gravity measu rementOrdered By: Farhad Garza on 03-22-2023 Specific gravity (U) [Rel density] 1.015 1.002-1.030 [facility] Urobilinogen Auto test strip Ql (U)Ordered By: Farhad Garza on 03-22-2023 Urobilinogen Ql (U) 1 mg/dl Normal [facility] HCO3 (BldA) [Moles/Vol]Order ed By: Jennie Salgado on 03-20-2023 HCO3 (Bld) [Moles/Vol] 35 mmol/L 22- [facility] Laboratory - Chemistry and C hemistry - challengeOrdered By: Jennie Salgado on 03-20-2023 CO2 [Moles/Vol] 37 mmol/L 23-33 [facility] No Panel InformationOrdered By: Jennie Salgado on 03-20-2023 Bed Mix Venous Bld PCO2 at Pat Temp 60.5 mmHg 41-51 [facility] Blood Gas Oxygen Percent 3.0 [facility] Blood Gas Sample Site Not entered [facility] Blood Gas Specimen Type [place] [facility] Oxygen Delivery Device Cannula [facility] Venous Blood Base Excess 10 mmol/L -1.0-3.5 [facility] Thyroid Stimulating Hormone (TSH) 1.46 uIU/mL 0.358-3.74 [facility] PO2 venousOrdered By: Jennie Salgado on 03-20-2023 Oxygen (BldV) [Partial pressure] 40 mm[Hg] 25-40 [facility] Vital signsOrdered By: Jennie Salgado on 03-20-2023 Oxygen saturation in Blood 71 % 50-70 [facility] pH measurementOrdered By: Domenico Salgado on 03-20-2023 pH (Unsp spec) 7.37 [pH] 7.32-7.42 [facility] Absolute lymphocyte countOrd ered By: Harjit Ivory on 03-19-2023 Lymphocytes Auto (Unsp spec) [#/Vol] 1.62 10*3/uL 0.83-4.51 [facility] Basophil percentageOrdered B y: Harjit Ivory on 03-19-2023 Chloride [Moles/Vol] 105 mmol/L 98-107 [facility] Glucose [Mass/Vol] 114 mg/dL 74-106 [facility] Comment on above: Fasting Glucose resu lt from 100 to 125 mg/dL suggests IMPAIRED HOMEOSTASIS per A.D.A. criteria. Potassium [Moles/Vol] 4.3 mmol/L 3.5-5.1 [facility] Sodium [Moles/Vol] 139 mmol/L 136-145 [facility] Basophils/100 WBC (Bld) 0.7 % 0-1 [facility] Eosinophils/100 WBC (Bld) 1.7 % 0-5 [facility] Neutrophils (Bld) [#/Vol] 5.8 10*3/uL 2.0-7.7 [facility] Neutrophils/100 WBC (Bld) 69.8 % 47-70 [facility] WBC (Bld) [#/Vol] 8.3 10*3/uL 4.4-11.0 [facility] Blood erythrocytes count (nu mber/volume)Ordered By: Harjit Ivory on 03-19-2023 RBC (Bld) [#/Vol] 5.70 10*6/uL 4.2-5.4 [facility] Blood hemoglobin measurement (mass/volume)Ordered By: Harjit Ivory on 03-19-2023 Hemoglobin (Bld) [Mass/Vol] 17.3 g/dL 12.0-15.0 [facility] Blood lymphocytes/100 leukoc ytesOrdered By: Harjti Ivory on 03-19-2023 Lymphocytes/100 WBC (Bld) 19.5 % 19-41 [facility] Blood monocytes/100 leukocyt esOrdered By: Harjit Ivory on 03-19-2023 Monocytes/100 WBC (Bld) 8.1 % 0-10 [facility] Blood platelet mean volumeOr dered By: Harjit Ivory on 03-19-2023 Platelet mean volume (Bld) [Entitic vol] 11.9 fL 6.2-12.0 [facility] Determination of erythrocyte mean corpuscular volume (MCV)Ordered By: Harjit Ivory on 03-19-2023 MCV (RBC) [Entitic vol] 101.2 fL 81-99 [facility] Hematocrit Auto (Bld) [Volum e fraction]Ordered By: Harjit Ivory on 03-19-2023 Hematocrit (Bld) [Volume fraction] 57.7 % 37-47 [facility] Influenza virus A and B and SARS-CoV-2 (COVID-19) Ag panel - Upper respiratory specimOrdered By: Harjit Ivory on 03-19-2023 SARS-CoV-2 (COVID-19) RNA GIANNI+probe Ql (Resp) [facility] Laboratory - Chemistry and C hemistry - challengeOrdered By: Harjit Ivory on 03-19-2023 CO2 [Moles/Vol] 33.0 mmol/L 21.0-32.0 [facility] Urea nitrogen/Creatinine [Mass ratio] 10.3 mg/mg 10-20 [facility] Natriuretic peptide B (Bld) [Mass/Vol] 56.0 pg/mL 0-100 [facility] Laboratory - Hematology and Cell countsOrdered By: Harjit Ivory on 03-19-2023 Erythrocyte distribution width (RBC) [Entitic vol] 53.9 fL 35.1-43.9 [facility] Erythrocyte distribution width (RBC) [Ratio] 14.5 % 11.6-14.6 [facility] Immature granulocytes/100 WBC (Bld) 0.200 % 0.0-0.9 [facility] Comment on above: IG% - Immature Granu locytes (promyelocytes, myelocytes and metamyelocytes) > 1% indicates that a LEFT SHIFT is Present. MCH (RBC) [Entitic mass] 30.4 pg 27.0-32.0 [facility] Nucleated RBC/100 WBC (Bld) [Ratio] 0 % 0-5 [facility] MCHC Auto (RBC) [Mass/Vol]Or dered By: Harjit Ivory on 03-19-2023 MCHC (RBC) [Mass/Vol] 30.0 g/dL 32-36 [facility] No Panel InformationOrdered By: Jennie Salgado on 03-19-2023 D-Dimer Quantitative (PE/DVT) 1.17 FEU/ug/m 0.27-0.49 [facility] Comment on above: CRITICAL VALUE VERIF IED. CALLED TO NANETTE DE LA PAZ RN [id number] Robert Maya.RESULTS READ BACK BY SAME . D-Dimer ELEVATED (>0.49): Additional studies and clinicalassessments are indicated to conclude diagnosis of:Deep Vein Thrombosis (DVT) or Pulmonary Embolism (PE) No Panel InformationOrdered By: Harjit Ivory on 03-19-2023 Estimated Creatinine Clearance Calc 43.91 ml/min [facility] Estimated GFR (MDRD) Amer 94 mL/min >60 [facility] Comment on above: GFR Calc Estimated GFR (MDRD) Non-Af Amer 78 mL/min >60 [facility] Comment on above: Non- GFR Calc Troponin I High Sensitivity 8 pg/mL 3.0-54.0 [facility] Comment on above: Please Note: [place] t Units and Gender Specific Reference Ranges. For more information see Policy Stat Procedure Wendel High Sensitivity Troponin (TNIH) and attachments. Platelets bldOrdered By: Alex Ivory on 03-19-2023 Platelets (Bld) [#/Vol] 210 10*3/uL 150-450 [facility] Respiratory pathogens detect ion panel by molecular detection methodOrdered By: Jennie Salgado on 03-19-2023 Respiratory pathogens DNA and RNA panel GIANNI+probe (Resp) [facility] Respiratory pathogens DNA and RNA panel GIANNI+probe (Resp) [facility] Serum or plasma calcium nikunj urement (mass/volume)Ordered By: Harjit Ivory on 03-19-2023 Calcium [Mass/Vol] 8.4 mg/dL 8.5-10.1 [facility] Serum or plasma creatinine m easurement (mass/volume)Ordered By: Harjit Ivory on 03-19-2023 Creatinine [Mass/Vol] 0.78 mg/dL 0.55-1.02 [facility] Comment on above: The validity of the calculated GFR & GFRAA in patients over 70 years has not been determined. Clinical correlation is essential. Serum or plasma urea nitroge n measurement (mass/volume)Ordered By: Harjit Ivory on 03-19-2023 Urea nitrogen [Mass/Vol] 8 mg/dL 7-18 [facility] Thin prep Papanicolaou smear with manual screeningOrdered By: Harjit Ivory on 03-19-2023 Thin prep Papanicolaou smear with manual screening 1 5-15 [facility] Basophil percentageOrdered B y: Dr. Bolden on 09-12-2022 Bilirubin [Mass/Vol] 0.50 mg/dL 0.20-1.00 [facility] Comment on above: For patients on eltr ombopag therapy, use of Dimension Wendel TBIL is not recommended. Chloride [Moles/Vol] 100 mmol/L 98-107 [facility] Cholesterol [Mass/Vol] 139 mg/dL <200 [facility] Comment on above: <200 mg/dL Desirable 200-240 mg/dL Borderline >240 mg/dL High Risk Glucose [Mass/Vol] 143 mg/dL 74-106 [facility] Comment on above: Fasting Glucose resu lt greater than or equal to 126 mg/dL suggests DIABETES MELLITUS per A.D.A. criteria. Potassium [Moles/Vol] 4.2 mmol/L 3.5-5.1 [facility] Comment on above: Slight Hemolysis, Re sult may be falsely increased. Protein [Mass/Vol] 7.8 g/dL 6.4-8.2 [facility] Sodium [Moles/Vol] 139 mmol/L 136-145 [facility] Triglyceride [Mass/Vol] 140 mg/dL <199 [facility] Comment on above: The drugs N-Acetylcy steine and Metamizole may falsely depress this assay.Serum Triglycerides Reference Interval Normal <150 mg/dL Borderline high 150 - 199 mg/dL High 200 - 499 mg/dL Very High > or = 500 mg/dL Laboratory - Chemistry and C hemistry - challengeOrdered By: Dr. Bolden on 09-12-2022 ALP [Catalytic activity/Vol] 94 U/L 45-117 [facility] ALT [Catalytic activity/Vol] 37 U/L 13-56 [facility] CO2 [Moles/Vol] 31.0 mmol/L 21.0-32.0 [facility] Globulin (S) [Mass/Vol] 4.3 g/dL 2.2-4.2 [facility] Urea nitrogen/Creatinine [Mass ratio] 11.8 mg/mg 10-20 [facility] No Panel InformationOrdered By: Dr. Bolden on 09-12-2022 Estimated GFR (MDRD) Amer 76 mL/min >60 [facility] Comment on above: GFR Calc Estimated GFR (MDRD) Non-Af Amer 63 mL/min >60 [facility] Comment on above: Non- GFR Calc Serum or plasma albumin nikunj urement (mass/volume)Ordered By: Dr. Bolden on 09-12-2022 Albumin [Mass/Vol] 3.5 g/dL 3.2-5.0 [facility] Serum or plasma albumin/glob ulin mass ratioOrdered By: Dr. Bolden on 09-12-2022 Albumin/Globulin [Mass ratio] 0.8 {ratio} 0.9-2.4 [facility] Serum or plasma calcium nikunj urement (mass/volume)Ordered By: Dr. Bolden on 09-12-2022 Calcium [Mass/Vol] 9.0 mg/dL 8.5-10.1 [facility] Serum or plasma cholesterol in HDL measurement (mass/volume)Ordered By: Dr. Bolden on 09-12-2022 Cholesterol in HDL [Mass/Vol] 44 mg/dL >40 [facility] Comment on above: The drugs N-Acetylcy steine and Metamizole may falsely depress this assay. Reference Range HDL <40 mg/dL Low HDL Cholesterol HDL >or= 60 mg/dL High HDL Cholesterol Serum or plasma cholesterol in VLDL measurement (mass/volume)Ordered By: Dr. Bolden on 09-12-2022 Cholesterol in VLDL [Mass/Vol] 28 mg/dL 5-40 [facility] Serum or plasma creatinine m easurement (mass/volume)Ordered By: Dr. Bolden on 09-12-2022 Creatinine [Mass/Vol] 0.94 mg/dL 0.55-1.02 [facility] Comment on above: The validity of the calculated GFR & GFRAA in patients over 70 years has not been determined. Clinical correlation is essential. Serum or plasma low density lipoprotein (LDL) cholesterol measurement (mass/volume)Ordered By: Dr. Bolden on 09-12-2022 Cholesterol in LDL [Mass/Vol] 67 mg/dL 0-130 [facility] Serum or plasma urea nitroge n measurement (mass/volume)Ordered By: Dr. Bolden on 09-12-2022 Urea nitrogen [Mass/Vol] 11 mg/dL 7-18 [facility] Thin prep Papanicolaou smear with manual screeningOrdered By: Dr. Bolden on 09-12-2022 Thin prep Papanicolaou smear with manual screening 33 U/L 15-37 [facility] Comment on above: Slight Hemolysis, Re sult may be falsely increased. Thin prep Papanicolaou smear with manual screening 8 5-15 [facility] Vital Signs Date Time Vital Sign Value Performing Clinician Faci lity 04-03-2025 07:57-0400 Body mass index (BMI) [Ratio] 41.7 kg/m2 Dr. Justin Bolden MD Work Phone: [facility] 04-03-2025 07:57-0400 Body temperature 97.4 [degF] Dr. Justin Bolden MD Work Phone: [facility] 04-03-2025 07:57-0400 Body weight 110.[address] Justin Bolden MD Work Phone: [facility] 04-03-2025 07:57-0400 Diastolic blood pressure 81 mm[Hg] Dr. Justin Bolden MD Work Phone: [facility] 04-03-2025 07:57-0400 Heart rate 67 /min Dr. Justin Bolden MD Work Phone: [facility] 04-03-2025 07:57-0400 Inhaled oxygen flow rate 3 L/min Dr. Justin Bolden MD Work Phone: [facility] 04-03-2025 07:57-0400 Respiratory rate 20 /min Dr. Justin Bolden MD Work Phone: [facility] 04-03-2025 07:57-0400 SaO2% (BldA) [Mass fraction] 98 % Dr. Justin Bolden MD Work Phone: [facility] 04-03-2025 07:57-0400 Systolic blood pressure 133 mm[Hg] Dr. Justin Bolden MD Work Phone: [facility] 03-28-2025 07:11-0400 Body mass index (BMI) [Ratio] 41.1 kg/m2 Dr. Justin Bolden MD Work Phone: [facility] 03-28-2025 07:11-0400 Body weight 108.[address] Justin Bolden MD Work Phone: [facility] 03-28-2025 07:11-0400 Diastolic blood pressure 90 mm[Hg] Dr. Justin Bolden MD Work Phone: [facility] 03-28-2025 07:11-0400 Heart rate 74 /min Dr. Justin Bolden MD Work Phone: [facility] 03-28-2025 07:11-0400 Inhaled oxygen flow rate 3 L/min Dr. Justin Bolden MD Work Phone: [facility] 03-28-2025 07:11-0400 Respiratory rate 20 /min Dr. Justin Bolden MD Work Phone: 4(194)049-766996 [address] 03-28-2025 07:11-0400 SaO2% (BldA) [Mass fraction] 92 % Dr. Justin Bolden MD Work Phone: 6(634)112-269282 [place] [address] 03-28-2025 07:11-0400 Systolic blood pressure 147 mm[Hg] Dr. Justin Bolden MD Work Phone: [facility] 09-26-2024 09:52-0400 Body height 162.[address] Justin Bolden MD Work Phone: 7(916)761-008096 [address] 09-26-2024 09:52-0400 Body mass index (BMI) [Ratio] 39.8 kg/m2 Dr. Justin Bolden MD Work Phone: [facility] 09-26-2024 09:52-0400 Body weight 105.[address] Justin Bolden MD Work Phone: [facility] 09-26-2024 09:52-0400 Diastolic blood pressure 81 mm[Hg] Dr. Justin Bolden MD Work Phone: [facility] 09-26-2024 09:52-0400 Heart rate 74 /min Dr. Justin Bolden MD Work Phone: [facility] 09-26-2024 09:52-0400 Inhaled oxygen flow rate 3 L/min Dr. Justin Bolden MD Work Phone: [facility] 09-26-2024 09:52-0400 Respiratory rate 18 /min Dr. Justin Bolden MD Work Phone: 8(315)870-600582 [place] [address] 09-26-2024 09:52-0400 SaO2% (BldA) [Mass fraction] 90 % Dr. Justin Bolden MD Work Phone: 2(283)553-901151 [place] [address] 09-26-2024 09:52-0400 Systolic blood pressure 127 mm[Hg] Dr. Justin Bolden MD Work Phone: 0(321)354-752251 [place] [address] 09-01-2024 10:08-0500 Heart rate 74 /min Dr. Justin Bolden MD Work Phone: 7(478)048-958951 [place] [address] 09-01-2024 10:08-0500 Respiratory rate 18 /min Dr. Justin Bolden MD Work Phone: 4(259)244-141651 [place] [address] 09-01-2024 08:24-0500 Inhaled oxygen flow rate 4 L/min Dr. Justin Bolden MD Work Phone: 6(565)824-981851 [place] [address] 09-01-2024 08:18-0500 Body temperature 97.4 [degF] Dr. Justin Bolden MD Work Phone: 1(246)452-197551 [place] [address] 09-01-2024 08:18-0500 Diastolic blood pressure 64 mm[Hg] Dr. Justin Bolden MD Work Phone: 5(698)575-228851 [place] [address] 09-01-2024 08:18-0500 SaO2% (BldA) [Mass fraction] 93 % Dr. Justin Bolden MD Work Phone: 4(835)413-651051 [place] [address] 09-01-2024 08:18-0500 Systolic blood pressure 129 mm[Hg] Dr. Justin Bolden MD Work Phone: 0(842)124-668051 [place] [address] 09-01-2024 04:06-0500 Body mass index (BMI) [Ratio] 40.8 kg/m2 Dr. Justin Bolden MD Work Phone: 1(303)093-089851 [place] [address] 09-01-2024 04:06-0500 Body weight 108.[address] Justin Bolden MD Work Phone: 4(475)364-843951 [place] [address] 08-30-2024 13:51-0500 Body height 162.[address] Justin Bolden MD Work Phone: [facility] 10-14-2023 13:15-0400 Heart rate 85 /min Dr. Justin Bolden Work Phone: [facility] 10-14-2023 13:15-0400 Respiratory rate 22 /min Dr. Justin Bolden Work Phone: [facility] 10-14-2023 07:32-0400 Body temperature 98.3 [degF] Dr. Justin Bolden Work Phone: [facility] 10-14-2023 07:32-0400 Diastolic blood pressure 65 mm[Hg] Dr. Justin Bolden Work Phone: [facility] 10-14-2023 07:32-0400 Inhaled oxygen flow rate 2 L/min Dr. Justin Bolden Work Phone: [facility] 10-14-2023 07:32-0400 SaO2% (BldA) [Mass fraction] 94 % Dr. Justin Bolden Work Phone: [facility] 10-14-2023 07:32-0400 Systolic blood pressure 151 mm[Hg] Dr. Justin Bolden Work Phone: [facility] 10-14-2023 03:30-0400 Body mass index (BMI) [Ratio] 51.7 kg/m2 Dr. Justin Bolden Work Phone: [facility] 10-14-2023 03:30-0400 Body weight 136.[address] Justin Bolden Work Phone: [facility] 10-12-2023 09:48-0400 Body height 162.[address] Justin Bolden Work Phone: [facility] 10-12-2023 05:59-0400 Body temperature 98 [degF] Dr. Justin Bolden Work Phone: [facility] 10-12-2023 05:59-0400 Diastolic blood pressure 70 mm[Hg] Dr. Justin Bolden Work Phone: [facility] 10-12-2023 05:59-0400 Heart rate 74 /min Dr. Justin Bolden Work Phone: [facility] 10-12-2023 05:59-0400 Respiratory rate 20 /min Dr. Justin Bolden Work Phone: [facility] 10-12-2023 05:59-0400 SaO2% (BldA) [Mass fraction] 94 % Dr. Justin Bolden Work Phone: [facility] 10-12-2023 05:59-0400 Systolic blood pressure 140 mm[Hg] Dr. Justin Bolden Work Phone: [facility] 10-12-2023 03:36-0400 Inhaled oxygen flow rate 3 L/min Dr. Justin Bolden Work Phone: [facility] 10-12-2023 02:59-0400 Body height 162.[address] Justin Bolden Work Phone: [facility] 10-12-2023 02:59-0400 Body mass index (BMI) [Ratio] 43 kg/m2 Dr. Justin Bolden Work Phone: [facility] 10-12-2023 02:59-0400 Body weight 113.[address] Justin Bolden Work Phone: [facility] 09-03-2023 07:44-0500 Body height 162.[address] Justin Bolden Work Phone: [facility] 09-03-2023 07:44-0500 Body mass index (BMI) [Ratio] 42.7 kg/m2 Dr. Justin Bolden Work Phone: [facility] 09-03-2023 07:44-0500 Body temperature 97.1 [degF] Dr. Justin Bolden Work Phone: [facility] 09-03-2023 07:44-0500 Body weight 112.[address] Justin Bolden Work Phone: [facility] 09-03-2023 07:44-0500 Diastolic blood pressure 74 mm[Hg] Dr. Justin Bolden Work Phone: [facility] 09-03-2023 07:44-0500 Heart rate 74 /min Dr. Justin Bolden Work Phone: [facility] 09-03-2023 07:44-0500 Inhaled oxygen flow rate 2 L/min Dr. Justin Bolden Work Phone: [facility] 09-03-2023 07:44-0500 Respiratory rate 24 /min Dr. Justin Bolden Work Phone: [facility] 09-03-2023 07:44-0500 SaO2% (BldA) [Mass fraction] 94 % Dr. Justin Bolden Work Phone: [facility] 09-03-2023 07:44-0500 Systolic blood pressure 164 mm[Hg] Dr. Justin Bolden Work Phone: [facility] 08-28-2023 14:53-0500 Diastolic blood pressure 84 mm[Hg] Dr. Justin Bolden Work Phone: [facility] 08-28-2023 14:53-0500 Systolic blood pressure 178 mm[Hg] Dr. Justin Bolden Work Phone: [facility] 08-28-2023 14:21-0500 Body mass index (BMI) [Ratio] 42.7 kg/m2 Dr. Justin Bolden Work Phone: [facility] 08-28-2023 14:21-0500 Body weight 112.[address] Justin Bolden Work Phone: [facility] 08-28-2023 14:21-0500 Heart rate 60 /min Dr. Justin Bolden Work Phone: [facility] 08-28-2023 14:21-0500 Respiratory rate 20 /min Dr. Justin Bolden Work Phone: [facility] 08-28-2023 14:21-0500 SaO2% (BldA) [Mass fraction] 95 % Dr. Justin Bolden Work Phone: [facility] 05-11-2023 12:30-0500 Body height 162.[address] Justin Bolden Work Phone: [facility] 05-11-2023 12:30-0500 Body weight 108.[address] Justin Bolden Work Phone: [facility] 05-11-2023 12:30-0500 Heart rate 66 /min Dr. Justin Bolden Work Phone: [facility] 05-11-2023 12:30-0500 Inhaled oxygen flow rate 4 L/min Dr. Justin Bolden Work Phone: [facility] 05-11-2023 12:30-0500 SaO2% (BldA) [Mass fraction] 88 % Dr. Justin Bolden Work Phone: [facility] 04-14-2023 07:55-0400 Body mass index (BMI) [Ratio] 41.3 kg/m2 Dr. Justin Bolden Work Phone: [facility] 04-14-2023 07:55-0400 Body temperature 97.5 [degF] Dr. Justin Bolden Work Phone: [facility] 04-14-2023 07:55-0400 Body weight 109.[address] Justin Bolden Work Phone: [facility] 04-14-2023 07:55-0400 Diastolic blood pressure 58 mm[Hg] Dr. Justin Bolden Work Phone: [facility] 04-14-2023 07:55-0400 Heart rate 88 /min Dr. Justin Bolden Work Phone: [facility] 04-14-2023 07:55-0400 Inhaled oxygen flow rate 4 L/min Dr. Justin Bolden Work Phone: [facility] 04-14-2023 07:55-0400 Respiratory rate 18 /min Dr. Justin Bolden Work Phone: [facility] 04-14-2023 07:55-0400 SaO2% (BldA) [Mass fraction] 93 % Dr. Justin Bolden Work Phone: [facility] 04-14-2023 07:55-0400 Systolic blood pressure 101 mm[Hg] Dr. Justin Bolden Work Phone: [facility] 03-25-2023 17:22-0400 Body temperature 98.1 [degF] Dr. Justin Bolden Work Phone: [facility] 03-25-2023 17:22-0400 Diastolic blood pressure 63 mm[Hg] Dr. Justin Bolden Work Phone: [facility] 03-25-2023 17:22-0400 Heart rate 75 /min Dr. Justin Bolden Work Phone: [facility] 03-25-2023 17:22-0400 Inhaled oxygen flow rate 5 L/min Dr. Justin Bolden Work Phone: [facility] 03-25-2023 17:22-0400 Respiratory rate 18 /min Dr. Justin Bolden Work Phone: [facility] 03-25-2023 17:22-0400 SaO2% (BldA) [Mass fraction] 95 % Dr. Justin Bolden Work Phone: [facility] 03-25-2023 17:22-0400 Systolic blood pressure 148 mm[Hg] Dr. Justin Bolden Work Phone: [facility] 03-25-2023 03:44-0400 Body mass index (BMI) [Ratio] 40.1 kg/m2 Dr. Justin Bolden Work Phone: [facility] 03-25-2023 03:44-0400 Body weight [address] Justin Bolden Work Phone: [facility] 03-23-2023 11:53-0400 Body height 162.[address] Justin Bolden Work Phone: [facility] 03-19-2023 18:00-0400 Diastolic blood pressure 77 mm[Hg] Dr. Justin Bolden Work Phone: [facility] 03-19-2023 18:00-0400 Heart rate 81 /min Dr. Justin Bolden Work Phone: [facility] 03-19-2023 18:00-0400 Respiratory rate 16 /min Dr. Justin Bolden Work Phone: [facility] 03-19-2023 18:00-0400 SaO2% (BldA) [Mass fraction] 99 % Dr. Justin Bolden Work Phone: [facility] 03-19-2023 18:00-0400 Systolic blood pressure 193 mm[Hg] Dr. Justin Bolden Work Phone: [facility] 03-19-2023 17:22-0400 Body temperature 97.8 [degF] Dr. Justin Bolden Work Phone: [facility] 03-19-2023 17:22-0400 Inhaled oxygen flow rate 2 L/min Dr. Justin Bolden Work Phone: [facility] 03-19-2023 14:15-0400 Body height 162.[address] Justin Bolden Work Phone: [facility] 03-19-2023 14:15-0400 Body mass index (BMI) [Ratio] 51.8 kg/m2 Dr. Justin Bolden Work Phone: [facility] 03-19-2023 14:15-0400 Body weight [address] Justin Bolden Work Phone: [facility] 06-11-2022 13:55-0500 Diastolic blood pressure 80 mm[Hg] Dr. Justin Bolden Work Phone: [facility] 06-11-2022 13:55-0500 Systolic blood pressure 160 mm[Hg] Dr. Justin Bolden Work Phone: [facility] 06-11-2022 13:37-0500 Body height 157.[address] Justin Bolden Work Phone: [facility] 06-11-2022 13:37-0500 Body mass index (BMI) [Ratio] 43.1 kg/m2 Dr. Justin Bolden Work Phone: [facility] 06-11-2022 13:37-0500 Body weight 107.[address] Justin Bolden Work Phone: [facility] 06-11-2022 13:37-0500 Heart rate 75 /min Dr. Justin Bolden Work Phone: [facility] 06-11-2022 13:37-0500 Respiratory rate 24 /min Dr. Justin Bolden Work Phone: [facility] 06-11-2022 13:37-0500 SaO2% (BldA) [Mass fraction] 91 % Dr. Justin Bolden Work Phone: [facility] Encounters Encounter Date Encounter Type Care Provider Facility Start: 04-21-2025 ambulatory Justin Bolden Facility:[facility] Start: 04-17-2025 ambulatory Justin Bolden Facility:[facility] Start: 04-03-2025 End: 04-03-2025 Patient encounter procedure Kena WOMACK -[facility] Work Phone: Start: 04-03-2025 End: 04-03-[address] Justin Bolden MD Work Phone: -[facility] Start: 03-28-2025 End: 03-28-[address] Justin Bolden MD Work Phone: -Laboratory Start: 03-28-2025 End: 03-28-2025 Patient encounter procedure Jose Demiter PA -Laboratory Work Phone: Start: 03-28-2025 End: 03-28-2025 Patient encounter procedure Jose Demiter PA -[facility] Work Phone: Start: 03-28-2025 End: 03-28-[address] Justin Bolden MD Work Phone: -[facility] Start: 03-28-2025 End: 03-28-2025 ambulatory Justin Bolden Facility:[facility] Start: 11-01-2024 End: 11-01-2024 ambulatory Justin Bolden Facility:[facility] Start: 10-07-2024 End: 10-07-[address] Justin Bolden MD Work Phone: [facility] Work Phone: Start: 10-07-2024 End: 10-07-2024 Patient encounter procedure Kena Reynolds TRANSITIONAL CARE NURSE-C -[facility] Work Phone: Start: 10-07-2024 End: 10-07-2024 ambulatory Justin Bolden Facility:[facility] Start: 09-26-2024 End: 09-26-2024 Patient encounter procedure Sg Cao TRANSITIONAL CARE NURSE-C -[facility] Work Phone: Start: 09-26-2024 End: 09-26-2024 ambulatory Sg Cao TRANSITIONAL CARE NURSE Facility:[facility] Start: 09-08-2024 End: 09-08-[address] Justin Bolden MD Work Phone: [facility] Work Phone: Start: 09-08-2024 End: 09-08-[address] Justin Bolden MD -Laboratory, [facility] Start: 09-08-2024 End: 09-08-2024 ambulatory Justin Bolden Facility:[facility] Start: 09-01-2024 Non-patient / Non-visit Jadon Vidal nd DO -[facility] Start: 09-01-2024 Non-patient / Non-visit Dr. Blaise Alvarez [facility] Work Phone: Start: 08-31-2024 Non-patient / Non-visit Jadon Vidal nd DO -[facility] Start: 08-31-2024 Non-patient / Non-visit Dr. Blaise Alvarez [facility] Work Phone: Start: 08-30-2024 Non-patient / Non-visit Dr. Blaise Alvarez DO [facility] Work Phone: Start: 08-30-2024 Non-patient / Non-visit Jadonmisti Vidal piyush DO -[facility] Start: 08-29-2024 Non-patient / Non-visit Dr. Blaise Alvarez DO -[facility] Work Phone: Start: 08-28-2024 ambulatory Chantelle Chavarria Facility :[facility] Start: 08-28-2024 End: 09-01-2024 Evaluation and management of inpatient Dr. Blaise العلي DO -[facility] Work Phone: Start: 08-01-2024 End: 08-01-[address] Justin Bolden MD -Laboratory, [facility] Start: 08-01-2024 End: 08-01-2024 ambulatory Justin Bolden Facility:[facility] Start: 07-01-2024 ambulatory Justin Bolden Facility:[facility] Start: 10-14-2023 Non-patient / Non-visit Dr. Domenico Bolden Work Phone: [facility] Work Phone: Start: 10-13-2023 Non-patient / Non-visit Dr. Domenico Bolden Work Phone: [facility] [facility] Work Phone: Start: 10-12-2023 End: 10-14-2023 Evaluation and management of inpatient Dr. Justin Bolden Work Phone: [facility] Work Phone: Start: 10-12-2023 End: 10-14-[address] Justin Bolden Work Phone: [facility] Work Phone: Start: 09-03-2023 End: 09-03-[address] Justin Bolden Work Phone: [facility] Work Phone: Start: 09-03-2023 End: 09-03-[address] Justin Bolden Work Phone: [facility] Work Phone: Start: 08-28-2023 End: 08-28-[address] Justin Bolden Work Phone: [facility] Work Phone: Start: 05-19-2023 End: 05-19-[address] Justin Bolden Work Phone: [facility] Work Phone: Start: 05-19-2023 End: 05-19-[address] Justin Bolden Work Phone: [facility]-Sleep Lab Work Phone: Start: 05-15-2023 Non-patient / Non-visit Dr. Domenico Bolden Work Phone: [facility] Start: 05-11-2023 End: 05-11-[address] Justin Bolden Work Phone: [facility] Work Phone: Start: 05-11-2023 End: 05-11-[address] Justin Bolden Work Phone: [facility]-Pulmonary Services/Neurology Work Phone: Start: 05-07-2023 Non-patient / Non-visit Dr. Domenico Bolden Work Phone: [facility] Start: 05-06-2023 End: 05-06-[address] Justin Bolden Work Phone: [facility] Work Phone: Start: 05-06-2023 End: 05-06-[address] [facility] Work Phone: Start: 04-14-2023 End: 04-14-[address] Justin Bolden Work Phone: [facility] [place] Work Phone: Start: 04-03-2023 Non-patient / Non-visit Dr. Domenico Bolden Work Phone: [facility] Work Phone: Start: 03-25-2023 Non-patient / Non-visit Dr. Domenico Bolden Work Phone: [facility] Work Phone: Start: 03-24-2023 Non-patient / Non-visit Dr. Domenico Bolden Work Phone: [facility] Work Phone: Start: 03-24-2023 Non-patient / Non-visit Dr. Domenico Bolden Work Phone: [facility] Start: 03-23-2023 Non-patient / Non-visit Dr. Domenico Bolden Work Phone: [facility] Work Phone: Start: 03-23-2023 Non-patient / Non-visit Dr. Domenico Bolden Work Phone: [facility] Start: 03-22-2023 Non-patient / Non-visit Dr. Domenico Bolden Work Phone: [facility] Work Phone: Start: 03-21-2023 Non-patient / Non-visit Dr. Domenico Bolden Work Phone: [facility] Work Phone: Start: 03-20-2023 Non-patient / Non-visit Dr. Domenico Bolden Work Phone: [facility] Work Phone: Start: 03-20-2023 Non-patient / Non-visit Dr. Domenico Bolden Work Phone: [facility] Start: 03-20-2023 Non-patient / Non-visit Dr. Domenico Bolden Work Phone: [facility] Start: 03-19-2023 End: 03-25-2023 Evaluation and management of inpatient Dr. Justin Bolden Work Phone: [facility] Work Phone: Start: 03-19-2023 Non-patient / Non-visit Dr. Domenico Bolden Work Phone: [facility] Work Phone: Start: 09-12-2022 End: 09-12-[address] Justin Bolden Work Phone: [facility] Work Phone: Start: 09-12-2022 End: 09-12-[address] Justin Bolden Work Phone: [facility] Start: 06-11-2022 End: 06-11-[address] Justin Bolden Work Phone: [facility] Procedures Date Procedure Procedure Detail Performing Clinician Start: 10-07-[address] Justin Bolden MD Work Phone: Start: 08-30-[address] Justin hernandez MD Work Phone: Start: 08-29-[address] acid [address] Justin ochoa MD Work Phone: Start: 08-29-2024 Legionella pneumophila antigen assay Dr. Justin Bolden MD Work Phone: Start: 08-29-[address] Justin Bolden MD Work Phone: Start: 08-29-2024 Streptococcus pneumoniae antigen assay Dr. Justin Bolden MD Work Phone: Start: 08-29-[address] Justin Bolden MD Work Phone: Start: 08-28-2024 Plain chest X-ray Dr. Justin Bolden MD Work Phone: Start: 08-28-2024 Computed tomography of thoracic spine without contrast Dr. Justin Bolden MD Work Phone: Start: 08-28-2024 CT of abdomen and pelvis without contrast Dr. Justin Bolden MD Work Phone: Start: 08-28-2024 CT of lumbar spine Dr. Justin Bolden MD Work Phone: Start: 08-28-2024 CT of head without contrast Dr. Justin vogel MD Work Phone: Start: 08-28-2024 SARS-CoV-2, Influenza & RSV (PCR) Dr. Domenico Bolden MD Work Phone: Start: 10-13-2023 CT angiography of chest with contrast Dr. Justin Bolden Work Phone: Start: 10-13-2023 Plain chest X-ray Dr. Justin Bolden Work Phone: Start: 10-12-[address] Justin Bolden Work Phone: Start: 10-12-2023 Plain chest X-ray Dr. Justin Bolden Work Phone: Start: 10-12-2023 CT of head without contrast Dr. Justin vogel Work Phone: Start: 03-21-2023 CT angiography of chest with contrast Dr. Justin Bolden Work Phone: Start: 03-19-2023 CT of chest without contrast Dr. Justin ochoa Work Phone: Start: 03-19-2023 Plain chest X-ray Dr. Justin Bolden Work Phone: Start: 03-19-[address] Justin Bolden Work Phone: Start: 03-19-2023 SARS-CoV-2 & FLU Antigen (Rapid) Dr. Lauren Bolden Work Phone: Plan of Treatment Date Care Activity Detail Author Start: 04-03-2025 End: 04-03-2025 Patient encounter procedure COPD (chronic obstructive pulmonary disease) -[facility] Work Phone: Start: 09-01-2024 Patient discharge [facility] Start: 08-31-2024 Referral to service [facility] Start: 08-30-2024 [facility] Start: 08-30-2024 Physiotherapy of chest [facility] Start: 08-29-2024 Referral to gastroenterology service [facility] Start: 08-29-2024 Following clinical pathway protocol [facility] Start: 08-29-2024 Aspiration precautions [facility] Start: 08-29-2024 Assessment of risk of venous thromboembolism [facility] Start: 08-29-2024 Care regimes management [facility] Start: 08-29-2024 Elevation of head of bed [facility] Start: 08-29-2024 Fall prevention [facility] Start: 08-29-2024 Inhalation therapy procedure [facility] Start: 08-29-2024 Insertion of catheter into peripheral vein [facility] Start: 08-29-2024 Introduction of urinary catheter [facility] Start: 08-29-2024 Measuring intake and output [facility] Start: 08-29-2024 Methicillin resistant Staphylococcus aureus screening test [facility] Start: 08-29-2024 Notification of physician [facility] Start: 08-29-2024 Oxygen therapy [facility] Start: 08-29-2024 Patient education [facility] Start: 08-29-2024 Providing care according to standard [facility] Start: 08-29-2024 Provision of activity privileges [facility] Start: 08-29-2024 Referral to occupational therapist [facility] Start: 08-29-2024 Referral to service [facility] Start: 08-29-2024 Speech therapy assessment [facility] Start: 08-29-2024 End: 08-29-2024 [facility] Start: 08-28-2024 Admission procedure [facility] Start: 10-14-2023 Patient discharge [facility] Start: 10-13-2023 Referral to service [facility] Start: 10-12-2023 Notification of physician [facility] Start: 10-12-2023 [facility] Start: 10-12-2023 Following clinical pathway protocol [facility] Start: 10-12-2023 Assessment of risk of venous thromboembolism [facility] Start: 10-12-2023 Cardiac monitoring [facility] Start: 10-12-2023 Fall prevention [facility] Start: 10-12-2023 Inhalation therapy procedure [facility] Start: 10-12-2023 Insertion of catheter into peripheral vein [facility] Start: 10-12-2023 Introduction of urinary catheter [facility] Start: 10-12-2023 Measuring intake and output [facility] Start: 10-12-2023 Oxygen therapy [facility] Start: 10-12-2023 Providing care according to standard [facility] Start: 10-12-2023 Provision of activity privileges [facility] Start: 10-12-2023 Referral to occupational therapist [facility] Start: 10-12-2023 Referral to service [facility] Start: 10-12-2023 Tobacco use cessation education [facility] Start: 10-12-2023 [facility] Start: 10-12-2023 Verification routine [facility] Start: 10-12-2023 Admission procedure [facility] Start: 10-12-2023 Patient referral to dietitian [facility] Start: 03-25-2023 Patient discharge [facility] Start: 03-23-2023 Consultation [facility] Start: 03-20-2023 End: 03-21-2023 [facility] Start: 03-20-2023 Notification of physician [facility] Start: 03-20-2023 Inhalation therapy procedure [facility] Start: 03-19-2023 Following clinical pathway protocol [facility] Start: 03-19-2023 Assessment of risk of venous thromboembolism [facility] Start: 03-19-2023 Insertion of catheter into peripheral vein [facility] Start: 03-19-2023 Measuring intake and output [facility] Start: 03-19-2023 Oxygen therapy [facility] Start: 03-19-2023 Providing care according to standard [facility] Start: 03-19-2023 Provision of activity privileges [facility] Start: 03-19-2023 Tobacco use cessation education [facility] Start: 03-19-2023 [facility] Start: 03-19-2023 D-dimer assay, quantitative [facility] Start: 03-19-2023 Verification routine [facility] Start: 03-19-2023 Admission procedure [facility] Bilirubin measuremen t, urine [facility] Hemoglobin [Presence ] in Urine [facility] Magnesium [Mass/volu me] in Serum or Plasma [facility] Measurement of keton es in urine using dipstick [facility] Microscopic urinalysis [facility] Organism count, micr oscopic method [facility] Patient Education Diabetes Food Shop Meals Prep Diabetes Food Tips Ch Diabetes: Meal Planning Diabetes Inspect Feet [facility] Work Phone: Patient referral [facility] Work Phone: pH of Urine [facility] Polysomnography [facility] Procalcitonin [Mass/ volume] in Serum or Plasma [facility] Specific gravity of Urine [facility] Urinalysis, blood, qualitative [facility] Urine dipstick for glucose [facility] Urine dipstick for leukocyte esterase [facility] Urine dipstick for nitrite [facility] Urine dipstick for protein [facility] Urine examination [facility] Urine microscopy: epithelial cells [facility] Urine microscopy: red cells [facility] Urine Microscopy: wh ite cells [facility] Urobilinogen [Presen ce] in Urine [facility] US Heart [facility] White blood cell count [facility] Immunizations Immunization Date Immunization Notes Care Provider Fa cility 04-19-2024 influenza, seasonal, injectable, preservative free Dr. Justin Bolden MD Work Phone: [facility] 06-25-2023 Pneumococcal Vaccine PCV20 (Prevnar 20) Dr. Justin Bolden Work Phone: [facility] 06-05-2023 pneumococcal conjuga te vaccine, [address] Justin Bolden Work Phone: [facility] 05-04-2023 Covid (Spikevax) Dr. Justin ochoa Work Phone: [facility] 05-04-2023 Influenza High-Dose Quadrivalent Dr. Justin Bolden Work Phone: [facility] 05-04-2023 RSV Adult BiValent (Abrysvo) Dr. Justin Bolden Work Phone: [facility] 05-01-2022 Influenza High-Dose Quadrivalent Dr. Justin Bolden Work Phone: [facility] 11-12-2021 Covid (Moderna) Dr. Justin vogel Work Phone: [facility] 05-17-2021 Covid (Moderna) Dr. Justin vogel Work Phone: [facility] 10-01-2020 Covid (Moderna) Dr. Justin vogel Work Phone: [facility] 09-03-2020 Covid (Moderna) Dr. Justin vogel Work Phone: [facility] 04-28-2016 influenza, injectabl e, quadrivalent, preservative free Dr. Justin Bolden Work Phone: [facility] 04-28-2016 influenza, seasonal, injectable Dr. Justin Bolden Work Phone: [facility] 04-28-2016 pneumococcal conjuga te vaccine, [address] Justin Bolden Work Phone: [facility] Payers Date Payer Category Payer Self-pay [id number] 2015 Medicare [id number] 2015 Private Health Insurance [facility] [id number] Unknown [id number] 2.16.8 [id number] Unknown [id number] 2.16.8 [id number] Unknown [id number] 2.16.8 [id number] Unknown [id number] 2.16.8 [id number] Unknown [id number] 2.16.8 [id number] Unknown [id number] 2.16.8 [id number] Unknown [id number] 2.16.8 [id number] Unknown [id number] 2.16.8 [id number] Unknown [id number] 2.16.8 [id number] Unknown [id number] 2.16.8 [id number] Unknown [id number] 2.16.8 [id number] Unknown [id number] 2.16.8 [id number] Unknown [id number] 2.16.8 [id number] Unknown [id number] 2.16.8 [id number] Unknown [id number] 2.16.8 [id number] Unknown [id number] 2.16.8 [id number] Unknown [id number] 2.16.8 [id number] Unknown [id number] 2.16.8 [id number] Unknown [id number] 2.16.8 [id number] Unknown [id number] 2.16.8 [id number] Unknown [id number] 2.16.8 [id number] Social History Date Type Detail Facility Start: 06-11-2022 End: 10-12-2023 Tobacco smoking status ILIS Unknown if ever smoked [facility] Start: 10-22-2016 Cigarettes [facility] Start: 1950 Sex Assigned At Female [facility] Start: 08-28-2024 End: 09-26-2024 Tobacco smoking status NHIS Ex-smoker (finding) [facility] Start: 09-20-2024 End: 10-10-2024 Sex Female (finding) [facility] Sex Female [facility] NEGATED: Highlighted row Not [facility] Goals Date Patient Goal Desired Activity /State Functional Status Date Assessment Result Facility 09-01-2024 Functional status Chair [facility] Work Phone: 10-14-2023 Functional status Ambulates;Marco Antonio r;Bathroom Privilege [facility] Work Phone: 03-25-2023 Functional status Ambulates;Up a d charlene;Dangle Feet;Chair;Active Range of Motion [facility] Work Phone: Mental Status Date Assessment Result Facility 09-01-2024 Cognitive function Voice/Name [facility] Work Phone: 10-14-2023 Cognitive function Voice/Name [facility] Work Phone: 03-25-2023 Cognitive function Voice/Name [facility] Work Phone: Clinical Notes 03-19-2023 to 04-03-2025 Note Date & Type Note Facility 04-03-2025 Progress note [facility] 03-28-2025 Evaluation note Diagnosis Onset Date Resolution Atrial fibrillation acute Septe mber 2024 1:52pm Lower extremity edema acute Sep tember 2024 1:52pm Atherosclerotic heart disease of [place] coronary artery without angina pectoris chronic March 28, 2025 1:52pm Essential (primary) hypertension chronic Alayna 23rd, 2025 1:52pm Hyperlipidemia chronic March 28, 2025 1:52pm LBBB (left bundle branch block) chronic March 28, 2025 1:52pm Nonischemic cardiomyopathy resolved March 28, 2025 1:52pm COPD (chronic obstructive pulmonary disease) chronic March 10:23am Hypoxia chronic March 10:23am Obesity chronic March 10:23am Smoking greater than 30 pack years chronic April 03, 2025 10:23am [facility] Work Phone: [phone]) 831-335309-23-2025 Progress [facility] [address] [place], [place] [address] OFFICE VISIT Date of Service: 03/28/25 MR#: [id number] Acct: [id number] Name: SALLY AYALA Rep #: [id number] : 1950 Provider: DOMENICO Watts Age/Sex: 74/F Location: [facility] Status: Signed HPI HPI History of Present Illness Details: Sally Ayala is a 74-year-old female who presents to office today for follow-up for monitoring her cardiovascular health. She has a history of nonischemic cardiomyopathy, coronary artery disease involving single-vessel diagonal branch, left bundle branch block, hypertension, hyperlipidemia and tobacco abuse. Upon presentation today, patient reports doing fairly well. She reports significant bilateral LE edema over the past few months in which she has had to purchase new shoes and have her help put her shoes on. She reports fatigue described as having "no get up and go" that has been more noticed over the last 6 months. She reports SOB with little exertion. She has been on O2 support for abouta year now. Further ROS below. 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 Is patient in pain?: No Allergies Iodinated Contrast Media (CONTRASTS) Allergy (Verified 03/28/25 13:59) Other meperidine (From Demerol) Allergy (Verified 03/28/25 13:59) Unknown Penicillins (PCN) Allergy (Verified 03/28/25 13:59) Rash Medications ?Medication ?Instructions ?Recorded ?Confirmed ?Type albuterol sulfate 90 mcg/actuation 2 puff inhalation Q 4H PRN 10/02/16 03/28/25 History aerosol inhaler SHORTNESS OF BREATH/WHEEZING aspirin 81 mg tablet,delayed 81 mg PO DAILY HEART HEAL TH 10/02/16 03/28/25 History release imipramine HCl 25 mg tablet 25 - 50 mg PO QHS BLADDER CONTROL 10/02/16 03/28/25 History simvastatin 40 mg tablet 40 mg PO QHS CHOLESTEROL 03/28/25 History Nebulizer machine #1 ea 09/15/23 11/01/24 Rx bupropion HCl 300 mg 24 hr tablet, 300 mg PO DAILY [facility] 10/12/23 03/28/25 History extended release carvedilol 25 mg tablet 25 mg PO Q12H HEART 10/12/23 03/28/25 History ipratropium 20 mcg-albuterol 100 1 puff inhalation BID 03/08/24 03/28/25 History mcg/actuation mist for inhalation (Combivent Respimat) metformin 1,000 mg tablet 1,000 mg PO BID diabetes 09/2603/28/25 History apixaban 5 mg tablet (Eliquis) 5 mg PO BID afib 30 day s #60 tabs 03/29/24 03/28/25 Rx pantoprazole 40 mg tablet,delayed 40 mg PO BID gerd 30 days #60 tabs 03/29/24 03/28/25 Rx release cholecalciferol (vitamin D3) 25 3,000 unit PO DAILY vi tamin 09/26/24 03/28/25 History mcg (1,000 unit) capsule lisinopril 40 mg tablet 40 mg PO QDAY blood pressure 09/26/24 03/28/25 History fluticasone fur. 200 mcg-umeclid 1 inh inhalation LOVE Y breathing 10/11/24 03/28/25 Rx 62.5 mcg-vilant 25 mcg #60 ea inhalat.powder (Trelegy Ellipta) amlodipine 5 mg tablet 5 mg PO DAILY blood pressure #30 03/28/25 03/28/25 Rx tabs Ejection fraction %: 65 Have you fallen in the past year?: Yes PFSH Medical History Acute and chronic respiratory failure with hypoxia Pneumonia Diabetes mellitus, type 2 Chronic hypoxic respiratory failure, on home oxygen therapy Morbid obesity CKD (chronic kidney disease), stage III Sleep apnea Nonischemic cardiomyopathy Essential (primary) hypertension LBBB (left bundle branch block) COPD (chronic obstructive pulmonary disease) Hyperlipidemia Nicotine abuse Atherosclerotic heart disease of [place] coronary artery without angina pectoris Bronchitis Surgical History History of colonoscopy with polypectomy History of total hip arthroplasty History of cholecystectomy History of cataract surgery History of appendectomy History of left heart catheterization (09/03/11) Family History Mother Hypertension Diabetes Father Cancer Social History household members: none Smoking Status: Former smoker quit date: 04/04/23 how long ago did patient quit smokin alcohol intake: never substance use type: does not use caffeine: Yes Type: carbonated beverages Number of servings: 1 ROS Const Const: Positive for fatigue; Negative for weakness, headache(s) or frequent falls Eyes Eyes: Negative for blurry vision ENT ENT: Negative for headache(s), dizziness or Nosebleed/epistaxis Cardio Chest Pain: No Palpitations: No Edema: Bilateral Muscle aches with walking: None Resp Respiratory: Positive for SOB with activity and SOB at rest; Negative for SOB orthopnea\\SOB lying down GI GI: Negative nausea, vomiting, heartburn, bright, red blood in stools or black,tarry stools : Negative for hematuria Neuro Neuro: Negative for dizziness, lightheadedness, near syncope, syncope, frequent falls, headache(s),weakness or blurry vision Endo Endo: Positive for fatigue Cardiology Exam Const Appearance: cooperative, comfortable, no acute distress and well developed; Negative diaphoretic or ill appearing Nutritional Appearance: obese Orientation: alert and oriented x3 Ambulating via wheelchair. O2 NC in place. Head Head: normal to inspection, normocephalic and atraumatic Ears: hearing grossly normal bilaterally Nose: external nose normal and Negative epistaxis Face and Sinus: face symmetric Eyes General: appearance normal, both eyes and all related structures Eyelids: eyelids normal Conjunctivae: conjunctivae normal; Negative scleral icterus EOM: EOM intact bilaterally Neck Neck: no JVD Carotids: normal carotid upstroke; Negative bruit Neck Mass: Negative Neck mass Chest Chest inspection: normal respiratory effort; Negative respiratory distress, audible wheezes or tachypneic Auscultation: Left: Rhonchi and Right: Clear to Auscultation Cardio Rate: regular rate Rhythm: regular rhythm Heart sounds: S1 normal and S2 normal Distant heart tones secondary to body habitus. Exam limited. GI GI: obese Neuro General: patient alert, patient awake, patient oriented x3 and moves all extremities Skin Skin: no rashes or lesions noted Extremities Pulses: Normal: Right Posterior Tibial Pulse, Left Posterior Tibial Pulse, RightRadial Pulse and Left Radial Pulse Lower Extremity Edema: +1: Bilateral Psych Psychological: normal affect Supplemental Info Supplemental Information Echocardiogram 03/24/2024 Interpretation Summary The study was technically difficult. Mild concentric left ventricular hypertrophy. The left ventricular ejection fraction is 65 %. Moderate calcification of the noncoronary cusp of the aortic valve. Mild aortic valve stenosis Echocardiogram 03/19/2023: Interpretation Summary Normal LV size. Left ventricular systolic function is normal. The estimated ejection fraction is 70 %. Stage 1 diastolic dysfunction. Moderate focal aortic valve calcification. Echocardiogram 06/2021: Normal LV size. Left ventricular systolic function is normal. The estimated ejection fraction is 60 %. Stage 1 diastolic dysfunction. Moderate concentric left ventricular hypertrophy. Contrast injection was performed. The study was technically difficult. Labs: HDL Cholesterol, (40-) 60 mg/dL Cholesterol, (<=200) 134 mg/dL Triglycerides, (-199) 91 mg/dL Diagnostics: Electrocardiogram Echocardiogram Chest X-Ray Chest CTA Abdomen/Pelvis CT Venous Doppler Study Pulmonary: Pulmonary Function Test Pulmonary Exercise Test Past Visits: Cardiology Visit 03/28/25 Assessment and Plan Assessment and Plan (1) Lower extremity edema: Status: Acute Plan: Patient reports new onset lower extremity edema. She is managed with amlodipinefor her hypertension. She also has a history of nonischemic cardiomyopathy. Plan: Will obtain echocardiogram. Will obtain NT proBNP today. Decreased amlodipine to 5 mg and asked patient to monitor her blood pressure and notify our office with persistently elevated or low readings. (2) Hyperlipidemia: Status: Chronic Qualifiers: Hyperlipidemia type: pure hypercholesterolemia Qualified Code(s): E78.00 - Pure hypercholesterolemia, unspecified; E78.0 - Pure hypercholesterolemia Plan: Patient has a history of hyperlipidemia. Most recent lipid panel available to review was greater than 6 months ago. LDL goal of 70 or lower given her history of CAD. Plan: Will obtain updated lipid panel. Recommend patient continue simvastatin nightly. Encourage lifestyle and risk factor modification. (3) LBBB (left bundle branch block): Status: Chronic Plan: Patient has a known left bundle branch block. (4) Essential (primary) hypertension: Status: Chronic Plan: Blood pressure in office today 147/90, 140/68 on recheck. Patient reports bloodpressure usually controlled and feels that elevated reading today is abnormal for her. Plan: Recommend patient decrease amlodipine to 5 mg daily secondary to lower extremity edema. Recommend patient monitor blood pressure and home environment 2-3 times a week over the next 2 weeks and notify our office with findings. If this remains elevated in her home environment, adjustments to antihypertensive agents will be recommended. (5) Atherosclerotic heart disease of [place] coronary artery without angina pectoris: Status: Chronic Qualifiers: [place] vs. transplanted heart: [place] heart Qualified Code(s): I25.10 - Atherosclerotic heart disease of [place] coronary artery without angina pectoris Plan: Patient has a history of coronary artery disease. Her heart catheterization in 2011 demonstrated 70-80% eccentric hazy proximal to mid stenosis of the first diagonal and mild to moderate stenosis throughout all other arteries. Plan: Will obtain echocardiogram given reported lower extremity edema. Depending on findings of echocardiogram, will consider additional testing if warranted. Recommend patient continue statin, beta-aquilino and aspirin. (6) Nonischemic cardiomyopathy: Status: Resolved Plan: Patient has a history of nonischemic cardiomyopathy with an noted reduced ejection fraction during cardiac catheterization in 2011. Most recent echocardiogram 03/24/2024 demonstrates an ejection fraction of 65%. Patient doesreport new worsening of her lower extremity edema. Plan: Will obtain echocardiogram. Recommend patient continue lisinopril and carvedilol. (7) Atrial fibrillation: Status: Acute Qualifiers: Atrial fibrillation type: unspecified Qualified Code(s): I48.91 - Unspecified atrial fibrillation Plan: Patient has a history of atrial fibrillation. She appears to be in normal sinusrhythm on exam today. She is anticoagulated with Eliquis For CVA protection. Most recent EKG available to review dates 08/28/2024 and this demonstrates normalsinus rhythm. Plan: Recommend patient continue carvedilol and Eliquis. Orders: Orders CBC W/Diff, Automated 03/28/25 I25.10 - Atherosclerotic heart disease of native[place]onary artery without angina pectoris Comprehensive Metabolic Profil 03/28/25 E78.0 - Pure hypercholesterolemia, E78.00 - Pure hypercholesterolemia, unspecified, I10 - Essential (primary) hypertension, R60.0 - Localized edema Lipid Profile 03/28/25 E78.5 - Hyperlipidemia, unspecified Pro- Brain NATRIURETIC PEPTIDE 03/28/25 R06.02 - Shortness of breath, R60.0 - Localized edema Echo Complete 03/28/25 I42.8 - Other cardiomyopathies, R06.02 - Shortness of breath, R60.0 - Localized edema Medications: Changed From amlodipine 10 mg PO DAILY 30 tabs 1RF blood pressure To amlodipine 5 mg PO DAILY 30 tabs 3RF blood pressure Plan 1. Decrease Amlodipine to 5mg daily. Monitor your blood pressure 2-3 times per week over the next 2weeks. Call our office if BP is persistently elevated (>135/85) or low. 2. Blood work today. Depending on these result, will consider diuretic plan. 3. The hospital should call you schedule your echocardiogram. If you do not hearfrom them in 1 weeks, contact scheduling. Patient will follow-up in 2 months or sooner, if needed. Thank you for allowing me to participate in the care of your patient. Please don't hesitate to callif any issues arise. This note was generated using a voice recognition system and there may be incorrect words, spelling, or punctuation that were not noted when reviewing theoffice note prior to saving. Portions of this documentation were copied and pasted from previous office visitnotes to provide a cohesive continuity of the history. The note has been reviewed, edited, and updated, as necessary. Patient Instructions: 1. Decrease Amlodipine to 5mg daily. Monitor your blood pressure 2-3 times per week over the next 2weeks. Call our office if BP is persistently elevated (>135/85) or low. 2. Blood work today. Depending on these result, will consider diuretic plan. 3. The hospital should call you schedule your echocardiogram. If you do not hearfrom them in 1 weeks, contact scheduling. 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 transplanted heart: [place] heart Nonischemic cardiomyopathy I42.8 Atrial fibrillation, unspecified type I48.91 Atrial fibrillation type: unspecified Coding Level of Care Code Off vis,est,level 4 Diagnoses Lower extremity edema R60.0 Pure hypercholesterolemia E78.00; E78.0 Hyperlipidemia type: pure hypercholesterolemia LBBB (left bundle branch block) I44.7 Essential (primary) hypertension I10 Atherosclerosis of [place] coronary artery of [place] heart without angina pectoris I25.10 [place] vs. transplanted heart: [place] heart Nonischemic cardiomyopathy I42.8 Atrial fibrillation, unspecified type I48.91 Atrial fibrillation type: unspecified Clinical Quality Measures Falls Risk Screening/Assistive Devices Have you fallen in the past year?: Yes Cardiac Ejection fraction %: 65 03/29/25 0802 r PA> Date _ Jose ACUÑA 03/29/25 1216 Cosigner Signature: Date (if applicable) Kamaljit Trevizo MD CC: Dr. Justin Bolden MD ~ [facility]09-23-2025 Progress note Author Jose Kam [facility] Note Date/Time March 28, 2025 2:49pm [facility] [address] [place] [address]. [address] [place] [address] OFFICE VISIT Date of Service: 03/28/25 MR#: [id number] Acct: [id number] Name: SALLY AYALA Rep #: [id number] : 1950 Provider: DOMENICO Watts Age/Sex: 74/F Location: [facility] [place] Status: Signed HPI HPI History of Present Illness Details: Sally Ayala is a 74-year-old female who presents to office today for follow-up for monitoring her cardiovascular health. She has a history of nonischemic cardiomyopathy, coronary artery disease involving single-vessel diagonal branch, left bundle branch block, hypertension, hyperlipidemia and tobacco abuse. Upon presentation today, patient reports doing fairly well. She reports significant bilateral LE edema over the past few months in which she has had to purchase new shoes and have her help put her shoes on. She reports fatigue described as having "no get up and go" that has been more noticed over the last 6 months. She reports SOB with little exertion. She has been on O2 support for about a year now. Further ROS below. 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 Is patient in pain?: No Allergies Iodinated Contrast Media (CONTRASTS) Allergy (Verified 03/28/25 13:59) Other meperidine (From Demerol) Allergy (Verified 03/28/25 13:59) Unknown Penicillins (PCN) Allergy (Verified 03/28/25 13:59) Rash Medications ?Medication ?Instructions ?Recorded ?Confirmed ?Type albuterol sulfate 90 mcg/actuation 2 puff inhalation Q 4H PRN 10/02/16 03/28/25 History aerosol inhaler SHORTNESS OF BREATH/WHEEZING aspirin 81 mg tablet,delayed 81 mg PO DAILY HEART HEAL TH 10/02/16 03/28/25 History release imipramine HCl 25 mg tablet 25 - 50 mg PO QHS BLADDER CONTROL 10/02/16 03/28/25 History simvastatin 40 mg tablet 40 mg PO QHS CHOLESTEROL 03/28/25 History Nebulizer machine #1 ea 09/15/23 11/01/24 Rx bupropion HCl 300 mg 24 hr tablet, 300 mg PO DAILY men [employer] health 10/12/23 03/28/25 History extended release carvedilol 25 mg tablet 25 mg PO Q12H HEART 10/12/23 03/28/25 History ipratropium 20 mcg-albuterol 100 1 puff inhalation BID 03/08/24 03/28/25 History mcg/actuation mist for inhalation (Combivent Respimat) metformin 1,000 mg tablet 1,000 mg PO BID diabetes 09/2603/28/25 History apixaban 5 mg tablet (Eliquis) 5 mg PO BID afib 30 day s #60 tabs 03/29/24 03/28/25 Rx pantoprazole 40 mg tablet,delayed 40 mg PO BID gerd 30 days #60 tabs 03/29/24 03/28/25 Rx release cholecalciferol (vitamin D3) 25 3,000 unit PO DAILY vi tamin 09/26/24 03/28/25 History mcg (1,000 unit) capsule lisinopril 40 mg tablet 40 mg PO QDAY blood pressure 09/26/24 03/28/25 History fluticasone fur. 200 mcg-umeclid 1 inh inhalation LOVE Y breathing 10/11/24 03/28/25 Rx 62.5 mcg-vilant 25 mcg #60 ea inhalat.powder (Trelegy Ellipta) amlodipine 5 mg tablet 5 mg PO DAILY blood pressure #30 03/28/25 03/28/25 Rx tabs Ejection fraction %: 65 Have you fallen in the past year?: Yes [facility] Medical History Acute and chronic respiratory failure with hypoxia Pneumonia Diabetes mellitus, type 2 Chronic hypoxic respiratory failure, on home oxygen therapy Morbid obesity CKD (chronic kidney disease), stage III Sleep apnea Nonischemic cardiomyopathy Essential (primary) hypertension LBBB (left bundle branch block) COPD (chronic obstructive pulmonary disease) Hyperlipidemia Nicotine abuse Atherosclerotic heart disease of [place] coronary artery without angina pectoris Bronchitis Surgical History History of colonoscopy with polypectomy History of total hip arthroplasty History of cholecystectomy History of cataract surgery History of appendectomy History of left heart catheterization (09/03/11) Family History Mother Hypertension Diabetes Father Cancer Social History household members: none Smoking Status: Former smoker quit date: 04/04/23 how long ago did patient quit smokin alcohol intake: never substance use type: does not use caffeine: Yes Type: carbonated beverages Number of servings: 1 ROS Const Const: Positive for fatigue; Negative for weakness, headache(s) or frequent falls Eyes Eyes: Negative for blurry vision ENT ENT: Negative for headache(s), dizziness or Nosebleed/epistaxis Cardio Chest Pain: No Palpitations: No Edema: Bilateral Muscle aches with walking: None Resp Respiratory: Positive for SOB with activity and SOB at rest; Negative for SOB orthopnea\\SOB lying down GI GI: Negative nausea, vomiting, heartburn, bright, red blood in stools or black,tarry stools : Negative for hematuria Neuro Neuro: Negative for dizziness, lightheadedness, near syncope, syncope, frequent falls, headache(s), weakness or blurry vision Endo Endo: Positive for fatigue Cardiology Exam Const Appearance: cooperative, comfortable, no acute distress and well developed; Negative diaphoretic or ill appearing Nutritional Appearance: obese Orientation: alert and oriented x3 Ambulating via wheelchair. O2 NC in place. Head Head: normal to inspection, normocephalic and atraumatic Ears: hearing grossly normal bilaterally Nose: external nose normal and Negative epistaxis Face and Sinus: face symmetric Eyes General: appearance normal, both eyes and all related structures Eyelids: eyelids normal Conjunctivae: conjunctivae normal; Negative scleral icterus EOM: EOM intact bilaterally Neck Neck: no JVD Carotids: normal carotid upstroke; Negative bruit Neck Mass: Negative Neck mass Chest Chest inspection: normal respiratory effort; Negative respiratory distress, audible wheezes or tachypneic Auscultation: Left: Rhonchi and Right: Clear to Auscultation Cardio Rate: regular rate Rhythm: regular rhythm Heart sounds: S1 normal and S2 normal Distant heart tones secondary to body habitus. Exam limited. GI GI: obese Neuro General: patient alert, patient awake, patient oriented x3 and moves all extremities Skin Skin: no rashes or lesions noted Extremities Pulses: Normal: Right Posterior Tibial Pulse, Left Posterior Tibial Pulse, RightRadial Pulse and Left Radial Pulse Lower Extremity Edema: +1: Bilateral Psych Psychological: normal affect Supplemental Info Supplemental Information Echocardiogram 03/24/2024 Interpretation Summary The study was technically difficult. Mild concentric left ventricular hypertrophy. The left ventricular ejection fraction is 65 %. Moderate calcification of the noncoronary cusp of the aortic valve. Mild aortic valve stenosis Echocardiogram 03/19/2023: Interpretation Summary Normal LV size. Left ventricular systolic function is normal. The estimated ejection fraction is 70 %. Stage 1 diastolic dysfunction. Moderate focal aortic valve calcification. Echocardiogram 06/2021: Normal LV size. Left ventricular systolic function is normal. The estimated ejection fraction is 60 %. Stage 1 diastolic dysfunction. Moderate concentric left ventricular hypertrophy. Contrast injection was performed. The study was technically difficult. Labs: HDL Cholesterol, (40-) 60 mg/dL Cholesterol, (<=200) 134 mg/dL Triglycerides, (-199) 91 mg/dL Diagnostics: Electrocardiogram Echocardiogram Chest X-Ray Chest CTA Abdomen/Pelvis CT Venous Doppler Study Pulmonary: Pulmonary Function Test Pulmonary Exercise Test Past Visits: Cardiology Visit 03/28/25 Assessment and Plan Assessment and Plan (1) Lower extremity edema: Status: Acute Plan: Patient reports new onset lower extremity edema. She is managed with amlodipinefor her hypertension. She also has a history of nonischemic cardiomyopathy. Plan: Will obtain echocardiogram. Will obtain NT proBNP today. Decreased amlodipine to 5 mg and asked patient to monitor her blood pressure and notify our office with persistently elevated or low readings. (2) Hyperlipidemia: Status: Chronic Qualifiers: Hyperlipidemia type: pure hypercholesterolemia Qualified Code(s): E78.00 - Pure hypercholesterolemia, unspecified; E78.0 - Pure hypercholesterolemia Plan: Patient has a history of hyperlipidemia. Most recent lipid panel available to review was greater than 6 months ago. LDL goal of 70 or lower given her history of CAD. Plan: Will obtain updated lipid panel. Recommend patient continue simvastatin nightly. Encourage lifestyle and risk factor modification. (3) LBBB (left bundle branch block): Status: Chronic Plan: Patient has a known left bundle branch block. (4) Essential (primary) hypertension: Status: Chronic Plan: Blood pressure in office today 147/90, 140/68 on recheck. Patient reports bloodpressure usually controlled and feels that elevated reading today is abnormal for her. Plan: Recommend patient decrease amlodipine to 5 mg daily secondary to lower extremity edema. Recommend patient monitor blood pressure and home environment 2-3 times a week over the next 2 weeks and notify our office with findings. If this remains elevated in her home environment, adjustments to antihypertensive agents will be recommended. (5) Atherosclerotic heart disease of [place] coronary artery without angina pectoris: Status: Chronic Qualifiers: [place] vs. transplanted heart: [place] heart Qualified Code(s): I25.10 -Atherosclerotic heart disease of [place] coronary artery without angina pectoris Plan: Patient has a history of coronary artery disease. Her heart catheterization in 2011 demonstrated 70-80% eccentric hazy proximal to mid stenosis of the first diagonal and mild to moderate stenosis throughout all other arteries. Plan: Will obtain echocardiogram given reported lower extremity edema. Depending on findings of echocardiogram, will consider additional testing if warranted. Recommend patient continue statin, beta-aquilino and aspirin. (6) Nonischemic cardiomyopathy: Status: Resolved Plan: Patient has a history of nonischemic cardiomyopathy with an noted reduced ejection fraction during cardiac catheterization in 2011. Most recent echocardiogram 03/24/2024 demonstrates an ejection fraction of 65%. Patient doesreport new worsening of her lower extremity edema. Plan: Will obtain echocardiogram. Recommend patient continue lisinopril and carvedilol. (7) Atrial fibrillation: Status: Acute Qualifiers: Atrial fibrillation type: unspecified Qualified Code(s): I48.91 - Unspecified atrial fibrillation Plan: Patient has a history of atrial fibrillation. She appears to be in normal sinusrhythm on exam today. She is anticoagulated with Eliquis For CVA protection. Most recent EKG available to review dates 08/28/2024 and this demonstrates normalsinus rhythm. Plan: Recommend patient continue carvedilol and Eliquis. Orders: Orders CBC W/Diff, Automated 03/28/25 I25.10 - Atherosclerotic heart disease of nativecoronary artery without angina pectoris Comprehensive Metabolic Profil 03/28/25 E78.0 - Pure hypercholesterolemia, E78.00 - Pure hypercholesterolemia, unspecified, I10 - Essential (primary) hypertension, R60.0 - Localized edema Lipid Profile 03/28/25 E78.5 - Hyperlipidemia, unspecified Pro- Brain NATRIURETIC PEPTIDE 03/28/25 R06.02 - Shortness of breath, R60.0 - Localized edema Echo Complete 03/28/25 I42.8 - Other cardiomyopathies, R06.02 - Shortness of breath, R60.0 - Localized edema Medications: Changed From amlodipine 10 mg PO DAILY 30 tabs 1RF blood pressure To amlodipine 5 mg PO DAILY 30 tabs 3RF blood pressure Plan 1. Decrease Amlodipine to 5mg daily. Monitor your blood pressure 2-3 times per week over the next 2 weeks. Call our office if BP is persistently elevated (>135/85) or low. 2. Blood work today. Depending on these result, will consider diuretic plan. 3. The hospital should call you schedule your echocardiogram. If you do not hearfrom them in 1 weeks, contact scheduling. Patient will follow-up in 2 months or sooner, if needed. Thank you for allowing me to participate in the care of your patient. Please don't hesitate to call if any issues arise. This note was generated using a voice recognition system and there may be incorrect words, spelling, or punctuation that were not noted when reviewing theoffice note prior to saving. Portions of this documentation were copied and pasted from previous office visitnotes to provide a cohesive continuity of the history. The note has been reviewed, edited, and updated, as necessary. Patient Instructions: 1. Decrease Amlodipine to 5mg daily. Monitor your blood pressure 2-3 times per week over the next 2 weeks. Call our office if BP is persistently elevated (>135/85) or low. 2. Blood work today. Depending on these result, will consider diuretic plan. 3. The hospital should call you schedule your echocardiogram. If you do not hearfrom them in 1 weeks, contact scheduling. 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 transplanted heart: [place] heart Nonischemic cardiomyopathy I42.8 Atrial fibrillation, unspecified type I48.91 Atrial fibrillation type: unspecified Coding Level of Care Code Off vis,est,level 4 Diagnoses Lower extremity edema R60.0 Pure hypercholesterolemia E78.00; E78.0 Hyperlipidemia type: pure hypercholesterolemia LBBB (left bundle branch block) I44.7 Essential (primary) hypertension I10 Atherosclerosis of [place] coronary artery of [place] heart without angina pectoris I25.10 [place] vs. transplanted heart: [place] heart Nonischemic cardiomyopathy I42.8 Atrial fibrillation, unspecified type I48.91 Atrial fibrillation type: unspecified Clinical Quality Measures Falls Risk Screening/Assistive Devices Have you fallen in the past year?: Yes Cardiac Ejection fraction %: 65 03/29/25 0802 <Electronically signed by Jose ACUÑA> Date _ Jose ACUÑA 03/29/25 1216<Electronically signed by Kamaljit Trevizo MD> Cosigner Signature: Date (if applicable) Kamaljit Trevizo MD CC: Dr. Justin Bolden MD ~ [facility] Work Phone: 1(451) 257-347009-23-2025 Evaluation note* Diagnosis Onset Date Resolution Status Admit Date Atrial fibrillation acute Septe mber 2024 1:52pm Lower extremity edema acute Sep tember 2024 1:52pm 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 Septembe r 2024 1:52pm Essential (primary) hypertension chronic March 28, 2025 1:52pm Hyperlipidemia chronic March 28, 2025 1:52pm LBBB (left bundle branch block) chronic March 28, 2025 1:52pm Nonischemic cardiomyopathy resolved March 28, 2025 1:52pm COPD (chronic obstructive pulmonary disease) chronic March 10:23am Hypoxia chronic March 10:23am Obesity chronic March 10:23am Smoking greater than 30 pack years chronic April 03, 2025 10:23am [facility] Work Phone: 1(125) 983-754804-06-2025 Radiology Diagnostic study note [facility] Imaging Services [address] [place] [address] Lung Screening MR#: [id number] Acct: [id number] Name: SALLY AYALA Rep #: [id number] : 1950 F 74 From: Pet er Peer DO PCP: Dr. Justin Bolden MD Status: REG C SILVERIO Study:Low Dose CT Lung Screening Date of Exam : 10/07/24 Exam# [id number] Ordering Dr: Marvin Reynolds NP TRANSITIONAL CARE NURSE-C PROCEDURE: LOW DOSE CT LUNG SCREENING 10/07/2024 REASON FOR EXAM: SMOKER QUIT 03/2023. Prior to this 40 pack-year history of smoking. COPD. [facility]oxygen. TECHNIQUE: Low Dose CT Lung screening without contrast. Coronal and Sagittal reconstructionseries were provided. One or more dose reduction techniques were used (e.g., Automated exposure control, adjustment of the mA and/or kV according to patient size, use of iterative reconstruction technique). REFERENCE LINK: L4 Mobile Lung-RADS RADIATION DOSE SUMMARY: CTDlvol: 4.02 mGy DLP: 142.95 mGycm COMPARISON: Noncontrast chest CT from March 24, 2024 FINDINGS: PULMONARY NODULES: (Only nodules >3mm are reported) Nodules described below are on series 2 unless otherwise specified. Pulmonary Nodules: No worrisome nodules are identified. Hardware:None. Lymph Nodes:No suspicious adenopathy. Heart and Vasculature:Heart is upper limits normal in size. Coronary Artery Calcifications: Moderately pronounced calcific coronary artery atherosclerosis is present. Lungs and Airways: Pleural thickening and scarring in the right base has improved compared to the prior study from March 2024. Other foci of pleural-based linear stranding appear the same or improved. Pleura:No pleural effusions. Upper Abdomen:No acute process identified in the upper abdomen. Bones:No aggressive bone lesions. CT/Low Dose CT Lung Screening IMPRESSION: No worrisome pulmonary nodules are identified. Coronary artery calcification (CAC) is moderately pronounced. Lung-RADS Category: 1 Other Significant Findings: None. Recommendation: Continue annual low-dose screening so long as the criteria for scanning are met. Reading [facility] CC: SHANTA Reynolds; Dr. Justin Bolden MD ~ Bundle Collector: Signed [facility]02-27-2025 [facility] Medical Records Department [address] [place] [address] Discharge Summary 09/01/24 1154 MR#: [id number] Acct: [id number] Name: SALLY AYALA Rep #: [id number] : 1950 73 From: Blaise العلي DO PCP: Dr. Justin Bolden MD Status:DIS IN [place] [facility] [id number] Providers Date of Admission: 08/28/24 Date of Discharge: 09/01/24 Primary Care Physician: Dr. Justin Bolden MD Consultations 08/29/24 11:09 Consult: Gastroenterology Routine Consulting Provider: [facility] Reason for Consult: Possible achalasia EMERGENT Consult: No MD Notified: Yes Date Notified: 08/29/24 Time Notified: 11:09 Method of Notification: Verbal Reason For Visit: ACUTE ON CHRONIC HYPOXIA, PNA Diagnosis Discharge Diagnosis (1) Acute and chronic respiratory failure with hypoxia: Status: Chronic Code(s): J96.21 - Acute and chronic respiratory failure with hypoxia (2) Pneumonia: Status: Acute Code(s): J18.9 - Pneumonia, unspecified organism Plan 1. Acute on chronic hypoxic respiratory failure secondary to exacerbation of COPD and community- acquired pneumonia-patient will continue on aerosol treatments and IV antibiotics, pulse ox will be monitored, oxygen will be adjusted as necessary #2 community-acquired pneumonia-patient will be switched over to oral antibiotics #3 type 2 diabetes-blood sugars will be monitored, sliding scale insulin will be administered as needed #4 paroxysmal atrial fibrillation-patient is on Eliquis and Coreg #5 morbid obesity-complicates care, management, recovery, and prognosis #6 achalasia-patient underwent Botox injection today during her EGD #7 Ramila esophagitis-patient was placed on nystatin swish and swallow Total clinical time spent by myself addressing the patient's medical issues, reviewing all of her data, and collaborating with patient's care team: 35 minutes Medications at Discharge Home Medications albuterol sulfate 90 mcg/actuation aerosol inhaler 2 puff inhalation Q4H PRN SHORTNESS OF BREATH/WHEEZING 10/02/16 aspirin 81 mg tablet,delayed release 81 mg PO DAILY HEART HEALTH 10/02/16 imipramine HCl 25 mg tablet 25 - 50 mg PO QHS BLADDER CONTROL 10/02/16 simvastatin 40 mg tablet 40 mg PO QHS CHOLESTEROL 10/02/16 Nebulizer machine #1 ea 09/15/23 bupropion HCl 300 mg 24 hr tablet, extended release 300 mg PO DAILY mental health 10/12/23 carvedilol 25 mg tablet 25 mg PO Q12H HEART 10/12/23 amlodipine 10 mg tablet 10 mg PO DAILY blood pressure #30 tabs 10/14/23 cholecalciferol (vitamin D3) 25 mcg (1,000 unit) capsule 25 mcg PO DAILY vitamin 03/08/24 fluticasone fur. 200 mcg-umeclid 62.5 mcg-vilant 25 mcg inhalat.powder (Trelegy Ellipta) 1 inh inhalation DAILY breathing #60 ea 03/08/24 ipratropium 20 mcg-albuterol 100 mcg/actuation mist for inhalation (Combivent Respimat) 1 puff inhalation BID 03/08/24 metformin 1,000 mg tablet 1,000 mg PO BID diabetes 03/08/24 apixaban 5 mg tablet (Eliquis) 5 mg PO BID afib 30 days #60 tabs 03/29/24 furosemide 40 mg tablet 40 mg PO DAILY diuretic #7 tabs 03/29/24 pantoprazole 40 mg tablet,delayed release 40 mg PO BID gerd 30 days #60 tabs 03/29/24 lisinopril 40 mg tablet 40 mg PO BID blood pressure #180 TABLETS 08/03/24 doxycycline monohydrate 100 mg capsule 100 mg PO BID #7 caps 09/01/24 Hospital Course Operations None Procedures EGD Summary of Care Provided Minutes Spent on Discharge: 32 Hospital Course: This 73-year-old white female was seen in the emergency room at [facility] with a chief complaint of increased shortness of breath. Patient also complained of generalized weakness and nausea and vomiting. Patient has home oxygen at home which she uses chronically. Labs obtained in the ER showed an elevated white blood cell count at 30.1, hemoglobin was 11.5, potassium was 3.4, creatinine was 1.11 and BUN was 22. CT of the abdomen with pelvis showed right middle and lower lobe consolidations concerning for pneumonia in the lung. Patient was admitted to [place] [address] for exacerbation of COPD and pneumonia, she was treated with IV antibiotics and due to persistent problems with dysphagia was seen in consultation by gastroenterology and underwent an EGD with injection of botulinum toxin for achalasia. On 09/01/2024, patient was seen and examined: On examination she appeared in good health and spirits, she does not appear to be in any distress. Vital signs as documented. Skin warm and dry and without overt rashes. Neck without JVD, thyroid appears normal, trachea is midline, neck is supple. Lungs clear, normal air movement was noted. Heart exam notable for regular rhythm, normal sounds and absence of murmurs, rubs or gallops. Abdomen unremarkable and without evidence of organomegaly, masses, or abdominal aortic enlargement, bowel sounds are present in all 4 q (more content not included)...[facility]02-24-2025 Evaluation note* Diagnosis Onset Date Resolution Status Admit Date Acute and chronic respirator y failure with hypoxia inactive August 282024 11:07pm Pneumonia inactive August 28, 2024 11:07pm [facility] Work Phone: 1(344) 295-993402-24-2025 Evaluation note* Diagnosis Onset Date Resolution Status Admit Date Acute and chronic respirator y failure with hypoxia inactive August 282024 11:07pm Pneumonia inactive August 28, 2024 11:07pm New onset a-fib acute September 11:20am 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 September 262024 11:20am Essential (primary) hypertension chronic September 26, 2024 11:20am Hyperlipidemia chronic September 11:20am 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 Justin Bolden MD Status:ADM I NO Location: [place] [address] Providers Date of Admission: 10/12/23 Date of Discharge: 10/14/23 Primary Care Physician: Dr. Justin Bolden MD Reason For Visit: NEAR SYNCOPE, ADULT FTT Diagnosis Discharge Diagnosis (1) Abrasion, multiple sites: Status: Acute Code(s): T07.XXXA - Unspecified multiple injuries, initial encounter (2) Multiple falls: Status: Acute Code(s): R29.6 - Repeated falls (3) Generalized weakness: Status: Acute Code(s): R53.1 - Weakness (4) Leukocytosis: Status: Acute Code(s): D72.829 - Elevated white blood cell count, unspecified (5) Hyperglycemia: Status: Acute Code(s): R73.9 - Hyperglycemia, unspecified Medications at Discharge Home Medications albuterol sulfate 90 mcg/actuation aerosol inhaler 2 puff inhalation Q4H PRN SHORTNESS OF BREATH/WHEEZING 10/02/16 aspirin 81 mg tablet,delayed release 81 mg PO DAILY HEART HEALTH 10/02/16 imipramine HCl 25 mg tablet 25 - 50 mg PO QHS BLADDER CONTROL 10/02/16 simvastatin 40 mg tablet 40 mg PO QHS CHOLESTEROL 10/02/16 cholecalciferol (vitamin D3) 50 mcg (2,000 unit) capsule 2,000 unit PO DAILY SUPPLEMENT 11/24/17 ipratropium 0.5 mg-albuterol 3 mg (2.5 mg base)/3 mL nebulization soln 3 ml inhalation Q6H #180 mL 09/03/23 Nebulizer machine #1 ea 09/15/23 bupropion HCl 300 mg 24 hr tablet, extended release 300 mg PO DAILY 10/12/23 carvedilol 25 mg tablet 25 mg PO Q12H HEART 10/12/23 lisinopril 40 mg tablet 40 mg PO DAILY 10/12/23 amlodipine 10 mg tablet 10 mg PO DAILY #30 tabs 10/14/23 cephalexin 500 mg capsule 500 mg PO BID #10 caps 10/14/23 metformin 500 mg tablet 500 mg PO BIDCM #60 tabs 10/14/23 Hospital Course Summary of Care Provided Hospital Course: Mrs. Ayala is a 73-year-old white female presented to the emergency department at [facility] on 10/12/2023 due to lightheadedness/dizziness/falls. She indicated this has been going on for a few weeks now she feels. She complained on presentation of about a 3-day history of progressively worsening fatigue, malaise, and "dizziness/falls with no injury orloss of consciousness. She did indicate she recently started Wellbutrin to assist in decreasing her appetite. [facility] which resulted in her inability to get up soEMS was called and she was transferred to the emergency department. On presentation she denied any overt room spinning and it sounded like she described more of a lightheadedness with gait instability. Her vital signs on presentation were unremarkable other than her oxygen saturation was 85% on room air with improvement to 96% on 3 L nasal cannula. Her CBC did show a leukocytosis with a white count of 18.1 and a stable hemoglobin. She did have aleft shift. Her BMP was overtly unremarkable. EKG showed sinus rhythm with no evidence of acute ischemia. CT of the brain was unremarkable for any acute findings. Her urinalysis was consistent with possible infection and a culture was obtained. Orthostatic vitals were also obtained and found to be positive show she was given IV fluids. Ceftriaxone was started after urine culture was sent. Her urine culture resulted positive for an E. coli UTI with chronic counts greater than 100,000. It was a pansensitive organism and we discharged her home with another 5 days of Keflex to complete her antibiotic regimen for her UTI. As noted, she was also found to be dehydrated. Her orthostatic vitalsresponded well to IV fluids and her symptoms resolved. She denied any further lightheadedness with moving around or with therapy getting up in her room and inthe hallway. She was stable with regards to oxygen on her home 2 L at baseline. She was seen by physical and Occupational Therapy and they felt that she may benefit from some rehab acute rehab declined the patient and do the fact that she was admitted as observation did not qualify for discharge to [facility]. We were able to arrange home health care at the time of discharge [facility] will start home health care on . She was moving much better at the time of discharge with therapy services and as noted above, her lightheadedness had resolved. She was noted to be hyperglycemic and we did obtain a hemoglobin A1c. Her A1c was found to be 7.3 which is consistent with a diagnosis of diabetes mellitus type 2. We started on metformin 500 mg p.o. twice daily and asked her to follow-up with her primary care physician for ongoing management ofher diabetes. She was also given information with regards to diabetes and diet. Her blood pressure also was noted to be elevated during her stay and upon review of previous hospitalizations seems to be chronically elevated. We did increase her amlodipine to 10 mg p.o. twice daily and she was discharged with a prescription for this in addition to the metformin and her antibiotic. I have asked that she follow-up with her primary care physician within 1 week for hospital follow-up and a blood pressure check to see if any additional medication will be required to attain a goal blood pressure of 130/80 or less. She was able to be discharged home with home health care in stable condition on 10/14/2023. Discharge diagnoses: Orthostatic hypotension-resolved Lightheadedness-resolved Generalized weakness Falls E. coli UTI Newly diagnosed DM-2 Uncontrolled hypertension Leukocytosis Chronic hypoxic respiratory failure COPD JONO History of nonischemic cardiomyopathy Nonobstructive CAD Chronic left bundle branch block Hyperlipidemia Urinary incontinence Depression History of tobacco abuse Morbid obesity Physical Exam Const alert, oriented x3, no apparent distress, no limitations and well nourished; Negative for average body habitus or healthy appearing Constitutional Narrative: Morbidly obese, white female, sitting up in bed talking on the phone and watching television, appears comfortable and nontoxic, does appear chronically ill General Appearance: cooperative, comfortable, well kempt and well developed Orientation / Consciousness: awake, oriented to person, oriented to place and oriented to time Exam Limitations: no limitations Nutritional Appearance: morbidly obese HEENT normocephalic, head/scalp atraumatic, hearing grossly normal bilaterally and moist oral mucous membranes HEENT Narrative: Mallampati 3, no thrush Eyes PERRL, EOMs intact bilaterally and conjunctivae normal Eyes Narrative: No scleral icterus Neck no lymphadenopathy and supple Neck Narrative: Trachea midline, no thyroid enlargement Resp normal respiratory effort, no retractions, no use of accessory muscles and clearto auscultation bilaterally Resp Narrative: Diffusely diminished but clear Auscultation: Negative for rales, rhonchi or wheezes Cardio regular rate, regular rhythm, S1 normal heart sound, S2 normal heart sound, no rub, no gallops and no clicks; Negative for no murmurs Cardio Narrative: 3 out of 6 systolic murmur loudest at right upper sternal border GI normal to inspection, nondistended, normoactive bowel sounds, soft to palpation and non-tender GI Narrative: Large protuberant abdomen Extremity no clubbing, cyanosis or edema Extremity Narrative: Pedal pulses are 2+, radial pulses are 2+ Skin no rashes or lesions noted, skin turgor normal and no jaundice Skin Narrative: Abrasion on forehead centrally, right elbow, and right knee-healing well with nosigns of infection, no drainage Neuro oriented x3, CN's II-XII intact bilaterally, moves all extremities and no focal motor deficits Neuro Narrative: Generalized weakness noted-proximal greater than distal Speech: speech normal Psych affect normal Psych Narrative: Very pleasant, interacts appropriately, seems slightly fatigued Weight / BMI Weight Weight: 136.7 kg Body Mass Index (BMI) 51.7 ABG / Lab / Microbiology Data 10/14/23 06:45 10/14/23 06:45 Laboratory: Laboratory Results - last 24 hr 10/13/23 05:34: Hemoglobin A1c 7.3 H 10/13/23 17:12: POC Glucose 280 H 10/14/23 06:45: WBC 19.4 H, RBC 3.75 L, Hgb 12.4, Hct 38.8, MCV 103.5 H, MCH 33.1 H, MCHC 32.0, RDW Std Deviation 47.3 H, RDW Coeff of [place] 12.5, Plt Count 192, MPV 12.0, Immature Gran % (Auto) 0.600, Neut % (Auto) 78.8 H, Lymph % (Auto) 13.1 L, [place] % (Auto) 6.9, Eos % (Auto) 0.2, Baso % (Auto) 0.4, Absolute Neuts (auto) 15.3 H, Absolute Lymphs (auto) 2.53, Nucleated RBC % 0, Sodium 142,Potassium 3.5, Chloride 106, Carbon Dioxide 33.0 H, Anion Gap 3 L, BUN 19 H, Creatinine 0.92, Estim Creat Clear Calc 75.23, Est GFR (MDRD) Af Amer 77, Est GFR (MDRD) Non-Af 64, BUN/Creatinine Ratio 20.7 H, Glucose 177 H, Calcium 8.8 Microbiology: Microbiology 10/12/23 05:34 Urine, Clean Catch Urine Culture - Final Presumptive E. coli D/C Instructions Discharge Diet: Low fat / Low cholesterol and 1800 Calorie Control Diet Discharge Activity: Return to Normal Activity Meaningful Use Info Meaningful Use Diagnoses (Choose all that apply): None applicable Discharge Plan Admission Admit Date/Time: 10/12/23 05:26 Primary Reason for Your Visit: Lightheadedness/dizziness/falls Attending Provider: Penny Redd Primary Care Provider: Justin Bolden Consulting Providers: Chantelle Chavarria Instructions Patient Instructions: Diabetes Food Shop Meals Prep, Diabetes Food Tips Ch, Diabetes: Meal Planning, Diabetes Inspect Feet Discharge Orders/Prescriptions Prescriptions: New amlodipine 10 mg Tablet 10 mg PO DAILY Qty: 30 1RF metformin 500 mg Tablet 500 mg PO BIDCM Qty: 60 1RF cephalexin 500 mg capsule 500 mg PO BID Qty: 10 0RF Continued cholecalciferol (vitamin D3) 2,000 unit capsule 2,000 unit PO DAILY ipratropium-albuterol 0.5 mg-3 mg(2.5 mg base)/3 mL solution for nebulization 3 ml inhalation Q6H Qty: 180 11RF aspirin 81 MG tablet 81 mg PO DAILY simvastatin 40 MG tablet 40 mg PO QHS albuterol sulfate 1 PUFF inhaler 2 puff INHALATION Q4H PRN (Reason: SHORTNESS OF BREATH/WHEEZING ) imipramine HCl 25 MG tablet 25 - 50 mg PO QHS carvedilol 25 mg tablet 25 mg PO Q12H lisinopril 40 mg tablet 40 mg PO DAILY bupropion HCl 300 mg tablet extended release 24 hr 300 mg PO DAILY (DME) Nebulizer machine See Rx Instructions .ROUTE .MEDSUPPLY Qty: 1 0RF Rx Instructions: As directed Referrals / Follow Up: Justin Bolden MD [Primary Care Provider] - Within 1 Week Disposition Disposition (needs filled in before D/C Order can be placed): Home Health Service Charges/Coding Visit Charges Inpatient E&M: 98577 Disch Hosp >30min 10/14/23 1324 <Electronically signed by Penny Redd DO> Cosigner Signature (if applicable): CC: Dr. Penny Redd DO; Dr. Justin Bolden MD~ Signed [facility] Work Phone: 1(596) 669-803104-09-2024 Progress note Author Penny Redd [facility] October 13, 2023 5:21pm Note Date/Time October 13, 2023 5:09 pm [facility] Medical Records Department [address] [facility] [place] [address] Progress Note - Hospitalist 10/13/23 1657 MR#: [id number] Acct: [id number] Name: SALLY AYAAL Rep #:[id number] : 1950 73 From: Penny Redd DO PCP: Dr. Justin Bolden MD Status:ADM I NO Location: [place] [id number] Reason for Visit Reason for Visit: Falls/lightheadedness Subjective Subjective Patient states she is feeling much better and she has had no further dizziness/lightheadedness. Her symptoms seem to resolve with IV fluids and I highly suspect she is volume depleted on presentation. She does state that she feels alittle bit shaky today. Therapy thought she would do well with rehab however she was declined by inpatient rehab and correction facility as she did too well for that type of care so home health has been set up and that will start onT. Objective Data Objective Data Vital Signs: Vital Signs Temp Pulse Resp BP Pulse Ox O2 Del Method O2 Flow Rate 98.5 F 77 20 H 150/75 H 94 Nasal Cannula 3 10/13/23 10:00 10/13/23 13:04 10/13/23 13:04 10/13/23 10:00 10/13/23 10:10/13/23 10:10/13/23 12:01 Oxygen Flow Rate (L/min) 3 Oxygen Delivery Method Nasal Cannula Weight: 134.3 kg Body Mass Index (BMI) 50.8 Intake & Output: Intake and Output for Last 24 Hours 10/11/23 10/12/23 10/13/23 23:59 23:59 23:59 Intake Total 1900 / 1900 1350 / 1350 Balance 1900 / 1900 1350 / 1350 Lab / Micro Data 10/13/23 05:34 10/13/23 05:34 Labs: Laboratory Results - last 24 hr 10/12/23 18:00: D-Dimer Quant (PE/DVT) 0.86 H* 10/13/23 05:34: WBC 15.9 H, RBC 3.72 L, Hgb 12.1, Hct 37.8, MCV 101.6 H, MCH 32.5 H, MCHC 32.0, RDW Std Deviation 45.7 H, RDW Coeff of [place] 12.2, Plt Count 162, MPV 11.8, Immature Gran % (Auto) 0.800, Neut % (Auto) 90.3 H, Lymph % (Auto) 6.6 L, [place] % (Auto) 2.0, Eos % (Auto) 0.0, Baso % (Auto) 0.3, Absolute Neuts (auto) 14.4 H, Absolute Lymphs (auto) 1.04, Nucleated RBC % 0, Sodium 140,Potassium 4.0, Chloride 107, Carbon Dioxide 25.0, Anion Gap 8, BUN 12, Creatinine 0.87, Estim Creat Clear Calc 78.68, Est GFR (MDRD) Af Amer 82, Est GFR (MDRD) Non-Af 68, BUN/Creatinine Ratio 13.8, Glucose 278 H, Calcium 8.8, Total Bilirubin 0.50, AST 53 H, ALT 39, Alkaline Phosphatase 80, Total Protein 6.5, Albumin 2.9 L, Globulin 3.6, Albumin/Globulin Ratio 0.8 L Micro: Microbiology 10/12/23 05:34 Urine, Clean Catch Urine Culture - Preliminary Presumptive E. coli Radiography Diagnostic Testing: Radiology Impression Chest X-Ray 10/13/23 05:55 IMPRESSION: Right basilar atelectasis versus infiltrate Electronically Signed: Blaise Farley MD at 7:16 EDT , Chest CTA 10/13/23 09:30 IMPRESSION: No evidence of pulmonary embolism. No focal consolidation is seen. Electronically Signed: Cisco Calderon MD at 10:46 EDT , Rhythm Strip Rhythm Strip: Sinus Rhythm Rate: 75 Ectopy: None Physical Exam Const alert, oriented x3, no apparent distress and well nourished; Negative for average body habitus or healthy appearing Constitutional Narrative: Morbidly obese, white female, sitting up in a chair at the bedside, physical therapy at in the room working with the patient, appears comfortable, nontoxic HEENT head/scalp atraumatic and moist oral mucous membranes HEENT Narrative: Mallampati 3, no thrush Head and Scalp: normocephalic Resp normal respiratory effort, no retractions and no use of accessory muscles Resp Narrative: Diffusely diminished but no adventitious sounds, patient is on her baseline oxygen of 2 L, dyspneic with exertion Auscultation: Negative for rales, rhonchi or wheezes Cardio regular rate, regular rhythm, S1 normal heart sound, S2 normal heart sound, no rub, no gallops and no clicks; Negative for no murmurs Cardio Narrative: 3 out of 6 systolic murmur loudest at right upper sternal border GI normal to inspection, nondistended, normoactive bowel sounds, soft to palpation and non-tender GI Narrative: Large protuberant abdomen Extremity no clubbing, cyanosis or edema Extremity Narrative: Pedal pulses are 2+, radial pulses are 2+ Neuro oriented x3, moves all extremities and no focal motor deficits Neuro Narrative: Generalized weakness noted-proximal greater than distal Speech: speech normal Psych affect normal Psych Narrative: Very pleasant, interacts appropriately, seems slightly fatigued Assessment & Plan Assessment/Plan (1) Abrasion, multiple sites: (2) Multiple falls: (3) Generalized weakness: (4) Leukocytosis: (5) Hyperglycemia: PLAN: Plan Lightheadedness -Orthostatics were positive -This has resolved with IV fluids -Patient is found to be hyperglycemic and hemoglobin A1c is pending I do question whether or not she is been having an osmotic diuresis causing some dehydration -Continue to monitor -Cardiac enzymes were negative Generalized weakness/falls -PT/OT are following the patient -Therapy services did suggest she may benefit from ongoing therapy after discharge in the inpatient setting either at rehab or SNF however she has been declined by both services and plan is for home health care at the time of discharge -This will start on -CT of the brain was unremarkable for any acute findings Leukocytosis -Etiology unclear -May be reactive -No infectious symptoms -CTA of the chest was done and no significant findings there -Repeat CBC in a.m. Hyperglycemia -Blood sugars been markedly elevated and she is not on any steroids -Appears they have been trending up when I look at her previous trends -Check hemoglobin A1c as I suspect the patient may be a newly diagnosed diabetic Elevated D-dimer -CTA of the chest was performed and negative for PE Chronic hypoxic respiratory failure secondary to COPD -FEV1 is 32% predicted -Patient did have a recent echocardiogram done in March 2023 that showed an EF of 70%, stage I diastolic dysfunction and moderate focal aortic valve calcification--> pulmonary pressures were not reported -Continue home inhalers JONO -Continue home CPAP History of nonischemic cardiomyopathy -Patient is currently well compensated and last echo showed an EF of 70% -Continue current medical therapy Nonobstructive CAD/chronic LBBB -Patient follows as an outpatient with cardiology with her last appointment being in August -Overall stable -Last cardiac catheterization was in 2011 with no intervention -Cardiac enzymes were cycled and unremarkable x 3 -Continue home aspirin -Continue home carvedilol -Continue home lisinopril Hyperlipidemia -Continue home statin Urinary incontinence -Continue home medication Depression -Continue home Wellbutrin Tobacco abuse -Remote--> quit in March 2023 -Recommend ongoing cessation Morbid obesity -BMI is 50.8 -Complicates treatment, prognosis, outcomes -Recommend weight loss DVT prophylaxis -Continue enoxaparin 40 mg SQ twice daily CODE STATUS -Full code as verified on admission Charges/Coding Visit Charges Inpatient E&M: 74708 Subs Hosp L2 10/13/23 2959 <Electronically signed by Penny Redd DO> Cosigner Signature (if applicable): CC: ~ Signed ADDENDUM by Dr. Penny Redd DO on 10/13/23 at 1721 Addendum E. coli UTI -[place] counts are greater than 100,000 -I started ceftriaxone yesterday however she still has a leukocytosis and her differential slightly higher -Will transition from ceftriaxone to Levaquin to cover Pseudomonas and get a little broader coverage -Patient is penicillin allergic and that is why we needed to use a fluoroquinolone 10/13/231720<Electronically signed by Penny Redd DO> Cosigner Signature (if applicable): cc: ~* Signed [facility] Work Phone: 1(207) 515-868604-08-2024 Progress note Author Penny Redd [facility] October 12, 2023 5:26pm Note Date/Time October 12, 2023 5:26 pm [facility] Medical Records Department [address] [place] [address] Progress Note - Hospitalist 10/12/231720 MR#: [id number] Acct: [id number] Name: SALLY AYALA Rep #:[id number] : 1950 73 From: Penny Redd DO PCP: Dr. Justin Bolden MD Status:ADM I NO Location: [place] [address] Hospitalist Note Patient is a 73-year-old white female presented to the emergency department at [facility] on 10/12/2023 due to lightheadedness/dizziness/falls. She indicated this has been going on for a few weeks now she feels. She complained on presentation of about a 3-day history of progressively worsening fatigue, malaise, and "dizziness/falls with no injury or loss of consciousness. She did indicate she recently started Wellbutrin to assist in decreasing her appetite. The evening prior to her presentation in the emergency department shehad a fall which resulted in her inability to get up so EMS was called and she was transferred to the emergency department. On presentation she denied any overt room spinning and it sounded like she described more of a lightheadedness with gait instability. Her vital signs on presentation were unremarkable other than her oxygen saturation was 85% on room air with improvement to 96% on 3 L nasal cannula. Her CBC did show a leukocytosis with a white count of 18.1 and astable hemoglobin. She did have a left shift. Her BMP was overtly unremarkable. EKG showed sinus rhythm with no evidence of acute ischemia. CT of the brain was unremarkable for any acute findings. Her urinalysis was consistent with possible infection and a culture was obtained. Orthostatic vitals were also obtained and found to be positive show she was given IV fluids. Urine culture is currently pending and we did start her on ceftriaxone. I willgive her 1 more liter of IV fluids and repeat orthostatic vitals. If her lightheadedness/dizziness persists will proceed with MRI tomorrow to rule out any vascular event in the cerebellum as the etiology for her symptoms. Plan is to reevaluate tomorrow and make further decisions from there. 10/12/23 1726 <Electronically signed by Penny Redd DO> Cosigner Signature (if applicable): CC: ~ Signed [facility] Work Phone: 1(732) 863-665104-08-2024 Discharge summary Author Aquilino Sheikh [facility] October 12, 2023 6:45am Note Date/Time October 12, 2023 3:19 am [facility] Medical Records Department [address] [place] [address] Emergency Department Summary 10/12/23 MR#: [id number] Acct: [id number] Name: SALLY AYALA Rep #:[id number] : 1950 73 From: Aquilino Sheikh MD PCP: Dr. Justin Bolden MD Status:ADM I NO Location: [place] [address] HPI HPI - Fall History of Present Illness Chief Complaint: Fall Informant: patient and EMS Narrative Narrative: Patient presents around 3 hours after her last fall. She states she has had several falls in the last 3 days due to feeling dizzy whenever she gets up. This has been going on intermittently for several weeks but seems to be worse inthe last few days. She states it feels like a sensation of movement not necessarily presyncope, although she admittedly does not drink a lot of water she states that is no different than usual. She has had no fevers or recent illness. She has COPD and is on home oxygen, she no longer smokes although she used to. She denies having headaches, tinnitus, earache. She has some scrapes on her right arm and her right knee, she states that is not from the falls but from trying to get up and crawling on the carpet to get to a phone. She was notable to get up tonight hence EMS bringing her here, she states her legs are extremely weak. She denies any injury from the falls, saying that she loses herbalance and falls backward, and her back is not really bothering her right now. She denies hitting her head that she knows of. Her legs have been swollen for about the past 6 or 8 months, she states they are probably a little worse recently. She also states that in the past couple weeks she started bupropion is the only medication change/new medicine, to help curb her appetite. [facility] Medical History (Updated 10/12/23 @ 06:28 by Kym Talavera) Atherosclerotic heart disease of [place] coronary artery without angina pectoris Bronchitis Chronic hypoxic respiratory failure, on home oxygen therapy CKD (chronic kidney disease), stage III COPD (chronic obstructive pulmonary disease) Essential (primary) hypertension Hyperlipidemia LBBB (left bundle branch block) Morbid obesity Nicotine abuse Nonischemic cardiomyopathy Sleep apnea Home Medications albuterol sulfate 90 mcg/actuation aerosol inhaler 2 puff inhalation Q4H PRN SHORTNESS OF BREATH/WHEEZING 10/02/16 [History Last Taken Unknown] aspirin 81 mg tablet,delayed release 81 mg PO DAILY HEART HEALTH 10/02/16 [History Last Taken 03/18/23] imipramine HCl 25 mg tablet 25 - 50 mg PO QHS BLADDER CONTROL 10/02/16 [History Last Taken 03/18/23] simvastatin 40 mg tablet 40 mg PO QHS CHOLESTEROL 10/02/16 [History Last Taken 03/18/23] cholecalciferol (vitamin D3) 50 mcg (2,000 unit) capsule 2,000 unit PO DAILY SUPPLEMENT 11/24/17 [History Last Taken 03/18/23] ipratropium 0.5 mg-albuterol 3 mg (2.5 mg base)/3 mL nebulization soln 3 ml inhalation Q6H #180 mL 09/03/23 [Rx Last Taken Unknown] Nebulizer machine #1 ea 09/15/23 [Rx Last Taken Unknown] bupropion HCl 300 mg 24 hr tablet, extended release 300 mg PO DAILY 10/12/23 [History Last Taken Unknown] carvedilol 25 mg tablet 25 mg PO Q12H HEART 10/12/23 [History Last Taken Unknown] lisinopril 40 mg tablet 40 mg PO DAILY 10/12/23 [History Last Taken Unknown] Allergy/AdvReac Type Severity Reaction Status Date / Time Iodinated Contrast Media Allergy Other Verified 10/12/23 06:24 [CONTRASTS] meperidine [From Demerol] Allergy Unknown Verified 10/12/23 06:24 Penicillins [PCN] Allergy Rash Verified 10/12/23 06:24 Family History Mother Hypertension Diabetes Father Cancer Surgical History History of appendectomy History of cataract surgery History of cholecystectomy History of colonoscopy with polypectomy History of left heart catheterization (09/03/11) History of total hip arthroplasty Social History household members: none Smoking Status: Former smoker quit date: 04/04/23 alcohol intake: current substance use type: does not use ROS ROS ED Constitutional Constitutional ED: Reports weakness; Denies chills or fever(s) Eyes Eyes: Denies change in vision or diplopia ENT ENT ED: Denies ear pain, epistaxis, facial pain, rhinorrhea or tinnitus Cardiovascular Cardiovascular: Reports leg edema; Denies chest pain, palpitations or syncope Respiratory/Chest Respiratory/Chest: Reports cough and other Details: Chronic cough no worse than usual ; Denies dyspnea Gastrointestinal Gastrointestinal: Denies abdominal pain, diarrhea, melena, nausea or vomiting Genitourinary Genitourinary ED: Denies dysuria or hematuria Musculoskeletal Musculoskeletal: Denies back pain, extremity pain or neck pain Integumentary Reports Abrasions; Denies abscess, laceration or rash Neurologic Neurologic: Reports as per HPI, disequilibrium, dizziness and frequent falls; Denies abnormal speech, confusion, focal weakness, headache(s), paresthesias or weakness Psychiatric Psychiatric: Denies suicidal ideation or suicidal thoughts EXAM Physical Exam Const Vital Signs: 10/12/23 02:59 10/12/23 03:06 10/12/23 03:36 Temperature 98.5 F Temperature Source Temporal Pulse Rate 74 Pulse Rate [Lying] Pulse Rate [Sitting (for 1 minute prior to obtaining)] Pulse Rate [Standing (for 1 minute prior to obtaining)] Respiratory Rate 20 H Respiratory Effort Respiratory Depth Respiratory Pattern Blood Pressure 142/54 H Blood Pressure [Lying] Blood Pressure [Sitting (for 1 minute prior to obtaining)] Blood Pressure [Standing (for 1 minute prior to obtaining)] Blood Pressure Mean 83 Blood Pressure Mean [Lying] Blood Pressure Mean [Sitting (for 1 minute prior to obtaining)] Blood Pressure Mean [Standing (for 1 minute prior to obtaining)] Pulse Ox 85 93 96 Oxygen Delivery Method Room Air Nasal Cannula Nasal Cannula Oxygen Flow Rate (L/min) 3 3 10/12/23 04:00 10/12/23 05:01 10/12/23 05:00 Temperature Temperature Source Pulse Rate 83 Pulse Rate [Lying] 77 Pulse Rate [Sitting (for 1 minute prior to obtaining)] 82 Pulse Rate [Standing (for 1 minute prior to obtaining)] 74 Respiratory Rate 21 H Respiratory Effort Normal Non-Labored Respiratory Depth Normal Respiratory Pattern Normal Blood Pressure 133/90 H Blood Pressure [Lying] 142/65 H Blood Pressure [Sitting (for 1 minute prior to obtaining)] 160/71 H Blood Pressure [Standing (for 1 minute prior to obtaining)] 141/64 H Blood Pressure Mean 104 Blood Pressure Mean [Lying] 90 Blood Pressure Mean [Sitting (for 1 minute prior to obtaining)] 100 Blood Pressure Mean [Standing (for 1 minute prior to obtaining)] 89 Pulse Ox 94 Oxygen Delivery Method Room Air Nasal Cannula Oxygen Flow Rate (L/min) Positive well nourished, well developed and obese General Appearance ED: well developed and NAD Nutritional Appearance: obese HEENT Reports TM's clear and nasal mucous membranes and turbinates normal HEENT Narrative: Small contusion left mid forehead, nontender, appears old no crepitance or depression or other signs of acute trauma. No Castaneda sign. No periorbital ecchymosis. No CSF otorhinorrhea. No hemotympanum. atraumatic Face and Sinus: Negative for facial tenderness Tympanic Membrane ED: Yes TM's clear Eyes PERRL and EOMs intact bilaterally Visual Acuity: other Other Details: no entrapment or pain with extraocular movements Neck full ROM and supple General: Negative for tenderness Chest Wall inspection of chest normal and palpation of chest normal Chest: symmetrical chest wall rise; Negative for crepitus or tenderness Resp normal respiratory effort and no retractions Resp Narrative: Diffuse end expiratory wheezing and diffusely diminished but symmetrically, trachea midline no respiratory distress Cardio no murmurs Rate: regular rate Rhythm: regular rhythm GI normal to inspection, nondistended, normoactive bowel sounds, soft to palpation and non-tender Back/Spine normal ROM Cervical Spine: Negative for cervical spine tenderness Thoracic Spine / Upper Back: Negative for thoracic spinal tenderness Lumbar Spine / Lower Back: Negative for lumbar spinal tenderness Extremity normal to inspection and full ROM Extremity Narrative: Abrasion right anterior knee without bony tenderness or limited range of motion,abrasions ulnar aspect of the right proximal forearm and the elbow without bony tenderness or limited range of motion. General Extremety ED: Negative for tenderness Neuro oriented x3, CN's II-XII intact bilaterally, moves all extremities, no focal motor deficits and no sensory deficits noted Debbie Coma Scale: document GCS findings Spontaneous Obeys Commands Oriented 15 Sensorium / Orientation: awake and alert Motor Exam: general weakness Psych mental status grossly normal and thought process normal Skin no wounds Lesions: no lesions Rashes: no rashes MDM MDM MDM Narrative Medical decision making narrative: Orthostatics performed and are negative. My concern is that the patient is having some form of vertigo, that seems more consistent with peripheral vertigo since it is intermittent and triggered with position changes, but she is having disequilibrium that seems to be making her fall. She does not clinically seem to have a significant injury from any of these falls. We cleansed her abrasionsand dressing with bacitracin. She has a leukocytosis on her screening labs, theetiology of this is unknown. She has no urinary symptoms, but has not provided urine yet because she does not have to go yet. Her blood counts are otherwise unremarkable. Labs do not indicate dehydration, she has mild hyperglycemia, chest x-ray 1 view on my interpretation negative for pneumonia, and she does nothave symptoms of worsening respiratory status or URI/LRI symptoms lately, feels at her baseline there. I obtained a CT of the head given her recent falls and the vertigo, I reviewed the images and the report which I agree with, negative for nothing acute. She does not feel dizzy right now, but she feels like her legs are so weak that she cannot safely go home. Will discuss with hospitalist for inpatient observation and further evaluation. Lab Data Attestation: I reviewed the patient's lab results. Labs: Laboratory Results - last 24 hr 10/12/23 10/12/23 10/12/23 03:20 03:20 03:50 WBC Cancelled 18.1 H Corrected WBC Cancelled RBC Cancelled 3.73 L Hgb Cancelled 12.6 Hct Cancelled 37.9 MCV Cancelled 101.6 H MCH Cancelled 33.8 H MCHC Cancelled 33.2 RDW Std Deviation Cancelled 46.0 H RDW Coeff of [place] Cancelled 12.3 Plt Count Cancelled 159 MPV Cancelled 11.4 Immature Gran % (Auto) Cancelled 0.400 Neut % (Auto) Cancelled 83.0 H Lymph % (Auto) Cancelled 7.9 L [place] % (Auto) Cancelled 7.9 Eos % (Auto) Cancelled 0.4 Baso % (Auto) Cancelled 0.4 Absolute Neuts (auto) Cancelled 15.0 H Absolute Lymphs (auto) Cancelled 1.44 Total Counted Cancelled Neutrophils % (Manual) Cancelled Band Neutrophils % Cancelled Lymphocytes % (Manual) Cancelled Monocytes % (Manual) Cancelled Eosinophils % (Manual) Cancelled Basophils % (Manual) Cancelled Metamyelocytes % Cancelled Myelocytes % Cancelled Promyelocytes % Cancelled Blast Cells % Cancelled Plasma Cell % (Manual) Cancelled Other Cells % Cancelled Nucleated RBC % Cancelled 0 Nucleated RBCs/100 WBC Cancelled Differential Comment Cancelled Diff Path Review Cancelled Hypersegmented Neuts Cancelled Atypical Lymphocytes Cancelled Reactive Lymphocytes Cancelled Smudge Cells Cancelled Toxic Granulation Cancelled Toxic Vacuolation Cancelled Dohle Bodies Cancelled [place] Rods Cancelled Platelet Estimate Cancelled Plt Morphology Comment Cancelled RBC Morphology Cancelled Cancelled Polychromasia Cancelled Hypochromasia Cancelled Basophilic Stippling Cancelled Anisocytosis Cancelled Microcytosis Cancelled Macrocytosis Cancelled Spherocytes Cancelled Sickle Cells Cancelled Target Cells Cancelled Tear Drop Cells Cancelled Ovalocytes Cancelled Stomatocytes Cancelled [place] Bodies Cancelled [place] Cells Cancelled Bite Cells Cancelled Crenated Cell Cancelled Acanthocytes (Spur) Cancelled Rouleaux Cancelled Schistocytes Cancelled Sodium 138 Potassium 3.9 Chloride 104 Carbon Dioxide 29.0 Anion Gap 5 BUN 16 Creatinine 1.14 H Estim Creat Clear Calc 54.33 Est GFR (MDRD) Af Amer 60 Est GFR (MDRD) Non-Af 50 L BUN/Creatinine Ratio 14.0 Glucose 247 H Calcium 8.4 L Magnesium 1.6 Troponin I High Sens 10 Radiography Diagnostic Testing: Clinical Impression(s) from Imaging Studies Brain CT 10/12/23 03:10 IMPRESSION: No acute intracranial finding. Electronically Signed: Mark Mcdowell MD at 3:47 EDT , Chest X-Ray 10/12/23 03:30 IMPRESSION: No acute pulmonary finding. Electronically Signed: Mark Mcdowell MD at 3:45 EDT , Rhythm Strip Rhythm Strip: Sinus Rhythm Rate: 75 Ectopy: None Management Discussion w/another healthcare provider: Hospitalist Discharge Plan Dx/Rx/DC Orders Clinical Impression: Generalized weakness, Multiple falls, Disequilibrium, Abrasion, multiple sites Disposition Disposition: Acute Care Hospital [facility] Discharge Date/Time: 10/12/23 06:01 What to do if you have Problems For any increased pain, shortness of breath, bleeding, nausea or vomiting, chestpain, or any unexpected problems, contact your Primary Care Provider. Call [facility] ([phone]) or report to the closest Emergency Room. Call 911 if necessary. 10/12/23 0645 <Electronically signed by Aquilino Sheikh MD> Cosigner Signature (if applicable): CC: Dr. Justin Bolden MD ~ Signed [facility] Work Phone: 1(617) 807-337404-08-2024 History and physical note Author Chantelle Chavarria [facility] October 12, 2023 5:49am Note Date/Time October 12, 2023 5:33 am [facility] Medical Records Department [address] [place] [address] H&P Exam - Hospitalist 10/12/23 0522 MR#: [id number] Acct: [id number] Name: SALLY AYALA Rep #:[id number] : 1950 73 From: Chantelle Chavarrai MD PCP: Dr. Justin Bolden MD Status:ADM I NO Location: [place] [address] HPI - General General Date of Admission: 10/12/23 Date of Service: 10/12/23 Chief Complaint: LH, Dizziness, Falls. HPI Narrative The patient is a 73 y/o F w/ PMHx: JONO using oxygen qHS only, CKD possible stageIII unclear subtype, Morbid Obesity, HTN, HLD, Chronic COPD w/ Chronic Hypoxic Respiratory Failure (2-3L NC), Former tobacco use, Nonobstructive CAD/Nonischemic cardiomyopathy who presents to the [facility] ED on 10/12/23 with historyof 3 days of progressively worsening fatigue, malaise, dizziness and frequent falls with no recent fevers or chills reporting that she has been losing her balance and occasionally falling backwards with no head trauma or loss of consciousness with mildly increased lower extremity swelling above her baseline and reports that she recently started new medications including bupropion to assist in decreasing her appetite but unfortunately upon evening prior to ED presentation following a fall she could not get up prompting EMS call and transition to the ED given severe debility. Patient has difficulty describing the symptoms prior to falls but denies any specific overt room spinning sensation. From discussion it does seem may be to be more consistent with lightheadedness and dizziness and gait instability. Workup in the ED included T98.5, heart 74, BP 142/54, respiratory rate 20, 85% on room air with improvement to 96 on 3 L nasal cannula, CBC with WBC 18.1, hemoglobin 12.6, MCV 101.6, platelet 159 with left shift, BMP with BUN/creatinine 16/1.14, GFR 50, glucose 247, EKG was sinus rhythm with no acute evidence of ischemia, CT of the brain with no acute intracranial finding, chest x-ray with no acute cardiopulmonary finding, urinalysis requested and pending upon requested evaluation of patient. [facility] Medical History Atherosclerotic heart disease of [place] coronary artery without angina pectoris Bronchitis Chronic hypoxic respiratory failure, on home oxygen therapy CKD (chronic kidney disease), stage III COPD (chronic obstructive pulmonary disease) Diabetes Essential (primary) hypertension Hyperlipidemia LBBB (left bundle branch block) Morbid obesity Nicotine abuse Nonischemic cardiomyopathy Sleep apnea Home Medications albuterol sulfate 90 mcg/actuation aerosol inhaler 2 puff inhalation Q4H PRN SHORTNESS OF BREATH/WHEEZING 10/02/16 [History Last Taken Unknown] aspirin 81 mg tablet,delayed release 81 mg PO DAILY HEART HEALTH 10/02/16 [History Last Taken 03/18/23] imipramine HCl 25 mg tablet 25 - 50 mg PO QHS BLADDER CONTROL 10/02/16 [History Last Taken 03/18/23] simvastatin 40 mg tablet 40 mg PO QHS CHOLESTEROL 10/02/16 [History Last Taken 03/18/23] cholecalciferol (vitamin D3) 50 mcg (2,000 unit) capsule 2,000 unit PO DAILY SUPPLEMENT 11/24/17 [History Last Taken 03/18/23] carvedilol 25 mg tablet 25 mg PO BID HEART #180 tabs 09/03/20 [Rx Last Taken 03/18/23] lisinopril 40 mg tablet 40 mg PO BID #180 tabs 08/31/23 [Rx Last Taken Unknown] ipratropium 0.5 mg-albuterol 3 mg (2.5 mg base)/3 mL nebulization soln 3 ml inhalation Q6H #180 mL 09/03/23 [Rx Last Taken Unknown] Nebulizer machine #1 ea 09/15/23 [Rx Last Taken Unknown] Allergy/AdvReac Type Severity Reaction Status Date / Time Iodinated Contrast Media Allergy Other Verified 09/03/23 10:09 [CONTRASTS] meperidine [From Demerol] Allergy Unknown Verified 09/03/23 10:09 Penicillins [PCN] Allergy Rash Verified 09/03/23 10:09 Family History Mother Hypertension Diabetes Father Cancer Surgical History History of appendectomy History of cataract surgery History of cholecystectomy History of colonoscopy with polypectomy History of left heart catheterization (09/03/11) History of total hip arthroplasty Social History household members: none Smoking Status: Former smoker quit date: 04/04/23 alcohol intake: current substance use type: does not use ROS ROS Narrative Admission Review of Systems: CONSTITUTIONAL: No weight loss, fever, chills, + weakness or fatigue. HEENT: + Lightheadedness, dizziness. Eyes: No visual loss, blurred vision, double vision or yellow sclerae. Ears, Nose, Throat: No hearing loss, sneezing, congestion, runny nose or sore throat. SKIN: No rash or itching, lesions, wounds. CARDIOVASCULAR: + Lightheadedness, dizziness, near syncopal type sensation, chronic edema. No chest pain, chest pressure or chest discomfort, palpitations, orthopnea. RESPIRATORY: + Chronic dyspnea primarily with exertion. No marked cough, increased sputum, wheezing or hemoptysis. GASTROINTESTINAL: No anorexia, nausea, vomiting or diarrhea, abdominal pain, melena, BRBPR. GENITOURINARY: No dysuria, frequency, urgency or retention. NEUROLOGICAL: + Lightheadedness, dizziness, falls, near-syncope type sensation. No headache, paralysis, ataxia, numbness or tingling in the extremities, focal weakness, change in bowel or bladder control, seizure. MUSCULOSKELETAL: + muscle, back pain, joint pain or stiffness. HEMATOLOGIC: No anemia, bleeding or bruising. LYMPHATICS: No enlarged nodes. No history of splenectomy. PSYCHIATRIC: No history of depression or anxiety. ENDOCRINOLOGIC: No reports of sweating, cold or heat intolerance. No polyuria or polydipsia. ALLERGIES: No history of asthma, hives, eczema or rhinitis. Vital Signs Vital Signs Vital Signs: 10/12/23 02:59 10/12/23 03:06 10/12/23 03:36 Temperature 98.5 F Temperature Source Temporal Pulse Rate 74 Pulse Rate [Lying] Pulse Rate [Sitting (for 1 minute prior to obtaining)] Pulse Rate [Standing (for 1 minute prior to obtaining)] Respiratory Rate 20 H Respiratory Effort Respiratory Depth Respiratory Pattern Blood Pressure 142/54 H Blood Pressure [Lying] Blood Pressure [Sitting (for 1 minute prior to obtaining)] Blood Pressure [Standing (for 1 minute prior to obtaining)] Blood Pressure Mean 83 Blood Pressure Mean [Lying] Blood Pressure Mean [Sitting (for 1 minute prior to obtaining)] Blood Pressure Mean [Standing (for 1 minute prior to obtaining)] Pulse Ox 85 93 96 Oxygen Delivery Method Room Air Nasal Cannula Nasal Cannula Oxygen Flow Rate (L/min) 3 3 10/12/23 04:00 10/12/23 05:01 10/12/23 05:00 Temperature Temperature Source Pulse Rate 83 Pulse Rate [Lying] 77 Pulse Rate [Sitting (for 1 minute prior to obtaining)] 82 Pulse Rate [Standing (for 1 minute prior to obtaining)] 74 Respiratory Rate 21 H Respiratory Effort Normal Non-Labored Respiratory Depth Normal Respiratory Pattern Normal Blood Pressure 133/90 H Blood Pressure [Lying] 142/65 H Blood Pressure [Sitting (for 1 minute prior to obtaining)] 160/71 H Blood Pressure [Standing (for 1 minute prior to obtaining)] 141/64 H Blood Pressure Mean 104 Blood Pressure Mean [Lying] 90 Blood Pressure Mean [Sitting (for 1 minute prior to obtaining)] 100 Blood Pressure Mean [Standing (for 1 minute prior to obtaining)] 89 Pulse Ox 94 Oxygen Delivery Method Room Air Nasal Cannula Oxygen Flow Rate (L/min) Weight Weight: 250 lb 11.2 oz Body Mass Index (BMI) 43.0 Physical Exam Narrative Physical Examination: General: Awake, alert, oriented x 3 and cooperative, seated upright in the ED bed, fatigued, no acute distress. Skin: Normal color, normal turgor, no icterus, no cyanosis except occasional staged abrasion, scratches, bilateral lower extremity venous stasis skin changes. HEENT: AT/NC, EOMI, PERRLA, dry MM, no carotid bruits or JVD noted; however, very thickened neck makes evaluation difficult. Lungs: Diminished, distant, mildly increased respiratory rate but no distress, pursed lip breathing which she notes is chronic, no rales, ronchi or wheezing. Heart: Regular rate and rhythm; no gallop, rub audible. Abdomen: Soft, morbidly obese, NTTP, distant BS, difficult to discern distentionand HSM given habitus. Extremities: No cyanosis, no clubbing, mild peripheral nonpitting edema distallyin the bilateral lower extremity, see skin. Neurological: Patient awake, alert, oriented as noted, cognitive function intact; pupils equally reactive to light and accommodation, cranial nerves grossly normal, moving all 4 extremities, no focal deficits, strength moderatelyto severely global decreased. Psychiatric: Affect appears flat, fatigued, no acute evidence of depressive or anxiety feelings. Results Lab / Micro Data 10/12/23 03:50 10/12/23 03:20 Labs: Laboratory Results - last 24 hr 10/12/23 03:20: WBC Cancelled, Corrected WBC Cancelled, RBC Cancelled, Hgb Cancelled, Hct Cancelled, MCV Cancelled, MCH Cancelled, MCHC Cancelled, RDW Std Deviation Cancelled, RDW Coeff of [place] Cancelled, Plt Count Cancelled, MPV Cancelled, Immature Gran % (Auto) Cancelled, Neut % (Auto) Cancelled, Lymph % (Auto) Cancelled, [place] % (Auto) Cancelled, Eos % (Auto) Cancelled, Baso % (Auto)Cancelled, Absolute Neuts (auto) Cancelled, Absolute Lymphs (auto) Cancelled, Total Counted Cancelled, Neutrophils % (Manual) Cancelled, Band Neutrophils % Cancelled, Lymphocytes % (Manual) Cancelled, Monocytes % (Manual) Cancelled, Eosinophils % (Manual) Cancelled, Basophils % (Manual) Cancelled, Metamyelocytes% Cancelled, Myelocytes % Cancelled, Promyelocytes % Cancelled, Blast Cells % Cancelled, Plasma Cell % (Manual) Cancelled, Other Cells % Cancelled, Nucleated RBC % Cancelled, Nucleated RBCs/100 WBC Cancelled, Differential Comment Cancelled, Diff Path Review Cancelled, Hypersegmented Neuts Cancelled, Atypical Lymphocytes Cancelled, Reactive Lymphocytes Cancelled, Smudge Cells Cancelled, Toxic Granulation Cancelled, Toxic Vacuolation Cancelled, Dohle Bodies Cancelled, Meggan Rods Cancelled, Platelet Estimate Cancelled, Plt Morphology Comment Cancelled, RBC Morphology Cancelled 10/12/23 03:20: RBC Morphology Cancelled, Polychromasia Cancelled, HypochromasiaCancelled, Basophilic Stippling Cancelled, Anisocytosis Cancelled, Microcytosis Cancelled, Macrocytosis Cancelled, Spherocytes Cancelled, Sickle Cells Cancelled, Target Cells Cancelled, Tear Drop Cells Cancelled, Ovalocytes Cancelled, Stomatocytes Cancelled, Morgan-Dighton Bodies Cancelled, Mitchell Cells Cancelled, Bite Cells Cancelled, Crenated Cell Cancelled, Acanthocytes (Spur) Cancelled, Rouleaux Cancelled, Schistocytes Cancelled, Sodium 138, Potassium 3.9, Chloride 104, Carbon Dioxide 29.0, Anion Gap 5, BUN 16, Creatinine 1.14 H, Estim Creat Clear Calc 54.33, Est GFR (MDRD) Af Amer 60, Est GFR (MDRD) Non-Af 50 L, BUN/Creatinine Ratio 14.0, Glucose 247 H, Calcium 8.4 L 10/12/23 03:50: WBC 18.1 H, RBC 3.73 L, Hgb 12.6, Hct 37.9, MCV 101.6 H, MCH 33.8 H, MCHC 33.2, RDW Std Deviation 46.0 H, RDW Coeff of [place] 12.3, Plt Count 159, MPV 11.4, Immature Gran % (Auto) 0.400, Neut % (Auto) 83.0 H, Lymph % (Auto) 7.9 L, [place] % (Auto) 7.9, Eos % (Auto) 0.4, Baso % (Auto) 0.4, Absolute Neuts (auto) 15.0 H, Absolute Lymphs (auto) 1.44, Nucleated RBC % 0 Rhythm Strip Rhythm Strip: Sinus Rhythm Rate: 75 Ectopy: None Imaging Radiology Impression Brain CT 10/12/23 03:10 IMPRESSION: No acute intracranial finding. Electronically Signed: Mark Mcdowell MD at 3:47 EDT , Chest X-Ray 10/12/23 03:30 IMPRESSION: No acute pulmonary finding. Electronically Signed: Mark Mcdowell MD at 3:45 EDT , Assessment & Plan Assessment/Plan (1) Multiple falls: PLAN: Plan The patient is a 73 y/o F w/ PMHx: JONO using oxygen qHS only, CKD possible stageIII unclear subtype, Morbid Obesity, HTN, HLD, Chronic COPD w/ Chronic Hypoxic Respiratory Failure (2-3L NC), Former tobacco use, Nonobstructive CAD/Nonischemic cardiomyopathy who presents to the [facility] ED on 10/12/23 with historyof 3 days of progressively worsening fatigue, malaise, dizziness and frequent falls with no recent fevers or chills reporting that she has been losing her balance and occasionally falling backwards with no head trauma or loss of consciousness with mildly increased lower extremity swelling above her baseline and reports that she recently started new medications including bupropion to assist in decreasing her appetite but unfortunately upon evening prior to ED presentation following a fall she could not get up prompting EMS call and transition to the ED given severe debility. #1. Adult FTT secondary to Dizziness/LH, ? Vertiginous symptoms (lower suspicion), debility with frequent falls, adult failure to thrive with leukocytosis of unclear etiology: Will admit to PCU to be cautious, will hold patient bupropion especially given onset of frequent falls and dizziness following start of this medication, CT head without acute findings and timeline would have expected findings if CVA and also would be constant, will cycle cardiac enzymes, will obtain orthostatic vital signs, will judiciously hydrate pending orthostatic vital signs and may bolus IV fluids as needed pending results, magnesium level requested, FLP in AM, urinalysis and urine culture requested but pending upon evaluation, procalcitonin requested, will judiciouslyhydrate and repeat chest x-ray in the a.m. given concern for possibly infectiousunclear source as well, PT/OT/case management consult for discharge planning. #2. Nonobstructive CAD/nonischemic cardiomyopathy: Patient with single-vessel diagonal branch disease, nonobstructive, following with cardiology with last evaluation 08/28/2023 in the office, will continue aspirin, statin, Coreg, lisinopril home regimen. #3. Chronic COPD with chronic hypoxic respiratory failure (2-3L NC): Will maintain on home oxygen supplementation, continue ATC duonebs, PRN albuterol, HOB, IS parameters. #4. Hypertension: Continue home regimen including lisinopril, Coreg, PRN hydralazine. #5. Hyperlipidemia: We will continue patient on statin therapy. #6. Morbid Obesity: Weight loss and lifestyle changes encouraged. Will hold patient bupropion especially given onset of frequent falls and dizziness following start of this medication. #7. Former Tobacco Abuse: Encouraged continued tobacco cessation. #8. Chronic Kidney Disease Stage III unclear subtype per GFR trending: Admission BUN/Cr 16/1.14, GFR 50, baseline renal function 0.7-1.0, most recently noted 09/03/2023 creatinine 1.07 with at that time GFR noted to be 53 consistent with stage III, repeat BMP in AM. #9. JONO: Patient does not use CPAP or BiPAP but only supplemental oxygen at night. #10. DVT prophylaxis: Lovenox. #11. CODE status: Patient LIZETTEOA is her she notes and living will is shebelieves in place but uncertain. Discussed CODE status at length including difference between FULL code, DNR-CCA and DNR-CC status. Following discussions about the differences in these status, requested Full Code status. [facility] Care[facility]anning Face to Face Time: 16 minutes. Charges/Coding Visit Charges Inpatient E&M: 81244 Init Hosp L2 Procedures Hospitalists Procedures: 80846 Advncd Care Plan 30 Min 10/12/23 0549 <Electronically signed by Chantelle Chavarria MD> Cosigner Signature (if applicable): CC: Dr. Chantelle Chavarria MD; Dr. Justin Bolden MD~ Signed [facility] Work Phone: 1(715) 567-409511-02-2023 Procedure [facility] 03-25-2023 Progress note Author Blaise [facility] March 25, 2023 3:46pm Note Date/Time March 25, 2023 3:46pm [facility] Medical Records Department [address] [place] [address] Progress Note - Hospitalist 03/25/23 1545 MR#: [id number] Acct: [id number] Name: SALLY AYALA Rep #:[id number] : 1950 72 From: Blaise العلي DO PCP: Dr. Justin Bolden MD Status:ADM I N Location: [place] [address] Hospitalist Note Patient requires oxygen at rest at 5 L/min via nasal cannula, she requires oxygen at 6 L/min via nasal cannula during activity, she is expected to use oxygen during ADLs at her home and outside her home, she requires portable oxygen in order to carry out activities outside her home. Patient understands she is to use the oxygen as instructed/prescribed. 03/25/23 1546 <Electronically signed by Blaise العلي DO> Cosigner Signature (if applicable): CC: ~ Signed [facility] Work Phone: 1(868) 113-591209-20-2023 [facility]charge [facility] 25, [facility]23 2:36pm Note Date/Time March 25, 2023 2:07pm [facility] Medical Records Department [address] [facility] [place] [address] Instructions for Home/Discharge Instructions 03/25/23 1406 MR#: [id number] Acct: [id number] Name: SALLY AYALA Rep #:[id number] : 1950 72 From: Blaise العلي DO PCP: Dr. Justin Bolden MD Status:ADM I N Discharge Instructions Diet Discharge Diet: No restrictions Activity Discharge Activity: Return to Normal Activity Weight Bearing Status: Full weight bearing Follow Up Care Test Results: Test results from this visit will be discussed in further detail at your follow- up appointment, if applicable. Discharge Plan Admission Admit Date/Time: 03/19/23 17:50 Primary Reason for Your Visit: Observation of COPD, respiratory failure Attending Provider: Blaise العلي Primary Care Provider: Justin Bolden Consulting Providers: Jennie Salgado; Farhad Garza; Chirag Rodriguez; Bryce Razo; Donna Brunson; Tramaine Ordaz; Kurt Root; Catrachito Reynolds Discharge Orders/Prescriptions Prescriptions: New furosemide [Lasix] 40 mg tablet 40 mg PO DAILY Qty: 30 0RF prednisone 20 mg tablet 40 mg PO DAILY Qty: 11 0RF Rx Instructions: 1 twice a day for 3 days, then 1-1/2 daily for 2 days then 1 tablet daily for 2 days and stop Combivent Respimat 20-100 mcg/actuation mist 1 puff inhalation .QID Qty: 4 1RF Continued cholecalciferol (vitamin D3) 2,000 unit capsule 2,000 unit PO DAILY lisinopril 20 MG tablet 20 mg PO BID aspirin 81 MG tablet 81 mg PO DAILY simvastatin 40 MG tablet 40 mg PO QHS albuterol sulfate 1 PUFF inhaler 2 puff INHALATION Q4H PRN (Reason: SHORTNESS OF BREATH/WHEEZING ) imipramine HCl 25 MG tablet 25 - 50 mg PO QHS carvedilol 25 mg tablet 25 mg PO BID Qty: 180 3RF Referrals / Follow Up: Justin Bolden MD [Primary Care Provider] - Bryce Razo DO [Med Staff - Active Staff] - See Referral Note (In 2 weeks, callfor an appointment, let them know you were hospitalized) Disposition Disposition (needs filled in before D/C Order can be placed): Home, Self Care 03/25/23 1436<Electronically signed by Blaise العلي DO>Blaise العلي DO CC: SHANTA Reynolds; Dr. Chirag Rodriguez MD; Dr. Bryce Razo DO; Dr. Donna Brunson MD; Dr. Tramaine Ordaz MD; Dr. Farhad Garza MD; Dr. Jennie Salgado MD; Dr. Justin Bolden MD; Dr. Kurt Root MD ~ Signed [facility] Work Phone: 1(279) 876-290609-19-2023 Progress note Author Blaise [facility] March 24, 2023 7:10pm Note Date/Time March 24, 2023 7:10pm [facility] Medical Records Department [address] [place] [address] Progress Note - Hospitalist 03/24/231903 MR#: [id number] Acct: [id number] Name: SALLY AYALA Rep #:[id number] : 1950 72 From: Blaise العلي DO PCP: Dr. Justin Bolden MD Status:ADM I N Location: [place] [address] Reason for Visit Reason for Visit: Diagnoses Essential (primary) hypertension (03/19/23) Chronic obstructive pulmonary disease, unspecified (03/19/23) Hypoxemia (03/19/23) Tobacco use (03/19/23) Subjective Subjective Patient was seen and examined today, she still remains on 5 L nasal cannula at rest. Patient does not complain of any chest pain or shortness of breath at rest Objective Data Objective Data Vital Signs: Vital Signs Temp Pulse Resp BP Pulse Ox O2 Del Method O2 Flow Rate 97.3 F L 71 16 155/74 H 92 Nasal Cannula 5 03/24/23 14:35 03/24/23 14:35 03/24/23 14:35 03/24/23 14:35 03/24/23 14:35 03/24/23 14:35 03/24/23 14:35 Oxygen Flow Rate (L/min) [ 10 AMBULATING with Oxygen #3] Oxygen Flow Rate (L/min) [ 7 AMBULATING with Oxygen #2] Oxygen Flow Rate (L/min) [ 5 AMBULATING with Oxygen #1] Oxygen Flow Rate (L/min) [At 5 REST with Oxygen] Oxygen Flow Rate (L/min) 5 Oxygen Delivery Method Nasal Cannula Weight: 108.5 kg Body Mass Index (BMI) 41.0 Intake & Output: Intake and Output for Last 24 Hours 03/22/23 03/23/23 03/24/23 23:59 23:59 23:59 Intake Total 1485.49 / 1685.49 669.63 / 669.63 780 / 780 Output Total 1550 / 2050 1400 / 2950 1950 / 1950 Balance -64.51 / -364.51 -730.37 / -2280.37 -1170 / -1170 Lab / Micro Data 03/23/23 04:27 03/23/23 04:27 Micro: Microbiology 03/19/23 21:10 Mucosa - Nasopharyngeal Respiratory Panel (PCR) - Final 03/19/23 17:15 Nasal Secretion SARS-CoV-2 & FLU Antigen (Rapid) - Final Physical Exam Narrative alert, oriented x3 and no apparent distress Constitutional Narrative: Patient is morbidly obese General Appearance: cooperative, well kempt and well developed Orientation / Consciousness: awake, oriented to person, oriented to place and oriented to time HEENT normocephalic, head/scalp atraumatic and moist oral mucous membranes Eyes PERRL, EOMs intact bilaterally and conjunctivae normal Neck supple, no JVD, thyroid normal and no carotid bruits General: trachea midline Resp normal respiratory effort, no retractions and no use of accessory muscles Resp Narrative: Auscultation: Breath sounds are diminished bilaterally, no rhonchi or wheezes are noted Cardio regular rate, regular rhythm, S1 normal heart sound, S2 normal heart sound, no murmurs, no rub and no gallops GI normal to inspection, nondistended, normoactive bowel sounds, soft to palpation,non-tender and non-distended Extremity no clubbing, cyanosis or edema Skin no rashes or lesions noted General Skin Exam: no breakdown Neuro oriented x3, CN's II-XII intact bilaterally, moves all extremities, no focal motor deficits and no sensory deficits noted Sensorium / Orientation: awake, alert, oriented to person, oriented to place andoriented to time Speech: speech normal Psych affect normal Assessment & Plan Assessment/Plan (1) COPD (chronic obstructive pulmonary disease): PLAN: Plan 1. Acute exacerbation of COPD-patient will remain on her present treatment, shewill need a walking pulse oximetry tomorrow, patient may be stable for dischargehome tomorrow, she will be reevaluated tomorrow morning #2 essential hypertension-patient will remain on her present blood pressure medications #3 acute hypoxic respiratory failure secondary to #1-patient's oxygen will be monitored, she is still on high flow oxygen at rest #4 morbid obesity-complicates care, medical course, recovery, and prognosis #5 coronary artery disease-patient will remain on her present medications, I have decided to change the patient over to oral Lasix and stop her IV Lasix. Total clinical time spent by myself addressing the patient's medical issues, reviewing the data, and collaborating with patient's care team: 35 minutes Charges/Coding Visit Charges Inpatient E&M: 34505 Subs Hosp L2 03/24/231909 <Electronically signed by Blaise العلي DO> Cosigner Signature (if applicable): CC: ~ Signed [facility] Work Phone: 1(515) 416-925409-19-2023 Progress note Author Bryce Razo [facility] March 24, 2023 10:12am Note Date/Time March 24, 2023 10:12am [facility] Medical Records Department [address] [place] [address] Progress Note - [employer] 03/24/23 1010 MR#: [id number] Acct: [id number] Name: SALLY AYALA Rep #:[id number] : 1950 72 From: Bryce Razo DO PCP: Dr. Justin Bolden MD Status:ADM I N Location: [place] [address] Assessment & Plan Assessment/Plan (1) Hypoxia: PLAN: Plan RECOMMENDATIONS: 1. Wean supplemental oxygen to maintain saturations at or above 90%. 2. Ongoing diuresis as tolerated by hemodynamics and renal function. 3. Continue scheduled bronchodilators. 4. Continue prednisone 40 mg daily. Anticipate 5-day burst at discharge. 5. Perform walking oximetry study prior to consideration for discharge home. 6. Outpatient pulmonary follow-up in 2 weeks. IMPRESSIONS: 1. Shortness of breath and hypoxemia The patient presented to the hospital with blood pressures in excess of 200 mmHgsystolic and radiographic evidence of pleural effusions and atelectasis. In addition, the patient has an extensive tobacco abuse history and could certainlyhave an underlying component of obstructive lung disease. I do suspect that based upon her polycythemia, she has likely been hypoxemic for quite some time. At this time, it is reasonable to continue scheduled bronchodilators, steroids and IV Lasix, as tolerated by hemodynamics and renal function. The patient should be encouraged to utilize her incentive spirometer. Perform walking oximetry study prior to consideration for discharge home. The patient should ideally follow-up in the pulmonary medicine clinic in 2 weeks so that baseline PFTs can be obtained and maintenance bronchodilators initiated. 2. Chronic tobacco dependency The patient smoked until her admission to the hospital. She does have subcentimeter pulmonary nodules on chest imaging, all of which appear to be stable. However, in light of her age and tobacco abuse history, recommend yearly low-dose CT imaging of the chest. 3. Morbid obesity/hypertension/hyperlipidemia Complicates care, management, recovery and prognosis. Continue home medicationsas indicated. This note was generated with [employer] dictation software. It may contain incorrectwords, spelling, and punctuation that were not noted in checking the note beforesigning. Subjective Subjective The patient was seen and examined at the bedside this morning. Events from the last 24 hours have been reviewed. The patient is currently afebrile, hemodynamically stable and maintaining appropriate oxygen saturations on 5 L/minvia nasal cannula. The patient had an uneventful night and has been compliant with the use of her incentive spirometer. Objective Data Objective Data The patient's most recent lab work, culture data and imaging studies have all been personally reviewed. Vital Signs: Vital Signs Temp Pulse Resp BP Pulse Ox O2 Del Method O2 Flow Rate 98.2 F 76 16 150/70 H 93 Nasal Cannula 5 03/24/23 09:05 03/24/23 09:05 03/24/23 09:05 03/24/23 09:05 03/24/23 09:05 03/24/23 09:05 03/24/23 09:05 Oxygen Flow Rate (L/min) [ 10 AMBULATING with Oxygen #3] Oxygen Flow Rate (L/min) [ 7 AMBULATING with Oxygen #2] Oxygen Flow Rate (L/min) [ 5 AMBULATING with Oxygen #1] Oxygen Flow Rate (L/min) [At 5 REST with Oxygen] Oxygen Flow Rate (L/min) 5 Oxygen Delivery Method Nasal Cannula Weight: 239 lb 3.225 oz Body Mass Index (BMI) 41.0 Intake & Output: Intake and Output for Last 24 Hours 03/22/23 03/23/23 03/24/23 23:59 23:59 23:59 Intake Total 1485.49 / 1685.49 669.63 / 669.63 0 / 0 Output Total 1550 / 2050 1400 / 2950 1949 Balance -64.51 / -364.51 -730.37 / -2280.37 -1949 / 1950 Lab / Micro Data Attestation: I reviewed the patient's lab results. 03/23/23 04:27 03/23/23 04:27 Labs: Laboratory Results - last 24 hr 03/23/23 11:43: APTT 68.5 H 03/23/23 17:24: APTT 58.8 H Micro: Microbiology 03/19/23 21:10 Mucosa - Nasopharyngeal Respiratory Panel (PCR) - Final 03/19/23 17:15 Nasal Secretion SARS-CoV-2 & FLU Antigen (Rapid) - Final Radiography Diagnostic Testing: Radiology Impression Venous Doppler Study 03/19/23 20:32 Interpretation Summary Deep veins of the bilateral lower extremities are patent and compressible segmentally. There is no evidence of bilateral lower extremity deep vein thrombosis. The bilateral great saphenous veins appear patent and compressible segmentally. Ordering Physician: Jennie Salgado Referring Physician: Justin Bolden Performed By: Jake Saravia RVT Physical Exam Const alert and no apparent distress Constitutional Narrative: Obese. General Appearance: cooperative HEENT normocephalic and head/scalp atraumatic Eyes PERRL, EOMs intact bilaterally and conjunctivae normal Neck supple General: trachea midline Chest inspection of chest normal Resp normal respiratory effort Auscultation: rales and diminished lung sounds Cardio regular rate and regular rhythm GI normal to inspection, nondistended, normoactive bowel sounds Extremity no clubbing, cyanosis or edema Skin no rashes or lesions noted Neuro CN's II-XII intact bilaterally, moves all extremities and no focal motor deficits Psych cooperative and affect normal Charges/Coding Visit Charges Inpatient E&M: 77174 Subs Hosp L2 03/24/23 1012 <Electronically signed by Bryce Razo DO> Cosigner Signature (if applicable): CC: ~ Signed [facility] Work Phone: [phone]) 316-838409-19-2023 Consult note Author Bryce Razo [facility] March 24, 2023 7:59am Note Date/Time March 23, 2023 11:30am [facility] Medical Records Department [address] [place] [address] Consultation - Outside Energy Sales Representatives 03/23/23 1126 MR#: [id number] Acct: [id number] Name: SALLY AYALA Rep #:[id number] : 1950 72 From: Bryce Razo DO PCP: Dr. Justin Bolden MD Status:ADM I N Location: [place] [address] Assessment & Plan Assessment/Plan (1) Hypoxia: PLAN: Plan RECOMMENDATIONS: 1. Wean supplemental oxygen to maintain saturations at or above 90%. 2. Continue attempts at gentle diuresis as tolerated by hemodynamics and renal function. 3. Continue scheduled bronchodilators. 4. Transition to prednisone 40 mg daily beginning tomorrow. Anticipate 5-day burst at discharge. 5. Perform walking oximetry study prior to consideration for discharge home. 6. Outpatient pulmonary follow-up in 2 weeks. IMPRESSIONS: 1. Shortness of breath and hypoxemia The patient presented to the hospital with blood pressures in excess of 200 mmHgsystolic and radiographic evidence of pleural effusions and atelectasis. In addition, the patient has an extensive tobacco abuse history and could certainlyhave an underlying component of obstructive lung disease. I do suspect that based upon her polycythemia, she has likely been hypoxemic for quite some time. At this time, it is reasonable to continue scheduled bronchodilators, steroids and IV Lasix, as tolerated by hemodynamics and renal function. The patient should be encouraged to utilize her incentive spirometer. Perform walking oximetry study prior to consideration for discharge home. The patient should ideally follow-up in the pulmonary medicine clinic in 2 weeks so that baseline PFTs can be obtained and maintenance bronchodilators initiated. 2. Chronic tobacco dependency The patient smoked until her admission to the hospital. She does have subcentimeter pulmonary nodules on chest imaging, all of which appear to be stable. However, in light of her age and tobacco abuse history, recommend yearly low-dose CT imaging of the chest. 3. Morbid obesity/hypertension/hyperlipidemia Complicates care, management, recovery and prognosis. Continue home medicationsas indicated. This note was generated with Crzy[employer] software. It may contain incorrectwords, spelling, and punctuation that were not noted in checking the note beforesigning. HPI Consult Data Date of Consult: 03/24/23 HPI Narrative Reason for Consultation: COPD HPI Narrative: The patient is a 72-year-old female, with a history as outlined below, who presented to the emergency department on March 19 with shortness of breath and hypoxemia. The patient reported that she was being evaluated at the office of her primary care provider, at which time, she was noted to be significantly hypertensive with an oxygen saturation of approximately 90% on room air. She was subsequently referred to the emergency department for evaluation. The patient does have an extensive tobacco abuse history, but stated that she has not smoked any cigarettes since her admission to the hospital. She has never been evaluated by a hot mill tin roller in the past. The patient has never completed pulmonary function studies. She does not regularly utilize supplemental oxygen at her baseline. On presentation to the emergency department, the patient was noted to be afebrile and was notably hypertensive with a blood pressure of 203/121 mmHg. The patient was hypoxemic, requiring supplemental oxygen. Initial laboratory evaluation demonstrated no evidence of a leukocytosis. Hemoglobin was elevated at 17.3 g/dL. Troponin and BNP were negative. Chemistry profile was notable for a bicarbonate of 33. Creatinine was within normal limits. CT imaging of the chest demonstrated bilateral pleural effusions. A CTA chest was then completed on March 21 which demonstrated no evidence for pulmonary embolism. The patient does have a stable subcentimeter pulmonary nodule in the left upperlobe. Echocardiogram completed on March 20 demonstrated moderate concentric LVH with stage I diastolic dysfunction. The patient was placed on bronchodilators, steroids and Lasix. [facility] Medical History (Updated 03/23/23 @ 19:[address] Blaise العلي DO) Atherosclerotic heart disease of [place] coronary artery without angina pectoris Bronchitis COPD (chronic obstructive pulmonary disease) Diabetes Essential (primary) hypertension Hyperlipidemia LBBB (left bundle branch block) Nicotine abuse Nonischemic cardiomyopathy Home Medications albuterol sulfate 90 mcg/actuation aerosol inhaler 2 puff inhalation Q4H PRN SHORTNESS OF BREATH/WHEEZING 10/02/16 [History Last Taken Unknown] aspirin 81 mg tablet,delayed release 81 mg PO DAILY HEART HEALTH 10/02/16 [History Last Taken 03/18/23] imipramine HCl 25 mg tablet 25 - 50 mg PO QHS BLADDER CONTROL 10/02/16 [History Last Taken 03/18/23] lisinopril 20 mg tablet 20 mg PO BID BLOOD PRESSURE 10/02/16 [History Last Taken 03/18/23] simvastatin 40 mg tablet 40 mg PO QHS CHOLESTEROL 10/02/16 [History Last Taken 03/18/23] cholecalciferol (vitamin D3) 50 mcg (2,000 unit) capsule 2,000 unit PO DAILY SUPPLEMENT 11/24/17 [History Last Taken 03/18/23] carvedilol 25 mg tablet 25 mg PO BID HEART #180 tabs 09/03/20 [Rx Last Taken 03/18/23] Allergy/AdvReac Type Severity Reaction Status Date / Time Iodinated Contrast Media Allergy Other Verified 10/21/22 13:06 [CONTRASTS] meperidine [From Demerol] Allergy Unknown Verified 10/21/22 13:06 Penicillins [PCN] Allergy Rash Verified 10/21/22 13:06 Family History Mother Hypertension Diabetes Father Cancer Surgical History History of appendectomy History of cataract surgery History of cholecystectomy History of colonoscopy with polypectomy History of left heart catheterization (09/03/11) History of total hip arthroplasty Social History Smoking Status: Current every day smoker tobacco type: cigarettes alcohol intake: current substance use type: does not use ROS ROS Narrative 10 systems were reviewed with pertinent positives as noted in the HPI above. Physical Exam Const alert and no apparent distress Constitutional Narrative: Obese. Sitting in bedside recliner. General Appearance: cooperative HEENT normocephalic and head/scalp atraumatic Eyes PERRL, EOMs intact bilaterally and conjunctivae normal Neck supple General: trachea midline Chest inspection of chest normal Resp normal respiratory effort Auscultation: rales and diminished lung sounds Cardio regular rate and regular rhythm GI normal to inspection, nondistended, normoactive bowel sounds Extremity no clubbing, cyanosis or edema Skin no rashes or lesions noted Neuro CN's II-XII intact bilaterally, moves all extremities and no focal motor deficits Psych cooperative and affect normal Lab / Micro Data 03/23/23 04:27 03/23/23 04:27 Labs: Laboratory Results - last 24 hr 03/22/23 14:56: APTT 58.5 H 03/22/23 21:35: APTT 50.4 H 03/23/23 04:27: WBC 17.3 H, RBC 5.12, Hgb 15.3 H, Hct 50.7 H, MCV 99.0, MCH 29.9, MCHC 30.2 L, RDW Std Deviation 52.6 H, RDW Coeff of [place] 14.3, Plt Count 176, MPV 12.0, Immature Gran % (Auto) 0.600, Neut % (Auto) 85.8 H, Lymph % (Auto) 8.0 L, [place] % (Auto) 5.4, Eos % (Auto) 0.0, Baso % (Auto) 0.2, Absolute Neuts (auto) 14.8 H, Absolute Lymphs (auto) 1.38, Nucleated RBC % 0, APTT 83.6 H, Sodium 138, Potassium 4.0, Chloride 100, Carbon Dioxide 36.0 H, Anion Gap 2 L, BUN 19 H, Creatinine 0.73, Estim Creat Clear Calc 43.91, Est GFR (MDRD) Af Amer 101, Est GFR (MDRD) Non-Af 83, BUN/Creatinine Ratio 26.0 H, Glucose 218 H, Calcium 8.3 L Charges/Coding Visit Charges Inpatient E&M: 24475 Init Hosp L3 03/24/23 9036 <Electronically signed by Bryce Razo DO> Cosigner Signature (if applicable): CC: SHANTA Reynolds; Dr. Chirag Rodriguez MD; Dr. Bryce Razo DO; Dr. Donna Brunson MD; Dr. Tramaine Ordaz MD; Dr. Farhad Garza MD; Dr. Jennie Salgado MD; Dr. Justin Bolden MD; Dr. Kurt Root MD~ Signed [facility] Work Phone: [phone] Progress note Author [facility] March 23, 2023 7:46pm Note Date/Time March 23, 2023 7:46pm [facility] Medical Records Department [address] [place] [address] Progress Note - Hospitalist 03/23/231940 MR#: [id number] Acct: [id number] Name: SALLY AYALA Rep #:[id number] : 1950 72 From: Blaise العلي DO PCP: Dr. Justin Bolden MD Status:ADM I N Location: [place] [address] Reason for Visit Reason for Visit: Diagnoses Essential (primary) hypertension (03/19/23) Hypoxemia (03/19/23) Tobacco use (03/19/23) Subjective Subjective Patient was seen and examined today, she is still requiring 6 L of oxygen at rest, I had pulmonary medicine see the patient today for consultation. Objective Data Objective Data Vital Signs: Vital Signs Temp Pulse Resp BP Pulse Ox O2 Del Method O2 Flow Rate 98.0 F 76 18 136/71 H 93 Nasal Cannula 6 03/23/23 15:20 03/23/23 15:20 03/23/23 15:20 03/23/23 15:20 03/23/23 15:20 03/23/23 15:45 03/23/23 15:45 Oxygen Flow Rate (L/min) [ 10 AMBULATING with Oxygen #3] Oxygen Flow Rate (L/min) [ 7 AMBULATING with Oxygen #2] Oxygen Flow Rate (L/min) [ 5 AMBULATING with Oxygen #1] Oxygen Flow Rate (L/min) [At 5 REST with Oxygen] Oxygen Flow Rate (L/min) 6 Oxygen Delivery Method Nasal Cannula Weight: 108 kg Body Mass Index (BMI) 40.8 Intake & Output: Intake and Output for Last 24 Hours 03/21/23 03/22/2323 23:59 23:59 23:59 Intake Total 233.95 / 473.95 1485.49 / 1685.49 588.96 / 588.96 Output Total 1050 / 1400 1550 / 2050 1400 / 1400 Balance -816.05 / -926.05 -64.51 / -364.51 -811.04 / -811.04 Lab / Micro Data 03/23/23 04:27 03/23/23 04:27 Labs: Laboratory Results - last 24 hr 03/22/23 21:35: APTT 50.4 H 03/23/23 04:27: WBC 17.3 H, RBC 5.12, Hgb 15.3 H, Hct 50.7 H, MCV 99.0, MCH 29.9, MCHC 30.2 L, RDW Std Deviation 52.6 H, RDW Coeff of [place] 14.3, Plt Count 176, MPV 12.0, Immature Gran % (Auto) 0.600, Neut % (Auto) 85.8 H, Lymph % (Auto) 8.0 L, [place] % (Auto) 5.4, Eos % (Auto) 0.0, Baso % (Auto) 0.2, Absolute Neuts (auto) 14.8 H, Absolute Lymphs (auto) 1.38, Nucleated RBC % 0, APTT 83.6 H, Sodium 138, Potassium 4.0, Chloride 100, Carbon Dioxide 36.0 H, Anion Gap 2 L,BUN 19 H, Creatinine 0.73, Estim Creat Clear Calc 43.91, Est GFR (MDRD) Af Amer 101, Est GFR (MDRD) Non-Af 83, BUN/Creatinine Ratio 26.0 H, Glucose 218 H, Calcium 8.3 L 03/23/23 11:43: APTT 68.5 H 03/23/23 17:24: APTT 58.8 H Micro: Microbiology 03/19/23 21:10 Mucosa - Nasopharyngeal Respiratory Panel (PCR) - Final 03/19/23 17:15 Nasal Secretion SARS-CoV-2 & FLU Antigen (Rapid) - Final Radiography Diagnostic Testing: Radiology Impression Venous Doppler Study 03/19/23 20:32 Interpretation Summary Deep veins of the bilateral lower extremities are patent and compressible segmentally. There is no evidence of bilateral lower extremity deep vein thrombosis. The bilateral great saphenous veins appear patent and compressible segmentally. Ordering Physician: Jennie Salgado Referring Physician: Justin Bolden Performed By: Jake Saravia RVT Physical Exam Const alert, oriented x3 and no apparent distress Constitutional Narrative: Patient is morbidly obese General Appearance: cooperative, well kempt and well developed Orientation / Consciousness: awake, oriented to person, oriented to place and oriented to time HEENT normocephalic, head/scalp atraumatic and moist oral mucous membranes Eyes PERRL, EOMs intact bilaterally and conjunctivae normal Neck supple, no JVD, thyroid normal and no carotid bruits General: trachea midline Resp normal respiratory effort, no retractions and no use of accessory muscles Resp Narrative: Scattered expiratory wheezes are noted bilaterally Auscultation: wheezes scattered wheezes and throughout; Negative for rales or rhonchi Cardio regular rate, regular rhythm, S1 normal heart sound, S2 normal heart sound, no murmurs, no rub and no gallops GI normal to inspection, nondistended, normoactive bowel sounds, soft to palpation,non-tender and non-distended Extremity no clubbing, cyanosis or edema Skin no rashes or lesions noted General Skin Exam: no breakdown Neuro oriented x3, CN's II-XII intact bilaterally, moves all extremities, no focal motor deficits and no sensory deficits noted Sensorium / Orientation: awake, alert, oriented to person, oriented to place andoriented to time Speech: speech normal Psych affect normal Assessment & Plan Assessment/Plan (1) COPD (chronic obstructive pulmonary disease): PLAN: Plan 1. Acute exacerbation of COPD-I placed the patient on IV corticosteroids today,she will continue to receive aerosol treatments, pulmonary medicine saw her in consultation today. #2 essential hypertension-patient will remain on her present blood pressure medications #3 acute hypoxic respiratory failure secondary to #1-patient's oxygen will be monitored, she is still on high flow oxygen #4 morbid obesity-complicates care, medical course, recovery, and prognosis #5 coronary artery disease-patient will remain on her present medications Patient's venous duplex of her lower extremities were negative for DVT, I have decided to stop her heparin drip Total clinical time spent by myself addressing the patient's medical issues, reviewing the data, and collaborating with patient's care team: 35 minutes Charges/Coding Visit Charges Inpatient E&M: 63645 Subs Hosp L2 03/23/231945 <Electronically signed by Blaise العلي DO> Cosigner Signature (if applicable): CC: ~ Signed [facility] Work Phone: [phone]) 148-558709-17-2023 Progress note Author Farhad Garza [facility] March 22, 2023 9:48am Note Date/Time March 22, 2023 9:48am [facility] Medical Records Department [address] [place] [address] Progress Note - Hospitalist 03/22/2345 MR#: [id number] Acct: [id number] Name: SALLY AYALA Rep #:[id number] : 1950 72 From: Farhad funes MD PCP: Dr. Justin Bolden MD Status:ADM I N Location: [place] [address] Subjective Subjective Doing well, no issues overnight. Still requiring around 6-8 L nasal cannula Objective Data Objective Data Vital Signs: Vital Signs Temp Pulse Resp BP Pulse Ox O2 Del Method O2 Flow Rate 97.2 F L 76 16 132/92 H 94 High Flow 6 03/22/23 08:30 03/22/23 08:30 03/22/23 08:30 03/22/23 08:30 03/22/23 08:30 03/22/23 08:30 03/22/23 08:30 Oxygen Flow Rate (L/min) [ 10 AMBULATING with Oxygen #3] Oxygen Flow Rate (L/min) [ 7 AMBULATING with Oxygen #2] Oxygen Flow Rate (L/min) [ 5 AMBULATING with Oxygen #1] Oxygen Flow Rate (L/min) [At 5 REST with Oxygen] Oxygen Flow Rate (L/min) 6 Oxygen Delivery Method High Flow Weight: 235 lb 10.786 oz Body Mass Index (BMI) 40.4 Intake & Output: Intake and Output for Last 24 Hours 03/21/23 03/22/23 03/23/23 03:59 03:59 03:59 Intake Total 832.17 / 832.17 490.00 / 490.00 292.6 / 292.6 Output Total 1550 / 1550 1100 / 1100 400 / 400 Balance -717.83 / -717.83 -610.00 / -610.00 -107.4 / -107.4 Lab / Micro Data 03/22/23 06:00 03/22/23 06:00 Labs: Laboratory Results - last 24 hr 03/21/23 12:43: APTT 84.5 H 03/21/23 20:55: APTT 42.4 H 03/22/23 06:00: WBC 26.6 H, RBC 5.32, Hgb 16.0 H, Hct 52.9 H, MCV 99.4 H, MCH 30.1, MCHC 30.2 L, RDW Std Deviation 52.1 H, RDW Coeff of [place] 14.3, Plt Count 183, MPV 12.3 H, Immature Gran % (Auto) 0.500, Neut % (Auto) 86.8 H, Lymph % (Auto) 5.4 L, [place] % (Auto) 5.0, Eos % (Auto) 2.1, Baso % (Auto) 0.2, Absolute Neuts (auto) 23.1 H, Absolute Lymphs (auto) 1.43, Nucleated RBC % 0, Differential Comment SCANNED, APTT 50.4 H, Sodium 137, Potassium 4.1, Chloride 100, Carbon Dioxide 35.0 H, Anion Gap 2 L, BUN 19 H, Creatinine 0.97, Estim Creat Clear Calc45.27, Est GFR (MDRD) Af Amer 73, Est GFR (MDRD) Non-Af 60, BUN/Creatinine Ratio19.6, Glucose 163 H, Calcium 8.8 Micro: Microbiology 03/19/23 21:10 Mucosa - Nasopharyngeal Respiratory Panel (PCR) - Final 03/19/23 17:15 Nasal Secretion SARS-CoV-2 & FLU Antigen (Rapid) - Final Physical Exam Narrative General: Alert, Oriented x3, Cooperative, mild to moderate respiratory distress HEENT: Atraumatic, PERRLA, EOMI, Normocephalic Oral: Moist Mucosa Neck: Supple, No JVD Lungs: Diminished, Normal air movement, No rhonchi, wheeze, No rales, intermittent tachypnea, can only do 3 word sentences, some retractions Cardiovascular: Regular rate, Regular Rhythm, Normal S1, Normal S2, No murmurs Abdomen: Soft, Non Tender, Non-Distended, No Hepato-splenomegaly Extremities: No edema, Capillary Refill Less than 3 Seconds Skin: No rashes, No breakdown Musculoskeletal: No Tenderness to Palpation of Joints or Extremities Neurological: Motor Exam 5/5 strength throughout, Sensory exam intact to light touch and pain Psych/Mental Status: Normal Affect, Appropriate Assessment & Plan Assessment/Plan (1) Hypoxia: (2) Nicotine abuse: (3) Essential (primary) hypertension: PLAN: Plan 1. Acute hypoxic respiratory failure unclear etiology/COPD/tobacco abuse -68% on RA on arrival, improved with O2 -Patient has documented history of COPD and uses albuterol at home, will schedule nebs, she did have some wheezing on my exam we will continue with breathing treatments ? We will place on p.o. prednisone -BNP was within normal limits and troponin also within normal limits, though CT and chest x-ray showed small pleural effusions -Echo with 70% EF and stage I diastolic dysfunction no signs of right heart strain -Suspect there is a chronic component given her elevated hemoglobin and bicarb, will obtain VBG, also would benefit from outpatient sleep apnea evaluation and pulm follow-up -D-dimer was elevated proceed with a CTA which was negative for PE but it did show bilateral minimal pleural effusions ? We will continue with the heparin drip as the Doppler ultrasounds have not been read yet -COVID and respiratory panels are negative ? Discussed cessation 2. HTN/HLD/hypertensive urgency ? Present with a systolic blood pressure of 203 with no endorgan damage ? Continue with her home blood pressure medications ? We will continue to monitor and make adjustments as necessary ? To help with her breathing will continue with twice daily Lasix monitor her renal function 3. Morbid obesity -BMI 51.8 kg/m? -Complicates treatment, prognosis, outcomes -Recommend weight loss and lifestyle changes 4. Possible adrenal incedentaloma -CT queried 1.5cm left adrenal nodule ? Will need further evaluation moving forward DVT: Heparin drip Charges/Coding Visit Charges Inpatient E&M: 20542 Subs Hosp L2 03/22/23 0948 <Electronically signed by Farhad Garza MD> Cosigner Signature (if applicable): CC: ~ Signed [facility] Work Phone: [phone]) 667-426009-16-2023 Progress note Author Farhad Garza [facility] March 21, 2023 8:39am Note Date/Time March 21, 2023 8:39am [facility] Medical Records Department [address] [place] [address] Progress Note - Hospitalist 03/21/23 0837 MR#: [id number] Acct: [id number] Name: SALLY AYALA Rep #:[id number] : 1950 72 From: Farhad funes MD PCP: Dr. Justin Bolden MD Status:ADM I N Location: [place] [address] Subjective Subjective Sleepy this morning because she had received Benadryl for the contrast for CTA as well as a dose of Ativan per claustrophobia Objective Data Objective Data Vital Signs: Vital Signs Temp Pulse Resp BP Pulse Ox O2 Del Method O2 Flow Rate 96.8 F L 68 18 148/77 H 95 Nasal Cannula 5 03/21/23 08:03 03/21/23 08:03 03/21/23 08:03 03/21/23 08:03 03/21/23 08:03 03/21/23 08:03 03/21/23 08:03 Oxygen Flow Rate (L/min) 5 Oxygen Delivery Method Nasal Cannula Weight: 235 lb 10.786 oz Body Mass Index (BMI) 40.4 Intake & Output: Intake and Output for Last 24 Hours 03/20/23 03/21/23 03/22/23 03:59 03:59 03:59 Intake Total 832.17 / 832.17 88 / 88 Output Total 1050 / 1050 1550 / 1550 350 / 350 Balance -1050 / -1050 -717.83 / -717.83 -262 / -262 Lab / Micro Data 03/21/23 04:30 03/21/23 04:30 Labs: Laboratory Results - last 24 hr 03/20/23 13:50: APTT 101.8 H* 03/20/23 21:56: APTT 66.5 H 03/21/23 04:30: WBC 8.7, RBC 5.54 H, Hgb 16.5 H, Hct 56.6 H, MCV 102.2 H, MCH 29.8, MCHC 29.2 L, RDW Std Deviation 53.9 H, RDW Coeff of [place] 14.1, Plt Count 174, MPV 11.4, Immature Gran % (Auto) 0.300, Neut % (Auto) 86.2 H, Lymph % (Auto) 12.7 L, [place] % (Auto) 0.6, Eos % (Auto) 0.0, Baso % (Auto) 0.2, Absolute Neuts (auto) 7.5, Absolute Lymphs (auto) 1.11, Nucleated RBC % 0, APTT 89.0 H, Sodium 137, Potassium 4.1, Chloride 104, Carbon Dioxide 31.0, Anion Gap 2 L, BUN12, Creatinine 0.79, Estim Creat Clear Calc 43.91, Est GFR (MDRD) Af Amer 92, Est GFR (MDRD) Non-Af 76, BUN/Creatinine Ratio 15.2, Glucose 206 H, Calcium 8.3 L Micro: Microbiology 03/19/23 21:10 Mucosa - Nasopharyngeal Respiratory Panel (PCR) - Final 03/19/23 17:15 Nasal Secretion SARS-CoV-2 & FLU Antigen (Rapid) - Final Radiography Diagnostic Testing: Radiology Impression Echocardiogram 03/19/23 19:55 Interpretation Summary Normal LV size. Left ventricular systolic function is normal. The estimated ejection fraction is 70 %. Stage 1 diastolic dysfunction. Moderate focal aortic valve calcification. Ordering Physician: Jennie Salgado Referring Physician: Justin Bolden Performed By: Daphne Cao, RDCS, RVT Physical Exam Narrative General: Alert, Oriented x3, Cooperative, mild to moderate respiratory distress HEENT: Atraumatic, PERRLA, EOMI, Normocephalic Oral: Moist Mucosa Neck: Supple, No JVD Lungs: Diminished, Normal air movement, No rhonchi, wheeze, No rales, intermittent tachypnea, can only do 3 word sentences, some retractions Cardiovascular: Regular rate, Regular Rhythm, Normal S1, Normal S2, No murmurs Abdomen: Soft, Non Tender, Non-Distended, No Hepato-splenomegaly Extremities: No edema, Capillary Refill Less than 3 Seconds Skin: No rashes, No breakdown Musculoskeletal: No Tenderness to Palpation of Joints or Extremities Neurological: Motor Exam 5/5 strength throughout, Sensory exam intact to light touch and pain Psych/Mental Status: Normal Affect, Appropriate Assessment & Plan Assessment/Plan (1) Hypoxia: (2) Nicotine abuse: (3) Essential (primary) hypertension: PLAN: Plan 1. Acute hypoxic respiratory failure unclear etiology/COPD/tobacco abuse -68% on RA on arrival, improved with O2 -Patient has documented history of COPD and uses albuterol at home, will schedule nebs, she did have some wheezing on my exam we will continue with breathing treatments May trial steroids -BNP was within normal limits and troponin also within normal limits, though CT and chest x-ray showed small pleural effusions -Echo with 70% EF and stage I diastolic dysfunction no signs of right heart strain -Suspect there is a chronic component given her elevated hemoglobin and bicarb, will obtain VBG, also would benefit from outpatient sleep apnea evaluation and pulm follow-up -D-dimer was elevated however given the abnormal chest x-ray we will proceed with a CTA and placed on the contrast allergy protocol -COVID and respiratory panels are negative ? Discussed cessation 2. HTN/HLD/hypertensive urgency ? Present with a systolic blood pressure of 203 with no endorgan damage ? Continue with her home blood pressure medications ? We will continue to monitor and make adjustments as necessary 3. Morbid obesity -BMI 51.8 kg/m? -Complicates treatment, prognosis, outcomes -Recommend weight loss and lifestyle changes 4. Possible adrenal incedentaloma -CT queried 1.5cm left adrenal nodule ? Will need further evaluation moving forward DVT: Heparin drip Charges/Coding Visit Charges Inpatient E&M: 57237 Subs Hosp L2 03/21/23 8485 <Electronically signed by Farhad Garza MD> Cosigner Signature (if applicable): CC: ~ Signed [facility] Work Phone: [phone]) 305-905109-15-2023 Progress note Author Farhad [facility] March 20, 2023 11:44am Note Date/Time March 20, 2023 11:44am [facility] Medical Records Department [address] [place] [address] Progress Note - Hospitalist 03/20/23 1139 MR#: [id number] Acct: [id number] Name: SALLY AYALA Rep #:[id number] : 1950 72 From: Farhad funes MD PCP: Dr. Justin Bolden MD Status:ADM I N Location: [place] [address] Subjective Subjective Feels about the same as yesterday, she still requiring 5 L nasal cannula. She is unclear as to the reaction she has had with contrast in the past however given the abnormality seen on chest x-ray cannot proceed with a VQ scan this wasdiscussed with her and she is willing to try the protocol for CT scan with contrast with an allergy. Objective Data Objective Data Vital Signs: Vital Signs Temp Pulse Resp BP Pulse Ox O2 Del Method O2 Flow Rate 98.2 F 68 18 160/72 H 94 Nasal Cannula 5 03/20/23 10:12 03/20/23 10:12 03/20/23 10:12 03/20/23 10:12 03/20/23 10:12 03/20/23 10:12 03/20/23 10:12 Oxygen Flow Rate (L/min) 5 Oxygen Delivery Method Nasal Cannula Weight: 236 lb 1.841 oz Body Mass Index (BMI) 40.5 Intake & Output: Intake and Output for Last 24 Hours 03/19/23 03/20/23 03/21/23 03:59 03:59 03:59 Intake Total 342.5 / 342.5 Output Total 1050 / 1050 950 / 950 Balance -1050 / -1050 -607.5 / -607.5 Lab / Micro Data 03/20/23 04:42 03/20/23 04:42 Labs: Laboratory Results - last 24 hr 03/19/23 14:46: WBC 8.3, RBC 5.70 H, Hgb 17.3 H, Hct 57.7 H, MCV 101.2 H, MCH 30.4, MCHC 30.0 L, RDW Std Deviation 53.9 H, RDW Coeff of [place] 14.5, Plt Count 210, MPV 11.9, Immature Gran % (Auto) 0.200, Neut % (Auto) 69.8, Lymph % (Auto) 19.5, [place] % (Auto) 8.1, Eos % (Auto) 1.7, Baso % (Auto) 0.7, Absolute Neuts (auto) 5.8, Absolute Lymphs (auto) 1.62, Nucleated RBC % 0, Sodium Cancelled, Potassium Cancelled, Chloride Cancelled, Carbon Dioxide Cancelled, Anion Gap Cancelled, BUN Cancelled, Creatinine Cancelled, Estim Creat Clear Calc Cancelled, Est GFR (MDRD) Af Amer Cancelled, Est GFR (MDRD) Non-Af Cancelled, BUN/Creatinine Ratio Cancelled, Glucose Cancelled, Calcium Cancelled, Troponin IHigh Sens Cancelled, B-Natriuretic Peptide 56.0 03/19/23 15:11: Sodium 139, Potassium 4.3, Chloride 105, Carbon Dioxide 33.0 H, Anion Gap 1 L, BUN 8, Creatinine 0.78, Estim Creat Clear Calc 43.91, Est GFR (MDRD) Af Amer 94, Est GFR (MDRD) Non-Af 78, BUN/Creatinine Ratio 10.3, Glucose 114 H, Calcium 8.4 L, Troponin I High Sens 8 03/19/23 19:02: APTT 34.4, D-Dimer Quant (PE/DVT) 1.17 H* 03/20/23 04:42: WBC 12.3 H, RBC 5.50 H, Hgb 16.5 H, Hct 55.3 H, MCV 100.5 H, MCH30.0, MCHC 29.8 L, RDW Std Deviation 53.6 H, RDW Coeff of [place] 14.2, Plt Count 214, MPV 11.4, Immature Gran % (Auto) 0.500, Neut % (Auto) 72.8 H, Lymph % (Auto) 16.5 L, [place] % (Auto) 7.9, Eos % (Auto) 1.5, Baso % (Auto) 0.8, Absolute Neuts (auto) 9.0 H, Absolute Lymphs (auto) 2.04, Nucleated RBC % 0, APTT > 200.0H*, Sodium 139, Potassium 3.7, Chloride 101, Carbon Dioxide 36.0 H, Anion Gap 2 L, BUN 8, Creatinine 0.86, Estim Creat Clear Calc 51.06, Est GFR (MDRD) Af Amer 84, Est GFR (MDRD) Non-Af 69, BUN/Creatinine Ratio 9.4 L, Glucose 130 H, Calcium8.3 L, TSH 1.46 Micro: Microbiology 03/19/23 21:10 Mucosa - Nasopharyngeal Respiratory Panel (PCR) - Final 03/19/23 17:15 Nasal Secretion SARS-CoV-2 & FLU Antigen (Rapid) - Final ABG Data ABG results: ABG 03/20/23 04:50 Specimen Type JN Sample Site Not entered O2 % 3.0 VBG pH 7.37 VBG pO2 40 VBG HCO3 35 H VBG Total CO2 37 H VBG O2 Sat (Calc) 71 H VBG Base Excess 10 H POC Mix VBG pCO2 Pt Tmp 60.5 H O2 Delivery Device Cannula Radiography Diagnostic Testing: Radiology Impression Chest X-Ray 03/19/23 15:00 IMPRESSION: Mild degree of increased markings in the right midlung. Early infiltrate should be ruled out. Electronically Signed: Cisco Calderon MD at 15:17 EDT , Chest CT 03/19/23 16:00 IMPRESSION: Bilateral pleural effusions. Electronically Signed: Cipriano Jefferson DO at 16:41 EDT , Physical Exam Narrative General: Alert, Oriented x3, Cooperative, mild to moderate respiratory distress HEENT: Atraumatic, PERRLA, EOMI, Normocephalic Oral: Moist Mucosa Neck: Supple, No JVD Lungs: Diminished, Normal air movement, No rhonchi, wheeze, No rales, intermittent tachypnea, can only do 3 word sentences, some retractions Cardiovascular: Regular rate, Regular Rhythm, Normal S1, Normal S2, No murmurs Abdomen: Soft, Non Tender, Non-Distended, No Hepato-splenomegaly Extremities: No edema, Capillary Refill Less than 3 Seconds Skin: No rashes, No breakdown Musculoskeletal: No Tenderness to Palpation of Joints or Extremities Neurological: Motor Exam 5/5 strength throughout, Sensory exam intact to light touch and pain Psych/Mental Status: Normal Affect, Appropriate Assessment & Plan Assessment/Plan (1) Hypoxia: (2) Nicotine abuse: (3) Essential (primary) hypertension: PLAN: Plan 1. Acute hypoxic respiratory failure unclear etiology/COPD/tobacco abuse -68% on RA on arrival, improved with O2 -Patient has documented history of COPD and uses albuterol at home, will schedule nebs, she did have some wheezing on my exam we will continue with breathing treatments May trial steroids -BNP was within normal limits and troponin also within normal limits, though CT and chest x-ray showed small pleural effusions -We will obtain echocardiogram to evaluate for any abnormalities and ideally pressures as well, lower extremity Doppler is also pending -Suspect there is a chronic component given her elevated hemoglobin and bicarb, will obtain VBG, also would benefit from outpatient sleep apnea evaluation and pulm follow-up -D-dimer was elevated however given the abnormal chest x-ray we will proceed with a CTA and placed on the contrast allergy protocol -COVID and respiratory panels are negative ? Discussed cessation 2. HTN/HLD/hypertensive urgency ? Present with a systolic blood pressure of 203 with no endorgan damage ? Continue with her home blood pressure medications ? We will continue to monitor and make adjustments as necessary 3. Morbid obesity -BMI 51.8 kg/m? -Complicates treatment, prognosis, outcomes -Recommend weight loss and lifestyle changes 4. Possible adrenal incedentaloma -CT queried 1.5cm left adrenal nodule ? Will need further evaluation moving forward DVT: Heparin drip Charges/Coding Visit Charges Inpatient E&M: 01310 Subs Hosp L2 03/20/23 1141 <Electronically signed by Farhad Garza MD> Cosigner Signature (if applicable): CC: ~ Signed [facility] Work Phone: 1(936) 510-206909-14-2023 Progress note Author Jennie Salgado [facility] March 19, 2023 8:43pm Note Date/Time March 19, 2023 8:43pm [facility] Medical Records Department [address] [place] [address] Progress Note - Hospitalist 03/19/232038 MR#: [id number] Acct: [id number] Name: SALLY AYALA Rep #:[id number] : 1950 72 From: Jennie Salagdo MD PCP: Dr. Justin Bolden MD Status:ADM I N Location: [place] [address] Hospitalist Note Elevated ddimer and still unclear cause of her initial significant hypoxia on admission and doctors office, covid negative, ddimer elevated. Pt w/ allrgy to contrast, will get LE duplex, v/q scan, and given lack of explanation for symptoms w/ significant desats w/ movement will treat w/ heparin gtt empiricallywith plan to deescalate if negative 03/19/232042 <Electronically signed by Jennie Salgado MD> Cosigner Signature (if applicable): CC: ~ Signed [facility] Work Phone: 1(504) 982-799409-14-2023 History and physical note Author Jennie [facility] March 19, 2023 6:07pm Note Date/Time March 19, 2023 5:54pm [facility] Medical Records Department [address] [place] [address] H&P Exam - Hospitalist 03/19/231748 MR#: [id number] Acct: [id number] Name: SALLY AYALA Rep #:[id number] : 1950 72 From: Jennie Salgado MD PCP: Dr. Justin Bolden MD Status:ADM I N Location: [place] [address] HPI - General General Date of Admission: 03/19/23 Date of Service: 03/19/23 Chief Complaint: Low O2 HPI Narrative SALLY AYALA, is a 72 F with history reportedly of COPD, hypertension, CAD who presented to [facility] 03/19/2023 due to low oxygen saturation. Reportedly she has had increased shortness of breath on and off forthe past 1 to 2 months and over the past 3 to 4 days has been using her albuterol with increasing frequency. Today she went to her primary care physician's office and was found to have an oxygen saturation of 70% on room airand she was sent to the ED. In the ED she was 68% on room air and was placed on2 L with improvement of sats when she was at rest, SBP 203/121. X-ray showed small pleural effusions and CT confirmed this with no other abnormalities appreciated. She 5 of hydralazine with improvement in her blood pressure. Hospitalist called for admission due to her hypoxia. Patient evaluated bedside and reports she is feeling slightly better than when she walked in, does still note shortness of breath, reports chronic cough with no increase in frequency orsputum production and has had no fevers. Has noticed increased feet swelling over the past few weeks but does not weigh herself, has had some lower back aching as well. Denies any chest pain, no headache or changes in vision. No other complaints at this time. Discussed her reported history of COPD and she said "that is what they told me" and that she is never seen a lung specialist orhad testing for this but does take her albuterol. [facility] Medical History Atherosclerotic heart disease of [place] coronary artery without angina pectoris Bronchitis COPD (chronic obstructive pulmonary disease) Diabetes Essential (primary) hypertension Hyperlipidemia LBBB (left bundle branch block) Nicotine abuse Nonischemic cardiomyopathy Home Medications albuterol sulfate 90 mcg/actuation aerosol inhaler 2 puff inhalation Q4H PRN SHORTNESS OF BREATH/WHEEZING 10/02/16 [History Last Taken Unknown] aspirin 81 mg tablet,delayed release 81 mg PO DAILY HEART HEALTH 10/02/16 [History Last Taken 03/18/23] imipramine HCl 25 mg tablet 25 - 50 mg PO QHS BLADDER CONTROL 10/02/16 [History Last Taken 03/18/23] lisinopril 20 mg tablet 20 mg PO BID BLOOD PRESSURE 10/02/16 [History Last Taken 03/18/23] simvastatin 40 mg tablet 40 mg PO QHS CHOLESTEROL 10/02/16 [History Last Taken 03/18/23] cholecalciferol (vitamin D3) 50 mcg (2,000 unit) capsule 2,000 unit PO DAILY SUPPLEMENT 11/24/17 [History Last Taken 03/18/23] carvedilol 25 mg tablet 25 mg PO BID HEART #180 tabs 09/03/20 [Rx Last Taken 03/18/23] Allergy/AdvReac Type Severity Reaction Status Date / Time Iodinated Contrast Media Allergy Other Verified 10/21/22 13:06 [CONTRASTS] meperidine [From Demerol] Allergy Unknown Verified 10/21/22 13:06 Penicillins [PCN] Allergy Rash Verified 10/21/22 13:06 Family History Mother Hypertension Diabetes Father Cancer Surgical History History of appendectomy History of cataract surgery History of cholecystectomy History of colonoscopy with polypectomy History of left heart catheterization (09/03/11) History of total hip arthroplasty Social History Smoking Status: Current every day smoker tobacco type: cigarettes alcohol intake: current substance use type: does not use ROS ROS Narrative General: Denies fever/chills HENT: Denies headache, denies stuffy nose, denies sore throat EYES: Denies changes in vision Resp: Chronic cough with no change, shortness of breath increasing over the past 1 month Cardiac: Denies chest pain GI: Denies abdominal pain, denies changes in bowel, denies nausea/vomiting : Denies changes in urination Extremity: Some swelling in her legs MSK: Denies weakness Neuro: Denies any numbness/tingling Heme: Denies any bleeding or bruising Skin: Denies rashes Psychiatric: No complaints voiced Vital Signs Vital Signs Vital Signs: 03/19/23 14:15 03/19/23 14:25 03/19/23 15:30 Temperature 98 F Temperature Source Oral Pulse Rate 71 Respiratory Rate 24 H Respiratory Effort Normal Blood Pressure 203/121 H Blood Pressure Mean 148 Pulse Ox 68 Oxygen Delivery Method Room Air Nasal Cannula Nasal Cannula Oxygen Flow Rate (L/min) 2 2 03/19/23 16:49 03/19/23 17:22 Temperature 97.8 F Temperature Source Temporal Pulse Rate 98 75 Respiratory Rate 18 18 Respiratory Effort Blood Pressure 187/87 H 155/100 H Blood Pressure Mean 120 118 Pulse Ox 99 94 Oxygen Delivery Method Room Air Nasal Cannula Oxygen Flow Rate (L/min) 2 Weight Weight: 137 kg Body Mass Index (BMI) 51.8 Physical Exam Narrative General: Alert, oriented, no apparent distress HEENT: Atraumatic, normocephalic Eyes: Anicteric, normal conjunctiva, extraocular movements grossly intact Neck: Supple Respiratory: Diminished bilaterally with slight increase in respiratory effort Cardiovascular: Regular rate and rhythm GI: Soft, nontender, nondistended Extremities: Slight edema in lower extremities without significant pitting Musculoskeletal: Moving all extremities Neuro: No overt focal neurological deficits Skin: No rashes appreciated Psych: Cooperative Results Lab / Micro Data 03/19/23 14:46 03/19/23 15:11 Labs: Laboratory Results - last 24 hr 03/19/23 14:46: WBC 8.3, RBC 5.70 H, Hgb 17.3 H, Hct 57.7 H, MCV 101.2 H, MCH 30.4, MCHC 30.0 L, RDW Std Deviation 53.9 H, RDW Coeff of [place] 14.5, Plt Count 210, MPV 11.9, Immature Gran % (Auto) 0.200, Neut % (Auto) 69.8, Lymph % (Auto) 19.5, [place] % (Auto) 8.1, Eos % (Auto) 1.7, Baso % (Auto) 0.7, Absolute Neuts (auto) 5.8, Absolute Lymphs (auto) 1.62, Nucleated RBC % 0, Sodium Cancelled, Potassium Cancelled, Chloride Cancelled, Carbon Dioxide Cancelled, Anion Gap Cancelled, BUN Cancelled, Creatinine Cancelled, Estim Creat Clear Calc Cancelled, Est GFR (MDRD) Af Amer Cancelled, Est GFR (MDRD) Non-Af Cancelled, BUN/Creatinine Ratio Cancelled, Glucose Cancelled, Calcium Cancelled, Troponin I High Sens Cancelled, B-Natriuretic Peptide 56.0 03/19/23 15:11: Sodium 139, Potassium 4.3, Chloride 105, Carbon Dioxide 33.0 H, Anion Gap 1 L, BUN 8, Creatinine 0.78, Estim Creat Clear Calc 43.91, Est GFR (MDRD) Af Amer 94, Est GFR (MDRD) Non-Af 78, BUN/Creatinine Ratio 10.3, Glucose 114 H, Calcium 8.4 L, Troponin I High Sens 8 Radiology Impression Chest X-Ray 03/19/23 15:00 IMPRESSION: Mild degree of increased markings in the right midlung. Early infiltrate should be ruled out. Electronically Signed: Cisco Calderon MD at 15:17 EDT , Chest CT 03/19/23 16:00 IMPRESSION: Bilateral pleural effusions. Electronically Signed: Cipriano Jefferson DO at 16:41 EDT , Assessment & Plan Assessment/Plan (1) Hypoxia: (2) Nicotine abuse: (3) Essential (primary) hypertension: PLAN: Plan #SOB with hypoxia -68% on RA on arrival, improved with O2 -Patient has documented history of COPD and uses albuterol at home, will schedule nebs, no wheezing and do not feel IV steroids are necessary at this time -BNP was within normal limits and troponin also within normal limits, though CT and chest x-ray showed small pleural effusions -We will obtain echocardiogram to evaluate for any abnormalities and ideally pressures as well -Suspect there is a chronic component given her elevated hemoglobin and bicarb, will obtain VBG, also would benefit from outpatient sleep apnea evaluation and pulm follow-up -Additionally will get D-dimer, do not think the effusions that count for the extent of her hypoxia -We will also get COVID and respiratory panels though this is less likely given her timeline -Incentive spirometer, daily weights, I's and O's -EKG normal sinus rhythm with PVCs and heart rate of 71 #Hypertensive urgency -SBP 203/121 on arrival but no evidence of endorgan damage -Received hydralazine as needed -We will give patient her lisinopril and carvedilol and continue the as needed hydralazine, reports at home she does not run even close to this #Tobacco use -Advise cessation -Patient agreeable to nicotine replacement #Morbid obesity -BMI 51.8 kg/m? -Complicates treatment, prognosis, outcomes -Recommend weight loss and lifestyle changes #Possible adrenal incedentaloma -CT queried 1.5cm left adrenal nodule- will need further evaluation moving forward #DVT ppx: Lovenox subcu Jennie Salgado MD Charges/Coding Visit Charges Inpatient E&M: 83551 Init Hosp L2 03/19/23 1807 <Electronically signed by Jennie Salgado MD> Cosigner Signature (if applicable): CC: Dr. Jennie Salgado MD; Dr. Justin Bolden MD~ Signed [facility] Work Phone: 1(965) 434-365609-14-2023 Discharge summary Author Harjit Ivory [facility] March 19, 2023 5:54pm Note Date/Time March 19, 2023 2:44pm [facility] Medical Records Department [address] [place] [address] Emergency Department Summary 03/19/23 MR#: [id number] Acct: [id number] Name: SALLY AYALA Rep #:[id number] : 1950 72 From: Harjit Ivory DO PCP: Dr. Justin Bolden MD Status:ADM I N Location: [place] [address] HPI History of Present Illness Chief Complaint: Shortness of Breath Narrative Narrative: 72-year-old female presents with dyspnea. She has noticed it over the last couple of months but really over the last couple of weeks she has noticed even worse. She says she states she is gaining weight but she does not on a scale. She does have some ankle edema and left foot edema which is noticed over the last couple weeks as well. She states that currently she thinks she could walk from her room to the triage station, however couple of months ago she could walkmuch further without a difficulty. She denies any chest pain. No fevers or chills. Patient has history of COPD and is currently weaning down. She states he has not had any cigarettes today and is really only of smoking a couple a day. She states she is going to stop now. She does not feel like she is wheezing. [facility] Medical History Atherosclerotic heart disease of [place] coronary artery without angina pectoris Bronchitis COPD (chronic obstructive pulmonary disease) Diabetes Essential (primary) hypertension Hyperlipidemia LBBB (left bundle branch block) Nicotine abuse Nonischemic cardiomyopathy Home Medications albuterol sulfate 90 mcg/actuation aerosol inhaler 2 puff inhalation Q4H PRN SHORTNESS OF BREATH/WHEEZING 10/02/16 [History Last Taken Unknown] aspirin 81 mg tablet,delayed release 81 mg PO DAILY HEART HEALTH 10/02/16 [History Last Taken 03/18/23] imipramine HCl 25 mg tablet 25 - 50 mg PO QHS BLADDER CONTROL 10/02/16 [History Last Taken 03/18/23] lisinopril 20 mg tablet 20 mg PO BID BLOOD PRESSURE 10/02/16 [History Last Taken 03/18/23] simvastatin 40 mg tablet 40 mg PO QHS CHOLESTEROL 10/02/16 [History Last Taken 03/18/23] cholecalciferol (vitamin D3) 50 mcg (2,000 unit) capsule 2,000 unit PO DAILY SUPPLEMENT 11/24/17 [History Last Taken 03/18/23] carvedilol 25 mg tablet 25 mg PO BID HEART #180 tabs 09/03/20 [Rx Last Taken 03/18/23] Allergy/AdvReac Type Severity Reaction Status Date / Time Iodinated Contrast Media Allergy Other Verified 10/21/22 13:06 [CONTRASTS] meperidine [From Demerol] Allergy Unknown Verified 10/21/22 13:06 Penicillins [PCN] Allergy Rash Verified 10/21/22 13:06 Family History Mother Hypertension Diabetes Father Cancer Surgical History History of appendectomy History of cataract surgery History of cholecystectomy History of colonoscopy with polypectomy History of left heart catheterization (09/03/11) History of total hip arthroplasty Social History Smoking Status: Current every day smoker tobacco type: cigarettes alcohol intake: current substance use type: does not use ROS ROS ED Review of Systems ROS Unobtainable: Denies due to encephalopathy Constitutional Constitutional ED: Denies chills or fever(s) Eyes Eyes: Denies change in vision or diplopia ENT ENT ED: Denies rhinorrhea or sore throat Cardiovascular Cardiovascular: Denies chest pain or palpitations Respiratory/Chest Respiratory/Chest: Reports dyspnea and dyspnea on exertion Gastrointestinal Gastrointestinal: Denies abdominal pain, melena or nausea Genitourinary Genitourinary ED: Denies dysuria or hematuria Musculoskeletal Musculoskeletal: Denies arthralgias Integumentary Denies Abrasions Neurologic Neurologic: Denies headache(s) or paresthesias Psychiatric Psychiatric: Denies anxiety or depression EXAM Physical Exam Const Vital Signs: 03/19/23 14:15 03/19/23 14:25 03/19/23 15:30 Temperature 98 F Temperature Source Oral Pulse Rate 71 Respiratory Rate 24 H Respiratory Effort Normal Blood Pressure 203/121 H Blood Pressure Mean 148 Pulse Ox 68 Oxygen Delivery Method Room Air Nasal Cannula Nasal Cannula Oxygen Flow Rate (L/min) 2 2 03/19/23 16:49 03/19/23 17:22 Temperature 97.8 F Temperature Source Temporal Pulse Rate 98 75 Respiratory Rate 18 18 Respiratory Effort Blood Pressure 187/87 H 155/100 H Blood Pressure Mean 120 118 Pulse Ox 99 94 Oxygen Delivery Method Room Air Nasal Cannula Oxygen Flow Rate (L/min) 2 Positive well nourished HEENT Reports moist mucous membranes and dry mucous membranes Mouth ED: Yes dry mucous membranes Mouth: dry mucous membranes Eyes PERRL and EOMs intact bilaterally Neck no lymphadenopathy and supple Resp Auscultation: diminished lung sounds bilateral throughout Cardio regular rate and regular rhythm GI non-tender Back/Spine no CVA tenderness Extremity General Extremety ED: Yes edema and tenderness General Extremity: edema Neuro oriented x3 and CN's II-XII intact bilaterally Sensorium / Orientation: alert Psych mental status grossly normal Skin no wounds MDM MDM MDM Narrative Medical decision making narrative: 72-year-old female presenting with hypoxia. Patient denies any chest pain. This has been ongoing problem for a couple of months but worse over the last couple of weeks. She has history of COPD but does not feel like she is wheezing and I do not hear any wheezing on exam. Patient noted to be hypertensive. Differential includes CHF, COPD exacerbation, pneumonia, dehydration, electrolyte abnormalities, anemia, hypertension. Given 5 mg of hydralazine elevated blood pressure of 203/85. Will reevaluate. Patient states her blood pressure is never this high. Was obtained to assess white blood cell count, hemoglobin, platelets. BMP to assess renal function, electrolytes, glucose. High-sensitivity troponin, EKG to assess for ischemia and dysrhythmia. Chest x-ray to rule out pneumonia or CHF. BNP to assess for CHF. CBC shows normal white blood cell count 8.3. Hemoglobin slightly hemoconcentrated at 17.3. Recheck of blood pressure not under 155/100. Renal function and electrolytes unremarkable. High-sensitivity troponin is 8. BNP 56 and therefore within normal limits. Chest x-ray on my interpretation concerning for right-sided infiltrate. I did obtain a noncontrast CT scan to differentiate this and shows bilateral pleural effusions. It is unclear the etiology has a BNP is normal. Patient has no white count either. She is hypoxic into the 60s. And will need to be admitted. Discussed with hospitalist for admission. Impression: 1. Hypoxic respiratory failure 2. CHF 3. Dyspnea Lab Data Attestation: I reviewed the patient's lab results. Labs: Laboratory Results - last 24 hr 03/19/23 03/19/23 14:46 15:11 WBC 8.3 RBC 5.70 H Hgb 17.3 H Hct 57.7 H MCV 101.2 H MCH 30.4 MCHC 30.0 L RDW Std Deviation 53.9 H RDW Coeff of [place] 14.5 Plt Count 210 MPV 11.9 Immature Gran % (Auto) 0.200 Neut % (Auto) 69.8 Lymph % (Auto) 19.5 [place] % (Auto) 8.1 Eos % (Auto) 1.7 Baso % (Auto) 0.7 Absolute Neuts (auto) 5.8 Absolute Lymphs (auto) 1.62 Nucleated RBC % 0 Sodium Cancelled 139 Potassium Cancelled 4.3 Chloride Cancelled 105 Carbon Dioxide Cancelled 33.0 H Anion Gap Cancelled 1 L BUN Cancelled 8 Creatinine Cancelled 0.78 Estim Creat Clear Calc Cancelled 43.91 Est GFR (MDRD) Af Amer Cancelled 94 Est GFR (MDRD) Non-Af Cancelled 78 BUN/Creatinine Ratio Cancelled 10.3 Glucose Cancelled 114 H Calcium Cancelled 8.4 L Troponin I High Sens Cancelled 8 B-Natriuretic Peptide 56.0 Radiography Diagnostic Testing: Clinical Impression(s) from Imaging Studies Chest X-Ray 03/19/23 15:00 IMPRESSION: Mild degree of increased markings in the right midlung. Early infiltrate should be ruled out. Electronically Signed: Cisco Calderon MD at 15:17 EDT , Chest CT 03/19/23 16:00 IMPRESSION: Bilateral pleural effusions. Electronically Signed: Cipriano Jefferson DO at 16:41 EDT , Discharge Plan Triage Chief Complaint: Shortness of Breath ED Provider: Harjit Ivory Dx/Rx/DC Orders Primary Care Provider: Justin Bolden What to do if you have Problems For any increased pain, shortness of breath, bleeding, nausea or vomiting, chest pain, or any unexpected problems, contact your Primary Care Provider. Call [facility] ([phone]) or report to the closest Emergency Room. Call 911 if necessary. 03/19/23 175 <Electronically signed by Harjit Ivory DO> Cosigner Signature (if applicable): CC: Dr. Justin Bolden MD ~ Signed [facility] Work Phone: [phone] Discharge summary Author Harjit Ivory [facility] March 19, 2023 5:54pm Note Date/Time March 19, 2023 2:44pm [facility] Medical Records Department [address] [place] [address] Emergency Department Summary 03/19/23 MR#: [id number] Acct: [id number] Name: SALLY AYALA Rep #:[id number] : 1950 72 From: Harjit Ivory DO PCP: Dr. Justin Bolden MD Status:ADM I N Location: [place] [address] HPI History of Present Illness Chief Complaint: Shortness of Breath Narrative Narrative: 72-year-old female presents with dyspnea. She has noticed it over the last couple of months but really over the last couple of weeks she has noticed even worse. She says she states she is gaining weight but she does not on a scale. She does have some ankle edema and left foot edema which is noticed over the last couple weeks as well. She states that currently she thinks she could walk from her room to the triage station, however couple of months ago she could walkmuch further without a difficulty. She denies any chest pain. No fevers or chills. Patient has history of COPD and is currently weaning down. She states he has not had any cigarettes today and is really only of smoking a couple a day. She states she is going to stop now. She does not feel like she is wheezing. [facility] Medical History Atherosclerotic heart disease of [place] coronary artery without angina pectoris Bronchitis COPD (chronic obstructive pulmonary disease) Diabetes Essential (primary) hypertension Hyperlipidemia LBBB (left bundle branch block) Nicotine abuse Nonischemic cardiomyopathy Home Medications albuterol sulfate 90 mcg/actuation aerosol inhaler 2 puff inhalation Q4H PRN SHORTNESS OF BREATH/WHEEZING 10/02/16 [History Last Taken Unknown] aspirin 81 mg tablet,delayed release 81 mg PO DAILY HEART HEALTH 10/02/16 [History Last Taken 03/18/23] imipramine HCl 25 mg tablet 25 - 50 mg PO QHS BLADDER CONTROL 10/02/16 [History Last Taken 03/18/23] lisinopril 20 mg tablet 20 mg PO BID BLOOD PRESSURE 10/02/16 [History Last Taken 03/18/23] simvastatin 40 mg tablet 40 mg PO QHS CHOLESTEROL 10/02/16 [History Last Taken 03/18/23] cholecalciferol (vitamin D3) 50 mcg (2,000 unit) capsule 2,000 unit PO DAILY SUPPLEMENT 11/24/17 [History Last Taken 03/18/23] carvedilol 25 mg tablet 25 mg PO BID HEART #180 tabs 09/03/20 [Rx Last Taken 03/18/23] Allergy/AdvReac Type Severity Reaction Status Date / Time Iodinated Contrast Media Allergy Other Verified 10/21/22 13:06 [CONTRASTS] meperidine [From Demerol] Allergy Unknown Verified 10/21/22 13:06 Penicillins [PCN] Allergy Rash Verified 10/21/22 13:06 Family History Mother Hypertension Diabetes Father Cancer Surgical History History of appendectomy History of cataract surgery History of cholecystectomy History of colonoscopy with polypectomy History of left heart catheterization (09/03/11) History of total hip arthroplasty Social History Smoking Status: Current every day smoker tobacco type: cigarettes alcohol intake: current substance use type: does not use ROS ROS ED Review of Systems ROS Unobtainable: Denies due to encephalopathy Constitutional Constitutional ED: Denies chills or fever(s) Eyes Eyes: Denies change in vision or diplopia ENT ENT ED: Denies rhinorrhea or sore throat Cardiovascular Cardiovascular: Denies chest pain or palpitations Respiratory/Chest Respiratory/Chest: Reports dyspnea and dyspnea on exertion Gastrointestinal Gastrointestinal: Denies abdominal pain, melena or nausea Genitourinary Genitourinary ED: Denies dysuria or hematuria Musculoskeletal Musculoskeletal: Denies arthralgias Integumentary Denies Abrasions Neurologic Neurologic: Denies headache(s) or paresthesias Psychiatric Psychiatric: Denies anxiety or depression EXAM Physical Exam Const Vital Signs: 03/19/23 14:15 03/19/23 14:25 03/19/23 15:30 Temperature 98 F Temperature Source Oral Pulse Rate 71 Respiratory Rate 24 H Respiratory Effort Normal Blood Pressure 203/121 H Blood Pressure Mean 148 Pulse Ox 68 Oxygen Delivery Method Room Air Nasal Cannula Nasal Cannula Oxygen Flow Rate (L/min) 2 2 03/19/23 16:49 03/19/23 17:22 Temperature 97.8 F Temperature Source Temporal Pulse Rate 98 75 Respiratory Rate 18 18 Respiratory Effort Blood Pressure 187/87 H 155/100 H Blood Pressure Mean 120 118 Pulse Ox 99 94 Oxygen Delivery Method Room Air Nasal Cannula Oxygen Flow Rate (L/min) 2 Positive well nourished HEENT Reports moist mucous membranes and dry mucous membranes Mouth ED: Yes dry mucous membranes Mouth: dry mucous membranes Eyes PERRL and EOMs intact bilaterally Neck no lymphadenopathy and supple Resp Auscultation: diminished lung sounds bilateral throughout Cardio regular rate and regular rhythm GI non-tender Back/Spine no CVA tenderness Extremity General Extremety ED: Yes edema and tenderness General Extremity: edema Neuro oriented x3 and CN's II-XII intact bilaterally Sensorium / Orientation: alert Psych mental status grossly normal Skin no wounds MDM MDM MDM Narrative Medical decision making narrative: 72-year-old female presenting with hypoxia. Patient denies any chest pain. This has been ongoing problem for a couple of months but worse over the last couple of weeks. She has history of COPD but does not feel like she is wheezing and I do not hear any wheezing on exam. Patient noted to be hypertensive. Differential includes CHF, COPD exacerbation, pneumonia, dehydration, electrolyte abnormalities, anemia, hypertension. Given 5 mg of hydralazine elevated blood pressure of 203/85. Will reevaluate. Patient states her blood pressure is never this high. Was obtained to assess white blood cell count, hemoglobin, platelets. BMP to assess renal function, electrolytes, glucose. High-sensitivity troponin, EKG to assess for ischemia and dysrhythmia. Chest x-ray to rule out pneumonia or CHF. BNP to assess for CHF. CBC shows normal white blood cell count 8.3. Hemoglobin slightly hemoconcentrated at 17.3. Recheck of blood pressure not under 155/100. Renal function and electrolytes unremarkable. High-sensitivity troponin is 8. BNP 56 and therefore within normal limits. Chest x-ray on my interpretation concerning for right-sided infiltrate. I did obtain a noncontrast CT scan to differentiate this and shows bilateral pleural effusions. It is unclear the etiology has a BNP is normal. Patient has no white count either. She is hypoxic into the 60s. And will need to be admitted. Discussed with hospitalist for admission. Impression: 1. Hypoxic respiratory failure 2. CHF 3. Dyspnea Lab Data Attestation: I reviewed the patient's lab results. Labs: Laboratory Results - last 24 hr 03/19/23 03/19/23 14:46 15:11 WBC 8.3 RBC 5.70 H Hgb 17.3 H Hct 57.7 H MCV 101.2 H MCH 30.4 MCHC 30.0 L RDW Std Deviation 53.9 H RDW Coeff of Ju[place]ino 14.5 Plt Count 210 MPV 11.9 Immature Gran % (Auto) 0.200 Neut % (Auto) 69.8 Lymph % (Auto) 19.5 [place] % (Auto) 8.1 Eos % (Auto) 1.7 Baso % (Auto) 0.7 Absolute Neuts (auto) 5.8 Absolute Lymphs (auto) 1.62 Nucleated RBC % 0 Sodium Cancelled 139 Potassium Cancelled 4.3 Chloride Cancelled 105 Carbon Dioxide Cancelled 33.0 H Anion Gap Cancelled 1 L BUN Cancelled 8 Creatinine Cancelled 0.78 Estim Creat Clear Calc Cancelled 43.91 Est GFR (MDRD) Af Amer Cancelled 94 Est GFR (MDRD) Non-Af Cancelled 78 BUN/Creatinine Ratio Cancelled 10.3 Glucose Cancelled 114 H Calcium Cancelled 8.4 L Troponin I High Sens Cancelled 8 B-Natriuretic Peptide 56.0 Radiography Diagnostic Testing: Clinical Impression(s) from Imaging Studies Chest X-Ray 03/19/23 15:00 IMPRESSION: Mild degree of increased markings in the right midlung. Early infiltrate should be ruled out. Electronically Signed: Cisco Calderon MD at 15:17 EDT , Chest CT 03/19/23 16:00 IMPRESSION: Bilateral pleural effusions. Electronically Signed: Cipriano Jefferson DO at 16:41 EDT , Discharge Plan Triage Chief Complaint: Shortness of Breath ED Provider: Harjit Ivory Dx/Rx/DC Orders Primary Care Provider: Justin Bolden What to do if you have Problems For any increased pain, shortness of breath, bleeding, nausea or vomiting, chest pain, or any unexpected problems, contact your Primary Care Provider. Call [facility] ([phone]) or report to the closest Emergency Room. Call 911 if necessary. 03/19/23 175 <Electronically signed by Harjit Ivory DO> Cosigner Signature (if applicable): CC: Dr. Justin Bolden MD ~ Signed [facility] Work Phone: Consult note Author Caitlin Uribe [facility] October 14, 2023 2:30pm Note Date/Time October 14, 2023 2:3 0pm [facility] Medical Records Department [address] [address] Counseling Note - Pharmacy 10/14/23 1428 MR#: [id number] Acct: [id number] Name: SALLY AYALA Rep #:[id number] : 1950 73 From: Caitlin Uribe PCP: Dr. Justin Bolden MD Status:ADM I NO Y Location: [place] [address] Pharmacy [facility] Service has performed discharge medication reconciliation and counseling for this patient. 1. AMLODIPINE 10MG PO DAILY 2. CEPHALEXIN 500MG PO BID X 5 DAYS 3. METFORMIN 500MG PO BIDCM The patient's discharge medication list was reviewed for discrepancies and discrepancies were resolved. The patient was counseled on the following discharge medications and changes in medications for homegoing were reviewed. The Reason for Use, instructions for use, and potential side effects were reviewed for all new medications. The patient's questions regarding all of their medications were answered. The patient was able to verbally demonstrate an understanding of their dischargemedications. Medications at Discharge Home Medications albuterol sulfate 90 mcg/actuation aerosol inhaler 2 puff inhalation Q4H PRN SHORTNESS OF BREATH/WHEEZING 10/02/16 aspirin 81 mg tablet,delayed release 81 mg PO DAILY HEART HEALTH 10/02/16 imipramine HCl 25 mg tablet 25 - 50 mg PO QHS BLADDER CONTROL 10/02/16 simvastatin 40 mg tablet 40 mg PO QHS CHOLESTEROL 10/02/16 cholecalciferol (vitamin D3) 50 mcg (2,000 unit) capsule 2,000 unit PO DAILY SUPPLEMENT 11/24/17 ipratropium 0.5 mg-albuterol 3 mg (2.5 mg base)/3 mL nebulization soln 3 ml inhalation Q6H breathing #180 mL 09/03/23 Nebulizer machine #1 ea 09/15/23 bupropion HCl 300 mg 24 hr tablet, extended release 300 mg PO DAILY mental health 10/12/23 carvedilol 25 mg tablet 25 mg PO Q12H HEART 10/12/23 lisinopril 40 mg tablet 40 mg PO DAILY blood pressure 10/12/23 amlodipine 10 mg tablet 10 mg PO DAILY #30 tabs 10/14/23 cephalexin 500 mg capsule 500 mg PO BID #10 caps 10/14/23 metformin 500 mg tablet 500 mg PO BIDCM #60 tabs 10/14/23 10/14/23 1430 <Electronically signed by Caitlin Uribe> Date _ Caitlin Rivera Signature (if applicable): Date CC: ~ Signed [facility] Work Phone: Evaluation note* Diagnosis Onset Date Resolution Status 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 Essential (primary) hypertension chronic Hyperlipidemia chronic LBBB (left bundle branch block) chronic Nonischemic cardiomyopathy r esolved [facility] Work Phone: Evaluation note* Diagnosis Onset Date Resolution Status Hypoxia acute Essential (primary) hypertension chronic Nicotine abuse [facility] Work Phone: Evaluation note* Diagnosis Onset Date Resolution Status Hypoxia acute COPD (chronic obstructive pulmonary disease) chronic Essential (primary) hypertension chronic Nicotine abuse [facility] Work Phone: Evaluation note* Diagnosis Onset Date Resolution Status COPD (chronic obstructive pulmonary disease) chronic Essential (primary) hypertension chronic Hypoxia chronic COPD (chronic obstructive pulmonary disease) chronic Hypoxia chronic Obesity chronic Sleep apnea [facility] Work Phone: Evaluation note* Diagnosis Onset Date Resolution Status 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 Essential (primary) hypertension chronic Hyperlipidemia chronic LBBB (left bundle branch block) chronic Nonischemic cardiomyopathy r esolved COPD (chronic obstructive pulmonary disease) chronic Hypoxia chronic Obesity [facility] Work Phone: Evaluation note* Diagnosis Onset Date Resolution Status 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 Essential (primary) hypertension chronic Hyperlipidemia chronic LBBB (left bundle branch block) chronic Nonischemic cardiomyopathy r esolved COPD (chronic obstructive pulmonary disease) chronic Hypoxia chronic Obesity chronic Abrasion, multiple sites acu te Disequilibrium acute Generalized weakness acute Multiple falls acute [facility] Work Phone: Evaluation note* Diagnosis Onset Date Resolution Status 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 Essential (primary) hypertension chronic Hyperlipidemia chronic LBBB (left bundle branch block) chronic Nonischemic cardiomyopathy r esolved COPD (chronic obstructive pulmonary disease) chronic Hypoxia chronic Obesity chronic Abrasion, multiple sites acu te Disequilibrium acute Generalized weakness acute Hyperglycemia acute Leukocytosis acute Multiple falls acute [facility] Work Phone: History and physical note Author Jennie Salgado [facility] March 19, 2023 6:07pm Note Date/Time March 19, 2023 5:54pm [facility] Medical Records Department [address] [place] [address] H&P Exam - Hospitalist 03/19/23 1749 MR#: [id number] Acct: [id number] Name: SALLY AYALA Rep #:[id number] : 1950 72 From: Jennie Salgado MD PCP: Dr. Justin Bolden MD Status:ADM I N Location: [place] [address]- HPI - General General Date of Admission: 03/19/23 Date of Service: 03/19/23 Chief Complaint: Low O2 HPI Narrative SALLY AYALA, is a 72 F with history reportedly of COPD, hypertension, CAD who presented to [facility] 03/19/2023 due to low oxygen saturation. Reportedly she has had increased shortness of breath on and off forthe past 1 to 2 months and over the past 3 to 4 days has been using her albuterol with increasing frequency. Today she went to her primary care physician's office and was found to have an oxygen saturation of 70% on room airand she was sent to the ED. In the ED she was 68% on room air and was placed on2 L with improvement of sats when she was at rest, SBP 203/121. X-ray showed small pleural effusions and CT confirmed this with no other abnormalities appreciated. She 5 of hydralazine with improvement in her blood pressure. Hospitalist called for admission due to her hypoxia. Patient evaluated bedside and reports she is feeling slightly better than when she walked in, does still note shortness of breath, reports chronic cough with no increase in frequency orsputum production and has had no fevers. Has noticed increased feet swelling over the past few weeks but does not weigh herself, has had some lower back aching as well. Denies any chest pain, no headache or changes in vision. No other complaints at this time. Discussed her reported history of COPD and she said "that is what they told me" and that she is never seen a lung specialist orhad testing for this but does take her albuterol. [facility] Medical History Atherosclerotic heart disease of [place] coronary artery without angina pectoris Bronchitis COPD (chronic obstructive pulmonary disease) Diabetes Essential (primary) hypertension Hyperlipidemia LBBB (left bundle branch block) Nicotine abuse Nonischemic cardiomyopathy Home Medications albuterol sulfate 90 mcg/actuation aerosol inhaler 2 puff inhalation Q4H PRN SHORTNESS OF BREATH/WHEEZING 10/02/16 [History Last Taken Unknown] aspirin 81 mg tablet,delayed release 81 mg PO DAILY HEART HEALTH 10/02/16 [History Last Taken 03/18/23] imipramine HCl 25 mg tablet 25 - 50 mg PO QHS BLADDER CONTROL 10/02/16 [History Last Taken 03/18/23] lisinopril 20 mg tablet 20 mg PO BID BLOOD PRESSURE 10/02/16 [History Last Taken 03/18/23] simvastatin 40 mg tablet 40 mg PO QHS CHOLESTEROL 10/02/16 [History Last Taken 03/18/23] cholecalciferol (vitamin D3) 50 mcg (2,000 unit) capsule 2,000 unit PO DAILY SUPPLEMENT 11/24/17 [History Last Taken 03/18/23] carvedilol 25 mg tablet 25 mg PO BID HEART #180 tabs 09/03/20 [Rx Last Taken 03/18/23] Allergy/AdvReac Type Severity Reaction Status Date / Time Iodinated Contrast Media Allergy Other Verified 10/21/22 13:06 [CONTRASTS] meperidine [From Demerol] Allergy Unknown Verified 10/21/22 13:06 Penicillins [PCN] Allergy Rash Verified 10/21/22 13:06 Family History Mother Hypertension Diabetes Father Cancer Surgical History History of appendectomy History of cataract surgery History of cholecystectomy History of colonoscopy with polypectomy History of left heart catheterization (09/03/11) History of total hip arthroplasty Social History Smoking Status: Current every day smoker tobacco type: cigarettes alcohol intake: current substance use type: does not use ROS ROS Narrative General: Denies fever/chills HENT: Denies headache, denies stuffy nose, denies sore throat EYES: Denies changes in vision Resp: Chronic cough with no change, shortness of breath increasing over the past 1 month Cardiac: Denies chest pain GI: Denies abdominal pain, denies changes in bowel, denies nausea/vomiting : Denies changes in urination Extremity: Some swelling in her legs MSK: Denies weakness Neuro: Denies any numbness/tingling Heme: Denies any bleeding or bruising Skin: Denies rashes Psychiatric: No complaints voiced Vital Signs Vital Signs Vital Signs: 03/19/23 14:15 03/19/23 14:25 03/19/23 15:30 Temperature 98 F Temperature Source Oral Pulse Rate 71 Respiratory Rate 24 H Respiratory Effort Normal Blood Pressure 203/121 H Blood Pressure Mean 148 Pulse Ox 68 Oxygen Delivery Method Room Air Nasal Cannula Nasal Cannula Oxygen Flow Rate (L/min) 2 2 03/19/23 16:49 03/19/23 17:22 Temperature 97.8 F Temperature Source Temporal Pulse Rate 98 75 Respiratory Rate 18 18 Respiratory Effort Blood Pressure 187/87 H 155/100 H Blood Pressure Mean 120 118 Pulse Ox 99 94 Oxygen Delivery Method Room Air Nasal Cannula Oxygen Flow Rate (L/min) 2 Weight Weight: 137 kg Body Mass Index (BMI) 51.8 Physical Exam Narrative General: Alert, oriented, no apparent distress HEENT: Atraumatic, normocephalic Eyes: Anicteric, normal conjunctiva, extraocular movements grossly intact Neck: Supple Respiratory: Diminished bilaterally with slight increase in respiratory effort Cardiovascular: Regular rate and rhythm GI: Soft, nontender, nondistended Extremities: Slight edema in lower extremities without significant pitting Musculoskeletal: Moving all extremities Neuro: No overt focal neurological deficits Skin: No rashes appreciated Psych: Cooperative Results Lab / Micro Data 03/19/23 14:46 03/19/23 15:11 Labs: Laboratory Results - last 24 hr 03/19/23 14:46: WBC 8.3, RBC 5.70 H, Hgb 17.3 H, Hct 57.7 H, MCV 101.2 H, MCH 30.4, MCHC 30.0 L, RDW Std Deviation 53.9 H, RDW Coeff of [place] 14.5, Plt Count 210, MPV 11.9, Immature Gran % (Auto) 0.200, Neut % (Auto) 69.8, Lymph % (Auto) 19.5, [place] % (Auto) 8.1, Eos % (Auto) 1.7, Baso % (Auto) 0.7, Absolute Neuts (auto) 5.8, Absolute Lymphs (auto) 1.62, Nucleated RBC % 0, Sodium Cancelled, Potassium Cancelled, Chloride Cancelled, Carbon Dioxide Cancelled, Anion Gap Cancelled, BUN Cancelled, Creatinine Cancelled, Estim Creat Clear Calc Cancelled, Est GFR (MDRD) Af Amer Cancelled, Est GFR (MDRD) Non-Af Cancelled, BUN/Creatinine Ratio Cancelled, Glucose Cancelled, Calcium Cancelled, Troponin I High Sens Cancelled, B-Natriuretic Peptide 56.0 03/19/23 15:11: Sodium 139, Potassium 4.3, Chloride 105, Carbon Dioxide 33.0 H, Anion Gap 1 L, BUN 8, Creatinine 0.78, Estim Creat Clear Calc 43.91, Est GFR (MDRD) Af Amer 94, Est GFR (MDRD) Non-Af 78, BUN/Creatinine Ratio 10.3, Glucose 114 H, Calcium 8.4 L, Troponin I High Sens 8 Radiology Impression Chest X-Ray 03/19/23 15:00 IMPRESSION: Mild degree of increased markings in the right midlung. Early infiltrate should be ruled out. Electronically Signed: Cisco Calderon MD at 15:17 EDT , Chest CT 03/19/23 16:00 IMPRESSION: Bilateral pleural effusions. Electronically Signed: Cipriano Jefferson DO at 16:41 EDT , Assessment & Plan Assessment/Plan (1) Hypoxia: (2) Nicotine abuse: (3) Essential (primary) hypertension: PLAN: Plan #SOB with hypoxia -68% on RA on arrival, improved with O2 -Patient has documented history of COPD and uses albuterol at home, will schedule nebs, no wheezing and do not feel IV steroids are necessary at this time -BNP was within normal limits and troponin also within normal limits, though CT and chest x-ray showed small pleural effusions -We will obtain echocardiogram to evaluate for any abnormalities and ideally pressures as well -Suspect there is a chronic component given her elevated hemoglobin and bicarb, will obtain VBG, also would benefit from outpatient sleep apnea evaluation and pulm follow-up -Additionally will get D-dimer, do not think the effusions that count for the extent of her hypoxia -We will also get COVID and respiratory panels though this is less likely given her timeline -Incentive spirometer, daily weights, I's and O's -EKG normal sinus rhythm with PVCs and heart rate of 71 #Hypertensive urgency -SBP 203/121 on arrival but no evidence of endorgan damage -Received hydralazine as needed -We will give patient her lisinopril and carvedilol and continue the as needed hydralazine, reports at home she does not run even close to this #Tobacco use -Advise cessation -Patient agreeable to nicotine replacement #Morbid obesity -BMI 51.8 kg/m? -Complicates treatment, prognosis, outcomes -Recommend weight loss and lifestyle changes #Possible adrenal incedentaloma -CT queried 1.5cm left adrenal nodule- will need further evaluation moving forward #DVT ppx: Lovenox subcu Jennie Salgado MD Charges/Coding Visit Charges Inpatient E&M: 81506 Init Hosp L2 03/19/237 <Electronically signed by Jennie Salgado MD> Cosigner Signature (if applicable): CC: Dr. Jennie Salgado MD; Dr. Justin Bolden MD~ Signed [facility] Work Phone: History and physical note Author Chantelle Chavarria [facility] October 12, 2023 5:49am Note Date/Time October 12, 2023 5:33 am [facility] Medical Records Department [address] [place] [address] H&P Exam - Hospitalist 04/08/24 0522 MR#: [id number] Acct: [id number] Name: SALLY AYALA Rep #:[id number] : 1950 73 From: Chantelle Chavarria MD PCP: Dr. Justin Bolden MD Status:ADM I NO Location: [place] [address] HPI - General General Date of Admission: 10/12/23 Date of Service: 10/12/23 Chief Complaint: LH, Dizziness, Falls. HPI Narrative The patient is a 73 y/o F w/ PMHx: JONO using oxygen qHS only, CKD possible stageIII unclear subtype, Morbid Obesity, HTN, HLD, Chronic COPD w/ Chronic Hypoxic Respiratory Failure (2-3L NC), Former tobacco use, Nonobstructive CAD/Nonischemic cardiomyopathy who presents to the [facility] ED on 10/12/23 with historyof 3 days of progressively worsening fatigue, malaise, dizziness and frequent falls with no recent fevers or chills reporting that she has been losing her balance and occasionally falling backwards with no head trauma or loss of consciousness with mildly increased lower extremity swelling above her baseline and reports that she recently started new medications including bupropion to assist in decreasing her appetite but unfortunately upon evening prior to ED presentation following a fall she could not get up prompting EMS call and transition to the ED given severe debility. Patient has difficulty describing the symptoms prior to falls but denies any specific overt room spinning sensation. From discussion it does seem may be to be more consistent with lightheadedness and dizziness and gait instability. Workup in the ED included T98.5, heart 74, BP 142/54, respiratory rate 20, 85% on room air with improvement to 96 on 3 L nasal cannula, CBC with WBC 18.1, hemoglobin 12.6, MCV 101.6, platelet 159 with left shift, BMP with BUN/creatinine 16/1.14, GFR 50, glucose 247, EKG was sinus rhythm with no acute evidence of ischemia, CT of the brain with no acute intracranial finding, chest x-ray with no acute cardiopulmonary finding, urinalysis requested and pending upon requested evaluation of patient. FORMERLY [facility] Medical History Atherosclerotic heart disease of [place] coronary artery without angina pectoris Bronchitis Chronic hypoxic respiratory failure, on home oxygen therapy CKD (chronic kidney disease), stage III COPD (chronic obstructive pulmonary disease) Diabetes Essential (primary) hypertension Hyperlipidemia LBBB (left bundle branch block) Morbid obesity Nicotine abuse Nonischemic cardiomyopathy Sleep apnea Home Medications albuterol sulfate 90 mcg/actuation aerosol inhaler 2 puff inhalation Q4H PRN SHORTNESS OF BREATH/WHEEZING 10/02/16 [History Last Taken Unknown] aspirin 81 mg tablet,delayed release 81 mg PO DAILY HEART HEALTH 10/02/16 [History Last Taken 03/18/23] imipramine HCl 25 mg tablet 25 - 50 mg PO QHS BLADDER CONTROL 10/02/16 [History Last Taken 03/18/23] simvastatin 40 mg tablet 40 mg PO QHS CHOLESTEROL 10/02/16 [History Last Taken 03/18/23] cholecalciferol (vitamin D3) 50 mcg (2,000 unit) capsule 2,000 unit PO DAILY SUPPLEMENT 11/24/17 [History Last Taken 03/18/23] carvedilol 25 mg tablet 25 mg PO BID HEART #180 tabs 09/03/20 [Rx Last Taken 03/18/23] lisinopril 40 mg tablet 40 mg PO BID #180 tabs 08/31/23 [Rx Last Taken Unknown] ipratropium 0.5 mg-albuterol 3 mg (2.5 mg base)/3 mL nebulization soln 3 ml inhalation Q6H #180 mL 09/03/23 [Rx Last Taken Unknown] Nebulizer machine #1 ea 09/15/23 [Rx Last Taken Unknown] Allergy/AdvReac Type Severity Reaction Status Date / Time Iodinated Contrast Media Allergy Other Verified 09/03/23 10:09 [CONTRASTS] meperidine [From Demerol] Allergy Unknown Verified 09/03/23 10:09 Penicillins [PCN] Allergy Rash Verified 09/03/23 10:09 Family History Mother Hypertension Diabetes Father Cancer Surgical History History of appendectomy History of cataract surgery History of cholecystectomy History of colonoscopy with polypectomy History of left heart catheterization (09/03/11) History of total hip arthroplasty Social History household members: none Smoking Status: Former smoker quit date: 04/04/23 alcohol intake: current substance use type: does not use ROS ROS Narrative Admission Review of Systems: CONSTITUTIONAL: No weight loss, fever, chills, + weakness or fatigue. HEENT: + Lightheadedness, dizziness. Eyes: No visual loss, blurred vision, double vision or yellow sclerae. Ears, Nose, Throat: No hearing loss, sneezing, congestion, runny nose or sore throat. SKIN: No rash or itching, lesions, wounds. CARDIOVASCULAR: + Lightheadedness, dizziness, near syncopal type sensation, chronic edema. No chest pain, chest pressure or chest discomfort, palpitations, orthopnea. RESPIRATORY: + Chronic dyspnea primarily with exertion. No marked cough, increased sputum, wheezing or hemoptysis. GASTROINTESTINAL: No anorexia, nausea, vomiting or diarrhea, abdominal pain, melena, BRBPR. GENITOURINARY: No dysuria, frequency, urgency or retention. NEUROLOGICAL: + Lightheadedness, dizziness, falls, near-syncope type sensation. No headache, paralysis, ataxia, numbness or tingling in the extremities, focal weakness, change in bowel or bladder control, seizure. MUSCULOSKELETAL: + muscle, back pain, joint pain or stiffness. HEMATOLOGIC: No anemia, bleeding or bruising. LYMPHATICS: No enlarged nodes. No history of splenectomy. PSYCHIATRIC: No history of depression or anxiety. ENDOCRINOLOGIC: No reports of sweating, cold or heat intolerance. No polyuria or polydipsia. ALLERGIES: No history of asthma, hives, eczema or rhinitis. Vital Signs Vital Signs Vital Signs: 10/12/23 02:59 10/12/23 03:06 10/12/23 03:36 Temperature 98.5 F Temperature Source Temporal Pulse Rate 74 Pulse Rate [Lying] Pulse Rate [Sitting (for 1 minute prior to obtaining)] Pulse Rate [Standing (for 1 minute prior to obtaining)] Respiratory Rate 20 H Respiratory Effort Respiratory Depth Respiratory Pattern Blood Pressure 142/54 H Blood Pressure [Lying] Blood Pressure [Sitting (for 1 minute prior to obtaining)] Blood Pressure [Standing (for 1 minute prior to obtaining)] Blood Pressure Mean 83 Blood Pressure Mean [Lying] Blood Pressure Mean [Sitting (for 1 minute prior to obtaining)] Blood Pressure Mean [Standing (for 1 minute prior to obtaining)] Pulse Ox 85 93 96 Oxygen Delivery Method Room Air Nasal Cannula Nasal Cannula Oxygen Flow Rate (L/min) 3 3 10/12/23 04:00 10/12/23 05:01 10/12/23 05:00 Temperature Temperature Source Pulse Rate 83 Pulse Rate [Lying] 77 Pulse Rate [Sitting (for 1 minute prior to obtaining)] 82 Pulse Rate [Standing (for 1 minute prior to obtaining)] 74 Respiratory Rate 21 H Respiratory Effort Normal Non-Labored Respiratory Depth Normal Respiratory Pattern Normal Blood Pressure 133/90 H Blood Pressure [Lying] 142/65 H Blood Pressure [Sitting (for 1 minute prior to obtaining)] 160/71 H Blood Pressure [Standing (for 1 minute prior to obtaining)] 141/64 H Blood Pressure Mean 104 Blood Pressure Mean [Lying] 90 Blood Pressure Mean [Sitting (for 1 minute prior to obtaining)] 100 Blood Pressure Mean [Standing (for 1 minute prior to obtaining)] 89 Pulse Ox 94 Oxygen Delivery Method Room Air Nasal Cannula Oxygen Flow Rate (L/min) Weight Weight: 250 lb 11.2 oz Body Mass Index (BMI) 43.0 Physical Exam Narrative Physical Examination: General: Awake, alert, oriented x 3 and cooperative, seated upright in the ED bed, fatigued, no acute distress. Skin: Normal color, normal turgor, no icterus, no cyanosis except occasional staged abrasion, scratches, bilateral lower extremity venous stasis skin changes. HEENT: AT/NC, EOMI, PERRLA, dry MM, no carotid bruits or JVD noted; however, very thickened neck makes evaluation difficult. Lungs: Diminished, distant, mildly increased respiratory rate but no distress, pursed lip breathing which she notes is chronic, no rales, ronchi or wheezing. Heart: Regular rate and rhythm; no gallop, rub audible. Abdomen: Soft, morbidly obese, NTTP, distant BS, difficult to discern distentionand HSM given habitus. Extremities: No cyanosis, no clubbing, mild peripheral nonpitting edema distallyin the bilateral lower extremity, see skin. Neurological: Patient awake, alert, oriented as noted, cognitive function intact; pupils equally reactive to light and accommodation, cranial nerves grossly normal, moving all 4 extremities, no focal deficits, strength moderatelyto severely global decreased. Psychiatric: Affect appears flat, fatigued, no acute evidence of depressive or anxiety feelings. Results Lab / Micro Data 10/12/23 03:50 10/12/23 03:20 Labs: Laboratory Results - last 24 hr 10/12/23 03:20: WBC Cancelled, Corrected WBC Cancelled, RBC Cancelled, Hgb Cancelled, Hct Cancelled, MCV Cancelled, MCH Cancelled, MCHC Cancelled, RDW Std Deviation Cancelled, RDW Coeff of [place] Cancelled, Plt Count Cancelled, MPV Cancelled, Immature Gran % (Auto) Cancelled, Neut % (Auto) Cancelled, Lymph % (Auto) Cancelled, [place] % (Auto) Cancelled, Eos % (Auto) Cancelled, Baso % (Auto)Cancelled, Absolute Neuts (auto) Cancelled, Absolute Lymphs (auto) Cancelled, Total Counted Cancelled, Neutrophils % (Manual) Cancelled, Band Neutrophils % Cancelled, Lymphocytes % (Manual) Cancelled, Monocytes % (Manual) Cancelled, Eosinophils % (Manual) Cancelled, Basophils % (Manual) Cancelled, Metamyelocytes% Cancelled, Myelocytes % Cancelled, Promyelocytes % Cancelled, Blast Cells % Cancelled, Plasma Cell % (Manual) Cancelled, Other Cells % Cancelled, Nucleated RBC % Cancelled, Nucleated RBCs/100 WBC Cancelled, Differential Comment Cancelled, Diff Path Review Cancelled, Hypersegmented Neuts Cancelled, Atypical Lymphocytes Cancelled, Reactive Lymphocytes Cancelled, Smudge Cells Cancelled, Toxic Granulation Cancelled, Toxic Vacuolation Cancelled, Dohle Bodies Cancelled, Meggan Rods Cancelled, Platelet Estimate Cancelled, Plt Morphology Comment Cancelled, RBC Morphology Cancelled 10/12/23 03:20: RBC Morphology Cancelled, Polychromasia Cancelled, HypochromasiaCancelled, Basophilic Stippling Cancelled, Anisocytosis Cancelled, Microcytosis Cancelled, Macrocytosis Cancelled, Spherocytes Cancelled, Sickle Cells Cancelled, Target Cells Cancelled, Tear Drop Cells Cancelled, Ovalocytes Cancelled, Stomatocytes Cancelled, Morgan-Dighton Bodies Cancelled, Mitchell Cells Cancelled, Bite Cells Cancelled, Crenated Cell Cancelled, Acanthocytes (Spur) Cancelled, Rouleaux Cancelled, Schistocytes Cancelled, Sodium 138, Potassium 3.9, Chloride 104, Carbon Dioxide 29.0, Anion Gap 5, BUN 16, Creatinine 1.14 H, Estim Creat Clear Calc 54.33, Est GFR (MDRD) Af Amer 60, Est GFR (MDRD) Non-Af 50 L, BUN/Creatinine Ratio 14.0, Glucose 247 H, Calcium 8.4 L 10/12/23 03:50: WBC 18.1 H, RBC 3.73 L, Hgb 12.6, Hct 37.9, MCV 101.6 H, MCH 33.8 H, MCHC 33.2, RDW Std Deviation 46.0 H, RDW Coeff of [place] 12.3, Plt Count 159, MPV 11.4, Immature Gran % (Auto) 0.400, Neut % (Auto) 83.0 H, Lymph % (Auto) 7.9 L, [place] % (Auto) 7.9, Eos % (Auto) 0.4, Baso % (Auto) 0.4, Absolute Neuts (auto) 15.0 H, Absolute Lymphs (auto) 1.44, Nucleated RBC % 0 Rhythm Strip Rhythm Strip: Sinus Rhythm Rate: 75 Ectopy: None Imaging Radiology Impression Brain CT 10/12/23 03:10 IMPRESSION: No acute intracranial finding. Electronically Signed: Mark Mcdowell MD at 3:47 EDT , Chest X-Ray 10/12/23 03:30 IMPRESSION: No acute pulmonary finding. Electronically Signed: Mark Mcdowell MD at 3:45 EDT , Assessment & Plan Assessment/Plan (1) Multiple falls: PLAN: Plan The patient is a 73 y/o F w/ PMHx: JONO using oxygen qHS only, CKD possible stageIII unclear subtype, Morbid Obesity, HTN, HLD, Chronic COPD w/ Chronic Hypoxic Respiratory Failure (2-3L NC), Former tobacco use, Nonobstructive CAD/Nonischemic cardiomyopathy who presents to the [facility] ED on 4/8/24 with historyof 3 days of progressively worsening fatigue, malaise, dizziness and frequent falls with no recent fevers or chills reporting that she has been losing her balance and occasionally falling backwards with no head trauma or loss of consciousness with mildly increased lower extremity swelling above her baseline and reports that she recently started new medications including bupropion to assist in decreasing her appetite but unfortunately upon evening prior to ED presentation following a fall she could not get up prompting EMS call and transition to the ED given severe debility. #1. Adult FTT secondary to Dizziness/LH, ? Vertiginous symptoms (lower suspicion), debility with frequent falls, adult failure to thrive with leukocytosis of unclear etiology: Will admit to PCU to be cautious, will hold patient bupropion especially given onset of frequent falls and dizziness following start of this medication, CT head without acute findings and timeline would have expected findings if CVA and also would be constant, will cycle cardiac enzymes, will obtain orthostatic vital signs, will judiciously hydrate pending orthostatic vital signs and may bolus IV fluids as needed pending results, magnesium level requested, FLP in AM, urinalysis and urine culture requested but pending upon evaluation, procalcitonin requested, will judiciouslyhydrate and repeat chest x-ray in the a.m. given concern for possibly infectiousunclear source as well, PT/OT/case management consult for discharge planning. #2. Nonobstructive CAD/nonischemic cardiomyopathy: Patient with single-vessel diagonal branch disease, nonobstructive, following with cardiology with last evaluation 08/28/2023 in the office, will continue aspirin, statin, Coreg, lisinopril home regimen. #3. Chronic COPD with chronic hypoxic respiratory failure (2-3L NC): Will maintain on home oxygen supplementation, continue ATC duonebs, PRN albuterol, HOB, IS parameters. #4. Hypertension: Continue home regimen including lisinopril, Coreg, PRN hydralazine. #5. Hyperlipidemia: We will continue patient on statin therapy. #6. Morbid Obesity: Weight loss and lifestyle changes encouraged. Will hold patient bupropion especially given onset of frequent falls and dizziness following start of this medication. #7. Former Tobacco Abuse: Encouraged continued tobacco cessation. #8. Chronic Kidney Disease Stage III unclear subtype per GFR trending: Admission BUN/Cr 16/1.14, GFR 50, baseline renal function 0.7-1.0, most recently noted 09/03/2023 creatinine 1.07 with at that time GFR noted to be 53 consistent with stage III, repeat BMP in AM. #9. JONO: Patient does not use CPAP or BiPAP but only supplemental oxygen at night. #10. DVT prophylaxis: Lovenox. #11. CODE status: Patient MIGUEL is her she notes and living will is shebelieves in place but uncertain. Discussed CODE status at length including difference between FULL code, DNR-CCA and DNR-CC status. Following discussions about the differences in these status, requested Full Code status. [facility] Face to Face Time: 16 minutes. Charges/Coding Visit Charges Inpatient E&M: 43419 Init Hosp L2 Procedures Hospitalists Procedures: 98009 Advncd Care Plan 30 Min 10/12/23 0549 <Electronically signed by Chantelle Chavarria MD> Cosigner Signature (if applicable): CC: Dr. Chantelle Chavarria MD; Dr. Justin Bolden MD~ Signed [facility] Work Phone: Progress note Author Kena Reynolds [facility] Note Date/Time April 03, 2025 11:12am [facility] [address] [place], [place] [address] OFFICE VISIT Date of Service: 04/03/25 MR#: [id number] Acct: [id number] Name: SALLY AYALA Rep #: [id number] : 1950 Provider: SHANTA Reynolds Age/Sex: 74/F Location: [facility] [place].PMW Status: Signed Assessment and Plan Assessment and Plan (1) COPD (chronic obstructive pulmonary disease): Status: Chronic Qualifiers: COPD type: unspecified COPD Qualified Code(s): J44.9 - Chronic obstructive pulmonary disease, unspecified Comment: FEV1 32% of predicted Plan: She does not appear to be an exacerbation of COPD today. No need for prednisoneor antibiotic. Continue current maintenance medication, on triple therapy with the use of Trelegy. No additional testing at this time. Contact the office forany new or worsening symptoms. An acute visit and typically be arranged within 1-2 days. Follow-up in November. (2) Obesity: Status: Chronic Qualifiers: Obesity type: due to excess calories Obesity classification: adult class 3 (BMI >= 40) Serious obesity comorbidity presence: with serious comorbidity Body mass index: BMI 40.0-44.9 Qualified Code(s): E66.01 - Morbid (severe) obesity due to excess calories; Z68.41 - Body mass index [BMI] 40.0-44.9, adult Plan: Complicates exam, plan, care and prognosis. Continue to encourage weight loss. (3) Hypoxia: Status: Chronic Plan: She is using and benefiting from supplemental oxygen. Continue to titrate as needed to maintain saturations 89 to 92%. Intolerant of NIV. (4) Smoking greater than 30 pack years: Status: Chronic Comment: Quit smoking March 2023 Plan: She remains appropriate for repeat LDCT which will be due in October 2024, ordered previously. Follow-up in November to discuss test results. Medications: New albuterol sulfate 90 mcg/actuation 2 puffs inhalation Q4H PRN 8.5 grams 5RF SHORTNESS OF BREATH/WHEEZING Plan Details Additional Comments: This note was generated with [employer] dictation software. It may contain incorrect words, spelling, and punctuation that were not noted in checking the note before signing. Follow Up: 11/03/25 HPI 3 M FU Chief Complaint: Leg swelling HPI Comments Details: This patient presents to the office today for follow-up of her COPD with chronic hypoxic respiratory failure and to discuss test results. She is in a wheelchair and on supplemental oxygen. She has not recently been seen in the ED or urgent care for any respiratory illness. She has not required any antibiotics or prednisone for any breathing problems. She is compliant with use of Trelegy 1 puff daily. She does report rinsing her mouth out after each use. She denies any medication side effect such as sore throat or thrush. She is compliant with supplemental oxygen. She uses 3 L/min continuous. She uses 3 L/min continuous with sleep. If you recall, she quit smoking over 1 year ago, but she smells of smoke. She does have a greater than [id number] smoking history. She does have shortness of breath on exertion. She reports a dry cough but denies any sputum production or hemoptysis. She denies any wheezing, chest tightness, chest pain or palpitations. She denies any fever, chills or body aches. She has lower extremity edema. It has progressed over the past few weeks. She has been working with cardiology and recently had one of her medication "decreased from 10 mg to 5 mg". She is upset because she is not able to fit in any of her shoes. She was set up with a noninvasive ventilator after the last office visit, however she was not able to tolerate it and returned it AGAINST MEDICAL ADVICE. Intake Vital Signs 11/01/24 08:31 04/03/25 07:57 Height 5 ft 4 in 5 ft 4 in Weight: 243 lb BMI 41.7 BP 133/81 H Blood Pressure Location Lt brachial Position Sitting Respiration 20 H Pulse 67 Pulse Source Monitor Temp 97.4 F L Temperature Source Temporal Artery Pulse Oximetry (%) 98 Oxygen Delivery Method nasal canula Oxygen Flow Rate (L/min) 3 Intake Visit Reasons: 3 M FU Chief Complaint: hosp f/u SOB, hypoxia Engineering Program Analyst Required: No DME Vendor: Dustin Accompanied by: Self Allergies Iodinated Contrast Media (CONTRASTS) Allergy (Verified 04/03/25 10:42) Other meperidine (From Demerol) Allergy (Verified 04/03/25 10:42) Unknown Penicillins (PCN) Allergy (Verified 04/03/25 10:42) Rash Medications ?Medication ?Instructions ?Recorded ?Confirmed ?Type aspirin 81 mg tablet,delayed 81 mg PO DAILY HEART HEAL TH 10/02/16 04/03/25 History release imipramine HCl 25 mg tablet 25 - 50 mg PO QHS BLADDER CONTROL 10/02/16 04/03/25 History simvastatin 40 mg tablet 40 mg PO QHS CHOLESTEROL 04/03/25 History Nebulizer machine #1 ea 09/15/23 04/03/25 Rx bupropion HCl 300 mg 24 hr tablet, 300 mg PO DAILY [facility] 10/12/23 04/03/25 History extended release carvedilol 25 mg tablet 25 mg PO Q12H HEART 10/12/23 04/03/25 History ipratropium 20 mcg-albuterol 100 1 puff inhalation BID 03/08/24 04/03/25 History mcg/actuation mist for inhalation (Combivent Respimat) metformin 1,000 mg tablet 1,000 mg PO BID diabetes 09/2604/03/25 History apixaban 5 mg tablet (Eliquis) 5 mg PO BID afib 30 day s #60 tabs 03/29/24 04/03/25 Rx pantoprazole 40 mg tablet,delayed 40 mg PO BID gerd 30 days #60 tabs 03/29/24 04/03/25 Rx release cholecalciferol (vitamin D3) 25 3,000 unit PO DAILY vi tamin 09/26/24 04/03/25 History mcg (1,000 unit) capsule lisinopril 40 mg tablet 40 mg PO QDAY blood pressure 09/26/24 04/03/25 History fluticasone fur. 200 mcg-umeclid 1 inh inhalation LOVE Y breathing 10/11/24 04/03/25 Rx 62.5 mcg-vilant 25 mcg #60 ea inhalat.powder (Trelegy Ellipta) amlodipine 5 mg tablet 5 mg PO DAILY blood pressure #30 03/28/25 04/03/25 Rx tabs albuterol sulfate 90 mcg/actuation 2 puff inhalation Q 4H PRN 04/03/25 04/03/25 Rx aerosol inhaler SHORTNESS OF BREATH/WHEEZING #8.5 grams Have you fallen in the past year?: Yes PFSH Medical History (Reviewed 04/03/25 @ 11:00 by Kena Reynolds TRANSITIONAL CARE NURSE, TRANSITIONAL CARE NURSE-C) Acute and chronic respiratory failure with hypoxia Pneumonia Diabetes mellitus, type 2 Chronic hypoxic respiratory failure, on home oxygen therapy Morbid obesity CKD (chronic kidney disease), stage III Sleep apnea Nonischemic cardiomyopathy Essential (primary) hypertension LBBB (left bundle branch block) COPD (chronic obstructive pulmonary disease) Hyperlipidemia Nicotine abuse Atherosclerotic heart disease of [place] coronary artery without angina pectoris Bronchitis Surgical History History of colonoscopy with polypectomy History of total hip arthroplasty History of cholecystectomy History of cataract surgery History of appendectomy History of left heart catheterization (09/03/11) Family History Mother Hypertension Diabetes Father Cancer Social History household members: none Smoking Status: Former smoker quit date: 04/04/23 how long ago did patient quit smokin alcohol intake: never substance use type: does not use caffeine: Yes Type: carbonated beverages Number of servings: 1 Review of Systems Resp Respiratory: Yes as per HPI Exam Const Constitutional: Positive conversant, cooperative, in no acute respiratory distress, well developed, well nourished, smells of smoke, frail appearing, obese, appears older than stated age and wearing supplemental oxygen Head Head: Yes normocephalic, Yes atraumatic and No cyanosis of lips/distal nose Eyes Eye: Positive clear conjunctiva; Negative nystagmus or scleral abnormality Ears Ear: Positive hearing normal and external ears normal Nose Nose: Yes external nose normal Mouth Mouth: Positive oral mucosae normal Neck Neck: Positive normal visual inspection, thick neck, full ROM and trachea midline Chest Wall Chest: Positive normal inspection of the chest and symmetric chest movement; Negative increased A/P diameter Resp lung sounds: Positive diminished lung sounds, wheezes, prolonged expiratory time and normal chronic state of increased work of breathing; Negative rhonchi, rales or use of accessory muscles Cardio Cardiac: Positive regular rate, regular rhythm, S1 normal and S2 normal; Negative murmur GI GI: Positive obese Genitourinary: Positive deferred Musc Musculoskeletal: Positive in a wheelchair and ROM normal; Negative kyphosis or scoliosis Skin Pulmonary Skin Exam: Positive intact; Negative lesion, rash or ulcers Extremities Extremities: No clubbing, No cyanosis and Yes edema Location: lower extremity location: Bilateral chronic with vascular changes and pitting +3 Neuro Neurologic: Yes no focal neuro deficits, Yes conversant, Yes cooperative, Yes normal cognition, Yes normal coordination, Yes normal concentration and Yes understands questions Psych Appearance: Positive grossly normal and eye contact Mental Status: Positive mental status grossly normal Mood: Positive anxious mood Affect: Positive anxious affect Coding Level of Care Code Off vis,est,level 3 Diagnoses Chronic obstructive pulmonary disease, unspecified COPD type J44.9 COPD type: unspecified COPD Class 3 severe obesity due to excess calories with serious comorbidity and body mass index (BMI) of 40.0 to 44.9 in adult E66.01; Z68.41 Obesity type: due to excess calories Obesity classification: adult class 3 (BMI >= 40) Serious obesity comorbidity presence: with serious comorbidity Body mass index: BMI 40.0-44.9 Hypoxia R09.02 Smoking greater than 30 pack years F17.210 Clinical Quality Measures Falls Risk Screening/Assistive Devices Have you fallen in the past year?: Yes 04/03/25 1327 <Electronically signed by Kena conrad NP TRANSITIONAL CARE NURSE-C> Date _ Kena Reynolds NP TRANSITIONAL CARE NURSE-C Cosigner Signature: Date (if applicable) CC: Dr. Justin Bolden MD ~ [facility] Work Phone: Reason for referral (narrative)No reason for referral information available[facility]: Chief Complaint and Reason for Visit Chief Complaint 1 Y FU Reason for Visit Atherosclerotic hear [place] disease [place] coronary artery without angina pectoris Essential (primary) hypertension Hyperlipidemia LBBB (left bundle branch block) Nonischemic cardiomyopathy Chief Complaint HYPOXIA,HYPERETENTIO N CHF HYPOXIA Reason for Visit Hypoxia Essential (primary) hypertension Nicotine abuse Chief Complaint HYPOXIA,HYPERETENTIO N CHF HYPOXIA HYPOXIA HYPOXIA HYPOXIA HYPOXIA HYPOXIA HYPOXIA HYPOXIA HYPOXIA Reason for Visit Hypoxia COPD (chronic obstructive pulmonary disease) Essential (primary) hypertension Nicotine abuse Chief Complaint HYPOXIA,HYPERETENTIO N CHF HYPOXIA HYPOXIA HYPOXIA HYPOXIA HYPOXIA HYPOXIA HYPOXIA HYPOXIA HYPOXIA HYPOXIA Hospital FU- Hypoxia COPD COPD COPD Reason for Visit COPD (chronic obstru ctive pulmonary disease) Essential (primary) hypertension Hypoxia COPD (chronic obstructive pulmonary disease) Hypoxia Obesity Sleep apnea Chief Complaint HYPOXIA,HYPERETENTIO N CHF HYPOXIA HYPOXIA HYPOXIA HYPOXIA HYPOXIA HYPOXIA HYPOXIA HYPOXIA HYPOXIA HYPOXIA Hospital FU- Hypoxia COPD COPD COPD COPD Sleep apnea, unspecified Reason for Visit COPD (chronic obstru ctive pulmonary disease) Essential (primary) hypertension Hypoxia COPD (chronic obstructive pulmonary disease) Hypoxia Obesity Sleep apnea Chief Complaint COPD COPD Sleep apnea, unspecified 9 M FU 3 M FU Reason for Visit Atherosclerotic hear [place] disease [place] coronary artery without angina pectoris Essential (primary) hypertension Hyperlipidemia LBBB (left bundle branch block) Nonischemic cardiomyopathy COPD (chronic obstructive pulmonary disease) Hypoxia Obesity Chief Complaint 9 M FU 3 M FU NEAR SYNCOPE, ADULT FTT Reason for Visit Atherosclerotic hear [place] disease [place] coronary artery without angina pectoris Essential (primary) hypertension Hyperlipidemia LBBB (left bundle branch block) Nonischemic cardiomyopathy COPD (chronic obstructive pulmonary disease) Hypoxia Obesity Abrasion, multiple sites Disequilibrium Generalized weakness Multiple falls Chief Complaint 9 M FU 3 M FU NEAR SYNCOPE, ADULT FTT NEAR SYNCOPE, ADULT FTT NEAR SYNCOPE, ADULT FTT Reason for Visit Atherosclerotic hear t disease [place] coronary artery without angina pectoris Essential (primary) hypertension Hyperlipidemia LBBB (left bundle branch block) Nonischemic cardiomyopathy COPD (chronic obstructive pulmonary disease) Hypoxia Obesity Abrasion, multiple sites Disequilibrium Generalized weakness Hyperglycemia Leukocytosis Multiple falls Chief Complaint Admit Date ACUTE ON CHRONIC HYPOXIA, PNA August 072024 11:07pm ACUTE ON CHRONIC HYPOXIA, PNA August 072024 5:00pm ACUTE ON CHRONIC HYPOXIA, PNA August 072024 5:27pm ACUTE ON CHRONIC HYPOXIA, PNA August 072024 3:54pm ACUTE ON CHRONIC HYPOXIA, PNA August 072024 5:37pm ACUTE ON CHRONIC HYPOXIA, PNA August 072024 3:38pm ACUTE ON CHRONIC HYPOXIA, PNA August 072024 8:05pm ACUTE ON CHRONIC HYPOXIA, PNA August 072024 11:54am ACUTE ON CHRONIC HYPOXIA, PNA August 072024 6:42pm Reason for Visit Admit Date Acute and chronic respiratory failure wi th hypoxia August 28, 2024 11:07pm Pneumonia August 28, 2024 11:07pm Chief Complaint Admit Date ACUTE ON CHRONIC HYPOXIA, PNA August 072024 11:07pm ACUTE ON CHRONIC HYPOXIA, PNA August 072024 5:00pm ACUTE ON CHRONIC HYPOXIA, PNA August 072024 5:27pm ACUTE ON CHRONIC HYPOXIA, PNA August 072024 3:54pm ACUTE ON CHRONIC HYPOXIA, PNA August 072024 5:37pm ACUTE ON CHRONIC HYPOXIA, PNA August 072024 3:38pm ACUTE ON CHRONIC HYPOXIA, PNA August 072024 8:05pm ACUTE ON CHRONIC HYPOXIA, PNA August 072024 11:54am ACUTE ON CHRONIC HYPOXIA, PNA August 072024 6:42pm 9 M FU September 26, 2024 11: 20am SMOKER October 07, 2024 2:40 pm Reason for Visit Admit Date Acute and chronic respiratory failure wi th hypoxia August 28, 2024 11:07pm Pneumonia August 28, 2024 11:07pm New onset a-fib September 26, 2024 11: 20am Atherosclerotic heart diseas e of [place] coronary artery without angina pectoris September 26, 2024 11:20am Essential (primary) hypertension September 042024 11:20am Hyperlipidemia September 26, 2024 11: 20am LBBB (left bundle branch block) September 262024 11:20am Nonischemic cardiomyopathy September 26, 025 11:20am Chief Complaint Admit Date 6 M FU March 28, 2025 1:52pm INT LAB ORDERS March 28, 2025 2:57pm 3 M FU April 03, 2025 10:23am Reason for Visit Admit Date Atrial fibrillation March 28, 2025 1:52pm Lower extremity edema March 28 1:52pm Atherosclerotic heart diseas e of [place] coronary artery without angina pectoris March 28, 2025 1:52pm Essential (primary) hypertension Septemb er 2024 1:52pm Hyperlipidemia March 28, 2025 1:52pm LBBB (left bundle branch block) Septembe r 2024 1:52pm Nonischemic cardiomyopathy March 1:52pm COPD (chronic obstructive pulmonary dise ase) April 03, 2025 10:23am Hypoxia April 03, 2025 10:23am Obesity April 03, 2025 10:23am Smoking greater than 30 pack years [facility] 2024 10:23am Family History No Family History Records Found Relationship Condition Age at Onset Recorded Date/T alissa mother Hypertension Unknown Diabetes mellitus Unknown father Malignant neoplasm Unknown Advance Directives No Advanced Directives Records Found Advance Directive Response Recorded Date/ Time Living Will Yes April 13 1:08pm Power of Biodiesel Plant Superintendent Yes April 13 1:08pm Advance Directive Response Recorded Date/ Time Living Will No March 19, 2023 2:23pm Power of Biodiesel Plant Superintendent No March 2:23pm Advance Directive Response Recorded Date/ Time Living Will No March 19, 2023 8:14pm Power of Biodiesel Plant Superintendent No March 8:14pm Advance Directive Response Recorded Date/ Time Living Will No March 19, 2023 7:14pm Power of Biodiesel Plant Superintendent No March 7:14pm Advance Directive Response Recorded Date/ Time Living Will No October 12, 2023 3:06am Power of Biodiesel Plant Superintendent No October 11 3:06am Advance Directive Response Recorded Date/ Time Name of Medical Power of Biodiesel Plant Superintendent claudia conley tler- October 12, 2023 6:04am Living Will Yes October 12, 2023 6:04am Power of Biodiesel Plant Superintendent Yes October 11 6:04am Advance Directive Response Recorded Date/ Time Living Will Yes August 29, 025 2:49am Power of Biodiesel Plant Superintendent Yes August 29, 2024 2:49am Name of Medical Power of Biodiesel Plant Superintendent Cedrick - husban d August 29, 2024 2:49am Advance Directive Response Recorded Date/ Time Living Will Yes August 29 025 2:49am Do you have a Healthcare Pow er of Biodiesel Plant Superintendent? Yes August 29, 2024 2:49am Name of Medical Power of Biodiesel Plant Superintendent Cedrick - hus[place] d August 29, 2024 2:49am Living Will Yes October 12, 2023 6:04am Do you have a Healthcare Pow er of Biodiesel Plant Superintendent? Yes October 12, 2023 6:04am Summary Purpose Additional Source Comments Care Teams (unrecognized sec tion and content) Team Status: Active Member Role Status Dates Dr. Justin Bolden MD Family Provider Active Dr. Justin Bolden MD Primary Care Provider Active Team Status: Inactive Member Role Status Dates Dr. Justin Bolden MD Primary Care Provider, Referring Provider Active Amber Lagunas PA, PA Attending Provider Active Team Status: Inactive Member Role Status Dates Dr. Justin Bolden MD Primary Care Provi pato, Attending Provider, Referring Provider Active Team Status: Active Member Role Status Dates Dr. Justin Bolden MD Primary Care Provider Active Dr. Harjit Ivory , Emergency Provider Active Dr. Jennie Salgado MD Admit Provider, At tending Provider, Other Provider Active Team Status: Active Member Role Status Dates Dr. Justin Bolden MD Primary Care Provider Active Dr. Harjit Ivory DO Emergency Provider Active Dr. Jennie Salgado MD Admit Provider, Attending Provid er Active Team Status: Active Member Role Status Dates Dr. Justin Bolden MD Primary Care Provider Active Dr. Harjit Ivory DO Emergency Provider Active Dr. Jennie Salgado MD Admit Provider, Other Provider A ctive Dr. Farhad Garza MD Attending Provider, Other Provider Active Team Status: Active Member Role Status Dates Dr. Justin Bolden MD Primary Care Provider Active Dr. Kamaljit Trevizo MD Attending Provider Active Team Status: Active Member Role Status Dates Dr. Justin Bolden MD Primary Care Provider Active Dr. Jorge Duarte MD Attending Provider Active Team Status: Active Member Role Status Dates Dr. Justin Bolden MD Primary Care Provider Active Dr. Harjit Ivory , DO Emergency Provider Active Dr. Jennie Salgado MD Admit Provider, Other Provider A ctive Dr. Blaise العلي , DO Attending Provider, Other Pro vider Active Dr. Farhad Garza MD Other Provider Active Dr. Chirag Rodriguez MD Other Provider Active Dr. Bryce Razo DO Other Provider Active Dr. Donna Brunson MD Other Provider Active Dr. Tramaine Ordaz MD Other Provider Active Dr. Kurt Root MD Other Provider Active Kena Reynolds TRANSITIONAL CARE NURSE, TRANSITIONAL CARE NURSE-C Other Provider Active Team Status: Active Member Role Status Dates Dr. Justin Bolden MD Primary Care Provider Active Dr. Harjit Ivory , Emergency Provider Active Dr. Jennie Salgado MD Admit Provider, Other Provider A ctive Dr. Blaise العلي , DO Other Provider Active Dr. Farhad Garza MD Other Provider Active Dr. Chirag Rodriguez MD Other Provider Active Dr. Bryce Razo DO Attending Provider, Other Provide r Active Dr. Donna Brunson MD Other Provider Active Dr. Tramaine Ordaz MD Other Provider Active Dr. Kurt Root MD Other Provider Active Kena Reynolds NP, TRANSITIONAL CARE NURSE-C Other Provider Active Team Status: Inactive Member Role Status Dates Dr. Justin Bolden MD Primary Care Provider Active Dr. Harjit Ivory , DO Emergency Provider Active Dr. Jennie Salgado MD Admit Provider, Other Provider A ctive Dr. Blaise العلي , DO Attending Provider Active Dr. Farhad Garza MD Other Provider Active Dr. Chirag Rodriguez MD Other Provider Active Dr. Bryce Razo , DO Other Provider Active Dr. Donna Brunson MD Other Provider Active Dr. Tramaine Ordaz MD Other Provider Active Dr. Kurt Root MD Other Provider Active Kena Reynolds TRANSITIONAL CARE NURSE, TRANSITIONAL CARE NURSE-C Other Provider Active Team Status: Active Member Role Status Dates Dr. Justin Bolden MD Primary Care Provider Active Dr. Kamaljit Trevizo MD Attending Provider, Referring Pro vider Active Team Status: Active Member Role Status Dates Dr. Justin Bolden MD Primary Care Provider Active Dr. Jorge Duarte MD Attending Provider Active Dr. Jennie Salgado MD Referring Provider Active Team Status: Active Member Role Status Dates Dr. Justin Bolden MD Primary Care Provider Active Dr. Harjit Ivory , Emergency Provider Active Dr. Jennie Salgado MD Admit Provider, Other Provider A ctive Dr. Blaise العلي , DO Referring Provider, Other Pro vider Active Dr. Farhad Garza MD Other Provider Active Dr. Chirag Rodriguez MD Other Provider Active Dr. Bryce Razo , DO Attending Provider, Other Provide r Active Dr. Donna Brunson MD Other Provider Active Dr. Tramaine Ordaz MD Other Provider Active Dr. Kurt Root MD Other Provider Active Kena Reynolds TRANSITIONAL CARE NURSE, TRANSITIONAL CARE NURSE-C Other Provider Active Team Status: Inactive Member Role Status Dates Dr. Justin Bolden MD Primary Care Provider, Referring Provider Active Kena Reynolds NP, TRANSITIONAL CARE NURSE-C Attending Provider Active Team Status: Active Member Role Status Dates Dr. Justin Bolden MD Primary Care Provider Active Dr. Harjit Ivory , Emergency Provider Active Dr. Jennie Salgado MD Admit Provider, At tending Provider, Other Provider Active Dr. Blaise العلي , DO Other Provider Active Dr. Farhad Garza MD Other Provider Active Dr. Chirag Rodriguez MD Other Provider Active Dr. Bryce Razo DO Other Provider Active Dr. Donna Brunson MD Other Provider Active Dr. Tramaine Ordaz MD Other Provider Active Dr. Kurt Root MD Other Provider Active Kena Reynolds TRANSITIONAL CARE NURSE, TRANSITIONAL CARE NURSE-C Other Provider Active Team Status: Active Member Role Status Dates Dr. Justin Bolden MD Primary Care Provider Active Kena Reynolds NP, TRANSITIONAL CARE NURSE-C Referring Provider, Other Pr ovider Active Dr. Bryce Razo , Attending Provider Active Team Status: Inactive Member Role Status Dates Dr. Justin Bolden MD Primary Care Provider Active Kena Reynolds TRANSITIONAL CARE NURSE, TRANSITIONAL CARE NURSE-C Attending Provider, Referrin g Provider Active Team Status: Active Member Role Status Dates Dr. Justin Bolden MD Primary Care Provider Active Kena Reynolds TRANSITIONAL CARE NURSE, TRANSITIONAL CARE NURSE-C Attending Provider, Referrin g Provider Active Team Status: Active Member Role Status Dates Dr. Justin Bolden MD Primary Care Provider Active Kena Reynolds TRANSITIONAL CARE NURSE, TRANSITIONAL CARE NURSE-C Referring Provider, Other Pr ovider Active Dr. Chirag Rodriguez MD Attending Provider Active Team Status: Inactive Member Role Status Dates Dr. Justin Bolden MD Primary Care Provider, Referring Provider Active Acacia Lindquist TRANSITIONAL CARE NURSE, TRANSITIONAL CARE NURSE-C Attending Provider Active Team Status: Inactive Member Role Status Dates Dr. Justin Bolden MD Primary Care Provider Active Acacia Lindquist TRANSITIONAL CARE NURSE, TRANSITIONAL CARE NURSE-C Attending Provider, Referring P rovider Active Team Status: Active Member Role Status Dates Dr. Justin Bolden MD Primary Care Provider Active Dr. Aquilino Sheikh MD Emergency Provider Active Dr. Chantelle Chavarria MD Admit Provider, Attending Prov ider Active Team Status: Active Member Role Status Dates Dr. Justin Bolden MD Primary Care Provider Active Dr. Aquilino Sheikh MD Emergency Provider Active Dr. Chantelle Chavarria MD Admit Provider, Other Provider Active Dr. Penny Redd DO Attending Provider, Other Provide r Active Team Status: Inactive Member Role Status Dates Dr. Justin Bolden MD Primary Care Provider Active Dr. Aquilino Sheikh MD Emergency Provider Active Dr. Chantelle Chavarria MD Admit Provider, Other Provider Active Dr. Penny Redd DO Attending Provider Active Team Status: Active Member Role Status Dates Dr. Justin Bolden MD Primary Care Provider Active Team Status: Inactive Member Role Status Dates Dr. Justin Bolden MD Primary Care Provider Active Start: August 01, 2024 End: August 01, 2024 Dr. Justin Bolden MD Attending Provider Active Start: August 01, 2024 End: August 01, 2024 Dr. Justin Bolden MD Referring Provider Active Start: August 01, 2024 End: August 01, 2024 Team Status: Inactive Member Role Status Dates Dr. Justin Bolden MD Primary Care Provider Active Start: August 28, 2024 End: September 01, 2024 Dr. Jackson Negrete DO Referring Provider Active Start: August 28, 2024 End: September 01, 2024 Dr. Jackson Caden , DO Emergency Provider Active Start: August 28, 2024 End: September 01, 2024 Dr. Chantelle Chavarria MD Admit Provider Active St art: August 28, 2024 End: September 01, 2024 Dr. Chantelle Chavarria MD Other Provider Active St art: August 28, 2024 End: September 01, 2024 Dr. Blaise العلي DO Attending Provider Active Start: August 28, 2024 End: September 01, 2024 Team Status: Active Member Role Status Dates Dr. Justin Bolden MD Primary Care Provider Active Start: August 29, 2024 Dr. Jackson Negrete DO Referring Provider Active Start: August 29, 2024 Dr. Jackson Negrete DO Emergency Provider Active Start: August 29, 2024 Dr. Chantelle Chavarria MD Admit Provider Active St art: August 29, 2024 Dr. Chantelle Chavarria MD Other Provider Active St art: August 29, 2024 Dr. Blaise العلي DO Other Provider Active S tart: August 29, 2024 Dr. Jadon Solano DO Attending Provider Active Start: August 29, 2024 Team Status: Active Member Role Status Dates Dr. Justin Bolden MD Primary Care Provider Active Start: August 29, 2024 Dr. Jackson Negrete DO Emergency Provider Active Start: August 29, 2024 Dr. Chantelle Chavarria MD Admit Provider Active St art: August 29, 2024 Dr. Chantelle Chavarria MD Other Provider Active St art: August 29, 2024 Dr. Blaise العلي DO Attending Provider Active Start: August 29, 2024 Dr. Blaise العلي DO Other Provider Active S tart: August 29, 2024 Team Status: Active Member Role Status Dates Dr. Justin Bolden MD Primary Care Provider Active Start: August 30, 2024 Dr. Jackson Negrete DO Referring Provider Active Start: August 30, 2024 Dr. Jackson Negrete DO Emergency Provider Active Start: August 30, 2024 Dr. Chantelle Chavarria MD Admit Provider Active St art: August 30, 2024 Dr. Chantelle Chavarria MD Other Provider Active St art: August 30, 2024 Dr. Blaise العلي DO Other Provider Active S tart: August 30, 2024 Dr. Jadon Solano DO Attending Provider Active Start: August 30, 2024 Team Status: Active Member Role Status Dates Dr. Justin Bolden MD Primary Care Provider Active Start: August 30, 2024 Dr. Jackson Negrete DO Emergency Provider Active Start: August 30, 2024 Dr. Chantelle Chavarria MD Admit Provider Active St art: August 30, 2024 Dr. Chantelle Chavarria MD Other Provider Active St art: August 30, 2024 Dr. Blaise العلي DO Attending Provider Active Start: August 30, 2024 Dr. Blaise العلي DO Other Provider Active S tart: August 30, 2024 Team Status: Active Member Role Status Dates Dr. Justin Bolden MD Primary Care Provider Active Start: August 31, 2024 Dr. Jackson Negrete DO Emergency Provider Active Start: August 31, 2024 Dr. Chantelle Chavarria MD Admit Provider Active St art: August 31, 2024 Dr. Chantelle Chavarria MD Other Provider Active St art: August 31, 2024 Dr. Blaise العلي DO Attending Provider Active Start: August 31, 2024 Dr. Blaise العلي DO Other Provider Active S tart: August 31, 2024 Team Status: Active Member Role Status Dates Dr. Justin Bolden MD Primary Care Provider Active Start: August 31, 2024 Dr. Jackson Negrete DO Referring Provider Active Start: August 31, 2024 Dr. Jackson Negrete DO Emergency Provider Active Start: August 31, 2024 Dr. Chantelle Chavarria MD Admit Provider Active St art: August 31, 2024 Dr. Chantelle Chavarria MD Other Provider Active St art: August 31, 2024 Dr. Blaise العلي DO Other Provider Active S tart: August 31, 2024 Dr. Jadon Solano DO Attending Provider Active Start: August 31, 2024 Team Status: Active Member Role Status Dates Dr. Justin Bolden MD Primary Care Provider Active Start: September 01, 2024 Dr. Jackson Negrete DO Emergency Provider Active Start: September 01, 2024 Dr. Chantelle Chavarria MD Admit Provider Active St art: September 01, 2024 Dr. Chantelle Chavarria MD Other Provider Active St art: September 01, 2024 Dr. Blaise العلي DO Attending Provider Active Start: September 01, 2024 Dr. Blaise العلي DO Other Provider Active S tart: September 01, 2024 Team Status: Active Member Role Status Dates Dr. Justin Bolden MD Primary Care Provider Active Start: September 01, 2024 Dr. Jackson Negrete DO Referring Provider Active Start: September 01, 2024 Dr. Jackson Negrete DO Emergency Provider Active Start: September 01, 2024 Dr. Chantelle Chavarria MD Admit Provider Active St art: September 01, 2024 Dr. Chantelle Chavarria MD Other Provider Active St art: September 01, 2024 Dr. Blaise العلي , Other Provider Active S tart: September 01, 2024 Dr. Jadon Solano , Attending Provider Active Start: September 01, 2024 Team Status: Inactive Member Role Status Dates Dr. Justin Bolden MD Primary Care Provider Active Start: September 08, 2024 End: September 08, 2024 Dr. Justin Bolden MD Attending Provider Active Start: September 08, 2024 End: September 08, 2024 Dr. Justin Bolden MD Referring Provider Active Start: September 08, 2024 End: September 08, 2024 Team Status: Inactive Member Role Status Dates Dr. Justin Bolden MD Primary Care Provider Active Start: September 26, 2024 End: September 26, 2024 Dr. Justin Bolden MD Referring Provider Active Start: September 26, 2024 End: September 26, 2024 Sg Cao TRANSITIONAL CARE NURSE, TRANSITIONAL CARE NURSE-C Attending Provider Active S tart: September 26, 2024 End: September 26, 2024 Team Status: Inactive Member Role Status Dates Dr. Justin Bolden MD Primary Care Provider Active Start: October 07, 2024 End: October 07, 2024 Kena Reynolds TRANSITIONAL CARE NURSE, TRANSITIONAL CARE NURSE-C Attending Provider Active Start: October 07, 2024 End: October 07, 2024 Kena Reynolds TRANSITIONAL CARE NURSE, TRANSITIONAL CARE NURSE-C Referring Provider Active Start: October 07, 2024 End: October 07, 2024 Team Status: Active Member Role/Relationship Status Dates Dr. Justin Bolden MD Primary care physician Active Team Status: Inactive Member Role/Relationship Status Dates Dr. Justin Bolden MD Primary care physician Active Start: March 28, 2025 End: March 28, 2025 Dr. Justin Bolden MD Referring Provider Active Start: March 28, 2025 End: March 28, 2025 DOMENICO Prado Attending physician Active S tart: March 28, 2025 End: March 28, 2025 Team Status: Inactive Member Role/Relationship Status Dates Dr. Justin Bolden MD Primary care physician Active Start: March 28, 2025 End: March 28, 2025 DOMENICO Prado Attending physician Active S tart: March 28, 2025 End: March 28, 2025 DOMENICO Prado Referring Provider Active St art: March 28, 2025 End: March 28, 2025 Team Status: Inactive Member Role/Relationship Status Dates Dr. Justin Bolden MD Primary care physician Active Start: April 03, 2025 End: April 03, 2025 Dr. Justin Bolden MD Referring Provider Active Start: April 03, 2025 End: April 03, 2025 Kena Reynolds TRANSITIONAL CARE NURSE, TRANSITIONAL CARE NURSE-C Attending physician Active Start: April 03, 2025 End: April 03, 2025 Goals (unrecognized section and content) Goals may be documented in a n alternate sectionGoals may be documented in an alternate sectionGoals may be documented in an alternate sectionGoals may be documented in an alternate sectionGoals may be documented in an alternate sectionGoals may be documented in an alternate sectionGoals may be documented in an alternate section INFORMATION SOURCE (unrecogn ized section and content) DATE CREATED AUTHOR 04/18/2025 [facility] FOR RECORDS PERTAINING TO PATIENTS WHO ARE OR HAVE BEEN ENROLLED IN A CHEMICAL DEPENDENCY/SUBSTANCEABUSE PROGRAM, SOME INFORMATION MAY BE OMITTED. This clinical summary was aggregated from multiple sources. Caution should be exercised in using it in the provision of clinical care. This summary normalizes information from multiple sources, and as a consequence, information in this document may materially change the coding, format and clinical context of patient data. In addition, data may be omitted in some cases. CLINICAL DECISIONS SHOULD BE BASED ON THE PRIMARY CLINICAL RECORDS. [facility]. provides no warranty or guarantee of the accuracy or completeness of information in this document.
== END | disposition home or self-care (01) ==
LOC: CVS 12:38
PROVIDERS: PCP Family Medicine; Referring Provider Student in an Organized Health Care Education/Training Program; Visit Provider Student in an Organized Health Care Education/Training Program
DX: R06.02 Shortness of breath (principal)
CPT/HCPCS: 93306; Q9957; A4216; C8929

== ENCOUNTER → 2025-05-04 | Outpatient (CLI) | payer MEDICARE, OTHER, SELFPAY ==
[2025-05-04 15:26] LABS: Anion Gap 13 (5-15); BUN 20 mg/dL (4-19); BUN/Creat Ratio 15.5 RATIO (10-20); Calcium,Total 8.2 mg/dL (7.6-11.0); Carbon Dioxide 27.8 mmol/L (21.0-32.0); Chloride 102 mmol/L (98-108); Glucose 118 mg/dL (70-99); Potassium 4.2 mmol/L (3.3-5.1)
== END | disposition home or self-care (01) ==
LOC: MFPLAB 11:35
PROVIDERS: PCP Family Medicine; Visit Provider Student in an Organized Health Care Education/Training Program
DX: R60.0 Localized edema (principal)
CPT/HCPCS: 36415; 80048